=== PATIENT | male | born 1980 | race Caucasian/White ===

== ENCOUNTER → 2017-01-31 | Day surgery (SDC) | payer MEDICAID ==
[~2017-01-31] VITALS: Ht 175.3 cm; Wt 70.9 kg
[~2017-01-31] MED LIST: *morphine SULFATE 8 MG/ML PERIprocedure ONLY ONE; ACETAMINOPHEN/HYDROcodone 325 MG/5 MG TAB ONE; ACETAMINOPHEN/HYDROcodone 325 MG/5 MG TAB PO PRN; AMLO5 PO; APIX5TAB PO; ATEN-100 PO; B12-1CHW CHEW; BUPIVACAINE/EPINEPHRINE 0.5% 50 ML VIAL ONE; BUTACAP2 PO; CHLORHEXIDINE GLUCONATE 2 % 1 PACK (2 CLOTHS) TOPICAL PRN; CHOL1CAP34 PO; DO NOT ADM ANY ANTICOAGULANT DRUGS PRN; ENOX40P SQ; FERR325T PO; FLUO40CA PO; FURO1TAB60 PO; GABA600T PO; GELFOAM SIZE 100 ONE; GINK500C PO; HEPARIN SODIUM - IV 10,000 UNITS/10 ML VIAL ONE; HEPARIN SODIUM - SQ 10,000 UNITS/ML VIAL ONE; HUMALOG SQ; INSULIN HUMAN REGULAR 1,000 UNITS/10 ML VIAL SQ PRN; IRON27TA PO; LACTATED RINGER'S 1000 ML IV PRN; LISI-360 PO; LISI40TA PO; LYRI150C PO; MAGNESIUM SULFATE 1 GM/100 ML IV PRN; METOPROLOL TARTRATE 25 MG TAB PO PRN; MORPHINE SULFATE 4 MG/ML INJ IV PRN; ONDANSETRON HCL 4 MG/2 ML VIAL IV PUSH PRN; PARI1CAP PO; POTASSIUM CHLOR 20 MEQ 100 ML x 2 BAGS IV PRN; POTASSIUM CHLOR 20 MEQ/100 ML x 1 BAG IV PRN; POTASSIUM PHOSPHATE 21 MMOL/NS 250 ML IV PRN; POVIDONE IODINE 5% (ANTISEPSIS KIT) 4 APPLICATIONS EACH NARE PRN; PROPOFOL 200 MG/20 ML AMP IV ONE; PROT40TA PO; PROTAMINE SULFATE 50 MG/5 ML VIAL ONE; SERT-129 PO; SIMV20 PO; SODIUM CHLOR 0.9% 250 ML INJ 250 ML ONE; SODIUM CHLORID 0.9% 500 ML IV PRN; SODIUM CHLORIDE 0.9% FLUSH 10 ML FLUSH IV FLUSH PRN; SODIUM CHLORIDE 0.9% FLUSH 10 ML FLUSH IV FLUSH SCH; THROMBIN (TOPICAL) 5,000 UNIT VIAL ONE; TOPA50TA7 PO; TRAM50TA PO; VANCOMYCIN HCL 1000 MG VIAL ONE; VITA500C PO; [UNRECOGNIZED DRUG - CODE] PO
--- NOTE | 2017-01-31 07:51 | RADRPT ---
EXAM DATE/TIME: 01/31/2017 07:25 [facility] COMPARISON: CHEST SINGLE AP, July 21, 2013, 5:33. INDICATIONS : Pre-op fistula. Evaluate for pneumonia, pneumothorax or other communicable diseases. MEDICAL HISTORY : Hypercholesterolemia. Hypertension. Diabetic, ADHD, renal failure. SURGICAL HISTORY : Left eye surgery. ENCOUNTER: Initial ACUITY: 1 day PAIN SCORE: 0/10 LOCATION: Bilateral chest FINDINGS: A single view of the chest demonstrates the lungs to be symmetrically aerated without evidence of mas s, infiltrate or effusion. The cardiomediastinal contours are unremarkable. Osseous structures are intact. CONCLUSION: 1. No acute cardiopulmonary disease. Coy Goldsmith MD on January 31, 2017 at 7:49 Board Certified Radiologist. This report was verified electronically.
[2017-01-31 08:04] LABS: AUTOMATED NEUTROPHIL # 2.9 TH/MM3 (1.8-7.7); BASOPHIL % 0.6 % (0.0-2.0); EOSINOPHIL # 0.1 TH/MM3 (0-0.4); HEMATOCRIT 33.4 % (39.0-51.0); HEMO FLAGS DIFF FINAL; LYMPH % 40.7 % (9.0-44.0); LYMPHOCYTE # 2.4 TH/MM3 (1.0-4.8); MEAN CELL VOLUME 87.4 FL (80.0-100.0); MEAN CORPUSCULAR HEMOGLOBIN 28.2 PG (27.0-34.0); MEAN CORPUSCULAR HGB CONC 32.3 % (32.0-36.0); MONO % 7.6 % (0.0-8.0); NEUT % 49.1 % (16.0-70.0); PLATELET COUNT 188 TH/MM3 (150-450); RED BLOOD COUNT 3.82 MIL/MM3 (4.50-5.90); RED CELL DISTRIBUTION WIDTH 13.6 % (11.6-17.2); WHITE BLOOD COUNT 5.9 TH/MM3 (4.0-11.0)
[2017-01-31 08:10] VITALS: BP 163/99; PULSE 79; RESP 20; TEMP 97.6; O2SAT 100
[2017-01-31 08:42] LABS: BICARBONATE 19.6 MEQ/L (21.0-32.0); POTASSIUM 3.7 MEQ/L (3.5-5.1)
--- NOTE | 2017-01-31 10:44 | EKG ---
Date Performed: 01/31/2017 Time Performed: 07:29:14 PTAGE: 36 years EKG: Sinus rhythm NORMAL ECG PREVIOUS TRACING : 05/20/2015 11.41 The prior changes suggestive of hyperkalemia have completel y resolved in this tracing. DOCTOR: Tommie Long Interpretating Date/Time 01/31/2017 10:43:51
[2017-01-31 12:30] VITALS: BP 136/89; PULSE 78; RESP 18; TEMP 97.6; O2SAT 99
--- NOTE | 2017-01-31 15:14 | MP ---
cc: MARINO FINN DATE OF SURGERY: 01/31/2017 PREOPERATIVE DIAGNOSIS End-stage renal disease, need for hemodialysis, history of failed access. POSTOPERATIVE DIAGNOSIS End-stage renal disease, need for hemodialysis, history of failed access. PROCEDURE Right upper extremity brachiocephalic AV fistula. SURGEON Marino Finn. [employer] Toney Bach. SEDATION MAC with local, approximately 10 cc of 0.25% Marcaine with epinephrine. FLUIDS 400 cc crystalloid. ESTIMATED BLOOD LOSS Minimal. URINE OUTPUT Not calculated. COMPLICATIONS None. DISPOSITION To PACU. DETAILS OF PROCEDURE The patient's right upper extremity was prepped and draped in sterile fashion after being under MAC anesthesia and given one gram of IV vancomycin. I got access making a linear incision in the area of the snuffbox on the right wrist. With a scalpel and electrocautery I dissected down through the surrounding tissue of the radial artery. The radial artery was marbled and calcified at this level. The radial artery was isolated with two vessel loops. I then isolated the cephalic vein which was preoperatively marked. This was at the level of the wrist. I divided it distally with multiple small clips. Once I divided it I was able to instill heparinized saline and performed my arteriotomy with a [place] blade and micro Pedraza scissors. I performed an end-to-side anastomosis with 6-0 Prolene in continuous running fashion. At the end of the procedure there was a good thrill in the vessel and distally underneath the skin there was a pulsation. There was still a good signal in the palmar arch and distally in the radial artery. I did use thrombin, Gelfoam, Surgicel and Jamila to help out with hemostasis. The patient was oozing at the end of the case. Once I felt like I had good hemostasis I closed in layers with 3-0 Vicryl and 4-0 Monocryl stitch and Dermabond for the skin. DO RUCHI Duran/GERHARD /10:45 AM /3:10 PM
== END | disposition home or self-care (01) ==
LOC: HSDC 07:03
PROVIDERS: ATTEND Surgery
DX: I12.0 Hypertensive chronic kidney disease with stage 5 chronic kidney disease or end stage renal disease (principal); N18.6 End stage renal disease; E78.00 Pure hypercholesterolemia, unspecified; E11.9 Type 2 diabetes mellitus without complications; I12.9 Hypertensive chronic kidney disease with stage 1 through stage 4 chronic kidney disease, or unspecified chronic kidney disease; E10.22 Type 1 diabetes mellitus with diabetic chronic kidney disease; N18.4 Chronic kidney disease, stage 4 (severe); F32.9 Major depressive disorder, single episode, unspecified
CPT/HCPCS: 01780; 36818; 71010; 76937; 80048; 82948; 85025; 86850; 86900; 86901; 93005; J1644; J2270; J3010; J3370; J7050; J7120; J2720

== ENCOUNTER 2017-05-18 16:49 | Emergency (ER) | payer MEDICAID ==
[~2017-05-18 16:49] MED LIST changes: -*morphine SULFATE 8 MG/ML PERIprocedure ONLY ONE; -ACETAMINOPHEN/HYDROcodone 325 MG/5 MG TAB ONE; -ACETAMINOPHEN/HYDROcodone 325 MG/5 MG TAB PO PRN; -AMLO5 PO; -ATEN-100 PO; -B12-1CHW CHEW; -BUPIVACAINE/EPINEPHRINE 0.5% 50 ML VIAL ONE; -BUTACAP2 PO; -CHLORHEXIDINE GLUCONATE 2 % 1 PACK (2 CLOTHS) TOPICAL PRN; -DO NOT ADM ANY ANTICOAGULANT DRUGS PRN; -FERR325T PO; -FLUO40CA PO; -GABA600T PO; -GELFOAM SIZE 100 ONE; -GINK500C PO; -HEPARIN SODIUM - IV 10,000 UNITS/10 ML VIAL ONE; -HEPARIN SODIUM - SQ 10,000 UNITS/ML VIAL ONE; -INSULIN HUMAN REGULAR 1,000 UNITS/10 ML VIAL SQ PRN; -IRON27TA PO; -LACTATED RINGER'S 1000 ML IV PRN; -LISI-360 PO; -LISI40TA PO; -MAGNESIUM SULFATE 1 GM/100 ML IV PRN; -METOPROLOL TARTRATE 25 MG TAB PO PRN; -MORPHINE SULFATE 4 MG/ML INJ IV PRN; -ONDANSETRON HCL 4 MG/2 ML VIAL IV PUSH PRN; -POTASSIUM CHLOR 20 MEQ 100 ML x 2 BAGS IV PRN; -POTASSIUM CHLOR 20 MEQ/100 ML x 1 BAG IV PRN; -POTASSIUM PHOSPHATE 21 MMOL/NS 250 ML IV PRN; -POVIDONE IODINE 5% (ANTISEPSIS KIT) 4 APPLICATIONS EACH NARE PRN; -PROPOFOL 200 MG/20 ML AMP IV ONE; -PROT40TA PO; -PROTAMINE SULFATE 50 MG/5 ML VIAL ONE; -SIMV20 PO; -SODIUM CHLOR 0.9% 250 ML INJ 250 ML ONE; -SODIUM CHLORID 0.9% 500 ML IV PRN; -SODIUM CHLORIDE 0.9% FLUSH 10 ML FLUSH IV FLUSH PRN; -SODIUM CHLORIDE 0.9% FLUSH 10 ML FLUSH IV FLUSH SCH; -THROMBIN (TOPICAL) 5,000 UNIT VIAL ONE; -VANCOMYCIN HCL 1000 MG VIAL ONE; -VITA500C PO; -[UNRECOGNIZED DRUG - CODE] PO
[2017-05-18 16:56] VITALS: BP 129/66; PULSE 90; RESP 18; TEMP 98.2; O2SAT 100
[2017-05-18] MEDS ORDERED: SODI325T PO (17:15)
[2017-05-18] MEDS ORDERED: ASPI1CHW4 CHEW (17:15)
[2017-05-18] MEDS ORDERED: LORA1CHW2 CHEW (17:15)
[2017-05-18] MEDS ORDERED: Insulin Pump (17:15)
--- NOTE | 2017-05-18 17:56 | PD ---
HPI Chief Complaint: Skin Problem Time Seen by Provider: 17:15 Travel History International Travel<30 days: No Contact w/Intl Traveler<30days: No Traveled to known affect area: No History of Present Illness HPI 36-year-old male presents to emergency department with a 3 day history of a lesion on his upper right back. States he has had multiple abscesses before and has them drained and believes this is was going on today. He does not know why he has this lesion as he states he has good hygiene. Patient denies fever, chills, chest pain, short of breath, abdominal pain, illicit drug use. States he has chronic nausea for which he takes Zofran on a regular basis. Patient has had a history of MRSA pneumonia within the last year required admission. Patient has diabetes mellitus type 1, end-stage renal disease, and partial blindness. PFSH Past Medical History ADHD: Yes (HX OF) Arthritis: No Asthma: No Autoimmune Disease: No Blood Disorders: No Anxiety: No Depression: Yes Heart Rhythm Problems: No Cancer: No Cardiovascular Problems: No High Cholesterol: No Chemotherapy: No Chest Pain: No Congestive Heart Failure: No COPD: No Cerebrovascular Accident: No Diabetes: Yes (HAS INSULIN PUMP) Patient Takes Glucophage: No Diminished Hearing: No Endocrine: Yes Gastrointestinal Disorders: Yes (GERD, DIARRHEA) GERD: Yes Glaucoma: No Genitourinary: Yes (SLOW STREAM) Headaches: Yes Hepatitis: No Hiatal Hernia: No Hypertension: Yes Immune Disorder: No Implanted Vascular Access Dvce: No Kidney Stones: No Musculoskeletal: Yes (SCOLIOSIS, RIGHT ULNAR FX., DROP FOOT TO LEFT FOOT) Neurologic: Yes (NEUROPATHY, SEIZURES WITH LOW BLD SUGAR, NUMBNESS TO LEFT HAND ) Psychiatric: Yes (MILD DEPRESSION) Reproductive: Yes (ERECTILE DYSFUNCTION) Respiratory: No Immunizations Current: Yes Migraines: Yes Myocardial Infarction: No Radiation Therapy: No Renal Failure: Yes Seizures: No Sickle Cell Disease: No Sleep Apnea: No Thyroid Disease: No Ulcer: Yes Tetanus Vaccination: > 5 Years Influenza Vaccination: Yes PNEUMOCCOCAL Vaccine (Year): 3 Past Surgical History Abdominal Surgery: No AICD: No Appendectomy: No Arteriovenous Shunt: No Body Medical Devices: SCREWS IN RIGHT FOOT Cardiac Surgery: No Cholecystectomy: No Ear Surgery: No Endocrine Surgery: No Eye Surgery: Yes (LEFT EYE SURGERY 10/27/2010) Genitourinary Surgery: No Gynecologic Surgery: No Insulin Pump: No Joint Replacement: No Neurologic Surgery: No Oral Surgery: No Pacemaker: No Thoracic Surgery: No Other Surgery: Yes (LEFT EYE SURGERY (10/27)) Social History Alcohol Use: No Tobacco Use: No Substance Use: No ("none in a couple years") Allergies-Medications (Allergen,Severity, Reaction): Coded Allergies: amoxicillin (Unverified Allergy, Severe, Rash, 05/18/17) broccoli (Unverified Allergy, Severe, ANAPHYLAXIS, 05/18/17) mushroom (Unverified Allergy, Severe, ANAPHYLAXIS, 05/18/17) penicillin G (Unverified Allergy, Severe, Hives, 05/18/17) *MDRO Multi-Drug Resistant Organism (Unverified Adverse Reaction, Unknown , 05/18/17) MRSA 06/2014 and 11/2009. MRSA PCR Screen positive 05/21/15. Reported Meds & Prescriptions Reported Meds & Active Scripts Active Clindamycin (Clindamycin HCl) 300 Mg Cap 300 Mg PO TID 7 Days Reported [Insulin Pump] Aspirin 81 Low Dose (Aspirin) 81 Mg Chew 81 Mg CHEW DAILY Claritin (Loratadine) 5 Mg Chew 5 Mg CHEW DAILY Sodium Bicarbonate 325 Mg Tab 325 Mg PO BIDPC Sertraline (Sertraline HCl) 100 Mg Tab 100 Mg PO DAILY Lasix (Furosemide) 40 Mg Tab 40 Mg PO DAILY Eliquis (Apixaban) 5 Mg Tab 5 Mg PO BID Vitamin D3 (Cholecalciferol) 50,000 Unit Cap 50,000 Units PO Q7D Topamax (Topiramate) 50 Mg Tab 50 Mg PO BID Paricalcitol 4 Mcg Cap 4 Mcg PO HS Tramadol (Tramadol HCl) 50 Mg Tab 50 Mg PO Q6H PRN Review of Systems Except as stated in HPI: all other systems reviewed are Neg Physical Exam Narrative GENERAL: Well-developed well-nourished SKIN: Focused skin assessment warm/dry. Right upper back 3-4 cm elevated lesion with central fluctuance with puncta and surrounding erythema. Tenderness to palpation. No discharge from the lesion. No lymphangitic Spread HEAD: Atraumatic. Normocephalic. EYES: Pupils equal and round. No scleral icterus. No injection or drainage. Partially blind. CARDIOVASCULAR: Regular rate and rhythm. No murmur appreciated. RESPIRATORY: No accessory muscle use. Clear to auscultation. Breath sounds equal bilaterally. GASTROINTESTINAL: Abdomen soft, non-tender, nondistended. Hepatic and splenic margins not palpable. MUSCULOSKELETAL: No obvious deformities. No clubbing. No cyanosis. No edema. NEUROLOGICAL: Awake and alert. No obvious cranial nerve deficits. Motor grossly within normal limits. Normal speech. PSYCHIATRIC: Appropriate mood and affect; insight and judgment normal. Data Data Last Documented VS Vital Signs Date Time Temp Pulse Resp B/P (MAP) Pulse Ox O2 Delivery O2 Flow Rate FiO2 05/18/17 16:56 98.2 90 18 129/66 (87) 100 Orders Orders Wound Culture And Gram Stain (05/18/17 17:46) Clindamycin Inj (Cleocin Inj) (05/18/17 18:00) Ed Discharge Order (05/18/17 17:58) [facility] Medical Decision Making Medical Screen Exam Complete: Yes Emergency Medical Condition: Yes Differential Diagnosis Right upper back abscess versus cellulitis versus erysipelas Narrative Course 36-year-old male presents to emergency department with a 3 day history of a lesion on his upper right back. States he has had multiple abscesses before and has them drained. He does not know why he has this lesion as he states he has good hygiene. Patient denies fever, chills, chest pain, short of breath, abdominal pain, illicit drug use. States he has chronic nausea for which he takes Zofran on a regular basis. Patient has had a history of MRSA pneumonia within the last year required admission. Patient has diabetes mellitus type 1, end-stage renal disease, and partial blindness. Physical exam: Right upper back 3-4 cm elevated lesion with central fluctuation with puncta and surrounding erythema with induration. Tenderness to palpation. No discharge from the lesion. Vital signs stable Incision and drainage performed, light packing, bulky dressing Clindamycin 600 mg IM today Clindamycin for home antibiotic Advised to follow up with his primary care physician within 2 days Procedures Procedure Narrative INCISION AND DRAINAGE OF ABSCESS: The area was prepped and draped. A subcutaneous wheal of 1 % Xylocaine without epi with a total number 1.5 mL was used to anesthetize the area properly. A number 11 scalpel was used to make a 3 mm and 2 mm starrate incision across the area of the abscess. The abscess was drained, complex loculations were broken down, and irrigated with normal saline. Cultures were obtained. Quarter inch iodoform packing was placed in the wound. Sterile dressing applied. Patient advised to have packing removed in two days. Diagnosis Primary Impression: Abscess Referrals: Primary Care Physician Additional Instructions: Change dressings in about 24 hours Keep area clean and dry Take all medications as prescribed If you develop fever, chills, worsening of the pain or incision site return to the emergency department Follow-up with her primary care physician within 2 days Scripts Clindamycin (Clindamycin) 300 Mg Cap 300 MG PO TID for Infection for 7 Days, CAP 0 Refills Prov: Frank Saleem MD 05/18/17 Disposition: 01 DISCHARGE HOME Condition: Stable Hyacinth Sawant May 18, 2017 17:56
[2017-05-18] MEDS ORDERED: CLIN300C5 PO (17:57)
[2017-05-18] MEDS ORDERED: CLINDAMYCIN PHOS 600 MG/4 ML VIAL IM ONE (18:00)
--- NOTE | 2017-05-18 18:15 | PD ---
HPI . This report is in ERROR Please disregard this report and all prior copies ! This report is in ERROR Please disregard this report and all prior copies ! This report is in ERROR Please disregard this report and all prior copies ! Chief Complaint: Skin Problem Time Seen by Provider: 17:15 Travel History International Travel<30 days: No Contact w/Intl Traveler<30days: No Traveled to known affect area: No History of Present Illness HPI This report is in ERROR Please disregard this report and all prior copies ! This report is in ERROR Please disregard this report and all prior copies ! This report is in ERROR Please disregard this report and all prior copies ! PFSH Past Medical History ADHD: Yes (HX OF) Arthritis: No Asthma: No Autoimmune Disease: No Blood Disorders: No Anxiety: No Depression: Yes Heart Rhythm Problems: No Cancer: No Cardiovascular Problems: No High Cholesterol: No Chemotherapy: No Chest Pain: No Congestive Heart Failure: No COPD: No Cerebrovascular Accident: No Diabetes: Yes (HAS INSULIN PUMP) Diminished Hearing: No Endocrine: Yes Gastrointestinal Disorders: Yes (diarrhea) GERD: Yes Glaucoma: No Genitourinary: Yes (SLOW STREAM) Headaches: Yes Hepatitis: No Hiatal Hernia: No Hypertension: Yes Immune Disorder: No Implanted Vascular Access Dvce: No Kidney Stones: No Musculoskeletal: Yes (SCOLIOSIS, RIGHT ULNAR FX., DROP FOOT TO LEFT FOOT) Neurologic: Yes (NEUROPATHY, SEIZURES WITH LOW BLD SUGAR, NUMBNESS TO LEFT HAND ) Psychiatric: Yes (MILD DEPRESSION) Reproductive: Yes (ERECTILE DYSFUNCTION) Respiratory: No Immunizations Current: Yes Migraines: Yes Myocardial Infarction: No Radiation Therapy: No Renal Failure: Yes Seizures: No Sickle Cell Disease: No Sleep Apnea: No Thyroid Disease: No Ulcer: Yes PNEUMOCCOCAL Vaccine (Year): 3 Past Surgical History Abdominal Surgery: No AICD: No Appendectomy: No Arteriovenous Shunt: No Body Medical Devices: SCREWS IN RIGHT FOOT Cardiac Surgery: No Cholecystectomy: No Ear Surgery: No Endocrine Surgery: No Eye Surgery: Yes (LEFT EYE SURGERY 10/27/2010) Genitourinary Surgery: No Gynecologic Surgery: No Insulin Pump: No Joint Replacement: No Neurologic Surgery: No Oral Surgery: No Pacemaker: No Thoracic Surgery: No Other Surgery: Yes (LEFT EYE SURGERY (10/27)) Social History Alcohol Use: No Tobacco Use: No Substance Use: No Allergies-Medications (Allergen,Severity, Reaction): Coded Allergies: amoxicillin (Unverified Allergy, Severe, Rash, 05/18/17) broccoli (Unverified Allergy, Severe, ANAPHYLAXIS, 05/18/17) mushroom (Unverified Allergy, Severe, ANAPHYLAXIS, 05/18/17) penicillin G (Unverified Allergy, Severe, Hives, 05/18/17) *MDRO Multi-Drug Resistant Organism (Unverified Adverse Reaction, Unknown , 05/18/17) MRSA 06/2014 and 11/2009. MRSA PCR Screen positive 05/21/15. Reported Meds & Prescriptions Reported Meds & Active Scripts Active Clindamycin (Clindamycin HCl) 300 Mg Cap 300 Mg PO TID 7 Days Reported [Insulin Pump] Aspirin 81 Low Dose (Aspirin) 81 Mg Chew 81 Mg CHEW DAILY Claritin (Loratadine) 5 Mg Chew 5 Mg CHEW DAILY Sodium Bicarbonate 325 Mg Tab 325 Mg PO BIDPC Sertraline (Sertraline HCl) 100 Mg Tab 100 Mg PO DAILY Lasix (Furosemide) 40 Mg Tab 40 Mg PO DAILY Eliquis (Apixaban) 5 Mg Tab 5 Mg PO BID Vitamin D3 (Cholecalciferol) 50,000 Unit Cap 50,000 Units PO Q7D Topamax (Topiramate) 50 Mg Tab 50 Mg PO BID Paricalcitol 4 Mcg Cap 4 Mcg PO HS Tramadol (Tramadol HCl) 50 Mg Tab 50 Mg PO Q6H PRN Physical Exam Narrative This report is in ERROR Please disregard this report and all prior copies ! This report is in ERROR Please disregard this report and all prior copies ! This report is in ERROR Please disregard this report and all prior copies ! Data Data Last Documented VS Vital Signs Date Time Temp Pulse Resp B/P (MAP) Pulse Ox O2 Delivery O2 Flow Rate FiO2 05/18/17 16:56 98.2 90 18 129/66 (87) 100 Orders Orders Wound Culture And Gram Stain (05/18/17 17:46) Clindamycin Inj (Cleocin Inj) (05/18/17 18:00) Ed Discharge Order (05/18/17 17:58) MDM Medical Decision Making Medical Screen Exam Complete: Yes Emergency Medical Condition: Yes Differential Diagnosis This report is in ERROR Please disregard this report and all prior copies ! This report is in ERROR Please disregard this report and all prior copies ! This report is in ERROR Please disregard this report and all prior copies ! Narrative Course This report is in ERROR Please disregard this report and all prior copies ! This report is in ERROR Please disregard this report and all prior copies ! This report is in ERROR Please disregard this report and all prior copies ! Scripts Clindamycin (Clindamycin) 300 Mg Cap 300 MG PO TID for Infection for 7 Days, CAP 0 Refills Prov: Frank Saleem MD 05/18/17 Hyacinth Sawant May 18, 2017 18:15
== END 2017-05-18 18:13 | disposition home or self-care (01) ==
LOC: PHEFT 16:49
DX: L02.212 Cutaneous abscess of back [any part, except buttock and flank] (principal); B95.61 Methicillin susceptible Staphylococcus aureus infection as the cause of diseases classified elsewhere; E10.22 Type 1 diabetes mellitus with diabetic chronic kidney disease; I12.0 Hypertensive chronic kidney disease with stage 5 chronic kidney disease or end stage renal disease; N18.6 End stage renal disease; Z79.4 Long term (current) use of insulin; Z79.01 Long term (current) use of anticoagulants
CPT/HCPCS: 10061; 86403; 87070; 87186; 87205; 96372

== ENCOUNTER 2017-06-06 23:39 | Emergency (ER) | payer MEDICAID ==
[~2017-06-06] VITALS: Ht 175.3 cm; Wt 76.7 kg
[~2017-06-06 23:39] MED LIST changes: +ASPI1CHW4 CHEW; +CLIN300C5 PO; -ENOX40P SQ; -HUMALOG SQ; +Insulin Pump; +LORA1CHW2 CHEW; -LYRI150C PO; +SODI325T PO
[2017-06-06 23:47] VITALS: BP 153/82; PULSE 94; RESP 20; TEMP 98.6; O2SAT 100
[2017-06-07 01:15] VITALS: BP 153/82; PULSE 94; RESP 20; TEMP 98.6; O2SAT 100
[2017-06-07 02:00] VITALS: BP 142/80; PULSE 88; RESP 18; O2SAT 99
--- NOTE | 2017-06-07 03:39 | PD ---
HPI Chief Complaint: Oral / Dental Pain or Problem Time Seen by Provider: 01:28 Travel History International Travel<30 days: No Contact w/Intl Traveler<30days: No Traveled to known affect area: No History of Present Illness HPI Patient reports for the last few days he's had severe upper right premolar pain that shoots up into his maxillary area pain is sharp stabbing sudden onset. Patient says he was playing video games and suddenly 2 days ago it sudden lancinating pain went up his maxillary cheek area. He took nothing for the pain. Pain continues in the ER. Patient is an insulin-dependent diabetic since he was a child he has an insulin pump running. He reports being legally blind. Patient has not seen another doctor for this pain pain radiates from the upper tooth into the maxillary area PFSH Past Medical History Hx Anticoagulant Therapy: Yes ADHD: Yes (HX OF) Arthritis: No Asthma: No Autoimmune Disease: No Blood Disorders: No Anxiety: No Depression: Yes Heart Rhythm Problems: No Cancer: No Cardiovascular Problems: No High Cholesterol: No Chemotherapy: No Chest Pain: No Congestive Heart Failure: No COPD: No Cerebrovascular Accident: Yes Diabetes: Yes Patient Takes Glucophage: No Diminished Hearing: No Endocrine: Yes Gastrointestinal Disorders: Yes (GERD, DIARRHEA) GERD: Yes Glaucoma: No Genitourinary: Yes (SLOW STREAM) Headaches: Yes Hepatitis: No Hiatal Hernia: No Hypertension: Yes Immune Disorder: No Implanted Vascular Access Dvce: No Kidney Stones: No Musculoskeletal: Yes (SCOLIOSIS, RIGHT ULNAR FX., DROP FOOT TO LEFT FOOT) Neurologic: Yes (NEUROPATHY, SEIZURES WITH LOW BLD SUGAR, NUMBNESS TO LEFT HAND ) Psychiatric: Yes (MILD DEPRESSION) Reproductive: Yes (ERECTILE DYSFUNCTION) Respiratory: No Immunizations Current: Yes Migraines: Yes Myocardial Infarction: No Radiation Therapy: No Renal Failure: Yes Seizures: No Sickle Cell Disease: No Sleep Apnea: No Thyroid Disease: No Ulcer: Yes PNEUMOCCOCAL Vaccine (Year): 3 Past Surgical History Abdominal Surgery: No AICD: No Appendectomy: No Arteriovenous Shunt: No Body Medical Devices: SCREWS IN RIGHT FOOT Cardiac Surgery: No Cholecystectomy: No Ear Surgery: No Endocrine Surgery: No Eye Surgery: Yes (LEFT EYE SURGERY 10/27/2010) Genitourinary Surgery: No Gynecologic Surgery: No Insulin Pump: No Joint Replacement: No Neurologic Surgery: No Oral Surgery: No Pacemaker: No Thoracic Surgery: No Other Surgery: Yes (LEFT EYE SURGERY (10/27)) Social History Alcohol Use: No Tobacco Use: No Substance Use: No ("none in a couple years") Allergies-Medications (Allergen,Severity, Reaction): Coded Allergies: amoxicillin (Verified Allergy, Severe, Rash, 06/07/17) broccoli (Verified Allergy, Severe, ANAPHYLAXIS, 06/07/17) mushroom (Verified Allergy, Severe, ANAPHYLAXIS, 06/07/17) penicillin G (Verified Allergy, Severe, Hives, 06/07/17) *MDRO Multi-Drug Resistant Organism (Verified Adverse Reaction, Unknown, 06/07/17) MRSA 06/2014 and 11/2009. MRSA PCR Screen positive 05/21/15. Reported Meds & Prescriptions Reported Meds & Active Scripts Active Acidophilus Capsule (L. Acidophilus/Pectin, [place]) 7.5 Mg (30 Million Cell)- 100 Mg Capsule 1 Cap PO TID Tramadol (Tramadol HCl) 50 Mg Tab 50 Mg PO Q6H PRN Clindamycin (Clindamycin HCl) 300 Mg Cap 300 Mg PO TID Reported [Insulin Pump] Aspirin 81 Low Dose (Aspirin) 81 Mg Chew 81 Mg CHEW DAILY Claritin (Loratadine) 5 Mg Chew 5 Mg CHEW DAILY Sodium Bicarbonate 325 Mg Tab 325 Mg PO BIDPC Sertraline (Sertraline HCl) 100 Mg Tab 100 Mg PO DAILY Lasix (Furosemide) 40 Mg Tab 40 Mg PO DAILY Eliquis (Apixaban) 5 Mg Tab 5 Mg PO BID Vitamin D3 (Cholecalciferol) 50,000 Unit Cap 50,000 Units PO Q7D Topamax (Topiramate) 50 Mg Tab 50 Mg PO BID Paricalcitol 4 Mcg Cap 4 Mcg PO HS Tramadol (Tramadol HCl) 50 Mg Tab 50 Mg PO Q6H PRN Review of Systems Except as stated in HPI: all other systems reviewed are Neg Physical Exam Narrative GENERAL: Patient's hair is unkempt otherwise normal appearance SKIN: Warm and dry. HEAD: Atraumatic. Normocephalic. EYES: Pupils equal and round. No scleral icterus. No injection or drainage. ENT: No nasal bleeding or discharge. Mucous membranes pink and moist. Patient' s right upper premolar tooth #3 is cracked and above tooth #2 there is a little erosion at the gingival bugle line no purulence smelled or seen NECK: Trachea midline. No JVD. CARDIOVASCULAR: Regular rate and rhythm. RESPIRATORY: No accessory muscle use. Clear to auscultation. Breath sounds equal bilaterally. GASTROINTESTINAL: Abdomen soft, non-tender, nondistended. Hepatic and splenic margins not palpable. MUSCULOSKELETAL: Extremities without clubbing, cyanosis, or edema. No obvious deformities. NEUROLOGICAL: Awake and alert. No obvious cranial nerve deficits. Motor grossly within normal limits. Five out of 5 muscle strength in the arms and legs. Normal speech. PSYCHIATRIC: Appropriate mood and affect; insight and judgment normal. Data Data Last Documented VS Vital Signs Date Time Temp Pulse Resp B/P (MAP) Pulse Ox O2 Delivery O2 Flow Rate FiO2 06/07/17 03:59 92 18 137/87 (104) 98 06/07/17 02:00 Room Air 06/07/17 01:15 98.6 Orders Orders Ketorolac Inj (Toradol Inj) (06/07/17 03:45) Clindamycin (Cleocin) (06/07/17 03:45) Tramadol (Ultram) (06/07/17 03:45) Ed Discharge Order (06/07/17 03:59) MDM Medical Decision Making Medical Screen Exam Complete: Yes Emergency Medical Condition: Yes Differential Diagnosis apical abscess vs tooth decay vs facial cellulitis Narrative Course pt has Clindamycin PO and tramadol and feels much better and will d/c with dental follow up and clindamycin and tramadol and acidophilus cap to prevent c-diff Diagnosis Primary Impression: Tooth ache Scripts L. Acidophilus/Pectin, [place] (Acidophilus Capsule) 7.5 Mg (30 Million Cell)- 100 Mg Capsule 1 CAP PO TID, #30 Prov: Grupo Pagan MD 06/07/17 Tramadol (Tramadol) 50 Mg Tab 50 MG PO Q6H Y for PAIN, #10 TAB 0 Refills Prov: Grupo Pagan MD 06/07/17 Clindamycin (Clindamycin) 300 Mg Cap 300 MG PO TID for Infection, #21 CAP 0 Refills Prov: Grupo Pagan MD 06/07/17 Disposition: 01 DISCHARGE HOME Condition: Good Grupo Pagan MD Jun 07, 2017 03:39
[2017-06-07] MEDS ORDERED: traMADol HCL 50 MG TAB PO ONE (03:45)
[2017-06-07] MEDS ORDERED: CLINDAMYCIN 150 MG CAP PO ONE (03:45)
[2017-06-07] MEDS ORDERED: KETOROLAC TROMETHAMINE 60 MG/2 ML (IM) VIAL IM ONE (03:45)
[2017-06-07] MEDS ORDERED: CLIN300C5 PO (03:55)
[2017-06-07] MEDS ORDERED: L. A1CAP PO (03:58)
[2017-06-07] MEDS ORDERED: TRAM50TA PO (03:58)
[2017-06-07 03:59] VITALS: BP 137/87
== END 2017-06-07 04:08 | disposition home or self-care (01) ==
LOC: PHED 23:39
DX: K08.89 Other specified disorders of teeth and supporting structures (principal); E11.9 Type 2 diabetes mellitus without complications; Z79.4 Long term (current) use of insulin
CPT/HCPCS: 96372; 99284; J1885

== ENCOUNTER 2017-07-08 14:24 | Emergency (ER) | payer MEDICAID ==
[~2017-07-08] VITALS: Ht 175.3 cm; Wt 70.0 kg
[~2017-07-08 14:24] MED LIST changes: +L. A1CAP PO
[2017-07-08 14:38] VITALS: BP 139/55; PULSE 90; RESP 16; TEMP 98.2; O2SAT 100
[2017-07-08] MEDS ORDERED: SODIUM CHLOR 0.9% 1000 ML INJ 1,000 ML IV ONE (15:00)
[2017-07-08] MEDS ORDERED: ONDANSETRON HCL 4 MG/2 ML VIAL IV PUSH ONE (15:00)
[2017-07-08] MEDS ORDERED: SODIUM CHLORIDE 0.9% FLUSH 10 ML FLUSH IVF PRN (15:00)
[2017-07-08 15:18] LABS: AUTOMATED NEUTROPHIL # 4.2 TH/MM3 (1.8-7.7); BASOPHIL % 0.5 % (0.0-2.0); EOSINOPHIL # 0.1 TH/MM3 (0-0.4); EOSINOPHIL % 1.9 % (0.0-4.0); HEMATOCRIT 31.9 % (39.0-51.0); HEMOGLOBIN 10.2 GM/DL (13.0-17.0); LYMPH % 24.1 % (9.0-44.0); LYMPHOCYTE # 1.5 TH/MM3 (1.0-4.8); MEAN CELL VOLUME 85.9 FL (80.0-100.0); MEAN CORPUSCULAR HEMOGLOBIN 27.5 PG (27.0-34.0); MEAN PLATELET VOLUME 8.9 FL (7.0-11.0); MONO % 5.8 % (0.0-8.0); MONOCYTE # 0.4 TH/MM3 (0-0.9); NEUT % 67.7 % (16.0-70.0); PLATELET COUNT 200 TH/MM3 (150-450); RED BLOOD COUNT 3.72 MIL/MM3 (4.50-5.90); RED CELL DISTRIBUTION WIDTH 13.2 % (11.6-17.2); WHITE BLOOD COUNT 6.2 TH/MM3 (4.0-11.0)
[2017-07-08 15:20] VITALS: BP 132/95; PULSE 77; RESP 20; O2SAT 100
[2017-07-08 15:30] LABS: CHLORIDE 104 MEQ/L (98-107); SODIUM (NA) 136 MEQ/L (136-145)
[2017-07-08 15:34] LABS: ALBUMIN 3.1 GM/DL (3.4-5.0); BICARBONATE 21.8 MEQ/L (21.0-32.0); CALCIUM 8.2 MG/DL (8.5-10.1); LIPASE 241 U/L (73-393)
[2017-07-08 15:35] LABS: BLOOD UREA NITROGEN 42 MG/DL (7-18); GLUCOSE,RANDOM 341 MG/DL (74-106); MAGNESIUM 2.6 MG/DL (1.5-2.5)
[2017-07-08 15:37] LABS: ALT (GPT) 16 U/L (12-78); AST (GOT) 13 U/L (15-37); GLOMERULAR FILTRATION RATE 20 ML/MIN (>89)
[2017-07-08 15:39] LABS: TOTAL BILIRUBIN ADULT 0.3 MG/DL (0.2-1.0); TOTAL PROTEIN 6.3 GM/DL (6.4-8.2)
[2017-07-08 15:40] LABS: ALKALINE PHOSPHATASE 92 U/L (45-117)
[2017-07-08 15:43] LABS: TROPONIN I LESS THAN 0.02 NG/ML (0.02-0.05)
[2017-07-08] MEDS ORDERED: INSULIN HUMAN REGULAR 1,000 UNITS/10 ML VIAL IV PUSH ONE (15:45)
[2017-07-08 16:13] VITALS: BP 159/64; PULSE 76; RESP 20; O2SAT 100
[2017-07-08 16:13] LABS: BILIRUBIN, URINE NEG (NEG); GLUCOSE,URINE 1000 OR GREATER mg/dL (NEG); KETONE, URINE NEG (NEG); NITRITE,URINE NEG (NEG); PH, URINE 7.5 (5.0-8.5); URINE LEUKOCYTE ESTERASE NEG (NEG)
[2017-07-08 16:14] LABS: BLOOD, URINE TRACE (NEG)
[2017-07-08 16:15] LABS: URINE COLOR STRAW (YELLW/STRAW)
[2017-07-08 16:18] LABS: AMORPHOUS SEDIMENT, URINE FEW; RBC, URINE 0-3 /hpf (0-3); SQUAMOUS EPITHELIAL CELL URINE 0-5 /hpf (0-5)
--- NOTE | 2017-07-08 16:28 | RADRPT ---
EXAM DATE/TIME: 07/08/2017 15:52 [facility] COMPARISON: CHEST SINGLE AP, January 31, 2017, 7:25. INDICATIONS : Chest pain, fever, vomiting MEDICAL HISTORY : Diabetes mellitus type I. Renal failure, chronic. SURGICAL HISTORY : None. ENCOUNTER: Initial ACUITY: 1 week PAIN SCORE: 7/10 LOCATION: Bilateral chest FINDINGS: A single view of the chest demonstrates the lungs to be symmetrically aerated without evidence of mas s, infiltrate or effusion. The cardiomediastinal contours are unremarkable. Osseous structures are intact. CONCLUSION: 1. No acute cardiopulmonary disease. Coy Goldsmith MD on July 08, 2017 at 16:26 Board Certified Radiologist. This report was verified electronically.
--- NOTE | 2017-07-08 16:47 | PD ---
HPI Chief Complaint: Diabetic Time Seen by Provider: 14:47 Travel History International Travel<30 days: No Contact w/Intl Traveler<30days: No Traveled to known affect area: No History of Present Illness HPI Patient is a 37-year-old male with history of diabetes type 1 presents emergency department for evaluation of some mild abdominal cramping generalized itching and he thinks he is in DKA. He states his sugars been running higher. States his been taking his insulin as prescribed, no cough no congestion or fever no chest pain or shortness of breath. States symptoms are moderate for the past few days and gradually worsening. Context as above. PFSH Past Medical History Hx Anticoagulant Therapy: Yes ADHD: Yes (HX OF) Arthritis: No Asthma: No Autoimmune Disease: No Blood Disorders: No Anxiety: No Depression: Yes Heart Rhythm Problems: No Cancer: No Cardiovascular Problems: No High Cholesterol: No Chemotherapy: No Chest Pain: No Congestive Heart Failure: No COPD: No Cerebrovascular Accident: Yes Diabetes: Yes Patient Takes Glucophage: No Diminished Hearing: No Endocrine: Yes Gastrointestinal Disorders: Yes (GERD, DIARRHEA) GERD: Yes Glaucoma: No Genitourinary: Yes (SLOW STREAM) Headaches: Yes Hepatitis: No Hiatal Hernia: No Hypertension: Yes Immune Disorder: No Implanted Vascular Access Dvce: No Kidney Stones: No Musculoskeletal: Yes (SCOLIOSIS, RIGHT ULNAR FX., DROP FOOT TO LEFT FOOT) Neurologic: Yes (NEUROPATHY, SEIZURES WITH LOW BLD SUGAR, NUMBNESS TO LEFT HAND ) Psychiatric: Yes (MILD DEPRESSION) Reproductive: Yes (ERECTILE DYSFUNCTION) Respiratory: No Immunizations Current: Yes Migraines: Yes Myocardial Infarction: No Radiation Therapy: No Renal Failure: Yes Seizures: No Sickle Cell Disease: No Sleep Apnea: No Thyroid Disease: No Ulcer: Yes PNEUMOCCOCAL Vaccine (Year): 3 Past Surgical History Abdominal Surgery: No AICD: No Appendectomy: No Arteriovenous Shunt: No Body Medical Devices: SCREWS IN RIGHT FOOT Cardiac Surgery: No Cholecystectomy: No Ear Surgery: No Endocrine Surgery: No Eye Surgery: Yes (LEFT EYE SURGERY 10/27/2010) Genitourinary Surgery: No Gynecologic Surgery: No Insulin Pump: No Joint Replacement: No Neurologic Surgery: No Oral Surgery: No Pacemaker: No Thoracic Surgery: No Other Surgery: Yes (LEFT EYE SURGERY (10/27)) Social History Alcohol Use: No Tobacco Use: No Substance Use: No ("none in a couple years") Allergies-Medications (Allergen,Severity, Reaction): Coded Allergies: amoxicillin (Verified Allergy, Severe, Rash, 07/08/17) broccoli (Verified Allergy, Severe, ANAPHYLAXIS, 07/08/17) mushroom (Verified Allergy, Severe, ANAPHYLAXIS, 07/08/17) penicillin G (Verified Allergy, Severe, Hives, 07/08/17) *MDRO Multi-Drug Resistant Organism (Verified Adverse Reaction, Unknown, 07/08/17) MRSA 06/2014 and 11/2009. MRSA PCR Screen positive 05/21/15. Reported Meds & Prescriptions Reported Meds & Active Scripts Active Reported [Insulin Pump] Aspirin 81 Low Dose (Aspirin) 81 Mg Chew 81 Mg CHEW DAILY Claritin (Loratadine) 5 Mg Chew 5 Mg CHEW DAILY Sodium Bicarbonate 325 Mg Tab 325 Mg PO BIDPC Sertraline (Sertraline HCl) 100 Mg Tab 100 Mg PO DAILY Eliquis (Apixaban) 5 Mg Tab 5 Mg PO BID Vitamin D3 (Cholecalciferol) 50,000 Unit Cap 50,000 Units PO Q7D Topamax (Topiramate) 50 Mg Tab 50 Mg PO BID Paricalcitol 4 Mcg Cap 4 Mcg PO HS Tramadol (Tramadol HCl) 50 Mg Tab 50 Mg PO Q6H PRN Review of Systems Except as stated in HPI: all other systems reviewed are Neg Physical Exam Narrative GENERAL: Well-developed well-nourished in no obvious distress SKIN: Focused skin assessment warm/dry. Scattered papules on his bilateral shoulders consistent with bug bites. HEAD: Atraumatic. Normocephalic. EYES: Pupils equal and round. No scleral icterus. No injection or drainage. ENT: No nasal bleeding or discharge. Mucous membranes pink and moist. NECK: Trachea midline. No JVD. CARDIOVASCULAR: Regular rate and rhythm. No murmur appreciated. RESPIRATORY: No accessory muscle use. Clear to auscultation. Breath sounds equal bilaterally. GASTROINTESTINAL: Abdomen soft, non-tender, nondistended. Hepatic and splenic margins not palpable. 2+ bilaterally equal pulses in lower extremities, 3+ bounding pulse in the right upper extremity, associated with AV fistula at the right forearm, 2+ pulse in the left radius. MUSCULOSKELETAL: No obvious deformities. No clubbing. No cyanosis. No edema. NEUROLOGICAL: Awake and alert. No obvious cranial nerve deficits. Motor grossly within normal limits. Normal speech. PSYCHIATRIC: Appropriate mood and affect; insight and judgment normal. Data Data Last Documented VS Vital Signs Date Time Temp Pulse Resp B/P (MAP) Pulse Ox O2 Delivery O2 Flow Rate FiO2 07/08/17 17:33 07/08/17 16:56 90 20 99 07/08/17 14:38 98.2 Orders Orders Electrocardiogram (07/08/17 14:54) Complete Blood Count With Diff (07/08/17 14:54) Comprehensive Metabolic Panel (07/08/17 14:54) Magnesium (Mg) (07/08/17 14:54) Troponin I (07/08/17 14:54) Lipase (07/08/17 14:54) Chest, Single Ap (07/08/17 14:54) Ecg Monitoring (07/08/17 14:54) Iv Access Insert/Monitor (07/08/17 14:54) Oximetry (07/08/17 14:54) Sodium Chloride 0.9% Flush (Ns Flush) (07/08/17 15:00) Sodium Chlor 0.9% 1000 Ml Inj (Ns 1000 M (07/08/17 15:00) Resp Blood Gas Venous (07/08/17 ) Ondansetron Inj (Zofran Inj) (07/08/17 15:00) Urinalysis - C+S If Indicated (07/08/17 14:56) Blood Gas Venous (Vbg) (07/08/17 14:59) Insulin Human Regular Inj (Novolin R Inj (07/08/17 15:45) Ed Discharge Order (07/08/17 17:18) Labs Laboratory Tests Test 07/08/17 15:15 07/08/17 16:05 White Blood Count 6.2 TH/MM3 Red Blood Count 3.72 MIL/MM3 Hemoglobin 10.2 GM/DL Hematocrit 31.9 % Mean Corpuscular Volume 85.9 FL Mean Corpuscular Hemoglobin 27.5 PG Mean Corpuscular Hemoglobin Concent 32.0 % Red Cell Distribution Width 13.2 % Platelet Count 200 TH/MM3 Mean Platelet Volume 8.9 FL Neutrophils (%) (Auto) 67.7 % Lymphocytes (%) (Auto) 24.1 % Monocytes (%) (Auto) 5.8 % Eosinophils (%) (Auto) 1.9 % Basophils (%) (Auto) 0.5 % Neutrophils # (Auto) 4.2 TH/MM3 Lymphocytes # (Auto) 1.5 TH/MM3 Monocytes # (Auto) 0.4 TH/MM3 Eosinophils # (Auto) 0.1 TH/MM3 Basophils # (Auto) 0.0 TH/MM3 CBC Comment DIFF FINAL Differential Comment Blood Gas Puncture Site VEIN Blood Gas Patient Temperature 98.6 Venous Blood pH 7.47 Venous Blood Partial Pressure CO2 32 mmHg Venous Blood Partial Pressure O2 47 mmHg Venous Blood HCO3 23 mmol/L Venous Blood Oxygen Saturation 85 % Venous Blood Oxygen Content 12.8 Vol % Venous Blood Base Excess -0.7 mmol/L Oxygen Delivery Device ROOM AIR Blood Gas Liter Flow 21 L/M Blood Urea Nitrogen 42 MG/DL Creatinine 3.50 MG/DL Random Glucose 341 MG/DL Total Protein 6.3 GM/DL Albumin 3.1 GM/DL Calcium Level 8.2 MG/DL Magnesium Level 2.6 MG/DL Alkaline Phosphatase 92 U/L Aspartate Amino Transf (AST/SGOT) 13 U/L Alanine Aminotransferase (ALT/SGPT) 16 U/L Total Bilirubin 0.3 MG/DL Sodium Level 136 MEQ/L Potassium Level 4.4 MEQ/L Chloride Level 104 MEQ/L Carbon Dioxide Level 21.8 MEQ/L Anion Gap 10 MEQ/L Estimat Glomerular Filtration Rate 20 ML/MIN Troponin I LESS THAN 0.02 NG/ML Lipase 241 U/L Urine Collection Type CLEAN CATCH Urine Color STRAW Urine Turbidity CLEAR Urine pH 7.5 Urine Specific Doran 1.014 Urine Protein 100 mg/dL Urine Glucose (UA) 1000 OR GREATER mg/dL Urine Ketones NEG mg/dL Urine Occult Blood TRACE Urine Nitrite NEG Urine Bilirubin NEG Urine Leukocyte Esterase NEG Urine RBC 0-3 /hpf Urine Squamous Epithelial Cells 0-5 /hpf Urine Amorphous Sediment FEW Microscopic Urinalysis Comment CULT NOT INDICATED Urine Collection Time 1605 MDM Medical Decision Making Medical Screen Exam Complete: Yes Emergency Medical Condition: Yes Differential Diagnosis DKA, hyperglycemia, dehydration, electrolyte abnormality, acute abdomen unlikely , infection unlikely, Narrative Course patient roomed in emergency department, appears well in no obvious distress, he has hyperglycemia without evidence for DKA. Creatinine is elevated appears to be about the patient's baseline given review of his prior creatinines does not represent an acute kidney injury. 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 Is no indication further workup at this time. He appears well on revisit. Stable for discharge. Diagnosis Primary Impression: Hyperglycemia due to type 1 diabetes mellitus Additional Impression: CKD (chronic kidney disease) stage 4, GFR 15-29 ml/min Disposition: 01 DISCHARGE HOME Condition: Stable David Rodriguez MD Jul 08, 2017 16:47
[2017-07-08 16:56] VITALS: BP 119/74; PULSE 90; RESP 20; O2SAT 99
--- NOTE | 2017-07-08 21:19 | EKG ---
Date Performed: 07/08/2017 Time Performed: 15:02:23 PTAGE: 37 years EKG: Sinus rhythm NORMAL ECG PREVIOUS TRACING : 01/31/2017 07.29 No significant change from previous tracing noted. DOCTOR: Hermelindo Joseph Interpretating Date/Time 07/08/2017 21:18:37
== END 2017-07-08 17:38 | disposition home or self-care (01) ==
LOC: PHED 14:24
DX: E10.65 Type 1 diabetes mellitus with hyperglycemia (principal); I12.9 Hypertensive chronic kidney disease with stage 1 through stage 4 chronic kidney disease, or unspecified chronic kidney disease; Z79.01 Long term (current) use of anticoagulants
CPT/HCPCS: 71010; 80053; 81001; 82805; 83690; 83735; 84484; 85025; 93005; 96361; 96374; 96375; 99285; J1815; J2405; J7030

== ENCOUNTER 2017-08-13 10:18 | Observation (INO) | payer MEDICAID ==
[2017-08-13] MEDS: RESP: ALBUTEROL 2.5 MG/IPRATROPIUM 0.5 MG NEB (SCH) INH ×3 (10:55)
[2017-08-13] MEDS: methylPREDNISolone SOD SUCC 125 MG/2 ML VIAL IV PUSH (11:06)
[2017-08-13] MEDS: guaiFENesin SOLUTION 200 MG/10 ML CUP PO (11:06)
[2017-08-13 11:15] LABS: AUTOMATED NEUTROPHIL # 3.2 TH/MM3 (1.8-7.7); BASOPHIL % 0.9 % (0.0-2.0); EOSINOPHIL # 0.1 TH/MM3 (0-0.4); EOSINOPHIL % 1.5 % (0.0-4.0); HEMATOCRIT 28.2 % (39.0-51.0); HEMO FLAGS DIFF FINAL; HEMOGLOBIN 9.2 GM/DL (13.0-17.0); LYMPH % 32.6 % (9.0-44.0); LYMPHOCYTE # 1.7 TH/MM3 (1.0-4.8); MEAN CELL VOLUME 86.9 FL (80.0-100.0); MEAN CORPUSCULAR HEMOGLOBIN 28.4 PG (27.0-34.0); MEAN CORPUSCULAR HGB CONC 32.7 % (32.0-36.0); MEAN PLATELET VOLUME 9.3 FL (7.0-11.0); MONO % 3.6 % (0.0-8.0); MONOCYTE # 0.2 TH/MM3 (0-0.9); NEUT % 61.4 % (16.0-70.0); PLATELET COUNT 145 TH/MM3 (150-450); RED BLOOD COUNT 3.25 MIL/MM3 (4.50-5.90); RED CELL DISTRIBUTION WIDTH 14.1 % (11.6-17.2); WHITE BLOOD COUNT 5.2 TH/MM3 (4.0-11.0)
[2017-08-13 11:20] LABS: CHLORIDE 111 MEQ/L (98-107); POTASSIUM 4.2 MEQ/L (3.5-5.1); SODIUM (NA) 138 MEQ/L (136-145)
[2017-08-13 11:22] LABS: CALCIUM 7.6 MG/DL (8.5-10.1)
[2017-08-13 11:23] LABS: ANION GAP 10 MEQ/L (5-15); BICARBONATE 16.7 MEQ/L (21.0-32.0); BLOOD UREA NITROGEN 50 MG/DL (7-18); GLUCOSE,RANDOM 291 MG/DL (74-106)
[2017-08-13 11:26] LABS: GLOMERULAR FILTRATION RATE 12 ML/MIN (>89)
[2017-08-13] MEDS: SODIUM CHLOR 0.9% 1000 ML INJ 1,000 ML IV ×3 (11:55→22:41)
[2017-08-13] MEDS ORDERED: GLUCAGON 1 MG/ML VIAL OTHER (12:45)
[2017-08-13] MEDS ORDERED: SENNOSIDES 8.6 MG TAB PO (12:45)
[2017-08-13] MEDS ORDERED: BISACODYL 10 MG SUPP RECTAL (12:45)
[2017-08-13] MEDS ORDERED: NALOXONE HCL 0.4 MG/ML AMP IV PUSH (12:45)
[2017-08-13] MEDS ORDERED: DEXTROSE 50% IN WATER 50 ML VIAL(D50) IV PUSH (12:45)
[2017-08-13] MEDS ORDERED: SODIUM CHLORIDE 0.9% FLUSH 10 ML FLUSH IV FLUSH (12:45)
[2017-08-13] MEDS ORDERED: LACTULOSE SYRUP 20 GM/30 ML CUP PO (12:45)
[2017-08-13] MEDS ORDERED: MAGNESIUM HYDROXIDE SUSP 30 ML CUP PO (12:45)
[2017-08-13] MEDS: guaiFENesin E.R. 600 MG TAB PO ×2 (13:30→21:25)
[2017-08-13] MEDS: INSULIN ASPART SUPPLEMENTAL SCALE SQ ×2 (17:00→22:19)
[2017-08-13] MEDS: SODIUM BICARBONATE 325 MG TAB PO (18:00)
[2017-08-13] MEDS: PARICALCITOL 1 MCG CAP PO (21:24)
[2017-08-13] MEDS: TOPIRAMATE 25 MG TAB PO (21:25)
[2017-08-13] MEDS: APIXABAN 5 MG TABLET PO (21:25)
[2017-08-13] MEDS: DOCUSATE SODIUM 50 MG/SENNA 8.6 MG TAB PO (21:25)
[2017-08-13] MEDS: SODIUM CHLORIDE 0.9% FLUSH 10 ML FLUSH IV FLUSH (21:26)
[2017-08-13 23:05] LABS: BILIRUBIN, URINE NEG (NEG); BLOOD, URINE SMALL (NEG); GLUCOSE,URINE NEG (NEG); KETONE, URINE TRACE mg/dL (NEG); NITRITE,URINE POS (NEG); PH, URINE 5.5 (5.0-8.5); URINE LEUKOCYTE ESTERASE NEG (NEG)
[2017-08-13 23:26] LABS: URINE COLOR YELLOW (YELLW/STRAW)
[2017-08-13 23:26] LABS: METHOD OF COLLECTION CLEAN CATCH
[2017-08-13 23:27] LABS: MUCUS URINE FEW /lpf (OCC); SQUAMOUS EPITHELIAL CELL URINE 0-5 /hpf (0-5)
[2017-08-13 23:28] LABS: BACTERIA, URINE MANY /hpf; COMMENT (UR) CULTURE INDICATED; CULTURE IF INDICATED CULTURE INDICATED; RBC, URINE 0-3 /hpf (0-3); WHITE BLOOD CELL CLUMPS RARE
[2017-08-14 06:36] LABS: AUTOMATED NEUTROPHIL # 2.8 TH/MM3 (1.8-7.7); BASOPHIL % 0.3 % (0.0-2.0); EOSINOPHIL % 0.4 % (0.0-4.0); HEMATOCRIT 24.5 % (39.0-51.0); HEMO FLAGS DIFF FINAL; HEMOGLOBIN 8.1 GM/DL (13.0-17.0); LYMPH % 22.6 % (9.0-44.0); LYMPHOCYTE # 0.9 TH/MM3 (1.0-4.8); MEAN CELL VOLUME 89.6 FL (80.0-100.0); MEAN CORPUSCULAR HEMOGLOBIN 29.6 PG (27.0-34.0); MEAN CORPUSCULAR HGB CONC 33.1 % (32.0-36.0); MEAN PLATELET VOLUME 8.2 FL (7.0-11.0); MONO % 9.2 % (0.0-8.0); MONOCYTE # 0.4 TH/MM3 (0-0.9); NEUT % 67.5 % (16.0-70.0); PLATELET COUNT 129 TH/MM3 (150-450); RED BLOOD COUNT 2.74 MIL/MM3 (4.50-5.90); RED CELL DISTRIBUTION WIDTH 14.4 % (11.6-17.2); WHITE BLOOD COUNT 4.1 TH/MM3 (4.0-11.0)
[2017-08-14 06:40] LABS: CHLORIDE 116 MEQ/L (98-107); POTASSIUM 4.7 MEQ/L (3.5-5.1); SODIUM (NA) 142 MEQ/L (136-145)
[2017-08-14 07:14] LABS: ANION GAP 12 MEQ/L (5-15); BICARBONATE 14.2 MEQ/L (21.0-32.0); BLOOD UREA NITROGEN 45 MG/DL (7-18); CALCIUM 7.6 MG/DL (8.5-10.1); GLOMERULAR FILTRATION RATE 16 ML/MIN (>89); GLUCOSE,RANDOM 390 MG/DL (74-106)
[2017-08-14] MEDS: ACETAMINOPHEN 325 MG TAB PO (07:59)
[2017-08-14] MEDS: SERTRALINE HCL 100 MG TAB PO (07:59)
[2017-08-14] MEDS: APIXABAN 5 MG TABLET PO ×2 (08:00→20:45)
[2017-08-14] MEDS: guaiFENesin E.R. 600 MG TAB PO ×2 (08:00→20:45)
[2017-08-14] MEDS: TOPIRAMATE 25 MG TAB PO ×2 (08:00→20:45)
[2017-08-14] MEDS: SODIUM BICARBONATE 325 MG TAB PO ×2 (08:00→17:05)
[2017-08-14] MEDS: ASPIRIN 81 MG CHEW TAB CHEW (08:00)
[2017-08-14] MEDS: INSULIN ASPART SUPPLEMENTAL SCALE SQ ×4 (08:01→20:50)
[2017-08-14] MEDS: SODIUM CHLOR 0.9% 1000 ML INJ 1,000 ML IV ×3 (08:38→23:10)
[2017-08-14] MEDS: DOCUSATE SODIUM 50 MG/SENNA 8.6 MG TAB PO ×2 (09:00→20:45)
[2017-08-14] MEDS: SODIUM CHLORIDE 0.9% FLUSH 10 ML FLUSH IV FLUSH ×2 (09:00→20:46)
[2017-08-14] MEDS: traMADol HCL 50 MG TAB PO ×2 (13:07→20:44)
[2017-08-14 16:20] LABS: HEMOGLOBIN A1C 8.4 % (4.3-6.0); HEMOGLOBIN A1a 1.1 %; HEMOGLOBIN Ao 79.1 %; HEMOGLOBIN F 1.5 %; HEMOGLOBIN LA1C 3.2 %; HEMOGLOBIN P3 5.7 %
[2017-08-14] MEDS: PARICALCITOL 1 MCG CAP PO (20:46)
[2017-08-15] MEDS: INSULIN ASPART SUPPLEMENTAL SCALE SQ ×3 (08:00→17:00)
[2017-08-15] MEDS: ASPIRIN 81 MG CHEW TAB CHEW (08:07)
[2017-08-15] MEDS: guaiFENesin/CODEINE SYRUP 200 MG/20 MG/10 ML CUP PO (08:07)
[2017-08-15] MEDS: DOCUSATE SODIUM 50 MG/SENNA 8.6 MG TAB PO (08:07)
[2017-08-15] MEDS: guaiFENesin E.R. 600 MG TAB PO (08:07)
[2017-08-15] MEDS: SERTRALINE HCL 100 MG TAB PO (08:07)
[2017-08-15] MEDS: SODIUM BICARBONATE 325 MG TAB PO (08:07)
[2017-08-15] MEDS: APIXABAN 5 MG TABLET PO (08:08)
[2017-08-15] MEDS: TOPIRAMATE 25 MG TAB PO (08:08)
[2017-08-15] MEDS: SODIUM CHLORIDE 0.9% FLUSH 10 ML FLUSH IV FLUSH (08:08)
[2017-08-15] MEDS: traMADol HCL 50 MG TAB PO (08:08)
[2017-08-15] MEDS: ONDANSETRON HCL 4 MG/2 ML VIAL IVP (09:00)
[2017-08-15] MEDS ORDERED: NITROFURANTOIN MONOHYD MACROCR 100 MG CAP PO (11:00)
[2017-08-15] MEDS: CEFUROXIME AXETIL 250 MG TAB PO (11:31)
[2017-08-15 11:47] LABS: AUTOMATED NEUTROPHIL # 4.1 TH/MM3 (1.8-7.7); BASOPHIL % 0.4 % (0.0-2.0); EOSINOPHIL # 0.1 TH/MM3 (0-0.4); HEMATOCRIT 25.6 % (39.0-51.0); HEMO FLAGS DIFF FINAL; HEMOGLOBIN 8.3 GM/DL (13.0-17.0); LYMPH % 30.2 % (9.0-44.0); MEAN CELL VOLUME 89.7 FL (80.0-100.0); MEAN CORPUSCULAR HEMOGLOBIN 29.1 PG (27.0-34.0); MEAN CORPUSCULAR HGB CONC 32.4 % (32.0-36.0); MEAN PLATELET VOLUME 7.3 FL (7.0-11.0); MONO % 6.8 % (0.0-8.0); MONOCYTE # 0.4 TH/MM3 (0-0.9); NEUT % 61.6 % (16.0-70.0); PLATELET COUNT 211 TH/MM3 (150-450); RED BLOOD COUNT 2.85 MIL/MM3 (4.50-5.90); RED CELL DISTRIBUTION WIDTH 14.8 % (11.6-17.2); WHITE BLOOD COUNT 6.6 TH/MM3 (4.0-11.0)
[2017-08-15 12:02] LABS: CHLORIDE 120 MEQ/L (98-107); SODIUM (NA) 147 MEQ/L (136-145)
[2017-08-15 12:05] LABS: ANION GAP 8 MEQ/L (5-15); BICARBONATE 19.3 MEQ/L (21.0-32.0); CALCIUM 7.7 MG/DL (8.5-10.1)
[2017-08-15 12:15] LABS: BLOOD UREA NITROGEN 32 MG/DL (7-18); GLOMERULAR FILTRATION RATE 25 ML/MIN (>89); GLUCOSE,RANDOM 116 MG/DL (74-106)
[2017-08-15] MEDS: SODIUM CHLOR 0.9% 1000 ML INJ 1,000 ML IV (14:38)
== END 2017-08-15 18:38 | disposition home or self-care (01) ==
LOC: PHED 10:18 → PHEDA 12:40 → PH3B 13:27
DX: N17.9 Acute kidney failure, unspecified (principal); I12.9 Hypertensive chronic kidney disease with stage 1 through stage 4 chronic kidney disease, or unspecified chronic kidney disease; N18.3 Chronic kidney disease, stage 3 (moderate); R19.7 Diarrhea, unspecified; J40 Bronchitis, not specified as acute or chronic; N39.0 Urinary tract infection, site not specified; B96.20 Unspecified Escherichia coli [E. coli] as the cause of diseases classified elsewhere; R07.9 Chest pain, unspecified; K21.9 Gastro-esophageal reflux disease without esophagitis; E10.22 Type 1 diabetes mellitus with diabetic chronic kidney disease; E10.65 Type 1 diabetes mellitus with hyperglycemia; R56.9 Unspecified convulsions; E86.0 Dehydration; G43.909 Migraine, unspecified, not intractable, without status migrainosus; M41.9 Scoliosis, unspecified; R20.0 Anesthesia of skin; N25.81 Secondary hyperparathyroidism of renal origin; N52.9 Male erectile dysfunction, unspecified; H54.8 Legal blindness, as defined in USA; Z79.01 Long term (current) use of anticoagulants; Z79.4 Long term (current) use of insulin; Z96.41 Presence of insulin pump (external) (internal); Z86.73 Personal history of transient ischemic attack (TIA), and cerebral infarction without residual deficits; E16.2 Hypoglycemia, unspecified; E78.5 Hyperlipidemia, unspecified; Z86.718 Personal history of other venous thrombosis and embolism; M21.372 Foot drop, left foot; G62.9 Polyneuropathy, unspecified; F43.10 Post-traumatic stress disorder, unspecified; F32.9 Major depressive disorder, single episode, unspecified; F41.9 Anxiety disorder, unspecified
CPT/HCPCS: 71046; 76775; 80048; 81001; 82948; 83036; 85025; 87040; 87077; 87086; 87186; 93970; 94640; 94664; 96361; 96372; 96374; 96375; 99285-25

== ENCOUNTER 2017-10-17 13:28 | Emergency (ER) | payer MEDICAID ==
[~2017-10-17] VITALS: Ht 175.3 cm; Wt 77.5 kg
[~2017-10-17 13:28] MED LIST changes: +CEFU1TAB18 PO; -CLIN300C5 PO; -FURO1TAB60 PO; +HUMALOG SQ; -L. A1CAP PO; +guaiFENesin ER PO
[2017-10-17 13:41] VITALS: BP 135/91; PULSE 90; RESP 16; TEMP 98.3; O2SAT 100
[2017-10-17] MEDS ORDERED: SULFAMETHOXAZOLE-TRIMETHOPRIM DS 800-160 MG TAB PO ONE (14:30)
[2017-10-17] MEDS ORDERED: BACT800T5 PO (14:30)
--- NOTE | 2017-10-17 14:39 | PD ---
HPI Chief Complaint: Skin Problem Time Seen by Provider: 14:14 Travel History International Travel<30 days: No Contact w/Intl Traveler<30days: No Traveled to known affect area: No History of Present Illness HPI 37-year-old male that presents to the ED for evaluation of possible infection to his right nostril. Per patient he is not is for the past 2-3 days. Per patient he thought he thought he might just have a pimple and he apply some Bactroban with no improvement. Patient is a diabetic type I. Per patient she had advanced MRSA infection had to be in the hospital for some time after she had a stroke and other medical comorbidities. Per patient he wants to make sure that he is taking care of infection as he does not want to repeat what happened last time. She denies any fevers chills or sweats. He denies any medical issues. He states compliant with his medications and says that his sugars have been under control. No fevers chills or sweats. Only pain and swelling on to the right nostril. Multiple allergies to different medications. History of MRSA. PFSH Past Medical History Hx Anticoagulant Therapy: Yes (ELIQUIS) ADHD: Yes (HX OF) Arthritis: No Asthma: No Autoimmune Disease: No Blood Disorders: No Anxiety: No Depression: Yes Heart Rhythm Problems: No Cancer: No Cardiovascular Problems: Yes (DVT) High Cholesterol: No Chemotherapy: No Chest Pain: No Congestive Heart Failure: No COPD: No Cerebrovascular Accident: Yes (CVA) Diabetes: Yes Diminished Hearing: No Endocrine: Yes Gastrointestinal Disorders: Yes GERD: Yes Glaucoma: No Genitourinary: Yes (SLOW STREAM) Headaches: Yes Hepatitis: No Hiatal Hernia: No Hypertension: Yes Immune Disorder: No Implanted Vascular Access Dvce: No Kidney Stones: No Musculoskeletal: Yes (SCOLIOSIS, RIGHT ULNAR FX., DROP FOOT TO LEFT FOOT) Neurologic: Yes (NEUROPATHY, SEIZURES WITH LOW BLD SUGAR, NUMBNESS TO LEFT HAND ) Psychiatric: Yes (MILD DEPRESSION) Reproductive: Yes (ERECTILE DYSFUNCTION) Respiratory: No Immunizations Current: Yes Migraines: Yes Myocardial Infarction: No Radiation Therapy: No Renal Failure: Yes (STAGE 4) Seizures: No Sickle Cell Disease: No Sleep Apnea: No Thyroid Disease: No Ulcer: Yes (GASTRIC) PNEUMOCCOCAL Vaccine (Year): 3 Past Surgical History Abdominal Surgery: No AICD: No Appendectomy: No Arteriovenous Shunt: No Body Medical Devices: SCREWS IN RIGHT FOOT Cardiac Surgery: No Cholecystectomy: No Ear Surgery: No Endocrine Surgery: No Eye Surgery: Yes (LEFT EYE SURGERY 10/27/2010) Genitourinary Surgery: No Gynecologic Surgery: No Insulin Pump: No Joint Replacement: No Neurologic Surgery: No Oral Surgery: No Pacemaker: No Thoracic Surgery: No Other Surgery: Yes (FISTULA PLACEMENT RIGHT ARM) Social History Alcohol Use: Yes (RARE) Tobacco Use: No (OCCASIONALLY VAPE) Substance Use: No Allergies-Medications (Allergen,Severity, Reaction): Coded Allergies: amoxicillin (Verified Allergy, Severe, Rash, 10/17/17) broccoli (Verified Allergy, Severe, ANAPHYLAXIS, 10/17/17) mushroom (Verified Allergy, Severe, ANAPHYLAXIS, 10/17/17) penicillin G (Verified Allergy, Severe, Hives, 10/17/17) *MDRO Multi-Drug Resistant Organism (Verified Adverse Reaction, Unknown, ) MRSA 06/2014 and 11/2009. MRSA PCR Screen positive 05/21/15. Reported Meds & Prescriptions Reported Meds & Active Scripts Active Bactrim DS (Sulfamethoxazole-Trimethoprim) 800-160 Mg Tab 1 Tab PO BID 14 Days [guaiFENesin ER] 600 MG Tabcr 600 Mg PO BID 10 Days Ceftin (Cefuroxime Axetil) 250 Mg Tab 250 Mg PO Q12HR 14 Days Reported Humalog Inj (Insulin Human Lispro) 1,000 Unit/10 Ml Vial Unknown Dose SQ CONTINUOUS Max dose at bedtime:( )units; sugars< 70,(0)units; sugars 150-199,(1)unit; sugars 200-249,(3)units; sugars 250-299,(5)units; sugars 300-349,(7)units; sugars more than 349,(9)units. [Insulin Pump] Aspirin 81 Low Dose (Aspirin) 81 Mg Chew 81 Mg CHEW DAILY Claritin (Loratadine) 5 Mg Chew 5 Mg CHEW DAILY Sodium Bicarbonate 325 Mg Tab 325 Mg PO BIDPC Sertraline (Sertraline HCl) 100 Mg Tab 100 Mg PO DAILY Eliquis (Apixaban) 5 Mg Tab 5 Mg PO BID Vitamin D3 (Cholecalciferol) 50,000 Unit Cap 50,000 Units PO Q7D Topamax (Topiramate) 50 Mg Tab 50 Mg PO BID Paricalcitol 4 Mcg Cap 4 Mcg PO HS Tramadol (Tramadol HCl) 50 Mg Tab 50 Mg PO Q6H PRN Review of Systems Except as stated in HPI: all other systems reviewed are Neg Physical Exam Narrative GENERAL: SKIN: Warm and dry. HEAD: Atraumatic. Normocephalic. EYES: Pupils equal and round. No scleral icterus. No injection or drainage. ENT: No nasal bleeding or discharge. Mucous membranes pink and moist. Nostrils are patent bilaterally. Patient does have soft tissue swelling to the right neck area as well as appears to be purulence coming from the right upper nare. No obvious abscesses noted however. Soft tissue swelling appears to be mainly to the right side. NECK: Trachea midline. No JVD. CARDIOVASCULAR: Regular rate and rhythm. RESPIRATORY: No accessory muscle use. Clear to auscultation. Breath sounds equal bilaterally. GASTROINTESTINAL: Abdomen soft, non-tender, nondistended. Hepatic and splenic margins not palpable. MUSCULOSKELETAL: Extremities without clubbing, cyanosis, or edema. No obvious deformities. NEUROLOGICAL: Awake and alert. No obvious cranial nerve deficits. Motor grossly within normal limits. Five out of 5 muscle strength in the arms and legs. Normal speech. PSYCHIATRIC: Appropriate mood and affect; insight and judgment normal. Data Data Last Documented VS Vital Signs Date Time Temp Pulse Resp B/P (MAP) Pulse Ox O2 Delivery O2 Flow Rate FiO2 10/17/17 13:41 98.3 90 16 135/91 (106) 100 Orders Orders Sulfamet-Trimeth Ds 800-160 Mg (Bactrim (10/17/17 14:30) Wound Culture And Gram Stain (10/17/17 14:23) Ed Discharge Order (10/17/17 14:31) [facility] Medical Decision Making Medical Screen Exam Complete: Yes Emergency Medical Condition: Yes Medical Record Reviewed: Yes Differential Diagnosis MRSA versus staph infection versus cellulitis versus abscess Narrative Course 37-year-old male that presents to the ED for evaluation of possible infection to his right nostril. Patient was properly examined and was found to have signs and symptoms consistent with appears to be likely cellulitis. Appears to be early. She does have some purulence inside the nostril and a culture was taken of this. Possible pimple forming. From this time recommend trial Bactrim to cover for MRSA and staph. Follow-up with PCP. See ED worsening symptoms. Recheck in 48 hours improvement. Diagnosis Primary Impression: Nose cellulitis Patient Instructions: General Instructions Additional Instructions: Take medication as prescribed. Recheck in 48 hours. See ED for worsening symptoms. Follow with PCP. Med/Other Pt SpecificInfo: Prescription(s) given Scripts Sulfamethoxazole-Trimethoprim (Bactrim DS) 800-160 Mg Tab 1 TAB PO BID for Infection for 14 Days, #28 TAB 0 Refills Prov: Olu Garcia MD 10/17/17 Disposition: 01 DISCHARGE HOME Condition: Stable Logan Brown Oct 17, 2017 14:39
[2017-10-17] MEDS ORDERED: TRAM50TA PO (14:42)
== END 2017-10-17 15:15 | disposition home or self-care (01) ==
LOC: PHEFT 13:28
DX: J34.0 Abscess, furuncle and carbuncle of nose (principal); B95.61 Methicillin susceptible Staphylococcus aureus infection as the cause of diseases classified elsewhere; E10.22 Type 1 diabetes mellitus with diabetic chronic kidney disease; I12.9 Hypertensive chronic kidney disease with stage 1 through stage 4 chronic kidney disease, or unspecified chronic kidney disease; N18.4 Chronic kidney disease, stage 4 (severe); F32.9 Major depressive disorder, single episode, unspecified; Z79.4 Long term (current) use of insulin; Z86.73 Personal history of transient ischemic attack (TIA), and cerebral infarction without residual deficits; Z86.718 Personal history of other venous thrombosis and embolism; Z79.01 Long term (current) use of anticoagulants; Z79.82 Long term (current) use of aspirin; Z16.23 Resistance to quinolones and fluoroquinolones; Z16.29 Resistance to other single specified antibiotic
CPT/HCPCS: 87070; 87205; 99283

== ENCOUNTER 2017-11-01 16:09 | Emergency (ER) | payer MEDICAID ==
[~2017-11-01] VITALS: Ht 175.3 cm; Wt 71.0 kg
[~2017-11-01 16:09] MED LIST changes: +BACT800T5 PO
[2017-11-01 16:14] VITALS: BP 135/81; PULSE 99; RESP 16; TEMP 97.9; O2SAT 100
[2017-11-01] MEDS ORDERED: SODIUM CHLOR 0.9% 1000 ML INJ 1,000 ML IV SCH (16:28)
[2017-11-01] MEDS ORDERED: SODIUM CHLORIDE 0.9% FLUSH 10 ML FLUSH IV FLUSH PRN (16:30)
[2017-11-01] MEDS ORDERED: ONDANSETRON HCL 4 MG/2 ML VIAL IVP ONE (16:30)
--- NOTE | 2017-11-01 16:43 | PD ---
HPI Chief Complaint: GI Complaint Time Seen by Provider: 16:21 Travel History International Travel<30 days: No Contact w/Intl Traveler<30days: No Traveled to known affect area: No History of Present Illness HPI Patient is a 37-year-old male with history of CVA, type 1 diabetes currently with an insulin pump, stage IV chronic kidney disease, migraines, presents to the emergency room with complaints of abdominal pain with nausea and vomiting for the past 2 days. Patient reports that 2 days ago, he began to feel sick, reports that he has not been able to eat or drink anything due to his nausea and vomiting. Patient denies any sick contacts, denies any recent travels or trips. Patient denies any chest pain or shortness of breath. He denies any fever or chills. Reports that his whole abdomen feels uncomfortable - denies history of abdominal surgeries in the past. Patient also reports that he has been vomiting so much, he noticed specks of blood in his vomit today. PFSH Past Medical History Hx Anticoagulant Therapy: Yes ADHD: Yes (HX OF) Arthritis: No Asthma: No Autoimmune Disease: No Blood Disorders: No Anxiety: No Depression: Yes Heart Rhythm Problems: No Cancer: No Cardiovascular Problems: Yes (DVT) High Cholesterol: No Chemotherapy: No Chest Pain: No Congestive Heart Failure: No COPD: No Cerebrovascular Accident: Yes Diabetes: Yes Diminished Hearing: No Endocrine: Yes Gastrointestinal Disorders: Yes GERD: Yes Glaucoma: No Genitourinary: Yes (SLOW STREAM) Headaches: Yes Hepatitis: No Hiatal Hernia: No Hypertension: Yes Immune Disorder: No Implanted Vascular Access Dvce: No Kidney Stones: No Musculoskeletal: Yes (SCOLIOSIS, RIGHT ULNAR FX., DROP FOOT TO LEFT FOOT) Neurologic: Yes (NEUROPATHY, SEIZURES WITH LOW BLD SUGAR, NUMBNESS TO LEFT HAND ) Psychiatric: Yes (MILD DEPRESSION) Reproductive: Yes (ERECTILE DYSFUNCTION) Respiratory: No Immunizations Current: Yes Migraines: Yes Myocardial Infarction: No Radiation Therapy: No Renal Failure: Yes (STAGE 4) Seizures: No Sickle Cell Disease: No Sleep Apnea: No Thyroid Disease: No Ulcer: Yes (GASTRIC) PNEUMOCCOCAL Vaccine (Year): 3 Past Surgical History Abdominal Surgery: No AICD: No Appendectomy: No Arteriovenous Shunt: No Body Medical Devices: SCREWS IN RIGHT FOOT Cardiac Surgery: No Cholecystectomy: No Ear Surgery: No Endocrine Surgery: No Eye Surgery: Yes (LEFT EYE SURGERY 10/27/2010) Genitourinary Surgery: No Gynecologic Surgery: No Insulin Pump: No Joint Replacement: No Neurologic Surgery: No Oral Surgery: No Pacemaker: No Thoracic Surgery: No Other Surgery: Yes (FISTULA PLACEMENT RIGHT ARM) Social History Alcohol Use: Yes (RARE) Tobacco Use: No (OCCASIONALLY VAPE) Substance Use: Yes (MARIJUANA, LAST TIME 2 YEARS AGO) Allergies-Medications (Allergen,Severity, Reaction): Coded Allergies: amoxicillin (Verified Allergy, Severe, Rash, 11/01/17) broccoli (Verified Allergy, Severe, ANAPHYLAXIS, 11/01/17) mushroom (Verified Allergy, Severe, ANAPHYLAXIS, 11/01/17) penicillin G (Verified Allergy, Severe, Hives, 11/01/17) *MDRO Multi-Drug Resistant Organism (Verified Adverse Reaction, Unknown, ) MRSA 06/2014 and 11/2009. MRSA PCR Screen positive 05/21/15. Reported Meds & Prescriptions Reported Meds & Active Scripts Active Tramadol (Tramadol HCl) 50 Mg Tab 50 Mg PO Q6H PRN Bactrim DS (Sulfamethoxazole-Trimethoprim) 800-160 Mg Tab 1 Tab PO BID 14 Days [guaiFENesin ER] 600 MG Tabcr 600 Mg PO BID 10 Days Ceftin (Cefuroxime Axetil) 250 Mg Tab 250 Mg PO Q12HR 14 Days Reported Humalog Inj (Insulin Human Lispro) 1,000 Unit/10 Ml Vial Unknown Dose SQ CONTINUOUS Max dose at bedtime:( )units; sugars< 70,(0)units; sugars 150-199,(1)unit; sugars 200-249,(3)units; sugars 250-299,(5)units; sugars 300-349,(7)units; sugars more than 349,(9)units. [Insulin Pump] Aspirin 81 Low Dose (Aspirin) 81 Mg Chew 81 Mg CHEW DAILY Claritin (Loratadine) 5 Mg Chew 5 Mg CHEW DAILY Sodium Bicarbonate 325 Mg Tab 325 Mg PO BIDPC Sertraline (Sertraline HCl) 100 Mg Tab 100 Mg PO DAILY Eliquis (Apixaban) 5 Mg Tab 5 Mg PO BID Vitamin D3 (Cholecalciferol) 50,000 Unit Cap 50,000 Units PO Q7D Topamax (Topiramate) 50 Mg Tab 50 Mg PO BID Paricalcitol 4 Mcg Cap 4 Mcg PO HS Tramadol (Tramadol HCl) 50 Mg Tab 50 Mg PO Q6H PRN Review of Systems General / Constitutional: No: Fever Eyes: No: Visual changes HENT: No: Headaches Cardiovascular: No: Chest Pain or Discomfort Respiratory: No: Shortness of Breath Gastrointestinal: Positive: Nausea, Vomiting, Abdominal Pain, No: Diarrhea Genitourinary: No: Dysuria Musculoskeletal: No: Pain Skin: No Rash Neurologic: No: Weakness Psychiatric: No: Depression Endocrine: No: Polydipsia Hematologic/Lymphatic: No: Easy Bruising Physical Exam Narrative GENERAL: Moderate distress SKIN: Focused skin assessment warm/dry. HEAD: Atraumatic. Normocephalic. EYES: Pupils equal and round. No scleral icterus. No injection or drainage. ENT: No nasal bleeding or discharge. Mucous membranes pink and moist. NECK: Trachea midline. No JVD. CARDIOVASCULAR: Regular rate and rhythm. No murmur appreciated. RESPIRATORY: No accessory muscle use. Clear to auscultation. Breath sounds equal bilaterally. GASTROINTESTINAL: Abdomen soft, diffusely tender, nondistended. Hepatic and splenic margins not palpable. MUSCULOSKELETAL: No obvious deformities. No clubbing. No cyanosis. No edema. NEUROLOGICAL: Awake and alert. No obvious cranial nerve deficits. Motor grossly within normal limits. Normal speech. PSYCHIATRIC: Appropriate mood and affect; insight and judgment normal. Data Data Last Documented VS Vital Signs Date Time Temp Pulse Resp B/P (MAP) Pulse Ox O2 Delivery O2 Flow Rate FiO2 11/01/17 17:53 78 183/105 (131) 99 11/01/17 16:14 97.9 16 Orders Orders Bedside Glucose AKANKSHA.CSUGAR (11/01/17 16:21) Complete Blood Count With Diff (11/01/17 16:28) Comprehensive Metabolic Panel (11/01/17 16:28) Lipase (11/01/17 16:28) Prothrombin Time / Inr (Pt) (11/01/17 16:28) Act Partial Throm Time (Ptt) (11/01/17 16:28) Urinalysis - C+S If Indicated (11/01/17 16:28) Ct Abd/Pel W/O Iv Contrast (11/01/17 16:28) Iv Access Insert/Monitor (11/01/17 16:28) Ecg Monitoring (11/01/17 16:28) Oximetry (11/01/17 16:28) Ondansetron Inj (Zofran Inj) (11/01/17 16:30) Sodium Chlor 0.9% 1000 Ml Inj (Ns 1000 M (11/01/17 16:28) Sodium Chloride 0.9% Flush (Ns Flush) (11/01/17 16:30) Electrocardiogram (11/01/17 16:28) Chest, Single Ap (11/01/17 16:28) Morphine Inj (Morphine Inj) (11/01/17 18:00) Sodium Chlor 0.9% 1000 Ml Inj (Ns 1000 M (11/01/17 18:15) Dextrose 50% In Sean (Vial) Inj (D50w (Vi (11/01/17 18:45) Diet Heart Healthy (11/01/17 Dinner) Labs Laboratory Tests Test 11/01/17 16:42 11/01/17 17:58 White Blood Count 7.2 TH/MM3 Red Blood Count 4.24 MIL/MM3 Hemoglobin 12.1 GM/DL Hematocrit 36.8 % Mean Corpuscular Volume 86.7 FL Mean Corpuscular Hemoglobin 28.7 PG Mean Corpuscular Hemoglobin Concent 33.1 % Red Cell Distribution Width 13.2 % Platelet Count 265 TH/MM3 Mean Platelet Volume 8.6 FL Neutrophils (%) (Auto) 61.6 % Lymphocytes (%) (Auto) 30.3 % Monocytes (%) (Auto) 5.5 % Eosinophils (%) (Auto) 1.6 % Basophils (%) (Auto) 1.0 % Neutrophils # (Auto) 4.4 TH/MM3 Lymphocytes # (Auto) 2.2 TH/MM3 Monocytes # (Auto) 0.4 TH/MM3 Eosinophils # (Auto) 0.1 TH/MM3 Basophils # (Auto) 0.1 TH/MM3 CBC Comment AUTO DIFF Differential Comment AUTO DIFF CONFIRMED Prothrombin Time 11.0 SEC Prothromb Time International Ratio 1.1 RATIO Activated Partial Thromboplast Time 25.4 SEC Blood Urea Nitrogen 20 MG/DL Creatinine 3.90 MG/DL Random Glucose 53 MG/DL Total Protein 7.0 GM/DL Albumin 3.3 GM/DL Calcium Level 8.7 MG/DL Alkaline Phosphatase 101 U/L Aspartate Amino Transf (AST/SGOT) 25 U/L Alanine Aminotransferase (ALT/SGPT) 22 U/L Total Bilirubin 0.3 MG/DL Sodium Level 141 MEQ/L Potassium Level 3.9 MEQ/L Chloride Level 111 MEQ/L Carbon Dioxide Level 20.3 MEQ/L Anion Gap 10 MEQ/L Estimat Glomerular Filtration Rate 18 ML/MIN Lipase 108 U/L Urine Color YELLOW Urine Turbidity CLEAR Urine pH 6.0 Urine Specific Jewell GREATER/EQUAL 1.030 Urine Protein 300 OR GREATER mg/dL Urine Glucose (UA) 250 mg/dL Urine Ketones NEG mg/dL Urine Occult Blood TRACE Urine Nitrite NEG Urine Bilirubin NEG Urine Urobilinogen 0.2 MG/DL Urine Leukocyte Esterase NEG MDM Medical Decision Making Medical Screen Exam Complete: Yes Emergency Medical Condition: Yes Medical Record Reviewed: Yes Interpretation(s) EKG at 1635: NSR at 91bpm, qt/qtc: 348/397, no acute st or t wave changes Vital Signs Date Time Temp Pulse Resp B/P (MAP) Pulse Ox O2 Delivery O2 Flow Rate FiO2 11/01/17 16:14 97.9 99 16 135/81 (99) 100 Differential Diagnosis gastritis, gastroenteritis, renal failure, electrolyte abnormality, cholecystitis, appendicitis Narrative Course 37-year-old male presents to emergency room with complaints of nausea and vomiting along with abdominal pain for the past 2 days. During the course of the patients emergency department visit, the patients history, examination, and differential diagnosis were reviewed with the patient. The patient was placed on a student affairs dean with oximetry and frequent blood pressure monitoring. The patient had an IV access obtained and blood work sent for analysis. The patient was initially provided IVF, IV zofran The patients laboratory studies were reviewed and remarkable for: CBC & BMP Diagram 11/01/17 16:42 Total Protein 7.0, Albumin 3.3 L, Calcium Level 8.7, Alkaline Phosphatase 101, Aspartate Amino Transf (AST/SGOT) 25, Alanine Aminotransferase (ALT/SGPT) 22, Total Bilirubin 0.3 Radiology studies were reviewed and remarkable for: Last Impressions Chest X-Ray 11/01/171627 Signed Impressions: Service Date/Time: Wednesday, November 01, 2017 16:41 - CONCLUSION: No acute disease. David Lam MD Abdomen/Pelvis CT 11/01/171627 Signed Impressions: Service Date/Time: Wednesday, November 01, 2017 17:16 - CONCLUSION: Distended urinary bladder with diffuse wall thickening. Somewhat prominent prostate gland. Bilateral renal cysts. Mild hepatosplenomegaly. David Lam MD BUN/Cr 20/3.90 which is at baseline for patient given his CKD stage 4, patient does have a new AV fistula in place as he will start dialysis soon CT of the abdomen and pelvis showed a distended urinary bladder with diffuse wall thickening, after patient went to CT scan, he was able to urinate 300 mL's of fluid. UA is currently pending. Patient's blood sugar is 53, patient was given orange juice initially as bs as 56 - repeat was 60 and then he was given gatorade which he tolerated, repeat BS 98. Patient was able to tolerate a meal, he is feeling much better. I reviewed all labs and studies as well as incidental findings with patient, he will return to ER as needed. Diagnosis Primary Impression: Nausea & vomiting Additional Impression: Hypoglycemia Patient Instructions: General Instructions Additional Instructions: Please provide patient with a copy of their lab work and studies at discharge* * Please follow up with your primary care doctor in 2-3 days Return to the ER if symptoms worsen or progress Return to the ER as needed Please monitor your blood sugars while at home as it was found to be low today Med/Other Pt SpecificInfo: Prescription(s) given Scripts Ondansetron (Zofran) 4 Mg Tab 4 MG PO Q6HR Y for NAUSEA OR VOMITING, #20 TAB 0 Refills Prov: Suma Melgar DO 11/01/17 Disposition: 01 DISCHARGE HOME Condition: Stable Suma Melgar DO Nov 01, 2017 16:43
[2017-11-01 16:46] VITALS: O2SAT 90
[2017-11-01 17:01] LABS: AUTOMATED NEUTROPHIL # 4.4 TH/MM3 (1.8-7.7); BASOPHIL # 0.1 TH/MM3 (0-0.2); EOSINOPHIL # 0.1 TH/MM3 (0-0.4); EOSINOPHIL % 1.6 % (0.0-4.0); HEMATOCRIT 36.8 % (39.0-51.0); HEMOGLOBIN 12.1 GM/DL (13.0-17.0); LYMPH % 30.3 % (9.0-44.0); LYMPHOCYTE # 2.2 TH/MM3 (1.0-4.8); MEAN CELL VOLUME 86.7 FL (80.0-100.0); MEAN CORPUSCULAR HEMOGLOBIN 28.7 PG (27.0-34.0); MEAN CORPUSCULAR HGB CONC 33.1 % (32.0-36.0); MEAN PLATELET VOLUME 8.6 FL (7.0-11.0); MONO % 5.5 % (0.0-8.0); MONOCYTE # 0.4 TH/MM3 (0-0.9); NEUT % 61.6 % (16.0-70.0); PLATELET COUNT 265 TH/MM3 (150-450); RED BLOOD COUNT 4.24 MIL/MM3 (4.50-5.90); RED CELL DISTRIBUTION WIDTH 13.2 % (11.6-17.2); WHITE BLOOD COUNT 7.2 TH/MM3 (4.0-11.0)
--- NOTE | 2017-11-01 17:02 | RADRPT ---
EXAM DATE/TIME: 11/01/2017 16:41 [facility] COMPARISON: CHEST SINGLE AP, July 08, 2017, 15:52. INDICATIONS : Short of breath. MEDICAL HISTORY : Hypertension. Gastroesophageal reflux disease. Renal failure, stage 4. Neuropathy. MRSA. Seizures. Nu mbness in left hand. Migraine. Ulcer. SURGICAL HISTORY : Left eye surgery. Fistula placement, right arm. ENCOUNTER: Initial ACUITY: 1 day PAIN SCORE: 0/10 LOCATION: Bilateral chest FINDINGS: A single view of the chest demonstrates the lungs to be symmetrically aerated without evidence of mas s, infiltrate or effusion. The cardiomediastinal contours are unremarkable. Osseous structures are intact. CONCLUSION: No acute disease. David Lam MD on November 01, 2017 at 16:59 Board Certified Radiologist. This report was verified electronically.
[2017-11-01 17:04] LABS: CHLORIDE 111 MEQ/L (98-107); SODIUM (NA) 141 MEQ/L (136-145)
[2017-11-01 17:07] LABS: ALBUMIN 3.3 GM/DL (3.4-5.0); BICARBONATE 20.3 MEQ/L (21.0-32.0); CALCIUM 8.7 MG/DL (8.5-10.1)
[2017-11-01 17:08] LABS: BLOOD UREA NITROGEN 20 MG/DL (7-18); GLUCOSE,RANDOM 53 MG/DL (74-106)
[2017-11-01 17:10] LABS: ALT (GPT) 22 U/L (12-78); AST (GOT) 25 U/L (15-37)
[2017-11-01 17:11] LABS: GLOMERULAR FILTRATION RATE 18 ML/MIN (>89)
[2017-11-01 17:12] LABS: TOTAL BILIRUBIN ADULT 0.3 MG/DL (0.2-1.0)
[2017-11-01 17:13] LABS: ALKALINE PHOSPHATASE 101 U/L (45-117)
[2017-11-01 17:42] LABS: INTERNATIONAL NORMALIZED RATIO 1.1 RATIO
--- NOTE | 2017-11-01 17:44 | RADRPT ---
EXAM DATE/TIME: 11/01/2017 17:16 [facility] COMPARISON: US KIDNEY/RENAL/BLADDER, August 13, 2017, 14:21. US KIDNEY/RENAL/BLADDER, May 20, 2015, 14:19. INDICATIONS : Diffuse abdomen pain with nausea and vomiting for two days. ORAL CONTRAST: No oral contrast ingested. RADIATION DOSE: 4.63 CTDIvol (mGy) MEDICAL HISTORY : Renal failure, chronic. Stroke Deep venous thrombosis.diabetes SURGICAL HISTORY : None. ENCOUNTER: Initial ACUITY: 2 days PAIN SCALE: 7/10 LOCATION: Bilateral abdomen TECHNIQUE: Volumetric scanning of the abdomen and pelvis was performed. Using automated exposure control and ad justment of the mA and/or kV according to patient size, radiation dose was kept as low as reasonably achievable to obtain optimal diagnostic quality images. DICOM format image data is available electro nically for review and comparison. FINDINGS: LOWER LUNGS: The visualized lower lungs are clear. LIVER: Mild hepatomegaly is noted. Homogeneous density without lesion. There is no dilation of the biliary tree. No calcified gallstones. SPLEEN: Mild splenomegaly is noted PANCREAS: Within normal limits. KIDNEYS: Normal in size and shape. Bilateral renal cysts are noted with the largest on the right measuring 2. 6 cm and the largest on the left measuring 2 cm. There is no stone or hydronephrosis. ADRENAL GLANDS: Within normal limits. VASCULAR: There is no aortic aneurysm. BOWEL/MESENTERY: The stomach, small bowel, and colon demonstrate no acute abnormality. There is no free intraperitone al air or fluid. ABDOMINAL WALL: Within normal limits. RETROPERITONEUM: There is no lymphadenopathy. BLADDER: Urinary bladder is distended and its wall is diffusely thickened. REPRODUCTIVE: The prostate gland is somewhat prominent. INGUINAL: There is no lymphadenopathy or hernia. MUSCULOSKELETAL: Within normal limits for patient age. CONCLUSION: Distended urinary bladder with diffuse wall thickening. Somewhat prominent prostate g land. Bilateral renal cysts. Mild hepatosplenomegaly. David Lam MD on November 01, 2017 at 17:35 Board Certified Radiologist. This report was verified electronically.
[2017-11-01 17:53] VITALS: BP 183/105; PULSE 78; O2SAT 99
[2017-11-01] MEDS ORDERED: MORPHINE SULFATE 2 MG/ML SYRINGE IV PUSH ONE (18:00)
[2017-11-01] MEDS ORDERED: SODIUM CHLOR 0.9% 1000 ML INJ 1,000 ML IV ONE (18:15)
[2017-11-01 18:27] LABS: BILIRUBIN, URINE NEG (NEG); BLOOD, URINE TRACE (NEG); GLUCOSE,URINE 250 mg/dL (NEG); KETONE, URINE NEG (NEG); NITRITE,URINE NEG (NEG); URINE COLOR YELLOW (YELLW/STRAW); URINE LEUKOCYTE ESTERASE NEG (NEG)
[2017-11-01] MEDS ORDERED: DEXTROSE 50% IN WATER 50 ML VIAL(D50) IV PUSH ONE (18:45)
[2017-11-01] MEDS ORDERED: ZOFR4TAB PO (19:16)
[2017-11-01 19:18] LABS: RBC, URINE 0-3 /hpf (0-3); SQUAMOUS EPITHELIAL CELL URINE 0-5 /hpf (0-5); WBC, URINE 0-2 /hpf (0-5)
--- NOTE | 2017-11-02 20:50 | EKG ---
Date Performed: 11/01/2017 Time Performed: 16:35:06 PTAGE: 37 years EKG: Sinus rhythm Since the previous tracing, no significant change noted NORMAL ECG PREVIOUS TRACING : 07/08/2017 15.02 DOCTOR: Louis Chao Interpretating Date/Time 11/02/2017 20:48:11
== END 2017-11-01 20:15 | disposition home or self-care (01) ==
LOC: PHED 16:09
DX: R11.2 Nausea with vomiting, unspecified (principal); E10.649 Type 1 diabetes mellitus with hypoglycemia without coma; N28.1 Cyst of kidney, acquired; R16.2 Hepatomegaly with splenomegaly, not elsewhere classified; F90.9 Attention-deficit hyperactivity disorder, unspecified type; I10 Essential (primary) hypertension; K21.9 Gastro-esophageal reflux disease without esophagitis; M41.9 Scoliosis, unspecified; Z86.73 Personal history of transient ischemic attack (TIA), and cerebral infarction without residual deficits
CPT/HCPCS: 71045; 74176; 80053; 81001; 83690; 85025; 85610; 85730; 93005; 96361; 96374; 96375; 99285; J2270; J2405; J7030

== ENCOUNTER 2017-11-05 14:36 | Inpatient (IN) | payer MEDICAID ==
[~2017-11-05] VITALS: Ht 175.3 cm; Wt 70.5 kg
[2017-11-05] VITALS (15 sets, daily range): BP systolic 75–145; BP diastolic 43–64; PULSE 72–101; RESP 12–18; TEMP 98.4–99.6; O2SAT 93–100
[~2017-11-05 14:36] MED LIST changes: +ZOFR4TAB PO
[2017-11-05] MEDS ORDERED: SODIUM CHLOR 0.9% 1000 ML INJ 1,000 ML IV ONE ×6 (15:14→16:00)
[2017-11-05] MEDS ORDERED: INSULIN HUMAN REGULAR 1,000 UNITS/10 ML VIAL IV PUSH ONE ×3 (15:15→16:45)
[2017-11-05] MEDS ORDERED: SODIUM CHLORIDE 0.9% FLUSH 10 ML FLUSH IVF PRN (15:15)
--- NOTE | 2017-11-05 15:26 | PD ---
HPI Chief Complaint: Diabetic Time Seen by Provider: 15:13 Travel History International Travel<30 days: No Contact w/Intl Traveler<30days: No Traveled to known affect area: No History of Present Illness HPI This patient is brought in by paramedics. He is an insulin-dependent diabetic who is on dialysis. He did not take any insulin today. he used to have an insulin pump but it was disconnected because it was malfunctioning. He complains of nausea. He has had diarrhea today. No fever or injury. Symptoms are severe. No alleviating factors. He feels lethargic and weak. His chief complaint is generalized weakness. His sugar is read as critically high on the multineedle shirrer monitor, indicating greater than 550. PFSH Past Medical History Hx Anticoagulant Therapy: Yes ADHD: Yes (HX OF) Arthritis: No Asthma: No Autoimmune Disease: No Blood Disorders: No Anxiety: No Depression: Yes Heart Rhythm Problems: No Cancer: No Cardiovascular Problems: Yes (DVT) High Cholesterol: No Chemotherapy: No Chest Pain: No Congestive Heart Failure: No COPD: No Cerebrovascular Accident: Yes Diabetes: Yes Diminished Hearing: No Endocrine: Yes Gastrointestinal Disorders: Yes GERD: Yes Glaucoma: No Genitourinary: Yes (SLOW STREAM) Headaches: Yes Hepatitis: No Hiatal Hernia: No Hypertension: Yes Immune Disorder: No Implanted Vascular Access Dvce: No Kidney Stones: No Musculoskeletal: Yes (SCOLIOSIS, RIGHT ULNAR FX., DROP FOOT TO LEFT FOOT) Neurologic: Yes (NEUROPATHY, SEIZURES WITH LOW BLD SUGAR, NUMBNESS TO LEFT HAND ) Psychiatric: Yes (MILD DEPRESSION) Reproductive: Yes (ERECTILE DYSFUNCTION) Respiratory: No Immunizations Current: Yes Migraines: Yes Myocardial Infarction: No Radiation Therapy: No Renal Failure: Yes (STAGE 4) Seizures: No Sickle Cell Disease: No Sleep Apnea: No Thyroid Disease: No Ulcer: Yes (GASTRIC) PNEUMOCCOCAL Vaccine (Year): 3 ?: Not Past Surgical History Abdominal Surgery: No AICD: No Appendectomy: No Arteriovenous Shunt: No Body Medical Devices: SCREWS IN RIGHT FOOT Cardiac Surgery: No Cholecystectomy: No Ear Surgery: No Endocrine Surgery: No Eye Surgery: Yes (LEFT EYE SURGERY 10/27/2010) Genitourinary Surgery: No Gynecologic Surgery: No Insulin Pump: No Joint Replacement: No Neurologic Surgery: No Oral Surgery: No Pacemaker: No Thoracic Surgery: No Other Surgery: Yes (FISTULA PLACEMENT RIGHT ARM) Social History Alcohol Use: Yes (RARE) Tobacco Use: No (OCCASIONALLY VAPE) Substance Use: Yes (MARIJUANA, LAST TIME 2 YEARS AGO) Allergies-Medications (Allergen,Severity, Reaction): Coded Allergies: amoxicillin (Verified Allergy, Severe, Rash, 11/01/17) broccoli (Verified Allergy, Severe, ANAPHYLAXIS, 11/01/17) mushroom (Verified Allergy, Severe, ANAPHYLAXIS, 11/01/17) penicillin G (Verified Allergy, Severe, Hives, 11/01/17) *MDRO Multi-Drug Resistant Organism (Verified Adverse Reaction, Unknown, ) MRSA 06/2014 and 11/2009. MRSA PCR Screen positive 05/21/15. Reported Meds & Prescriptions Reported Meds & Active Scripts Active Zofran (Ondansetron HCl) 4 Mg Tab 4 Mg PO Q6HR PRN Tramadol (Tramadol HCl) 50 Mg Tab 50 Mg PO Q6H PRN Bactrim DS (Sulfamethoxazole-Trimethoprim) 800-160 Mg Tab 1 Tab PO BID 14 Days [guaiFENesin ER] 600 MG Tabcr 600 Mg PO BID 10 Days Ceftin (Cefuroxime Axetil) 250 Mg Tab 250 Mg PO Q12HR 14 Days Reported Humalog Inj (Insulin Human Lispro) 1,000 Unit/10 Ml Vial Unknown Dose SQ CONTINUOUS Max dose at bedtime:( )units; sugars< 70,(0)units; sugars 150-199,(1)unit; sugars 200-249,(3)units; sugars 250-299,(5)units; sugars 300-349,(7)units; sugars more than 349,(9)units. [Insulin Pump] Aspirin 81 Low Dose (Aspirin) 81 Mg Chew 81 Mg CHEW DAILY Claritin (Loratadine) 5 Mg Chew 5 Mg CHEW DAILY Sodium Bicarbonate 325 Mg Tab 325 Mg PO BIDPC Sertraline (Sertraline HCl) 100 Mg Tab 100 Mg PO DAILY Eliquis (Apixaban) 5 Mg Tab 5 Mg PO BID Vitamin D3 (Cholecalciferol) 50,000 Unit Cap 50,000 Units PO Q7D Topamax (Topiramate) 50 Mg Tab 50 Mg PO BID Paricalcitol 4 Mcg Cap 4 Mcg PO HS Tramadol (Tramadol HCl) 50 Mg Tab 50 Mg PO Q6H PRN Review of Systems General / Constitutional: No: Fever Eyes: No: Visual changes HENT: No: Headaches Cardiovascular: No: Chest Pain or Discomfort Respiratory: No: Shortness of Breath Gastrointestinal: Positive: Nausea, Diarrhea, No: Abdominal Pain Genitourinary: No: Dysuria Musculoskeletal: Positive: Weakness, No: Pain Skin: No Rash Neurologic: Positive: Weakness Psychiatric: No: Depression Endocrine: No: Polydipsia Hematologic/Lymphatic: No: Easy Bruising Physical Exam Narrative GENERAL: Disheveled and lethargic well-developed patient who is weak and smells of ketones. SKIN: Focused skin assessment reveals no rash and nodules. Skin is Warm and dry. HEAD: Atraumatic. Normocephalic. EYES: Pupil is clouded over on the right. No scleral icterus. No injection or drainage. ENT: No nasal bleeding or discharge. Mucous membranes pink and very dry . NECK: Trachea midline. No JVD. CARDIOVASCULAR: Regular rate and rhythm. No murmur appreciated. RESPIRATORY: No accessory muscle use. Clear to auscultation. Breath sounds equal bilaterally. GASTROINTESTINAL: Abdomen soft, non-tender, nondistended. Hepatic and splenic margins not palpable. Insulin pump is palpable MUSCULOSKELETAL: No obvious deformities. No clubbing. No cyanosis. No edema. Dialysis shunt in his right wrist NEUROLOGICAL: Awake but drowsy. No obvious cranial nerve deficits. Motor grossly within normal limits. Normal speech. PSYCHIATRIC: Appropriate mood and affect; insight and judgment poor . Data Data Last Documented VS Vital Signs Date Time Temp Pulse Resp B/P (MAP) Pulse Ox O2 Delivery O2 Flow Rate FiO2 11/05/17 16:34 72 92/54 (67) 97 11/05/17 15:57 18 11/05/17 14:57 98.4 Orders Orders Complete Blood Count With Diff (11/05/17 15:14) Comprehensive Metabolic Panel (11/05/17 15:14) Beta Hydroxybutyrate (Acetone) (11/05/17 15:14) Urinalysis - C+S If Indicated (11/05/17 15:14) Blood Gas Venous (Vbg) (11/05/17 15:14) Ecg Monitoring (11/05/17 15:14) Iv Access Insert/Monitor (11/05/17 15:14) Oximetry (11/05/17 15:14) NPO (11/05/17 15:14) Sodium Chlor 0.9% 1000 Ml Inj (Ns 1000 M (11/05/17 15:14) Sodium Chlor 0.9% 1000 Ml Inj (Ns 1000 M (11/05/17 15:44) Sodium Chloride 0.9% Flush (Ns Flush) (11/05/17 15:15) Sodium Chlor 0.9% 1000 Ml Inj (Ns 1000 M (11/05/17 15:14) Insulin Human Regular Inj (Novolin R Inj (11/05/17 15:15) C Diff Toxin Pcr (11/05/17 15:33) Sodium Chlor 0.9% 1000 Ml Inj (Ns 1000 M (11/05/17 16:00) Sodium Chlor 0.9% 1000 Ml Inj (Ns 1000 M (11/05/17 16:00) Sodium Chlor 0.9% 1000 Ml Inj (Ns 1000 M (11/05/17 16:00) Political Research Scientist / Telemetry AKANKSHA.Q8H (11/05/17 15:55) ^ Insert Iv (11/05/17 15:55) Diet Npo (11/05/17 Dinner) Basic Metabolic Panel (Bmp) (11/05/17 20:55) Basic Metabolic Panel (Bmp) (11/06/17 02:55) Basic Metabolic Panel (Bmp) (11/06/17 08:55) Basic Metabolic Panel (Bmp) (11/06/17 14:55) Magnesium (Mg) (11/05/17 20:55) Magnesium (Mg) (11/06/17 02:55) Magnesium (Mg) (11/06/17 08:55) Magnesium (Mg) (11/06/17 14:55) Phosphorus (Po4) (11/05/17 20:55) Phosphorus (Po4) (11/06/17 02:55) Phosphorus (Po4) (11/06/17 08:55) Phosphorus (Po4) (11/06/17 14:55) Beta Hydroxybutyrate (Acetone) (11/06/17 02:55) Beta Hydroxybutyrate (Acetone) (11/06/17 14:55) Chest, Single Ap (11/05/17 ) Magnesium (Mg) (11/05/17 15:15) Phosphorus (Po4) (11/05/17 15:15) Insulin Regular (Iv Infusion) (Novolin R (11/05/17 16:30) Potassium, Serum (K) (11/05/17 19:32) Calcium Gluconate Inj (Calcium Gluconate (11/05/17 16:45) Insulin Human Regular Inj (Novolin R Inj (11/05/17 16:45) Sodium Bicarbonate 8.4% Inj (Sodium Bica (11/05/17 16:45) Admit Order (Ed Use Only) (11/05/17 16:41) Political Research Scientist / Telemetry AKANKSHA.Q8H (11/05/17 16:40) ^ Insert Iv (11/05/17 16:40) ^ Teach Patient (11/05/17 16:40) Bedside Glucose AKANKSHA.Q1H (11/05/17 16:40) Sodium Chlor 0.9% 1000 Ml Inj (Ns 1000 M (11/05/17 16:40) Dext 5%-Nacl 0.9% 1000 Ml Inj (D5w-Ns 10 (11/05/17 16:40) Insulin Human Regular Inj (Novolin R Inj (11/05/17 16:45) Insulin Regular (Iv Infusion) (Novolin R (11/05/17 16:45) Potassium Chlor 40 Meq Premix (Kcl 40 Me (11/05/17 16:45) Potassium Chlor 40 Meq Premix (Kcl 40 Me (11/05/17 16:45) Potassium Chlor 20 Meq Premix (Kcl 20 Me (11/05/17 16:45) Potassium Chlor 20 Meq Premix (Kcl 20 Me (11/05/17 16:45) Potassium Chlor 20 Meq Premix (Kcl 20 Me (11/05/17 16:45) Potassium Chlor 20 Meq Premix (Kcl 20 Me (11/05/17 16:45) Potassium Chlor 20 Meq Premix (Kcl 20 Me (11/05/17 16:45) Potassium Chlor 20 Meq Premix (Kcl 20 Me (11/05/17 16:45) Sodium Phosphate Inj (Sodium Phosphate I (11/05/17 16:45) Basic Metabolic Panel (Bmp) (11/05/17 21:40) Basic Metabolic Panel (Bmp) (11/06/17 03:40) Basic Metabolic Panel (Bmp) (11/06/17 09:40) Basic Metabolic Panel (Bmp) (11/06/17 15:40) Magnesium (Mg) (11/05/17 21:40) Magnesium (Mg) (11/06/17 03:40) Magnesium (Mg) (11/06/17 09:40) Magnesium (Mg) (11/06/17 15:40) Phosphorus (Po4) (11/05/17 21:40) Phosphorus (Po4) (11/06/17 03:40) Phosphorus (Po4) (11/06/17 09:40) Phosphorus (Po4) (11/06/17 15:40) Beta Hydroxybutyrate (Acetone) (11/06/17 03:40) Beta Hydroxybutyrate (Acetone) (11/06/17 15:40) ^ Initiate Protocol (11/05/17 16:40) Instruction (11/05/17 16:40) [facility] (11/05/17 16:45) Chlorhexidine 2% Cloth (Chlorhexidine 2% (11/06/17 04:00) Chlorhexidine 2% Cloth (Chlorhexidine 2% (11/05/17 16:45) Mrsa Pcr Surveillance (11/05/17 16:40) Admit To Inpatient (11/05/17 ) Code Status (11/05/17 16:40) Vital Signs (Adult) AKANKSHA.Q1H (11/05/17 16:40) Activity Bed Rest (11/05/17 16:40) Elevate Head Of Bed (11/05/17 16:40) Sodium Chloride 0.9% Flush (Ns Flush) (11/05/17 16:45) Sodium Chloride 0.9% Flush (Ns Flush) (11/05/17 21:00) Acetaminophen (Tylenol) (11/05/17 16:45) Famotidine (Pepcid) (11/05/17 21:00) Ondansetron Inj (Zofran Inj) (11/05/17 16:45) Albuterol-Ipratropium Neb (Duoneb Neb) (11/05/17 16:45) Political Research Scientist / Telemetry AKANKSHA.Q8H (11/05/17 16:40) Heparin Inj (Heparin Inj) (11/05/17 18:00) Scd Bilateral/Knee High AKANKSHA.BID (11/05/17 16:40) Docusate Sodium-Senna (Margarita-Colace) (11/05/17 21:00) Magnesium Hydroxide Liq (Milk Of Magnesi (11/05/17 16:45) Sennosides (Senokot) (11/05/17 16:45) Bisacodyl Supp (Dulcolax Supp) (11/05/17 16:45) Lactulose Liq (Lactulose Liq) (11/05/17 16:45) Inpatient Certification (11/05/17 ) Sodium Bicarbonate 8.4% Inj (Sodium Bica (11/05/17 17:15) Labs Laboratory Tests Test 11/05/17 15:15 11/05/17 15:30 11/05/17 15:40 White Blood Count 19.2 TH/MM3 Red Blood Count 3.37 MIL/MM3 Hemoglobin 10.2 GM/DL Hematocrit 33.0 % Mean Corpuscular Volume 98.2 FL Mean Corpuscular Hemoglobin 30.3 PG Mean Corpuscular Hemoglobin Concent 30.9 % Red Cell Distribution Width 15.0 % Platelet Count 319 TH/MM3 Mean Platelet Volume 10.1 FL Neutrophils (%) (Auto) 86.4 % Lymphocytes (%) (Auto) 6.3 % Monocytes (%) (Auto) 6.9 % Eosinophils (%) (Auto) 0.3 % Basophils (%) (Auto) 0.1 % Neutrophils # (Auto) 16.6 TH/MM3 Lymphocytes # (Auto) 1.2 TH/MM3 Monocytes # (Auto) 1.3 TH/MM3 Eosinophils # (Auto) 0.1 TH/MM3 Basophils # (Auto) 0.0 TH/MM3 CBC Comment DIFF FINAL Differential Comment Blood Urea Nitrogen 57 MG/DL Creatinine 7.30 MG/DL Random Glucose 1544 MG/DL Total Protein 6.1 GM/DL Albumin 3.0 GM/DL Calcium Level 7.6 MG/DL Phosphorus Level 10.9 MG/DL Magnesium Level 2.6 MG/DL Alkaline Phosphatase 189 U/L Aspartate Amino Transf (AST/SGOT) 30 U/L Alanine Aminotransferase (ALT/SGPT) 22 U/L Total Bilirubin 0.3 MG/DL Sodium Level 117 MEQ/L Potassium Level 6.8 MEQ/L Chloride Level 82 MEQ/L Carbon Dioxide Level 4.0 MEQ/L Anion Gap 31 MEQ/L Estimat Glomerular Filtration Rate 9 ML/MIN B-Hydroxybutyrate 10.32 MMOL/L Blood Gas Puncture Site IV Blood Gas Patient Temperature 98.6 Venous Blood pH 6.82 Venous Blood Partial Pressure CO2 20 mmHg Venous Blood Partial Pressure O2 75 mmHg Venous Blood HCO3 3 mmol/L Venous Blood Oxygen Saturation 87 % Venous Blood Oxygen Content 10.8 Vol % Venous Blood Base Excess -27.8 mmol/L Oxygen Delivery Device ROOM AIR Blood Gas Inspired Oxygen 21 % MDM Medical Decision Making Medical Screen Exam Complete: Yes Emergency Medical Condition: Yes Medical Record Reviewed: Yes Differential Diagnosis DKA, hyperglycemia, noncompliance Narrative Course I have reviewed the patient's electronic medical record. He is a frequent visitor. He has been here for diabetic problems before. Patient arrives critically ill in DKA. The nurse placed 2 IVs in the left arm I placed bilateral external jugular IVs for a total of 4 IV sites I gave him 3 L normal saline IV bolus and 12 units IV regular insulin Complete lab studies sent VB shows pH of 6.82 and bicarbonate of 3 Beta hydroxybutyrate is 10.32 CBC results are noted Metabolic profile shows creatinine of 7.3 with BUN of 57 and potassium of 6.8 and bicarbonate of 4 LFTs are normal I gave him 3 more liters of normal saline bolus for a total of 6 L I gave him a total of 3 A of sodium bicarbonate For the potassium elevation I gave him 1 amp of calcium gluconate as well as additional regular insulin I discussed in detail with the wind turbine performance engineer Dr. Rolle. He does not recommend emergent dialysis. He expects the potassium to come down as the DKA is treated I placed a Felipe catheter to help monitor urine output I reviewed in detail with sap analyst Dr. english and also sap analyst Dr. Funes They are working on a bed for emergent transfer to the [facility] ICU Patient is very critical. Patient has been very labor intensive. Many rechecks were necessary. Very complex case. Blood pressure time of dictation 102 systolic with heart rate of 80 Critical Care Narrative Aggregate critical care time was 120 minutes. Time to perform other separately billable procedures was not included in the critical care time. My time did not include minutes spent treating any other patients simultaneously or on activities that did not directly contribute to the patient's treatment. The services I provided to this patient were to treat and/or prevent clinically significant deterioration that could result in: Cardiopulmonary arrest, cardiac arrhythmia, metabolic instability I provided critical care services requiring my management, as noted below: Chart data review, documentation time, medication orders and management, vital sign assessments/reviewing monitor data, ordering and reviewing lab tests, ordering and interpreting/reviewing x-rays and diagnostic studies, care of the patient and discussion of the patient with the admitting physicians. Diagnosis Primary Impression: Diabetic ketoacidosis Qualified Codes: E10.10 - Type 1 diabetes mellitus with ketoacidosis without coma Additional Impressions: Hyperkalemia Acute renal failure Qualified Codes: N17.9 - Acute kidney failure, unspecified Diarrhea in adult patient Admitting Information Admitting Physician Requests: Admit Braxton Yepez MD Nov 05, 2017 15:26
[2017-11-05 15:54] LABS: AUTOMATED NEUTROPHIL # 16.6 TH/MM3 (1.8-7.7); BASOPHIL % 0.1 % (0.0-2.0); EOSINOPHIL # 0.1 TH/MM3 (0-0.4); EOSINOPHIL % 0.3 % (0.0-4.0); HEMOGLOBIN 10.2 GM/DL (13.0-17.0); LYMPH % 6.3 % (9.0-44.0); LYMPHOCYTE # 1.2 TH/MM3 (1.0-4.8); MEAN CELL VOLUME 98.2 FL (80.0-100.0); MEAN CORPUSCULAR HEMOGLOBIN 30.3 PG (27.0-34.0); MEAN CORPUSCULAR HGB CONC 30.9 % (32.0-36.0); MEAN PLATELET VOLUME 10.1 FL (7.0-11.0); MONO % 6.9 % (0.0-8.0); MONOCYTE # 1.3 TH/MM3 (0-0.9); NEUT % 86.4 % (16.0-70.0); PLATELET COUNT 319 TH/MM3 (150-450); RED BLOOD COUNT 3.37 MIL/MM3 (4.50-5.90); WHITE BLOOD COUNT 19.2 TH/MM3 (4.0-11.0)
[2017-11-05] MEDS ORDERED: DEXT 5%-NACL 0.9% 1000 ML INJ 1,000 ML IV SCH ×2 (15:55→16:40)
[2017-11-05] MEDS ORDERED: SODIUM CHLOR 0.9% 1000 ML INJ 1,000 ML IV SCH ×2 (15:55→16:40)
[2017-11-05] MEDS ORDERED: POTASSIUM CHLOR 20 MEQ PREMIX 100 ML IV PRN ×11 (16:00→16:45)
[2017-11-05] MEDS ORDERED: POTASSIUM CHLOR 40 MEQ PREMIX 100 ML IV PRN ×4 (16:00→16:45)
[2017-11-05] MEDS ORDERED: SODIUM BICARBONATE 8.4% SOLN 50 MEQ/50 ML VIAL IV PUSH PRN ×2 (16:00)
[2017-11-05] MEDS ORDERED: INSULIN REGULAR (IV INFUSION) 100 UNITS in SODIUM CHLORIDE 0.9% INJ 99 ML IV PRN ×2 (16:00→16:45)
[2017-11-05] MEDS ORDERED: SODIUM PHOSPHATE INJ 15 MMOL in SODIUM CHLORIDE 0.9% INJ 100 ML IV PRN ×2 (16:00→16:45)
[2017-11-05 16:18] LABS: ALKALINE PHOSPHATASE 189 U/L (45-117); ALT (GPT) 22 U/L (12-78); AST (GOT) 30 U/L (15-37); BLOOD UREA NITROGEN 57 MG/DL (7-18); CALCIUM 7.6 MG/DL (8.5-10.1); GLOMERULAR FILTRATION RATE 9 ML/MIN (>89); MAGNESIUM 2.6 MG/DL (1.5-2.5); TOTAL BILIRUBIN ADULT 0.3 MG/DL (0.2-1.0); TOTAL PROTEIN 6.1 GM/DL (6.4-8.2)
[2017-11-05 16:19] LABS: CHLORIDE 82 MEQ/L (98-107)
[2017-11-05 16:21] LABS: GLUCOSE,RANDOM 1544 MG/DL (74-106); SODIUM (NA) 117 MEQ/L (136-145)
--- NOTE | 2017-11-05 16:33 | RADRPT ---
EXAM DATE/TIME: 11/05/2017 16:07 [place] COMPARISON: CHEST SINGLE AP, November 01, 2017, 16:41. INDICATIONS : Short of breath MEDICAL HISTORY : Renal failure, chronic. Stroke. Deep venous thrombosis. diabetes SURGICAL HISTORY : None. ENCOUNTER: Initial ACUITY: 1 day PAIN SCORE: Non-responsive. LOCATION: Bilateral chest FINDINGS: Lung volumes are symmetrically diminished. There may be mild developing interstitial infiltrate diffu sely. Cardiac contours are grossly stable. CONCLUSION: Decreased lung volumes and possible diffuse developing interstitial infiltrates. Jad Sanchez MD on November 05, 2017 at 16:31 Board Certified Radiologist. This report was verified electronically.
[2017-11-05 16:40] LABS: PHOSPHORUS 10.9 MG/DL (2.5-4.9)
[2017-11-05] MEDS ORDERED: MISCELLANEOUS NURSING INFORMATION XX SCH (16:45)
[2017-11-05] MEDS ORDERED: RESP: ALBUTEROL 2.5 MG/IPRATROPIUM 0.5 MG NEB (PRN) INH (16:45)
[2017-11-05] MEDS ORDERED: SODIUM BICARBONATE 8.4% SOLN 50 MEQ/50 ML VIAL SLOW IVP ONE (16:45)
[2017-11-05] MEDS ORDERED: CALCIUM GLUCONATE 10% 1 GM/10 ML VIAL SLOW IVP ONE (16:45)
[2017-11-05] MEDS ORDERED: BISACODYL 10 MG SUPP RECTAL PRN (16:45)
[2017-11-05] MEDS ORDERED: SODIUM CHLORIDE 0.9% FLUSH 10 ML FLUSH IV FLUSH PRN (16:45)
[2017-11-05] MEDS ORDERED: MAGNESIUM HYDROXIDE SUSP 30 ML CUP PO PRN (16:45)
[2017-11-05] MEDS ORDERED: LACTULOSE SYRUP 20 GM/30 ML CUP PO PRN (16:45)
[2017-11-05] MEDS ORDERED: SENNOSIDES 8.6 MG TAB PO PRN (16:45)
[2017-11-05] MEDS ORDERED: CHLORHEXIDINE GLUCONATE 2 % 1 PACK (2 CLOTHS) TOP PRN (16:45)
[2017-11-05] MEDS: INSULIN REGULAR (IV INFUSION) 100 UNITS in SODIUM CHLORIDE 0.9% INJ 99 ML IV PRN (16:52)
[2017-11-05] MEDS ORDERED: SODIUM BICARBONATE 8.4% INJ 50 MEQ/50 ML SYR IV PUSH ONE (17:15)
[2017-11-05] MEDS ORDERED: NOREPINEPHRINE-DEXTROSE DRIP 250 ML IV PRN (17:30)
[2017-11-05] MEDS ORDERED: TERBUTALINE INJ 1 MG/ML AMP SQ PRN (17:30)
--- NOTE | 2017-11-05 17:37 | HHI.HP ---
[facility] Service Critical Care Medicine Primary Care Physician Brittany Lovelace MD Admission Diagnosis DKA Diagnosis: (1) Severe sepsis Diagnosis: Principal (2) Diabetic ketoacidosis Diagnosis: Principal (3) Leukocytosis Diagnosis: Principal (4) Acute renal failure superimposed on stage 4 chronic kidney disease Diagnosis: Principal (5) Hyperkalemia Diagnosis: Principal (6) Hyponatremia Diagnosis: Principal (7) Diarrhea Diagnosis: Principal (8) Metabolic encephalopathy Diagnosis: Principal Chief Complaint: Hyperglycemia Travel History International Travel<30 Days: No Contact w/Intl Traveler <30 Da: No Traveled to Known Affected Are: No Sepsis Criteria SIRS Criteria (2 or more): Heart rate over 90, WBC > 07325, < 4000 or > 10% bands Sepsis Criteria (SIRS+source): Infect source susp/known Severe Sepsis (+one): Organ Dysfunction History of Present Illness 37 year-old male with rather complex medical history of uncontrolled diabetes, chronic renal failure stage IV, chronic metabolic acidosis, history of CVA, legal blindness, psychiatric history who presented to hospital because of hyperglycemia. The patient does have decreased level consciousness at this time and unable to obtain much information from him. Information taken from medical records. ER documentation indicates that the patient does have insulin- dependent diabetic and on dialysis. Apparently he does have an insulin pump but that is not working at this time. And he did not take his insulin today. Patient had evaluation done by [facility] in his glucose level is greater than 550 so is brought to the emergency department for evaluation. Patient does have multiple episodes of diabetic ketoacidosis dating back to 2001 for uncontrolled diabetes. On this presentation patient is severely ill and without treatment he would surely not survive. He presented with glucose level of 1544, acute renal failure with creatinine 7.3, potassium 6.8. Patient was given IV insulin , calcium gluconate, sodium bicarb in the emergency department and ER physician indicated that he contacted the on-call glass maker to discuss the case with him. Patient did present with shock with blood pressure 96/43. The patient has subsequently undergone infusion of 7 L of IV fluid with only correction of map to 67. The patient does have significant leukocytosis with history of urinary tract infections, MRSA infection, and presently has diarrheal illness. Possible underlying septic shock will need further evaluation. With the patient 's presenting symptoms and findings patient will surely not survive if not admitted to critical care. Patient will be transferred to the main ICU for critical care management, possible emergent dialysis. Review of Systems ROS Limitations: Clinical Condition, Poor Historian Past Family Social History Allergies: Coded Allergies: amoxicillin (Verified Allergy, Severe, Rash, 11/01/17) broccoli (Verified Allergy, Severe, ANAPHYLAXIS, 11/01/17) mushroom (Verified Allergy, Severe, ANAPHYLAXIS, 11/01/17) penicillin G (Verified Allergy, Severe, Hives, 11/01/17) *MDRO Multi-Drug Resistant Organism (Verified Adverse Reaction, Unknown, ) MRSA 06/2014 and 11/2009. MRSA PCR Screen positive 05/21/15. Past Medical History Diabetes, insulin-dependent Chronic kidney disease stage III Hypertension Hyperlipidemia Chronic metabolic acidosis History of DVT in left lower extremity Retinal detachments Scoliosis Erectile dysfunction Left foot drop Peripheral neuropathy History of seizures from hypoglycemia History of CVA Posttraumatic stress disorder Anxiety/depression Past Surgical History AV fistula in right upper extremity Left eye surgery Right foot surgery Reported Medications Reported Meds & Active Scripts Active Zofran (Ondansetron HCl) 4 Mg Tab 4 Mg PO Q6HR PRN Tramadol (Tramadol HCl) 50 Mg Tab 50 Mg PO Q6H PRN Bactrim DS (Sulfamethoxazole-Trimethoprim) 800-160 Mg Tab 1 Tab PO BID 14 Days [guaiFENesin ER] 600 MG Tabcr 600 Mg PO BID 10 Days Ceftin (Cefuroxime Axetil) 250 Mg Tab 250 Mg PO Q12HR 14 Days Reported Humalog Inj (Insulin Human Lispro) 1,000 Unit/10 Ml Vial Unknown Dose SQ CONTINUOUS Max dose at bedtime:( )units; sugars< 70,(0)units; sugars 150-199,(1)unit; sugars 200-249,(3)units; sugars 250-299,(5)units; sugars 300-349,(7)units; sugars more than 349,(9)units. [Insulin Pump] Aspirin 81 Low Dose (Aspirin) 81 Mg Chew 81 Mg CHEW DAILY Claritin (Loratadine) 5 Mg Chew 5 Mg CHEW DAILY Sodium Bicarbonate 325 Mg Tab 325 Mg PO BIDPC Sertraline (Sertraline HCl) 100 Mg Tab 100 Mg PO DAILY Eliquis (Apixaban) 5 Mg Tab 5 Mg PO BID Vitamin D3 (Cholecalciferol) 50,000 Unit Cap 50,000 Units PO Q7D Topamax (Topiramate) 50 Mg Tab 50 Mg PO BID Paricalcitol 4 Mcg Cap 4 Mcg PO HS Tramadol (Tramadol HCl) 50 Mg Tab 50 Mg PO Q6H PRN Family History Reviewed and unremarkable Social History Patient denies any tobacco. Resolved all occasionally. Denies any illicit drug use Physical Exam Vital Signs Vital Signs Date Time Temp Pulse Resp B/P (MAP) Pulse Ox O2 Delivery O2 Flow Rate FiO2 11/05/17 16:34 72 92/54 (67) 97 11/05/17 15:57 84 18 98/49 (65) 93 11/05/17 15:49 96 11/05/17 14:57 98.4 96 18 96/43 (60) 98 Physical Exam GENERAL: Well-developed, well-nourished, in no acute distress. Patient mumbling , difficult to obtain orientation. Patient states that he is in [place]. Unable to get much more information HEENT: Head is normocephalic without any lesions or masses noted. Facial features are symmetric. Eyes: Pupils equal round reactive to light. Extraocular muscles are intact. Conjunctivae were clear. NECK: Supple without any masses. Trachea midline no deviation. No JVD, no bruits are appreciated CARDIAC: Regular rhythm, regular rate. S1/S2 are heard. No murmurs gallops or rubs. LUNGS: Clear to auscultation bilaterally. No wheeze, rhonchi or rales. No use of accessory muscles on inspiration or expiration. ABDOMEN: Soft, nontender. Nondistended. Bowel sounds heard in all 4 quadrants. No organomegaly or masses. Negative rebound, negative guarding EXTREMITIES: No edema, pulses are equal bilaterally. No cyanosis or clubbing NEUROLOGY: Unable to obtain mood and affect Cranial nerves II through XII grossly intact. Patient moving all extremities, speech is slow and mumbled Laboratory Laboratory Tests Test 11/05/17 15:15 11/05/17 15:30 11/05/17 15:40 White Blood Count 19.2 Red Blood Count 3.37 Hemoglobin 10.2 Hematocrit 33.0 Mean Corpuscular Volume 98.2 Mean Corpuscular Hemoglobin 30.3 Mean Corpuscular Hemoglobin Concent 30.9 Red Cell Distribution Width 15.0 Platelet Count 319 Mean Platelet Volume 10.1 Neutrophils (%) (Auto) 86.4 Lymphocytes (%) (Auto) 6.3 Monocytes (%) (Auto) 6.9 Eosinophils (%) (Auto) 0.3 Basophils (%) (Auto) 0.1 Neutrophils # (Auto) 16.6 Lymphocytes # (Auto) 1.2 Monocytes # (Auto) 1.3 Eosinophils # (Auto) 0.1 Basophils # (Auto) 0.0 CBC Comment DIFF FINAL Differential Comment Blood Urea Nitrogen 57 Creatinine 7.30 Random Glucose 1544 Total Protein 6.1 Albumin 3.0 Calcium Level 7.6 Phosphorus Level 10.9 Magnesium Level 2.6 Alkaline Phosphatase 189 Aspartate Amino Transf (AST/SGOT) 30 Alanine Aminotransferase (ALT/SGPT) 22 Total Bilirubin 0.3 Sodium Level 117 Potassium Level 6.8 Chloride Level 82 Carbon Dioxide Level 4.0 Anion Gap 31 Estimat Glomerular Filtration Rate 9 B-Hydroxybutyrate 10.32 Blood Gas Puncture Site IV Blood Gas Patient Temperature 98.6 Venous Blood pH 6.82 Venous Blood Partial Pressure CO2 20 Venous Blood Partial Pressure O2 75 Venous Blood HCO3 3 Venous Blood Oxygen Saturation 87 Venous Blood Oxygen Content 10.8 Venous Blood Base Excess -27.8 Oxygen Delivery Device ROOM AIR Blood Gas Inspired Oxygen 21 Result Diagram: 11/05/17 1515 11/05/17 1515 Imaging Last Impressions Chest X-Ray 11/05/17 0000 Signed Impressions: Service Date/Time: Sunday, November 05, 2017 16:07 - CONCLUSION: Decreased lung volumes and possible diffuse developing interstitial infiltrates. Jad Sanchez MD Septic Shock Reassessment Septic shock perfusion: reassessment completed Caprini VTE Risk Assessment Caprini VTE Risk Assessment: Mod/High Risk (score >= 2) Caprini Risk Assessment Model Point Value = 1 Point Value = 2 Point Value = 3 Point Value = 5 Age 41-60 Minor surgery BMI > 25 kg/m2 Swollen legs Varicose veins or History of unexplained or recurrent spontaneous Oral contraceptives or hormone replacement Sepsis (< 1 month) Serious lung disease, including pneumonia (< 1 month) Abnormal pulmonary function Acute myocardial infarction Congestive heart failure (< 1 month) History of inflammatory bowel disease Medical patient at bed rest Age 61-74 Arthroscopic surgery Major open surgery (> 45 min) Laparoscopic surgery (> 45 min) Malignancy Confined to bed (> 72 hours) Immobilizing plaster cast Central venous access Age >= 75 History of VTE Family history of VTE Factor V Leiden Prothrombin [id number] Lupus anticoagulant Anticardiolipin antibodies Elevated serum homocysteine Heparin-induced thrombocytopenia Other congenital or acquired thrombophilia Stroke (< 1 month) Elective arthroplasty Hip, pelvis, or leg fracture Acute spinal cord injury (< 1 month) Prophylaxis Regimen Total Risk Factor Score Risk Level Prophylaxis Regimen 0-1 Low Early ambulation 2 Moderate Order ONE of the following: *Sequential Compression Device (SCD) *Heparin 5000 units SQ BID 3-4 Higher Order ONE of the following medications: *Heparin 5000 units SQ TID *Enoxaparin/Lovenox 40 mg SQ daily (WT < 150 kg, CrCl > 30 mL/min) *Enoxaparin/Lovenox 30 mg SQ daily (WT < 150 kg, CrCl > 10-29 mL/min) *Enoxaparin/Lovenox 30 mg SQ BID (WT < 150 kg, CrCl > 30 mL/min) AND/OR *Sequential Compression Device (SCD) 5 or more Highest Order ONE of the following medications: *Heparin 5000 units SQ TID (Preferred with Epidurals) *Enoxaparin/Lovenox 40 mg SQ daily (WT < 150 kg, CrCl > 30 mL/min) *Enoxaparin/Lovenox 30 mg SQ daily (WT < 150 kg, CrCl > 10-29 mL/min) *Enoxaparin/Lovenox 30 mg SQ BID (WT < 150 kg, CrCl > 30 mL/min) AND *Sequential Compression Device (SCD) Assessment and Plan Problem List: (1) Severe sepsis ICD Code: A41.9 - Sepsis, unspecified organism; R65.20 - Severe sepsis without septic shock Status: Acute (2) Diabetic ketoacidosis ICD Code: E13.10 - Other specified diabetes mellitus with ketoacidosis without coma Status: Acute (3) Acute renal failure superimposed on stage 4 chronic kidney disease ICD Code: N17.9 - Acute kidney failure, unspecified; N18.4 - Chronic kidney disease, stage 4 (severe) Status: Acute (4) Hyponatremia ICD Code: E87.1 - Hypo-osmolality and hyponatremia Status: Acute (5) Hyperkalemia Status: Acute (6) Leukocytosis ICD Code: D72.829 - Elevated white blood cell count, unspecified Status: Acute (7) Diarrhea in adult patient ICD Code: R19.7 - Diarrhea, unspecified Status: Acute (8) Metabolic encephalopathy ICD Code: G93.41 - Metabolic encephalopathy Assessment and Plan NEUROLOGY Metabolic encephalopathy Continue monitor neurological function per ICU protocol Avoid sedation PULMONOLOGY Clinically stable at this time Patient maintaining airway, no indication at this time for intubation for airway support Continue O2 sat mentation maintain O2 sat greater than 92% Duo nebs every 4 hours as needed for wheeze CARDIOLOGY Hypotension Shock Status post 7 L of IV fluid bolus Continue monitor blood pressure maintain map greater than 65 Possible need to start Levophed for blood pressure management GASTROENTEROLOGY Keep n.p.o. at this time Pepcid for GI protection RENAL Acute renal failure superimposed on chronic kidney disease stage IV Hyper kalemia, severe Hyponatremia, severe Metabolic acidosis from diabetic ketoacidosis with anion gap 31 Hypocalcemia Status post IV insulin, calcium gluconate, sodium bicarb Continue IV fluids ER physician did discuss with glass maker on-call Possible need for emergent dialysis if patient is not improved with correction of diabetic ketoacidosis INFECTIOUS DISEASE Diarrhea illness History of MRSA Leukocytosis Obtain urinalysis, blood cultures Check lactic acid level Awaiting stool studies Special C contact isolation until stool studies are finalized then will need contact isolation HEMATOLOGY History of DVT Patient is on Eliquis in the outpatient setting, will resume when patient more alert Continue monitor hemoglobin hematocrit and transfuse if hemoglobin below 7.0 ENDOCRINOLOGY Diabetic ketoacidosis Patient be admitted to ICU with IV insulin protocol Obtain hemoglobin A1c PROPHYLAXIS DVT prevention with subcutaneous heparin GI protection with Pepcid LINES Peripheral IV CODE STATUS Full code I have examined patient, evaluated laboratory and imaging data, and discussed management with Jonny Damico. I have examined patient upon arrival to [facility] [place] [place]. He is lethargic but will arouse and follow commands. He is protecting his airway. He is K[place]maul breathing with breath sounds that are equal bilaterally. His bladder is distended. The nurses at [facility] emergency department and the [facility] [place] [place] nurses in charge nurse have all been unsuccessful at placing a Felipe or coude catheter. I called Dr. Hunt emergently due to obstructive renal failure and he came and dilated urethral stricture and placed urinary catheter. Glucose corrected sodium went from 145 to 155. Potassium corrected to 4.4 which was expected as acidemia improved. Still severely volume depleted and hypotensive, on levophed but weaning. Changed to LR @ 200/hr. UOP adequate. WBC 19 and in view of hypotension, empirically covering with aztreonam (PCN allergy), Vanc x1 dose and Flagyl pending culture data. C diff has been ordered due to diarrhea present on admission. Following serial labs and addressing electrolytes as indicated. Discussed with Dr. Rolle. Critical care time 60 minutes excluding procedures Problem Qualifiers (1) Diabetic ketoacidosis: Qualified Codes: E10.10 - Type 1 diabetes mellitus with ketoacidosis without coma Braxton Damico Nov 05, 2017 17:37 Bobbi Young MD Nov 06, 2017 09:44
[2017-11-05] MEDS ORDERED: VANCOMYCIN INJ 1,400 MG in SODIUM CHLORID 0.9% 500 ML INJ 500 ML IV ONE (19:00)
[2017-11-05] MEDS: AZTREONAM INJ 500 MG in SODIUM CHLORIDE 0.9% INJ 100 ML IV SCH (20:00)
[2017-11-05 20:21] LABS: BICARBONATE 7.2 MEQ/L (21.0-32.0); CALCIUM 6.5 MG/DL (8.5-10.1); CREATININE 6.75 MG/DL (0.60-1.30); MAGNESIUM 2.1 MG/DL (1.5-2.5); PHOSPHORUS 8.3 MG/DL (2.5-4.9)
--- NOTE | 2017-11-05 20:39 | PD.CONS ---
HPI Service Nephrology Consult Requested By Reason for Consult Acute on chronic kidney disease, hyperkalemia, DKA Primary Care Physician Er Physician History of Present Illness This is a patient who is 37 years of age, presented to the [facility] with altered level of consciousness, profound hyperglycemia and DKA. He is acutely ill, and is not in a position to provide a detailed history. He was noted to have blood glucose of more than 1400, serum potassium of 6.8, serum Na of 117 ( pseudohyponatremia), and severely depressed bicarbonate. He reports that he fell sick yesterday when he developed vomiting. He appears to have stage IV CKD. Has had an AVF placed in the right arm(never used, not ready for use). He is s/p CVA, blindness in the right eye, diabetic retinopathy. He had received about 7 liters of IVF, but has been unable to empty bladder. Attempts at bladder catheterization have failed so far. I discussed this with vendor management specialist. Review of Systems Constitutional: COMPLAINS OF: Diaphoretic episodes, Fatigue Gastrointestinal: COMPLAINS OF: Abdominal pain, Nausea, Vomiting, DENIES: Black stools Past Family Social History Allergies: Coded Allergies: amoxicillin (Verified Allergy, Severe, Rash, 11/01/17) broccoli (Verified Allergy, Severe, ANAPHYLAXIS, 11/01/17) mushroom (Verified Allergy, Severe, ANAPHYLAXIS, 11/01/17) penicillin G (Verified Allergy, Severe, Hives, 11/01/17) *MDRO Multi-Drug Resistant Organism (Verified Adverse Reaction, Unknown, ) MRSA 06/2014 and 11/2009. MRSA PCR Screen positive 05/21/15. Past Medical History Diabetes, insulin-dependent Chronic kidney disease stage III to IV Hypertension Hyperlipidemia Chronic metabolic acidosis History of DVT in left lower extremity Retinal detachments Scoliosis Erectile dysfunction Left foot drop Peripheral neuropathy History of seizures from hypoglycemia History of CVA Posttraumatic stress disorder Anxiety/depression Past Surgical History Past Surgical History AV fistula in right upper extremity Left eye surgery Right foot surgery Reported Medications Zofran (Ondansetron HCl) 4 Mg Tab 4 Mg PO Q6HR PRN Tramadol (Tramadol HCl) 50 Mg Tab 50 Mg PO Q6H PRN Bactrim DS (Sulfamethoxazole-Trimethoprim) 800-160 Mg Tab 1 Tab PO BID 14 Days [guaiFENesin ER] 600 MG Tabcr 600 Mg PO BID 10 Days Ceftin (Cefuroxime Axetil) 250 Mg Tab 250 Mg PO Q12HR 14 Days Reported Humalog Inj (Insulin Human Lispro) 1,000 Unit/10 Ml Vial Unknown Dose SQ CONTINUOUS Max dose at bedtime:( )units; sugars< 70,(0)units; sugars 150-199,(1)unit; sugars 200-249,(3)units; sugars 250-299,(5)units; sugars 300-349,(7)units; sugars more than 349,(9)units. [Insulin Pump] Aspirin 81 Low Dose (Aspirin) 81 Mg Chew 81 Mg CHEW DAILY Claritin (Loratadine) 5 Mg Chew 5 Mg CHEW DAILY Sodium Bicarbonate 325 Mg Tab 325 Mg PO BIDPC Sertraline (Sertraline HCl) 100 Mg Tab 100 Mg PO DAILY Eliquis (Apixaban) 5 Mg Tab 5 Mg PO BID Vitamin D3 (Cholecalciferol) 50,000 Unit Cap 50,000 Units PO Q7D Topamax (Topiramate) 50 Mg Tab 50 Mg PO BID Paricalcitol 4 Mcg Cap 4 Mcg PO HS Tramadol (Tramadol HCl) 50 Mg Tab 50 Mg PO Q6H PRN Active Ordered Medications Current Medications Medications (Trade) Dose Ordered Sig/Josette Route Start Time Stop Time Status Last Admin (NS Flush) 2 ml UNSCH PRN IVF 11/05/17 15:15 Insulin Human Regular 100 units/ Sodium Chloride 100 ml @ 7.1 mls/hr TITRATE PRN IV 11/05/17 16:30 11/05/17 16:52 Sodium Chloride 1,000 ml @ 250 mls/hr Q4H IV 11/05/17 16:40 11/05/17 17:15 Potassium Chloride 100 ml @ 100 mls/hr Q1H PRN IV 11/05/17 16:45 Potassium Chloride 100 ml @ 50 mls/hr Q2H PRN IV 11/05/17 16:45 Potassium Chloride 100 ml @ 100 mls/hr Q1H PRN IV 11/05/17 16:45 Potassium Chloride 100 ml @ 50 mls/hr Q2H PRN IV 11/05/17 16:45 Potassium Chloride 100 ml @ 50 mls/hr Q2H PRN IV 11/05/17 16:45 Potassium Chloride 100 ml @ 50 mls/hr Q2H PRN IV 11/05/17 16:45 Potassium Chloride 100 ml @ 50 mls/hr Q2H PRN IV 11/05/17 16:45 Sodium Phosphate 15 mmol/Sodium Chloride 105 ml @ 25 mls/hr UNSCH PRN IV 11/05/17 16:45 Miscellaneous Information 1 Q361D XX 11/05/17 16:45 (Chlorhexidine 2% Cloth) 3 pack Taper DAILY@04 TOP 11/06/17 04:00 11/02/18 03:59 (Chlorhexidine 2% Cloth) 3 pack UNSCH PRN TOP 11/05/17 16:45 (NS Flush) 2 ml UNSCH PRN IV FLUSH 11/05/17 16:45 (NS Flush) 2 ml BID IV FLUSH 11/05/17 21:00 (Tylenol) 650 mg Q6H PRN PO 11/05/17 16:45 (Pepcid) 20 mg Q12HR PO 11/05/17 21:00 (Zofran Inj) 4 mg Q6H PRN IV PUSH 11/05/17 16:45 (Duoneb Neb) 1 ampule Q4HR NEB PRN INH 11/05/17 16:45 (Heparin Inj) 5,000 units Q12H SQ 11/05/17 18:00 (Margarita-Colace) 1 tab BID PO 11/05/17 21:00 (Milk Of Magnesia Liq) 30 ml Q12H PRN PO 11/05/17 16:45 (Senokot) 17.2 mg Q12H PRN PO 11/05/17 16:45 (Dulcolax Supp) 10 mg DAILY PRN RECTAL 11/05/17 16:45 (Lactulose Liq) 30 ml DAILY PRN PO 11/05/17 16:45 Norepinephrine Bitartrate 250 ml @ 18.75 mls/ hr TITRATE PRN IV 11/05/17 17:30 11/05/17 17:45 (Brethine Inj) 1 mg UNSCH PRN SQ 11/05/17 17:30 Metronidazole 100 ml @ 100 mls/hr Q8H IV 11/05/17 19:00 Aztreonam 500 mg/ Sodium Chloride 100 ml @ 200 mls/hr Q8H IV 11/05/17 20:00 Vancomycin HCl 1400 mg/Sodium Chloride 514 ml @ 250 mls/hr ONCE ONCE IV 11/05/17 19:00 11/05/17 21:03 Family History unavailable at this time. Social History No smoking tobacco Occasional ETOH Denies other illicit drugs Physical Exam Vital Signs Vital Signs Date Time Temp Pulse Resp B/P (MAP) Pulse Ox O2 Delivery O2 Flow Rate FiO2 11/05/17 19:59 95 121/50 11/05/17 19:47 99.6 95 16 104/54 (71) 100 11/05/17 19:20 11/05/17 18:49 101 18 132/59 (83) 100 Room Air 11/05/17 18:10 145/61 (89) 11/05/17 18:10 96 145/61 11/05/17 18:00 120/64 (82) 11/05/17 17:45 84 77/50 11/05/17 17:36 87 18 77/50 (59) 97 11/05/17 17:16 86 75/50 (58) 97 11/05/17 17:11 87 102/58 (73) 98 11/05/17 16:34 72 92/54 (67) 97 11/05/17 15:57 84 18 98/49 (65) 93 11/05/17 15:49 96 11/05/17 14:57 98.4 96 18 96/43 (60) 98 Physical Exam GENERAL: confused, delirious, somewhat agitated SKIN: Warm and dry. HEAD: Normocephalic. EYES: No scleral icterus. No injection or drainage. NECK: Supple, trachea midline. No JVD or lymphadenopathy. CARDIOVASCULAR:Tachycardic. RESPIRATORY: Breath sounds equal bilaterally. No accessory muscle use. GASTROINTESTINAL: Abdomen soft, distended urinary bladder is palpable. MUSCULOSKELETAL: No cyanosis, or edema. Laboratory Laboratory Tests Test 11/05/17 15:15 11/05/17 15:30 11/05/17 15:40 11/05/17 19:35 White Blood Count 19.2 Red Blood Count 3.37 Hemoglobin 10.2 Hematocrit 33.0 Mean Corpuscular Volume 98.2 Mean Corpuscular Hemoglobin 30.3 Mean Corpuscular Hemoglobin Concent 30.9 Red Cell Distribution Width 15.0 Platelet Count 319 Mean Platelet Volume 10.1 Neutrophils (%) (Auto) 86.4 Lymphocytes (%) (Auto) 6.3 Monocytes (%) (Auto) 6.9 Eosinophils (%) (Auto) 0.3 Basophils (%) (Auto) 0.1 Neutrophils # (Auto) 16.6 Lymphocytes # (Auto) 1.2 Monocytes # (Auto) 1.3 Eosinophils # (Auto) 0.1 Basophils # (Auto) 0.0 CBC Comment DIFF FINAL Differential Comment Blood Urea Nitrogen 57 Creatinine 7.30 Random Glucose 1544 Total Protein 6.1 Albumin 3.0 Calcium Level 7.6 Phosphorus Level 10.9 Magnesium Level 2.6 Alkaline Phosphatase 189 Aspartate Amino Transf (AST/SGOT) 30 Alanine Aminotransferase (ALT/SGPT) 22 Total Bilirubin 0.3 Sodium Level 117 Potassium Level 6.8 Chloride Level 82 Carbon Dioxide Level 4.0 Anion Gap 31 Estimat Glomerular Filtration Rate 9 B-Hydroxybutyrate 10.32 Blood Gas Puncture Site IV Blood Gas Patient Temperature 98.6 Venous Blood pH 6.82 Venous Blood Partial Pressure CO2 20 Venous Blood Partial Pressure O2 75 Venous Blood HCO3 3 Venous Blood Oxygen Saturation 87 Venous Blood Oxygen Content 10.8 Venous Blood Base Excess -27.8 Oxygen Delivery Device ROOM AIR Blood Gas Inspired Oxygen 21 Result Diagram: 11/05/17 1515 11/05/17 1515 Assessment and Plan Problem List: (1) Acute renal failure superimposed on stage 4 chronic kidney disease ICD Codes: N17.9 - Acute kidney failure, unspecified; N18.4 - Chronic kidney disease, stage 4 (severe) Status: Acute Plan: There are several issues here: Obviously he is in DKA and resulting intravascular volume depletion could contribute to azotemia. In addition, he appears to be septic, in septic shock, which could cause ATN. In addition, he may have developed (and ongoing as Felipe could not be placed) urinary retention. Finally he appears to have been taking Bactrim which can cause hyperkalemia due to Trimethoprim inhibiting tubular secretion. Plan Continue insulin drip, treat DKA. Fluid resuscitation Antibiotics. It is imperative that his bladder is decompressed: if bladder catheterization is not possible, he may need urology evaluation: discussed with the vendor management specialist. It remains to be seen how much improvement in renal function we will witness. His creatinine was about 2.9 in July of this year. If renal function does not improve significantly, he will need dialysis. Underlying CKD is likely due to diabetic nephropathy, although curiously UA in July revealed no proteinuria(proteinuria was present in previous urine analyses). (2) Hyperkalemia Status: Acute Plan: due to reduced renal excretion, acidosis, and perhaps Bactrim. Continue to treat DKA, place bladder catheter. Suspend offending agents. Dialysis if no improvement. Repeat labs, monitor. (3) Severe sepsis ICD Codes: A41.9 - Sepsis, unspecified organism; R65.20 - Severe sepsis without septic shock Status: Acute Plan: He has received broad spectrum antibiotics. Apparently has tendency for recurrent UTI. (4) Metabolic encephalopathy ICD Codes: G93.41 - Metabolic encephalopathy Plan: patient with LARS, DKA Supportive care. Manage underlying conditions. Monitor. (5) Diabetic ketoacidosis ICD Codes: E13.10 - Other specified diabetes mellitus with ketoacidosis without coma Status: Acute Plan: Insulin drip, follow protocol. Assessment and Plan Prognosis is very much guarded. He is at risk for multiple complications, morbidity and mortality. Thanks for the consult. Problem Qualifiers (1) Diabetic ketoacidosis: Qualified Codes: E10.10 - Type 1 diabetes mellitus with ketoacidosis without coma Olman Rolle MD Nov 05, 2017 20:39
--- NOTE | 2017-11-05 20:58 | PD.CONS ---
HPI Service Urology Consult Requested By Reason for Consult Difficult kapoor, urinary retention Primary Care Physician Er Physician Diagnosis: (1) Severe sepsis ICD Code: A41.9 - Sepsis, unspecified organism; R65.20 - Severe sepsis without septic shock (2) Diabetic ketoacidosis ICD Code: E13.10 - Other specified diabetes mellitus with ketoacidosis without coma (3) Leukocytosis ICD Code: D72.829 - Elevated white blood cell count, unspecified (4) Acute renal failure superimposed on stage 4 chronic kidney disease ICD Code: N17.9 - Acute kidney failure, unspecified; N18.4 - Chronic kidney disease, stage 4 (severe) (5) Hyperkalemia (6) Hyponatremia ICD Code: E87.1 - Hypo-osmolality and hyponatremia (7) Diarrhea (8) Metabolic encephalopathy ICD Code: G93.41 - Metabolic encephalopathy History of Present Illness 37yo male admitted due to diabetic ketoacidosis with history of CKD IV, CVA, blindness now with urinary retention and difficult kapoor placement. Patient has progressively decreased level of consciousness and found to have glucose above 500s and recheck upon arrival was higher still. Creatinine 7.3 and K of 6.8. Patient appeared to be in shock and was admitted to the ICU. Multiple attempts by the nursing staff for kapoor catheter placement was unsuccessful. No known urological history. Patient is not awake and alert for further information. All history obtained from chart and staff. Review of Systems ROS Limitations: Clinical Condition Constitutional: COMPLAINS OF: Chills Eyes: COMPLAINS OF: Vision loss Ears, nose, mouth, throat: DENIES: Hearing loss Respiratory: DENIES: Cough Cardiovascular: DENIES: Chest pain Gastrointestinal: COMPLAINS OF: Abdominal pain Genitourinary: DENIES: Hematuria, Dysuria Musculoskeletal: COMPLAINS OF: Back pain Neurologic: DENIES: Headache Psychiatric: COMPLAINS OF: Confusion, Agitation Except as stated in HPI: all other systems reviewed are Neg Past Family Social History Past Medical History Diabetes, insulin-dependent Chronic kidney disease stage III Hypertension Hyperlipidemia Chronic metabolic acidosis History of DVT in left lower extremity Retinal detachments Scoliosis Erectile dysfunction Left foot drop Peripheral neuropathy History of seizures from hypoglycemia History of CVA Posttraumatic stress disorder Anxiety/depression Past Surgical History AV fistula in right upper extremity Left eye surgery Right foot surgery Reported Medications Reported Meds & Active Scripts Active Zofran (Ondansetron HCl) 4 Mg Tab 4 Mg PO Q6HR PRN Tramadol (Tramadol HCl) 50 Mg Tab 50 Mg PO Q6H PRN Bactrim DS (Sulfamethoxazole-Trimethoprim) 800-160 Mg Tab 1 Tab PO BID 14 Days [guaiFENesin ER] 600 MG Tabcr 600 Mg PO BID 10 Days Ceftin (Cefuroxime Axetil) 250 Mg Tab 250 Mg PO Q12HR 14 Days Reported Humalog Inj (Insulin Human Lispro) 1,000 Unit/10 Ml Vial Unknown Dose SQ CONTINUOUS Max dose at bedtime:( )units; sugars< 70,(0)units; sugars 150-199,(1)unit; sugars 200-249,(3)units; sugars 250-299,(5)units; sugars 300-349,(7)units; sugars more than 349,(9)units. [Insulin Pump] Aspirin 81 Low Dose (Aspirin) 81 Mg Chew 81 Mg CHEW DAILY Claritin (Loratadine) 5 Mg Chew 5 Mg CHEW DAILY Sodium Bicarbonate 325 Mg Tab 325 Mg PO BIDPC Sertraline (Sertraline HCl) 100 Mg Tab 100 Mg PO DAILY Eliquis (Apixaban) 5 Mg Tab 5 Mg PO BID Vitamin D3 (Cholecalciferol) 50,000 Unit Cap 50,000 Units PO Q7D Topamax (Topiramate) 50 Mg Tab 50 Mg PO BID Paricalcitol 4 Mcg Cap 4 Mcg PO HS Tramadol (Tramadol HCl) 50 Mg Tab 50 Mg PO Q6H PRN Current Medications Medications (Trade) Dose Ordered Sig/Josette Route Start Time Stop Time Status Last Admin (NS Flush) 2 ml UNSCH PRN IVF 11/05/17 15:15 Insulin Human Regular 100 units/ Sodium Chloride 100 ml @ 7.1 mls/hr TITRATE PRN IV 11/05/17 16:30 11/05/17 16:52 Sodium Chloride 1,000 ml @ 250 mls/hr Q4H IV 11/05/17 16:40 11/05/17 17:15 Potassium Chloride 100 ml @ 100 mls/hr Q1H PRN IV 11/05/17 16:45 Potassium Chloride 100 ml @ 50 mls/hr Q2H PRN IV 11/05/17 16:45 Potassium Chloride 100 ml @ 100 mls/hr Q1H PRN IV 11/05/17 16:45 Potassium Chloride 100 ml @ 50 mls/hr Q2H PRN IV 11/05/17 16:45 Potassium Chloride 100 ml @ 50 mls/hr Q2H PRN IV 11/05/17 16:45 Potassium Chloride 100 ml @ 50 mls/hr Q2H PRN IV 11/05/17 16:45 Potassium Chloride 100 ml @ 50 mls/hr Q2H PRN IV 11/05/17 16:45 Sodium Phosphate 15 mmol/Sodium Chloride 105 ml @ 25 mls/hr UNSCH PRN IV 11/05/17 16:45 Miscellaneous Information 1 Q361D XX 11/05/17 16:45 (Chlorhexidine 2% Cloth) 3 pack Taper DAILY@04 TOP 11/06/17 04:00 11/02/18 03:59 (Chlorhexidine 2% Cloth) 3 pack UNSCH PRN TOP 11/05/17 16:45 (NS Flush) 2 ml UNSCH PRN IV FLUSH 11/05/17 16:45 (NS Flush) 2 ml BID IV FLUSH 11/05/17 21:00 (Tylenol) 650 mg Q6H PRN PO 11/05/17 16:45 (Pepcid) 20 mg Q12HR PO 11/05/17 21:00 (Zofran Inj) 4 mg Q6H PRN IV PUSH 11/05/17 16:45 (Duoneb Neb) 1 ampule Q4HR NEB PRN INH 11/05/17 16:45 (Heparin Inj) 5,000 units Q12H SQ 11/05/17 18:00 (Margarita-Colace) 1 tab BID PO 11/05/17 21:00 (Milk Of Magnesia Liq) 30 ml Q12H PRN PO 11/05/17 16:45 (Senokot) 17.2 mg Q12H PRN PO 11/05/17 16:45 (Dulcolax Supp) 10 mg DAILY PRN RECTAL 11/05/17 16:45 (Lactulose Liq) 30 ml DAILY PRN PO 11/05/17 16:45 Norepinephrine Bitartrate 250 ml @ 18.75 mls/ hr TITRATE PRN IV 11/05/17 17:30 11/05/17 17:45 (Brethine Inj) 1 mg UNSCH PRN SQ 11/05/17 17:30 Metronidazole 100 ml @ 100 mls/hr Q8H IV 11/05/17 19:00 Aztreonam 500 mg/ Sodium Chloride 100 ml @ 200 mls/hr Q8H IV 11/05/17 20:00 Vancomycin HCl 1400 mg/Sodium Chloride 514 ml @ 250 mls/hr ONCE ONCE IV 11/05/17 19:00 11/05/17 21:03 Allergies: Coded Allergies: amoxicillin (Verified Allergy, Severe, Rash, 11/01/17) broccoli (Verified Allergy, Severe, ANAPHYLAXIS, 11/01/17) mushroom (Verified Allergy, Severe, ANAPHYLAXIS, 11/01/17) penicillin G (Verified Allergy, Severe, Hives, 11/01/17) *MDRO Multi-Drug Resistant Organism (Verified Adverse Reaction, Unknown, ) MRSA 06/2014 and 11/2009. MRSA PCR Screen positive 05/21/15. Active Ordered Medications Current Medications Medications (Trade) Dose Ordered Sig/Josette Route Start Time Stop Time Status Last Admin (NS Flush) 2 ml UNSCH PRN IVF 11/05/17 15:15 Insulin Human Regular 100 units/ Sodium Chloride 100 ml @ 7.1 mls/hr TITRATE PRN IV 11/05/17 16:30 11/05/17 16:52 Sodium Chloride 1,000 ml @ 250 mls/hr Q4H IV 11/05/17 16:40 11/05/17 17:15 Potassium Chloride 100 ml @ 100 mls/hr Q1H PRN IV 11/05/17 16:45 Potassium Chloride 100 ml @ 50 mls/hr Q2H PRN IV 11/05/17 16:45 Potassium Chloride 100 ml @ 100 mls/hr Q1H PRN IV 11/05/17 16:45 Potassium Chloride 100 ml @ 50 mls/hr Q2H PRN IV 11/05/17 16:45 Potassium Chloride 100 ml @ 50 mls/hr Q2H PRN IV 11/05/17 16:45 Potassium Chloride 100 ml @ 50 mls/hr Q2H PRN IV 11/05/17 16:45 Potassium Chloride 100 ml @ 50 mls/hr Q2H PRN IV 11/05/17 16:45 Sodium Phosphate 15 mmol/Sodium Chloride 105 ml @ 25 mls/hr UNSCH PRN IV 11/05/17 16:45 Miscellaneous Information 1 Q361D XX 11/05/17 16:45 (Chlorhexidine 2% Cloth) 3 pack Taper DAILY@04 TOP 11/06/17 04:00 11/02/18 03:59 (Chlorhexidine 2% Cloth) 3 pack UNSCH PRN TOP 11/05/17 16:45 (NS Flush) 2 ml UNSCH PRN IV FLUSH 11/05/17 16:45 (NS Flush) 2 ml BID IV FLUSH 11/05/17 21:00 (Tylenol) 650 mg Q6H PRN PO 11/05/17 16:45 (Pepcid) 20 mg Q12HR PO 11/05/17 21:00 (Zofran Inj) 4 mg Q6H PRN IV PUSH 11/05/17 16:45 (Duoneb Neb) 1 ampule Q4HR NEB PRN INH 11/05/17 16:45 (Heparin Inj) 5,000 units Q12H SQ 11/05/17 18:00 (Margarita-Colace) 1 tab BID PO 11/05/17 21:00 (Milk Of Magnesia Liq) 30 ml Q12H PRN PO 11/05/17 16:45 (Senokot) 17.2 mg Q12H PRN PO 11/05/17 16:45 (Dulcolax Supp) 10 mg DAILY PRN RECTAL 11/05/17 16:45 (Lactulose Liq) 30 ml DAILY PRN PO 11/05/17 16:45 Norepinephrine Bitartrate 250 ml @ 18.75 mls/ hr TITRATE PRN IV 11/05/17 17:30 11/05/17 17:45 (Brethine Inj) 1 mg UNSCH PRN SQ 11/05/17 17:30 Metronidazole 100 ml @ 100 mls/hr Q8H IV 11/05/17 19:00 Aztreonam 500 mg/ Sodium Chloride 100 ml @ 200 mls/hr Q8H IV 11/05/17 20:00 Vancomycin HCl 1400 mg/Sodium Chloride 514 ml @ 250 mls/hr ONCE ONCE IV 11/05/17 19:00 11/05/17 21:03 Family History Family history reviewed and noncontributory to present illness Social History No history of tobacco or illicit drug use Physical Exam Vital Signs Date Time Temp Pulse Resp B/P (MAP) Pulse Ox O2 Delivery O2 Flow Rate FiO2 11/05/17 19:59 95 121/50 11/05/17 19:47 99.6 95 16 104/54 (71) 100 11/05/17 19:20 11/05/17 18:49 101 18 132/59 (83) 100 Room Air 11/05/17 18:10 145/61 (89) 11/05/17 18:10 96 145/61 11/05/17 18:00 120/64 (82) 11/05/17 17:45 84 77/50 11/05/17 17:36 87 18 77/50 (59) 97 11/05/17 17:16 86 75/50 (58) 97 11/05/17 17:11 87 102/58 (73) 98 11/05/17 16:34 72 92/54 (67) 97 11/05/17 15:57 84 18 98/49 (65) 93 11/05/17 15:49 96 11/05/17 14:57 98.4 96 18 96/43 (60) 98 Physical Exam GENERAL: This is a well-nourished, well-developed patient SKIN: No rashes, ecchymoses or lesions. Cool and dry. HEAD: Atraumatic. Normocephalic. ENT: Nose without bleeding, purulent drainage. Airway patent. NECK: Trachea midline. No JVD or lymphadenopathy CARDIOVASCULAR: Tachycardic RESPIRATORY: nonlabored GASTROINTESTINAL: Abdomen soft, non-tender, nondistended. GENITOURINARY: Circumcised phallus, condom cath in place, no urine output MUSCULOSKELETAL: Extremities without clubbing, cyanosis, or edema. NEUROLOGICAL: awake however not appropriate responses Lab results reviewed: Yes Laboratory Tests Test 11/05/17 15:15 11/05/17 15:30 11/05/17 15:40 11/05/17 19:35 White Blood Count 19.2 Red Blood Count 3.37 Hemoglobin 10.2 Hematocrit 33.0 Mean Corpuscular Volume 98.2 Mean Corpuscular Hemoglobin 30.3 Mean Corpuscular Hemoglobin Concent 30.9 Red Cell Distribution Width 15.0 Platelet Count 319 Mean Platelet Volume 10.1 Neutrophils (%) (Auto) 86.4 Lymphocytes (%) (Auto) 6.3 Monocytes (%) (Auto) 6.9 Eosinophils (%) (Auto) 0.3 Basophils (%) (Auto) 0.1 Neutrophils # (Auto) 16.6 Lymphocytes # (Auto) 1.2 Monocytes # (Auto) 1.3 Eosinophils # (Auto) 0.1 Basophils # (Auto) 0.0 CBC Comment DIFF FINAL Differential Comment Blood Urea Nitrogen 57 52 Creatinine 7.30 6.75 Random Glucose 1544 Total Protein 6.1 Albumin 3.0 Calcium Level 7.6 6.5 Phosphorus Level 10.9 8.3 Magnesium Level 2.6 2.1 Alkaline Phosphatase 189 Aspartate Amino Transf (AST/SGOT) 30 Alanine Aminotransferase (ALT/SGPT) 22 Total Bilirubin 0.3 Sodium Level 117 132 Potassium Level 6.8 4.4 Chloride Level 82 101 Carbon Dioxide Level 4.0 7.2 Anion Gap 31 24 Estimat Glomerular Filtration Rate 9 9 B-Hydroxybutyrate 10.32 Blood Gas Puncture Site IV Blood Gas Patient Temperature 98.6 Venous Blood pH 6.82 Venous Blood Partial Pressure CO2 20 Venous Blood Partial Pressure O2 75 Venous Blood HCO3 3 Venous Blood Oxygen Saturation 87 Venous Blood Oxygen Content 10.8 Venous Blood Base Excess -27.8 Oxygen Delivery Device ROOM AIR Blood Gas Inspired Oxygen 21 Test 11/05/17 20:12 Date/Time Source Procedure Growth Status 11/05/17 20:12 Blood Peripheral Aerobic Blood Culture Pending Received 11/05/17 20:12 Blood Peripheral Anaerobic Blood Culture Pending Received Result Diagram: 11/05/17 1515 11/05/17 1935 Personally reviewed images: Yes Imaging Last Impressions Chest X-Ray 11/05/17 0000 Signed Impressions: Service Date/Time: Sunday, November 05, 2017 16:07 - CONCLUSION: Decreased lung volumes and possible diffuse developing interstitial infiltrates. Jad Sanchez MD Assessment and Plan Problem List: (1) Urinary retention ICD Code: R33.9 - Retention of urine, unspecified (2) LARS (acute kidney injury) ICD Code: N17.9 - Acute kidney failure, unspecified Status: Acute (3) Hyperglycemia due to type 1 diabetes mellitus ICD Code: E10.65 - Type 1 diabetes mellitus with hyperglycemia Status: Acute (4) CKD (chronic kidney disease) stage 4, GFR 15-29 ml/min ICD Code: N18.4 - Chronic kidney disease, stage 4 (severe) Status: Acute (5) Acute renal failure superimposed on stage 3 chronic kidney disease ICD Code: N17.9 - Acute kidney failure, unspecified; N18.3 - Chronic kidney disease, stage 3 (moderate) (6) Severe sepsis ICD Code: A41.9 - Sepsis, unspecified organism; R65.20 - Severe sepsis without septic shock Status: Acute (7) Hyperkalemia Status: Acute (8) Diabetic ketoacidosis ICD Code: E13.10 - Other specified diabetes mellitus with ketoacidosis without coma Status: Acute Assessment and Plan -Stenosis 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 If unable to void, may replace catheter as the stenosis has been dilated successfully -Patient may follwo-up with Urology after hospitalization. Please call with questions Problem Qualifiers (1) Diabetic ketoacidosis: Qualified Codes: E10.10 - Type 1 diabetes mellitus with ketoacidosis without coma Kevin Hunt MD Nov 05, 2017 20:58
[2017-11-05] MEDS: SODIUM CHLORIDE 0.9% FLUSH 10 ML FLUSH IV FLUSH SCH (21:00)
[2017-11-05] MEDS ORDERED: FAMOTIDINE 20 MG/2 ML VIAL IV PUSH SCH (21:00)
[2017-11-05] MEDS: FAMOTIDINE 20 MG TAB PO SCH (21:00)
[2017-11-05] MEDS: DOCUSATE SODIUM 50 MG/SENNA 8.6 MG TAB PO SCH (21:00)
[2017-11-05 21:13] LABS: CALCIUM-PROTEIN CORRECTED 7.5 MG/DL (8.5-10.1)
[2017-11-05] MEDS: LACTATED RINGER'S 1000 ML INJ 1,000 ML IV SCH (21:30)
[2017-11-05] MEDS: POTASSIUM CHLOR 20 MEQ PREMIX 100 ML IV PRN (21:51)
[2017-11-06] VITALS (15 sets, daily range): BP systolic 105–163; BP diastolic 56–78; PULSE 91–109; RESP 14–33; TEMP 98–99.6; O2SAT 98–100
[2017-11-06] MEDS: POTASSIUM CHLOR 20 MEQ PREMIX 100 ML IV PRN ×3 (00:02→12:11)
[2017-11-06] MEDS: LACTATED RINGER'S 1000 ML INJ 1,000 ML IV SCH ×3 (02:30→22:49)
[2017-11-06] MEDS: metroNIDAZOLE 500 MG INJ 100 ML IV SCH ×3 (03:16→18:26)
[2017-11-06 03:46] LABS: BICARBONATE 13.1 MEQ/L (21.0-32.0); CALCIUM 6.5 MG/DL (8.5-10.1); CREATININE 7.16 MG/DL (0.60-1.30); MAGNESIUM 1.9 MG/DL (1.5-2.5); PHOSPHORUS 4.6 MG/DL (2.5-4.9)
[2017-11-06 03:58] LABS: TOTAL PROTEIN 5.3 GM/DL (6.4-8.2)
[2017-11-06 04:00] LABS: CALCIUM-PROTEIN CORRECTED 7.4 MG/DL (8.5-10.1)
[2017-11-06] MEDS: AZTREONAM INJ 500 MG in SODIUM CHLORIDE 0.9% INJ 100 ML IV SCH ×3 (04:00→21:21)
[2017-11-06] MEDS: CHLORHEXIDINE GLUCONATE 2 % 1 PACK (2 CLOTHS) TOP SCH (04:00)
[2017-11-06] MEDS: HEPARIN SODIUM - SQ 10,000 UNITS/ML VIAL SQ SCH ×2 (04:43→17:37)
[2017-11-06] MEDS: INSULIN REGULAR (IV INFUSION) 100 UNITS in SODIUM CHLORIDE 0.9% INJ 99 ML IV PRN (05:52)
[2017-11-06] MEDS ORDERED: CALCIUM GLUCONATE INJ 2 GM in SODIUM CHLORIDE 0.9% INJ 100 ML IV ONE (06:00)
[2017-11-06] MEDS ORDERED: ALPRAZolam 0.5 MG TAB PO ONE (07:15)
--- NOTE | 2017-11-06 09:10 | HHI.NPPN ---
Subjective Interval History patient was seen and examined. Urology had to place urethral catheter after dilatation of urethral stricture. He has had about 1000 ml of urine so far. Creatinine has not improved. Hyperkalemia has resolved. Patient is shaking, thinks that his renal function is worse because he "did not take meds for several days". On RL at 200 ml/hour. On insulin drip. Objective Data Data 11/06/17 11/07/17 19:00 07:00 Intake Total 100 ml Balance 100 ml Intake IV Total 100 ml Vital Signs Date Time Temp Pulse Resp B/P (MAP) Pulse Ox O2 Delivery O2 Flow Rate FiO2 11/06/17 06:00 96 11/06/17 04:00 99 11/06/17 03:00 99.2 109 33 163/78 (106) 98 11/06/17 02:00 96 11/06/17 00:00 96 11/05/17 23:00 99.1 97 12 124/59 (80) 99 11/05/17 22:00 92 11/05/17 20:15 100 Nasal Cannula 4.00 11/05/17 20:00 95 11/05/17 19:59 95 121/50 11/05/17 19:47 99.6 95 16 104/54 (71) 100 11/05/17 19:20 11/05/17 18:49 101 18 132/59 (83) 100 Room Air 11/05/17 18:10 145/61 (89) 11/05/17 18:10 96 145/61 11/05/17 18:00 120/64 (82) 11/05/17 17:45 84 77/50 11/05/17 17:36 87 18 77/50 (59) 97 11/05/17 17:16 86 75/50 (58) 97 11/05/17 17:11 87 102/58 (73) 98 11/05/17 16:34 72 92/54 (67) 97 11/05/17 15:57 84 18 98/49 (65) 93 11/05/17 15:49 96 11/05/17 14:57 98.4 96 18 96/43 (60) 98 -: 11/05/17 1515 11/06/17 0550 Microbiology 11/05/17 Aerobic Blood Culture, Received Pending 11/05/17 Anaerobic Blood Culture, Received Pending 11/05/17 Aerobic Blood Culture, Received Pending 11/05/17 Anaerobic Blood Culture, Received Pending Physical Exam General Appearance: Well Developed, No Acute Distress Pulmonary Resp Exam: Clear Bilaterally Cardiology CV Exam: Regular, Normal Sinus Rhythm Gastrointestinal/Abdomen GI Exam: Soft, Non-Tender, Bowel Sounds Present Musculoskeletal MS Exam: Joints Intact Extremeties Extremities Exam: Trace Edema Neurologic Neuro Exam: Moving All Extremities Assessment/Plan Problem List: (1) Acute renal failure superimposed on stage 4 chronic kidney disease ICD Codes: N17.9 - Acute kidney failure, unspecified; N18.4 - Chronic kidney disease, stage 4 (severe) Status: Acute Plan: He was in DKA with resulting intravascular volume depletion. In addition, he appears to be septic, in septic shock, which could cause ATN. Had developed urinary retention for which he had catheter placed by Urology. Finally he appears to have been taking Bactrim which can cause hyperkalemia due to Trimethoprim inhibiting tubular secretion. Continue insulin drip, treat DKA. Reduce IVF. Antibiotics. It remains to be seen how much improvement in renal function we will witness. His creatinine was about 2.9 in July of this year. If renal function does not improve significantly in the next 24 hours, he will need dialysis. Discussed with Dr. Angela. Underlying CKD is likely due to diabetic nephropathy, although curiously UA in July revealed no proteinuria(proteinuria was present in previous urine analyses). (2) Hyperkalemia Status: Acute Plan: due to reduced renal excretion, acidosis, and perhaps Bactrim. Continue to treat DKA, place bladder catheter. Suspend offending agents. Improved. (3) Severe sepsis ICD Codes: A41.9 - Sepsis, unspecified organism; R65.20 - Severe sepsis without septic shock Status: Acute Plan: He has received broad spectrum antibiotics. Apparently has tendency for recurrent UTI. (4) Metabolic encephalopathy ICD Codes: G93.41 - Metabolic encephalopathy Plan: patient with LARS, DKA Supportive care. Manage underlying conditions. Monitor. (5) Diabetic ketoacidosis ICD Codes: E13.10 - Other specified diabetes mellitus with ketoacidosis without coma Status: Acute Plan: Insulin drip, follow protocol. Plan Prognosis is guarded. Problem Qualifiers (1) Diabetic ketoacidosis: Qualified Codes: E10.10 - Type 1 diabetes mellitus with ketoacidosis without coma Olman Rolle MD Nov 06, 2017 09:10
[2017-11-06] MEDS: SERTRALINE HCL 100 MG TAB PO SCH (09:50)
[2017-11-06] MEDS: TOPIRAMATE 25 MG TAB PO SCH ×2 (09:50→21:22)
[2017-11-06] MEDS: SODIUM CHLORIDE 0.9% FLUSH 10 ML FLUSH IV FLUSH SCH ×2 (09:50→21:21)
[2017-11-06] MEDS: FAMOTIDINE 20 MG TAB PO SCH (09:50)
[2017-11-06] MEDS: DOCUSATE SODIUM 50 MG/SENNA 8.6 MG TAB PO SCH ×2 (09:50→21:00)
--- NOTE | 2017-11-06 10:37 | EKG ---
Date Performed: 11/05/2017 Time Performed: 16:29:19 PTAGE: 37 years EKG: Sinus rhythm MODERATE ST DEPRESSION ABNORMAL ECG Since the PREVIOUS TRACING , no significant change noted PREVIOUS TRACIN11/01/2017 16.35 DOCTOR: David Villavicencio Interpretating Date/Time 11/06/2017 10:33:59
[2017-11-06 11:08] LABS: BICARBONATE 17.1 MEQ/L (21.0-32.0); CALCIUM 7.3 MG/DL (8.5-10.1); CREATININE 7.15 MG/DL (0.60-1.30); MAGNESIUM 1.9 MG/DL (1.5-2.5); PHOSPHORUS 3.8 MG/DL (2.5-4.9)
[2017-11-06 11:19] LABS: CALCIUM-PROTEIN CORRECTED 8.7 MG/DL (8.5-10.1); TOTAL PROTEIN 4.7 GM/DL (6.4-8.2)
[2017-11-06] MEDS ORDERED: DC Insulin drip 2 hrs post basal insulin dose ONE (13:30)
[2017-11-06] MEDS ORDERED: DC previous DKA orders (HMC 1917) ONE (13:30)
[2017-11-06] MEDS ORDERED: GLUCAGON 1 MG/ML VIAL OTHER PRN (13:30)
[2017-11-06 14:15] LABS: AUTOMATED NEUTROPHIL # 10.4 TH/MM3 (1.8-7.7); BASOPHIL % 0.2 % (0.0-2.0); EOSINOPHIL % 0.3 % (0.0-4.0); HEMATOCRIT 24.5 % (39.0-51.0); HEMOGLOBIN 8.4 GM/DL (13.0-17.0); LYMPH % 11.4 % (9.0-44.0); LYMPHOCYTE # 1.5 TH/MM3 (1.0-4.8); MEAN CELL VOLUME 85.6 FL (80.0-100.0); MEAN CORPUSCULAR HEMOGLOBIN 29.5 PG (27.0-34.0); MEAN CORPUSCULAR HGB CONC 34.4 % (32.0-36.0); MEAN PLATELET VOLUME 8.5 FL (7.0-11.0); MONO % 8.5 % (0.0-8.0); MONOCYTE # 1.1 TH/MM3 (0-0.9); NEUT % 79.6 % (16.0-70.0); PLATELET COUNT 193 TH/MM3 (150-450); RED BLOOD COUNT 2.86 MIL/MM3 (4.50-5.90); WHITE BLOOD COUNT 13.1 TH/MM3 (4.0-11.0)
[2017-11-06 14:35] LABS: BICARBONATE 17.4 MEQ/L (21.0-32.0); CALCIUM 7.3 MG/DL (8.5-10.1); MAGNESIUM 1.8 MG/DL (1.5-2.5)
[2017-11-06 14:41] LABS: CREATININE 6.93 MG/DL (0.60-1.30); PHOSPHORUS 3.9 MG/DL (2.5-4.9)
[2017-11-06 14:57] LABS: CALCIUM-PROTEIN CORRECTED 8.7 MG/DL (8.5-10.1); TOTAL PROTEIN 4.7 GM/DL (6.4-8.2)
[2017-11-06] MEDS: INSULIN DETEMIR 100 UNITS/ML VIAL SQ SCH (16:27)
--- NOTE | 2017-11-06 17:39 | HHI.CCPN ---
Subjective Remarks/Hospital Course 37 year-old male with rather complex medical history of uncontrolled diabetes, chronic renal failure stage IV, chronic metabolic acidosis, history of CVA, legal blindness, psychiatric history who presented to hospital because of hyperglycemia. The patient does have decreased level consciousness at this time and unable to obtain much information from him. Information taken from medical records. ER documentation indicates that the patient does have insulin- dependent diabetic and on dialysis. Apparently he does have an insulin pump but that is not working at this time. And he did not take his insulin today. Patient had evaluation done by [facility] in his glucose level is greater than 550 so is brought to the emergency department for evaluation. Patient does have multiple episodes of diabetic ketoacidosis dating back to 2001 for uncontrolled diabetes. On this presentation patient is severely ill and without treatment he would surely not survive. He presented with glucose level of 1544, acute renal failure with creatinine 7.3, potassium 6.8. Patient was given IV insulin , calcium gluconate, sodium bicarb in the emergency department and ER physician indicated that he contacted the on-call land degradation analyst to discuss the case with him. Patient did present with shock with blood pressure 96/43. The patient has subsequently undergone infusion of 7 L of IV fluid with only correction of map to 67. The patient does have significant leukocytosis with history of urinary tract infections, MRSA infection, and presently has diarrheal illness. Possible underlying septic shock will need further evaluation. With the patient 's presenting symptoms and findings patient will surely not survive if not admitted to critical care. Patient will be transferred to the main ICU for critical care management, possible emergent dialysis. Subjective: 11/06: Afebrile . Anion gap closed. The patient transitioned to SQ Levemir insulin twice daily. Patient tolerating diet. Patient's anticonvulsant Topamax and antianxiety Zoloft medications reinitiated. Patient alert responsive, mild tremors noted. Patient states this is his baseline. Creatinine significantly elevated discussed with Dr. Collins possibility of initiation of dialysis in a.m.. Objective Vital Signs Date Time Temp Pulse Resp B/P (MAP) Pulse Ox O2 Delivery O2 Flow Rate FiO2 11/06/17 16:00 95 11/06/17 12:00 98.0 14 116/63 (80) 100 11/05/17 20:15 Nasal Cannula 4.00 Intake and Output 11/06/17 11/06/1718 08:00 16:00 00:00 Intake Total 1500 ml Output Total 1175 ml Balance 325 ml Result Diagram: 11/06/17 1345 11/06/17 1349 Imaging Last Impressions Chest X-Ray 11/05/17 0000 Signed Impressions: Service Date/Time: Sunday, November 05, 2017 16:07 - CONCLUSION: Decreased lung volumes and possible diffuse developing interstitial infiltrates. Jad Sanchez MD Objective Remarks GENERAL: Well-developed, well-nourished, in no acute distress. Patient mumbling , difficult to obtain orientation. Patient states that he is in [place]. Unable to get much more information HEENT: Head is normocephalic without any lesions or masses noted. Facial features are symmetric. Eyes: Pupils equal round reactive to light. Extraocular muscles are intact. Conjunctivae were clear. NECK: Supple without any masses. Trachea midline no deviation. No JVD, no bruits are appreciated CARDIAC: Regular rhythm, regular rate. S1/S2 are heard. No murmurs gallops or rubs. LUNGS: Clear to auscultation bilaterally. No wheeze, rhonchi or rales. No use of accessory muscles on inspiration or expiration. ABDOMEN: Soft, nontender. Nondistended. Bowel sounds heard in all 4 quadrants. No organomegaly or masses. Negative rebound, negative guarding EXTREMITIES: No edema, pulses are equal bilaterally. No cyanosis or clubbing NEUROLOGY: Unable to obtain mood and affect Cranial nerves II through XII grossly intact. Patient moving all extremities, speech is slow and mumbled Urinary Catheter: Yes Felipe insert reason: Measure Accurate Output Date of Insertion: Nov 05, 2017 A/P Problem List: (1) Severe sepsis ICD Code: A41.9 - Sepsis, unspecified organism; R65.20 - Severe sepsis without septic shock Status: Acute (2) Diabetic ketoacidosis ICD Code: E13.10 - Other specified diabetes mellitus with ketoacidosis without coma Status: Acute (3) Acute renal failure superimposed on stage 4 chronic kidney disease ICD Code: N17.9 - Acute kidney failure, unspecified; N18.4 - Chronic kidney disease, stage 4 (severe) Status: Acute (4) Hyponatremia ICD Code: E87.1 - Hypo-osmolality and hyponatremia Status: Acute (5) Hyperkalemia Status: Acute (6) Leukocytosis ICD Code: D72.829 - Elevated white blood cell count, unspecified Status: Acute (7) Diarrhea in adult patient ICD Code: R19.7 - Diarrhea, unspecified Status: Acute (8) Metabolic encephalopathy ICD Code: G93.41 - Metabolic encephalopathy Assessment and Plan NEUROLOGY Metabolic encephalopathy Continue monitor neurological function per ICU protocol Avoid sedation PULMONOLOGY Clinically stable at this time Patient maintaining airway, no indication at this time for intubation for airway support Continue O2 sat mentation maintain O2 sat greater than 92% Duo nebs every 4 hours as needed for wheeze CARDIOLOGY Hypotension Shock 11/05 Status post 7 L of IV fluid bolus in ED Continue monitor blood pressure maintain MAP greater than 65 GASTROENTEROLOGY Resume regular diet Pepcid for GI protection RENAL Acute renal failure superimposed on chronic kidney disease stage IV Hyper kalemia, severe-resolved Hyponatremia, severe-result Metabolic acidosis from diabetic ketoacidosis with anion gap 31-resolved Hypocalcemia Electrolyte derangement 11/05 Status post IV insulin, calcium gluconate, sodium bicarb Continue IV fluids Nephrology following Possible need for emergent dialysis if patient is not improved with correction of diabetic ketoacidosis Follow-up BMP Urology following -maintain Felipe catheter secondary to urethral stricture INFECTIOUS DISEASE Diarrhea illness History of MRSA Leukocytosis Obtain urinalysis, blood cultures- NGTD Continue to trend lactic acid level Awaiting stool studies Special C contact isolation until stool studies are finalized then will need contact isolation HEMATOLOGY History of DVT Patient is on Eliquis in the outpatient setting, will resume when patient more alert Continue monitor hemoglobin hematocrit and transfuse if hemoglobin below 7.0 ENDOCRINOLOGY Diabetic ketoacidosis Patient be admitted to ICU with IV insulin protocol F/U hemoglobin A1c PROPHYLAXIS DVT prevention with subcutaneous heparin GI protection with Pepcid LINES Peripheral IV CODE STATUS Full code Discussed with Dr. Rolle., Patient will possibly need hemodialysis we will repeat labs in a.m. Level 2 follow-up. Plan transfer to [facility]ist in a.m. Physician Rissa Angela Problem Qualifiers (1) Diabetic ketoacidosis: Qualified Codes: E10.10 - Type 1 diabetes mellitus with ketoacidosis without coma Rissa Angela MD Nov 06, 2017 17:39
[2017-11-06] MEDS: INSULIN ASPART SUPPLEMENTAL SCALE SQ SCH ×2 (17:41→21:00)
[2017-11-07] VITALS (19 sets, daily range): BP systolic 143–165; BP diastolic 67–89; PULSE 84–110; RESP 16–23; TEMP 98.6–99.4; O2SAT 92–97
[2017-11-07 01:02] LABS: BICARBONATE 17.2 MEQ/L (21.0-32.0); CALCIUM 7.3 MG/DL (8.5-10.1); CREATININE 6.79 MG/DL (0.60-1.30); MAGNESIUM 1.8 MG/DL (1.5-2.5); PHOSPHORUS 3.7 MG/DL (2.5-4.9)
[2017-11-07 01:18] LABS: CALCIUM-PROTEIN CORRECTED 8.8 MG/DL (8.5-10.1); TOTAL PROTEIN 4.4 GM/DL (6.4-8.2)
[2017-11-07] MEDS: metroNIDAZOLE 500 MG INJ 100 ML IV SCH ×3 (03:06→16:30)
[2017-11-07] MEDS: CHLORHEXIDINE GLUCONATE 2 % 1 PACK (2 CLOTHS) TOP SCH (03:40)
[2017-11-07] MEDS: AZTREONAM INJ 500 MG in SODIUM CHLORIDE 0.9% INJ 100 ML IV SCH ×3 (04:22→21:21)
[2017-11-07 04:48] LABS: AUTOMATED NEUTROPHIL # 6.1 TH/MM3 (1.8-7.7); BASOPHIL % 0.4 % (0.0-2.0); EOSINOPHIL % 0.5 % (0.0-4.0); HEMOGLOBIN 8.2 GM/DL (13.0-17.0); LYMPH % 12.4 % (9.0-44.0); MEAN CELL VOLUME 87.7 FL (80.0-100.0); MEAN CORPUSCULAR HGB CONC 34.2 % (32.0-36.0); MONOCYTE # 0.5 TH/MM3 (0-0.9); NEUT % 79.7 % (16.0-70.0); PLATELET COUNT 172 TH/MM3 (150-450); RED BLOOD COUNT 2.74 MIL/MM3 (4.50-5.90); RED CELL DISTRIBUTION WIDTH 13.8 % (11.6-17.2); WHITE BLOOD COUNT 7.7 TH/MM3 (4.0-11.0)
[2017-11-07 05:11] LABS: BICARBONATE 14.2 MEQ/L (21.0-32.0); CALCIUM 7.4 MG/DL (8.5-10.1); CREATININE 6.82 MG/DL (0.60-1.30)
[2017-11-07 05:27] LABS: CALCIUM-PROTEIN CORRECTED 8.8 MG/DL (8.5-10.1); TOTAL PROTEIN 4.7 GM/DL (6.4-8.2)
[2017-11-07] MEDS: HEPARIN SODIUM - SQ 10,000 UNITS/ML VIAL SQ SCH ×2 (05:47→16:11)
[2017-11-07] MEDS: INSULIN ASPART SUPPLEMENTAL SCALE SQ SCH ×4 (08:00→21:00)
[2017-11-07] MEDS: ONDANSETRON HCL 4 MG/2 ML VIAL IV PUSH PRN (08:34)
[2017-11-07] MEDS: FAMOTIDINE 20 MG TAB PO SCH ×2 (08:34→21:23)
[2017-11-07] MEDS: ACETAMINOPHEN 325 MG TAB PO PRN ×2 (08:34→23:03)
[2017-11-07] MEDS: SERTRALINE HCL 100 MG TAB PO SCH (08:34)
[2017-11-07] MEDS: INSULIN DETEMIR 100 UNITS/ML VIAL SQ SCH (08:34)
[2017-11-07] MEDS: TOPIRAMATE 25 MG TAB PO SCH ×2 (08:34→21:23)
[2017-11-07] MEDS: SODIUM CHLORIDE 0.9% FLUSH 10 ML FLUSH IV FLUSH SCH ×2 (08:35→21:23)
[2017-11-07] MEDS: DOCUSATE SODIUM 50 MG/SENNA 8.6 MG TAB PO SCH ×2 (08:35→21:00)
[2017-11-07] MEDS ORDERED: INSULIN DETEMIR 100 UNITS/ML VIAL SQ SCH ×2 (08:45→21:00)
--- NOTE | 2017-11-07 09:49 | HHI.PR ---
Subjective Remarks Follow-up encephalopathy and diabetes mellitus. Patient is lethargic easily arousable. He is oriented to person and place. Patient does not know his basal insulin dose. Discussed with nursing Objective Vitals Vital Signs Date Time Temp Pulse Resp B/P (MAP) Pulse Ox O2 Delivery O2 Flow Rate FiO2 11/07/17 08:00 98.9 97 20 151/76 (101) 95 11/07/17 06:00 95 11/07/17 04:00 99 11/07/17 03:00 98.6 98 19 151/77 (101) 95 11/07/17 02:00 98 11/07/17 00:00 99 11/06/17 23:00 98.7 97 19 123/68 (86) 11/06/17 22:00 100 11/06/17 20:00 97 11/06/17 19:00 99.6 97 15 105/59 (74) 100 11/06/17 18:00 100 11/06/17 16:00 98.4 95 14 105/56 (72) 100 11/06/17 16:00 95 11/06/17 14:00 97 11/06/17 12:00 91 11/06/17 12:00 98.0 91 14 116/63 (80) 100 11/06/17 10:00 97 I/O 11/06/17 11/06/17 11/06/17 11/07/17 11/07/17 11/07/17 07:00 15:00 23:00 07:00 15:00 23:00 Intake Total 1400 ml 300 ml 1550 ml 200 ml Output Total 1175 ml 1400 ml 1750 ml Balance 225 ml 300 ml 150 ml -1550 ml Intake Oral 250 ml IV Total 1400 ml 300 ml 1300 ml 200 ml Output Urine Total 1175 ml 1400 ml 1750 ml Stool Total 0 ml # Bowel Movements 0 2 Result Diagram: 11/07/17 0337 11/07/17 0337 Imaging Last Impressions Chest X-Ray 11/05/17 0000 Signed Impressions: Service Date/Time: Sunday, November 05, 2017 16:07 - CONCLUSION: Decreased lung volumes and possible diffuse developing interstitial infiltrates. Jad Sanchez MD Objective Remarks GENERAL: Well-developed, well-nourished, in no acute distress. Patient mumbling , difficult to obtain orientation. Patient states that he is in [place]. Unable to get much more information HEENT: Head is normocephalic without any lesions or masses noted. Facial features are symmetric. Eyes: Pupils equal round reactive to light. Extraocular muscles are intact. Conjunctivae were clear. NECK: Supple without any masses. Trachea midline no deviation. No JVD, no bruits are appreciated CARDIAC: Regular rhythm, regular rate. S1/S2 are heard. No murmurs gallops or rubs. LUNGS: Clear to auscultation bilaterally. No wheeze, rhonchi or rales. No use of accessory muscles on inspiration or expiration. ABDOMEN: Soft, nontender. Nondistended. Bowel sounds heard in all 4 quadrants. No organomegaly or masses. Negative rebound, negative guarding EXTREMITIES: No edema, pulses are equal bilaterally. No cyanosis or clubbing NEUROLOGY: Cranial nerves II through XII grossly intact. Patient moving all extremities with generalized weakness, speech is slow and mumbled Procedures Urethral dilatation by Date of Insertion: Nov 05, 2017 A/P Problem List: (1) Severe sepsis ICD Code: A41.9 - Sepsis, unspecified organism; R65.20 - Severe sepsis without septic shock Status: Acute (2) Diabetic ketoacidosis ICD Code: E13.10 - Other specified diabetes mellitus with ketoacidosis without coma Status: Acute (3) Leukocytosis ICD Code: D72.829 - Elevated white blood cell count, unspecified Status: Acute (4) Acute renal failure superimposed on stage 4 chronic kidney disease ICD Code: N17.9 - Acute kidney failure, unspecified; N18.4 - Chronic kidney disease, stage 4 (severe) Status: Acute (5) Hyperkalemia Status: Acute (6) Hyponatremia ICD Code: E87.1 - Hypo-osmolality and hyponatremia Status: Acute (7) Diarrhea Status: Chronic (8) Metabolic encephalopathy ICD Code: G93.41 - Metabolic encephalopathy Assessment and Plan NEUROLOGY Metabolic encephalopathy Continue monitor neurological function per ICU protocol Avoid sedation PULMONOLOGY Clinically stable at this time Patient maintaining airway, no indication at this time for intubation for airway support Continue O2 sat mentation maintain O2 sat greater than 92% Duo nebs every 4 hours as needed for wheeze CARDIOLOGY Hypotension Shock 4/15 Status post 7 L of IV fluid bolus in ED Continue monitor blood pressure maintain MAP greater than 65 GASTROENTEROLOGY Resume regular diet Pepcid for GI protection RENAL Acute renal failure superimposed on chronic kidney disease stage IV Hyper kalemia, severe-resolved Hyponatremia, severe-result Metabolic acidosis from diabetic ketoacidosis with anion gap 31-resolved Hypocalcemia Electrolyte derangement 11/05 Status post IV insulin, calcium gluconate, sodium bicarb Continue IV fluids Nephrology following Possible need for emergent dialysis if patient is not improved Follow-up BMP Restart bicarb Urology following -maintain Felipe catheter secondary to urethral stricture INFECTIOUS DISEASE Diarrhea illness negative for C. difficile History of MRSA Leukocytosis Severe sepsis hx UTI Obtain urinalysis, blood cultures- NGTD. Ct Aztreonam and Flagyl. Unfortunately pt on abx already UA not done yet Continue to trend lactic acid level Start Lactinex HEMATOLOGY History of DVT Patient confirms he is not on Eliquis in the outpatient setting Continue monitor hemoglobin hematocrit and transfuse if hemoglobin below 7.0 ENDOCRINOLOGY Diabetic ketoacidosis AG WNL. Ct SSC switch to hi dose and increase Levemir to 5 am and 12 HS. Consult Endo pt on insulin pump F/U hemoglobin A1c PROPHYLAXIS DVT prevention with subcutaneous heparin GI protection with Pepcid LINES Peripheral IV CODE STATUS Full code Discharge Planning Keep in ICU Problem Qualifiers (1) Diabetic ketoacidosis: Qualified Codes: E10.10 - Type 1 diabetes mellitus with ketoacidosis without coma Kvng Larose MD Nov 07, 2017 09:49
[2017-11-07] MEDS ORDERED: SODIUM BICARBONATE 325 MG TAB PO SCH (10:30)
[2017-11-07] MEDS ORDERED: CHOLECALCIFEROL (VIT D3) 5000 UNIT CAP PO SCH (11:00)
[2017-11-07] MEDS ORDERED: SODIUM CHLOR 0.9% 1000 ML INJ 1,000 ML IV PRN (12:17)
[2017-11-07] MEDS ORDERED: SODIUM CHLOR 0.9% 1000 ML INJ 1,000 ML OTHER PRN ×2 (12:17)
--- NOTE | 2017-11-07 12:17 | HHI.NPPN ---
Subjective Renal Failure: Chronic, Acute, Stage IV Interval History He is awake, answers questions. Potassium is normal. DKA has resolved. Renal function however has not improved. He made 3L of urine. (Katelyn Holbrook) Objective Data Data Vital Signs Date Time Temp Pulse Resp B/P (MAP) Pulse Ox O2 Delivery O2 Flow Rate FiO2 11/07/17 10:00 93 11/07/17 08:00 98.9 97 20 151/76 (101) 95 11/07/17 08:00 97 11/07/17 06:00 95 11/07/17 04:00 99 11/07/17 03:00 98.6 98 19 151/77 (101) 95 11/07/17 02:00 98 11/07/17 00:00 99 11/06/17 23:00 98.7 97 19 123/68 (86) 11/06/17 22:00 100 11/06/17 20:00 97 11/06/17 19:00 99.6 97 15 105/59 (74) 100 11/06/17 18:00 100 11/06/17 16:00 98.4 95 14 105/56 (72) 100 11/06/17 16:00 95 11/06/17 14:00 97 (aKtelyn Holbrook) -: 11/07/17 0337 11/07/17 0337 Imaging Last 72 hours Impressions Chest X-Ray 11/05/17 0000 Signed Impressions: Service Date/Time: Sunday, November 05, 2017 16:07 - CONCLUSION: Decreased lung volumes and possible diffuse developing interstitial infiltrates. Jad Sanchez MD Tubes & Lines: Kapoor (Katelyn Holbrook) Physical Exam General Appearance: Well Developed, No Acute Distress, Comfortable (Katelyn Holbrook) Pulmonary Resp Exam: Clear Bilaterally (Katelyn Holbrook) Cardiology CV Exam: Regular, Normal Sinus Rhythm (Katelyn Holbrook) Gastrointestinal/Abdomen GI Exam: Soft, Non-Tender, Bowel Sounds Present (Katelyn Holbrook) Musculoskeletal MS Exam: Joints Intact, Normal Tone (Katelyn Holbrook) Integumentary Skin Exam: Warm, Dry, Intact (Katelyn Holbrook) Extremeties Extremities Exam: No Edema, Pedal Pulses Palpable (Katelyn Holbrook) Neurologic Neuro Exam: Alert, Awake, Oriented, Speech Clear, Moving All Extremities (Katelyn Holbrook) Assessment/Plan Discussed Condition With: Patient Assessment Summary: LARS/Acute Renal Failure, Hypertension, Diabetes Mellitus, CKD Stage IV Electrolyte Assessment: Metabolic Acidosis Problem List: (1) Acute renal failure superimposed on stage 4 chronic kidney disease ICD Codes: N17.9 - Acute kidney failure, unspecified; N18.4 - Chronic kidney disease, stage 4 (severe) Status: Acute Plan: He has underlying CKD 4. His sample paster is in [place], has not seen in months. Most likely has diabetic nephropathy. S/p kapoor placement by urology. Has ureteral stricture. Currently non oliguric. LARS multifactorial. DKA corrected, renal function has not improved. Needs to begin dialysis. His AVF is not patent. Made NPO, will get Permcath placed. HD today and tomorrow Repeat labs. Stop oral bicarbonate. Stop LR. Off IVF It remains to be seen how much improvement in renal function we will witness. His creatinine was about 2.9 in July of this year. (2) Severe sepsis ICD Codes: A41.9 - Sepsis, unspecified organism; R65.20 - Severe sepsis without septic shock Status: Acute Plan: On Aztreonam and flagyl. cultures in progress. Apparently has tendency for recurrent UTI. (3) Hyperkalemia Status: Acute Plan: Improved. Initially due to reduced GFR and resulting metabolic acidosis, and perhaps Bactrim. Monitor for recurrence (4) Metabolic encephalopathy ICD Codes: G93.41 - Metabolic encephalopathy Plan: patient with LARS, DKA Supportive care. Manage underlying conditions. Monitor. (5) Diabetic ketoacidosis ICD Codes: E13.10 - Other specified diabetes mellitus with ketoacidosis without coma Status: Acute Plan: Improved Monitor glucose on long acting insulin Plan Prognosis is guarded. (Katelyn Holbrook) Plan patient was seen and examined. Dialysis to be initiated. Likely needs retirement dialysis. (Olman Rolle MD) Problem Qualifiers (1) Diabetic ketoacidosis: Qualified Codes: E10.10 - Type 1 diabetes mellitus with ketoacidosis without coma Katelyn Holbrook Nov 07, 2017 12:17 Olman Rolle MD Nov 08, 2017 09:11
[2017-11-07] MEDS ORDERED: NITROGLYCERIN 0.4 MG SL 25 TABS/BTL SL PRN (12:30)
[2017-11-07] MEDS ORDERED: ALBUMIN 25% INJ 100 ML IV PRN (12:30)
[2017-11-07] MEDS ORDERED: MANNITOL 12.5 GM/50 ML VIAL IV PRN (12:30)
[2017-11-07] MEDS ORDERED: SODIUM CHLORIDE 0.9% FLUSH 10 ML FLUSH IV FLUSH PRN (12:30)
[2017-11-07] MEDS ORDERED: ONDANSETRON HCL 4 MG/2 ML VIAL IV PUSH PRN (12:30)
[2017-11-07] MEDS ORDERED: ACETAMINOPHEN 325 MG TAB PO PRN (12:30)
[2017-11-07] MEDS ORDERED: GELATIN 12 MM/7 MM FOAM TOP PRN (12:30)
[2017-11-07] MEDS ORDERED: HEPARIN SODIUM - IV 10,000 UNITS/10 ML VIAL IV FLUSH PRN (12:30)
[2017-11-07] MEDS: LACTOBACILLUS ACIDOPHILUS TAB PO SCH ×2 (12:43→16:29)
[2017-11-07] MEDS ORDERED: VANCOMYCIN INJ 1,000 MG in SODIUM CHLOR 0.9% 250 ML INJ 250 ML IV SCH (13:15)
[2017-11-07] MEDS ORDERED: SODIUM CHLOR 0.9% 250 ML INJ 250 ML ONE (14:41)
[2017-11-07] MEDS ORDERED: VANCOMYCIN HCL 1000 MG VIAL ONE (14:41)
[2017-11-07] MEDS ORDERED: LIDOCAINE 1%/EPINEPHrine 1:100,000 SOLN 30 ML VIAL ONE (14:51)
[2017-11-07] MEDS ORDERED: MIDAZOLAM HCL 2 MG/2 ML VIAL ONE (15:02)
--- NOTE | 2017-11-07 15:38 | PD.RAD ---
Post Procedure Progress Note Pre Procedure Diagnosis: (1) CKD (chronic kidney disease) stage 4, GFR 15-29 ml/min Post Procedure Diagnosis: (1) CKD (chronic kidney disease) stage 4, GFR 15-29 ml/min Procedure Date: Nov 07, 2017 Supervising Radiologist: Coy Goldsmith Proceduralist/Assist: Isaac Comer, RT(R), Barbara Angeles RT(R)(CV) Anesthesia: Conscious Sedation Plan of Activity Patient to Unit: ROPU Patient Condition: Good See PACS Report for procedural detail/treatment Coy Goldsmith MD Nov 07, 2017 15:38
[2017-11-07] MEDS ORDERED: HEPARIN SODIUM - IV 2,000 UNITS/2 ML VIAL IV FLUSH PRN (15:45)
[2017-11-07] MEDS: HEPARIN SODIUM - IV 10,000 UNITS/10 ML VIAL PRN (16:23)
[2017-11-07] MEDS: GENTAMICIN SULFATE 20 MG/2 ML VIAL OTHER PRN (16:23)
--- NOTE | 2017-11-07 18:02 | RADRPT ---
EXAM DATE/TIME: 11/07/2017 17:08 [facility] COMPARISON: US KIDNEY/RENAL/BLADDER, August 13, 2017, 14:21. INDICATIONS : Increased BUN/creatinine MEDICAL HISTORY : Gastroesophageal reflux disease. Deep venous thrombosis. Seizures. CVA. Migraine. Ulcer. Renal fail ure, stage 4. MRSA, 2017. SURGICAL HISTORY : Left eye surgery.Orthopedic surgery, right foot and heel. AVF, right arm. ENCOUNTER: Subsequent ACUITY: > 1 year PAIN SCORE: 1/10 LOCATION: Bilateral flank MEASUREMENTS: RIGHT KIDNEY: 11.2 x 5.5 x 5.2 cm LEFT KIDNEY: 11.5 x 5.7 x 6.0 cm FINDINGS: Kidneys are echogenic. Small cysts are seen bilaterally including one in the right lower pole measuri ng 17 x 15 x 14 mm. 2 within the left mid kidney measuring 10 x 10 x 9 mm and 16 x 18 x 17 mm. Urinar y bladder decompressed by Felipe catheter. CONCLUSION: 1. Echogenic kidneys consistent with medical renal disease. 2. Bilateral benign renal cysts. Fabricio Isaac MD on November 07, 2017 at 17:59 Board Certified Radiologist. This report was verified electronically.
--- NOTE | 2017-11-07 18:43 | PD.CONS ---
History of Present Illness Service Endocrinology Consult Requested By Dr Hurd Reason for Consult DKA, uncontrolled Type 1 diabetes on insulin pump Primary Care Physician Non-Staff Diagnoses: History of Present Illness This is a 37 years old man with a very longstanding history of type 1 diabetes complicated by Diabetic retinopathy, legal blindness, PNP, stage IV CKD who was admitted with severe hyperglycemia with blood sugars in the 1500 range and severe acidosis C/W DKA. He was also found to have acute on chronic renal failure and had to be dilated by Urology for a urethra stricture with impeded catheterization. His laboratory abnormalities on admission consisted of severe acidosis, psuedo hyponatremia, hyperkalemia and hyperglycemia as stated above. Otherwise he is currently volume repleted. He has been managed with a [employer] Insulin pump for the last 2 years. He reports that his last HBA1c as an outpatient was about 7.2%. Otherwise he reports not having episodes of hypoglycemia nor frequent DKA's in the past. His diabetes is complicated as stated above. Currently he is able to give some history although some questions have to be repeated several times band he seems to be having difficulty recalling some information. He reprots changing his insulin sites once a week and to use his phone's Acusphere glass to dose his insulin . Review of his insulin pump reveals a basal rate setup of 12AM: 0.700 u/hr, 6AM: 1.85 u/hr, 11 AM: 0.825 u/hr and bolus wizard settings of insulin to carb ratio of 1:12, insulin sensitivity factor of 1: 50, target of 120 - 120 mg/dl and active insulin time of 4 hours. Review of Systems ROS Limitations: Clinical Condition Eyes: COMPLAINS OF: Vision loss ( patient is legally blind) Past Family Social History Allergies: Coded Allergies: amoxicillin (Verified Allergy, Severe, Rash, 11/01/17) broccoli (Verified Allergy, Severe, ANAPHYLAXIS, 11/01/17) mushroom (Verified Allergy, Severe, ANAPHYLAXIS, 11/01/17) penicillin G (Verified Allergy, Severe, Hives, 11/01/17) *MDRO Multi-Drug Resistant Organism (Verified Adverse Reaction, Unknown, ) MRSA 06/2014 and 11/2009. MRSA PCR Screen positive 05/21/15. Past Medical History renal stones, type 1 diabetes complicated by PNP, CKD stage IV, acute on chronic renal failure, diabetic retinopathy resulting in legal blindness, urethra stricture on admission with urinary retention. Past Surgical History patient cannot remember what type of surgery he had. Reported Medications see chart Active Ordered Medications see chart Family History sister with renal stones Social History Raymundo is on disability, lives with other roommates, is single, unemployed and otherwise denies smoking, drinking or the use of illicit drugs. Physical Exam Vital Signs Vital Signs Date Time Temp Pulse Resp B/P (MAP) Pulse Ox O2 Delivery O2 Flow Rate FiO2 11/07/17 17:23 91 21 143/78 (99) 95 11/07/17 16:23 84 16 165/88 (113) 96 11/07/17 16:00 98.9 97 18 151/76 (101) 93 11/07/17 16:00 97 11/07/17 15:53 97 16 155/67 (96) 92 11/07/17 15:38 110 22 155/73 (100) 92 11/07/17 14:00 87 11/07/17 13:00 99.4 90 22 159/70 (99) 96 11/07/17 12:00 92 11/07/17 10:00 93 11/07/17 08:00 98.9 97 20 151/76 (101) 95 11/07/17 08:00 97 11/07/17 06:00 95 11/07/17 04:00 99 11/07/17 03:00 98.6 98 19 151/77 (101) 95 11/07/17 02:00 98 11/07/17 00:00 99 11/06/17 23:00 98.7 97 19 123/68 (86) 11/06/17 22:00 100 11/06/17 20:00 97 11/06/17 19:00 99.6 97 15 105/59 (74) 100 11/06/17 18:00 100 Physical Exam GENERAL: This is a well-nourished, well-developed patient, complaining of feeling cold and having some abdominal pain while being evaluated by ultrasound at the bedside. SKIN: No rashes, ecchymoses or lesions. Cool and dry. HEAD: Atraumatic. Normocephalic. No temporal or scalp tenderness. EYES: Patient is legally blind. EOM seem to be intact. No injection or drainage. ENT: Nose without bleeding, purulent drainage. Airway patent. NECK: Trachea midline. No JVD or lymphadenopathy. Supple, nontender neck. . CARDIOVASCULAR: Regular rate and rhythm without murmurs, gallops, or rubs. RESPIRATORY: Clear to auscultation anterior chest. Patient is currently undergoing hemodialysis which makes his assessment a little bit difficult. Breath sounds equal bilaterally. No wheezes, rales, or rhonchi. GASTROINTESTINAL: Abdomen soft, tender while undergoing ultrasound evaluation but nondistended. No guarding. MUSCULOSKELETAL: Extremities without clubbing, cyanosis, or edema. decreased hair growth on both lower extremities. Patient has IV lines locations as per chart. . NEUROLOGICAL: Awake and alert. Cranial nerves II through XII intact. Able to move his extremities. Currently undergoing hemodialysis hence rest of neurologic examination aborted. Normal speech. Laboratory Laboratory Tests Test 11/07/17 00:03 11/07/17 03:37 11/07/17 10:03 11/07/17 13:28 Blood Urea Nitrogen 50 50 Creatinine 6.79 6.82 Random Glucose 195 312 Total Protein 4.4 4.7 Calcium Level 7.3 7.4 Phosphorus Level 3.7 Magnesium Level 1.8 Sodium Level 144 143 Potassium Level 4.0 4.0 Chloride Level 116 115 Carbon Dioxide Level 17.2 14.2 Anion Gap 11 14 Estimat Glomerular Filtration Rate 9 9 Protein Corrected Calcium 8.8 8.8 Total Creatine Kinase 316 Creatine Kinase MB 9.6 Creatine Kinase MB % 3.0 White Blood Count 7.7 Red Blood Count 2.74 Hemoglobin 8.2 Hematocrit 24.0 Mean Corpuscular Volume 87.7 Mean Corpuscular Hemoglobin 30.0 Mean Corpuscular Hemoglobin Concent 34.2 Red Cell Distribution Width 13.8 Platelet Count 172 Mean Platelet Volume 9.0 Neutrophils (%) (Auto) 79.7 Lymphocytes (%) (Auto) 12.4 Monocytes (%) (Auto) 7.0 Eosinophils (%) (Auto) 0.5 Basophils (%) (Auto) 0.4 Neutrophils # (Auto) 6.1 Lymphocytes # (Auto) 1.0 Monocytes # (Auto) 0.5 Eosinophils # (Auto) 0.0 Basophils # (Auto) 0.0 CBC Comment DIFF FINAL Differential Comment Ammonia 21 Hepatitis A IgM Antibody NONREACTIVE Hepatitis B Surface Antigen NONREACTIVE Hepatitis B Core IgM Antibody NONREACTIVE Hepatitis C IgG Antibody NONREACTIVE Date/Time Source Procedure Growth Status 4/15/18 20:12 Blood Peripheral Aerobic Blood Culture - Preliminary NO GROWTH IN 2 DAYS Resulted 11/05/17 20:12 Blood Peripheral Anaerobic Blood Culture - Preliminary NO GROWTH IN 2 DAYS Resulted Result Diagram: 11/07/1733611/07/17336 Assessment and Plan Problem List: (1) Hyperglycemia due to type 1 diabetes mellitus ICD Codes: E10.65 - Type 1 diabetes mellitus with hyperglycemia Status: Acute (2) Diabetic ketoacidosis ICD Codes: E13.10 - Other specified diabetes mellitus with ketoacidosis without coma Status: Acute (3) Diabetes mellitus type 1 Status: Chronic (4) CKD (chronic kidney disease) stage 4, GFR 15-29 ml/min ICD Codes: N18.4 - Chronic kidney disease, stage 4 (severe) Status: Acute (5) Metabolic encephalopathy ICD Codes: G93.41 - Metabolic encephalopathy (6) Hyponatremia ICD Codes: E87.1 - Hypo-osmolality and hyponatremia Status: Acute (7) Diabetic neuropathy Status: Chronic (8) Diabetic retinopathy Status: Chronic (9) Acute renal failure superimposed on stage 4 chronic kidney disease ICD Codes: N17.9 - Acute kidney failure, unspecified; N18.4 - Chronic kidney disease, stage 4 (severe) Status: Acute (10) Hyperkalemia Status: Acute Assessment and Plan Type 1 diabetes on insulin pump uncontrolled status post DKA Recommend 14 units at bedtime and 14 units in the morning. Hold insulin pump since patient does not have supplies and does not have anyone to bring them to him Advised patient on the need to change his sites every 3rd day rather than once a week Removed insulin pump site at the bedside. Discussed PO intake with the patient. At this point since he feels he is not that hungry we have agreed he will be getting 45 grams of carbs at each meal till he was to feel like eating more Will add 4 units of Novolog before each meal three times a day in addition to a low dose sliding scale. Will follow. Managment discussed with RN. Orders written. Thank you for allowing me to participate in the medical management of this patient. Problem Qualifiers (1) Diabetic ketoacidosis: Qualified Codes: E10.10 - Type 1 diabetes mellitus with ketoacidosis without coma Doug Sow MD Nov 07, 2017 18:43
[2017-11-07] MEDS ORDERED: INSULIN DETEMIR 100 UNITS/ML VIAL SQ ONE ×2 (19:00→20:00)
[2017-11-07] MEDS: PARICALCITOL 1 MCG CAP PO SCH (21:23)
[2017-11-08] VITALS (13 sets, daily range): BP systolic 119–182; BP diastolic 70–103; PULSE 67–91; RESP 13–17; TEMP 98.3–99.2; O2SAT 96–99
[2017-11-08] MEDS: cloNIDine HCL 0.1 MG TAB PO PRN ×4 (00:19→22:21)
[2017-11-08] MEDS: traMADol HCL 50 MG TAB PO PRN ×4 (02:06→22:21)
[2017-11-08] MEDS: metroNIDAZOLE 500 MG INJ 100 ML IV SCH ×3 (02:21→17:31)
[2017-11-08] MEDS ORDERED: hydrALAZINE HCL 20 MG/ML VIAL IV PUSH ONE (03:15)
[2017-11-08] MEDS: AZTREONAM INJ 500 MG in SODIUM CHLORIDE 0.9% INJ 100 ML IV SCH ×3 (04:39→22:28)
[2017-11-08] MEDS: CHLORHEXIDINE GLUCONATE 2 % 1 PACK (2 CLOTHS) TOP SCH (04:39)
[2017-11-08] MEDS: HEPARIN SODIUM - SQ 10,000 UNITS/ML VIAL SQ SCH ×2 (06:00→17:31)
[2017-11-08] MEDS ORDERED: INSULIN DETEMIR 100 UNITS/ML VIAL SQ SCH ×4 (08:00→21:00)
[2017-11-08] MEDS: INSULIN ASPART 1,000 UNITS/10 ML VIAL SQ SCH ×2 (08:00→12:00)
[2017-11-08] MEDS: INSULIN ASPART SUPPLEMENTAL SCALE SQ SCH ×4 (08:00→20:21)
[2017-11-08] MEDS: ASPIRIN 81 MG CHEW TAB CHEW SCH (08:11)
[2017-11-08] MEDS: TOPIRAMATE 25 MG TAB PO SCH ×2 (08:11→22:20)
[2017-11-08] MEDS: FAMOTIDINE 20 MG TAB PO SCH ×2 (08:11→22:20)
[2017-11-08] MEDS: SERTRALINE HCL 100 MG TAB PO SCH (08:11)
[2017-11-08] MEDS: LACTOBACILLUS ACIDOPHILUS TAB PO SCH ×3 (08:11→17:31)
[2017-11-08] MEDS: ONDANSETRON HCL 4 MG/2 ML VIAL IV PUSH PRN (08:12)
[2017-11-08] MEDS: SODIUM CHLORIDE 0.9% FLUSH 10 ML FLUSH IV FLUSH SCH ×2 (08:12→22:29)
[2017-11-08] MEDS: DOCUSATE SODIUM 50 MG/SENNA 8.6 MG TAB PO SCH ×2 (08:13→19:22)
[2017-11-08] MEDS: HEPARIN SODIUM - IV 10,000 UNITS/10 ML VIAL PRN (08:37)
[2017-11-08] MEDS: GENTAMICIN SULFATE 20 MG/2 ML VIAL OTHER PRN (08:37)
[2017-11-08 08:53] LABS: BICARBONATE 19.5 MEQ/L (21.0-32.0); CALCIUM 7.6 MG/DL (8.5-10.1); CREATININE 4.43 MG/DL (0.60-1.30); MAGNESIUM 1.6 MG/DL (1.5-2.5)
--- NOTE | 2017-11-08 09:42 | RADRPT ---
EXAM DATE/TIME: 11/07/2017 14:27 [facility] COMPARISON: No previous studies available for comparison. INDICATIONS : Patient presents with chronic kidney disease in need of dialysis catheter placement. MEDICAL HISTORY : Diabetes, insulin-dependent Chronic kidney disease stage III Hypertension Hyperlipidemia Chronic metabolic acidosis History of DVT in left lower extremity Retinal detachments Scoliosis Erectile dysfunction Left foot drop Peripheral neuropathy History of seizures from hypoglycemia History of CVA Posttraumatic stress disorder Anxiety/depression SURGICAL HISTORY : AV fistula in right upper extremity Left eye surgery Right foot surgery ENCOUNTER: Initial ACUITY: 2 days PAIN SCORE: 7/10 LOCATION: Abdomen FLUORO TIME: 0.35 minutes IMAGE SERIES: 0 SEDATION TIME: 30 minutes ACCESS: Right internal jugular vein SEDATION: 1.) 2 mg midazolam (Versed) IV 2.) 100 mcg fentanyl (Sublimaze) IV Prophylactic antibiotics were administered with appropriate pre-procedure timing. Vancomycin within 2 hours of procedure, Ancef (or alternative) within 1 hour of procedure. DEVICE: 1. 15 Thai dual lumen 19 cm Prescott II Plus catheter PROCEDURE : 1. Ultrasound-guided venipuncture. 2. PermaCath placement. 3. Conscious sedation with continuous EKG and oximetry monitoring. The risks, benefits and alternatives to the procedure were explained and verbal and written consent w as obtained. The site was prepped in sterile fashion. Full sterile technique was used, including ca p, mask, sterile gloves and gown and a large sterile sheet. Hand hygiene and 2% chlorhexidine and/or betadine/alcohol prep was utilized per protocol for cutaneous antisepsis. Sterile gel and sterile p robe cover were utilized for ultrasound guidance. The skin and subcutaneous tissues were infiltrated with local anesthetic solution. With ultrasound and fluoroscopic guidance a dermatotomy was created over the prescribed vein. A micr opuncture set was used to access the targeted vein and serial dilatation was performed to accept the prescribed length catheter. A subcutaneous tunnel was created in a retrograde fashion the catheter w as pulled through the tunnel. The catheter was flushed and assembled and locked with heparin. The c atheter was sutured in place. Conscious sedation was performed with the prescribed dosages and duration as above in the presence of an independent trained radiology nurse to assist in the monitoring of the patient. EKG and oximetry remained stable throughout the procedure. The patient tolerated the procedure well and there were n o complications. The patient was sent to post anesthesia recovery in stable condition. CONCLUSION: Uncomplicated PermaCath placement as above. Coy Bozorgmanesh, MD on November 08, 2017 at 9:40 Board Certified Radiologist. This report was verified electronically.
--- NOTE | 2017-11-08 11:23 | HHI.NPPN ---
Subjective Renal Failure: Chronic, Acute, Stage IV Interval History PC placed on right. HD first treatment yesterday, 1L UF. He is making excellent urine. Seen during dialysis today. (Katelyn Holbrook) Review of Systems General Constitutional: Fatigue (Katelyn Holbrook) Objective Data Data 11/08/17 11/09/17 19:00 07:00 Output Total 500 ml Balance -500 ml Hemodialysis 500 ml Vital Signs Date Time Temp Pulse Resp B/P (MAP) Pulse Ox O2 Delivery O2 Flow Rate FiO2 11/08/17 06:00 69 11/08/17 04:00 72 11/08/17 04:00 98.8 72 15 173/84 (113) 99 11/08/17 03:06 15 11/08/17 02:00 72 11/08/17 00:03 17 11/08/17 00:00 74 11/08/17 00:00 98.9 74 17 182/96 (124) 99 11/07/17 22:00 87 11/07/17 20:00 99.0 91 17 165/82 (109) 94 11/07/17 20:00 91 11/07/17 18:00 88 11/07/17 17:53 94 23 156/89 (111) 97 11/07/17 17:23 91 21 143/78 (99) 95 11/07/17 16:23 84 16 165/88 (113) 96 11/07/17 16:00 98.9 97 18 151/76 (101) 93 11/07/17 16:00 97 11/07/17 15:53 97 16 155/67 (96) 92 11/07/17 15:38 110 22 155/73 (100) 92 11/07/17 14:00 87 11/07/17 13:00 99.4 90 22 159/70 (99) 96 11/07/17 12:00 92 (Katelyn Holbrook) -: 11/07/17 0337 11/08/17 0640 Imaging Last 72 hours Impressions Renal Ultrasound 11/07/17 0000 Signed Impressions: Service Date/Time: Tuesday, November 07, 2017 17:08 - CONCLUSION: 1. Echogenic kidneys consistent with medical renal disease. 2. Bilateral benign renal cysts. Fabricio Isaac MD Catheter Placement X-Ray 11/07/17 0000 Signed Impressions: Service Date/Time: Tuesday, November 07, 2017 14:27 - CONCLUSION: Uncomplicated PermaCath placement as above. Coy Goldsmith MD Tubes & Lines: Perma-Cath, Kapoor (Robert Holbrookon B. HATCHERY LABORER) Physical Exam General Appearance: Well Developed, No Acute Distress, Comfortable (Sheron,Katelyn B. HATCHERY LABORER) Pulmonary Resp Exam: Clear Bilaterally (Sheron,Katelyn B. HATCHERY LABORER) Cardiology CV Exam: Regular, Normal Sinus Rhythm (Sheron,Katelyn B. HATCHERY LABORER) Gastrointestinal/Abdomen GI Exam: Soft, Non-Tender, Bowel Sounds Present (Sheron,Katelyn B. HATCHERY LABORER) Musculoskeletal MS Exam: Joints Intact, Normal Tone (Sheron,Katelyn B. HATCHERY LABORER) Integumentary Skin Exam: Warm, Dry, Intact (Sheron,Katelyn B. HATCHERY LABORER) Extremeties Extremities Exam: No Edema, Pedal Pulses Palpable (Sheron,Katelyn B. HATCHERY LABORER) Neurologic Neuro Exam: Alert, Awake, Oriented, Speech Clear, Moving All Extremities (Sheron,Katelyn B. HATCHERY LABORER) Assessment/Plan Discussed Condition With: Patient Assessment Summary: LARS/Acute Renal Failure, Hypertension, Diabetes Mellitus, CKD Stage IV Electrolyte Assessment: Metabolic Acidosis Problem List: (1) Acute renal failure superimposed on stage 4 chronic kidney disease ICD Codes: N17.9 - Acute kidney failure, unspecified; N18.4 - Chronic kidney disease, stage 4 (severe) Status: Acute Plan: He has underlying CKD 4. 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 Most likely has diabetic nephropathy. S/p kapoor placement by urology. Has ureteral stricture. Currently non oliguric. LARS multifactorial. Due to sepsis, DKA, urinary obstruction. HD initialed 11/07. Seen during dialysis today on a 3K, 300 BFR, goal 1L Repeat labs daily. HD MWF as needed. We will attempt to use AVF Monday. 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 D /W patient. Off IVF Avoid nephrotoxins. (2) Severe sepsis ICD Codes: A41.9 - Sepsis, unspecified organism; R65.20 - Severe sepsis without septic shock Status: Acute Plan: On Aztreonam and flagyl. cultures in progress. Apparently has tendency for recurrent UTI. (3) Hyperkalemia Status: Acute Plan: Improved. Initially due to reduced GFR and resulting metabolic acidosis, and perhaps Bactrim. Monitor for recurrence (4) Metabolic encephalopathy ICD Codes: G93.41 - Metabolic encephalopathy Plan: Improving. supportive care. Manage underlying conditions. Monitor. (5) Diabetic ketoacidosis ICD Codes: E13.10 - Other specified diabetes mellitus with ketoacidosis without coma Status: Resolved Plan: Seen by endocrinology Insulin pump off Multimodal insulin (Katelyn Holbrook) Problem List: (1) Acute renal failure superimposed on stage 4 chronic kidney disease ICD Codes: N17.9 - Acute kidney failure, unspecified; N18.4 - Chronic kidney disease, stage 4 (severe) Status: Acute Plan: He has underlying CKD 4. 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 Most likely has diabetic nephropathy. S/p kapoor placement by urology. Has ureteral stricture. Currently non oliguric. LARS multifactorial. Due to sepsis, DKA, urinary obstruction. HD initialed 11/07. Seen during dialysis today on a 3K, 300 BFR, goal 1L Repeat labs daily. HD MWF as needed. We will attempt to use AVF Monday. IT is unclear if he will need [facility]iary HD. D /W patient. Off IVF Avoid nephrotoxins. (2) Severe sepsis ICD Codes: A41.9 - Sepsis, unspecified organism; R65.20 - Severe sepsis without septic shock Status: Acute Plan: On Aztreonam and flagyl. cultures in progress. Apparently has tendency for recurrent UTI. (3) Hyperkalemia Status: Acute Plan: Improved. Initially due to reduced GFR and resulting metabolic acidosis, and perhaps Bactrim. Monitor for recurrence (4) Metabolic encephalopathy ICD Codes: G93.41 - Metabolic encephalopathy Plan: Improving. supportive care. Manage underlying conditions. Monitor. (5) Diabetic ketoacidosis ICD Codes: E13.10 - Other specified diabetes mellitus with ketoacidosis without coma Status: Resolved Plan: Seen by endocrinology Insulin pump off Multimodal insulin Plan patient was seen and examined. Seen during dialysis. Severe anemia is noted. Obtain iron studies, consider Epogen. Will attempt cannulation of AVF on Monday. (Olman Rolle MD) Problem Qualifiers (1) Diabetic ketoacidosis: Qualified Codes: E10.10 - Type 1 diabetes mellitus with ketoacidosis without coma Katelyn HolbrookP Nov 08, 2017 11:23 Olman Rolle MD Nov 08, 2017 21:22
[2017-11-08 13:52] LABS: BILIRUBIN, URINE NEG (NEG); BLOOD, URINE SMALL (NEG); GLUCOSE,URINE 1000 mg/dL (NEG); KETONE, URINE 40 mg/dL (NEG); MUCUS URINE FEW /lpf (OCC); NITRITE,URINE NEG (NEG); URINE COLOR LIGHT-YELLOW (YELLW/STRAW); URINE LEUKOCYTE ESTERASE NEG (NEG)
--- NOTE | 2017-11-08 14:38 | HHI.PR ---
Subjective Remarks Patient is doing better. White count has come brandy. He is currently sitting by his bed. Did eat today. Per his report had about 60 grams of carbohydrates. Blood sugars are better. Insulin orders have been clarified last night. Objective Vital Signs Date Time Temp Pulse Resp B/P (MAP) Pulse Ox O2 Delivery O2 Flow Rate FiO2 11/08/17 14:00 73 133/76 (95) 99 11/08/17 14:00 73 11/08/17 12:00 98.3 69 16 150/103 (119) 97 11/08/17 12:00 69 11/08/17 10:00 77 16 119/70 (86) 97 11/08/17 10:00 77 11/08/17 09:00 67 16 166/93 (117) 97 11/08/17 08:00 73 11/08/17 08:00 99.2 73 15 176/90 (118) 96 11/08/17 06:00 69 11/08/17 04:00 72 11/08/17 04:00 98.8 72 15 173/84 (113) 99 11/08/17 03:06 15 11/08/17 02:00 72 11/08/17 00:03 17 11/08/17 00:00 74 11/08/17 00:00 98.9 74 17 182/96 (124) 99 11/07/17 22:00 87 11/07/17 20:00 99.0 91 17 165/82 (109) 94 11/07/17 20:00 91 11/07/17 18:00 88 11/07/17 17:53 94 23 156/89 (111) 97 11/07/17 17:23 91 21 143/78 (99) 95 11/07/17 16:23 84 16 165/88 (113) 96 11/07/17 16:00 98.9 97 18 151/76 (101) 93 11/07/17 16:00 97 11/07/17 15:53 97 16 155/67 (96) 92 11/07/17 15:38 110 22 155/73 (100) 92 I/O 11/07/1718 11/07/17 11/08/17 11/08/17 11/08/17 07:00 15:00 23:00 07:00 15:00 23:00 Intake Total 200 ml 100 ml 780 ml 440 ml Output Total 1750 ml 1600 ml 2700 ml 3550 ml 500 ml Balance -1550 ml -1500 ml -1920 ml -3110 ml -500 ml Intake Oral 480 ml 240 ml IV Total 200 ml 100 ml 300 ml 200 ml Output Urine Total 1750 ml 1600 ml 1700 ml 3550 ml Hemodialysis 1000 ml 500 ml # Bowel Movements 2 1 1 Result Diagram: 11/07/17 0337 11/08/17 0640 Other Results Blood sugars reviewed Assessment and Plan Problem List: (1) Hyperglycemia due to type 1 diabetes mellitus ICD Codes: E10.65 - Type 1 diabetes mellitus with hyperglycemia Status: Acute (2) Diabetic ketoacidosis ICD Codes: E13.10 - Other specified diabetes mellitus with ketoacidosis without coma Status: Resolved (3) Diabetes mellitus type 1 Status: Chronic (4) CKD (chronic kidney disease) stage 4, GFR 15-29 ml/min ICD Codes: N18.4 - Chronic kidney disease, stage 4 (severe) Status: Acute (5) Metabolic encephalopathy ICD Codes: G93.41 - Metabolic encephalopathy (6) Hyponatremia ICD Codes: E87.1 - Hypo-osmolality and hyponatremia Status: Acute (7) Diabetic neuropathy Status: Chronic (8) Diabetic retinopathy Status: Chronic (9) Acute renal failure superimposed on stage 4 chronic kidney disease ICD Codes: N17.9 - Acute kidney failure, unspecified; N18.4 - Chronic kidney disease, stage 4 (severe) Status: Acute (10) Hyperkalemia Status: Acute Assessment and Plan Type 1 diabetes on insulin pump uncontrolled status post DKA Recommend 16 units at bedtime and 16 units in the morning. Increase aspart insulin to 6 units AC plus correction scale Keep on 60 grams of carbs at meal times and use non carb snacks in between his meals Management discussed with RN. Patient agrees to eat the 60 grams of carbs at his meals. Advised on the need to do this to avoid hypoglycemia. Orders written. Thank you for allowing me to participate in the medical management of this patient. Will follow with you. Problem Qualifiers (1) Diabetic ketoacidosis: Qualified Codes: E10.10 - Type 1 diabetes mellitus with ketoacidosis without coma Doug Sow MD Nov 08, 2017 14:38
--- NOTE | 2017-11-08 18:46 | HHI.PR ---
Subjective Remarks Blood sugars are improved. Endocrinology is adjusting baseline treatments. No new complaints from the patient. Objective Vital Signs Date Time Temp Pulse Resp B/P (MAP) Pulse Ox O2 Delivery O2 Flow Rate FiO2 11/08/17 18:00 91 11/08/17 16:00 68 11/08/17 16:00 98.6 68 13 161/87 (111) 98 11/08/17 14:00 73 133/76 (95) 99 11/08/17 14:00 73 11/08/17 12:00 98.3 69 16 150/103 (119) 97 11/08/17 12:00 69 11/08/17 10:00 77 16 119/70 (86) 97 11/08/17 10:00 77 11/08/17 09:00 67 16 166/93 (117) 97 11/08/17 08:00 73 11/08/17 08:00 99.2 73 15 176/90 (118) 96 11/08/17 06:00 69 11/08/17 04:00 72 11/08/17 04:00 98.8 72 15 173/84 (113) 99 11/08/17 03:06 15 11/08/17 02:00 72 11/08/17 00:03 17 11/08/17 00:00 74 11/08/17 00:00 98.9 74 17 182/96 (124) 99 11/07/17 22:00 87 11/07/17 20:00 99.0 91 17 165/82 (109) 94 11/07/17 20:00 91 I/O 11/07/17 11/07/17 11/07/17 11/08/17 11/08/17 11/08/17 06:59 14:59 22:59 06:59 14:59 22:59 Intake Total 200 ml 100 ml 780 ml 440 ml 100 ml 1060 ml Output Total 1750 ml 1600 ml 2700 ml 3550 ml 500 ml 1800 ml Balance -1550 ml -1500 ml -1920 ml -3110 ml -400 ml -740 ml Intake Oral 480 ml 240 ml 960 ml IV Total 200 ml 100 ml 300 ml 200 ml 100 ml 100 ml Output Urine Total 1750 ml 1600 ml 1700 ml 3550 ml 1800 ml Hemodialysis 1000 ml 500 ml # Bowel Movements 2 1 1 1 Result Diagram: 11/07/17 0337 11/08/17 0640 Objective Remarks GENERAL: NAD, A&Ox3 HEAD: Normocephalic. NECK: Supple, trachea midline. No lymphadenopathy. EYES: No scleral icterus. No injection or drainage. CARDIOVASCULAR: Regular rate and rhythm without murmurs, gallops, or rubs. RESPIRATORY: Breath sounds equal bilaterally. No accessory muscle use. GASTROINTESTINAL: Abdomen soft, non-tender, nondistended. MUSCULOSKELETAL: No cyanosis, or edema. SKIN: Warm and dry. NEURO: No focal neurological deficitis. Global weakness. A/P Problem List: (1) Diabetic ketoacidosis ICD Code: E13.10 - Other specified diabetes mellitus with ketoacidosis without coma Status: Resolved Assessment and Plan 37-year-old male admitted secondary to DKA with urinary tract infection and metabolic encephalopathy. DKA Result Follow blood sugars Insulin sliding scale Diabetic diet Long-acting insulin suggested by endocrinology Endocrinology following Blood sugars are improving through time Metabolic encephalopathy Improving Monitor for further improvement Hypotension Shock Resolved Acute renal failure chronic kidney disease stage IV Metabolic acidosis Hypocalcemia Electrolyte derangement Continue to monitor renal function Continue IV hydration Dialysis may be needed now or in the near future Diarrhea illness negative for C. difficile History of MRSA Leukocytosis Severe sepsis hx UTI Continue aztreonam Continue Flagyl Continue Lactinex History of DVT DVT prophylaxis Subcutaneous heparin Discharge Planning Stable for transfer out of ICU Problem Qualifiers (1) Diabetic ketoacidosis: Qualified Codes: E10.10 - Type 1 diabetes mellitus with ketoacidosis without coma Dom Watkins MD Nov 08, 2017 18:46
[2017-11-08] MEDS ORDERED: INSULIN DETEMIR 100 UNITS/ML VIAL SQ ONE (21:45)
[2017-11-08] MEDS: PARICALCITOL 1 MCG CAP PO SCH (22:21)
[2017-11-09] VITALS (20 sets, daily range): BP systolic 129–182; BP diastolic 82–106; PULSE 63–80; RESP 8–24; TEMP 98.1–98.4; O2SAT 93–100
[2017-11-09] MEDS: CHLORHEXIDINE GLUCONATE 2 % 1 PACK (2 CLOTHS) TOP SCH (03:20)
[2017-11-09] MEDS: metroNIDAZOLE 500 MG INJ 100 ML IV SCH ×3 (03:34→17:53)
[2017-11-09] MEDS: AZTREONAM INJ 500 MG in SODIUM CHLORIDE 0.9% INJ 100 ML IV SCH ×3 (03:34→20:40)
[2017-11-09] MEDS: DEXTROSE 50% IN WATER 50 ML VIAL(D50) IV PUSH PRN ×3 (03:44→15:01)
[2017-11-09] MEDS: traMADol HCL 50 MG TAB PO PRN ×3 (05:17→20:41)
[2017-11-09] MEDS: HEPARIN SODIUM - SQ 10,000 UNITS/ML VIAL SQ SCH ×2 (05:18→17:53)
[2017-11-09 06:50] LABS: BASOPHIL % 0.6 % (0.0-2.0); EOSINOPHIL # 0.2 TH/MM3 (0-0.4); EOSINOPHIL % 2.7 % (0.0-4.0); HEMATOCRIT 24.6 % (39.0-51.0); HEMOGLOBIN 8.4 GM/DL (13.0-17.0); LYMPH % 20.4 % (9.0-44.0); LYMPHOCYTE # 1.2 TH/MM3 (1.0-4.8); MEAN CELL VOLUME 86.5 FL (80.0-100.0); MEAN CORPUSCULAR HEMOGLOBIN 29.6 PG (27.0-34.0); MEAN CORPUSCULAR HGB CONC 34.2 % (32.0-36.0); MEAN PLATELET VOLUME 8.3 FL (7.0-11.0); MONO % 6.2 % (0.0-8.0); MONOCYTE # 0.4 TH/MM3 (0-0.9); NEUT % 70.1 % (16.0-70.0); PLATELET COUNT 145 TH/MM3 (150-450); RED BLOOD COUNT 2.84 MIL/MM3 (4.50-5.90); RED CELL DISTRIBUTION WIDTH 13.4 % (11.6-17.2); WHITE BLOOD COUNT 5.7 TH/MM3 (4.0-11.0)
[2017-11-09 07:24] LABS: ALBUMIN 1.9 GM/DL (3.4-5.0); ALKALINE PHOSPHATASE 75 U/L (45-117); BICARBONATE 26.9 MEQ/L (21.0-32.0); BLOOD UREA NITROGEN 20 MG/DL (7-18); CALCIUM 6.7 MG/DL (8.5-10.1); CHLORIDE 109 MEQ/L (98-107); CREATININE 2.83 MG/DL (0.60-1.30); GLOMERULAR FILTRATION RATE 26 ML/MIN (>89); GLUCOSE,RANDOM 125 MG/DL (74-106); MAGNESIUM 1.4 MG/DL (1.5-2.5); SODIUM (NA) 146 MEQ/L (136-145); TOTAL BILIRUBIN ADULT 0.2 MG/DL (0.2-1.0); TOTAL PROTEIN 4.6 GM/DL (6.4-8.2)
[2017-11-09 07:59] LABS: ALT (GPT) LESS THAN 21 U/L (12-78); AST (GOT) 15 U/L (15-37)
[2017-11-09] MEDS ORDERED: INSULIN DETEMIR 100 UNITS/ML VIAL SQ SCH ×3 (08:00→21:00)
[2017-11-09] MEDS ORDERED: INSULIN ASPART 1,000 UNITS/10 ML VIAL SQ SCH ×2 (08:00)
[2017-11-09] MEDS: TOPIRAMATE 25 MG TAB PO SCH ×2 (08:07→20:40)
[2017-11-09] MEDS: LACTOBACILLUS ACIDOPHILUS TAB PO SCH ×3 (08:07→17:52)
[2017-11-09] MEDS: SERTRALINE HCL 100 MG TAB PO SCH (08:07)
[2017-11-09] MEDS: DOCUSATE SODIUM 50 MG/SENNA 8.6 MG TAB PO SCH ×2 (08:07→19:15)
[2017-11-09] MEDS: FAMOTIDINE 20 MG TAB PO SCH ×2 (08:08→20:40)
[2017-11-09] MEDS: SODIUM CHLORIDE 0.9% FLUSH 10 ML FLUSH IV FLUSH SCH ×2 (08:08→20:42)
[2017-11-09] MEDS: ASPIRIN 81 MG CHEW TAB CHEW SCH (08:08)
[2017-11-09] MEDS ORDERED: MAGNESIUM OXIDE 400 MG TAB PO ONE (08:15)
[2017-11-09] MEDS ORDERED: POTASSIUM CHLORIDE 20 MEQ CONTROLLED RELEASE TAB PO ONE (08:15)
--- NOTE | 2017-11-09 08:15 | HHI.NPPN ---
Subjective Renal Failure: Chronic, Acute, Stage IV Interval History patient has excellent urine output. Needs potassium replaced. Review of Systems General Constitutional: Fatigue Objective Data Data Vital Signs Date Time Temp Pulse Resp B/P (MAP) Pulse Ox O2 Delivery O2 Flow Rate FiO2 11/09/17 06:00 64 11/09/17 04:00 65 11/09/17 04:00 98.1 65 24 159/89 (112) 100 11/09/17 02:00 66 11/09/17 00:00 68 11/09/17 00:00 98.3 68 13 164/92 (116) 95 11/08/17 22:00 69 11/08/17 20:00 71 11/08/17 20:00 98.5 71 14 161/94 (116) 97 11/08/17 18:00 91 11/08/17 16:00 68 11/08/17 16:00 98.6 68 13 161/87 (111) 98 11/08/17 14:00 73 133/76 (95) 99 11/08/17 14:00 73 11/08/17 12:00 98.3 69 16 150/103 (119) 97 11/08/17 12:00 69 11/08/17 10:00 77 16 119/70 (86) 97 11/08/17 10:00 77 11/08/17 09:00 67 16 166/93 (117) 97 -: 11/09/17 0442 11/09/17 0442 Tubes & Lines: Perma-Cath, Kapoor Physical Exam General Appearance: Well Developed, No Acute Distress, Comfortable Pulmonary Resp Exam: Clear Bilaterally Cardiology CV Exam: Regular, Normal Sinus Rhythm Gastrointestinal/Abdomen GI Exam: Soft, Non-Tender, Bowel Sounds Present Musculoskeletal MS Exam: Joints Intact, Normal Tone Integumentary Skin Exam: Warm, Dry, Intact Extremeties Extremities Exam: No Edema, Pedal Pulses Palpable Neurologic Neuro Exam: Alert, Awake, Oriented, Speech Clear, Moving All Extremities Assessment/Plan Discussed Condition With: Patient Assessment Summary: LARS/Acute Renal Failure, Hypertension, Diabetes Mellitus, CKD Stage IV Electrolyte Assessment: Metabolic Acidosis Problem List: (1) Acute renal failure superimposed on stage 4 chronic kidney disease ICD Codes: N17.9 - Acute kidney failure, unspecified; N18.4 - Chronic kidney disease, stage 4 (severe) Status: Acute Plan: He has underlying CKD 4. 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 Most likely has diabetic nephropathy. S/p kapoor placement by urology. Has ureteral stricture. Currently non oliguric. LARS multifactorial. Due to sepsis, DKA, urinary obstruction. HD initialed 11/07. Repeat labs daily. Dialysis only if needed tomorrow. Monitor urine output. Replace potassium. (2) Severe sepsis ICD Codes: A41.9 - Sepsis, unspecified organism; R65.20 - Severe sepsis without septic shock Status: Acute Plan: On Aztreonam and flagyl. cultures in progress. Apparently has tendency for recurrent UTI. (3) Hyperkalemia Status: Acute Plan: Improved. Initially due to reduced GFR and resulting metabolic acidosis, and perhaps Bactrim. Monitor for recurrence (4) Metabolic encephalopathy ICD Codes: G93.41 - Metabolic encephalopathy Plan: Improving. supportive care. Manage underlying conditions. Monitor. (5) Diabetic ketoacidosis ICD Codes: E13.10 - Other specified diabetes mellitus with ketoacidosis without coma Status: Resolved Plan: Seen by endocrinology Insulin pump off Multimodal insulin Problem Qualifiers (1) Diabetic ketoacidosis: Qualified Codes: E10.10 - Type 1 diabetes mellitus with ketoacidosis without coma Olman Rolle MD Nov 09, 2017 08:15
[2017-11-09] MEDS ORDERED: INSULIN DETEMIR 100 UNITS/ML VIAL SQ ONE (09:30)
[2017-11-09] MEDS: cloNIDine HCL 0.1 MG TAB PO PRN ×2 (10:38→20:40)
--- NOTE | 2017-11-09 10:45 | HHI.PR ---
Subjective Remarks Hypoglycemia last night and overnight. Patient reports he did not eat well at lunch but he did have dinner. No other complaints today. Objective Vital Signs Date Time Temp Pulse Resp B/P (MAP) Pulse Ox O2 Delivery O2 Flow Rate FiO2 11/09/17 06:00 64 11/09/17 04:00 65 11/09/17 04:00 98.1 65 24 159/89 (112) 100 11/09/17 02:00 66 11/09/17 00:00 68 11/09/17 00:00 98.3 68 13 164/92 (116) 95 11/08/17 22:00 69 11/08/17 20:00 71 11/08/17 20:00 98.5 71 14 161/94 (116) 97 11/08/17 18:00 91 11/08/17 16:00 68 11/08/17 16:00 98.6 68 13 161/87 (111) 98 11/08/17 14:00 73 133/76 (95) 99 11/08/17 14:00 73 11/08/17 12:00 98.3 69 16 150/103 (119) 97 11/08/17 12:00 69 I/O 11/08/17 11/08/17 11/08/17 11/09/17 11/09/17 11/09/17 07:00 15:00 23:00 07:00 15:00 23:00 Intake Total 440 ml 100 ml 1060 ml 540 ml Output Total 3550 ml 500 ml 1800 ml 2850 ml Balance -3110 ml -400 ml -740 ml -2310 ml Intake Oral 240 ml 960 ml 240 ml IV Total 200 ml 100 ml 100 ml 300 ml Output Urine Total 3550 ml 1800 ml 2850 ml Hemodialysis 500 ml # Bowel Movements 1 1 Result Diagram: 11/09/17 0442 11/09/17 0442 Objective Remarks GENERAL: NAD, A&Ox3 HEAD: Normocephalic. NECK: Supple, trachea midline. No lymphadenopathy. EYES: No scleral icterus. No injection or drainage. CARDIOVASCULAR: Regular rate and rhythm without murmurs, gallops, or rubs. RESPIRATORY: Breath sounds equal bilaterally. No accessory muscle use. GASTROINTESTINAL: Abdomen soft, non-tender, nondistended. MUSCULOSKELETAL: No cyanosis, or edema. SKIN: Warm and dry. NEURO: No focal neurological deficitis. Global weakness. A/P Problem List: (1) Diabetic ketoacidosis ICD Code: E13.10 - Other specified diabetes mellitus with ketoacidosis without coma Status: Resolved Assessment and Plan 37-year-old male admitted secondary to DKA with urinary tract infection and metabolic encephalopathy. Hypoglycemia overnight. Levemir was decreased to 10 units every 12 hours. Scheduled mealtime dosing and high sliding scale are converted to just medium sliding scale for now. Continue to monitor blood sugars. DKA Resolved Follow blood sugars Insulin sliding scale Diabetic diet Long-acting insulin suggested by endocrinology Endocrinology following Blood sugars are improving through time Metabolic encephalopathy Improving Monitor for further improvement Hypotension Shock Resolved Acute renal failure chronic kidney disease stage IV Metabolic acidosis Hypocalcemia Electrolyte derangement Continue to monitor renal function Continue IV hydration Dialysis may be needed now or in the near future Diarrhea illness negative for C. difficile History of MRSA Leukocytosis Severe sepsis hx UTI Continue aztreonam Continue Flagyl Continue Lactinex History of DVT DVT prophylaxis Subcutaneous heparin Discharge Planning Stable for transfer out of ICU Problem Qualifiers (1) Diabetic ketoacidosis: Qualified Codes: E10.10 - Type 1 diabetes mellitus with ketoacidosis without coma Dom Watkins MD Nov 09, 2017 10:45
[2017-11-09] MEDS: INSULIN ASPART SUPPLEMENTAL SCALE SQ SCH ×3 (11:28→20:41)
[2017-11-09] MEDS ORDERED: EPOETIN ALFA 20,000 UNITS/ML VIAL SQ ONE (14:00)
[2017-11-09] MEDS: ONDANSETRON HCL 4 MG/2 ML VIAL IV PUSH PRN ×2 (15:03→22:50)
[2017-11-09 17:39] LABS: HEMOGLOBIN A1C 7.9 % (4.3-6.0)
--- NOTE | 2017-11-09 19:28 | HHI.PR ---
Subjective Remarks The patient has been getting hypoglycemic events. Levemir was decreased last night to 12 units in spite of which he was found to have a low blood sugar in the middle of the night with ornly moderate response to D50. I had decreased his Novolog pre-meal insulin to just 4 units back drown from 6 units last night. During the day the patient has not been eating but at the most 50 % of his food and has been drinking only diet shayy kaz. Otherwise on talking to him he reports mainly neuroglycopenic symptoms when he was to get hypoglycemic predominated by Numbness in his hands and on detailed question it seems he is still having some back ground adrenergic symptoms suggestive of multiple previous hypoglycemic events in the past with a low hypoglycemia threshold. Otherwise his Levemir was decreased more to 10 units BID today. Objective Vital Signs Date Time Temp Pulse Resp B/P (MAP) Pulse Ox O2 Delivery O2 Flow Rate FiO2 11/09/17 18:00 77 11/09/17 16:00 76 9 129/82 (98) 95 11/09/17 14:00 80 11/09/17 12:00 70 11/09/17 12:00 70 8 142/89 (106) 97 11/09/17 11:00 72 9 147/93 (111) 98 11/09/17 10:38 72 10 152/92 (112) 98 11/09/17 10:00 70 12 181/106 (131) 99 11/09/17 09:04 71 14 175/95 (121) 98 11/09/17 09:00 74 11 178/103 (128) 98 11/09/17 08:07 64 10 177/98 (124) 96 11/09/17 08:01 63 9 182/91 (121) 94 11/09/17 08:00 63 10 93 11/09/17 08:00 68 11/09/17 06:00 64 11/09/17 04:00 65 11/09/17 04:00 98.1 65 24 159/89 (112) 100 11/09/17 02:00 66 11/09/17 00:00 68 11/09/17 00:00 98.3 68 13 164/92 (116) 95 11/08/17 22:00 69 11/08/17 20:00 71 11/08/17 20:00 98.5 71 14 161/94 (116) 97 I/O 11/08/17 11/08/17 11/08/17 11/09/17 11/09/17 11/09/17 07:00 15:00 23:00 07:00 15:00 23:00 Intake Total 440 ml 100 ml 1060 ml 540 ml 820 ml Output Total 3550 ml 500 ml 1800 ml 2850 ml 1800 ml Balance -3110 ml -400 ml -740 ml -2310 ml -980 ml Intake Oral 240 ml 960 ml 240 ml 620 ml IV Total 200 ml 100 ml 100 ml 300 ml 200 ml Output Urine Total 3550 ml 1800 ml 2850 ml 1800 ml Hemodialysis 500 ml # Bowel Movements 1 1 Result Diagram: 11/09/17 0442 11/09/17 1319 Other Results Bedside capillary blood glucose levels reviewed. Assessment and Plan Problem List: (1) Hyperglycemia due to type 1 diabetes mellitus ICD Codes: E10.65 - Type 1 diabetes mellitus with hyperglycemia Status: Acute (2) Diabetic ketoacidosis ICD Codes: E13.10 - Other specified diabetes mellitus with ketoacidosis without coma Status: Resolved (3) Diabetes mellitus type 1 Status: Chronic (4) CKD (chronic kidney disease) stage 4, GFR 15-29 ml/min ICD Codes: N18.4 - Chronic kidney disease, stage 4 (severe) Status: Acute (5) Metabolic encephalopathy ICD Codes: G93.41 - Metabolic encephalopathy (6) Hyponatremia ICD Codes: E87.1 - Hypo-osmolality and hyponatremia Status: Acute (7) Diabetic neuropathy Status: Chronic (8) Diabetic retinopathy Status: Chronic (9) Acute renal failure superimposed on stage 4 chronic kidney disease ICD Codes: N17.9 - Acute kidney failure, unspecified; N18.4 - Chronic kidney disease, stage 4 (severe) Status: Acute (10) Hyperkalemia Status: Acute Assessment and Plan Type 1 diabetes status post DKA Hypoglycemia Decreased oral intake The patient is currently only eating half his food at best. Will hold his pre- meal insulin for now and continue with his correction dose. Will also take the liberty to decrease his Levemir further to 10 units QAM and target a blood glucose in the mid 150's for now. In his case secondary causes of hypoglycemia such as adrenal insufficiency is less likely suspect mainly a matter of increased insulin half life due to decreased renal clearance as well as normal pharmacokinetics related to acute illness. Treatment discussed with RN. Advised the patient on the need to do this to avoid hypoglycemia. Contact phone left in case RN need to contact me tonight. Orders written. Thank you for allowing me to participate in the medical management of this patient. Will follow with you. Problem Qualifiers (1) Diabetic ketoacidosis: Qualified Codes: E10.10 - Type 1 diabetes mellitus with ketoacidosis without coma Doug Sow MD Nov 09, 2017 19:28
[2017-11-09] MEDS: PARICALCITOL 1 MCG CAP PO SCH (20:40)
[2017-11-09] MEDS ORDERED: POTASSIUM CHLORIDE 10 MEQ CONTROLLED RELEASE TAB PO ONE (22:45)
[2017-11-09] MEDS: ACETAMINOPHEN 325 MG TAB PO PRN (22:51)
[2017-11-10] VITALS: BP 166/95; PULSE 68; RESP 15; TEMP 98.3; O2SAT 98
[2017-11-10] MEDS: CHLORHEXIDINE GLUCONATE 2 % 1 PACK (2 CLOTHS) TOP SCH (01:27)
[2017-11-10] MEDS: metroNIDAZOLE 500 MG INJ 100 ML IV SCH ×3 (03:31→17:43)
[2017-11-10] MEDS: AZTREONAM INJ 500 MG in SODIUM CHLORIDE 0.9% INJ 100 ML IV SCH ×3 (03:31→21:23)
[2017-11-10] MEDS: cloNIDine HCL 0.1 MG TAB PO PRN (03:40)
[2017-11-10] MEDS: traMADol HCL 50 MG TAB PO PRN ×3 (03:41→21:24)
[2017-11-10 04:00] VITALS: BP 168/93; PULSE 85; RESP 15; TEMP 97.8; O2SAT 98
[2017-11-10 04:37] LABS: AUTOMATED NEUTROPHIL # 2.8 TH/MM3 (1.8-7.7); BASOPHIL % 0.6 % (0.0-2.0); EOSINOPHIL # 0.1 TH/MM3 (0-0.4); EOSINOPHIL % 3.2 % (0.0-4.0); HEMATOCRIT 30.1 % (39.0-51.0); HEMOGLOBIN 10.1 GM/DL (13.0-17.0); LYMPH % 22.3 % (9.0-44.0); LYMPHOCYTE # 0.9 TH/MM3 (1.0-4.8); MEAN CORPUSCULAR HEMOGLOBIN 29.1 PG (27.0-34.0); MEAN CORPUSCULAR HGB CONC 33.5 % (32.0-36.0); MEAN PLATELET VOLUME 8.3 FL (7.0-11.0); MONO % 7.4 % (0.0-8.0); MONOCYTE # 0.3 TH/MM3 (0-0.9); NEUT % 66.5 % (16.0-70.0); PLATELET COUNT 131 TH/MM3 (150-450); RED BLOOD COUNT 3.46 MIL/MM3 (4.50-5.90); RED CELL DISTRIBUTION WIDTH 13.5 % (11.6-17.2); WHITE BLOOD COUNT 4.2 TH/MM3 (4.0-11.0)
[2017-11-10 04:59] LABS: % SATURATION IRON PROFILE 27.2 % (20-50); ALKALINE PHOSPHATASE 85 U/L (45-117); ALT (GPT) 16 U/L (12-78); AST (GOT) 17 U/L (15-37); BICARBONATE 26.6 MEQ/L (21.0-32.0); BLOOD UREA NITROGEN 25 MG/DL (7-18); CALCIUM 7.6 MG/DL (8.5-10.1); CHLORIDE 109 MEQ/L (98-107); GLOMERULAR FILTRATION RATE 21 ML/MIN (>89); GLUCOSE,RANDOM 204 MG/DL (74-106); IRON (FE) 48 MCG/DL (65-175); MAGNESIUM 1.5 MG/DL (1.5-2.5); PHOSPHORUS 2.3 MG/DL (2.5-4.9); SODIUM (NA) 143 MEQ/L (136-145); TOTAL BILIRUBIN ADULT 0.3 MG/DL (0.2-1.0); TOTAL IRON BINDING CAPACITY 176 MCG/DL (250-450); TOTAL PROTEIN 5.1 GM/DL (6.4-8.2)
[2017-11-10] MEDS: HEPARIN SODIUM - SQ 10,000 UNITS/ML VIAL SQ SCH ×2 (05:40→17:43)
[2017-11-10] MEDS: ONDANSETRON HCL 4 MG/2 ML VIAL IV PUSH PRN (05:40)
[2017-11-10] MEDS ORDERED: POTASSIUM CHLORIDE 10 MEQ CONTROLLED RELEASE TAB PO ONE (07:45)
[2017-11-10 08:00] VITALS: BP 164/93; PULSE 77; RESP 18; TEMP 98.2; O2SAT 97
[2017-11-10] MEDS: SERTRALINE HCL 100 MG TAB PO SCH (08:50)
[2017-11-10] MEDS: LACTOBACILLUS ACIDOPHILUS TAB PO SCH ×3 (08:50→17:42)
[2017-11-10] MEDS: DOCUSATE SODIUM 50 MG/SENNA 8.6 MG TAB PO SCH ×2 (08:51→21:23)
[2017-11-10] MEDS: FAMOTIDINE 20 MG TAB PO SCH ×2 (08:51→21:23)
[2017-11-10] MEDS: INSULIN DETEMIR 100 UNITS/ML VIAL SQ SCH ×4 (08:51→21:00)
[2017-11-10] MEDS: ASPIRIN 81 MG CHEW TAB CHEW SCH (08:51)
[2017-11-10] MEDS: POTASSIUM CHLORIDE 20 MEQ CONTROLLED RELEASE TAB PO SCH ×2 (08:51→21:25)
[2017-11-10] MEDS: INSULIN ASPART SUPPLEMENTAL SCALE SQ SCH ×4 (08:52→20:41)
[2017-11-10] MEDS: SODIUM CHLORIDE 0.9% FLUSH 10 ML FLUSH IV FLUSH PRN ×2 (08:52→21:24)
[2017-11-10] MEDS: SODIUM CHLORIDE 0.9% FLUSH 10 ML FLUSH IV FLUSH SCH ×2 (08:53→21:25)
[2017-11-10] MEDS: TOPIRAMATE 25 MG TAB PO SCH ×2 (08:53→21:24)
[2017-11-10 12:00] VITALS: BP 145/86; PULSE 77; RESP 18; TEMP 98.5; O2SAT 96
[2017-11-10] MEDS: MAGNESIUM OXIDE 400 MG TAB PO SCH (12:19)
[2017-11-10] MEDS: FERROUS SULFATE 325 MG (65 MG ELEMENTAL IRON) TAB PO SCH (12:47)
[2017-11-10] MEDS ORDERED: INSULIN HUMAN NPH 1,000 UNITS/10 ML VIAL SQ ONE (13:00)
--- NOTE | 2017-11-10 13:02 | HHI.PR ---
Subjective Remarks No recurrence of hypoglycemia. Blood sugars are trending upward and have crossed into the 300s, suggesting inadequate amounts of insulin at this time. This was anticipated based on the degree of insulin cut when the patient was hypoglycemic. Graduated increases are initiated. Hypokalemia remains in repletion in process. Objective Vital Signs Date Time Temp Pulse Resp B/P (MAP) Pulse Ox O2 Delivery O2 Flow Rate FiO2 11/10/17 12:00 98.5 77 18 145/86 (105) 96 11/10/17 08:00 98.2 77 18 164/93 (116) 97 11/10/17 04:00 97.8 85 15 168/93 (118) 98 11/10/17 00:00 98.3 68 15 166/95 (118) 98 11/09/17 21:53 98.4 70 15 168/98 (121) 99 11/09/17 20:26 96 11/09/17 20:25 96 11/09/17 20:00 71 11/09/17 20:00 98.4 71 13 156/89 (111) 98 11/09/17 18:00 77 11/09/17 16:00 76 9 129/82 (98) 95 11/09/17 14:00 80 I/O 11/09/17 11/09/17 11/09/17 11/10/17 11/10/17 11/10/17 07:00 15:00 23:00 07:00 15:00 23:00 Intake Total 540 ml 1260 ml 560 ml Output Total 2850 ml 2300 ml Balance -2310 ml -1040 ml 560 ml Intake Oral 240 ml 860 ml 360 ml IV Total 300 ml 400 ml 200 ml Output Urine Total 2850 ml 2300 ml # Bowel Movements 1 Result Diagram: 11/10/17 0403 11/10/17 0403 Objective Remarks GENERAL: NAD, A&Ox3 HEAD: Normocephalic. NECK: Supple, trachea midline. No lymphadenopathy. EYES: No scleral icterus. No injection or drainage. CARDIOVASCULAR: Regular rate and rhythm without murmurs, gallops, or rubs. RESPIRATORY: Breath sounds equal bilaterally. No accessory muscle use. GASTROINTESTINAL: Abdomen soft, non-tender, nondistended. MUSCULOSKELETAL: No cyanosis, or edema. SKIN: Warm and dry. NEURO: No focal neurological deficitis. Global weakness. A/P Problem List: (1) Diabetic ketoacidosis ICD Code: E13.10 - Other specified diabetes mellitus with ketoacidosis without coma Status: Resolved Assessment and Plan 37-year-old male admitted secondary to DKA with urinary tract infection and metabolic encephalopathy. Continue to replete potassium levels. Prandial insulin added back at 3 units. Every 24 hours dosing of Levemir increased to 15 units for tomorrow morning. A one-time dose of NPH is provided for 6 units to cover his insulin deficit this evening. Continue low-dose sliding scale. DKA Resolved Follow blood sugars Insulin sliding scale Diabetic diet Long-acting insulin suggested by endocrinology Endocrinology following Blood sugars are improving through time Metabolic encephalopathy Improving Monitor for further improvement Hypotension Shock Resolved Acute renal failure chronic kidney disease stage IV Metabolic acidosis Hypocalcemia Electrolyte derangement Continue to monitor renal function Continue IV hydration Dialysis may be needed now or in the near future Diarrhea illness negative for C. difficile History of MRSA Leukocytosis Severe sepsis hx UTI Continue aztreonam Continue Flagyl Continue Lactinex History of DVT DVT prophylaxis Subcutaneous heparin Discharge Planning Stable for transfer out of ICU Problem Qualifiers (1) Diabetic ketoacidosis: Qualified Codes: E10.10 - Type 1 diabetes mellitus with ketoacidosis without coma Dom Watkins MD Nov 10, 2017 13:02
--- NOTE | 2017-11-10 13:53 | HHI.NPPN ---
Subjective Renal Failure: Chronic, Acute, Stage IV Review of Systems General Constitutional: Fatigue Objective Data Data Vital Signs Date Time Temp Pulse Resp B/P (MAP) Pulse Ox O2 Delivery O2 Flow Rate FiO2 11/10/17 12:00 98.5 77 18 145/86 (105) 96 11/10/17 08:00 98.2 77 18 164/93 (116) 97 11/10/17 04:00 97.8 85 15 168/93 (118) 98 11/10/17 00:00 98.3 68 15 166/95 (118) 98 11/09/17 21:53 98.4 70 15 168/98 (121) 99 11/09/17 20:26 96 11/09/17 20:25 96 11/09/17 20:00 71 11/09/17 20:00 98.4 71 13 156/89 (111) 98 11/09/17 18:00 77 11/09/17 16:00 76 9 129/82 (98) 95 11/09/17 14:00 80 -: 11/10/17 0403 11/10/17 0403 Tubes & Lines: Perma-Cath, Kapoor Physical Exam General Appearance: Well Developed, No Acute Distress, Comfortable Pulmonary Resp Exam: Clear Bilaterally Cardiology CV Exam: Regular, Normal Sinus Rhythm Gastrointestinal/Abdomen GI Exam: Soft, Non-Tender, Bowel Sounds Present Musculoskeletal MS Exam: Joints Intact, Normal Tone Integumentary Skin Exam: Warm, Dry, Intact Extremeties Extremities Exam: No Edema, Pedal Pulses Palpable Neurologic Neuro Exam: Alert, Awake, Oriented, Speech Clear, Moving All Extremities Assessment/Plan Discussed Condition With: Patient Assessment Summary: LARS/Acute Renal Failure, Hypertension, Diabetes Mellitus, CKD Stage IV Electrolyte Assessment: Metabolic Acidosis Problem List: (1) Acute renal failure superimposed on stage 4 chronic kidney disease ICD Codes: N17.9 - Acute kidney failure, unspecified; N18.4 - Chronic kidney disease, stage 4 (severe) Status: Acute Plan: He has underlying CKD 4. 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 Most likely has diabetic nephropathy. S/p kapoor placement by urology. Has ureteral stricture. Currently non oliguric. LARS multifactorial. Due to sepsis, DKA, urinary obstruction. HD initialed 11/07. Repeat labs daily. Dialysis only if needed tomorrow. Monitor urine output. Replace potassium. (2) Severe sepsis ICD Codes: A41.9 - Sepsis, unspecified organism; R65.20 - Severe sepsis without septic shock Status: Acute Plan: On Aztreonam and flagyl. cultures in progress. Apparently has tendency for recurrent UTI. (3) Hyperkalemia Status: Acute Plan: Improved. Initially due to reduced GFR and resulting metabolic acidosis, and perhaps Bactrim. Monitor for recurrence (4) Metabolic encephalopathy ICD Codes: G93.41 - Metabolic encephalopathy Plan: Improving. supportive care. Manage underlying conditions. Monitor. (5) Diabetic ketoacidosis ICD Codes: E13.10 - Other specified diabetes mellitus with ketoacidosis without coma Status: Resolved Plan: Seen by endocrinology Insulin pump off Multimodal insulin Plan patient was seen and examined. Excellent urine output. Potassium replaced. Amlodipine added. Holding dialysis today. Repeat labs tomorrow. If he needs dialysis tomorrow, use one needle in AVF. Problem Qualifiers (1) Diabetic ketoacidosis: Qualified Codes: E10.10 - Type 1 diabetes mellitus with ketoacidosis without coma Olman Rolle MD Nov 10, 2017 13:53
--- NOTE | 2017-11-10 14:05 | HHI.PR ---
Subjective Remarks No more hypoglycemic events. He has had blood glucose levels which have varied up to 300's but has been in the 100 - 200's range most of the time. He has been transferred now to [facility]. Currently by bedside. Feeling better. Has been eating better. On questioning feels better and planning to eat all his food. Currently not known if he will have to continue wtih HD per his report. Otherwise his HBa1c is back and is 7.9 %. Per his previous reports he used to be in the low 7 percentile as an outpatient. Otherwise afebrile with blood pressures that are in [facility] 140 - 150 range systolically. Per patient he has been urinating more. No specific new complaint today. Levemir insulin was decreased yesterday to 8 units per day. Was increased to 15 units this morning. Currently taking 3 units AC of NovoLog. Objective Vital Signs Date Time Temp Pulse Resp B/P (MAP) Pulse Ox O2 Delivery O2 Flow Rate FiO2 11/10/17 12:00 98.5 77 18 145/86 (105) 96 11/10/17 08:00 98.2 77 18 164/93 (116) 97 11/10/17 04:00 97.8 85 15 168/93 (118) 98 11/10/17 00:00 98.3 68 15 166/95 (118) 98 11/09/17 21:53 98.4 70 15 168/98 (121) 99 11/09/17 20:26 96 11/09/17 20:25 96 11/09/17 20:00 71 11/09/17 20:00 98.4 71 13 156/89 (111) 98 11/09/17 18:00 77 11/09/17 16:00 76 9 129/82 (98) 95 11/09/17 14:00 80 I/O 11/09/17 11/09/17 11/09/17 11/10/17 11/10/17 11/10/17 07:00 15:00 23:00 07:00 15:00 23:00 Intake Total 540 ml 1260 ml 560 ml Output Total 2850 ml 2300 ml Balance -2310 ml -1040 ml 560 ml Intake Oral 240 ml 860 ml 360 ml IV Total 300 ml 400 ml 200 ml Output Urine Total 2850 ml 2300 ml # Bowel Movements 1 Result Diagram: 11/10/1740211/10/17402 Other Results bedside capillary blood glucose levels reviewed. Objective Remarks Patient is sitting at bedside eating his food. No distress noted. Able to talk and communicate well. Medications and IVs Active Medications Amlodipine Besylate (Norvasc) 5 mg DAILY PO; Start 11/11/17 at 09:00 Epoetin Pipo (Epogen Inj) 20,000 units ONCE@1400 ONCE SQ Last administered on at 13:42; Admin Dose 20,000 UNITS; Start 11/09/17 at 14:00; Stop 11/09/17 at 14:01; Status DC Ferrous Sulfate (Ferrous Sulfate) 325 mg DAILY PO Last administered on at 12:47; Admin Dose 325 MG; Start 11/10/17 at 12:30 Insulin Aspart (NovoLOG INJ) 3 units TIDAC SQ; Start 11/10/17 at 17:00 Insulin Detemir (Levemir Inj) 15 units DAILY SQ; Start 11/11/17 at 09:00 Assessment and Plan Problem List: (1) Hyperglycemia due to type 1 diabetes mellitus ICD Codes: E10.65 - Type 1 diabetes mellitus with hyperglycemia Status: Acute (2) Diabetic ketoacidosis ICD Codes: E13.10 - Other specified diabetes mellitus with ketoacidosis without coma Status: Resolved (3) Diabetes mellitus type 1 Status: Chronic (4) CKD (chronic kidney disease) stage 4, GFR 15-29 ml/min ICD Codes: N18.4 - Chronic kidney disease, stage 4 (severe) Status: Acute (5) Metabolic encephalopathy ICD Codes: G93.41 - Metabolic encephalopathy (6) Hyponatremia ICD Codes: E87.1 - Hypo-osmolality and hyponatremia Status: Acute (7) Diabetic neuropathy Status: Chronic (8) Diabetic retinopathy Status: Chronic (9) Acute renal failure superimposed on stage 4 chronic kidney disease ICD Codes: N17.9 - Acute kidney failure, unspecified; N18.4 - Chronic kidney disease, stage 4 (severe) Status: Acute (10) Hyperkalemia Status: Acute Assessment and Plan Type 1 diabetes status post DKA Hypoglycemia Decreased oral intake The patient is currently eating more. Agree with increase in Basal insulin. Would recommend to split the dose to give more maneuverability in case of change in his clinical status. Recommend to split dose to 8 Units BID and to adjust as needed tomorrow AM. Also recommend to increase his dose of NovoLog to 4 units AC and agree with keeping his sliding scale as is. have taken the liberty to write the orders. Thank you for allowing me to participate in the medical management of this patient. Will follow with you. Problem Qualifiers (1) Diabetic ketoacidosis: Qualified Codes: E10.10 - Type 1 diabetes mellitus with ketoacidosis without coma Doug Sow MD Nov 10, 2017 14:05
[2017-11-10 17:00] VITALS: BP 116/70; PULSE 81; RESP 16; TEMP 98.4; O2SAT 96
[2017-11-10] MEDS: INSULIN ASPART 1,000 UNITS/10 ML VIAL SQ SCH (17:00)
[2017-11-10] MEDS ORDERED: INSULIN ASPART 1,000 UNITS/10 ML VIAL SQ SCH (17:00)
[2017-11-10] MEDS ORDERED: PROCHLORPERAZINE INJ 10 MG/2 ML VIAL IV PUSH ONE (19:30)
[2017-11-10 20:04] VITALS: BP 147/87; PULSE 78; RESP 16; TEMP 98.8; O2SAT 97
[2017-11-10] MEDS: PARICALCITOL 1 MCG CAP PO SCH (21:23)
[2017-11-10] MEDS: diphenhydrAMINE HCL 25 MG CAP PO PRN (21:23)
[2017-11-11 00:04] VITALS: BP 176/99; PULSE 70; RESP 20; TEMP 97.6; O2SAT 97
[2017-11-11] MEDS: CHLORHEXIDINE GLUCONATE 2 % 1 PACK (2 CLOTHS) TOP SCH (00:35)
[2017-11-11] MEDS: traMADol HCL 50 MG TAB PO PRN ×3 (01:15→22:19)
[2017-11-11] MEDS: cloNIDine HCL 0.1 MG TAB PO PRN (01:15)
[2017-11-11] MEDS: ONDANSETRON HCL 4 MG/2 ML VIAL IV PUSH PRN (01:16)
[2017-11-11] MEDS: AZTREONAM INJ 500 MG in SODIUM CHLORIDE 0.9% INJ 100 ML IV SCH ×3 (03:22→22:10)
[2017-11-11] MEDS: metroNIDAZOLE 500 MG INJ 100 ML IV SCH ×3 (03:22→11:54)
[2017-11-11 04:04] VITALS: BP 176/92; PULSE 71; RESP 16; TEMP 98; O2SAT 98
[2017-11-11] MEDS: HEPARIN SODIUM - SQ 10,000 UNITS/ML VIAL SQ SCH ×2 (05:45→18:58)
[2017-11-11] MEDS: INSULIN ASPART SUPPLEMENTAL SCALE SQ SCH ×4 (08:00→21:00)
[2017-11-11 08:12] LABS: BASOPHIL % 0.7 % (0.0-2.0); EOSINOPHIL # 0.2 TH/MM3 (0-0.4); EOSINOPHIL % 2.9 % (0.0-4.0); HEMOGLOBIN 9.9 GM/DL (13.0-17.0); LYMPH % 31.5 % (9.0-44.0); LYMPHOCYTE # 1.6 TH/MM3 (1.0-4.8); MEAN CELL VOLUME 87.7 FL (80.0-100.0); MEAN CORPUSCULAR HGB CONC 33.1 % (32.0-36.0); MEAN PLATELET VOLUME 8.3 FL (7.0-11.0); MONO % 7.9 % (0.0-8.0); MONOCYTE # 0.4 TH/MM3 (0-0.9); PLATELET COUNT 164 TH/MM3 (150-450); RED BLOOD COUNT 3.42 MIL/MM3 (4.50-5.90); RED CELL DISTRIBUTION WIDTH 13.2 % (11.6-17.2); WHITE BLOOD COUNT 5.2 TH/MM3 (4.0-11.0)
[2017-11-11 08:14] LABS: ALT (GPT) 16 U/L (12-78); AST (GOT) 17 U/L (15-37); BICARBONATE 25.7 MEQ/L (21.0-32.0); BLOOD UREA NITROGEN 30 MG/DL (7-18); CALCIUM 7.9 MG/DL (8.5-10.1); CHLORIDE 111 MEQ/L (98-107); CREATININE 3.56 MG/DL (0.60-1.30); GLOMERULAR FILTRATION RATE 20 ML/MIN (>89); GLUCOSE,RANDOM 119 MG/DL (74-106); SODIUM (NA) 145 MEQ/L (136-145)
[2017-11-11 08:16] LABS: ALKALINE PHOSPHATASE 85 U/L (45-117); TOTAL BILIRUBIN ADULT 0.2 MG/DL (0.2-1.0); TOTAL PROTEIN 4.9 GM/DL (6.4-8.2)
[2017-11-11 08:30] VITALS: BP 165/93; RESP 20; TEMP 97.4; O2SAT 98
[2017-11-11] MEDS ORDERED: INSULIN DETEMIR 100 UNITS/ML VIAL SQ SCH (09:00)
[2017-11-11] MEDS: FAMOTIDINE 20 MG TAB PO SCH ×2 (09:00→22:11)
[2017-11-11] MEDS: INSULIN ASPART 1,000 UNITS/10 ML VIAL SQ SCH ×3 (11:41→17:00)
[2017-11-11] MEDS: INSULIN DETEMIR 100 UNITS/ML VIAL SQ SCH ×2 (11:42→22:11)
[2017-11-11] MEDS: DOCUSATE SODIUM 50 MG/SENNA 8.6 MG TAB PO SCH ×2 (11:44→22:11)
[2017-11-11] MEDS: TOPIRAMATE 25 MG TAB PO SCH ×2 (11:44→22:11)
[2017-11-11] MEDS: ASPIRIN 81 MG CHEW TAB CHEW SCH (11:44)
[2017-11-11] MEDS: LACTOBACILLUS ACIDOPHILUS TAB PO SCH ×3 (11:44→18:58)
[2017-11-11] MEDS: SERTRALINE HCL 100 MG TAB PO SCH (11:45)
[2017-11-11] MEDS: POTASSIUM CHLORIDE 20 MEQ CONTROLLED RELEASE TAB PO SCH (11:45)
[2017-11-11] MEDS: FERROUS SULFATE 325 MG (65 MG ELEMENTAL IRON) TAB PO SCH (11:46)
[2017-11-11] MEDS: MAGNESIUM OXIDE 400 MG TAB PO SCH (11:52)
[2017-11-11] MEDS: SODIUM CHLORIDE 0.9% FLUSH 10 ML FLUSH IV FLUSH SCH ×2 (11:57→22:24)
[2017-11-11 12:37] VITALS: BP 190/104; PULSE 69; RESP 20; TEMP 98.6; O2SAT 98
--- NOTE | 2017-11-11 13:06 | HHI.NPPN ---
Subjective Renal Failure: Chronic, Acute, Stage IV History of Present Illness This is a patient who is 37 years of age, presented to the [place] ER with altered level of consciousness, profound hyperglycemia and DKA. He is acutely ill, and is not in a position to provide a detailed history. He was noted to have blood glucose of more than 1400, serum potassium of 6.8, serum Na of 117 ( pseudohyponatremia), and severely depressed bicarbonate. He reports that he fell sick yesterday when he developed vomiting. He appears to have stage IV CKD. Has had an AVF placed in the right arm(never used, not ready for use). He is s/p CVA, blindness in the right eye, diabetic retinopathy. He had received about 7 liters of IVF, but has been unable to empty bladder. Attempts at bladder catheterization have failed so far. Additional Remarks Denies any SOB. Reports nausea but no different than normal. (Jazlyn De Anda) Review of Systems General Constitutional: Fatigue (Jazlyn De Anda) Gastrointestinal Gastrointestinal: Abdominal Pain GI Remarks nausea (Jazlyn De Anda) Objective Data Data 11/11/17 11/12/17 19:00 07:00 Intake Total 240 ml Output Total 800 ml Balance -560 ml Intake Oral 240 ml Output Urine Total 800 ml Vital Signs Date Time Temp Pulse Resp B/P (MAP) Pulse Ox O2 Delivery O2 Flow Rate FiO2 11/11/17 12:37 98.6 69 20 190/104 (132) 98 11/11/17 08:30 97.4 20 165/93 (117) 98 11/11/17 04:04 98.0 71 16 176/92 (120) 98 11/11/17 00:04 97.6 70 20 176/99 (124) 97 11/10/17 20:04 98.8 78 16 147/87 (107) 97 11/10/17 18:44 18 11/10/17 17:00 98.4 81 16 116/70 (85) 96 (Jazlyn De Anda) -: 11/11/17 0720 11/11/17 0720 Imaging Last Impressions Renal Ultrasound 11/07/17 0000 Signed Impressions: Service Date/Time: Tuesday, November 07, 2017 17:08 - CONCLUSION: 1. Echogenic kidneys consistent with medical renal disease. 2. Bilateral benign renal cysts. Fabricio Isaac MD Catheter Placement X-Ray 11/07/17 0000 Signed Impressions: Service Date/Time: Tuesday, November 07, 2017 14:27 - CONCLUSION: Uncomplicated PermaCath placement as above. Coy Goldsmith MD Chest X-Ray 11/05/17 0000 Signed Impressions: Service Date/Time: Sunday, November 05, 2017 16:07 - CONCLUSION: Decreased lung volumes and possible diffuse developing interstitial infiltrates. Jad Sanchez MD Tubes & Lines: Perma-Cath, Kapoor (GellermannJazlyn M. MARKETING COMMUNICATIONS SPECIALIST) Physical Exam General Appearance: Well Developed, No Acute Distress, Comfortable (Gellermann,Jazlyn M. MARKETING COMMUNICATIONS SPECIALIST) Pulmonary Resp Exam: Clear Bilaterally (Gellermann,Jazlyn M. MARKETING COMMUNICATIONS SPECIALIST) Cardiology CV Exam: Regular, Normal Sinus Rhythm (GellermannJazlyn M. MARKETING COMMUNICATIONS SPECIALIST) Gastrointestinal/Abdomen GI Exam: Soft, Non-Tender, Bowel Sounds Present (GellermannJazlyn M. MARKETING COMMUNICATIONS SPECIALIST) Musculoskeletal MS Exam: Normal Tone (GellermannJazlyn M. MARKETING COMMUNICATIONS SPECIALIST) Integumentary Skin Exam: Warm, Dry, Intact (Gellermann,Jazlyn M. MARKETING COMMUNICATIONS SPECIALIST) Extremeties Extremities Exam: No Edema (Gellermann,Jazlyn M. MARKETING COMMUNICATIONS SPECIALIST) Neurologic Neuro Exam: Alert, Awake, Oriented, Speech Clear (Gellermann,Jazlyn M. MARKETING COMMUNICATIONS SPECIALIST) Psychiatric Psych Exam: Appropriate Responses (GellermannJazlyn M. MARKETING COMMUNICATIONS SPECIALIST) Assessment/Plan Discussed Condition With: Patient Assessment Summary: LARS/Acute Renal Failure, Hypertension, Diabetes Mellitus, CKD Stage IV Electrolyte Assessment: Metabolic Acidosis Problem List: (1) Acute renal failure superimposed on stage 4 chronic kidney disease ICD Codes: N17.9 - Acute kidney failure, unspecified; N18.4 - Chronic kidney disease, stage 4 (severe) Status: Acute Plan: He has underlying CKD 4. 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 Most likely has diabetic nephropathy. S/p kapoor placement by urology. Has ureteral stricture. Currently non oliguric. LARS multifactorial. Due to sepsis, DKA, urinary obstruction. HD initialed 11/07 Plan Repeat labs daily. Dialysis only if needed Monitor urine output and renal panel HD on hold patient continues to have good urinary output creatinine at 3.56 and potassium 3.6 (2) Severe sepsis ICD Codes: A41.9 - Sepsis, unspecified organism; R65.20 - Severe sepsis without septic shock Status: Acute Plan: On Aztreonam and flagyl. cultures in progress. Apparently has tendency for recurrent UTI. (3) Hyperkalemia Status: Acute Plan: Improved. Initially due to reduced GFR and resulting metabolic acidosis, and perhaps Bactrim. Monitor for recurrence (4) Metabolic encephalopathy ICD Codes: G93.41 - Metabolic encephalopathy Plan: Improving. supportive care. Manage underlying conditions. Monitor. (5) Diabetic ketoacidosis ICD Codes: E13.10 - Other specified diabetes mellitus with ketoacidosis without coma Status: Resolved Plan: Seen by endocrinology Insulin pump off Multimodal insulin (Jazlyn De Anda) Problem List: (1) Acute renal failure superimposed on stage 4 chronic kidney disease ICD Codes: N17.9 - Acute kidney failure, unspecified; N18.4 - Chronic kidney disease, stage 4 (severe) Status: Acute Plan: He has underlying CKD 4. 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 Most likely has diabetic nephropathy. S/p kapoor placement by urology. Has ureteral stricture. Currently non oliguric. LARS multifactorial. Due to sepsis, DKA, urinary obstruction. HD initialed 11/07 Plan Repeat labs daily. Dialysis only if needed Monitor urine output and renal panel HD on hold patient continues to have good urinary output creatinine at 3.56 and potassium 3.6 Patient seen and examined, agree with above. HD on hold, no urgent need for dialysis. Watch for renal recovery. (2) Severe sepsis ICD Codes: A41.9 - Sepsis, unspecified organism; R65.20 - Severe sepsis without septic shock Status: Acute Plan: On Aztreonam and flagyl. cultures in progress. Apparently has tendency for recurrent UTI. (3) Hyperkalemia Status: Acute Plan: Improved. Initially due to reduced GFR and resulting metabolic acidosis, and perhaps Bactrim. Monitor for recurrence (4) Metabolic encephalopathy ICD Codes: G93.41 - Metabolic encephalopathy Plan: Improving. supportive care. Manage underlying conditions. Monitor. (5) Diabetic ketoacidosis ICD Codes: E13.10 - Other specified diabetes mellitus with ketoacidosis without coma Status: Resolved Plan: Seen by endocrinology Insulin pump off Multimodal insulin (Jackie Gifford MD) Problem Qualifiers (1) Diabetic ketoacidosis: Qualified Codes: E10.10 - Type 1 diabetes mellitus with ketoacidosis without coma Jazlyn De Anda Nov 11, 2017 13:06 Jackie Gifford MD Nov 12, 2017 14:34
--- NOTE | 2017-11-11 14:23 | HHI.PR ---
Subjective Remarks More stable blood sugars. No new complaints from patient. Renal function has improved, more monitoring needed prior to nephrology clearance. Objective Vital Signs Date Time Temp Pulse Resp B/P (MAP) Pulse Ox O2 Delivery O2 Flow Rate FiO2 11/11/17 12:37 98.6 69 20 190/104 (132) 98 11/11/17 08:30 97.4 20 165/93 (117) 98 11/11/17 04:04 98.0 71 16 176/92 (120) 98 11/11/17 00:04 97.6 70 20 176/99 (124) 97 11/10/17 20:04 98.8 78 16 147/87 (107) 97 11/10/17 18:44 18 11/10/17 17:00 98.4 81 16 116/70 (85) 96 I/O 11/10/17 11/10/17 11/10/17 11/11/17 11/11/17 11/11/17 07:00 15:00 23:00 07:00 15:00 23:00 Intake Total 560 ml 1241 ml 200 ml 240 ml Output Total 250 ml 950 ml 800 ml Balance 560 ml 991 ml -750 ml -560 ml Intake Oral 360 ml 1041 ml 240 ml IV Total 200 ml 200 ml 200 ml Output Urine Total 250 ml 950 ml 800 ml # Voids 1 # Bowel Movements 1 1 Result Diagram: 11/11/1771911/11/17719 Objective Remarks GENERAL: NAD, A&Ox3 HEAD: Normocephalic. NECK: Supple, trachea midline. No lymphadenopathy. EYES: No scleral icterus. No injection or drainage. CARDIOVASCULAR: Regular rate and rhythm without murmurs, gallops, or rubs. RESPIRATORY: Breath sounds equal bilaterally. No accessory muscle use. GASTROINTESTINAL: Abdomen soft, non-tender, nondistended. MUSCULOSKELETAL: No cyanosis, or edema. SKIN: Warm and dry. NEURO: No focal neurological deficitis. Global weakness. A/P Problem List: (1) Diabetic ketoacidosis ICD Code: E13.10 - Other specified diabetes mellitus with ketoacidosis without coma Status: Resolved Assessment and Plan 37-year-old male admitted secondary to DKA with urinary tract infection and metabolic encephalopathy. Continue to monitor renal function. Labs are reviewed. Renal function shows improved stability compared to when he was in acute renal failure. Labs ordered for further monitoring of renal function. Blood sugars have improved control today. DKA Resolved Follow blood sugars Insulin sliding scale Diabetic diet Long-acting insulin suggested by endocrinology Endocrinology following Blood sugars are improving through time Metabolic encephalopathy Improving Monitor for further improvement Hypotension Shock Resolved Acute renal failure chronic kidney disease stage IV Metabolic acidosis Hypocalcemia Electrolyte derangement Continue to monitor renal function Continue IV hydration 2 Dialysis sessions provided Now showing signs of improved stability Monitor further Diarrhea illness negative for C. difficile History of MRSA Leukocytosis Severe sepsis hx UTI Continue aztreonam Continue Flagyl Continue Lactinex History of DVT DVT prophylaxis Subcutaneous heparin Discharge Planning Demonstrated renal stability needed prior to discharge consideration Problem Qualifiers (1) Diabetic ketoacidosis: Qualified Codes: E10.10 - Type 1 diabetes mellitus with ketoacidosis without coma Dom Watkins MD Nov 11, 2017 14:23
[2017-11-11 17:48] VITALS: BP 160/97; PULSE 78; RESP 20; TEMP 98.1; O2SAT 98
[2017-11-11 20:00] VITALS: BP 180/79; PULSE 67; RESP 17; TEMP 97.8; O2SAT 99
[2017-11-11] MEDS: PARICALCITOL 1 MCG CAP PO SCH (22:23)
[2017-11-12] VITALS: BP 120/80; PULSE 81; RESP 20; TEMP 96.7; O2SAT 99
[2017-11-12 04:00] VITALS: BP 141/87; PULSE 76; RESP 20; TEMP 97; O2SAT 98
[2017-11-12] MEDS: CHLORHEXIDINE GLUCONATE 2 % 1 PACK (2 CLOTHS) TOP SCH (04:00)
[2017-11-12] MEDS: AZTREONAM INJ 500 MG in SODIUM CHLORIDE 0.9% INJ 100 ML IV SCH ×3 (04:07→21:37)
[2017-11-12] MEDS: metroNIDAZOLE 500 MG INJ 100 ML IV SCH ×3 (04:07→18:01)
[2017-11-12] MEDS: traMADol HCL 50 MG TAB PO PRN ×3 (04:14→14:45)
[2017-11-12] MEDS: HEPARIN SODIUM - SQ 10,000 UNITS/ML VIAL SQ SCH ×2 (04:15→18:01)
[2017-11-12 06:15] LABS: AUTOMATED NEUTROPHIL # 5.1 TH/MM3 (1.8-7.7); BASOPHIL % 0.5 % (0.0-2.0); EOSINOPHIL # 0.1 TH/MM3 (0-0.4); EOSINOPHIL % 1.7 % (0.0-4.0); HEMATOCRIT 31.1 % (39.0-51.0); HEMOGLOBIN 10.4 GM/DL (13.0-17.0); LYMPH % 23.6 % (9.0-44.0); LYMPHOCYTE # 1.8 TH/MM3 (1.0-4.8); MEAN CELL VOLUME 87.3 FL (80.0-100.0); MEAN CORPUSCULAR HEMOGLOBIN 29.2 PG (27.0-34.0); MEAN CORPUSCULAR HGB CONC 33.4 % (32.0-36.0); MEAN PLATELET VOLUME 8.2 FL (7.0-11.0); MONO % 7.3 % (0.0-8.0); MONOCYTE # 0.6 TH/MM3 (0-0.9); NEUT % 66.9 % (16.0-70.0); PLATELET COUNT 192 TH/MM3 (150-450); RED BLOOD COUNT 3.57 MIL/MM3 (4.50-5.90); RED CELL DISTRIBUTION WIDTH 13.4 % (11.6-17.2); WHITE BLOOD COUNT 7.6 TH/MM3 (4.0-11.0)
[2017-11-12 06:56] LABS: ALBUMIN 2.1 GM/DL (3.4-5.0); ALKALINE PHOSPHATASE 90 U/L (45-117); ALT (GPT) 30 U/L (12-78); AST (GOT) 41 U/L (15-37); BICARBONATE 25.5 MEQ/L (21.0-32.0); BLOOD UREA NITROGEN 29 MG/DL (7-18); CALCIUM 8.3 MG/DL (8.5-10.1); CHLORIDE 109 MEQ/L (98-107); CREATININE 3.31 MG/DL (0.60-1.30); GLOMERULAR FILTRATION RATE 21 ML/MIN (>89); GLUCOSE,RANDOM 76 MG/DL (74-106); SODIUM (NA) 143 MEQ/L (136-145); TOTAL BILIRUBIN ADULT 0.2 MG/DL (0.2-1.0); TOTAL PROTEIN 5.3 GM/DL (6.4-8.2)
[2017-11-12 08:00] VITALS: BP 154/92; PULSE 71; RESP 15; TEMP 98.3; O2SAT 98
[2017-11-12] MEDS: INSULIN ASPART 1,000 UNITS/10 ML VIAL SQ SCH ×3 (08:00→17:38)
[2017-11-12] MEDS: INSULIN ASPART SUPPLEMENTAL SCALE SQ SCH ×4 (08:00→21:47)
[2017-11-12] MEDS: INSULIN DETEMIR 100 UNITS/ML VIAL SQ SCH ×2 (09:00→21:41)
[2017-11-12] MEDS: SERTRALINE HCL 100 MG TAB PO SCH (09:53)
[2017-11-12] MEDS: FAMOTIDINE 20 MG TAB PO SCH ×2 (09:53→21:38)
[2017-11-12] MEDS: FERROUS SULFATE 325 MG (65 MG ELEMENTAL IRON) TAB PO SCH (09:54)
[2017-11-12] MEDS: ASPIRIN 81 MG CHEW TAB CHEW SCH (09:54)
[2017-11-12] MEDS: LACTOBACILLUS ACIDOPHILUS TAB PO SCH ×3 (09:54→17:39)
[2017-11-12] MEDS: TOPIRAMATE 25 MG TAB PO SCH ×2 (09:54→21:39)
[2017-11-12] MEDS: SODIUM CHLORIDE 0.9% FLUSH 10 ML FLUSH IV FLUSH SCH ×2 (09:54→21:38)
[2017-11-12] MEDS: DOCUSATE SODIUM 50 MG/SENNA 8.6 MG TAB PO SCH ×2 (09:55→21:00)
[2017-11-12 12:00] VITALS: BP 169/99; PULSE 75; RESP 16; TEMP 98.2; O2SAT 98
--- NOTE | 2017-11-12 14:47 | HHI.PR ---
Subjective Remarks Hypoglycemic early this morning. Patient reports that he did not eat dinner due to nausea, he cannot recall receiving any insulin when he skipped his meal. Renal function continues to improve. Objective Vital Signs Date Time Temp Pulse Resp B/P (MAP) Pulse Ox O2 Delivery O2 Flow Rate FiO2 11/12/17 12:00 98.2 75 16 169/99 (122) 98 11/12/17 08:00 98.3 71 15 154/92 (112) 98 11/12/17 04:00 97.0 76 20 141/87 (105) 98 11/12/17 00:00 96.7 81 20 120/80 (93) 99 11/11/17 20:00 97.8 67 17 180/79 (112) 99 11/11/17 17:48 98.1 78 20 160/97 (118) 98 I/O 11/11/17 11/11/17 11/11/17 11/12/17 11/12/17 11/12/17 07:00 15:00 23:00 07:00 15:00 23:00 Intake Total 200 ml 240 ml 480 ml 540 ml Output Total 950 ml 800 ml 1800 ml Balance -750 ml -560 ml -1320 ml 540 ml Intake Oral 240 ml 480 ml 540 ml IV Total 200 ml Output Urine Total 950 ml 800 ml 1800 ml # Voids 2 # Bowel Movements 1 Result Diagram: 11/12/1744711/12/17447 Objective Remarks GENERAL: NAD, A&Ox3 HEAD: Normocephalic. NECK: Supple, trachea midline. No lymphadenopathy. EYES: No scleral icterus. No injection or drainage. CARDIOVASCULAR: Regular rate and rhythm without murmurs, gallops, or rubs. RESPIRATORY: Breath sounds equal bilaterally. No accessory muscle use. GASTROINTESTINAL: Abdomen soft, non-tender, nondistended. MUSCULOSKELETAL: No cyanosis, or edema. SKIN: Warm and dry. NEURO: No focal neurological deficitis. Global weakness. A/P Problem List: (1) Diabetic ketoacidosis ICD Code: E13.10 - Other specified diabetes mellitus with ketoacidosis without coma Status: Resolved Assessment and Plan 37-year-old male admitted secondary to DKA with urinary tract infection and metabolic encephalopathy. Renal function improving. Continue to monitor renal function. Labs are reviewed. DKA Resolved Follow blood sugars Insulin sliding scale Diabetic diet Endocrinology following Metabolic encephalopathy Improving Monitor for further improvement Hypotension Shock Resolved Acute renal failure chronic kidney disease stage IV Metabolic acidosis Hypocalcemia Electrolyte derangement Continue to monitor renal function Continue IV hydration 2 Dialysis sessions provided Now showing signs of improved stability Monitor further Diarrhea illness negative for C. difficile History of MRSA Leukocytosis Severe sepsis hx UTI Continue aztreonam Continue Flagyl Continue Lactinex History of DVT DVT prophylaxis Subcutaneous heparin Discharge Planning Demonstrated renal stability needed prior to discharge consideration Problem Qualifiers (1) Diabetic ketoacidosis: Qualified Codes: E10.10 - Type 1 diabetes mellitus with ketoacidosis without coma Dom Watkins MD Nov 12, 2017 14:47
[2017-11-12 16:00] VITALS: BP 139/81; PULSE 82; RESP 18; TEMP 98.3; O2SAT 98
[2017-11-12] MEDS: ACETAMINOPHEN/HYDROcodone 325 MG/10 MG TAB PO PRN ×2 (16:55→21:54)
[2017-11-12 20:00] VITALS: BP 105/57; PULSE 82; RESP 20; TEMP 98.6; O2SAT 96
[2017-11-12] MEDS: PARICALCITOL 1 MCG CAP PO SCH (21:39)
[2017-11-12] MEDS: diphenhydrAMINE HCL 25 MG CAP PO PRN (21:54)
[2017-11-13] VITALS: BP 138/86; PULSE 76; RESP 12; TEMP 98.4; O2SAT 98
[2017-11-13] MEDS: CHLORHEXIDINE GLUCONATE 2 % 1 PACK (2 CLOTHS) TOP SCH (03:57)
[2017-11-13 04:00] VITALS: BP 121/75; PULSE 82; RESP 12; TEMP 98.7; O2SAT 97
[2017-11-13] MEDS: metroNIDAZOLE 500 MG INJ 100 ML IV SCH ×2 (04:06→10:21)
[2017-11-13] MEDS: ACETAMINOPHEN/HYDROcodone 325 MG/10 MG TAB PO PRN ×3 (04:06→22:13)
[2017-11-13 04:55] LABS: AUTOMATED NEUTROPHIL # 3.4 TH/MM3 (1.8-7.7); BASOPHIL % 0.4 % (0.0-2.0); EOSINOPHIL # 0.1 TH/MM3 (0-0.4); EOSINOPHIL % 2.1 % (0.0-4.0); HEMATOCRIT 30.8 % (39.0-51.0); HEMOGLOBIN 10.3 GM/DL (13.0-17.0); LYMPH % 38.9 % (9.0-44.0); LYMPHOCYTE # 2.6 TH/MM3 (1.0-4.8); MEAN CELL VOLUME 87.6 FL (80.0-100.0); MEAN CORPUSCULAR HEMOGLOBIN 29.2 PG (27.0-34.0); MEAN CORPUSCULAR HGB CONC 33.3 % (32.0-36.0); MEAN PLATELET VOLUME 7.8 FL (7.0-11.0); MONO % 7.1 % (0.0-8.0); MONOCYTE # 0.5 TH/MM3 (0-0.9); NEUT % 51.5 % (16.0-70.0); PLATELET COUNT 222 TH/MM3 (150-450); RED BLOOD COUNT 3.52 MIL/MM3 (4.50-5.90); RED CELL DISTRIBUTION WIDTH 13.3 % (11.6-17.2); WHITE BLOOD COUNT 6.6 TH/MM3 (4.0-11.0)
[2017-11-13 05:19] LABS: ALBUMIN 2.1 GM/DL (3.4-5.0); CALCIUM 8.5 MG/DL (8.5-10.1); CREATININE 3.34 MG/DL (0.60-1.30); PHOSPHORUS 2.9 MG/DL (2.5-4.9)
[2017-11-13] MEDS: AZTREONAM INJ 500 MG in SODIUM CHLORIDE 0.9% INJ 100 ML IV SCH ×2 (05:21→13:17)
[2017-11-13] MEDS: HEPARIN SODIUM - SQ 10,000 UNITS/ML VIAL SQ SCH ×2 (06:36→16:55)
[2017-11-13 08:00] VITALS: BP 134/85; PULSE 75; RESP 16; TEMP 98.2; O2SAT 97
[2017-11-13] MEDS: INSULIN ASPART 1,000 UNITS/10 ML VIAL SQ SCH ×3 (08:00→16:55)
[2017-11-13] MEDS: INSULIN ASPART SUPPLEMENTAL SCALE SQ SCH ×4 (08:00→22:11)
[2017-11-13] MEDS: TOPIRAMATE 25 MG TAB PO SCH ×2 (08:29→22:11)
[2017-11-13] MEDS: ASPIRIN 81 MG CHEW TAB CHEW SCH (08:29)
[2017-11-13] MEDS: FAMOTIDINE 20 MG TAB PO SCH ×2 (08:29→22:13)
[2017-11-13] MEDS: LACTOBACILLUS ACIDOPHILUS TAB PO SCH ×3 (08:29→16:54)
[2017-11-13] MEDS: FERROUS SULFATE 325 MG (65 MG ELEMENTAL IRON) TAB PO SCH (08:29)
[2017-11-13] MEDS: SERTRALINE HCL 100 MG TAB PO SCH (08:29)
[2017-11-13] MEDS: SODIUM CHLORIDE 0.9% FLUSH 10 ML FLUSH IV FLUSH SCH ×2 (08:30→21:00)
[2017-11-13] MEDS: DOCUSATE SODIUM 50 MG/SENNA 8.6 MG TAB PO SCH ×2 (08:30→21:00)
[2017-11-13] MEDS: INSULIN DETEMIR 100 UNITS/ML VIAL SQ SCH (08:31)
--- NOTE | 2017-11-13 11:32 | HHI.NPPN ---
Subjective Renal Failure: Chronic, Acute, Stage IV Interval History Renal function is stable. Excellent urine output. He did not require dialysis over the weekend. (Katelyn Holbrook) Review of Systems General Constitutional: Fatigue (Katelyn Holbrook) Gastrointestinal Gastrointestinal: Abdominal Pain GI Remarks nausea (Katelyn Holbrook) Objective Data Data Vital Signs Date Time Temp Pulse Resp B/P (MAP) Pulse Ox O2 Delivery O2 Flow Rate FiO2 11/13/17 08:00 98.2 75 16 134/85 (101) 97 11/13/17 04:00 98.7 82 12 121/75 (90) 97 11/13/17 00:00 98.4 76 12 138/86 (103) 98 11/12/17 20:00 98.6 82 20 105/57 (73) 96 11/12/17 16:00 98.3 82 18 139/81 (100) 98 11/12/17 12:00 98.2 75 16 169/99 (122) 98 (Katelyn Holbrook) -: 11/13/17 0413 11/13/17 0413 Tubes & Lines: Perma-Cath, Kapoor (Katelyn Holbrook) Physical Exam General Appearance: Well Developed, No Acute Distress, Comfortable (Katelyn Holbrook) Pulmonary Resp Exam: Clear Bilaterally, Breath Sounds Equal (Katelyn Holbrook) Cardiology CV Exam: Regular, Normal Sinus Rhythm (Katelyn Holbrook) Gastrointestinal/Abdomen GI Exam: Soft, Non-Tender, Bowel Sounds Present (Katelyn Holbrook) Musculoskeletal MS Exam: Joints Intact, Normal Tone (Katelyn Holbrook) Integumentary Skin Exam: Warm, Dry, Intact (Katelyn Holbrook) Extremeties Extremities Exam: No Edema (Katelyn Holbrook) Neurologic Neuro Exam: Alert, Awake, Oriented, Speech Clear (Katelyn Holbrook) Psychiatric Psych Exam: Appropriate Responses (Katelyn Holbrook) Assessment/Plan Discussed Condition With: Patient Assessment Summary: LARS/Acute Renal Failure, Hypertension, Diabetes Mellitus, CKD Stage IV Electrolyte Assessment: Metabolic Acidosis Problem List: (1) Acute renal failure superimposed on stage 4 chronic kidney disease ICD Codes: N17.9 - Acute kidney failure, unspecified; N18.4 - Chronic kidney disease, stage 4 (severe) Status: Acute Plan: He has underlying CKD 4. 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 Most likely has diabetic nephropathy. S/p kapoor placement by urology. Has ureteral stricture. Currently non oliguric. Kapoor can be removed at discharge per urology LARS multifactorial. Due to sepsis, DKA, urinary obstruction. HD on 11/07 and 11/08 His renal function improved, is stable Remove PermCath today, has AVF that appears ready for use if needed After discharge he will follow with his hardening machine operator within the next month. ' Medications reviewed (2) Severe sepsis ICD Codes: A41.9 - Sepsis, unspecified organism; R65.20 - Severe sepsis without septic shock Status: Acute Plan: On Aztreonam and flagyl. cultures negative (3) Metabolic encephalopathy ICD Codes: G93.41 - Metabolic encephalopathy Plan: Improving. supportive care. Manage underlying conditions. Monitor. (4) Diabetic ketoacidosis ICD Codes: E13.10 - Other specified diabetes mellitus with ketoacidosis without coma Status: Resolved Plan: Seen by endocrinology Insulin pump off Multimodal insulin Has been having hypoglycemic episodes (5) Hyperkalemia Status: Acute Plan: Corrected Initially due to reduced GFR and resulting metabolic acidosis, and perhaps Bactrim. Monitor for recurrence Plan We do not anticipate the patient requiring further dialysis treatments. Stable for discharge pending approval by all consultants. (Katelyn Holbrook) Plan patient was seen and examined. No need for dialysis. PermCath removal, can be discharged. (Olman Rolle MD) Problem Qualifiers (1) Diabetic ketoacidosis: Qualified Codes: E10.10 - Type 1 diabetes mellitus with ketoacidosis without coma Katelyn Holbrook Nov 13, 2017 11:32 Olman Rolle MD Nov 14, 2017 10:13
[2017-11-13] MEDS ORDERED: LIDOCAINE 1%/EPINEPHrine 1:100,000 SOLN 30 ML VIAL ONE (12:00)
--- NOTE | 2017-11-13 12:18 | PD.RAD ---
Post Procedure Progress Note Pre Procedure Diagnosis: (1) Acute renal failure Post Procedure Diagnosis: (1) LARS (acute kidney injury) Procedure Date: Nov 13, 2017 Supervising Radiologist: Luis Beyer Proceduralist/Assist: Isaac Comer RT(R), Wong Ariza RT(R) Anesthesia: Local Plan of Activity Patient to Unit: Nursing Unit Patient Condition: Good See PACS Report for procedural detail/treatment Central Venous Access Device Procedure 1 Right Internal Jugular Hemodialysis Catheter Tunneled Removal dual lumen Uzbek: 16 Luis Beyer MD Nov 13, 2017 12:18
[2017-11-13 12:40] VITALS: BP 106/54; PULSE 92; RESP 16; TEMP 98; O2SAT 97
--- NOTE | 2017-11-13 13:58 | HHI.PR ---
Subjective Remarks Follow-up sepsis/DKA November 13, 2017-patient seen and examined, denies any chest pain, shortness of breath or dizziness. Treated for asymptomatic Hypoglycemia today as BG 54 this AM. Plan for permacath removal today Objective Vitals Vital Signs Date Time Temp Pulse Resp B/P (MAP) Pulse Ox O2 Delivery O2 Flow Rate FiO2 11/13/17 12:40 98.0 92 16 106/54 (71) 97 11/13/17 08:00 98.2 75 16 134/85 (101) 97 11/13/17 04:00 98.7 82 12 121/75 (90) 97 11/13/17 00:00 98.4 76 12 138/86 (103) 98 11/12/17 20:00 98.6 82 20 105/57 (73) 96 11/12/17 16:00 98.3 82 18 139/81 (100) 98 I/O 11/12/17 11/12/17 11/12/17 11/13/17 11/13/17 11/13/17 07:00 15:00 23:00 07:00 15:00 23:00 Intake Total 540 ml 480 ml 400 ml Output Total 1000 ml 600 ml Balance 540 ml -520 ml -200 ml Intake Oral 540 ml 480 ml 400 ml Output Urine Total 1000 ml 600 ml # Voids 2 1 1 # Bowel Movements 1 1 Result Diagram: 11/13/17 0413 11/13/17 0413 Imaging Last Impressions Renal Ultrasound 11/07/17 0000 Signed Impressions: Service Date/Time: Tuesday, November 07, 2017 17:08 - CONCLUSION: 1. Echogenic kidneys consistent with medical renal disease. 2. Bilateral benign renal cysts. Fabricio Isaac MD Catheter Placement X-Ray 11/07/17 0000 Signed Impressions: Service Date/Time: Tuesday, November 07, 2017 14:27 - CONCLUSION: Uncomplicated PermaCath placement as above. Coy Goldsmith MD Chest X-Ray 11/05/17 0000 Signed Impressions: Service Date/Time: Sunday, November 05, 2017 16:07 - CONCLUSION: Decreased lung volumes and possible diffuse developing interstitial infiltrates. Jad Sanchez MD Objective Remarks GENERAL: NAD SKIN: Warm and dry. HEAD: Normocephalic. EYES: No scleral icterus. No injection or drainage. NECK: Supple, trachea midline. No JVD or lymphadenopathy. CARDIOVASCULAR: Regular rate and rhythm without murmurs, gallops, or rubs. RESPIRATORY: Breath sounds equal bilaterally. No accessory muscle use. GASTROINTESTINAL: Abdomen soft, non-tender, nondistended. MUSCULOSKELETAL: No cyanosis, or edema. BACK: Nontender without obvious deformity. No CVA tenderness. Procedures Urethral dilatation by Date of Insertion: Nov 05, 2017 A/P Problem List: (1) Severe sepsis ICD Code: A41.9 - Sepsis, unspecified organism; R65.20 - Severe sepsis without septic shock Status: Acute (2) Diabetic ketoacidosis ICD Code: E13.10 - Other specified diabetes mellitus with ketoacidosis without coma Status: Resolved (3) Leukocytosis ICD Code: D72.829 - Elevated white blood cell count, unspecified Status: Acute (4) Acute renal failure superimposed on stage 4 chronic kidney disease ICD Code: N17.9 - Acute kidney failure, unspecified; N18.4 - Chronic kidney disease, stage 4 (severe) Status: Acute (5) Hyperkalemia Status: Acute (6) Hyponatremia ICD Code: E87.1 - Hypo-osmolality and hyponatremia Status: Acute (7) Diarrhea Status: Chronic (8) Metabolic encephalopathy ICD Code: G93.41 - Metabolic encephalopathy Assessment and Plan 37-year-old man with DKA Resolved Follow blood sugars Insulin sliding scale Endocrinology following Levemir 8units Q12hrs and Novolog 4units TID Insulin pump currently off Metabolic encephalopathy Improved Monitor for further improvement Hypotension Shock Resolved Acute renal failure chronic kidney disease stage IV Metabolic acidosis Hypocalcemia Electrolyte derangement Continue to monitor renal function Continue IV hydration 2 Dialysis sessions provided Plan for removal of permacath today October 13, 2017 Diarrhea illness negative for C. difficile History of MRSA Leukocytosis Severe sepsis hx UTI Blood cultures are negative to therefore we will discontinue all antibiotics including aztreonam and Flagyl History of DVT DVT prophylaxis Subcutaneous heparin Problem Qualifiers (1) Diabetic ketoacidosis: Qualified Codes: E10.10 - Type 1 diabetes mellitus with ketoacidosis without coma Fabricio Del Castillo MD Nov 13, 2017 13:58
--- NOTE | 2017-11-13 14:23 | RADRPT ---
EXAM DATE/TIME: 11/13/2017 00:00 [facility] COMPARISON: No previous studies available for comparison. INDICATIONS : Patient presents with end stage renal disease history in need of dialysis catheter removal that is n o longer needed. MEDICAL HISTORY : Diabetes, insulin-dependent Chronic kidney disease stage III Hypertension Hyperlipidemia Chronic metabolic acidosis History of DVT in left lower extremity Retinal detachments Scoliosis Erectile dysfunction Left foot drop Peripheral neuropathy History of seizures from hypoglycemia History of CVA Posttraumatic stress disorder Anxiety/depression SURGICAL HISTORY : AV fistula in right upper extremity Left eye surgery Right foot surgery ENCOUNTER: Subsequent ACUITY: 1 week PAIN SCORE: 0/10 LOCATION: N/A IMAGE SERIES: 0 PROCEDURE : 1. PermaCath removal. The risks, benefits and alternatives to the procedure were explained and verbal and written consent w as obtained. The site was prepped in sterile fashion. Full sterile technique was used, including ca p, mask, sterile gloves and gown and a large sterile sheet. Hand hygiene and 2% chlorhexidine and/or betadine/alcohol prep was utilized per protocol for cutaneous antisepsis. The skin and subcutaneous tissues were infiltrated with local anesthetic solution. The tract was anesthetized with 1% Lidocaine using. The Permcath was dissected from the subcutaneous tissues and easily removed in one piece. Manual pressure was applied to the venotomy site until hem ostasis was obtained. Sterile dressing was applied. The patient tolerated the procedure well and there were no complications. CONCLUSION: Uncomplicated Permcath removal. Luis Beyer MD on November 13, 2017 at 14:20 Board Certified Radiologist. This report was verified electronically.
[2017-11-13 16:00] VITALS: BP 124/75; PULSE 86; RESP 16; TEMP 98.7; O2SAT 96
--- NOTE | 2017-11-13 19:33 | HHI.PR ---
Subjective Remarks The patient did have a mild asymptomatic hypoglycemic event over the weekend. He is doing better. His central line was removed today. he has been nauseous today after the catheter was removed and has not been eating. also does not like the food. His tray is currently still by his bedside with what seems to be most of his food in it. Otherwise he is having good urine output and seems to have a more stable renal values per nephrology note. Otherwise other than nausea patient does not report any other symptoms of importance on questioning. Objective Vital Signs Date Time Temp Pulse Resp B/P (MAP) Pulse Ox O2 Delivery O2 Flow Rate FiO2 11/13/17 16:00 98.7 86 16 124/75 (91) 96 11/13/17 15:02 20 11/13/17 12:40 98.0 92 16 106/54 (71) 97 11/13/17 08:00 98.2 75 16 134/85 (101) 97 11/13/17 04:00 98.7 82 12 121/75 (90) 97 11/13/17 00:00 98.4 76 12 138/86 (103) 98 11/12/17 20:00 98.6 82 20 105/57 (73) 96 I/O 11/12/17 11/12/17 11/12/17 11/13/17 11/13/17 11/13/17 07:00 15:00 23:00 07:00 15:00 23:00 Intake Total 540 ml 480 ml 400 ml 360 ml Output Total 1000 ml 600 ml 750 ml Balance 540 ml -520 ml -200 ml -390 ml Intake Oral 540 ml 480 ml 400 ml 360 ml Output Urine Total 1000 ml 600 ml 750 ml # Voids 2 1 1 # Bowel Movements 1 1 Result Diagram: 11/13/17 0413 11/13/17 0413 Objective Remarks Patient is laying in bed. No acute distress. Able to talk and communicate normally. Assessment and Plan Problem List: (1) Hyperglycemia due to type 1 diabetes mellitus ICD Codes: E10.65 - Type 1 diabetes mellitus with hyperglycemia Status: Acute (2) Diabetic ketoacidosis ICD Codes: E13.10 - Other specified diabetes mellitus with ketoacidosis without coma Status: Resolved (3) Diabetes mellitus type 1 Status: Chronic (4) CKD (chronic kidney disease) stage 4, GFR 15-29 ml/min ICD Codes: N18.4 - Chronic kidney disease, stage 4 (severe) Status: Acute (5) Metabolic encephalopathy ICD Codes: G93.41 - Metabolic encephalopathy (6) Hyponatremia ICD Codes: E87.1 - Hypo-osmolality and hyponatremia Status: Acute (7) Diabetic neuropathy Status: Chronic (8) Diabetic retinopathy Status: Chronic (9) Acute renal failure superimposed on stage 4 chronic kidney disease ICD Codes: N17.9 - Acute kidney failure, unspecified; N18.4 - Chronic kidney disease, stage 4 (severe) Status: Acute (10) Hyperkalemia Status: Acute Assessment and Plan Type 1 diabetes status post DKA Hypoglycemia Decreased oral intake Nausea At this point will not change his pre-meal insulin regimen. Main issue is his very unpredictable intake. Recommend to back on his insulin pump once he is discharged. Currently has nobody to bring the pump supplies to the hospital for him. Also not eating his food which has resulted in hypoglycemic events earlier this hospitalization. Suspect his insulin requirements will increase as his renal function has recovered. Will increase his morning Levemir dose to 10 units and keep his bedtime dose the same at 8 units for now. I have taken the liberty to write the orders. Thank you for allowing me to participate in the medical management of this patient. Will follow with you. Problem Qualifiers (1) Diabetic ketoacidosis: Qualified Codes: E10.10 - Type 1 diabetes mellitus with ketoacidosis without coma Doug Sow MD Nov 13, 2017 19:33
[2017-11-13 20:00] VITALS: BP 139/77; PULSE 85; RESP 16; TEMP 98.7; O2SAT 97
[2017-11-13] MEDS ORDERED: INSULIN DETEMIR 100 UNITS/ML VIAL SQ SCH (21:00)
[2017-11-13] MEDS: PARICALCITOL 1 MCG CAP PO SCH (22:12)
[2017-11-14] VITALS: BP 131/81; PULSE 90; RESP 18; TEMP 98.6; O2SAT 97
[2017-11-14 04:00] VITALS: BP 164/91; PULSE 84; RESP 14; TEMP 98.2; O2SAT 98
[2017-11-14] MEDS: CHLORHEXIDINE GLUCONATE 2 % 1 PACK (2 CLOTHS) TOP SCH (04:00)
[2017-11-14] MEDS: HEPARIN SODIUM - SQ 10,000 UNITS/ML VIAL SQ SCH (06:09)
[2017-11-14 07:07] LABS: BICARBONATE 18.2 MEQ/L (21.0-32.0); CALCIUM 7.8 MG/DL (8.5-10.1); CREATININE 3.26 MG/DL (0.60-1.30); PHOSPHORUS 3.1 MG/DL (2.5-4.9)
[2017-11-14 08:00] VITALS: BP 140/82; PULSE 77; RESP 16; TEMP 98.7; O2SAT 97
[2017-11-14] MEDS: INSULIN ASPART SUPPLEMENTAL SCALE SQ SCH ×2 (08:00→12:53)
[2017-11-14] MEDS: INSULIN ASPART 1,000 UNITS/10 ML VIAL SQ SCH ×2 (08:00→12:52)
[2017-11-14] MEDS: INSULIN DETEMIR 100 UNITS/ML VIAL SQ SCH ×2 (08:00→09:31)
[2017-11-14] MEDS ORDERED: ERGOCALCIFEROL (VIT D2) 50,000 UNIT CAP PO SCH (09:00)
[2017-11-14] MEDS: ASPIRIN 81 MG CHEW TAB CHEW SCH (09:30)
[2017-11-14] MEDS: SERTRALINE HCL 100 MG TAB PO SCH (09:30)
[2017-11-14] MEDS: DOCUSATE SODIUM 50 MG/SENNA 8.6 MG TAB PO SCH (09:30)
[2017-11-14] MEDS: FAMOTIDINE 20 MG TAB PO SCH (09:30)
[2017-11-14] MEDS: LACTOBACILLUS ACIDOPHILUS TAB PO SCH (09:30)
[2017-11-14] MEDS: FERROUS SULFATE 325 MG (65 MG ELEMENTAL IRON) TAB PO SCH (10:03)
[2017-11-14] MEDS: TOPIRAMATE 25 MG TAB PO SCH (10:03)
[2017-11-14] MEDS: ACETAMINOPHEN/HYDROcodone 325 MG/5 MG TAB PO PRN ×2 (10:12→13:46)
--- NOTE | 2017-11-14 11:09 | HHI.NPPN ---
Subjective Renal Failure: Chronic, Acute, Stage IV Interval History Permcath was removed. Having episodes of hypoglycemia. (Katelyn Holbrook) Review of Systems General Constitutional: Fatigue (Katelyn Holbrook) Gastrointestinal Gastrointestinal: Abdominal Pain GI Remarks nausea (Katelyn Holbrook) Objective Data Data Vital Signs Date Time Temp Pulse Resp B/P (MAP) Pulse Ox O2 Delivery O2 Flow Rate FiO2 11/14/17 08:00 98.7 77 16 140/82 (101) 97 11/14/17 04:00 98.2 84 14 164/91 (115) 98 11/14/17 00:00 98.6 90 18 131/81 (98) 97 11/13/17 23:13 18 11/13/17 20:00 98.7 85 16 139/77 (97) 97 11/13/17 16:00 98.7 86 16 124/75 (91) 96 11/13/17 12:40 98.0 92 16 106/54 (71) 97 (Katelyn Holbrook) -: 11/13/17 0413 11/14/17 0542 Imaging Last 72 hours Impressions Central Venous Line 11/13/17 0000 Signed Impressions: Service Date/Time: Monday, November 13, 2017 00:00 - CONCLUSION: Uncomplicated Permcath removal. Luis Beyer MD Tubes & Lines: Perma-Cath, Kapoor (Katelyn Holbrook) Physical Exam General Appearance: Well Developed, No Acute Distress, Comfortable (Katelyn Holbrook) Pulmonary Resp Exam: Clear Bilaterally, Breath Sounds Equal (Katelyn Holbrook) Cardiology CV Exam: Regular, Normal Sinus Rhythm (Katelyn Holbrook) Gastrointestinal/Abdomen GI Exam: Soft, Non-Tender, Bowel Sounds Present (Katelyn Holbrook) Musculoskeletal MS Exam: Joints Intact, Normal Tone (Katelyn Holbrook) Integumentary Skin Exam: Warm, Dry, Intact (Katelyn Holbrook) Extremeties Extremities Exam: No Edema (Katelyn Holbrook) Neurologic Neuro Exam: Alert, Awake, Oriented, Speech Clear (Katelyn Holbrook) Psychiatric Psych Exam: Appropriate Responses (Kateyln Holbrook) Assessment/Plan Discussed Condition With: Patient Assessment Summary: LARS/Acute Renal Failure, Hypertension, Diabetes Mellitus, CKD Stage IV Electrolyte Assessment: Metabolic Acidosis Problem List: (1) Acute renal failure superimposed on stage 4 chronic kidney disease ICD Codes: N17.9 - Acute kidney failure, unspecified; N18.4 - Chronic kidney disease, stage 4 (severe) Status: Acute Plan: He has underlying CKD 4. His finishing supervisor plastic sheets is in [place], has not seen him in months. Most likely has diabetic nephropathy. S/p kapoor placement by urology. Has ureteral stricture. Currently non oliguric. Kapoor can be removed at discharge per urology He required 2 HD treatments. Renal function has improved and remained stable Permcath removed 11/13, AVF appears ready for use if needed Cleared for discharge from renal perspective After discharge he will follow with his finishing supervisor plastic sheets within the next month. ' (2) Severe sepsis ICD Codes: A41.9 - Sepsis, unspecified organism; R65.20 - Severe sepsis without septic shock Status: Resolved Plan: On Aztreonam and flagyl. cultures negative (3) Metabolic encephalopathy ICD Codes: G93.41 - Metabolic encephalopathy Status: Resolved Plan: Improving. supportive care. Manage underlying conditions. Monitor. (4) Diabetic ketoacidosis ICD Codes: E13.10 - Other specified diabetes mellitus with ketoacidosis without coma Status: Resolved Plan: Seen by endocrinology Multimodal insulin Has been having hypoglycemic episodes, advised to eat regularly Has insulin pump. Consider discharging with new orders to program in pump. (5) Hyperkalemia ICD Codes: E87.5 - Hyperkalemia Status: Resolved Plan: Corrected Initially due to reduced GFR and resulting metabolic acidosis, and perhaps Bactrim. Monitor for recurrence (Katelyn Holbrook) Plan patient was seen and examined. Agree with above assessment and plan. Consider BESSIE inhibitor or ARB if renal function is stable, can be done in the outpatient setting. He is cleared for discharge from renal standpoint. (Olman Rolle MD) Problem Qualifiers (1) Acute renal failure superimposed on stage 4 chronic kidney disease: Qualified Codes: N17.9 - Acute kidney failure, unspecified; N18.4 - Chronic kidney disease, stage 4 (severe) (2) Diabetic ketoacidosis: Qualified Codes: E10.10 - Type 1 diabetes mellitus with ketoacidosis without coma Katelyn Holbrook Nov 14, 2017 11:09 Olman Rolle MD Nov 14, 2017 14:48
--- NOTE | 2017-11-14 11:36 | HHI.PR ---
Subjective Remarks Follow-up sepsis/DKA November 13, 2017-patient seen and examined, denies any chest pain, shortness of breath or dizziness. Treated for asymptomatic Hypoglycemia today as BG 54 this AM. Plan for permacath removal today November 14, 2017-patient seen and examined, denies any nausea or vomiting with p.o. intake. Stable and stated he is ready for discharge.. Patient stated he has all the supplied that he needs for his diabetes treatment at home Objective Vitals Vital Signs Date Time Temp Pulse Resp B/P (MAP) Pulse Ox O2 Delivery O2 Flow Rate FiO2 11/14/17 08:00 98.7 77 16 140/82 (101) 97 11/14/17 04:00 98.2 84 14 164/91 (115) 98 11/14/17 00:00 98.6 90 18 131/81 (98) 97 11/13/17 23:13 18 11/13/17 20:00 98.7 85 16 139/77 (97) 97 11/13/17 16:00 98.7 86 16 124/75 (91) 96 11/13/17 12:40 98.0 92 16 106/54 (71) 97 I/O 11/13/17 11/13/17 11/13/17 11/14/17 11/14/17 11/14/17 07:00 15:00 23:00 07:00 15:00 23:00 Intake Total 400 ml 360 ml Output Total 600 ml 750 ml 950 ml Balance -200 ml -390 ml -950 ml Intake Oral 400 ml 360 ml Output Urine Total 600 ml 750 ml 950 ml # Voids 1 Result Diagram: 11/13/17 0413 11/14/17 0542 Imaging Last Impressions Central Venous Line 11/13/17 0000 Signed Impressions: Service Date/Time: Monday, November 13, 2017 00:00 - CONCLUSION: Uncomplicated Permcath removal. Luis Beyer MD Renal Ultrasound 11/07/17 0000 Signed Impressions: Service Date/Time: Tuesday, November 07, 2017 17:08 - CONCLUSION: 1. Echogenic kidneys consistent with medical renal disease. 2. Bilateral benign renal cysts. Fabricio Isaac MD Catheter Placement X-Ray 11/07/17 0000 Signed Impressions: Service Date/Time: Tuesday, November 07, 2017 14:27 - CONCLUSION: Uncomplicated PermaCath placement as above. Coy Goldsmith MD Chest X-Ray 11/05/17 0000 Signed Impressions: Service Date/Time: Sunday, November 05, 2017 16:07 - CONCLUSION: Decreased lung volumes and possible diffuse developing interstitial infiltrates. Jad Sanchez MD Objective Remarks GENERAL: NAD SKIN: Warm and dry. HEAD: Normocephalic. EYES: No scleral icterus. No injection or drainage. NECK: Supple, trachea midline. No JVD or lymphadenopathy. CARDIOVASCULAR: Regular rate and rhythm without murmurs, gallops, or rubs. RESPIRATORY: Breath sounds equal bilaterally. No accessory muscle use. GASTROINTESTINAL: Abdomen soft, non-tender, nondistended. MUSCULOSKELETAL: No cyanosis, or edema. BACK: Nontender without obvious deformity. No CVA tenderness. Procedures Urethral dilatation by Date of Insertion: Nov 05, 2017 A/P Problem List: (1) Severe sepsis ICD Code: A41.9 - Sepsis, unspecified organism; R65.20 - Severe sepsis without septic shock Status: Resolved (2) Diabetic ketoacidosis ICD Code: E13.10 - Other specified diabetes mellitus with ketoacidosis without coma Status: Resolved (3) Leukocytosis ICD Code: D72.829 - Elevated white blood cell count, unspecified Status: Acute (4) Acute renal failure superimposed on stage 4 chronic kidney disease ICD Code: N17.9 - Acute kidney failure, unspecified; N18.4 - Chronic kidney disease, stage 4 (severe) Status: Acute (5) Hyperkalemia Status: Resolved (6) Hyponatremia ICD Code: E87.1 - Hypo-osmolality and hyponatremia Status: Resolved (7) Diarrhea Status: Chronic (8) Metabolic encephalopathy ICD Code: G93.41 - Metabolic encephalopathy Status: Resolved Assessment and Plan 37-year-old man with DKA Resolved Follow blood sugars Insulin sliding scale Endocrinology following Levemir 8units Q12hrs and Novolog 4units TID Insulin pump currently off, however patient will resume it when discharged home Metabolic encephalopathy Improved Monitor for further improvement Hypotension Shock Resolved Acute renal failure chronic kidney disease stage IV Metabolic acidosis Hypocalcemia Electrolyte derangement Continue to monitor renal function d/c IV hydration 2 Dialysis sessions provided s/p removal of permacath October 13, 2017 Diarrhea illness negative for C. difficile History of MRSA Leukocytosis Severe sepsis hx UTI Blood cultures are negative , s/p aztreonam and Flagyl History of DVT DVT prophylaxis Subcutaneous heparin Problem Qualifiers (1) Diabetic ketoacidosis: Qualified Codes: E10.10 - Type 1 diabetes mellitus with ketoacidosis without coma Fabricio Del Castillo MD Nov 14, 2017 11:36
[2017-11-14] MEDS ORDERED: AMLO10 PO (11:39)
--- NOTE | 2017-11-14 11:45 | HHI.DS ---
Discharge Summary Admission Date Nov 05, 2017 at 16:42 Discharge Date: Nov 14, 2017 Admitting Diagnosis DKA (1) Severe sepsis ICD Code: A41.9 - Sepsis, unspecified organism; R65.20 - Severe sepsis without septic shock Diagnosis: Principal Status: Resolved (2) Diabetic ketoacidosis ICD Code: E13.10 - Other specified diabetes mellitus with ketoacidosis without coma Diagnosis: Principal Status: Resolved (3) Leukocytosis ICD Code: D72.829 - Elevated white blood cell count, unspecified Diagnosis: Principal Status: Acute (4) Acute renal failure superimposed on stage 4 chronic kidney disease ICD Code: N17.9 - Acute kidney failure, unspecified; N18.4 - Chronic kidney disease, stage 4 (severe) Diagnosis: Principal Status: Acute (5) Hyperkalemia Diagnosis: Principal Status: Resolved (6) Hyponatremia ICD Code: E87.1 - Hypo-osmolality and hyponatremia Diagnosis: Principal Status: Resolved (7) Diarrhea Diagnosis: Principal Status: Chronic (8) Metabolic encephalopathy ICD Code: G93.41 - Metabolic encephalopathy Diagnosis: Principal Status: Resolved Procedures Urethral dilatation by Brief History - From Admission 37 year-old male with rather complex medical history of uncontrolled diabetes, chronic renal failure stage IV, chronic metabolic acidosis, history of CVA, legal blindness, psychiatric history who presented to hospital because of hyperglycemia. The patient does have decreased level consciousness at this time and unable to obtain much information from him. Information taken from medical records. ER documentation indicates that the patient does have insulin- dependent diabetic and on dialysis. Apparently he does have an insulin pump but that is not working at this time. And he did not take his insulin today. Patient had evaluation done by [facility] in his glucose level is greater than 550 so is brought to the emergency department for evaluation. Patient does have multiple episodes of diabetic ketoacidosis dating back to 2001 for uncontrolled diabetes. On this presentation patient is severely ill and without treatment he would surely not survive. He presented with glucose level of 1544, acute renal failure with creatinine 7.3, potassium 6.8. Patient was given IV insulin , calcium gluconate, sodium bicarb in the emergency department and ER physician indicated that he contacted the on-call x ray service engineer to discuss the case with him. Patient did present with shock with blood pressure 96/43. The patient has subsequently undergone infusion of 7 L of IV fluid with only correction of map to 67. The patient does have significant leukocytosis with history of urinary tract infections, MRSA infection, and presently has diarrheal illness. Possible underlying septic shock will need further evaluation. With the patient 's presenting symptoms and findings patient will surely not survive if not admitted to critical care. Patient will be transferred to the main ICU for critical care management, possible emergent dialysis. CBC/BMP: 11/13/17 0413 11/14/17 0542 Significant Findings Laboratory Tests Test 11/12/17 04:48 11/13/17 04:13 11/14/17 05:42 Red Blood Count 3.57 MIL/MM3 (4.50-5.90) 3.52 MIL/MM3 (4.50-5.90) Hemoglobin 10.4 GM/DL (13.0-17.0) 10.3 GM/DL (13.0-17.0) Hematocrit 31.1 % (39.0-51.0) 30.8 % (39.0-51.0) Blood Urea Nitrogen 29 MG/DL (7-18) 31 MG/DL (7-18) 31 MG/DL (7-18) Creatinine 3.31 MG/DL (0.60-1.30) 3.34 MG/DL (0.60-1.30) 3.26 MG/DL (0.60-1.30) Total Protein 5.3 GM/DL (6.4-8.2) Albumin 2.1 GM/DL (3.4-5.0) 2.1 GM/DL (3.4-5.0) 2.0 GM/DL (3.4-5.0) Calcium Level 8.3 MG/DL (8.5-10.1) 7.8 MG/DL (8.5-10.1) Aspartate Amino Transf (AST/SGOT) 41 U/L (15-37) Potassium Level 3.4 MEQ/L (3.5-5.1) Chloride Level 109 MEQ/L (98-107) 112 MEQ/L (98-107) 115 MEQ/L (98-107) Estimat Glomerular Filtration Rate 21 ML/MIN (>89) 21 ML/MIN (>89) 22 ML/MIN (>89) Random Glucose 116 MG/DL (74-106) 130 MG/DL (74-106) Carbon Dioxide Level 18.2 MEQ/L (21.0-32.0) Imaging Last Impressions Central Venous Line 11/13/17 0000 Signed Impressions: Service Date/Time: Monday, November 13, 2017 00:00 - CONCLUSION: Uncomplicated Permcath removal. Luis Beyer MD Renal Ultrasound 11/07/17 0000 Signed Impressions: Service Date/Time: Tuesday, November 07, 2017 17:08 - CONCLUSION: 1. Echogenic kidneys consistent with medical renal disease. 2. Bilateral benign renal cysts. Fabricio Isaac MD Catheter Placement X-Ray 11/07/17 0000 Signed Impressions: Service Date/Time: Tuesday, November 07, 2017 14:27 - CONCLUSION: Uncomplicated PermaCath placement as above. Coy Goldsmith MD Chest X-Ray 11/05/17 0000 Signed Impressions: Service Date/Time: Sunday, November 05, 2017 16:07 - CONCLUSION: Decreased lung volumes and possible diffuse developing interstitial infiltrates. Jad Sanchez MD PE at Discharge GENERAL: NAD SKIN: Warm and dry. HEAD: Normocephalic. EYES: No scleral icterus. No injection or drainage. NECK: Supple, trachea midline. No JVD or lymphadenopathy. CARDIOVASCULAR: Regular rate and rhythm without murmurs, gallops, or rubs. RESPIRATORY: Breath sounds equal bilaterally. No accessory muscle use. GASTROINTESTINAL: Abdomen soft, non-tender, nondistended. MUSCULOSKELETAL: No cyanosis, or edema. BACK: Nontender without obvious deformity. No CVA tenderness. 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 difficile-resolved prior to discharge History of MRSA Leukocytosis Severe sepsis hx UTI Blood cultures are negative , Initially on aztreonam and Flagyl which were discontinued History of DVT DVT prophylaxis Subcutaneous heparin Pt Condition on Discharge: Good Discharge Disposition: Discharge Home Discharge Instructions DIET: Follow Instructions for: Diabetic Diet Activities you can perform: Regular-No Restrictions Follow up Referrals: Endocrinology Nephrology PCP Follow-up - 1 Week New Medications: Amlodipine (Norvasc) 10 Mg Tab 5 MG PO DAILY for Blood Pressure Management, #30 TAB Continued Medications: Aspirin (Aspirin 81 Low Dose) 81 Mg Chew 81 MG CHEW DAILY, #30 TAB Cholecalciferol (Vitamin D3) 50,000 Unit Cap 15293 UNITS PO Q7D for Nutritional Supplement, #1 BOTTLE 0 Refills Insulin Lispro (Human) Inj (Humalog Inj) 1,000 Unit/10 Ml Vial Unknown Dose SQ CONTINUOUS for Blood Sugar Management, #1 VIAL 0 Refills Max dose at bedtime:( )units; sugars< 70,(0)units; sugars 150-199,(1)unit; sugars 200-249,(3)units; sugars 250-299,(5)units; sugars 300-349,(7)units; sugars more than 349,(9)units. Loratadine (Claritin) 5 Mg Chew 5 MG CHEW DAILY for Allergy Management, TAB 0 Refills Ondansetron (Zofran) 4 Mg Tab 4 MG PO Q6HR PRN for NAUSEA OR VOMITING, #20 TAB 0 Refills Paricalcitol (Paricalcitol) 4 Mcg Cap 4 MCG PO HS for Secondary hyperparathyroidism, #30 CAP 0 Refills Sertraline (Sertraline) 100 Mg Tab 100 MG PO DAILY, #30 TAB 0 Refills Sodium Bicarbonate (Sodium Bicarbonate) 325 Mg Tab 325 MG PO BIDPC, #60 TAB 0 Refills Topiramate (Topamax) 50 Mg Tab 50 MG PO BID for Control Seizures, #60 TAB 0 Refills [Insulin Pump] () Discontinued Medications: Cefuroxime (Ceftin) 250 Mg Tab 250 MG PO Q12HR for UTI for 14 Days, #24 TAB Tramadol (Tramadol) 50 Mg Tab 50 MG PO Q6H PRN for PAIN, TAB 0 Refills Tramadol (Tramadol) 50 Mg Tab 50 MG PO Q6H PRN for PAIN, #10 TAB 0 Refills Fabricio Del Castillo MD Nov 14, 2017 11:45
[2017-11-14 12:00] VITALS: BP 158/93; PULSE 78; RESP 18; TEMP 98.3; O2SAT 96
[2017-11-14 16:00] VITALS: BP 115/81; PULSE 85; RESP 18; TEMP 98.3; O2SAT 99
== END 2017-11-14 17:51 | disposition home or self-care (01) | DRG 871 ==
LOC: PHED 14:36 → PHEDA 16:42 → HIME 19:10 → N03B 11-09 21:44
PROVIDERS: ADMIT Hospitalist; ATTEND Hospitalist
PROC: 5A1D70Z Performance of Urinary Filtration, Intermittent, Less than 6 Hours Per Day (ICD-10-PCS; principal; 2017-11-07)
PROC: 0JH63XZ Insertion of Tunneled Vascular Access Device into Chest Subcutaneous Tissue and Fascia, Percutaneous Approach (ICD-10-PCS; 2017-11-07)
PROC: 05HM33Z Insertion of Infusion Device into Right Internal Jugular Vein, Percutaneous Approach (ICD-10-PCS; 2017-11-07)
PROC: B513ZZA Fluoroscopy of Right Jugular Veins, Guidance (ICD-10-PCS; 2017-11-07)
PROC: B543ZZA Ultrasonography of Right Jugular Veins, Guidance (ICD-10-PCS; 2017-11-07)
DX: A41.9 Sepsis, unspecified organism (principal); G93.41 Metabolic encephalopathy; E10.10 Type 1 diabetes mellitus with ketoacidosis without coma; N17.9 Acute kidney failure, unspecified; N18.4 Chronic kidney disease, stage 4 (severe); E87.1 Hypo-osmolality and hyponatremia; E87.5 Hyperkalemia; R65.20 Severe sepsis without septic shock; F41.9 Anxiety disorder, unspecified; F32.9 Major depressive disorder, single episode, unspecified; F43.10 Post-traumatic stress disorder, unspecified; I12.9 Hypertensive chronic kidney disease with stage 1 through stage 4 chronic kidney disease, or unspecified chronic kidney disease; R33.9 Retention of urine, unspecified; N52.9 Male erectile dysfunction, unspecified; E83.51 Hypocalcemia; Z79.2 Long term (current) use of antibiotics; Z79.4 Long term (current) use of insulin; Z79.82 Long term (current) use of aspirin; Z86.718 Personal history of other venous thrombosis and embolism; Z79.899 Other long term (current) drug therapy; Z86.73 Personal history of transient ischemic attack (TIA), and cerebral infarction without residual deficits; Z88.1 Allergy status to other antibiotic agents; Z88.0 Allergy status to penicillin; Z88.8 Allergy status to other drugs, medicaments and biological substances; Z91.018 Allergy to other foods
CPT/HCPCS: 36558; 36589; 71045; 76775; 76937; 77001; 80048; 80053; 80069; 80074; 81001; 82010; 82043; 82140; 82306; 82550; 82552; 82728; 82805; 82947; 82948; 83036; 83540; 83550; 83605; 83735; 84100; 84132; 84155; 85025; 87040; 87493; 87641; 90935; 93005; 96361; 96374; 99152; 99153; 99292; C1750; J0360; J0610; J0780; J1580; J1644; J1815; J1817; J2250; J2405; J3010; J3370; J3480; J7030; J7050; J7120; Q4081

== ENCOUNTER 2017-11-27 12:45 | Emergency (ER) | payer MEDICAID | END 2017-11-27 16:06 | disposition home or self-care (01) | LOC: PHED 12:45 | DX: S93.402A Sprain of unspecified ligament of left ankle, initial encounter (principal); X58.XXXA Exposure to other specified factors, initial encounter; G62.9 Polyneuropathy, unspecified; F32.9 Major depressive disorder, single episode, unspecified; I12.9 Hypertensive chronic kidney disease with stage 1 through stage 4 chronic kidney disease, or unspecified chronic kidney disease; E11.22 Type 2 diabetes mellitus with diabetic chronic kidney disease; N18.4 Chronic kidney disease, stage 4 (severe); Z86.718 Personal history of other venous thrombosis and embolism; Z72.0 Tobacco use | CPT/HCPCS: 73610; 73630; 93971; 99284 ==

== ENCOUNTER 2017-12-01 12:46 | Inpatient (IN) | payer MEDICAID ==
[~2017-12-01] VITALS: Ht 172.7 cm; Wt 76.0 kg
[2017-12-01] VITALS (7 sets, daily range): BP systolic 96–124; BP diastolic 52–85; PULSE 80–98; RESP 16–19; TEMP 97.7–98.4; O2SAT 97–100
[~2017-12-01 12:46] MED LIST changes: +ALPR.5 PO; -BACT800T5 PO; -CEFU1TAB18 PO; +LORA-650 PO; -LORA1CHW2 CHEW; -guaiFENesin ER PO
--- NOTE | 2017-12-01 15:44 | PD ---
HPI Chief Complaint: Wound/Suture/Staple Re-Check Time Seen by Provider: 15:26 Travel History International Travel<30 days: No Contact w/Intl Traveler<30days: No Traveled to known affect area: No History of Present Illness HPI This is a 37-year-old male who presents for evaluation of left foot pain. He has a history of diabetes, DVT on Eliquis. He was admitted for DKA in mid October. He reports that since then he has had increase swelling in his left foot. He was seen on November 27 at [facility]. He had x-ray of the left foot, ankle as well as an ultrasound of the left leg at that time. He was felt to have an ankle sprain and he was discharged home. He was seen today by his compliance professional, Dr. Langley, and Cathie, who felt that he had an infection and recommended return to the ER for further evaluation and antibiotic treatment. He reports history of peripheral neuropathy in the lower extremities, he has an ulcer in the posterior aspect of left foot which he does not recall when it started secondary to the neuropathy. He denies any fevers, chills. No other complaints. PFSH Past Medical History Hx Anticoagulant Therapy: Yes (Eliquis for blood clot in left leg ) ADHD: Yes (HX OF) Arthritis: No Asthma: No Autoimmune Disease: No Blood Disorders: No Anxiety: No Depression: Yes Heart Rhythm Problems: No Cancer: No Cardiovascular Problems: Yes (DVT) High Cholesterol: No Chemotherapy: No Chest Pain: No Congestive Heart Failure: No COPD: No Cerebrovascular Accident: Yes Diabetes: Yes Patient Takes Glucophage: No Diminished Hearing: No Deep Vein Thrombosis: Yes (left leg) Endocrine: Yes Gastrointestinal Disorders: Yes GERD: Yes Glaucoma: No Genitourinary: Yes (SLOW STREAM) Headaches: Yes Hepatitis: No Hiatal Hernia: No Hypertension: Yes Immune Disorder: No Implanted Vascular Access Dvce: No Kidney Stones: No Musculoskeletal: Yes (SCOLIOSIS, RIGHT ULNAR FX., DROP FOOT TO LEFT FOOT) Neurologic: Yes (NEUROPATHY, SEIZURES WITH LOW BLD SUGAR, NUMBNESS TO LEFT HAND ) Psychiatric: Yes (MILD DEPRESSION) Reproductive: Yes (ERECTILE DYSFUNCTION) Respiratory: No Immunizations Current: Yes Migraines: Yes Myocardial Infarction: No Radiation Therapy: No Renal Failure: Yes (STAGE 4) Seizures: No Sickle Cell Disease: No Sleep Apnea: No Thyroid Disease: No Ulcer: Yes (GASTRIC) Influenza Vaccination: No PNEUMOCCOCAL Vaccine (Year): 3 ?: Not Past Surgical History Abdominal Surgery: No AICD: No Appendectomy: No Arteriovenous Shunt: No Body Medical Devices: SCREWS IN RIGHT FOOT Cardiac Surgery: No Cholecystectomy: No Ear Surgery: No Endocrine Surgery: No Eye Surgery: Yes (LEFT EYE SURGERY 10/27/2010) Genitourinary Surgery: No Gynecologic Surgery: No Insulin Pump: No Joint Replacement: No Neurologic Surgery: No Oral Surgery: No Pacemaker: No Thoracic Surgery: No Other Surgery: Yes (FISTULA PLACEMENT RIGHT ARM) Social History Alcohol Use: No Tobacco Use: No (OCCASIONALLY VAPE) Substance Use: Yes (MARIJUANA, LAST TIME 4 YEARS AGO) Allergies-Medications (Allergen,Severity, Reaction): Coded Allergies: amoxicillin (Verified Allergy, Severe, Rash, 12/01/17) broccoli (Verified Allergy, Severe, ANAPHYLAXIS, 12/01/17) mushroom (Verified Allergy, Severe, ANAPHYLAXIS, 12/01/17) penicillin G (Verified Allergy, Severe, Hives, 12/01/17) *MDRO Multi-Drug Resistant Organism (Verified Adverse Reaction, Unknown, ) MRSA 06/2014 and 11/2009. MRSA PCR Screen positive 05/21/15. Reported Meds & Prescriptions Reported Meds & Active Scripts Active Zofran (Ondansetron HCl) 4 Mg Tab 4 Mg PO Q6HR PRN Reported Xanax (Alprazolam) 0.5 Mg Tab 0.5 Mg PO Q6H PRN Tramadol (Tramadol HCl) 50 Mg Tab 50 Mg PO Q6H PRN Eliquis (Apixaban) 5 Mg Tab 5 Mg PO BID Allergy Relief (Loratadine) 10 Mg Tab 10 Mg PO DAILY Topamax (Topiramate) 50 Mg Tab 150 Mg PO BID Humalog Inj (Insulin Human Lispro) 1,000 Unit/10 Ml Vial Unknown Dose SQ CONTINUOUS Max dose at bedtime:( )units; sugars< 70,(0)units; sugars 150-199,(1)unit; sugars 200-249,(3)units; sugars 250-299,(5)units; sugars 300-349,(7)units; sugars more than 349,(9)units. [Insulin Pump] Aspirin 81 Low Dose (Aspirin) 81 Mg Chew 81 Mg CHEW DAILY Sodium Bicarbonate 325 Mg Tab 325 Mg PO BIDPC Sertraline (Sertraline HCl) 100 Mg Tab 100 Mg PO DAILY Vitamin D3 (Cholecalciferol) 50,000 Unit Cap 50,000 Units PO Q7D Paricalcitol 4 Mcg Cap 4 Mcg PO HS Review of Systems Except as stated in HPI: all other systems reviewed are Neg Physical Exam Narrative GENERAL: Well-developed well-nourished male in no acute distress SKIN: Warm and dry. Left foot is erythematous, particularly in the posterior aspect. There is a large ulceration on the posterior left heel with some black sure formation. No foul smell or purulent drainage. HEAD: Atraumatic. Normocephalic. EYES: Pupils equal and round. No scleral icterus. No injection or drainage. ENT: No nasal bleeding or discharge. Mucous membranes pink and moist. NECK: Trachea midline. No JVD. CARDIOVASCULAR: Regular rate and rhythm. No murmur appreciated. RESPIRATORY: No accessory muscle use. Clear to auscultation. Breath sounds equal bilaterally. GASTROINTESTINAL: Abdomen soft, non-tender, nondistended. Hepatic and splenic margins not palpable. MUSCULOSKELETAL: Skin as noted above. Tenderness to palpation left foot. Pulses are intact. NEUROLOGICAL: Awake and alert. No obvious cranial nerve deficits. Motor grossly within normal limits. Normal speech. Data Data Last Documented VS Vital Signs Date Time Temp Pulse Resp B/P (MAP) Pulse Ox O2 Delivery O2 Flow Rate FiO2 12/01/17 15:54 100 Room Air 12/01/17 15:54 12/01/17 15:21 98 18 12/01/17 13:06 98.4 Orders Orders Sepsis Workup Initiated (12/01/17 ) Complete Blood Count With Diff (12/01/17 15:37) Comprehensive Metabolic Panel (12/01/17 15:37) Prothrombin Time / Inr (Pt) (12/01/17 15:37) Act Partial Throm Time (Ptt) (12/01/17 15:37) Lactic Acid Sepsis Protocol (12/01/17 15:37) Blood Culture (12/01/17 15:37) Blood Glucose (12/01/17 15:37) Ecg Monitoring (12/01/17 15:37) Iv Access Insert/Monitor (12/01/17 15:37) Oximetry (12/01/17 15:37) Oxygen Administration (12/01/17 15:37) Westergren Sedimentation Rate (12/01/17 15:37) C-Reactive Protein (Crp) (12/01/17 15:37) Sodium Chlor 0.9% 1000 Ml Inj (Ns 1000 M (12/01/17 15:37) Sodium Chloride 0.9% Flush (Ns Flush) (12/01/17 17:00) Electrocardiogram (12/01/17 16:53) Potassium Chloride (Kcl) (12/01/17 17:00) Potassium Chlor 10 Meq Premix (Kcl 10 Me (12/01/17 17:00) Vancomycin Inj (Vancomycin Inj) (12/01/17 17:30) Levofloxacin 500 Mg Premix Inj (Levaquin (12/01/17 17:30) Admit Order (Ed Use Only) (12/01/17 18:19) Labs Laboratory Tests Test 12/01/17 16:00 White Blood Count 9.2 TH/MM3 Red Blood Count 3.40 MIL/MM3 Hemoglobin 9.7 GM/DL Hematocrit 29.3 % Mean Corpuscular Volume 86.0 FL Mean Corpuscular Hemoglobin 28.5 PG Mean Corpuscular Hemoglobin Concent 33.2 % Red Cell Distribution Width 14.4 % Platelet Count 425 TH/MM3 Mean Platelet Volume 7.6 FL Neutrophils (%) (Auto) 58.9 % Lymphocytes (%) (Auto) 31.7 % Monocytes (%) (Auto) 6.6 % Eosinophils (%) (Auto) 2.2 % Basophils (%) (Auto) 0.6 % Neutrophils # (Auto) 5.4 TH/MM3 Lymphocytes # (Auto) 2.9 TH/MM3 Monocytes # (Auto) 0.6 TH/MM3 Eosinophils # (Auto) 0.2 TH/MM3 Basophils # (Auto) 0.1 TH/MM3 CBC Comment DIFF FINAL Differential Comment Prothrombin Time 11.4 SEC Prothromb Time International Ratio 1.1 RATIO Activated Partial Thromboplast Time 31.0 SEC Blood Urea Nitrogen 26 MG/DL Creatinine 4.09 MG/DL Random Glucose 200 MG/DL Total Protein 6.2 GM/DL Albumin 2.1 GM/DL Calcium Level 8.1 MG/DL Alkaline Phosphatase 110 U/L Aspartate Amino Transf (AST/SGOT) 14 U/L Alanine Aminotransferase (ALT/SGPT) 14 U/L Total Bilirubin 0.1 MG/DL Sodium Level 136 MEQ/L Potassium Level 2.8 MEQ/L Chloride Level 104 MEQ/L Carbon Dioxide Level 22.7 MEQ/L Anion Gap 9 MEQ/L Estimat Glomerular Filtration Rate 17 ML/MIN Lactic Acid Level 0.7 mmol/L C-Reactive Protein 1.90 MG/DL [facility] Medical Decision Making Medical Screen Exam Complete: Yes Emergency Medical Condition: Yes Medical Record Reviewed: Yes Differential Diagnosis Diabetic foot ulcer, pressure ulcer, cellulitis, osteomyelitis Narrative Course Lab work, blood cultures have been ordered. IV fluids initiated. CBC reveals hemoglobin 9.7, potassium is 2.8, IV and oral potassium ordered. GFR 17 which is consistent with his baseline chronic kidney disease. Glucose is 200. CRP is 1.9. At this point in time the plan is to admit him for further treatment of cellulitis, left diabetic foot ulcer, hypokalemia. The patient will be given on initial loading dose of 1 g vancomycin, 500 mg of Levaquin, should be renally dosed during hospital stay. Diagnosis Primary Impression: Cellulitis of left foot Additional Impressions: Diabetic foot ulcer Hypokalemia Admitting Information Admitting Physician Requests: it Huber Marte December 01, 2017 15:44
[2017-12-01] MEDS: SODIUM CHLOR 0.9% 1000 ML INJ 1,000 ML IV SCH ×2 (16:21→18:06)
[2017-12-01 16:27] LABS: AUTOMATED NEUTROPHIL # 5.4 TH/MM3 (1.8-7.7); BASOPHIL # 0.1 TH/MM3 (0-0.2); BASOPHIL % 0.6 % (0.0-2.0); EOSINOPHIL # 0.2 TH/MM3 (0-0.4); EOSINOPHIL % 2.2 % (0.0-4.0); HEMATOCRIT 29.3 % (39.0-51.0); HEMOGLOBIN 9.7 GM/DL (13.0-17.0); LYMPH % 31.7 % (9.0-44.0); LYMPHOCYTE # 2.9 TH/MM3 (1.0-4.8); MEAN CORPUSCULAR HEMOGLOBIN 28.5 PG (27.0-34.0); MEAN CORPUSCULAR HGB CONC 33.2 % (32.0-36.0); MEAN PLATELET VOLUME 7.6 FL (7.0-11.0); MONO % 6.6 % (0.0-8.0); MONOCYTE # 0.6 TH/MM3 (0-0.9); NEUT % 58.9 % (16.0-70.0); PLATELET COUNT 425 TH/MM3 (150-450); RED CELL DISTRIBUTION WIDTH 14.4 % (11.6-17.2); WHITE BLOOD COUNT 9.2 TH/MM3 (4.0-11.0)
[2017-12-01 16:36] LABS: INTERNATIONAL NORMALIZED RATIO 1.1 RATIO; PROTHROMBIN TIME - PATIENT 11.4 SEC (9.8-11.6)
[2017-12-01 16:47] LABS: ALBUMIN 2.1 GM/DL (3.4-5.0); BLOOD UREA NITROGEN 26 MG/DL (7-18); CALCIUM 8.1 MG/DL (8.5-10.1); CREATININE 4.09 MG/DL (0.60-1.30); GLOMERULAR FILTRATION RATE 17 ML/MIN (>89); GLUCOSE,RANDOM 200 MG/DL (74-106)
[2017-12-01 16:48] LABS: ALKALINE PHOSPHATASE 110 U/L (45-117); AST (GOT) 14 U/L (15-37); BICARBONATE 22.7 MEQ/L (21.0-32.0); CHLORIDE 104 MEQ/L (98-107); SODIUM (NA) 136 MEQ/L (136-145); TOTAL PROTEIN 6.2 GM/DL (6.4-8.2)
[2017-12-01 16:49] LABS: ALT (GPT) 14 U/L (12-78); TOTAL BILIRUBIN ADULT 0.1 MG/DL (0.2-1.0)
[2017-12-01] MEDS ORDERED: SODIUM CHLORIDE 0.9% FLUSH 10 ML FLUSH IV FLUSH PRN ×2 (17:00→18:30)
[2017-12-01] MEDS ORDERED: POTASSIUM CHLOR 10 MEQ PREMIX 100 ML IV ONE (17:00)
[2017-12-01] MEDS ORDERED: POTASSIUM CHLORIDE 20 MEQ CONTROLLED RELEASE TAB PO ONE (17:00)
[2017-12-01] MEDS ORDERED: LEVOFLOXACIN 500 MG PREMIX INJ 100 ML IV ONE (17:30)
[2017-12-01] MEDS ORDERED: VANCOMYCIN INJ 1,000 MG in SODIUM CHLOR 0.9% 250 ML INJ 250 ML IV ONE (17:30)
[2017-12-01] MEDS ORDERED: LACTULOSE SYRUP 20 GM/30 ML CUP PO PRN (18:30)
[2017-12-01] MEDS ORDERED: MAGNESIUM HYDROXIDE SUSP 30 ML CUP PO PRN (18:30)
[2017-12-01] MEDS ORDERED: ACETAMINOPHEN 325 MG TAB PO PRN (18:30)
[2017-12-01] MEDS ORDERED: NALOXONE HCL 0.4 MG/ML AMP IV PUSH PRN (18:30)
[2017-12-01] MEDS ORDERED: DEXTROSE 50% IN WATER 50 ML VIAL(D50) IV PUSH PRN (18:30)
[2017-12-01] MEDS ORDERED: ENOXAPARIN SODIUM 30 MG/0.3 ML SYRINGE SQ SCH (18:30)
[2017-12-01] MEDS ORDERED: VANCOMYCIN INJ 1,000 MG in SODIUM CHLOR 0.9% 250 ML INJ 250 ML IV SCH (18:30)
[2017-12-01] MEDS ORDERED: GLUCAGON 1 MG/ML VIAL OTHER PRN (18:30)
[2017-12-01] MEDS ORDERED: SENNOSIDES 8.6 MG TAB PO PRN (18:30)
[2017-12-01] MEDS ORDERED: LEVOFLOXACIN 500 MG PREMIX INJ 100 ML IV SCH (18:30)
[2017-12-01] MEDS ORDERED: ONDANSETRON HCL 4 MG/2 ML VIAL IVP PRN (18:30)
[2017-12-01] MEDS ORDERED: BISACODYL 10 MG SUPP RECTAL PRN (18:30)
[2017-12-01] MEDS ORDERED: ALPRAZolam 0.5 MG TAB PO PRN (18:30)
--- NOTE | 2017-12-01 19:18 | HHI.HP ---
HPI Service [facility] Primary Care Physician Brittany Lovelace MD Admission Diagnosis Cellulitis, diabetic foot ulcer, hypokalemia Diagnoses: (1) CKD (chronic kidney disease) stage 4, GFR 15-29 ml/min Diagnosis: Principal (2) H/O deep venous thrombosis Diagnosis: Principal (3) Cellulitis of left foot Diagnosis: Principal (4) Hypokalemia Diagnosis: Principal (5) DM (diabetes mellitus) Diagnosis: Principal Travel History International Travel<30 Days: No Contact w/Intl Traveler <30 Da: No Traveled to Known Affected Are: No History of Present Illness This is a 37-year-old male with a PMH of HTN, DM, h/o DVT on Eliquis, CKD Stage IV and Left Foot Ulcer who was referred to the ER by his Senior Mechanical Designer for evaluation of left foot infection. Seen in the ER on 11/27/2017 for similar complaints, X-ray of foot and ankle with no evidence of fracture, LE Doppler negative for DVT, symptoms thought to be due secondary to ankle sprain and was ultimately discharged from the ER. States symptoms have been ongoing for the last 2 weeks. Denies fever or chills. Was seen today by Senior Mechanical Designer referred to the ER for likely foot infection. On arrival, BP 111/64, HR 98, O2 sat 98% on RA, Afebrile. WBC 9.2. K+ 2.8. Creatinine 4.09, previously 3.26 on 11/14/2017. Lactic acid normal. S/p Blood Cultures, Vanc/Levaquin in ER. Review of Systems Except as stated in HPI: all other systems reviewed are Neg ROS: 14 point review of systems otherwise negative. Past Family Social History Past Medical History PMH: HTN, DM, h/o DVT on Eliquis, CKD Stage IV and Left Foot Ulcer Past Surgical History PAST SURGICAL HISTORY: Right Foot Surgery, Left Eye Surgery, RUE AV Fistula Allergies: Coded Allergies: amoxicillin (Verified Allergy, Severe, Rash, 12/01/17) broccoli (Verified Allergy, Severe, ANAPHYLAXIS, 12/01/17) mushroom (Verified Allergy, Severe, ANAPHYLAXIS, 12/01/17) penicillin G (Verified Allergy, Severe, Hives, 12/01/17) *MDRO Multi-Drug Resistant Organism (Verified Adverse Reaction, Unknown, ) MRSA 06/2014 and 11/2009. MRSA PCR Screen positive 05/21/15. Family History PAST FAMILY HISTORY: Reviewed. No h/o DM or CAD Social History PAST SOCIAL HISTORY: Negative for alcohol. Occasional vapor. History of Marijuana. Physical Exam Vital Signs Vital Signs Date Time Temp Pulse Resp B/P (MAP) Pulse Ox O2 Delivery O2 Flow Rate FiO2 12/01/17 19:01 86 18 124/85 (98) 99 Room Air 12/01/17 18:35 100 21 12/01/17 18:32 80 18 99 Room Air 12/01/17 15:54 100 Room Air 12/01/17 15:54 100 Room Air 12/01/17 15:21 98 18 112/64 (80) 98 Room Air 12/01/17 13:06 98.4 98 19 96/52 (67) 99 Physical Exam PE: GENERAL: Young male in no acute distress. Has tshirt over his face. HEENT: PERRLA, EOMI. No scleral icterus or conjunctival pallor. No lid lag or facial droop. CARDIOVASCULAR: Regular rate and rhythm. No obvious murmurs to auscultation. No chest tenderness to palpation. RESPIRATORY: No obvious rhonchi or wheezing. Clear to auscultation. Breath sounds equal bilaterally. GASTROINTESTINAL: Abdomen soft, non-tender, nondistended. BS normal. MUSCULOSKELETAL: Extremities without clubbing, cyanosis, or edema. No obvious deformities. Left foot w/ erythema/edema +heel ulceration, no drainage noted. NEUROLOGICAL: Awake, alert and oriented x4. No focal neurologic deficits. Moving both upper and lower extremities spontaneously. Laboratory Laboratory Tests Test 12/01/17 16:00 White Blood Count 9.2 Red Blood Count 3.40 Hemoglobin 9.7 Hematocrit 29.3 Mean Corpuscular Volume 86.0 Mean Corpuscular Hemoglobin 28.5 Mean Corpuscular Hemoglobin Concent 33.2 Red Cell Distribution Width 14.4 Platelet Count 425 Mean Platelet Volume 7.6 Neutrophils (%) (Auto) 58.9 Lymphocytes (%) (Auto) 31.7 Monocytes (%) (Auto) 6.6 Eosinophils (%) (Auto) 2.2 Basophils (%) (Auto) 0.6 Neutrophils # (Auto) 5.4 Lymphocytes # (Auto) 2.9 Monocytes # (Auto) 0.6 Eosinophils # (Auto) 0.2 Basophils # (Auto) 0.1 CBC Comment DIFF FINAL Differential Comment Erythrocyte Sedimentation Rate GREATER THAN 140 Prothrombin Time 11.4 Prothromb Time International Ratio 1.1 Activated Partial Thromboplast Time 31.0 Blood Urea Nitrogen 26 Creatinine 4.09 Random Glucose 200 Total Protein 6.2 Albumin 2.1 Calcium Level 8.1 Alkaline Phosphatase 110 Aspartate Amino Transf (AST/SGOT) 14 Alanine Aminotransferase (ALT/SGPT) 14 Total Bilirubin 0.1 Sodium Level 136 Potassium Level 2.8 Chloride Level 104 Carbon Dioxide Level 22.7 Anion Gap 9 Estimat Glomerular Filtration Rate 17 Lactic Acid Level 0.7 C-Reactive Protein 1.90 Date/Time Source Procedure Growth Status 12/01/17 16:05 Blood Peripheral Aerobic Blood Culture Pending Received 12/01/17 16:05 Blood Peripheral Anaerobic Blood Culture Pending Received Result Diagram: 12/01/17 1600 12/01/17 1600 Caprini VTE Risk Assessment Caprini VTE Risk Assessment: Mod/High Risk (score >= 2) Caprini Risk Assessment Model Point Value = 1 Point Value = 2 Point Value = 3 Point Value = 5 Age 41-60 Minor surgery BMI > 25 kg/m2 Swollen legs Varicose veins or History of unexplained or recurrent spontaneous Oral contraceptives or hormone replacement Sepsis (< 1 month) Serious lung disease, including pneumonia (< 1 month) Abnormal pulmonary function Acute myocardial infarction Congestive heart failure (< 1 month) History of inflammatory bowel disease Medical patient at bed rest Age 61-74 Arthroscopic surgery Major open surgery (> 45 min) Laparoscopic surgery (> 45 min) Malignancy Confined to bed (> 72 hours) Immobilizing plaster cast Central venous access Age >= 75 History of VTE Family history of VTE Factor V Leiden Prothrombin [id number] Lupus anticoagulant Anticardiolipin antibodies Elevated serum homocysteine Heparin-induced thrombocytopenia Other congenital or acquired thrombophilia Stroke (< 1 month) Elective arthroplasty Hip, pelvis, or leg fracture Acute spinal cord injury (< 1 month) Prophylaxis Regimen Total Risk Factor Score Risk Level Prophylaxis Regimen 0-1 Low Early ambulation 2 Moderate Order ONE of the following: *Sequential Compression Device (SCD) *Heparin 5000 units SQ BID 3-4 Higher Order ONE of the following medications: *Heparin 5000 units SQ TID *Enoxaparin/Lovenox 40 mg SQ daily (WT < 150 kg, CrCl > 30 mL/min) *Enoxaparin/Lovenox 30 mg SQ daily (WT < 150 kg, CrCl > 10-29 mL/min) *Enoxaparin/Lovenox 30 mg SQ BID (WT < 150 kg, CrCl > 30 mL/min) AND/OR *Sequential Compression Device (SCD) 5 or more Highest Order ONE of the following medications: *Heparin 5000 units SQ TID (Preferred with Epidurals) *Enoxaparin/Lovenox 40 mg SQ daily (WT < 150 kg, CrCl > 30 mL/min) *Enoxaparin/Lovenox 30 mg SQ daily (WT < 150 kg, CrCl > 10-29 mL/min) *Enoxaparin/Lovenox 30 mg SQ BID (WT < 150 kg, CrCl > 30 mL/min) AND *Sequential Compression Device (SCD) Assessment and Plan Problem List: (1) Cellulitis of left foot ICD Code: L03.116 - Cellulitis of left lower limb; L97.509 - Non-pressure chronic ulcer of other part of unspecified foot with unspecified severity Status: Acute (2) Hypokalemia ICD Code: E87.6 - Hypokalemia; L97.509 - Non-pressure chronic ulcer of other part of unspecified foot with unspecified severity Status: Acute (3) CKD (chronic kidney disease) stage 4, GFR 15-29 ml/min ICD Code: N18.4 - Chronic kidney disease, stage 4 (severe) Status: Acute (4) H/O deep venous thrombosis ICD Code: Z86.718 - Personal history of other venous thrombosis and embolism (5) DM (diabetes mellitus) ICD Code: E11.9 - Type 2 diabetes mellitus without complications Assessment and Plan A/P: 1. Left Foot Cellulitis: w/ left foot ulcer, ongoing for approx 2wks, X-ray 11/27/17 w/ soft tissue swelling, no fracture, images reviewed by me. S/p Blood Cultures, Vanc/Levaquin in ER. Follow up cultures, continue IV Abx. Consults already placed for ID and Podiatry for further evaluation/intervention. 2. H/o DVT: On Eliquis, LE Doppler 5/7/18 w/ no evidence of DVT. Continue w/ Eliquis. 3. Hypokalemia: K+ 2.8, s/p replacement in ER, will recheck and replace as needed. 4. CKD: Stage IV, RUE AV Fistula, pending HD. Creatinine at baseline. Will monitor I/O, repeat labs in am. 5. DM: Sliding scale w/ Accu-Cheks 6. DVT Prophylaxis: On Eliquis 7. Social work for d/c planning as needed. 8. Case discussed w/ day physician at sign out, labs/records/imaging reviewed by me. Physician Certification 2 Midnight Certification Type: Admission for Inpatient Services Order for Inpatient Services The services are ordered in accordance with Medicare regulations or non- Medicare payer requirements, as applicable. In the case of services not specified as inpatient-only, they are appropriately provided as inpatient services in accordance with the 2-midnight benchmark. Estimated LOS (days): 2 days is the estimated time the patient will need to remain in the hospital, assuming treatment plan goals are met and no additional complications. Post-Hospital Plan: Not yet determined Cayla Guerrero MD December 01, 2017 19:18
[2017-12-01] MEDS ORDERED: ONDANSETRON ODT 4 MG TAB PO PRN (20:00)
[2017-12-01] MEDS: traMADol HCL 50 MG TAB PO PRN (20:03)
--- NOTE | 2017-12-01 20:23 | RADRPT ---
EXAM DATE/TIME: 12/01/2017 19:24 [facility] COMPARISON: US KIDNEY/RENAL/BLADDER, November 07, 2017, 17:08. INDICATIONS : Elevated labs. MEDICAL HISTORY : Congestive heart failure. Myocardial infarction. Hypercholesterolemia. HTN. Renal failure. Kidney can cer. SURGICAL HISTORY : Cholecystectomy. section. CABG. Partial nephrectomy. ENCOUNTER: Subsequent ACUITY: 1 month PAIN SCORE: 0/10 LOCATION: Bilateral flank MEASUREMENTS: RIGHT KIDNEY: 11.1 x 6.0 x 6.6 cm LEFT KIDNEY: 11.5 x 4.6 x 6.2 cm FINDINGS: RIGHT KIDNEY: The kidney is diffusely echogenic. No hydronephrosis. 2 cm simple cyst seen involving the lower pole. LEFT KIDNEY: The kidney is diffusely echogenic. No hydronephrosis. 7 mm echogenic focus involving a lower pole beatris yx consistent with a nonobstructing stone. Scattered small cortical renal cyst. The largest measures 2.2 cm within the midpole. BLADDER: Within normal limits given the degree of distension. CONCLUSION: 1. Echogenic kidneys consistent with underlying medical renal disease. No obstruction. 2. Bilateral small renal cysts. 3. Tiny nonobstructing left renal stone. Jacob Funes Jr., MD on December 01, 2017 at 20:19 Board Certified Radiologist. This report was verified electronically.
[2017-12-01] MEDS ORDERED: Vancomycin Consult Pharmacy 1 EA OTHER SCH (20:30)
[2017-12-01] MEDS: INSULIN ASPART SUPPLEMENTAL SCALE SQ SCH (21:00)
[2017-12-01] MEDS ORDERED: VANCOMYCIN 500 MG/NS 100 ML IV ONE ×2 (21:00)
[2017-12-01] MEDS: DOCUSATE SODIUM 50 MG/SENNA 8.6 MG TAB PO SCH (23:44)
[2017-12-01] MEDS: SODIUM CHLORIDE 0.9% FLUSH 10 ML FLUSH IV FLUSH SCH (23:44)
[2017-12-01] MEDS: APIXABAN 5 MG TABLET PO SCH (23:44)
[2017-12-01] MEDS: TOPIRAMATE 25 MG TAB PO SCH (23:45)
[2017-12-01] MEDS: PARICALCITOL 1 MCG CAP PO SCH (23:46)
[2017-12-02] VITALS: BP 115/69; PULSE 89; RESP 16; TEMP 98.8; O2SAT 98
[2017-12-02 03:30] VITALS: BP 112/62; PULSE 80; RESP 16; TEMP 97.6; O2SAT 99
[2017-12-02] MEDS: traMADol HCL 50 MG TAB PO PRN (06:46)
[2017-12-02 07:34] LABS: AUTOMATED NEUTROPHIL # 4.1 TH/MM3 (1.8-7.7); BASOPHIL # 0.1 TH/MM3 (0-0.2); BASOPHIL % 0.9 % (0.0-2.0); EOSINOPHIL # 0.2 TH/MM3 (0-0.4); EOSINOPHIL % 2.4 % (0.0-4.0); LYMPH % 29.5 % (9.0-44.0); LYMPHOCYTE # 2.1 TH/MM3 (1.0-4.8); MEAN CELL VOLUME 86.5 FL (80.0-100.0); MEAN CORPUSCULAR HGB CONC 33.5 % (32.0-36.0); MEAN PLATELET VOLUME 7.4 FL (7.0-11.0); MONO % 8.7 % (0.0-8.0); MONOCYTE # 0.6 TH/MM3 (0-0.9); NEUT % 58.5 % (16.0-70.0); PLATELET COUNT 361 TH/MM3 (150-450); RED BLOOD COUNT 3.46 MIL/MM3 (4.50-5.90); RED CELL DISTRIBUTION WIDTH 14.8 % (11.6-17.2)
[2017-12-02 07:58] LABS: ALBUMIN 1.8 GM/DL (3.4-5.0); AST (GOT) 12 U/L (15-37); BICARBONATE 19.2 MEQ/L (21.0-32.0); BLOOD UREA NITROGEN 23 MG/DL (7-18); CALCIUM 7.8 MG/DL (8.5-10.1); CHLORIDE 116 MEQ/L (98-107); CREATININE 4.04 MG/DL (0.60-1.30); GLOMERULAR FILTRATION RATE 17 ML/MIN (>89); GLUCOSE,RANDOM 79 MG/DL (74-106); MAGNESIUM 1.9 MG/DL (1.5-2.5); SODIUM (NA) 145 MEQ/L (136-145)
[2017-12-02 08:00] LABS: ALKALINE PHOSPHATASE 100 U/L (45-117); ALT (GPT) 12 U/L (12-78); PHOSPHORUS 3.9 MG/DL (2.5-4.9); RANDOM VANCOMYCIN 23.2 COMMENT; TOTAL BILIRUBIN ADULT 0.1 MG/DL (0.2-1.0); TOTAL PROTEIN 5.7 GM/DL (6.4-8.2)
[2017-12-02] MEDS: INSULIN ASPART SUPPLEMENTAL SCALE SQ SCH ×4 (08:03→21:00)
[2017-12-02] MEDS: APIXABAN 5 MG TABLET PO SCH ×2 (08:10→20:52)
[2017-12-02] MEDS: SERTRALINE HCL 100 MG TAB PO SCH (08:10)
[2017-12-02] MEDS: DOCUSATE SODIUM 50 MG/SENNA 8.6 MG TAB PO SCH ×2 (08:11→20:53)
[2017-12-02] MEDS: LORATADINE 10 MG TAB PO SCH (08:11)
[2017-12-02] MEDS: SODIUM BICARBONATE 325 MG TAB PO SCH ×2 (08:11→17:46)
[2017-12-02] MEDS: TOPIRAMATE 25 MG TAB PO SCH ×2 (08:11→20:52)
[2017-12-02] MEDS: ASPIRIN 81 MG CHEW TAB CHEW SCH (08:11)
[2017-12-02] MEDS: SODIUM CHLORIDE 0.9% FLUSH 10 ML FLUSH IV FLUSH SCH ×2 (08:12→20:53)
--- NOTE | 2017-12-02 09:05 | HHI.PR ---
Subjective Remarks Follow-up diabetic foot infection. Requesting stronger pain medicine currently on tramadol. Counseled regarding narcotic states he was able to tolerate Lortab previously Objective Vitals Vital Signs Date Time Temp Pulse Resp B/P (MAP) Pulse Ox O2 Delivery O2 Flow Rate FiO2 12/02/17 03:30 97.6 80 16 112/62 (79) 99 12/02/17 00:00 98.8 89 16 115/69 (84) 98 12/01/17 22:00 97.7 93 16 110/64 (79) 97 12/01/17 20:04 12/01/17 19:01 86 18 124/85 (98) 99 Room Air 12/01/17 18:35 100 21 12/01/17 18:32 80 18 99 Room Air 12/01/17 15:54 100 Room Air 12/01/17 15:54 100 Room Air 12/01/17 15:21 98 18 112/64 (80) 98 Room Air 12/01/17 13:06 98.4 98 19 96/52 (67) 99 I/O 12/01/17 12/01/17 12/01/17 12/02/17 12/02/17 12/02/17 07:00 15:00 23:00 07:00 15:00 23:00 Intake Total 1800 ml 500 ml Output Total 0 ml 2000 ml Balance 1800 ml -1500 ml Intake Oral 600 ml 500 ml IV Total 1200 ml Output Urine Total 0 ml 2000 ml # Bowel Movements 0 0 Result Diagram: 12/02/17 0631 12/02/17 0631 Imaging Last Impressions Renal Ultrasound 12/01/17 0000 Signed Impressions: Service Date/Time: Friday, December 01, 2017 19:24 - CONCLUSION: 1. Echogenic kidneys consistent with underlying medical renal disease. No obstruction. 2. Bilateral small renal cysts. 3. Tiny nonobstructing left renal stone. Jacob Funes Jr., MD Objective Remarks GENERAL: Young male in no acute distress. HEENT: PERRLA, EOMI. No scleral icterus or conjunctival pallor. No lid lag or facial droop. CARDIOVASCULAR: Regular rate and rhythm. No obvious murmurs to auscultation. No chest tenderness to palpation. RESPIRATORY: No obvious rhonchi or wheezing. Clear to auscultation. Breath sounds equal bilaterally. GASTROINTESTINAL: Abdomen soft, non-tender, nondistended. BS normal. MUSCULOSKELETAL: Extremities without clubbing, cyanosis, or edema. No obvious deformities. Left foot w/ erythema/edema +heel ulceration (eschar), no drainage noted. NEUROLOGICAL: Awake, alert and oriented x4. No focal neurologic deficits. Moving both upper and lower extremities spontaneously. Procedures none A/P Problem List: (1) Cellulitis of left foot ICD Code: L03.116 - Cellulitis of left lower limb; L97.509 - Non-pressure chronic ulcer of other part of unspecified foot with unspecified severity Status: Acute (2) Hypokalemia ICD Code: E87.6 - Hypokalemia; L97.509 - Non-pressure chronic ulcer of other part of unspecified foot with unspecified severity Status: Acute (3) CKD (chronic kidney disease) stage 4, GFR 15-29 ml/min ICD Code: N18.4 - Chronic kidney disease, stage 4 (severe) Status: Acute (4) H/O deep venous thrombosis ICD Code: Z86.718 - Personal history of other venous thrombosis and embolism (5) DM (diabetes mellitus) ICD Code: E11.9 - Type 2 diabetes mellitus without complications Assessment and Plan This is a 37-year-old male with a PMH of HTN, DM, h/o DVT on Eliquis, CKD Stage IV and Left Foot Ulcer who was referred to the ER by his Canoe Inspector Final for evaluation of left foot infection. Seen in the ER on 11/27/2017 for similar complaints, X-ray of foot and ankle with no evidence of fracture, LE Doppler negative for DVT, symptoms thought to be due secondary to ankle sprain and was ultimately discharged from the ER. States symptoms have been ongoing for the last 2 weeks. Denies fever or chills. Was seen again by Canoe Inspector Final referred to the ER for likely foot infection. On arrival, BP 111/64, HR 98, O2 sat 98% on RA, Afebrile. WBC 9.2. K+ 2.8. Creatinine 4.09, previously 3.26 on 11/14/2017. Lactic acid normal. S/p Blood Cultures, Vanc/Levaquin in ER. 1. Left Foot Cellulitis: w/ left foot ulcer, ongoing for approx 2wks, X-ray 11/27/17 w/ soft tissue swelling, no fracture, images reviewed by me. S/p Blood Cultures, Vanc/Levaquin in ER. Follow up cultures, continue IV Abx. Consults already placed for ID and Podiatry for further evaluation/intervention. MRI pending 3 2. H/o DVT: On Eliquis, LE Doppler 11/27/17 w/ no evidence of DVT. Continue w/ Eliquis dw pt to clarify with PCP dc date. States he developed DVT once only ab 3out a year ago when he was comatose from CVA. 3. Hypokalemia: K+ 2.8, s/p replacement in ER, will recheck and replace as needed. 4. CKD: Stage IV, RUE AV Fistula, pending HD. Creatinine at baseline. Will monitor I/O, repeat labs in am. 5. DM: Sliding scale w/ Accu-Cheks 6. DVT Prophylaxis: On Eliquis Discharge Planning Dc when cleared by consultants Kvng Larose MD December 02, 2017 09:05
--- NOTE | 2017-12-02 10:49 | PD.CONS ---
[facility] Service Nephrology Consult Requested By Dr. Otto Reason for Consult Acute kidney injury Primary Care Physician Brittany Lovelace MD History of Present Illness Patient is a 37-year-old male with a past medical history of hypertension, diabetes, h/o DVT on Eliquis, chronic kidney disease Stage IV with AVF in right arm. , blindness in right eye, diabetic retinopathy, and Left Foot Ulcer. Was referred to the ER by his [employer] for evaluation of left foot wound and infection. Nephrology was consulted for acute kidney injury with a creatinine of 4.04 today, potassium 3.5, and CO2 at 19.2. On admission creatinine was 3.4 which I suspect is his baseline. Patient has had recent admission in September for DKA and had dialysis X 2. He also has a AVF in right arm with good thrill and bruit. AVF has never been used and according to patient not ready for use. His underlying chronic kidney disease is likely due to diabetic nephropathy. He is followed by Demolition [employer] Dr. Garsia in [place] and was last seen in July. (Jazlyn De Anda) Review of Systems Constitutional: COMPLAINS OF: Fatigue Respiratory: DENIES: Cough, Sputum production, Shortness of breath Cardiovascular: COMPLAINS OF: Lower Extremity Edema Gastrointestinal: DENIES: Abdominal pain, Diarrhea, Nausea, Vomiting Genitourinary: DENIES: Urgency, Hematuria, Dysuria (Jazlyn De Anda) Past Family Social History Allergies: Coded Allergies: amoxicillin (Verified Allergy, Severe, Rash, 12/01/17) broccoli (Verified Allergy, Severe, ANAPHYLAXIS, 12/01/17) mushroom (Verified Allergy, Severe, ANAPHYLAXIS, 12/01/17) penicillin G (Verified Allergy, Severe, Hives, 12/01/17) *MDRO Multi-Drug Resistant Organism (Verified Adverse Reaction, Unknown, ) MRSA 06/2014 and 11/2009. MRSA PCR Screen positive 05/21/15. Past Medical History Diabetes, insulin-dependent Chronic kidney disease stage III to IV Hypertension Hyperlipidemia Chronic metabolic acidosis History of DVT in left lower extremity Retinal detachments Scoliosis Erectile dysfunction Left foot drop Peripheral neuropathy History of seizures from hypoglycemia History of CVA Posttraumatic stress disorder Anxiety/depression Past Surgical History AV fistula in right upper extremity Left eye surgery Right foot surgery Active Ordered Medications Current Medications Medications (Trade) Dose Ordered Sig/Josette Route Start Time Stop Time Status Last Admin (Xanax) 0.5 mg Q6H PRN PO 12/01/17 18:30 12/01/17 23:45 (Eliquis) 5 mg BID PO 12/01/17 21:00 12/02/17 08:10 (Aspirin Chew) 81 mg DAILY CHEW 12/02/17 09:00 12/02/17 08:11 (Claritin) 10 mg DAILY PO 12/02/17 09:00 12/02/17 08:11 (Zoloft) 100 mg DAILY PO 12/02/17 09:00 12/02/17 08:10 (Sodium Bicarbonate) 325 mg BIDPC PO 12/02/17 09:00 12/02/17 08:11 (Topamax) 150 mg BID PO 12/01/17 21:00 12/02/17 08:11 (Ultram) 50 mg Q6H PRN PO 12/01/17 18:30 12/02/17 06:46 (Vitamin D3) 50,000 units Q7D PO 12/08/17 09:00 (Zofran Odt) 4 mg Q6H PRN PO 12/01/17 20:00 (Zemplar) 4 mcg HS PO 12/01/17 21:00 12/01/17 23:46 (NS Flush) 2 ml UNSCH PRN IV FLUSH 12/01/17 18:30 12/01/17 23:44 (NS Flush) 2 ml BID IV FLUSH 12/01/17 21:00 12/02/17 08:12 (Tylenol) 650 mg Q4H PRN PO 12/01/17 18:30 (Narcan Inj) 0.4 mg UNSCH PRN IV PUSH 12/01/17 18:30 (Margarita-Colace) 1 tab BID PO 12/01/17 21:00 12/01/17 23:44 (Senokot) 17.2 mg Q12H PRN PO 12/01/17 18:30 (Dulcolax Supp) 10 mg DAILY PRN RECTAL 12/01/17 18:30 (Lactulose Liq) 30 ml DAILY PRN PO 12/01/17 18:30 (D50w (Vial) Inj) 50 ml UNSCH PRN IV PUSH 12/01/17 18:30 (Glucagon Inj) 1 mg UNSCH PRN OTHER 12/01/17 18:30 (NovoLOG SUPPLEMENTAL SCALE) 1 ACHS SLIDING SCALE SQ 12/01/17 21:00 Pharmacy Profile Note ml @ 0 mls/hr UNSCH OTHER 12/01/17 20:30 Levofloxacin/ Dextrose 50 ml @ 50 mls/hr Q24H IV 12/02/17 18:00 Social History Occasional vapor Occasional ETOH Denies other illicit drugs (Jazlyn De Anda) Physical Exam Vital Signs Vital Signs Date Time Temp Pulse Resp B/P (MAP) Pulse Ox O2 Delivery O2 Flow Rate FiO2 12/02/17 03:30 97.6 80 16 112/62 (79) 99 12/02/17 00:00 98.8 89 16 115/69 (84) 98 12/01/17 22:00 97.7 93 16 110/64 (79) 97 12/01/17 20:04 12/01/17 19:01 86 18 124/85 (98) 99 Room Air 12/01/17 18:35 100 21 12/01/17 18:32 80 18 99 Room Air 12/01/17 15:54 100 Room Air 12/01/17 15:54 100 Room Air 12/01/17 15:21 98 18 112/64 (80) 98 Room Air 12/01/17 13:06 98.4 98 19 96/52 (67) 99 Physical Exam GENERAL: Alert and oriented SKIN: Warm and dry. Wound on left heel. AVF in right arm HEAD: Normocephalic. EYES: No scleral icterus. No injection or drainage. NECK: Supple, trachea midline. No JVD or lymphadenopathy. CARDIOVASCULAR: Regular rate and rhythm without murmurs, gallops, or rubs. RESPIRATORY: Breath sounds equal bilaterally. No accessory muscle use. GASTROINTESTINAL: Abdomen soft, non-tender, nondistended. MUSCULOSKELETAL: No cyanosis. Edema left lower extremity BACK: Nontender without obvious deformity. No CVA tenderness. Laboratory Laboratory Tests Test 12/01/17 16:00 12/02/17 06:31 White Blood Count 9.2 7.0 Red Blood Count 3.40 3.46 Hemoglobin 9.7 10.0 Hematocrit 29.3 30.0 Mean Corpuscular Volume 86.0 86.5 Mean Corpuscular Hemoglobin 28.5 29.0 Mean Corpuscular Hemoglobin Concent 33.2 33.5 Red Cell Distribution Width 14.4 14.8 Platelet Count 425 361 Mean Platelet Volume 7.6 7.4 Neutrophils (%) (Auto) 58.9 58.5 Lymphocytes (%) (Auto) 31.7 29.5 Monocytes (%) (Auto) 6.6 8.7 Eosinophils (%) (Auto) 2.2 2.4 Basophils (%) (Auto) 0.6 0.9 Neutrophils # (Auto) 5.4 4.1 Lymphocytes # (Auto) 2.9 2.1 Monocytes # (Auto) 0.6 0.6 Eosinophils # (Auto) 0.2 0.2 Basophils # (Auto) 0.1 0.1 CBC Comment DIFF FINAL DIFF FINAL Differential Comment Erythrocyte Sedimentation Rate GREATER THAN 140 Prothrombin Time 11.4 Prothromb Time International Ratio 1.1 Activated Partial Thromboplast Time 31.0 Blood Urea Nitrogen 26 23 Creatinine 4.09 4.04 Random Glucose 200 79 Total Protein 6.2 5.7 Albumin 2.1 1.8 Calcium Level 8.1 7.8 Alkaline Phosphatase 110 100 Aspartate Amino Transf (AST/SGOT) 14 12 Alanine Aminotransferase (ALT/SGPT) 14 12 Total Bilirubin 0.1 0.1 Sodium Level 136 145 Potassium Level 2.8 3.5 Chloride Level 104 116 Carbon Dioxide Level 22.7 19.2 Anion Gap 9 10 Estimat Glomerular Filtration Rate 17 17 Lactic Acid Level 0.7 C-Reactive Protein 1.90 Phosphorus Level 3.9 Magnesium Level 1.9 Random Vancomycin Level 23.2 Date/Time Source Procedure Growth Status 12/01/17 16:05 Blood Peripheral Aerobic Blood Culture Pending Received 12/01/17 16:05 Blood Peripheral Anaerobic Blood Culture Pending Received (Jazlyn De Anda) Result Diagram: 12/02/17 0631 12/02/17 0631 Imaging Last Impressions Renal Ultrasound 12/01/17 0000 Signed Impressions: Service Date/Time: Friday, December 01, 2017 19:24 - CONCLUSION: 1. Echogenic kidneys consistent with underlying medical renal disease. No obstruction. 2. Bilateral small renal cysts. 3. Tiny nonobstructing left renal stone. Jacob Funes Jr., MD (Jazlyn De Anda) Assessment and Plan Problem List: (1) CKD (chronic kidney disease) stage 4, GFR 15-29 ml/min ICD Codes: N18.4 - Chronic kidney disease, stage 4 (severe) Status: Acute Plan: Acute kidney injury with a creatinine of 4.04 , potassium 3.5, and CO2 at 19.2 on day of consult. LARS possible ATN from infection. His underlying chronic kidney disease is likely due to diabetic nephropathy. He is followed by [facility] Dr. Garsia in [place] and was last seen in July. On admission creatinine was 3.4 which I suspect is his baseline. Patient has had recent admission in September for DKA and had dialysis X 2. He also has a AVF in right arm with good thrill and bruit. AVF has never been used and according to patient not ready for use. Renal US with echogenic kidneys consistent with underlying medical renal disease. No obstruction, bilateral small renal cysts, and tiny nonobstructing left renal stone. Plan Will monitor renal panel and urinary output UA C+S Renal diet Fluids encouraged Continue sodium bicarbonate No urgent need for dialysis at this point will monitor (2) Diabetic foot ulcer ICD Codes: E11.621 - Type 2 diabetes mellitus with foot ulcer; L97.509 - Non- pressure chronic ulcer of other part of unspecified foot with unspecified severity Status: Acute Plan: Podiatry consulted (3) DM (diabetes mellitus) ICD Codes: E11.9 - Type 2 diabetes mellitus without complications Plan: Maintain blood sugars at 140 mg/dl to 180mg/dl (Jazlyn De Anda) Problem List: (1) CKD (chronic kidney disease) stage 4, GFR 15-29 ml/min ICD Codes: N18.4 - Chronic kidney disease, stage 4 (severe) Status: Acute Plan: Acute kidney injury with a creatinine of 4.04 , potassium 3.5, and CO2 at 19.2 on day of consult. LARS possible ATN from infection. His underlying chronic kidney disease is likely due to diabetic nephropathy. He is followed by Dem[facility] [employer] Dr. Garsia in [place] and was last seen in July. On admission creatinine was 3.4 which I suspect is his baseline. Patient has had recent admission in September for DKA and had dialysis X 2. He also has a AVF in right arm with good thrill and bruit. AVF has never been used and according to patient not ready for use. Renal US with echogenic kidneys consistent with underlying medical renal disease. No obstruction, bilateral small renal cysts, and tiny nonobstructing left renal stone. Plan Will monitor renal panel and urinary output UA C+S Renal diet Fluids encouraged Continue sodium bicarbonate No urgent need for dialysis at this point will monitor. Patient seen and examined, agree with above, Patient has stage 4 chronic kidney disease. Has been following with [place] [facility]. Has some LARS, continue IVF. (2) Diabetic foot ulcer ICD Codes: E11.621 - Type 2 diabetes mellitus with foot ulcer; L97.509 - Non- pressure chronic ulcer of other part of unspecified foot with unspecified severity Status: Acute Plan: Podiatry consulted (3) DM (diabetes mellitus) ICD Codes: E11.9 - Type 2 diabetes mellitus without complications Plan: Maintain blood sugars at 140 mg/dl to 180mg/dl (Jackie Gifford MD) Jazlyn De Anda December 02, 2017 10:49 Jackie Gifford MD December 02, 2017 18:41
--- NOTE | 2017-12-02 10:51 | RADRPT ---
EXAM DATE/TIME: 12/02/2017 10:08 [facility] COMPARISON: FOOT LEFT COMPLETE ([id number]), November 27, 2017, 13:36. INDICATIONS : Cellulitis. Infection to left foot. MEDICAL HISTORY : Diabetes mellitus type II. SURGICAL HISTORY : None. ENCOUNTER: Subsequent ACUITY: 4 - 6 days PAIN SCORE: 6/10 LOCATION: Left lateral FINDINGS: Three view examination of the left foot demonstrates no soft tissue swelling, dislocation, or fractur e. The tarsal bones appear intact. The interphalangeal and metatarsophalangeal joints are intact. The calcaneus is intact. Bony mineralization is normal. There is focal soft tissue edema identified along the plantar aspect of the calcaneus. CONCLUSION: Focal soft tissue edema overlying the plantar aspect of the calcaneus which appears progressive from prior exam. No evidence of osteomyelitis or retained foreign body. Casi Enriquez MD on December 02, 2017 at 10:47 Board Certified Radiologist. This report was verified electronically.
--- NOTE | 2017-12-02 10:57 | MB ---
cc: Minerva Truong DPM DATE: 12/02/2017 CHIEF COMPLAINT: Left foot ulceration. HISTORY OF PRESENT ILLNESS: Mr. Watkins is a 37-year-old male patient with a history of diabetes and neuropathy. He was referred to the ER by his parts analyst due to a left foot infection. He states that he just noticed these symptoms about a week ago and is unsure exactly how it started, but states that he does spend a lot of time in bed watching TV. It sounds like it was a very significant portion of his day plus sleeping in that same bed may have led to a pressure wound. The patient states that it is spin tank tender to touch and swollen, but less than it was on admission. PAST MEDICAL HISTORY: Includes hypertension, diabetes mellitus, history of DVT on Eliquis, chronic kidney disease, left foot ulcer and neuropathy, history of MRSA. PAST SURGICAL HISTORY: Includes right foot surgery, left eye surgery and right upper extremity AV fistula. MEDICATIONS: Please see list. ALLERGIES: AMOXICILLIN, BROCCOLI, MUSHROOMS, PENICILLIN. FAMILY HISTORY: Noncontributory. SOCIAL HISTORY: The patient denies any alcohol or illicit drug abuse, but does have a history of marijuana. PHYSICAL EXAMINATION: VITAL SIGNS: Temperature is 97.6, pulse is 80, respiratory rate 16, blood pressure 112/62, pulse oximetry 99% O2 on room air. EXTREMITIES: The patient has palpable DP and PT pulses. Capillary refill time less than 3 seconds. Gross sensation is severely diminished. On the posterolateral aspect of the heel, there is a full thickness sizable eschar, approximately 3 x 3 cm. No drainage, no erythema, no fluctuance. There is edema to the rearfoot and ankle. There is tenderness with palpation. LABORATORY DATA: White count 7.0, hemoglobin 10.0, hematocrit 30.0, and platelets 361. INR 1.1. Sodium 145, chloride 116, carbon dioxide 19.2, BUN 23. C-reactive protein 1.9. IMAGING STUDIES: Foot x-rays are pending. ASSESSMENT: Left foot, stable shower with resolving infection. PLAN: 1. Continue antibiotics as per medical team. 2. Dressing changes ordered. 3. Educated the patient on reducing pressure of the foot using floating heel techniques and varying his activity pattern. 4. Wound appears stable at this time. If the x-rays are negative for any gas or osteomyelitis, no further intervention is needed. It will take time for this eschar to resolve, but it should resolve naturally so long as the infection is cleared and the pressure is reduced. The patient was educated on this as well. Thank you for this consultation and allowing us to be involved in this patient's care. Due to the patient's insurance, I do advise a followup at the [facility] at time of discharge. ENEIDA Fleming/REBECA , 10:33 AM , 10:57 AM
[2017-12-02 12:30] VITALS: BP 113/75; PULSE 96; RESP 18; TEMP 98; O2SAT 98
[2017-12-02] MEDS: ACETAMINOPHEN/HYDROcodone 325 MG/5 MG TAB PO PRN ×2 (14:43→22:12)
--- NOTE | 2017-12-02 15:57 | MB ---
cc: Nader Gama MD DATE: 12/02/2017 REQUESTING PHYSICIAN: Dr. Irizarry. REASON FOR CONSULTATION: Right foot ulcer. Possible osteomyelitis. HISTORY OF PRESENT ILLNESS: This is a 37-year-old white male who has end-stage renal disease. The patient was sent to the Emergency Department by his payroll examiner in [place] because he has an ulcerative wound on his left heel. This is at the plantar aspect. The patient has diabetes mellitus. The reason he was sent to the Emergency Department was for antibiotic treatment. He has no fever or chills and his white blood cell count is normal. He has elevated sedimentation rate and elevated C-reactive protein. A plain x-ray of the left foot was performed and it shows soft tissue edema overlying the plantar aspect of the calcaneus, which appears progressive from prior exam. No evidence of osteomyelitis or retained foreign body was noted. Sedimentation rate is greater than 140. Blood cultures taken on 12/01/2017 have no growth. The patient states that he feels fine. He has chronic kidney disease and he had a fistula placed in the upper extremity for dialysis, but he is felt not to be in need of dialysis yet. His creatinine is 4.04 and estimated GFR is 17. He tells me that he makes a good amount of urine. There has been no drainage or oozing from the skin where the ulcer is located. It is dry and necrotic, measuring approximately the size of a dollar coin. The patient notes that there were some red streaks going up his lateral calf on the left side. PAST MEDICAL AND SURGICAL HISTORY: Diabetes mellitus, diabetic neuropathy, diabetic retinopathy, hypertension, chronic kidney disease stage IV, history of DVT, history of right foot calcaneus fracture repair with screws, left eye surgery, right upper extremity AV fistula, complete blindness in the right eye and partial blindness in the left, history of MRSA neck wound in 2013. ALLERGIES: PENICILLIN, AMOXICILLIN, MUSHROOM AND BROCCOLI. MEDICATIONS: 1. Levaquin IC. 2. Vitamin D3. 3. Aspirin. 4. Claritin. 5. Zoloft. 6. Sodium bicarbonate. 7. Eliquis. 8. Topamax. 9. Paricalcitol. 10. Margarita-Colace. 11. Ultram. 12. Xanax. 13. Vancomycin IV dose was given on 12/01/2017. SOCIAL HISTORY: No tobacco use. The patient occasionally uses vape. No alcohol. No illicit drugs. FAMILY HISTORY: Noncontributory. REVIEW OF SYSTEMS: Negative on 10-point review. PHYSICAL EXAMINATION: GENERAL: This is a well-developed male in no acute distress. VITAL SIGNS: Temperature 97.6, BP 112/62, respirations 16, heart rate 80. HEENT: Extraocular movements are grossly intact. Pupils reactive to light. No icterus. Oropharynx: Moist mucosa without lesions. NECK: Supple without adenopathy. LUNGS: Clear to auscultation. CARDIOVASCULAR: Regular S1 and S2, without murmurs, rubs or gallops. ABDOMEN: Bowel sounds present. Soft, nontender. RECTAL: Not performed. EXTREMITIES: The left leg has 2+ edema at the foot, ankle and tibia. There is an ulceration with necrotic scab overlying the ulcerated area which is dry. No erythema is visible at the site. SKIN: No rash. NEUROLOGIC: No gross focal finding. PSYCHIATRIC: The patient is calm and cooperative. LABORATORY DATA: WBC 7.0, platelets 361, 58% neutrophils, 29% lymphocytes. Creatinine 4.04, BUN 23, sodium 145. LFTs normal. IMPRESSION: Ulceration of the left foot. Patient with history of diabetes mellitus. Plain films of the foot did not show evidence of osteomyelitis, but soft tissue edema. RECOMMENDATIONS: Obtain MRI of the foot to make sure he does not have osteomyelitis. The ulceration appears to be dry and really does not look infected, but the patient mentioned that he did have red streaks going up his leg and he may have developed cellulitis. I see no erythema currently. He has been given vancomycin and is currently on Levaquin. I would await results of the MRI to see if there is osteomyelitis. If there is no osteomyelitis present, then we can convert the patient to oral antibiotic. If there are signs of osteomyelitis, we may need to get a biopsy to determine appropriate antibiotic treatment since he will require a prolonged course of antibiotics. Thank you for this consultation. I will follow the progress. I have ordered an MRI. MD HILARY Rojas/REBECA , 12:27 PM , 03:56 PM
--- NOTE | 2017-12-02 16:31 | RADRPT ---
EXAM DATE/TIME: 12/02/2017 15:46 [facility] COMPARISON: No previous studies available for comparison. INDICATIONS : Osteomyelitis. MEDICAL HISTORY : Diabetes mellitus type 1. SURGICAL HISTORY : Right foot, left eye. ENCOUNTER: Initial ACUITY: 1 day PAIN SCORE: 0/10 LOCATION: Left foot TECHNIQUE: Multiplanar, multisequence MRI examination was performed without contrast. FINDINGS: Large wound is seen lateral aspect of the calcaneus with extensive subcutaneous edema that extends to the cortical surface of the calcaneus and does touch the plantar insertion of the plantar apparatuse s. No definite abscess is evident. The forefoot is unremarkable. The tibial plafond and talus appear normal. CONCLUSION: Cellulitis with soft tissue inflammatory changes large wound lateral aspect of the calcaneus and does extend to the calcaneus without evidence for osteomyelitis. Again this does touch the cortical surf feliciano of the calcaneus as well as the insertion of the plantar aponeurosis. Ulysses Peralta MD FACR on December 02, 2017 at 16:26 Board Certified Radiologist. This report was verified electronically.
[2017-12-02] MEDS: LEVOFLOXACIN/DEXTROSE 250 MG/50 ML IV SCH (17:47)
--- NOTE | 2017-12-02 18:30 | EKG ---
Date Performed: 12/01/2017 Time Performed: 17:27:40 PTAGE: 37 years EKG: Sinus rhythm NONSPECIFIC T-WAVE ABNORMALITY BORDERLINE ECG Since the PREVIOUS TRACING , no significant change noted DOCTOR: Eunice Castrejon Interpretating Date/Time 12/02/2017 18:29:12
[2017-12-02 20:00] VITALS: BP 144/87; PULSE 87; RESP 18; TEMP 97.5; O2SAT 96
[2017-12-02 20:02] VITALS: O2SAT 97
[2017-12-02] MEDS: PARICALCITOL 1 MCG CAP PO SCH (20:53)
[2017-12-03] VITALS (7 sets, daily range): BP systolic 126–175; BP diastolic 61–96; PULSE 78–94; RESP 18; TEMP 97.3–97.9; O2SAT 97–99
[2017-12-03] MEDS: ACETAMINOPHEN/HYDROcodone 325 MG/5 MG TAB PO PRN ×2 (04:44→09:02)
[2017-12-03 07:37] LABS: ALBUMIN 1.7 GM/DL (3.4-5.0); BICARBONATE 20.6 MEQ/L (21.0-32.0); CALCIUM 8.1 MG/DL (8.5-10.1); CREATININE 4.01 MG/DL (0.60-1.30)
[2017-12-03 07:40] LABS: PHOSPHORUS 4.2 MG/DL (2.5-4.9); RANDOM VANCOMYCIN 16.8 COMMENT
[2017-12-03] MEDS: LORATADINE 10 MG TAB PO SCH (08:58)
[2017-12-03] MEDS: SERTRALINE HCL 100 MG TAB PO SCH (08:58)
[2017-12-03] MEDS: APIXABAN 5 MG TABLET PO SCH ×2 (08:58→21:10)
[2017-12-03] MEDS: SODIUM BICARBONATE 325 MG TAB PO SCH ×2 (08:58→18:44)
[2017-12-03] MEDS: TOPIRAMATE 25 MG TAB PO SCH ×2 (09:02→21:10)
[2017-12-03] MEDS: ASPIRIN 81 MG CHEW TAB CHEW SCH (09:02)
[2017-12-03] MEDS: DOCUSATE SODIUM 50 MG/SENNA 8.6 MG TAB PO SCH ×2 (09:05→21:00)
[2017-12-03] MEDS: SODIUM CHLORIDE 0.9% FLUSH 10 ML FLUSH IV FLUSH SCH ×2 (09:05→21:11)
[2017-12-03] MEDS: INSULIN ASPART SUPPLEMENTAL SCALE SQ SCH ×4 (09:08→21:00)
--- NOTE | 2017-12-03 10:22 | HHI.PR ---
Subjective Remarks Follow-up for left foot ulceration and worsening CKD stage IV. Patient is currently doing well. No fever or chills. Objective Vitals Vital Signs Date Time Temp Pulse Resp B/P (MAP) Pulse Ox O2 Delivery O2 Flow Rate FiO2 12/03/17 08:00 97.8 83 18 140/82 (101) 97 12/03/17 04:00 97.9 81 18 175/96 (122) 98 12/03/17 00:00 97.3 94 18 126/61 (82) 99 12/02/17 20:02 97 21 12/02/17 20:00 97.5 87 18 144/87 (106) 96 12/02/17 12:30 98.0 96 18 113/75 (88) 98 12/02/17 12:09 21 I/O 12/02/17 12/02/17 12/02/17 12/03/17 12/03/17 12/03/17 07:00 15:00 23:00 07:00 15:00 23:00 Intake Total 500 ml Output Total 2000 ml Balance -1500 ml Intake Oral 500 ml Output Urine Total 2000 ml # Voids 6 # Bowel Movements 0 Result Diagram: 12/02/17 0631 12/03/17 0625 Imaging Last Impressions Foot X-Ray 12/02/17 0000 Signed Impressions: Service Date/Time: Saturday, December 02, 2017 10:08 - CONCLUSION: Focal soft tissue edema overlying the plantar aspect of the calcaneus which appears progressive from prior exam. No evidence of osteomyelitis or retained foreign body. Casi Enriquez MD Foot MRI 12/02/17 0000 Signed Impressions: Service Date/Time: Saturday, December 02, 2017 15:46 - CONCLUSION: Cellulitis with soft tissue inflammatory changes large wound lateral aspect of the calcaneus and does extend to the calcaneus without evidence for osteomyelitis. Again this does touch the cortical surface of the calcaneus as well as the insertion of the plantar aponeurosis. Ulysses Peralta MD FACR Renal Ultrasound 12/01/17 0000 Signed Impressions: Service Date/Time: Friday, December 01, 2017 19:24 - CONCLUSION: 1. Echogenic kidneys consistent with underlying medical renal disease. No obstruction. 2. Bilateral small renal cysts. 3. Tiny nonobstructing left renal stone. Jacob Funes Jr., MD Objective Remarks GENERAL: Alert, oriented 3, NAD. SKIN: Warm and dry. HEAD: Normocephalic. EYES: No scleral icterus. No injection or drainage. NECK: Supple, trachea midline. No JVD or lymphadenopathy. CARDIOVASCULAR: Regular rate and rhythm without murmurs, gallops, or rubs. RESPIRATORY: Breath sounds equal bilaterally. No accessory muscle use. GASTROINTESTINAL: Abdomen soft, non-tender, nondistended. MUSCULOSKELETAL: No cyanosis, or edema. There is a full-thickness eschar on the left heel. BACK: Nontender without obvious deformity. No CVA tenderness. Procedures none A/P Problem List: (1) Cellulitis of left foot ICD Code: L03.116 - Cellulitis of left lower limb; L97.509 - Non-pressure chronic ulcer of other part of unspecified foot with unspecified severity Status: Acute (2) Hypokalemia ICD Code: E87.6 - Hypokalemia; L97.509 - Non-pressure chronic ulcer of other part of unspecified foot with unspecified severity Status: Acute (3) CKD (chronic kidney disease) stage 4, GFR 15-29 ml/min ICD Code: N18.4 - Chronic kidney disease, stage 4 (severe) Status: Acute (4) H/O deep venous thrombosis ICD Code: Z86.718 - Personal history of other venous thrombosis and embolism (5) DM (diabetes mellitus) ICD Code: E11.9 - Type 2 diabetes mellitus without complications Assessment and Plan This is a 37-year-old male with a PMH of HTN, DM, h/o DVT on Eliquis, CKD Stage IV and Left Foot Ulcer who was referred to the ER by his [employer] for evaluation of left foot infection. On arrival, BP 111/64, HR 98, O2 sat 98% on RA, Afebrile. WBC 9.2. K+ 2.8. Creatinine 4.09, previously 3.26 on 2017. Lactic acid normal. S/p Blood Cultures, Vanc/Levaquin in ER. Left heel ulcerative wound - Appreciate ID and Podiatry. Currently patient is on Levaquin and Vancomycin. - With no leukocytosis, fever. No evidence of osteomyelitis. - Since creatinine is trending up, perhaps discontinuation of abx would be reasonable. - Will contact podiatry regarding obtaining biopsy per ID request. Acute on CKD - Creatinine continues to be high. Will discuss with ID to see if Vanc can be discontinued. - Nephrology is following. Diabetes mellitus - continue Sliding scale insulin. Will start low dose Levemir at night. Hx of DVT - currently on Apixaban 5mg BID. Full code. Apixaban. Nanda Hernandez DO December 03, 2017 10:22 am
--- NOTE | 2017-12-03 11:05 | HHI.NPPN ---
Subjective General Problems: Anemia, Diabetes Renal Failure: Chronic, Stage IV History of Present Illness Patient is a 37-year-old male with a past medical history of hypertension, diabetes, h/o DVT on Eliquis, chronic kidney disease Stage IV with AVF in right arm. , blindness in right eye, diabetic retinopathy, and Left Foot Ulcer. Was referred to the ER by his Palliative Care Coordinator for evaluation of left foot wound and infection. Nephrology was consulted for acute kidney injury with a creatinine of 4.04 today, potassium 3.5, and CO2 at 19.2. On admission creatinine was 3.4 which I suspect is his baseline. Patient has had recent admission in September for DKA and had dialysis X 2. He also has a AVF in right arm with good thrill and bruit. AVF has never been used and according to patient not ready for use. His underlying chronic kidney disease is likely due to diabetic nephropathy. He is followed by [employer] Developer Dr. Garsia in [place] and was last seen in July. Additional Remarks Patient is resting comfortably today with no complaints. (Jazlyn De Anda) Objective Data Data Vital Signs Date Time Temp Pulse Resp B/P (MAP) Pulse Ox O2 Delivery O2 Flow Rate FiO2 12/03/17 08:00 97.8 83 18 140/82 (101) 97 12/03/17 04:00 97.9 81 18 175/96 (122) 98 12/03/17 00:00 97.3 94 18 126/61 (82) 99 12/02/17 20:02 97 21 12/02/17 20:00 97.5 87 18 144/87 (106) 96 12/02/17 12:30 98.0 96 18 113/75 (88) 98 12/02/17 12:09 21 (Jazlyn De Anda) -: 12/02/17 0631 12/03/17 0625 Imaging Last Impressions Foot X-Ray 12/02/17 0000 Signed Impressions: Service Date/Time: Saturday, December 02, 2017 10:08 - CONCLUSION: Focal soft tissue edema overlying the plantar aspect of the calcaneus which appears progressive from prior exam. No evidence of osteomyelitis or retained foreign body. Casi Enriquez MD Foot MRI 12/02/17 0000 Signed Impressions: Service Date/Time: Saturday, December 02, 2017 15:46 - CONCLUSION: Cellulitis with soft tissue inflammatory changes large wound lateral aspect of the calcaneus and does extend to the calcaneus without evidence for osteomyelitis. Again this does touch the cortical surface of the calcaneus as well as the insertion of the plantar aponeurosis. Ulysses Peralta MD FACR Renal Ultrasound 12/01/17 0000 Signed Impressions: Service Date/Time: Friday, December 01, 2017 19:24 - CONCLUSION: 1. Echogenic kidneys consistent with underlying medical renal disease. No obstruction. 2. Bilateral small renal cysts. 3. Tiny nonobstructing left renal stone. Jacob Funes Jr., MD (Jazlyn De Anda) Physical Exam General Appearance: No Acute Distress, Comfortable (Jazlyn De AndaP) Throat Throat Exam: Oral Mucosa [place] & Moist (Jazlyn De Anda DATABASE MANAGER) Pulmonary Resp Exam: Breath Sounds Equal, No Distress, Decreased Bases (Jazlyn De AndaP) Cardiology CV Exam: Regular, Normal Sinus Rhythm (Jazlyn De Anda DATABASE MANAGER) Gastrointestinal/Abdomen GI Exam: Soft, Non-Tender, Bowel Sounds Present, Positive Bowel Movement (Jazlyn De AndaP) Genitourinary Exam: Flank Non-Tender (Jazlyn De AndaP) Integumentary Skin Exam: Clear, Warm Skin Remarks left heel ulcer (Jazlyn De AndaP) Extremeties Extremeties Remarks edema in left leg (Jazlyn De AndaP) Neurologic Neuro Exam: Alert, Awake (Jazlyn De AndaP) Psychiatric Psych Exam: Appropriate Responses (Jazlyn De Anda) Assessment/Plan Problem List: (1) CKD (chronic kidney disease) stage 4, GFR 15-29 ml/min ICD Codes: N18.4 - Chronic kidney disease, stage 4 (severe) Status: Acute Plan: Acute kidney injury with a creatinine of 4.04 , potassium 3.5, and CO2 at 19.2 on day of consult. LARS possible ATN from infection. His underlying chronic kidney disease stage 4 is likely due to diabetic nephropathy. He is followed by [employer] Dr. Garsia in [place] and was last seen in July. On admission creatinine was 3.4 which I suspect is his baseline. Patient has had recent admission in September for DKA and had dialysis X 2. He also has a AVF in right arm with good thrill and bruit. AVF has never been used and according to patient not ready for use. Renal US with echogenic kidneys consistent with underlying medical renal disease. No obstruction, bilateral small renal cysts, and tiny nonobstructing left renal stone. Plan Will monitor renal panel and urinary output UA C+S pending Renal diet Fluids encouraged Continue sodium bicarbonate No urgent need for dialysis at this point will monitor. Creatinine essentially unchanged at 4.01 with UOP 2L/24 hours MRI results noted Will be followed by Dr. Rolle in AM (2) Diabetic foot ulcer ICD Codes: E11.621 - Type 2 diabetes mellitus with foot ulcer; L97.509 - Non- pressure chronic ulcer of other part of unspecified foot with unspecified severity Status: Acute Plan: Podiatry consulted (3) DM (diabetes mellitus) ICD Codes: E11.9 - Type 2 diabetes mellitus without complications Plan: Maintain blood sugars at 140 mg/dl to 180mg/dl (4) Cellulitis of left foot ICD Codes: L03.116 - Cellulitis of left lower limb; L97.509 - Non-pressure chronic ulcer of other part of unspecified foot with unspecified severity Status: Acute Plan: continue antibiotics per ID MRI results noted Possible in need of biopsy (Jazlyn De Anda) Problem List: (1) CKD (chronic kidney disease) stage 4, GFR 15-29 ml/min ICD Codes: N18.4 - Chronic kidney disease, stage 4 (severe) Status: Acute Plan: Acute kidney injury with a creatinine of 4.04 , potassium 3.5, and CO2 at 19.2 on day of consult. LARS possible ATN from infection. His underlying chronic kidney disease stage 4 is likely due to diabetic nephropathy. He is followed by [employer] Dr. Garsia in [place] and was last seen in July. On admission creatinine was 3.4 which I suspect is his baseline. Patient has had recent admission in September for DKA and had dialysis X 2. He also has a AVF in right arm with good thrill and bruit. AVF has never been used and according to patient not ready for use. Renal US with echogenic kidneys consistent with underlying medical renal disease. No obstruction, bilateral small renal cysts, and tiny nonobstructing left renal stone. Plan Will monitor renal panel and urinary output UA C+S pending Renal diet Fluids encouraged Continue sodium bicarbonate No urgent need for dialysis at this point will monitor. Creatinine essentially unchanged at 4.01 with UOP 2L/24 hours MRI results noted Patient seen and examined, agree with above. He is followed by [employer] Dr. Garsia in [place] Creatinine is stable. (2) Diabetic foot ulcer ICD Codes: E11.621 - Type 2 diabetes mellitus with foot ulcer; L97.509 - Non- pressure chronic ulcer of other part of unspecified foot with unspecified severity Status: Acute Plan: Podiatry consulted (3) DM (diabetes mellitus) ICD Codes: E11.9 - Type 2 diabetes mellitus without complications Plan: Maintain blood sugars at 140 mg/dl to 180mg/dl (4) Cellulitis of left foot ICD Codes: L03.116 - Cellulitis of left lower limb; L97.509 - Non-pressure chronic ulcer of other part of unspecified foot with unspecified severity Status: Acute Plan: continue antibiotics per ID MRI results noted Possible in need of biopsy (Jackie Gifford MD) Jazlyn De Anda December 03, 2017 11:05 Jackie Gifford MD December 03, 2017 13:14
[2017-12-03] MEDS ORDERED: VANCOMYCIN 1,500 MG/NS 500 ML IV ONE ×2 (16:00)
[2017-12-03] MEDS: LEVOFLOXACIN/DEXTROSE 250 MG/50 ML IV SCH (18:44)
[2017-12-03] MEDS: INSULIN DETEMIR 100 UNITS/ML VIAL SQ SCH (21:09)
[2017-12-03] MEDS: PARICALCITOL 1 MCG CAP PO SCH (21:10)
[2017-12-04] VITALS (7 sets, daily range): BP systolic 131–146; BP diastolic 73–85; PULSE 79–88; RESP 18–19; TEMP 97.8–98.3; O2SAT 96–98
[2017-12-04] MEDS: INSULIN ASPART SUPPLEMENTAL SCALE SQ SCH ×6 (08:00→21:00)
[2017-12-04] MEDS: SERTRALINE HCL 100 MG TAB PO SCH (08:09)
[2017-12-04] MEDS: ACETAMINOPHEN/HYDROcodone 325 MG/5 MG TAB PO PRN ×4 (08:09→21:57)
[2017-12-04] MEDS: SODIUM BICARBONATE 325 MG TAB PO SCH (08:09)
[2017-12-04] MEDS: ASPIRIN 81 MG CHEW TAB CHEW SCH (08:09)
[2017-12-04] MEDS: SODIUM CHLORIDE 0.9% FLUSH 10 ML FLUSH IV FLUSH SCH ×2 (08:10→21:00)
[2017-12-04] MEDS: DOCUSATE SODIUM 50 MG/SENNA 8.6 MG TAB PO SCH ×2 (08:10→21:00)
[2017-12-04] MEDS: LORATADINE 10 MG TAB PO SCH (08:10)
[2017-12-04] MEDS: APIXABAN 5 MG TABLET PO SCH ×2 (08:10→21:56)
[2017-12-04] MEDS: TOPIRAMATE 25 MG TAB PO SCH ×2 (08:15→21:55)
[2017-12-04 08:22] LABS: BICARBONATE 21.3 MEQ/L (21.0-32.0); CALCIUM 8.2 MG/DL (8.5-10.1); CREATININE 3.84 MG/DL (0.60-1.30)
[2017-12-04 08:24] LABS: RANDOM VANCOMYCIN 29.6 COMMENT
--- NOTE | 2017-12-04 11:27 | HHI.PR ---
Subjective Remarks Follow-up for left foot ulceration and worsening CKD stage IV. Patient is doing well. No fever, chills. Objective Vitals Vital Signs Date Time Temp Pulse Resp B/P (MAP) Pulse Ox O2 Delivery O2 Flow Rate FiO2 12/04/17 10:13 98 12/04/17 09:50 18 12/04/17 08:00 98.2 82 18 138/83 (101) 98 12/04/17 04:54 97.9 88 18 131/80 (97) 96 12/04/17 00:00 98.3 81 18 146/85 (105) 98 12/03/17 21:23 98 12/03/17 20:00 97.6 78 18 140/82 (101) 99 12/03/17 16:14 97.9 87 18 135/78 (97) 98 12/03/17 12:00 97.9 83 18 129/75 (93) 99 I/O 12/03/17 12/03/17 12/03/17 12/04/17 12/04/17 12/04/17 07:00 15:00 23:00 07:00 15:00 23:00 Output Total 1200 ml 300 ml Balance -1200 ml -300 ml Output Urine Total 1200 ml 300 ml # Voids 6 Result Diagram: 12/02/17 0631 12/04/17 0723 Imaging Last Impressions Foot X-Ray 12/02/17 0000 Signed Impressions: Service Date/Time: Saturday, December 02, 2017 10:08 - CONCLUSION: Focal soft tissue edema overlying the plantar aspect of the calcaneus which appears progressive from prior exam. No evidence of osteomyelitis or retained foreign body. Casi Enriquez MD Foot MRI 12/02/17 0000 Signed Impressions: Service Date/Time: Saturday, December 02, 2017 15:46 - CONCLUSION: Cellulitis with soft tissue inflammatory changes large wound lateral aspect of the calcaneus and does extend to the calcaneus without evidence for osteomyelitis. Again this does touch the cortical surface of the calcaneus as well as the insertion of the plantar aponeurosis. Ulysses Peralta MD FACR Renal Ultrasound 12/01/17 0000 Signed Impressions: Service Date/Time: Friday, December 01, 2017 19:24 - CONCLUSION: 1. Echogenic kidneys consistent with underlying medical renal disease. No obstruction. 2. Bilateral small renal cysts. 3. Tiny nonobstructing left renal stone. Jacob Funes Jr., MD Objective Remarks GENERAL: Alert, oriented 3, NAD. SKIN: Warm and dry. HEAD: Normocephalic. EYES: No scleral icterus. No injection or drainage. NECK: Supple, trachea midline. No JVD or lymphadenopathy. CARDIOVASCULAR: Regular rate and rhythm without murmurs, gallops, or rubs. RESPIRATORY: Breath sounds equal bilaterally. No accessory muscle use. GASTROINTESTINAL: Abdomen soft, non-tender, nondistended. MUSCULOSKELETAL: No cyanosis, or edema. There is a full-thickness eschar on the left heel. BACK: Nontender without obvious deformity. No CVA tenderness. Procedures none A/P Problem List: (1) Cellulitis of left foot ICD Code: L03.116 - Cellulitis of left lower limb; L97.509 - Non-pressure chronic ulcer of other part of unspecified foot with unspecified severity Status: Acute (2) Hypokalemia ICD Code: E87.6 - Hypokalemia; L97.509 - Non-pressure chronic ulcer of other part of unspecified foot with unspecified severity Status: Acute (3) CKD (chronic kidney disease) stage 4, GFR 15-29 ml/min ICD Code: N18.4 - Chronic kidney disease, stage 4 (severe) Status: Acute (4) H/O deep venous thrombosis ICD Code: Z86.718 - Personal history of other venous thrombosis and embolism (5) DM (diabetes mellitus) ICD Code: E11.9 - Type 2 diabetes mellitus without complications Assessment and Plan This is a 37-year-old male with a PMH of HTN, DM, h/o DVT on Eliquis, CKD Stage IV and Left Foot Ulcer who was referred to the ER by his [employer] Supervisor for evaluation of left foot infection. On arrival, BP 111/64, HR 98, O2 sat 98% on RA, Afebrile. WBC 9.2. K+ 2.8. Creatinine 4.09, previously 3.26 on 2017. Lactic acid normal. S/p Blood Cultures, Vanc/Levaquin in ER. Left heel ulcerative wound - Appreciate ID and Podiatry. Pt was on Levaquin and Vancomycin. - With no leukocytosis, fever. No evidence of osteomyelitis. - Discussed with ID, we discontinued Vancomycin on 12/03/2017. Acute on CKD Mild hypernatremia - Creatinine 4.01 --> 3.84. - Will give one day of D5W to correct hypernatremia. - Nephrology is following. Diabetes mellitus - continue Sliding scale insulin. continue Levemir 5 units QHS. BG 113 today. Hx of DVT - currently on Apixaban 5mg BID. Full code. Apixaban. Nanda Hernandez DO December 04, 2017 11:27 am
[2017-12-04] MEDS: DEXTROSE 5% IN WATE 1000ML INJ 1,000 ML IV SCH (12:40)
--- NOTE | 2017-12-04 15:49 | HHI.NPPN ---
Subjective General Problems: Anemia, Diabetes Renal Failure: Chronic, Stage IV History of Present Illness Patient is a 37-year-old male with a past medical history of hypertension, diabetes, h/o DVT on Eliquis, chronic kidney disease Stage IV with AVF in right arm. , blindness in right eye, diabetic retinopathy, and Left Foot Ulcer. Was referred to the ER by his Microstrategy Developer for evaluation of left foot wound and infection. Nephrology was consulted for acute kidney injury with a creatinine of 4.04 today, potassium 3.5, and CO2 at 19.2. On admission creatinine was 3.4 which I suspect is his baseline. Patient has had recent admission in September for DKA and had dialysis X 2. He also has a AVF in right arm with good thrill and bruit. AVF has never been used and according to patient not ready for use. His underlying chronic kidney disease is likely due to diabetic nephropathy. He is followed by [employer] Dr. Garsia in [place] and was last seen in July. Additional Remarks Patient is resting comfortably just received pain medication (Jazlyn De Anda) Review of Systems General Constitutional: Fatigue (Jazlyn De Anda) Objective Data Data Vital Signs Date Time Temp Pulse Resp B/P (MAP) Pulse Ox O2 Delivery O2 Flow Rate FiO2 12/04/17 13:34 16 12/04/17 12:00 98.2 83 18 134/77 (96) 97 12/04/17 10:13 98 12/04/17 08:00 98.2 82 18 138/83 (101) 98 12/04/17 04:54 97.9 88 18 131/80 (97) 96 12/04/17 00:00 98.3 81 18 146/85 (105) 98 12/03/17 21:23 98 12/03/17 20:00 97.6 78 18 140/82 (101) 99 12/03/17 16:14 97.9 87 18 135/78 (97) 98 (Jazlyn De Anda) -: 12/02/17 0631 12/04/17 0723 Imaging Last Impressions Foot X-Ray 12/02/17 0000 Signed Impressions: Service Date/Time: Saturday, December 02, 2017 10:08 - CONCLUSION: Focal soft tissue edema overlying the plantar aspect of the calcaneus which appears progressive from prior exam. No evidence of osteomyelitis or retained foreign body. Casi Enriquez MD Foot MRI 12/02/17 0000 Signed Impressions: Service Date/Time: Saturday, December 02, 2017 15:46 - CONCLUSION: Cellulitis with soft tissue inflammatory changes large wound lateral aspect of the calcaneus and does extend to the calcaneus without evidence for osteomyelitis. Again this does touch the cortical surface of the calcaneus as well as the insertion of the plantar aponeurosis. Ulysses Peralta MD FACR Renal Ultrasound 12/01/17 0000 Signed Impressions: Service Date/Time: Friday, December 01, 2017 19:24 - CONCLUSION: 1. Echogenic kidneys consistent with underlying medical renal disease. No obstruction. 2. Bilateral small renal cysts. 3. Tiny nonobstructing left renal stone. Jacob Funes Jr., MD (Jazlyn De Anda) Physical Exam General Appearance: No Acute Distress, Comfortable (Jazlyn De Anda) Throat Throat Exam: Oral Mucosa [place] & Moist (Jazlyn De Anda) Pulmonary Resp Exam: Breath Sounds Equal, No Distress, Decreased Bases (Jazlyn De Anda) Cardiology CV Exam: Regular, Normal Sinus Rhythm (Jazlyn De Anda) Gastrointestinal/Abdomen GI Exam: Soft, Non-Tender, Bowel Sounds Present, Positive Bowel Movement (Jazlyn De Anda) Genitourinary Exam: Flank Non-Tender (Jazlyn De Anda) Integumentary Skin Exam: Clear, Warm Skin Remarks left heel ulcer (Jazlyn De Anda) Extremeties Extremeties Remarks edema in left leg (Jazlyn De Anda) Neurologic Neuro Exam: Alert, Awake (Jazlyn De Anda) Psychiatric Psych Exam: Appropriate Responses (Jazlyn De Anda) Assessment/Plan Problem List: (1) CKD (chronic kidney disease) stage 4, GFR 15-29 ml/min ICD Codes: N18.4 - Chronic kidney disease, stage 4 (severe) Status: Acute Plan: Acute kidney injury with a creatinine of 4.04 , potassium 3.5, and CO2 at 19.2 on day of consult. LARS possible ATN from infection. His underlying chronic kidney disease stage 4 is likely due to diabetic nephropathy. He is followed by [employer] Work[employer] Dr. Garsia in [place] and was last seen in July. On admission creatinine was 3.4 which I suspect is his baseline. Patient has had recent admission in September for DKA and had dialysis X 2. He also has a AVF in right arm with good thrill and bruit. AVF has never been used and according to patient not ready for use. Renal US with echogenic kidneys consistent with underlying medical renal disease. No obstruction, bilateral small renal cysts, and tiny nonobstructing left renal stone. Plan Will monitor renal panel and urinary output UA C+S pending will reorder Renal diet Fluids encouraged Sodium bicarbonate put on hold with hypernatremia and CO2 level normal No urgent need for dialysis at this point will monitor. Creatinine at 3.84 from 4.01 with good urinary output (2) Diabetic foot ulcer ICD Codes: E11.621 - Type 2 diabetes mellitus with foot ulcer; L97.509 - Non- pressure chronic ulcer of other part of unspecified foot with unspecified severity Status: Acute Plan: Podiatry consulted (3) DM (diabetes mellitus) ICD Codes: E11.9 - Type 2 diabetes mellitus without complications Plan: Maintain blood sugars at 140 mg/dl to 180mg/dl (4) Cellulitis of left foot ICD Codes: L03.116 - Cellulitis of left lower limb; L97.509 - Non-pressure chronic ulcer of other part of unspecified foot with unspecified severity Status: Acute Plan: continue antibiotics per ID MRI results noted Possible in need of biopsy (Jazlyn De Anda) Problem List: (1) CKD (chronic kidney disease) stage 4, GFR 15-29 ml/min ICD Codes: N18.4 - Chronic kidney disease, stage 4 (severe) Status: Acute Plan: Acute kidney injury with a creatinine of 4.04 , potassium 3.5, and CO2 at 19.2 on day of consult. LARS possible ATN from infection. His underlying chronic kidney disease stage 4 is likely due to diabetic nephropathy. He is followed by [facility] Work[employer] Dr. Garsia in [place] and was last seen in July. On admission creatinine was 3.4 which I suspect is his baseline. Patient has had recent admission in September for DKA and had dialysis X 2. He also has a AVF in right arm with good thrill and bruit. AVF has never been used and according to patient not ready for use. Renal US with echogenic kidneys consistent with underlying medical renal disease. No obstruction, bilateral small renal cysts, and tiny nonobstructing left renal stone. Plan Will monitor renal panel and urinary output UA C+S pending will reorder Renal diet Fluids encouraged Sodium bicarbonate put on hold with hypernatremia and CO2 level normal No urgent need for dialysis at this point will monitor. Creatinine at 3.84 from 4.01 with good urinary output. Patient seen and examined, agree with above. Creatinine is slightly better. (2) Diabetic foot ulcer ICD Codes: E11.621 - Type 2 diabetes mellitus with foot ulcer; L97.509 - Non- pressure chronic ulcer of other part of unspecified foot with unspecified severity Status: Acute Plan: Podiatry consulted (3) DM (diabetes mellitus) ICD Codes: E11.9 - Type 2 diabetes mellitus without complications Plan: Maintain blood sugars at 140 mg/dl to 180mg/dl (4) Cellulitis of left foot ICD Codes: L03.116 - Cellulitis of left lower limb; L97.509 - Non-pressure chronic ulcer of other part of unspecified foot with unspecified severity Status: Acute Plan: continue antibiotics per ID MRI results noted Possible in need of biopsy (Jackie Gifford MD) Jazlyn De Anda December 04, 2017 15:49 Jackie Gifford MD December 04, 2017 22:23
--- NOTE | 2017-12-04 16:33 | HHI.IDPN ---
Note Infectious Disease Note Patient is laying in bed and is in no acute distress. Denies chills. MRI of the left foot noted. Clear to me whether or not this could potentially be osteomyelitis. The sedimentation rate is greater than 140. The ulcerative wound at the left heel plantar aspect has no drainage. There is a black eschar. PAST MEDICAL AND SURGICAL HISTORY: Diabetes mellitus, diabetic neuropathy, diabetic retinopathy, hypertension, chronic kidney disease stage IV, history of DVT, history of right foot calcaneus fracture repair with screws, left eye surgery, right upper extremity AV fistula, complete blindness in the right eye and partial blindness in the left, history of MRSA neck wound in 2013. ALLERGIES: PENICILLIN, AMOXICILLIN, MUSHROOM AND BROCCOLI. MEDICATIONS: Current Medications Medications (Trade) Dose Ordered Sig/Josette Route PRN Reason Start Time Stop Time Status Last Admin Dose Admin Alprazolam (Xanax) 0.5 mg Q6H PRN PO ANXIETY 12/01/17 18:30 12/01/17 23:45 Apixaban (Eliquis) 5 mg BID PO 12/01/17 21:00 12/04/17 08:10 Aspirin (Aspirin Chew) 81 mg DAILY CHEW 12/02/17 09:00 12/04/17 08:09 Loratadine (Claritin) 10 mg DAILY PO 12/02/17 09:00 12/04/17 08:10 Sertraline HCl (Zoloft) 100 mg DAILY PO 12/02/17 09:00 12/04/17 08:09 Sodium Bicarbonate (Sodium Bicarbonate) 325 mg BIDPC PO 12/02/17 09:00 Future Hold 12/04/17 08:09 Topiramate (Topamax) 150 mg BID PO 12/01/17 21:00 12/04/17 08:15 Tramadol HCl (Ultram) 50 mg Q6H PRN PO PAIN SCALE 1 TO 10 12/01/17 18:30 12/02/17 06:46 Cholecalciferol (Vitamin D3) 50,000 units Q7D PO 12/08/17 09:00 Ondansetron HCl (Zofran Odt) 4 mg Q6H PRN PO NAUSEA OR VOMITING 12/01/17 20:00 Paricalcitol (Zemplar) 4 mcg HS PO 12/01/17 21:00 12/03/17 21:10 Sodium Chloride (NS Flush) 2 ml UNSCH PRN IV FLUSH FLUSH AFTER USING IV ACCESS 12/01/17 18:30 12/01/17 23:44 Sodium Chloride (NS Flush) 2 ml BID IV FLUSH 12/01/17 21:00 12/04/17 08:10 Acetaminophen (Tylenol) 650 mg Q4H PRN PO TEMP > 100.4 12/01/17 18:30 Naloxone HCl (Narcan Inj) 0.4 mg UNSCH PRN IV PUSH SEE LABEL COMMENTS 12/01/17 18:30 Senna/Docusate Sodium (Margarita-Colace) 1 tab BID PO 12/01/17 21:00 12/01/17 23:44 Sennosides (Senokot) 17.2 mg Q12H PRN PO Moderate constipation 12/01/17 18:30 Bisacodyl (Dulcolax Supp) 10 mg DAILY PRN RECTAL SEVERE CONSITIPATION 12/01/17 18:30 Lactulose (Lactulose Liq) 30 ml DAILY PRN PO SEVERE CONSITIPATION 12/01/17 18:30 Dextrose (D50w (Vial) Inj) 50 ml UNSCH PRN IV PUSH HYPOGLYCEMIA-SEE COMMENTS 12/01/17 18:30 Glucagon (Glucagon Inj) 1 mg UNSCH PRN OTHER HYPOGLYCEMIA-SEE COMMENTS 12/01/17 18:30 Insulin Aspart (NovoLOG SUPPLEMENTAL SCALE) 1 ACHS SLIDING SCALE SQ 12/01/17 21:00 Levofloxacin/ Dextrose 50 ml @ 50 mls/hr Q24H IV 12/02/17 18:00 12/03/17 18:44 Acetaminophen/ Hydrocodone Bitart ([place] 5-325 Mg) 1 tab Q4H PRN PO Breakthrough pain 12/02/17 12:45 12/04/17 12:34 Insulin Detemir (Levemir Inj) 5 units HS SQ 12/03/17 21:00 12/03/17 21:09 Dextrose 1,000 ml @ 84 mls/hr [id number] IV 12/04/17 11:30 12/05/17 11:29 12/04/17 12:40 Objective: Vital Signs Date Time Temp Pulse Resp B/P (MAP) Pulse Ox O2 Delivery O2 Flow Rate FiO2 12/04/17 13:34 16 12/04/17 12:00 98.2 83 18 134/77 (96) 97 12/04/17 10:13 98 12/04/17 08:00 98.2 82 18 138/83 (101) 98 12/04/17 04:54 97.9 88 18 131/80 (97) 96 12/04/17 00:00 98.3 81 18 146/85 (105) 98 12/03/17 21:23 98 12/03/17 20:00 97.6 78 18 140/82 (101) 99 Laboratory Tests Test 12/03/17 06:25 12/04/17 07:23 Blood Urea Nitrogen 26 MG/DL 26 MG/DL Creatinine 4.01 MG/DL 3.84 MG/DL Random Glucose 78 MG/DL 109 MG/DL Albumin 1.7 GM/DL Calcium Level 8.1 MG/DL 8.2 MG/DL Phosphorus Level 4.2 MG/DL Sodium Level 146 MEQ/L 147 MEQ/L Potassium Level 3.5 MEQ/L 3.9 MEQ/L Chloride Level 116 MEQ/L 117 MEQ/L Carbon Dioxide Level 20.6 MEQ/L 21.3 MEQ/L Anion Gap 9 MEQ/L 9 MEQ/L Estimat Glomerular Filtration Rate 17 ML/MIN 18 ML/MIN PHYSICAL EXAMINATION: GENERAL: Patient is awake and alert. No acute distress. HEENT: Extraocular movements are grossly intact. Pupils reactive to light. No icterus. Oropharynx: Moist mucosa without lesions. NECK: Supple without adenopathy. LUNGS: Clear to auscultation. CARDIOVASCULAR: Regular S1 and S2, without murmurs, rubs or gallops. ABDOMEN: Bowel sounds present. Soft, nontender. EXTREMITIES: The left leg has 1+ edema at the foot, ankle and tibia. There is an ulceration with necrotic eschar overlying the ulcerated area At the plantar aspect of the left heel which is dry. There is some dried blood on his sock. No erythema. SKIN: No rash. NEUROLOGIC: No gross focal finding. PSYCHIATRIC: Calm and cooperative. IMPRESSION: Ulceration of the left foot. Patient with history of diabetes mellitus. Plain films of the foot did not show evidence of osteomyelitis, but soft tissue edema. MRI does not show any definitive evidence of osteomyelitis. There is absolutely no erythema surrounding the left heel eschar. Since the patient does appear to have evidence of osteomyelitis I would not give him prolonged antibiotics for this also. I would prefer to have culture data in order to treat this patient Without the bone being involved I think he should be treated with wound care if there is drainage send a culture of the drainage to guide antibiotics. He already has stage IV kidney disease and it would not be worth the risk of treating empirically without evidence of infection in the deeper tissues. There is no clear evidence of cellulitis at the left heel. I will attempt to contact the radiologist to review the MRI RECOMMENDATIONS: Await review of the MRI and if osteomyelitis is not to be present I recommend the patient followed by wound care team without antibiotics. If there is drainage in the future, the wound culture should be taken to guide antibiotic choice. Since he has no drainage currently the only way of getting such culture would be to do a tissue biopsy. However if there is no infection would risk him developing infection if there is an open wound. Nader Gama MD December 04, 2017 16:33
[2017-12-04] MEDS: LEVOFLOXACIN/DEXTROSE 250 MG/50 ML IV SCH (16:54)
[2017-12-04] MEDS: INSULIN DETEMIR 100 UNITS/ML VIAL SQ SCH (21:00)
[2017-12-04] MEDS: PARICALCITOL 1 MCG CAP PO SCH (21:53)
[2017-12-05] VITALS: BP 148/90; PULSE 81; RESP 19; TEMP 98.4; O2SAT 98
[2017-12-05] MEDS: DEXTROSE 5% IN WATE 1000ML INJ 1,000 ML IV SCH ×2 (00:02→12:08)
[2017-12-05 06:34] VITALS: BP 160/94; PULSE 77; RESP 18; TEMP 98.4; O2SAT 98
[2017-12-05 08:00] VITALS: BP 137/91; PULSE 78; RESP 18; TEMP 98; O2SAT 98
[2017-12-05] MEDS: DOCUSATE SODIUM 50 MG/SENNA 8.6 MG TAB PO SCH ×2 (08:00→21:00)
[2017-12-05] MEDS: APIXABAN 5 MG TABLET PO SCH ×2 (08:00→21:23)
[2017-12-05] MEDS: SERTRALINE HCL 100 MG TAB PO SCH (08:00)
[2017-12-05] MEDS: INSULIN ASPART SUPPLEMENTAL SCALE SQ SCH ×4 (08:00→21:00)
[2017-12-05] MEDS: LORATADINE 10 MG TAB PO SCH (08:00)
[2017-12-05] MEDS: TOPIRAMATE 25 MG TAB PO SCH ×2 (08:34→21:22)
[2017-12-05] MEDS: ACETAMINOPHEN/HYDROcodone 325 MG/5 MG TAB PO PRN ×2 (08:35→09:42)
[2017-12-05] MEDS: ASPIRIN 81 MG CHEW TAB CHEW SCH (08:36)
[2017-12-05] MEDS: SODIUM CHLORIDE 0.9% FLUSH 10 ML FLUSH IV FLUSH SCH ×2 (09:00→21:24)
--- NOTE | 2017-12-05 09:51 | HHI.NPPN ---
Subjective General Problems: Anemia, Diabetes Renal Failure: Chronic, Stage IV History of Present Illness Patient is a 37-year-old male with a past medical history of hypertension, diabetes, h/o DVT on Eliquis, chronic kidney disease Stage IV with AVF in right arm. , blindness in right eye, diabetic retinopathy, and Left Foot Ulcer. Was referred to the ER by his Warehouse Person for evaluation of left foot wound and infection. Nephrology was consulted for acute kidney injury with a creatinine of 4.04 today, potassium 3.5, and CO2 at 19.2. On admission creatinine was 3.4 which I suspect is his baseline. Patient has had recent admission in September for DKA and had dialysis X 2. He also has a AVF in right arm with good thrill and bruit. AVF has never been used and according to patient not ready for use. His underlying chronic kidney disease is likely due to diabetic nephropathy. He is followed by [employer] Dr. Garsia in [place] and was last seen in July. Additional Remarks Patient sitting up on side of bed. Continues to complain of increased pain in left foot. (Jazlyn De Anda) Review of Systems General Constitutional: Fatigue (Jazlyn De Anda) Musculoskeletal MS: Pain/Stiffness MS Remarks left foot (Jazlyn De Anda) Objective Data Data Vital Signs Date Time Temp Pulse Resp B/P (MAP) Pulse Ox O2 Delivery O2 Flow Rate FiO2 12/05/17 08:00 98.0 78 18 137/91 (106) 98 12/05/17 06:34 98.4 77 18 160/94 (116) 98 12/05/17 00:00 98.4 81 19 148/90 (109) 98 12/04/17 20:00 97.8 80 19 136/80 (98) 98 12/04/17 17:59 18 12/04/17 16:00 98.2 79 18 131/73 (92) 97 12/04/17 12:00 98.2 83 18 134/77 (96) 97 12/04/17 10:13 98 (Jazlyn De Anda) -: 12/02/17 0631 12/04/17 0723 Imaging Last Impressions Foot X-Ray 12/02/17 0000 Signed Impressions: Service Date/Time: Saturday, December 02, 2017 10:08 - CONCLUSION: Focal soft tissue edema overlying the plantar aspect of the calcaneus which appears progressive from prior exam. No evidence of osteomyelitis or retained foreign body. Casi Enriquez MD Foot MRI 12/02/17 0000 Signed Impressions: Service Date/Time: Saturday, December 02, 2017 15:46 - CONCLUSION: Cellulitis with soft tissue inflammatory changes large wound lateral aspect of the calcaneus and does extend to the calcaneus without evidence for osteomyelitis. Again this does touch the cortical surface of the calcaneus as well as the insertion of the plantar aponeurosis. Ulysses Peralta MD FACR Renal Ultrasound 12/01/17 0000 Signed Impressions: Service Date/Time: Friday, December 01, 2017 19:24 - CONCLUSION: 1. Echogenic kidneys consistent with underlying medical renal disease. No obstruction. 2. Bilateral small renal cysts. 3. Tiny nonobstructing left renal stone. Jacob Funes Jr., MD (Jazlyn De Anda) Physical Exam General Appearance: No Acute Distress, Comfortable (Jazlyn De Anda) Throat Throat Exam: Oral Mucosa [place] & Moist (Jazlyn De Anda) Pulmonary Resp Exam: Breath Sounds Equal, No Distress, Decreased Bases (Jazlyn De Anda) Cardiology CV Exam: Regular, Normal Sinus Rhythm (Jazlyn De Anda) Gastrointestinal/Abdomen GI Exam: Soft, Non-Tender, Bowel Sounds Present, Positive Bowel Movement (Jazlyn De Anda) Genitourinary Exam: Flank Non-Tender (Jazlyn De Anda) Integumentary Skin Exam: Clear, Warm Skin Remarks left heel ulcer (Jazlyn De Anda) Extremeties Extremeties Remarks edema in left leg (Jazlyn De Anda) Neurologic Neuro Exam: Alert, Awake (Jazlyn De Anda) Psychiatric Psych Exam: Appropriate Responses (Jazlyn De Anda) Assessment/Plan Problem List: (1) CKD (chronic kidney disease) stage 4, GFR 15-29 ml/min ICD Codes: N18.4 - Chronic kidney disease, stage 4 (severe) Status: Acute Plan: Acute kidney injury with a creatinine of 4.04 , potassium 3.5, and CO2 at 19.2 on day of consult. LARS possible ATN from infection. His underlying chronic kidney disease stage 4 is likely due to diabetic nephropathy. He is followed by [employer] Dr. Garsia in [place] and was last seen in July. On admission creatinine was 3.4 which I suspect is his baseline. Patient has had recent admission in September for DKA and had dialysis X 2. He also has a AVF in right arm with good thrill and bruit. AVF has never been used and according to patient not ready for use. Renal US with echogenic kidneys consistent with underlying medical renal disease. No obstruction, bilateral small renal cysts, and tiny nonobstructing left renal stone. Plan Will monitor renal panel and urinary output UA C+S pending Renal diet Fluids encouraged Sodium bicarbonate put on hold with hypernatremia and CO2 level normal No urgent need for dialysis at this point will monitor. Creatinine at 3.84 from 4.01 with good urinary output. Per nephrology standpoint if creatinine continues to improve he can be discharged home. He has a follow up appt this month with Dr. Garsia. Sign of uremia reviewed with patient and instructed to go to ER if symptoms present. (2) Diabetic foot ulcer ICD Codes: E11.621 - Type 2 diabetes mellitus with foot ulcer; L97.509 - Non- pressure chronic ulcer of other part of unspecified foot with unspecified severity Status: Acute Plan: Podiatry consulted (3) DM (diabetes mellitus) ICD Codes: E11.9 - Type 2 diabetes mellitus without complications Plan: Maintain blood sugars at 140 mg/dl to 180mg/dl (4) Cellulitis of left foot ICD Codes: L03.116 - Cellulitis of left lower limb; L97.509 - Non-pressure chronic ulcer of other part of unspecified foot with unspecified severity Status: Acute Plan: continue antibiotics per ID MRI results noted Possible in need of biopsy (Jazlyn De Anda) Problem List: (1) CKD (chronic kidney disease) stage 4, GFR 15-29 ml/min ICD Codes: N18.4 - Chronic kidney disease, stage 4 (severe) Status: Acute Plan: Acute kidney injury with a creatinine of 4.04 , potassium 3.5, and CO2 at 19.2 on day of consult. LARS possible ATN from infection. His underlying chronic kidney disease stage 4 is likely due to diabetic nephropathy. He is followed by [employer] Dr. Garsia in [place] and was last seen in July. On admission creatinine was 3.4 which I suspect is his baseline. Patient has had recent admission in September for DKA and had dialysis X 2. He also has a AVF in right arm with good thrill and bruit. AVF has never been used and according to patient not ready for use. Renal US with echogenic kidneys consistent with underlying medical renal disease. No obstruction, bilateral small renal cysts, and tiny nonobstructing left renal stone. Plan Will monitor renal panel and urinary output UA C+S pending Renal diet Fluids encouraged Sodium bicarbonate put on hold with hypernatremia and CO2 level normal No urgent need for dialysis at this point will monitor. Creatinine at 3.84 from 4.01 with good urinary output. Per nephrology standpoint if creatinine continues to improve he can be discharged home. He has a follow up appt this month with Dr. Garsia. Sign of uremia reviewed with patient and instructed to go to ER if symptoms present. Patient seen and examined, agree with above. Creatinine is better, avoid Nephrotoxins, and follow the BMP. (2) Diabetic foot ulcer ICD Codes: E11.621 - Type 2 diabetes mellitus with foot ulcer; L97.509 - Non- pressure chronic ulcer of other part of unspecified foot with unspecified severity Status: Acute Plan: Podiatry consulted (3) DM (diabetes mellitus) ICD Codes: E11.9 - Type 2 diabetes mellitus without complications Plan: Maintain blood sugars at 140 mg/dl to 180mg/dl (4) Cellulitis of left foot ICD Codes: L03.116 - Cellulitis of left lower limb; L97.509 - Non-pressure chronic ulcer of other part of unspecified foot with unspecified severity Status: Acute Plan: continue antibiotics per ID MRI results noted Possible in need of biopsy (Jackie Gifford MD) Jazlyn De Anda December 05, 2017 09:51 Jackie Gifford MD December 05, 2017 21:14
[2017-12-05 11:41] LABS: BICARBONATE 19.1 MEQ/L (21.0-32.0); CALCIUM 8.1 MG/DL (8.5-10.1); CREATININE 3.69 MG/DL (0.60-1.30)
[2017-12-05 12:00] VITALS: BP 105/66; PULSE 85; RESP 18; TEMP 97.8; O2SAT 97
--- NOTE | 2017-12-05 14:39 | HHI.IDPN ---
Note Infectious Disease Note Patient is in no acute distress. He notes pain in the left heel. Denies chills. No fever. The ulcerative wound at the left heel plantar aspect has no drainage. There is a necrotic eschar. PAST MEDICAL AND SURGICAL HISTORY: Diabetes mellitus, diabetic neuropathy, diabetic retinopathy, hypertension, chronic kidney disease stage IV, history of DVT, history of right foot calcaneus fracture repair with screws, left eye surgery, right upper extremity AV fistula, complete blindness in the right eye and partial blindness in the left, history of MRSA neck wound in 2013. ALLERGIES: PENICILLIN, AMOXICILLIN, MUSHROOM AND BROCCOLI. MEDICATIONS: Current Medications Medications (Trade) Dose Ordered Sig/Josette Route PRN Reason Start Time Stop Time Status Last Admin Dose Admin Alprazolam (Xanax) 0.5 mg Q6H PRN PO ANXIETY 12/01/17 18:30 12/01/17 23:45 Apixaban (Eliquis) 5 mg BID PO 12/01/17 21:00 12/05/17 08:00 Aspirin (Aspirin Chew) 81 mg DAILY CHEW 12/02/17 09:00 12/05/17 08:36 Loratadine (Claritin) 10 mg DAILY PO 12/02/17 09:00 12/05/17 08:00 Sertraline HCl (Zoloft) 100 mg DAILY PO 12/02/17 09:00 12/05/17 08:00 Sodium Bicarbonate (Sodium Bicarbonate) 325 mg BIDPC PO 12/02/17 09:00 Future Hold 12/04/17 08:09 Topiramate (Topamax) 150 mg BID PO 12/01/17 21:00 12/05/17 08:34 Tramadol HCl (Ultram) 50 mg Q6H PRN PO PAIN SCALE 1 TO 10 12/01/17 18:30 12/02/17 06:46 Cholecalciferol (Vitamin D3) 50,000 units Q7D PO 12/08/17 09:00 Ondansetron HCl (Zofran Odt) 4 mg Q6H PRN PO NAUSEA OR VOMITING 12/01/17 20:00 Paricalcitol (Zemplar) 4 mcg HS PO 12/01/17 21:00 12/04/17 21:53 Sodium Chloride (NS Flush) 2 ml UNSCH PRN IV FLUSH FLUSH AFTER USING IV ACCESS 12/01/17 18:30 12/01/17 23:44 Sodium Chloride (NS Flush) 2 ml BID IV FLUSH 12/01/17 21:00 12/04/17 08:10 Acetaminophen (Tylenol) 650 mg Q4H PRN PO TEMP > 100.4 12/01/17 18:30 Naloxone HCl (Narcan Inj) 0.4 mg UNSCH PRN IV PUSH SEE LABEL COMMENTS 12/01/17 18:30 Senna/Docusate Sodium (Margarita-Colace) 1 tab BID PO 12/01/17 21:00 12/05/17 08:00 Sennosides (Senokot) 17.2 mg Q12H PRN PO Moderate constipation 12/01/17 18:30 Bisacodyl (Dulcolax Supp) 10 mg DAILY PRN RECTAL SEVERE CONSITIPATION 12/01/17 18:30 Lactulose (Lactulose Liq) 30 ml DAILY PRN PO SEVERE CONSITIPATION 12/01/17 18:30 Dextrose (D50w (Vial) Inj) 50 ml UNSCH PRN IV PUSH HYPOGLYCEMIA-SEE COMMENTS 12/01/17 18:30 Glucagon (Glucagon Inj) 1 mg UNSCH PRN OTHER HYPOGLYCEMIA-SEE COMMENTS 12/01/17 18:30 Insulin Aspart (NovoLOG SUPPLEMENTAL SCALE) 1 ACHS SLIDING SCALE SQ 12/01/17 21:00 Levofloxacin/ Dextrose 50 ml @ 50 mls/hr Q24H IV 12/02/17 18:00 12/04/17 16:54 Acetaminophen/ Hydrocodone Bitart ([place] 5-325 Mg) 1 tab Q4H PRN PO Breakthrough pain 12/02/17 12:45 12/05/17 08:35 Insulin Detemir (Levemir Inj) 5 units HS SQ 12/03/17 21:00 12/03/17 21:09 Objective: Vital Signs Date Time Temp Pulse Resp B/P (MAP) Pulse Ox O2 Delivery O2 Flow Rate FiO2 12/05/17 12:00 97.8 85 18 105/66 (79) 97 12/05/17 08:00 98.0 78 18 137/91 (106) 98 12/05/17 06:34 98.4 77 18 160/94 (116) 98 12/05/17 00:00 98.4 81 19 148/90 (109) 98 12/04/17 20:00 97.8 80 19 136/80 (98) 98 12/04/17 17:59 18 12/04/17 16:00 98.2 79 18 131/73 (92) 97 Laboratory Tests Test 12/04/17 07:23 12/05/17 10:55 Blood Urea Nitrogen 26 MG/DL 32 MG/DL Creatinine 3.84 MG/DL 3.69 MG/DL Random Glucose 109 MG/DL 320 MG/DL Calcium Level 8.2 MG/DL 8.1 MG/DL Sodium Level 147 MEQ/L 139 MEQ/L Potassium Level 3.9 MEQ/L 4.1 MEQ/L Chloride Level 117 MEQ/L 109 MEQ/L Carbon Dioxide Level 21.3 MEQ/L 19.1 MEQ/L Anion Gap 9 MEQ/L 11 MEQ/L Estimat Glomerular Filtration Rate 18 ML/MIN 19 ML/MIN Imaging: Foot X-Ray 12/02/17 0000 Signed Impressions: Service Date/Time: Saturday, December 02, 2017 10:08 - CONCLUSION: Focal soft tissue edema overlying the plantar aspect of the calcaneus which appears progressive from prior exam. No evidence of osteomyelitis or retained foreign body. Casi Enriquez MD Foot MRI 12/02/17 0000 Signed Impressions: Service Date/Time: Saturday, December 02, 2017 15:46 - CONCLUSION: Cellulitis with soft tissue inflammatory changes large wound lateral aspect of the calcaneus and does extend to the calcaneus without evidence for osteomyelitis. Again this does touch the cortical surface of the calcaneus as well as the insertion of the plantar aponeurosis. Ulysses Peralta MD FACR Renal Ultrasound 12/01/17 0000 Signed Impressions: Service Date/Time: Friday, December 01, 2017 19:24 - CONCLUSION: 1. Echogenic kidneys consistent with underlying medical renal disease. No obstruction. 2. Bilateral small renal cysts. 3. Tiny nonobstructing left renal stone. Jacob Funes Jr., MD PHYSICAL EXAMINATION: GENERAL: Patient is awake and alert. No acute distress. HEENT: Extraocular movements are grossly intact. Pupils reactive to light. No icterus. Oropharynx: Moist mucosa without lesions. NECK: Supple without adenopathy. LUNGS: Clear to auscultation. CARDIOVASCULAR: Regular S1 and S2, without murmurs, rubs or gallops. ABDOMEN: Bowel sounds present. Soft, nontender. EXTREMITIES: The left leg has 1+ edema at the foot, ankle and distal tibia. Necrotic dry ulceration at the left heel is the same. No drainage. No erythema. SKIN: No rash. NEUROLOGIC: No gross focal finding. PSYCHIATRIC: Calm and cooperative. IMPRESSION: 1. Ulceration of the left foot. Patient with history of diabetes mellitus. Plain films of the foot did not show evidence of osteomyelitis, but soft tissue edema. MRI does not show any definitive evidence of osteomyelitis. There is absolutely no erythema surrounding the left heel eschar. 2. Chronic kidney disease stage IV. The ulcer is probably ischemic in nature. I would prefer to have culture data in order to treat this patient There is no drainage to culture. Because he likely does not have infection. I had the radiologist review the MRI study again today. He does not have evidence of osteomyelitis on the MRI. RECOMMENDATIONS: Consult vascular surgery to see if he has any vascular disease that need Intervention. Stop the antibiotic since there is no evidence of infection. Have the patient offload pressure on the on the heel. Nader Gama MD December 05, 2017 14:39
[2017-12-05 16:00] VITALS: BP 158/88; PULSE 81; RESP 18; TEMP 97.5; O2SAT 97
[2017-12-05] MEDS ORDERED: INSULIN ASPART 1,000 UNITS/10 ML VIAL SQ ONE (17:30)
[2017-12-05 18:43] LABS: BILIRUBIN, URINE NEG (NEG); BLOOD, URINE NEG (NEG); GLUCOSE,URINE 1000 mg/dL (NEG); KETONE, URINE NEG (NEG); NITRITE,URINE NEG (NEG); SQUAMOUS EPITHELIAL CELL URINE <1 /hpf (0-5); URINE COLOR COLORLESS (YELLW/STRAW); URINE LEUKOCYTE ESTERASE NEG (NEG)
[2017-12-05 20:00] VITALS: BP 108/64; PULSE 79; RESP 18; TEMP 97.4; O2SAT 98
[2017-12-05] MEDS: INSULIN DETEMIR 100 UNITS/ML VIAL SQ SCH (21:00)
[2017-12-05] MEDS: PARICALCITOL 1 MCG CAP PO SCH (21:22)
[2017-12-05] MEDS: traMADol HCL 50 MG TAB PO PRN (21:23)
[2017-12-06] VITALS: BP 168/88; PULSE 78; RESP 18; TEMP 97.5; O2SAT 92
[2017-12-06 04:00] VITALS: BP 123/73; PULSE 79; RESP 18; TEMP 98.4; O2SAT 98
[2017-12-06] MEDS: ACETAMINOPHEN/HYDROcodone 325 MG/5 MG TAB PO PRN (06:11)
[2017-12-06 07:43] VITALS: BP 133/82; PULSE 81; RESP 19; TEMP 98.3; O2SAT 97
--- NOTE | 2017-12-06 07:50 | PD.VS.CON ---
History of Present Illness Chief Complaint: left foot ulcer, DM Consult Requested by: medical service History of Present Illness 37 yo male with DM and CRI not on HD who presents with L foot ulcer. Been to ED several times and diagnosed with sprain but then developed ulcer according to him. Past/Family/Social History Past Medical History DM HTN DVT CRI Past Surgical History foot surgery AVF Social History NC Family History NC Home Medications Active Scripts Ondansetron (Zofran) 4 Mg Tab, 4 MG PO Q6HR Y for NAUSEA OR VOMITING, #20 TAB 0 Refills Prov:Suma Melgar DO 11/01/17 Reported Medications Alprazolam (Xanax) 0.5 Mg Tab, 0.5 MG PO Q6H Y for ANXIETY, TAB 0 Refills 11/27/17 Tramadol (Tramadol) 50 Mg Tab, 50 MG PO Q6H Y for PAIN, TAB 0 Refills 11/27/17 Apixaban (Eliquis) 5 Mg Tab, 5 MG PO BID for Blood Clot Prevention, #60 TAB 0 Refills 11/27/17 Loratadine (Allergy Relief) 10 Mg Tab, 10 MG PO DAILY, TAB 11/27/17 Topiramate (Topamax) 50 Mg Tab, 150 MG PO BID for Control Seizures, #60 TAB 0 Refills 11/27/17 Insulin Lispro (Human) Inj (Humalog Inj) 1,000 Unit/10 Ml Vial, SQ CONTINUOUS for Blood Sugar Management, #1 VIAL 0 Refills Max dose at bedtime:( )units; sugars< 70,(0)units; sugars 150-199,(1)unit; sugars 200-249,(3)units; sugars 250-299,(5)units; sugars 300-349,(7)units; sugars more than 349,(9)units. 08/13/17 [Insulin Pump] No Conflict Check 05/18/17 Aspirin (Aspirin 81 Low Dose) 81 Mg Chew, 81 MG CHEW DAILY, #30 TAB 05/18/17 Sodium Bicarbonate (Sodium Bicarbonate) 325 Mg Tab, 325 MG PO BIDPC, #60 TAB 0 Refills 05/18/17 Sertraline (Sertraline) 100 Mg Tab, 100 MG PO DAILY, #30 TAB 0 Refills 01/31/17 Cholecalciferol (Vitamin D3) 50,000 Unit Cap, 89097 UNITS PO Q7D for Nutritional Supplement, #1 BOTTLE 0 Refills 01/31/17 Paricalcitol (Paricalcitol) 4 Mcg Cap, 4 MCG PO HS for Secondary hyperparathyroidism, #30 CAP 0 Refills 01/31/17 Coded Allergies: amoxicillin (Verified Allergy, Severe, Rash, 12/01/17) broccoli (Verified Allergy, Severe, ANAPHYLAXIS, 12/01/17) mushroom (Verified Allergy, Severe, ANAPHYLAXIS, 12/01/17) penicillin G (Verified Allergy, Severe, Hives, 12/01/17) *MDRO Multi-Drug Resistant Organism (Verified Adverse Reaction, Unknown, ) MRSA 06/2014 and 11/2009. MRSA PCR Screen positive 05/21/15. Review of Systems Constitutional: DENIES: Fever, Chills, Night Sweats Physical Exam Vitals/I&O Date Time Temp Pulse Resp B/P (MAP) Pulse Ox O2 Delivery O2 Flow Rate FiO2 12/06/17 07:43 98.3 81 19 133/82 (99) 97 12/06/17 04:00 98.4 79 18 123/73 (90) 98 12/06/17 00:00 97.5 78 18 168/88 (114) 92 12/05/17 20:00 97.4 79 18 108/64 (79) 98 12/05/17 16:00 97.5 81 18 158/88 (111) 97 12/05/17 12:00 97.8 85 18 105/66 (79) 97 12/05/17 08:00 98.0 78 18 137/91 (106) 98 Neuro: alert, oriented HEENT: NC/AT Neck: no JVD Heart: reg rate Lungs: unlabored Vascular: palpable PT and DP Extremities: foot edematous but no erythema superficial appearing skin erosion on heel Laboratory Tests Test 12/05/17 10:55 12/05/17 17:50 12/05/17 18:36 Blood Urea Nitrogen 32 Creatinine 3.69 Random Glucose 320 512 Calcium Level 8.1 Sodium Level 139 Potassium Level 4.1 Chloride Level 109 Carbon Dioxide Level 19.1 Anion Gap 11 Estimat Glomerular Filtration Rate 19 Urine Color COLORLESS Urine Turbidity CLEAR Urine pH 7.0 Urine Specific [place] 1.008 Urine Protein 100 Urine Glucose (UA) 1000 Urine Ketones NEG Urine Occult Blood NEG Urine Nitrite NEG Urine Bilirubin NEG Urine Urobilinogen LESS THAN 2.0 Urine Leukocyte Esterase NEG Urine Squamous Epithelial Cells <1 Microscopic Urinalysis Comment CULT NOT INDICATED Date/Time Source Procedure Growth Status 12/01/17 16:05 Blood Peripheral Aerobic Blood Culture - Preliminary NO GROWTH IN 4 DAYS Resulted 12/01/17 16:05 Blood Peripheral Anaerobic Blood Culture - Preliminary NO GROWTH IN 4 DAYS Resulted Assessment and Plan Plan L heel ulcer, not related to PAD as he has palpable pulses agree with podiatry recs can f/u prn David Cuba MD FACS RPV[employer] ebd teacher [facility] V[facility] [phone] David Cuba MD December 06, 2017 07:50
[2017-12-06] MEDS: INSULIN ASPART SUPPLEMENTAL SCALE SQ SCH ×2 (08:00→12:00)
[2017-12-06] MEDS: DOCUSATE SODIUM 50 MG/SENNA 8.6 MG TAB PO SCH (08:12)
[2017-12-06] MEDS: TOPIRAMATE 25 MG TAB PO SCH (08:12)
[2017-12-06] MEDS: LORATADINE 10 MG TAB PO SCH (08:12)
[2017-12-06] MEDS: SERTRALINE HCL 100 MG TAB PO SCH (08:13)
[2017-12-06] MEDS: APIXABAN 5 MG TABLET PO SCH (08:13)
[2017-12-06] MEDS: ASPIRIN 81 MG CHEW TAB CHEW SCH (08:13)
[2017-12-06] MEDS: SODIUM CHLORIDE 0.9% FLUSH 10 ML FLUSH IV FLUSH SCH (09:20)
--- NOTE | 2017-12-06 10:24 | HHI.NPPN ---
Subjective General Problems: Anemia, Diabetes Renal Failure: Chronic, Stage IV History of Present Illness Patient is a 37-year-old male with a past medical history of hypertension, diabetes, h/o DVT on Eliquis, chronic kidney disease Stage IV with AVF in right arm. , blindness in right eye, diabetic retinopathy, and Left Foot Ulcer. Was referred to the ER by his [employer] for evaluation of left foot wound and infection. Nephrology was consulted for acute kidney injury with a creatinine of 4.04 today, potassium 3.5, and CO2 at 19.2. On admission creatinine was 3.4 which I suspect is his baseline. Patient has had recent admission in September for DKA and had dialysis X 2. He also has a AVF in right arm with good thrill and bruit. AVF has never been used and according to patient not ready for use. His underlying chronic kidney disease is likely due to diabetic nephropathy. He is followed by [employer] Out Wait[employer] Dr. Garsia in [place] and was last seen in July. Additional Remarks Resting comfortable. Seen by vascular surgery today. No intervention recommended. (Jazlyn De Anda) Review of Systems General Constitutional: Fatigue (Jazlyn De Anda) Musculoskeletal MS: Pain/Stiffness MS Remarks left foot (Jazlyn De Anda) Objective Data Data Vital Signs Date Time Temp Pulse Resp B/P (MAP) Pulse Ox O2 Delivery O2 Flow Rate FiO2 12/06/17 07:43 98.3 81 19 133/82 (99) 97 12/06/17 04:00 98.4 79 18 123/73 (90) 98 12/06/17 00:00 97.5 78 18 168/88 (114) 92 12/05/17 20:00 97.4 79 18 108/64 (79) 98 12/05/17 16:00 97.5 81 18 158/88 (111) 97 12/05/17 12:00 97.8 85 18 105/66 (79) 97 (Jazlyn De Anda) -: 12/02/17 0631 12/05/17 1836 Physical Exam General Appearance: No Acute Distress, Comfortable (Jazlyn De Anda) Throat Throat Exam: Oral Mucosa [place] & Moist (Jazlyn De Anda) Pulmonary Resp Exam: Breath Sounds Equal, No Distress, Decreased Bases (Jazlyn De Anda) Cardiology CV Exam: Regular, Normal Sinus Rhythm (Jazlyn De Anda) Gastrointestinal/Abdomen GI Exam: Soft, Non-Tender, Bowel Sounds Present, Positive Bowel Movement (Jazlyn De Anda) Genitourinary Exam: Flank Non-Tender (Jazlyn De Anda) Integumentary Skin Exam: Clear, Warm Skin Remarks left heel ulcer (Jazlyn De Anda) Extremeties Extremeties Remarks edema in left leg (Jazlyn De Anda) Neurologic Neuro Exam: Alert, Awake (Jazlyn De Anda) Psychiatric Psych Exam: Appropriate Responses (Jazlyn De Anda) Assessment/Plan Problem List: (1) CKD (chronic kidney disease) stage 4, GFR 15-29 ml/min ICD Codes: N18.4 - Chronic kidney disease, stage 4 (severe) Status: Acute Plan: Acute kidney injury with a creatinine of 4.04 , potassium 3.5, and CO2 at 19.2 on day of consult. LARS possible ATN from infection. His underlying chronic kidney disease stage 4 is likely due to diabetic nephropathy. He is followed by [employer] Dr. Garsia in [place] and was last seen in July. On admission creatinine was 3.4 which I suspect is his baseline. Patient has had recent admission in September for DKA and had dialysis X 2. He also has a AVF in right arm with good thrill and bruit. AVF has never been used and according to patient not ready for use. Renal US with echogenic kidneys consistent with underlying medical renal disease. No obstruction, bilateral small renal cysts, and tiny nonobstructing left renal stone. Plan Will monitor renal panel and urinary output UA C+S pending Renal diet Fluids encouraged Sodium bicarbonate put on hold with hypernatremia and CO2 level normal No urgent need for dialysis at this point will monitor. Per nephrology standpoint if creatinine continues to improve he can be discharged home. He has a follow up appt this month with Dr. Garsia. Signs of uremia reviewed with patient and instructed to go to ER if symptoms present. Seen by vascular no intervention recommended. If not discharged labs in AM (2) Diabetic foot ulcer ICD Codes: E11.621 - Type 2 diabetes mellitus with foot ulcer; L97.509 - Non- pressure chronic ulcer of other part of unspecified foot with unspecified severity Status: Acute Plan: Podiatry consulted (3) DM (diabetes mellitus) ICD Codes: E11.9 - Type 2 diabetes mellitus without complications Plan: Maintain blood sugars at 140 mg/dl to 180mg/dl (4) Cellulitis of left foot ICD Codes: L03.116 - Cellulitis of left lower limb; L97.509 - Non-pressure chronic ulcer of other part of unspecified foot with unspecified severity Status: Acute Plan: continue antibiotics per ID MRI results noted (Jazlyn De Anda) Problem List: (1) CKD (chronic kidney disease) stage 4, GFR 15-29 ml/min ICD Codes: N18.4 - Chronic kidney disease, stage 4 (severe) Status: Acute Plan: Acute kidney injury with a creatinine of 4.04 , potassium 3.5, and CO2 at 19.2 on day of consult. LARS possible ATN from infection. His underlying chronic kidney disease stage 4 is likely due to diabetic nephropathy. He is followed by [employer] Dr. Garsia in [place] and was last seen in July. On admission creatinine was 3.4 which I suspect is his baseline. Patient has had recent admission in September for DKA and had dialysis X 2. He also has a AVF in right arm with good thrill and bruit. AVF has never been used and according to patient not ready for use. Renal US with echogenic kidneys consistent with underlying medical renal disease. No obstruction, bilateral small renal cysts, and tiny nonobstructing left renal stone. Plan Will monitor renal panel and urinary output UA C+S pending Renal diet Fluids encouraged Sodium bicarbonate put on hold with hypernatremia and CO2 level normal No urgent need for dialysis at this point will monitor. Per nephrology standpoint if creatinine continues to improve he can be discharged home. He has a follow up appt this month with Dr. Garsia. Signs of uremia reviewed with patient and instructed to go to ER if symptoms present. Seen by vascular no intervention recommended. If not discharged labs in AM. Patient seen and examined, agree with above. If discharge, to follow with his Take Out Waitress. (2) Diabetic foot ulcer ICD Codes: E11.621 - Type 2 diabetes mellitus with foot ulcer; L97.509 - Non- pressure chronic ulcer of other part of unspecified foot with unspecified severity Status: Acute Plan: Podiatry consulted (3) DM (diabetes mellitus) ICD Codes: E11.9 - Type 2 diabetes mellitus without complications Plan: Maintain blood sugars at 140 mg/dl to 180mg/dl (4) Cellulitis of left foot ICD Codes: L03.116 - Cellulitis of left lower limb; L97.509 - Non-pressure chronic ulcer of other part of unspecified foot with unspecified severity Status: Acute Plan: continue antibiotics per ID MRI results noted (Jackie Gifford MD) Jazlyn De Anda December 06, 2017 10:23 Jackie Gifford MD December 06, 2017 20:24
[2017-12-06 11:12] VITALS: O2SAT 97
[2017-12-06] MEDS ORDERED: HYDR-3516 PO (11:54)
[2017-12-06] MEDS ORDERED: LEVA250T14 PO (11:54)
--- NOTE | 2017-12-06 11:56 | HHI.DS ---
Discharge Summary Admission Date December 01, 2017 at 6:21 pm Discharge Date: December 06, 2017 Admitting Diagnosis Cellulitis, diabetic foot ulcer, hypokalemia (1) Cellulitis of left foot ICD Code: L03.116 - Cellulitis of left lower limb; L97.509 - Non-pressure chronic ulcer of other part of unspecified foot with unspecified severity Status: Acute (2) Hypokalemia ICD Code: E87.6 - Hypokalemia; L97.509 - Non-pressure chronic ulcer of other part of unspecified foot with unspecified severity Status: Acute (3) CKD (chronic kidney disease) stage 4, GFR 15-29 ml/min ICD Code: N18.4 - Chronic kidney disease, stage 4 (severe) Status: Acute (4) H/O deep venous thrombosis ICD Code: Z86.718 - Personal history of other venous thrombosis and embolism (5) DM (diabetes mellitus) ICD Code: E11.9 - Type 2 diabetes mellitus without complications Procedures none Brief History - From Admission This is a 37-year-old male with a PMH of HTN, DM, h/o DVT on Eliquis, CKD Stage IV and Left Foot Ulcer who was referred to the ER by his Supervisor [employer] for evaluation of left foot infection. Seen in the ER on 11/27/2017 for similar complaints, X-ray of foot and ankle with no evidence of fracture, LE Doppler negative for DVT, symptoms thought to be due secondary to ankle sprain and was ultimately discharged from the ER. States symptoms have been ongoing for the last 2 weeks. Denies fever or chills. Was seen today by Supervisor [employer] referred to the ER for likely foot infection. On arrival, BP 111/64, HR 98, O2 sat 98% on RA, Afebrile. WBC 9.2. K+ 2.8. Creatinine 4.09, previously 3.26 on 11/14/2017. Lactic acid normal. S/p Blood Cultures, Vanc/Levaquin in ER. CBC/BMP: 12/02/17 0631 12/05/17 1836 Significant Findings Laboratory Tests Test 12/04/17 07:23 12/05/17 10:55 12/05/17 17:50 12/05/17 18:36 Blood Urea Nitrogen 26 MG/DL (7-18) 32 MG/DL (7-18) Creatinine 3.84 MG/DL (0.60-1.30) 3.69 MG/DL (0.60-1.30) Random Glucose 109 MG/DL (74-106) 320 MG/DL (74-106) 512 MG/DL (74-106) Calcium Level 8.2 MG/DL (8.5-10.1) 8.1 MG/DL (8.5-10.1) Sodium Level 147 MEQ/L (136-145) Chloride Level 117 MEQ/L (98-107) 109 MEQ/L (98-107) Estimat Glomerular Filtration Rate 18 ML/MIN (>89) 19 ML/MIN (>89) Carbon Dioxide Level 19.1 MEQ/L (21.0-32.0) Urine Protein 100 mg/dL (NEG-TRACE) Urine Glucose (UA) 1000 mg/dL (NEG) Imaging Last Impressions Foot X-Ray 12/02/17 0000 Signed Impressions: Service Date/Time: Saturday, December 02, 2017 10:08 - CONCLUSION: Focal soft tissue edema overlying the plantar aspect of the calcaneus which appears progressive from prior exam. No evidence of osteomyelitis or retained foreign body. Casi Enriquez MD Foot MRI 12/02/17 0000 Signed Impressions: Service Date/Time: Saturday, December 02, 2017 15:46 - CONCLUSION: Cellulitis with soft tissue inflammatory changes large wound lateral aspect of the calcaneus and does extend to the calcaneus without evidence for osteomyelitis. Again this does touch the cortical surface of the calcaneus as well as the insertion of the plantar aponeurosis. Ulysses Peralta MD FACR Renal Ultrasound 12/01/17 0000 Signed Impressions: Service Date/Time: Friday, December 01, 2017 19:24 - CONCLUSION: 1. Echogenic kidneys consistent with underlying medical renal disease. No obstruction. 2. Bilateral small renal cysts. 3. Tiny nonobstructing left renal stone. Jacob Funes Jr., MD PE at Discharge GENERAL: Alert, oriented 3, NAD. SKIN: Warm and dry. HEAD: Normocephalic. EYES: No scleral icterus. No injection or drainage. NECK: Supple, trachea midline. No JVD or lymphadenopathy. CARDIOVASCULAR: Regular rate and rhythm without murmurs, gallops, or rubs. RESPIRATORY: Breath sounds equal bilaterally. No accessory muscle use. GASTROINTESTINAL: Abdomen soft, non-tender, nondistended. MUSCULOSKELETAL: No cyanosis, or edema. There is a full-thickness eschar on the left heel. BACK: Nontender without obvious deformity. No CVA tenderness. Pt update on day of discharge Patient is currently doing well. Ambulating well. No fever, chills. ID recommended Levaquin 250mg PO Q48hrs for 7 doses. Hospital Course This is a 37-year-old male with a PMH of HTN, DM, h/o DVT on Eliquis, CKD Stage IV and Left Foot Ulcer who was referred to the ER by his Super[employer] for evaluation of left foot infection. On arrival, BP 111/64, HR 98, O2 sat 98% on RA, Afebrile. WBC 9.2. K+ 2.8. Creatinine 4.09, previously 3.26 on 2017. Lactic acid normal. S/p Blood Cultures, Vanc/Levaquin in ER. Left heel ulcerative wound - Appreciate ID and Podiatry. Pt was on Levaquin and Vancomycin. - With no leukocytosis, fever. No evidence of osteomyelitis. - Discussed with ID, we discontinued Vancomycin on 12/03/2017. - Vascular surgery evaluated - no vascular surgery interventions recommended. - ID recommended Levaquin 250mg Q48hrs for 7 doses upon discharge. Acute on CKD Mild hypernatremia - Creatinine 4.01 --> 3.84. - D5W to correct hypernatremia. Discontinued D5W. - Nephrology is following. Diabetes mellitus - continue Sliding scale insulin. continue Levemir 5 units QHS. Hx of DVT - currently on Apixaban 5mg BID. Full code. Apixaban. Pt Condition on Discharge: Good Discharge Disposition: Discharge Home Discharge Time: <= 30 minutes Discharge Instructions DIET: Follow Instructions for: Heart Healthy Diet, Renal Failure Diet Activities you can perform: Regular-No Restrictions Follow up Referrals: PCP Follow-up - 1 Week Wound Care Clinic - 1 Week New Medications: Levofloxacin (Levaquin) 250 Mg Tablet 250 MG PO EVERY OTHER DAY for Infection, #7 TAB 0 Refills Hydrocodone/Acetaminophen (Hydrocodone-Acetamin 5-325 mg) 5 Mg-325 Mg Tablet 1 TAB PO Q6HR PRN for PAIN SCALE 5 TO 10, #12 TAB Continued Medications: Alprazolam (Xanax) 0.5 Mg Tab 0.5 MG PO Q6H PRN for ANXIETY, TAB 0 Refills Apixaban (Eliquis) 5 Mg Tab 5 MG PO BID for Blood Clot Prevention, #60 TAB 0 Refills Cholecalciferol (Vitamin D3) 50,000 Unit Cap 74843 UNITS PO Q7D for Nutritional Supplement, #1 BOTTLE 0 Refills Insulin Lispro (Human) Inj (Humalog Inj) 1,000 Unit/10 Ml Vial Unknown Dose SQ CONTINUOUS for Blood Sugar Management, #1 VIAL 0 Refills Max dose at bedtime:( )units; sugars< 70,(0)units; sugars 150-199,(1)unit; sugars 200-249,(3)units; sugars 250-299,(5)units; sugars 300-349,(7)units; sugars more than 349,(9)units. Loratadine (Allergy Relief) 10 Mg Tab 10 MG PO DAILY, TAB Ondansetron (Zofran) 4 Mg Tab 4 MG PO Q6HR PRN for NAUSEA OR VOMITING, #20 TAB 0 Refills Paricalcitol (Paricalcitol) 4 Mcg Cap 4 MCG PO HS for Secondary hyperparathyroidism, #30 CAP 0 Refills Sertraline (Sertraline) 100 Mg Tab 100 MG PO DAILY, #30 TAB 0 Refills Topiramate (Topamax) 50 Mg Tab 150 MG PO BID for Control Seizures, #60 TAB 0 Refills [Insulin Pump] () Discontinued Medications: Aspirin (Aspirin 81 Low Dose) 81 Mg Chew 81 MG CHEW DAILY, #30 TAB Sodium Bicarbonate (Sodium Bicarbonate) 325 Mg Tab 325 MG PO BIDPC, #60 TAB 0 Refills Tramadol (Tramadol) 50 Mg Tab 50 MG PO Q6H PRN for PAIN, TAB 0 Refills Nanda Hernandez DO December 06, 2017 11:56
[2017-12-06 12:10] VITALS: BP 130/81; PULSE 80; RESP 19; TEMP 98; O2SAT 98
--- NOTE | 2017-12-06 19:26 | HHI.PR ---
Subjective Remarks Late entry for 12/05/2017 Follow-up for left foot ulceration and worsening CKD stage IV. Doing well. No fever, chills. ID consulted Vascular surgery for an evaluation. Objective Vitals Vital Signs Date Time Temp Pulse Resp B/P (MAP) Pulse Ox O2 Delivery O2 Flow Rate FiO2 12/06/17 12:10 98.0 80 19 130/81 (97) 98 12/06/17 11:12 97 12/06/17 07:43 98.3 81 19 133/82 (99) 97 12/06/17 04:00 98.4 79 18 123/73 (90) 98 12/06/17 00:00 97.5 78 18 168/88 (114) 92 12/05/17 20:00 97.4 79 18 108/64 (79) 98 I/O 12/05/17 12/05/17 12/05/17 12/06/17 12/06/17 12/06/17 07:00 15:00 23:00 07:00 15:00 23:00 Intake Total 1000 ml Balance 1000 ml IV Total 1000 ml # Voids 2 2 # Bowel Movements 1 Result Diagram: 12/02/17 0631 12/05/17 1836 Objective Remarks GENERAL: Alert, oriented 3, NAD. SKIN: Warm and dry. HEAD: Normocephalic. EYES: No scleral icterus. No injection or drainage. NECK: Supple, trachea midline. No JVD or lymphadenopathy. CARDIOVASCULAR: Regular rate and rhythm without murmurs, gallops, or rubs. RESPIRATORY: Breath sounds equal bilaterally. No accessory muscle use. GASTROINTESTINAL: Abdomen soft, non-tender, nondistended. MUSCULOSKELETAL: No cyanosis, or edema. There is a full-thickness eschar on the left heel. BACK: Nontender without obvious deformity. No CVA tenderness. Procedures none A/P Problem List: (1) Cellulitis of left foot ICD Code: L03.116 - Cellulitis of left lower limb; L97.509 - Non-pressure chronic ulcer of other part of unspecified foot with unspecified severity Status: Acute (2) Hypokalemia ICD Code: E87.6 - Hypokalemia; L97.509 - Non-pressure chronic ulcer of other part of unspecified foot with unspecified severity Status: Acute (3) CKD (chronic kidney disease) stage 4, GFR 15-29 ml/min ICD Code: N18.4 - Chronic kidney disease, stage 4 (severe) Status: Acute (4) H/O deep venous thrombosis ICD Code: Z86.718 - Personal history of other venous thrombosis and embolism (5) DM (diabetes mellitus) ICD Code: E11.9 - Type 2 diabetes mellitus without complications Assessment and Plan This is a 37-year-old male with a PMH of HTN, DM, h/o DVT on Eliquis, CKD Stage IV and Left Foot Ulcer who was referred to the ER by his Sr. Payroll Processor for evaluation of left foot infection. On arrival, BP 111/64, HR 98, O2 sat 98% on RA, Afebrile. WBC 9.2. K+ 2.8. Creatinine 4.09, previously 3.26 on 2017. Lactic acid normal. S/p Blood Cultures, Vanc/Levaquin in ER. Left heel ulcerative wound - Appreciate ID and Podiatry. Pt was on Levaquin and Vancomycin. - With no leukocytosis, fever. No evidence of osteomyelitis. - Discussed with ID, we discontinued Vancomycin on 12/03/2017. - Vascular surgery evaluated - no vascular surgery interventions recommended. Acute on CKD Mild hypernatremia - Creatinine 4.01 --> 3.84. - D5W to correct hypernatremia. - Nephrology is following. Diabetes mellitus - continue Sliding scale insulin. continue Levemir 5 units QHS. Hx of DVT - currently on Apixaban 5mg BID. Full code. Apixaban. Nanda Hernandez DO December 06, 2017 19:26
[2017-12-08] MEDS ORDERED: CHOLECALCIFEROL (VIT D3) 5000 UNIT CAP PO SCH (09:00)
== END 2017-12-06 16:17 | disposition home or self-care (01) | DRG 603 ==
LOC: NEPE 12:46 → NEDA 18:21 → N05A 20:08
PROVIDERS: ADMIT Hospitalist; ATTEND Hospitalist
DX: L03.116 Cellulitis of left lower limb (principal); E11.22 Type 2 diabetes mellitus with diabetic chronic kidney disease; N17.9 Acute kidney failure, unspecified; G62.9 Polyneuropathy, unspecified; N18.4 Chronic kidney disease, stage 4 (severe); E11.621 Type 2 diabetes mellitus with foot ulcer; E11.40 Type 2 diabetes mellitus with diabetic neuropathy, unspecified; M41.9 Scoliosis, unspecified; L97.509 Non-pressure chronic ulcer of other part of unspecified foot with unspecified severity; E11.319 Type 2 diabetes mellitus with unspecified diabetic retinopathy without macular edema; H54.61 Unqualified visual loss, right eye, normal vision left eye; Z79.4 Long term (current) use of insulin; I10 Essential (primary) hypertension; E87.6 Hypokalemia; E78.5 Hyperlipidemia, unspecified; F43.10 Post-traumatic stress disorder, unspecified; N52.9 Male erectile dysfunction, unspecified; M21.372 Foot drop, left foot; F32.9 Major depressive disorder, single episode, unspecified; F41.9 Anxiety disorder, unspecified; Z86.718 Personal history of other venous thrombosis and embolism; Z79.02 Long term (current) use of antithrombotics/antiplatelets; Z86.73 Personal history of transient ischemic attack (TIA), and cerebral infarction without residual deficits; Z86.14 Personal history of Methicillin resistant Staphylococcus aureus infection
CPT/HCPCS: 73630; 73718; 76775; 80048; 80053; 80069; 80202; 81001; 82947; 82948; 83605; 83735; 84100; 85025; 85610; 85652; 85730; 86140; 87040; 93005; 96361; 96365; 96375; J1815; J1956; J3370; J3480; J7030; J7040; J7050; J7070

== ENCOUNTER 2018-01-26 04:14 | Inpatient (IN) ==
[2018-01-26] MEDS ORDERED: Sod Chloride 0.9% Inj 1,000 ML IV.SIG ONE ×2 (04:38→04:42)
[2018-01-26] MEDS ORDERED: Pantoprazole Inj 40 MG Vial IV.PUSH ONE (04:38)
--- NOTE | 2018-01-26 05:19 | ED ---
HPI General Chief Complaint: Nausea/Vomiting/Diarrhea Stated Complaint: diabetic symptoms evac Time Seen by Provider: 01/26/18 04:37 History of Present Illness HPI narrative: 37-year-old male presents to the emergency department by EMS transport from home for evaluation of nausea vomiting abdominal pain and mild diarrhea since 8 PM. Patient is a type I diabetic who was feeling well all day yesterday eating well taking his insulin as prescribed with sliding scale and scheduled insulin and then at 8 PM started feeling poorly and has had multiple episodes of vomiting subsequently. Patient is not aware of any hematemesis coffee-ground emesis bilious emesis and or melena or hematochezia. Patient does have visual impairment secondary to diabetic retinopathy with loss of vision in the right eye and 30% vision in the left eye. Patient states she is concerned that he may have recurrent DKA because he does have infected left heel diabetic ulcer that has been under the care of wound management but was just prescribed an antibiotic today and is only able to get the prescription sent to the pharmacist today so has not yet started an antibiotic. Patient's had no fever chills. Patient has had heel pain. Patient is not aware of any drainage. Patient states however stress like infection is a typical precipitant for an episode of DKA for him. Patient rates his heel pain as mild to moderate. Patient was unable to tolerate vomiting or control vomiting at home so presents now for evaluation for MD complaint: abdominal pain Onset (ago): hour(s) Pain Consistency: intermittent Location: diffuse Severity: moderate Quality: cramping and aching Radiation: none Migration to: no migration Relieving factors: nothing Exacerbating factors: nothing Associated symptoms: nausea, vomiting and diarrhea Related Data Allergies Allergy/AdvReac Type Severity Reaction Status Date / Time amoxicillin Allergy Severe Rash Verified 12/01/17 13:10 broccoli Allergy Severe ANAPHYLAXIS Verified 12/01/17 13:10 mushroom Allergy Severe ANAPHYLAXIS Verified 12/01/17 13:10 penicillin G Allergy Severe Hives Verified 12/01/17 13:10 *MDRO Multi-Drug Resistant AdvReac Unknown Uncoded 12/01/17 13:10 Organism Review of Systems Except as stated in HPI: all other systems reviewed are negative PMFSH History History Provided By: Patient Medical History Medical History Anxiety (Acute) Depression (Acute) Diabetes (Acute) Diabetic retinopathy (Acute) Diabetic ulcer of heel (Acute) Neuropathy (Acute) Social History Social History Recent Travel in [facility] within the Last 8 Weeks: No Recent Out of Country Travel within the Last 8 Weeks: No Exam Narrative Exam Narrative: GENERAL: Well-nourished, well-developed patient. SKIN: Focused skin assessment warm/dry. HEAD: Normocephalic. EYES: No scleral icterus. No injection or drainage. NECK: Supple, trachea midline. No JVD or lymphadenopathy. CARDIOVASCULAR: Regular rate and rhythm without murmurs, gallops, or rubs. RESPIRATORY: Breath sounds equal bilaterally. No accessory muscle use. GASTROINTESTINAL: Abdomen soft, non-tender, nondistended. MUSCULOSKELETAL: No cyanosis, or edema. Left heel ulcer 2.5 cm x 2 cm with debris -hair; dorsalis pedis pulse 2+ BACK: Nontender without obvious deformity. No CVA tenderness. Course Initial Documented Vital Signs Temperature 98.3 F 01/26/18 05:00 Pulse Rate 108 H 01/26/18 05:00 Respiratory Rate 20 01/26/18 05:00 Blood Pressure 114/51 L 01/26/18 05:00 Pulse Oximetry 98 01/26/18 05:00 Last Documented Vital Signs Temperature 98.3 F 01/26/18 05:00 Pulse Rate 110 H 01/26/18 05:20 Respiratory Rate 20 01/26/18 05:00 Blood Pressure 114/51 L 01/26/18 05:00 Pulse Oximetry 98 01/26/18 05:00 Critical Care Time Critical Care Time: Yes Total Critical Care Time: 40 Attestation: Aggregate critical care time was 40 minutes. Time to perform other separately billable procedures was not included in the critical care time. My time did not include minutes spent treating any other patients simultaneously or on activities that did not directly contribute to the patient's treatment. The services I provided to this patient were to treat and/or prevent clinically significant deterioration that could result in: Arrhythmia, septic shock, I provided critical care services requiring my management, as noted below: Chart data review, documentation time, medication orders and management, vital sign assessments/reviewing monitor data, ordering and reviewing lab tests, ordering and interpreting/reviewing x-rays and diagnostic studies, care of the patient and discussion of the patient with the admitting physicians. Medical Decision Making MDM Narrative Medical decision making narrative: patient with type I DM presents with n/v/d and abdominal pain as well as noted left heel ulcer. Placed on monitor with continuous pulse oximetry IV access and administered 2 L NS boluses with insulin 6 U IV for initial dka management. labs resulting bicarb 8 ag 33 glu 1109 and potassium 3.7--DKA protocol ordered; hematology nurse educator notified and aware patient has end stage renal disease requiring HD in september during dka admission @ 0600 discussed with hematology nurse educator Dr Funes --will admit to his service [place] [facility] [place] and ck on HD availability Patient venous pH: 7.16 bed changed to [facility] as not able to provide HD at [facility] Patient notified of admission and plan to transfer to [facility] Differential Diagnosis Differential Diagnosis: dka, sepsis, electrolyte disorder, lactic acidosis, heel wound infection, dehydration, colitis, gastroenteritis Medical Records Medical records reviewed: Yes I reviewed the patient's medical records. Lab Data Lab results reviewed: Yes I reviewed the patient's lab results. Result diagrams: 01/26/18 05:00 01/26/18 05:00 Lab Results 01/26/18 01/26/18 01/26/18 Range/Units 04:50 05:00 05:00 CBC w Diff Auto diff final WBC 15.1 H (4.0-11.0) th/mm3 RBC 3.59 L (4.50-5.90) mil/mm3 Hgb 10.6 L (13.0-17.0) gm/dL Hct 32.0 L (39.0-51.0) % MCV 89.0 (80.0-100.0) fL MCH 29.6 (27.0-34.0) pg MCHC 33.3 (32.0-36.0) % RDW 15.1 (11.6-17.2) % Plt Count 283 (150-450) th/mm3 MPV 10.7 (7.0-11.0) fL Neut % (Auto) 92.9 H (16.0-70.0) % Lymph % (Auto) 3.9 L (9.0-44.0) % Bath % (Auto) 2.4 (0.0-8.0) % Eos % (Auto) 0.2 (0.0-4.0) % Baso % (Auto) 0.6 (0.0-2.0) % Neut # (Auto) 14.0 H (1.8-7.7) th/mm3 Lymph # (Auto) 0.6 L (1.0-4.8) th/mm3 Bath # (Auto) 0.4 (0.0-0.9) th/mm3 Eos # (Auto) 0.0 (0.0-0.4) th/mm3 Baso # (Auto) 0.1 (0.0-0.2) th/mm3 WBC Differential . Puncture Site Patient Temperature VBG pH (7.360-7.400) VBG pCO2 (44-48) mmHG VBG pO2 (35-40) mmHG VBG HCO3 (22-26) mmol/L VBG O2 Saturation (70-76) % VBG O2 Content (9.0-17.0) Vol % VBG Base Excess (-2-2) mmol/L VBG Carboxyhemoglobin (0-4) % VBG Methemoglobin (0-2) % Hemoglobin (12.0-16.0) G/DL O2 Delivery Device Inspired O2 % Critical Value Sodium 126 L (136-145) meq/L Potassium 3.7 (3.5-5.1) meq/L Chloride 85 L (98-107) meq/L Carbon Dioxide 8.0 L (21.0-32.0) meq/L Anion Gap 33 H (5-15) meq/L BUN 52 H (7-18) mg/dL Creatinine 4.70 H (0.60-1.30) mg/dL Estimated GFR 14 L (>89) mL/min Random Glucose 1109 H* (74-106) mg/dL Lactic Acid 2.3 H (0.4-2.0) mmol/L Calcium 7.7 L (8.5-10.1) mg/dL Total Bilirubin 0.5 (0.2-1.0) mg/dL AST 24 (15-37) U/L ALT 30 (12-78) U/L Alkaline Phosphatase 133 H (45-117) U/L Troponin I Less than 0.02 L (0.02-0.05) ng/mL Total Protein 6.5 (6.4-8.2) g/dL Albumin 2.8 L (3.4-5.0) g/dL Lipase 545 H (73-393) U/L Beta-Hydroxybutyric Acd (0.00-0.39) mmol/L Blood Type Confirm 01/26/18 01/26/18 01/26/18 Range/Units 05:00 05:21 06:03 CBC w Diff WBC (4.0-11.0) th/mm3 RBC (4.50-5.90) mil/mm3 Hgb (13.0-17.0) gm/dL Hct (39.0-51.0) % MCV (80.0-100.0) fL MCH (27.0-34.0) pg MCHC (32.0-36.0) % RDW (11.6-17.2) % Plt Count (150-450) th/mm3 MPV (7.0-11.0) fL Neut % (Auto) (16.0-70.0) % Lymph % (Auto) (9.0-44.0) % Bath % (Auto) (0.0-8.0) % Eos % (Auto) (0.0-4.0) % Baso % (Auto) (0.0-2.0) % Neut # (Auto) (1.8-7.7) th/mm3 Lymph # (Auto) (1.0-4.8) th/mm3 Bath # (Auto) (0.0-0.9) th/mm3 Eos # (Auto) (0.0-0.4) th/mm3 Baso # (Auto) (0.0-0.2) th/mm3 WBC Differential Puncture Site Iv Patient Temperature 98.6 VBG pH 7.16 L* (7.360-7.400) VBG pCO2 18 L* (44-48) mmHG VBG pO2 58 H (35-40) mmHG VBG HCO3 6 L* (22-26) mmol/L VBG O2 Saturation 83 H (70-76) % VBG O2 Content 10.6 (9.0-17.0) Vol % VBG Base Excess -21.0 L (-2-2) mmol/L VBG Carboxyhemoglobin 1.8 (0-4) % VBG Methemoglobin 1.4 (0-2) % Hemoglobin 9.0 L (12.0-16.0) G/DL O2 Delivery Device Room air Inspired O2 21 % Critical Value Yes Sodium (136-145) meq/L Potassium (3.5-5.1) meq/L Chloride (98-107) meq/L Carbon Dioxide (21.0-32.0) meq/L Anion Gap (5-15) meq/L BUN (7-18) mg/dL Creatinine (0.60-1.30) mg/dL Estimated GFR (>89) mL/min Random Glucose (74-106) mg/dL Lactic Acid (0.4-2.0) mmol/L Calcium (8.5-10.1) mg/dL Total Bilirubin (0.2-1.0) mg/dL AST (15-37) U/L ALT (12-78) U/L Alkaline Phosphatase (45-117) U/L Troponin I (0.02-0.05) ng/mL Total Protein (6.4-8.2) g/dL Albumin (3.4-5.0) g/dL Lipase (73-393) U/L Beta-Hydroxybutyric Acd 10.13 H (0.00-0.39) mmol/L Blood Type Confirm B Positive Imaging Data Radiologist's impression: ITS Impressions Chest X-Ray 01/26/18 04:38 CONCLUSION: No evidence of acute cardiopulmonary disease. ECG Data EKG Prior to Arrival: No Interpretation: EKG: sinus tachycardia 106 normal axis no acute ST elevation nonspecific ST depression Discharge Plan Discharge Disposition Patient Disposition: 30 Still Patient Discharge Details Discharge Problem: DKA, type 1, End stage renal disease on dialysis due to type 1 diabetes mellitus, Colitis Physicians Team ED Provider: Clare Strong Primary Care Provider: Brittany Lovelace Attending Provider: Jose Christiansen Status ED Status: Admitted Patient
[2018-01-26 05:26] LABS: Chloride 85 meq/L (98-107); Potassium 3.7 meq/L (3.5-5.1); Sodium 126 meq/L (136-145)
[2018-01-26 05:30] LABS: Albumin 2.8 g/dL (3.4-5.0); Anion Gap 33 meq/L (5-15); Blood Urea Nitrogen 52 mg/dL (7-18); Calcium 7.7 mg/dL (8.5-10.1); Lipase 545 U/L (73-393)
[2018-01-26 05:33] LABS: Alanine Aminotransferase 30 U/L (12-78); Aspartate Aminotransferase 24 U/L (15-37); Glomerular Filtration Rate 14 mL/min (>89)
[2018-01-26 05:35] LABS: Total Protein 6.5 g/dL (6.4-8.2)
--- NOTE | 2018-01-26 05:42 | XR ---
EXAM DATE: 01/26/2018 5:34 AM EDT AGE/SEX: 37 years / Male INDICATIONS: Weakness, nausea, vomiting CLINICAL DATA: This is the patient's initial encounter. Patient reports that signs and symptoms have been present for 1 day and indicates a pain score of 10/10. MEDICAL/SURGICAL HISTORY: . Hypercholesterolemia. Hypertension. Diabetic, ADHD, renal failure None. COMPARISON: PO, CHEST SINGLE AP, 11/05/2017. . FINDINGS: A single AP view of the chest demonstrates the lungs to be symmetrically aerated without evidence of mass, infiltrate or effusion. The cardiomediastinal contours are unremarkable. Osseous structures a re intact. CONCLUSION: No evidence of acute cardiopulmonary disease. Electronically signed by: Jad Adams MD 01/26/2018 5:41 AM EDT
[2018-01-26 05:48] LABS: Alkaline Phosphatase 133 U/L (45-117)
[2018-01-26] MEDS ORDERED: Potassium Chlor 20 mEq Premix 20 MEQ/100 ML PIGGYBACK IV.SIG PRN ×4 (05:49)
[2018-01-26] MEDS ORDERED: Sodium Phosphate Inj 15 MMOL in Sodium Chlor 0.9% Inj 100 ML IV.SIG PRN (05:49)
[2018-01-26] MEDS ORDERED: Potassium Chlor 40 mEq Premix 40 MEQ/100 ML PIGGYBACK IV.SIG PRN ×2 (05:49)
[2018-01-26 05:50] LABS: Glucose,Random 1109 mg/dL (74-106)
[2018-01-26] MEDS ORDERED: Vancomycin Inj 1 GM/200 ML PIGGYBACK IV.SIG ONE (06:06)
[2018-01-26] MEDS ORDERED: Acetaminophen 325 MG Tablet PO PRN (06:13)
[2018-01-26 06:15] LABS: VBG Blood Gas Oxygen Content 10.6 Vol % (9.0-17.0); VBG PCO2 18 mmHG (44-48); VBG PH 7.16 (7.360-7.400); VBG PO2 58 mmHG (35-40)
--- NOTE | 2018-01-26 06:22 | P.HPCC ---
History of Present Illness Service: Critical Care Medicine Primary Care Physician: Brittany Lovelace Chief Complaint: nausea/vomiting History of Present Illness: 37yM with history of type I diabetes and ESRD with permanent fistula presents for worsening nausea/vomiting. of note, he has a wound on his foot that has been seen by wound clinic and was prescribed an antibiotic but has not filled the prescription or taken the medication yet. in the ER, he is found to be in DKA with an elevated glucose to 1100, venous pH 7.1, bicarb 8, k 3.7, Cr >4. endoreses n/v/abdominal pain, denies chest pain, sob. denies fever, chills. visibly in distress on exam. remainder of ROS negative.. of note, patient has an insulin pump which is functioning properly and is currently running. Inpatient Certification: I certify that the inpatient services were ordered in accordance with Medicare regulations governing the order. This includes certification that hospital inpatient services are reasonable and necessary and in the case of services not specified as inpatient-only under 42 CFR 419.22(n), that they are appropriately provided as inpatient services in accordance to with the 2-midnight benchmark under 43 CFR 412.3(e) Estimated Total Length of Stay (Days): 5 Plans for Post Hospital Care: Not yet determined Review of Systems All other systems reviewed negative except as stated [facility] - History History Provided By: Patient, Medical Record - Medical History Medical History: Medical History (Last Updated 01/26/18 @ 07:26 by Jose Christiansen MD) AVF (arteriovenous fistula) Anxiety CKD (chronic kidney disease) stage 5, GFR less than 15 ml/min DVT (deep venous thrombosis) Depression Diabetes Diabetic retinopathy Diabetic ulcer of heel Hypertension Neuropathy - Surgical History Surgical History: Surgical History (Last Updated 01/26/18 @ 07:25 by Jose Christiansen MD) Status post right foot surgery - Tobacco History Second Hand Smoke Exposure: Yes Tobacco Use In Past 30 Days: No Smoking Status: Former smoker Tobacco Type: E-Cigarettes - Alcohol History How Often Do You Have a Drink Containing Alcohol: Never - Substance Use Type Marijuana Status: Active - Travel History History of Recent Travel: No Recent Travel in the [place] Within the Last 8 Weeks: No Recent Travel Out of the Country Within the Last 8 Weeks: No Medications and Allergies Active Medications: Active Medications Acetaminophen (Tylenol) 650 mg PO Q6H PRN PRN Reason: PAIN 1-10 AND/OR FEVER >101F Albuterol (Duoneb Neb (Prn)) 1 ampul NEB Q2HR NEB PRN PRN Reason: WHEEZING Chlorhexidine Gluconate (Chlorhexidine 2% Cloth) 3 pack TOPICAL DAILY@0400 JORDAN Stop: 02/01/18 03:59 Chlorhexidine Gluconate (Chlorhexidine 2% Cloth) 3 pack TOPICAL DAILY@0400 PRN PRN Reason: Extra cloth needed Stop: 02/01/18 03:59 Chlorhexidine Gluconate (Chlorhexidine 2% Cloth) 3 pack TOPICAL DAILY@0400 JORDAN Stop: 02/01/18 03:59 Chlorhexidine Gluconate (Chlorhexidine 2% Cloth) 3 pack TOPICAL DAILY@0400 PRN PRN Reason: Extra cloth needed Stop: 02/01/18 03:59 Heparin Sodium (Porcine) (Heparin Inj) 5,000 units SQ Q12H [facility] Dextrose/Sodium Chloride (D5w/Normal Saline Inj) 1,000 mls @ 200 mls/hr IV.CONT .Q5H [facility] Insulin Human Regular 100 unit (/ Sodium Chloride) 100 mls @ 6 mls/hr IV.CONT TITRATE PRN; Protocol PRN Reason: See protocol Potassium Chloride (Kcl 20 Meq Premix Inj) 20 meq in 100 mls @ 50 mls/hr IV.SIG Q2H PRN PRN Reason: for K+ 4.5 to 5 Potassium Chloride (Kcl 20 Meq Premix Inj) 20 meq in 100 mls @ 100 mls/hr IV.SIG Q1H PRN PRN Reason: for K+ 3.5 to 4.4 Potassium Chloride (Kcl 20 Meq Premix Inj) 20 meq in 100 mls @ 50 mls/hr IV.SIG Q2H PRN PRN Reason: for K+ 3.5 to 4.4 Potassium Chloride (Kcl 20 Meq Premix Inj) 20 meq in 100 mls @ 50 mls/hr IV.SIG Q2H PRN PRN Reason: for Initial K+ ONLY < 3.5 Potassium Chloride (Kcl 40 Meq Premix Inj) 40 meq in 100 mls @ 100 mls/hr IV.SIG Q1H PRN PRN Reason: for Initial K+ ONLY < 3.5 Potassium Chloride (Kcl 20 Meq Premix Inj) 20 meq in 100 mls @ 50 mls/hr IV.SIG Q2H PRN PRN Reason: for Subsequent K+ < 3.5 Potassium Chloride (Kcl 40 Meq Premix Inj) 40 meq in 100 mls @ 50 mls/hr IV.SIG Q2H PRN PRN Reason: for Subsequent K+ < 3.5 Sodium Chloride (Ns Inj) 1,000 mls @ 250 mls/hr IV.CONT .Q4H JORDAN Sodium Phosphate 15 mmol/ (Sodium Chloride) 105 mls @ 25 mls/hr IV.SIG UNSCH PRN PRN Reason: for Phosphate Level < 1.0 Potassium Chloride (Kcl 20 Meq Premix Inj) 20 meq in 100 mls @ 100 mls/hr IV.SIG Q1H PRN PRN Reason: for K+ 4.5 to 5 Vancomycin/Sodium Chloride (Vancomycin Inj) 1 gm in 200 mls @ 200 mls/hr IV.SIG ONCE ONE Stop: 01/26/18 07:05 Aztreonam 2 gm/ Sodium (Chloride) 100 mls @ 200 mls/hr IV.SIG ONCE ONE Stop: 01/26/18 06:40 Aztreonam 500 mg/ Sodium (Chloride) 100 mls @ 200 mls/hr IV.SIG Q12H JORDAN Sodium Bicarbonate (Sodium Bicarbonate 8.4% Inj) 100 meq IV.PUSH UNSCH PRN PRN Reason: for pH less than 6.9 Sodium Bicarbonate (Sodium Bicarbonate 8.4% Inj) 50 meq IV.PUSH UNSCH PRN PRN Reason: for pH 6.9 to 7.0 Sodium Chloride (Ns Flush) 2 ml IV.FLUSH PRN PRN PRN Reason: FLUSH AFTER USING IV ACCESS Sodium Chloride (Ns Flush) 2 ml IV.FLUSH BID JORDAN Sodium Chloride (Ns Flush) 2 ml IV.FLUSH PRN PRN PRN Reason: FLUSH AFTER USING IV ACCESS Allergies Allergy/AdvReac Type Severity Reaction Status Date / Time amoxicillin Allergy Severe Rash Verified 01/26/18 07:11 broccoli Allergy Severe ANAPHYLAXIS Verified 01/26/18 07:11 mushroom Allergy Severe ANAPHYLAXIS Verified 01/26/18 07:11 penicillin G Allergy Severe Hives Verified 01/26/18 07:11 *MDRO Multi-Drug Resistant AdvReac Unknown Arrhythmias Uncoded 01/26/18 07:11 Organism Home Medications Medication Instructions Recorded Confirmed Type Multi Vitamin 01/26/18 History Vitamin D3 01/26/18 History apixaban [Eliquis] 5 mg PO BID 01/26/18 01/26/18 History aspirin 81 mg PO DAILY 01/26/18 01/26/18 History loratadine 10 mg PO DAILY 01/26/18 01/26/18 History paricalcitol 1 mcg PO DAILY 01/26/18 01/26/18 History sertraline 100 mg PO DAILY 01/26/18 01/26/18 History sodium bicarbonate 325 mg PO TID 01/26/18 01/26/18 History topiramate 50 mg PO DAILY 01/26/18 01/26/18 History tramadol 50 mg PO Q6H 01/26/18 01/26/18 History Results - Labs CBC & Chem 7: 01/26/18 05:00 01/26/18 05:00 Labs: Short CBC 01/26/18 Range/Units 05:00 WBC 15.1 H (4.0-11.0) th/mm3 Hgb 10.6 L (13.0-17.0) gm/dL Hct 32.0 L (39.0-51.0) % Plt Count 283 (150-450) th/mm3 BMP 01/26/18 05:00 Sodium 126 L Potassium 3.7 Chloride 85 L Carbon Dioxide 8.0 L BUN 52 H Creatinine 4.70 H Calcium 7.7 L Cardiac Enzymes 01/26/18 Range/Units 05:00 Troponin I Less than 0.02 L (0.02-0.05) ng/mL Liver Function 01/26/18 Range/Units 05:00 Total Bilirubin 0.5 (0.2-1.0) mg/dL AST 24 (15-37) U/L ALT 30 (12-78) U/L Alkaline Phosphatase 133 H (45-117) U/L Albumin 2.8 L (3.4-5.0) g/dL - Imaging Impressions Chest X-Ray 01/26/18 04:38 CONCLUSION: No evidence of acute cardiopulmonary disease. - ABG ABG results: 01/26/18 06:03 VBG pH 7.16 L* VBG pCO2 18 L* VBG pO2 58 H VBG HCO3 6 L* VBG O2 Saturation 83 H VBG Base Excess -21.0 L Interpretation: severe metabolic acidosis. venous gas- unable to interpret respiratory compensation. Exam Vital signs: Vital Signs 01/26/18 05:00 Temperature 36.8 C Pulse Rate 108 H Respiratory Rate 20 Blood Pressure 114/51 L Pulse Oximetry 98 Intake & Output 01/25/18 01/25/18 01/26/18 06:59 18:59 06:59 Weight 63.5 kg Narrative: gen: young male who appears older than stated age, lying in bed in distress, kussmaul breathing heent: nc. at. perrl. mucous membranes dry. neck: trachea midline. no jvd. chest: Kussmaul respirations. tachypneic. room air. cv: tachycardic rate, regular rhythm. sinus. abd: soft, diffusely tender to palpation generally, no guarding or rebound. nondistended. extr: distal pulses 2+. no edema. left lower extremity wrapped in kerlix dressing. neuro: RASS 0. in distress. Septic Shock Reassessment Septic shock perfusion: reassessment completed Caprini VTE Risk Assessment Caprini VTE Risk Assessment: Moderate/High Risk (score >= 2) Caprini Risk Assessment Model: Point Value = 1 Point Value = 2 Point Value = 3 Point Value = 5 Age 41-60 Minor surgery BMI > 25 kg/m2 Swollen legs Varicose veins or History of unexplained or recurrent spontaneous Oral contraceptives or hormone replacement Sepsis (< 1 month) Serious lung disease, including pneumonia (< 1 month) Abnormal pulmonary function Acute myocardial infarction Congestive heart failure (< 1 month) History of inflammatory bowel disease Medical patient at bed rest Age 61-74 Arthroscopic surgery Major open surgery (> 45 min) Laparoscopic surgery (> 45 min) Malignancy Confined to bed (> 72 hours) Immobilizing plaster cast Central venous access Age >= 75 History of VTE Family history of VTE Factor V Leiden Prothrombin [id number] Lupus anticoagulant Anticardiolipin antibodies Elevated serum homocysteine Heparin-induced thrombocytopenia Other congenital or acquired thrombophilia Stroke (< 1 month) Elective arthroplasty Hip, pelvis, or leg fracture Acute spinal cord injury (< 1 month) Prophylaxis Regimen: Total Risk Factor Score Risk Level Prophylaxis Regimen 0-1 Low Early ambulation 2 Moderate Order ONE of the following: *Sequential Compression Device (SCD) *Heparin 5000 units SQ BID 3-4 Higher Order ONE of the following medications: *Heparin 5000 units SQ TID *Enoxaparin/Lovenox 40 mg SQ daily (WT < 150 kg, CrCl > 30 mL/min) *Enoxaparin/Lovenox 30 mg SQ daily (WT < 150 kg, CrCl > 10-29 mL/min) *Enoxaparin/Lovenox 30 mg SQ BID (WT < 150 kg, CrCl > 30 mL/min) AND/OR *Sequential Compression Device (SCD) 5 or more Highest Order ONE of the following medications: *Heparin 5000 units SQ TID (Preferred with Epidurals) *Enoxaparin/Lovenox 40 mg SQ daily (WT < 150 kg, CrCl > 30 mL/min) *Enoxaparin/Lovenox 30 mg SQ daily (WT < 150 kg, CrCl > 10-29 mL/min) *Enoxaparin/Lovenox 30 mg SQ BID (WT < 150 kg, CrCl > 30 mL/min) AND *Sequential Compression Device (SCD) Assessment and Plan - Assessment and Plan Plan: Assessment: 37yM with ESRD and DKA, likely secondary to foot cellulitis. critically ill with severe metabolic acidosis- will likely need urgent hemodialysis to assist in clearing his acid load. Active problems: Severe anion-gap metabolic acidosis Severe Diabetic Ketoacidosis Severe hyperglycemia Foot cellulitis Acute kidney injury superimposed on stage V CKD Hypokalemia Pseudohyponatremia Lactic acidosis history of prior DVT Plan: admit to ICU DKA protocol including ivf, iv insulin infusion, frequent glucose checks, serial BMPs Nephrology consult: will likely need HD to assist in removal of acid aggressive K replacement Vancomycin with pharmacy dosing aztreonam 2gm load, 500mg iv q12h (renally dosed) strict i/o's NPO for now: will advance diet after hyperglycemia results add dextrose to ivf once serum glucose falls below 200. restart home eliquis for h/o DVT protonix SCDs patient will continue his home insulin pump infusion concomitantly. as his anion gap closes, this will provide necessary long-acting insulin. Critical care time: 63 minutes, exclusive of separately billable procedures.
[2018-01-26] MEDS: Insulin Regular (For Infusion) 100 UNIT in Sodium Chlor 0.9% Inj 99 ML IV.CONT PRN ×2 (06:38→17:22)
--- NOTE | 2018-01-26 06:49 | ECG ---
Date Performed: 01/26/2018 Time Performed: 05:08:32 PTAGE: 37 years EKG: SINUS TACHYCARDIA MODERATE ST DEPRESSION ABNORMAL ECG Compared to prior electrocardiogram, Rate has increased and ST depressions are present. PREVIOUS TRACING : 12/01/2017 17.27 DOCTOR: Jeremy Walls Interpretating Date/Time 01/26/2018 06:48:38
[2018-01-26] MEDS: Sod Chloride 0.9% Inj 1,000 ML IV.CONT SCH ×5 (06:50→22:30)
[2018-01-26] MEDS ORDERED: Aztreonam Inj 2 GM in Sodium Chloride 0.9% Inj 100 ML IV.SIG ONE (07:00)
[2018-01-26 09:05] LABS: Bilirubin,Urine Negative (Negative); Clarity,Urine Clear (Clear); Color,Urine Yellow (Yellw/Straw); Leukocyte Esterase,Urine Negative (Negative); Nitrite,Urine Negative (Negative); PH,Urine 5.5 (5.0-8.5); Urobilinogen,Urine 0.2 mg/dL (Less than 2)
[2018-01-26 09:10] LABS: RBC,Urine 0-3 /hpf (0-3); Squamous Epithelial Cell,Urine 0-5 /hpf (0-5); WBC,Urine 0-5 /hpf (0-5)
[2018-01-26] MEDS: Heparin - SQ 10,000 UNITS/ML Vial SQ SCH ×2 (09:29→21:08)
[2018-01-26] MEDS: Potassium Chlor 20 mEq Premix 20 MEQ/100 ML PIGGYBACK IV.SIG PRN ×3 (11:11→21:54)
[2018-01-26 12:43] LABS: Calcium 6.6 mg/dL (8.5-10.1); Carbon Dioxide 10.7 meq/L (21.0-32.0)
[2018-01-26] MEDS ORDERED: Potassium Chloride 25 MEQ Effervescent Tablet PO ONE (15:15)
--- NOTE | 2018-01-26 17:15 | P.CONNP ---
<Jazlyn De Anda - Last Filed: 01/26/18 17:16> History of Present Illness Service: Nephrology Consult date: 01/26/18 Requesting Physician: Jose Christiansen Reason for Consult: Acute kidney injury on chronic kidney disease stage 5 Primary Care Provider: Brittany Lovelace Family Provider: Brittany Lovelace Chief Complaint: nausea/vomiting History of Present Illness: Patient is a 37-year-old male with a past medical history of hypertension, diabetes, h/o DVT on Eliquis, chronic kidney disease Stage IV with AVF in right lower arm. , blindness in right eye, diabetic retinopathy, and Left Foot Ulcer. Presented to emergency room with nausea and vomiting. Found to be in DKA with blood sugar 1109 Nephrology was consulted for acute kidney injury with a creatinine of 4.5 today, potassium 3.0. Suspect is his baseline 3.4-3.7. Patient has had recent admission in September for DKA and had dialysis X 2. He has a AVF in right lower arm with good thrill and bruit. AVF has never been used and according to patient not ready for use. His underlying chronic kidney disease is likely due to diabetic nephropathy. He is followed by Quality Engineer Dr. Garsia in [place]. Review of Systems Constitutional: Reports body ache(s), Reports fatigue, Reports malaise, Reports weakness Cardiovascular: Denies chest pain Respiratory: Reports shortness of breath Gastrointestinal: Reports nausea, Reports vomiting, Denies abdominal pain Musculoskeletal: Reports muscle weakness PMFSH - History History Provided By: Patient, Medical Record - Medical History Medical History: Medical History (Last Updated 01/26/18 @ 07:26 by Jose Christiansen MD) AVF (arteriovenous fistula) Anxiety CKD (chronic kidney disease) stage 5, GFR less than 15 ml/min DVT (deep venous thrombosis) Depression Diabetes Diabetic retinopathy Diabetic ulcer of heel Hypertension Neuropathy - Surgical History Surgical History: Surgical History (Last Updated 01/26/18 @ 07:25 by Jose Christiansen MD) Status post right foot surgery - Tobacco History Second Hand Smoke Exposure: Yes Tobacco Use In Past 30 Days: No Smoking Status: Former smoker Tobacco Type: E-Cigarettes - Alcohol History How Often Do You Have a Drink Containing Alcohol: Monthly or less - Substance Use History Substance History: No History of Abuse - Substance Use Type Marijuana Status: Active - Travel History History of Recent Travel: No Recent Travel in the [place] Within the Last 8 Weeks: No Recent Travel Out of the Country Within the Last 8 Weeks: No - Immunization History Tetanus Immunization: <5 Years Hx Influenza Vaccine This Season: No Medications and Allergies Allergies Allergy/AdvReac Type Severity Reaction Status Date / Time amoxicillin Allergy Severe Rash Verified 01/26/18 07:11 broccoli Allergy Severe ANAPHYLAXIS Verified 01/26/18 07:11 mushroom Allergy Severe ANAPHYLAXIS Verified 01/26/18 07:11 penicillin G Allergy Severe Hives Verified 01/26/18 07:11 *MDRO Multi-Drug Resistant AdvReac Unknown Arrhythmias Uncoded 01/26/18 07:11 Organism Home Medications Medication Instructions Recorded Confirmed Type Multi Vitamin 01/26/18 History Vitamin D3 1,000 units 01/26/18 History apixaban [Eliquis] 5 mg PO BID 01/26/18 01/26/18 History aspirin 81 mg PO DAILY 01/26/18 01/26/18 History insulin pump-infus. set-meter 01/26/18 01/26/18 History loratadine 10 mg PO DAILY 01/26/18 01/26/18 History paricalcitol 1 mcg PO DAILY 01/26/18 01/26/18 History sertraline 100 mg PO DAILY 01/26/18 01/26/18 History sodium bicarbonate 325 mg PO TID 01/26/18 01/26/18 History topiramate 50 mg PO DAILY 01/26/18 01/26/18 History tramadol 50 mg PO Q6H 01/26/18 01/26/18 History Active Medications: Active Medications Acetaminophen (Tylenol) 650 mg PO Q6H PRN PRN Reason: PAIN 1-10 AND/OR FEVER >101F Albuterol (Duoneb Neb (Prn)) 1 ampul NEB Q2HR NEB PRN PRN Reason: WHEEZING Chlorhexidine Gluconate (Chlorhexidine 2% Cloth) 3 pack TOPICAL DAILY@0400 [facility]AN Stop: 02/01/18 03:59 Chlorhexidine Gluconate (Chlorhexidine 2% Cloth) 3 pack TOPICAL DAILY@0400 PRN PRN Reason: Extra cloth needed Stop: 02/01/18 03:59 Chlorhexidine Gluconate (Chlorhexidine 2% Cloth) 3 pack TOPICAL DAILY@0400 JORDAN Stop: 02/01/18 03:59 Chlorhexidine Gluconate (Chlorhexidine 2% Cloth) 3 pack TOPICAL DAILY@0400 PRN PRN Reason: Extra cloth needed Stop: 02/01/18 03:59 Heparin Sodium (Porcine) (Heparin Inj) 5,000 units SQ Q12H [facility] Last Admin: 01/26/18 09:29 Dose: 5,000 units Dextrose/Sodium Chloride (D5w/Normal Saline Inj) 1,000 mls @ 200 mls/hr IV.CONT .Q5H [facility] Insulin Human Regular 100 unit (/ Sodium Chloride) 100 mls @ 6 mls/hr IV.CONT TITRATE PRN; Protocol PRN Reason: See protocol Last Titration: 01/26/18 10:07 Dose: 6 units/hr, 6 mls/hr Potassium Chloride (Kcl 20 Meq Premix Inj) 20 meq in 100 mls @ 50 mls/hr IV.SIG Q2H PRN PRN Reason: for K+ 4.5 to 5 Potassium Chloride (Kcl 20 Meq Premix Inj) 20 meq in 100 mls @ 100 mls/hr IV.SIG Q1H PRN PRN Reason: for K+ 3.5 to 4.4 Last Admin: 01/26/18 14:32 Dose: 100 mls/hr Potassium Chloride (Kcl 20 Meq Premix Inj) 20 meq in 100 mls @ 50 mls/hr IV.SIG Q2H PRN PRN Reason: for K+ 3.5 to 4.4 Potassium Chloride (Kcl 20 Meq Premix Inj) 20 meq in 100 mls @ 50 mls/hr IV.SIG Q2H PRN PRN Reason: for Initial K+ ONLY < 3.5 Potassium Chloride (Kcl 40 Meq Premix Inj) 40 meq in 100 mls @ 100 mls/hr IV.SIG Q1H PRN PRN Reason: for Initial K+ ONLY < 3.5 Potassium Chloride (Kcl 20 Meq Premix Inj) 20 meq in 100 mls @ 50 mls/hr IV.SIG Q2H PRN PRN Reason: for Subsequent K+ < 3.5 Potassium Chloride (Kcl 40 Meq Premix Inj) 40 meq in 100 mls @ 50 mls/hr IV.SIG Q2H PRN PRN Reason: for Subsequent K+ < 3.5 Sodium Chloride (Ns Inj) 1,000 mls @ 250 mls/hr IV.CONT .Q4H [facility] Last Admin: 01/26/18 14:31 Dose: 250 mls/hr Sodium Phosphate 15 mmol/ (Sodium Chloride) 105 mls @ 25 mls/hr IV.SIG UNSCH PRN PRN Reason: for Phosphate Level < 1.0 Potassium Chloride (Kcl 20 Meq Premix Inj) 20 meq in 100 mls @ 100 mls/hr IV.SIG Q1H PRN PRN Reason: for K+ 4.5 to 5 Aztreonam 500 mg/ Sodium (Chloride) 100 mls @ 200 mls/hr IV.SIG Q12H [facility] Ondansetron HCl (Zofran Inj) 4 mg IV.PUSH Q6H PRN PRN Reason: NAUSEA Last Admin: 01/26/18 14:32 Dose: 4 mg Sodium Bicarbonate (Sodium Bicarbonate 8.4% Inj) 100 meq IV.PUSH UNSCH PRN PRN Reason: for pH less than 6.9 Sodium Bicarbonate (Sodium Bicarbonate 8.4% Inj) 50 meq IV.PUSH UNSCH PRN PRN Reason: for pH 6.9 to 7.0 Sodium Chloride (Ns Flush) 2 ml IV.FLUSH PRN PRN PRN Reason: FLUSH AFTER USING IV ACCESS Sodium Chloride (Ns Flush) 2 ml IV.FLUSH BID [facility] Last Admin: 01/26/18 08:16 Dose: 2 ml Sodium Chloride (Ns Flush) 2 ml IV.FLUSH PRN PRN PRN Reason: FLUSH AFTER USING IV ACCESS Exam Vital signs: Vital Signs 01/26/18 05:00 01/26/18 05:20 01/26/18 06:35 Temperature 98.3 F 99.3 F Pulse Rate 108 H 110 H 102 H Respiratory Rate 20 16 Blood Pressure 114/51 L 114/51 L 152/75 H Pulse Oximetry 98 01/26/18 06:55 01/26/18 07:28 01/26/18 08:30 Temperature 98.6 F Pulse Rate 96 H 96 H 94 H Respiratory Rate 16 18 18 Blood Pressure 149/79 H 141/75 H 142/72 H Pulse Oximetry 97 98 96 01/26/18 09:18 01/26/18 09:19 01/26/18 11:00 Temperature 98.9 F Pulse Rate 89 89 Respiratory Rate 18 Blood Pressure 148/75 H Pulse Oximetry 98 Intake & Output 01/25/18 01/26/18 01/26/18 18:59 06:59 18:59 Intake Total 3421 / 3421 Output Total 250 / 250 Balance 3171 / 3171 Weight 63.5 kg Intake: IV 3421 / 3421 NovoLIN R (IV Infusion) 100 21 / 21 UNIT In NS Inj 99 ML @ 6 UNITS/ HR 6 mls/hr IV.CONT TITRATE PRN Rx#:[id number] NS Inj 1,000 ML @ 250 mls/hr IV 1999 .CONT .Q4H [facility] Rx#:[id number] Azactam Inj 2 GM In NS Inj 100 100 / 100 ML @ 200 mls/hr IV.SIG ONCE ONE Rx#:[id number] KCl 20 mEq Premix Inj 20 meq In 100 / 100 100 ml @ 100 mls/hr IV.SIG Q1H PRN Rx#:[id number] Vancomycin Inj 1 gm In 200 ml @ 200 / 200 200 mls/hr IV.SIG ONCE ONE Rx# :[id number] Output: Urine 250 / 250 - Constitutional mild distress - Routine HEENT Exam Head: Present: normocephalic ENT: Present: mucous membranes moist - Routine Neck Exam Present: supple. Absent: JVD - Routine Respiratory Exam Present: decreased breath sounds. Absent: rhonchi - Routine Cardiovascular Exam Present: RRR - Routine Abdominal Exam Present: soft, normoactive bowel sounds - Routine Extremities Exam Absent: edema - Routine Skin Exam Present: dry, warm, wounds Comments: left heel - Routine Neurological Exam Present: alert, oriented X3 Results - Lab Results 01/26/18 05:00 01/26/18 12:00 Most recent lab results Calcium 6.6 mg/dL (8.5-10.1) L* D 01/26/18 12:00 Assessment and Plan - Assessment (1) Chronic kidney disease, stage 4, severely decreased GFR Code(s): N18.4 - Chronic kidney disease, stage 4 (severe) Status: Acute (2) DKA, type 1 Code(s): E10.10 - Type 1 diabetes mellitus with ketoacidosis without coma Status: Acute - Plan Acute kidney injury Acute kidney injury with a creatinine of 4.5 today, potassium 3.0 most likely from DKA and wound infection Has underlying chronic kidney disease is likely due to diabetic nephropathy. He is followed by Quality Engineer Dr. Garsia in [place]. Suspect is his baseline 3.4-3.7. He has a AVF in right lower arm with good thrill and bruit. Per patient not ready for use Creatinine at 4.50 down from 4.70 HCO3 at 10.7, sodium bicarbonate given Urinary output at 250 Continue IVF and DKA protocol Hypokalemia continue replacement Will monitor urinary output and BMP Maintain strict I+O and avoid nephrotoxic agents. May need hemodialysis but not urgent need for hemodialysis now. DKA continue DKA protocol <Stephanie Gifford Q - Last Filed: 01/26/18 22:17> History of Present Illness Primary Care Provider: Brittany Lovelace Family Provider: Brittany Lovelace [facility] - Medical History Medical History: Medical History (Last Updated 01/26/18 @ 07:26 by Jose Christiansen MD) AVF (arteriovenous fistula) Anxiety CKD (chronic kidney disease) stage 5, GFR less than 15 ml/min DVT (deep venous thrombosis) Depression Diabetes Diabetic retinopathy Diabetic ulcer of heel Hypertension Neuropathy - Surgical History Surgical History: Surgical History (Last Updated 01/26/18 @ 07:25 by Jose Christiansen MD) Status post right foot surgery Medications and Allergies Active Medications: Active Medications Acetaminophen (Tylenol) 650 mg PO Q6H PRN PRN Reason: PAIN 1-10 AND/OR FEVER >101F Albuterol (Duoneb Neb (Prn)) 1 ampul NEB Q2HR NEB PRN PRN Reason: WHEEZING Chlorhexidine Gluconate (Chlorhexidine 2% Cloth) 3 pack TOPICAL DAILY@0400 JORDAN Stop: 02/01/18 03:59 Chlorhexidine Gluconate (Chlorhexidine 2% Cloth) 3 pack TOPICAL DAILY@0400 PRN PRN Reason: Extra cloth needed Stop: 02/01/18 03:59 Chlorhexidine Gluconate (Chlorhexidine 2% Cloth) 3 pack TOPICAL DAILY@0400 JORDAN Stop: 02/01/18 03:59 Chlorhexidine Gluconate (Chlorhexidine 2% Cloth) 3 pack TOPICAL DAILY@0400 PRN PRN Reason: Extra cloth needed Stop: 02/01/18 03:59 Dextrose (D50w Vial) 50 ml IV.PUSH UNSCH PRN PRN Reason: PER HYPOGLYCEMIA PROTOCOL Glucagon (Glucagon Inj) 1 mg OTHER PRN PRN PRN Reason: for Hypoglycemia Protocol Heparin Sodium (Porcine) (Heparin Inj) 5,000 units SQ Q12H [facility] Last Admin: 01/26/18 21:08 Dose: 5,000 units Insulin Human Regular 100 unit (/ Sodium Chloride) 100 mls @ 6 mls/hr IV.CONT TITRATE PRN; Protocol PRN Reason: See protocol Stop: 01/26/18 23:59 Last Admin: 01/26/18 17:22 Dose: 7.5 units/hr, 7.5 mls/hr Potassium Chloride (Kcl 20 Meq Premix Inj) 20 meq in 100 mls @ 50 mls/hr IV.SIG Q2H PRN PRN Reason: for K+ 4.5 to 5 Potassium Chloride (Kcl 20 Meq Premix Inj) 20 meq in 100 mls @ 100 mls/hr IV.SIG Q1H PRN PRN Reason: for K+ 3.5 to 4.4 Last Admin: 01/26/18 14:32 Dose: 100 mls/hr Potassium Chloride (Kcl 20 Meq Premix Inj) 20 meq in 100 mls @ 50 mls/hr IV.SIG Q2H PRN PRN Reason: for K+ 3.5 to 4.4 Potassium Chloride (Kcl 20 Meq Premix Inj) 20 meq in 100 mls @ 50 mls/hr IV.SIG Q2H PRN PRN Reason: for Initial K+ ONLY < 3.5 Potassium Chloride (Kcl 40 Meq Premix Inj) 40 meq in 100 mls @ 100 mls/hr IV.SIG Q1H PRN PRN Reason: for Initial K+ ONLY < 3.5 Potassium Chloride (Kcl 20 Meq Premix Inj) 20 meq in 100 mls @ 50 mls/hr IV.SIG Q2H PRN PRN Reason: for Subsequent K+ < 3.5 Last Admin: 01/26/18 21:54 Dose: 50 mls/hr Potassium Chloride (Kcl 40 Meq Premix Inj) 40 meq in 100 mls @ 50 mls/hr IV.SIG Q2H PRN PRN Reason: for Subsequent K+ < 3.5 Sodium Chloride (Ns Inj) 1,000 mls @ 250 mls/hr IV.CONT .Q4H [facility] Last Admin: 01/26/18 20:47 Dose: Not Given Sodium Phosphate 15 mmol/ (Sodium Chloride) 105 mls @ 25 mls/hr IV.SIG UNSCH PRN PRN Reason: for Phosphate Level < 1.0 Potassium Chloride (Kcl 20 Meq Premix Inj) 20 meq in 100 mls @ 100 mls/hr IV.SIG Q1H PRN PRN Reason: for K+ 4.5 to 5 Aztreonam 500 mg/ Sodium (Chloride) 100 mls @ 200 mls/hr IV.SIG Q12H [facility] Last Admin: 01/26/18 21:08 Dose: 200 mls/hr Insulin Aspart (Novolog Insulin Suppl Scale Inj) 0 unit SQ ACHS [facility]; Protocol Insulin Detemir (Levemir Inj) 15 unit SQ HS [facility] Ondansetron HCl (Zofran Inj) 4 mg IV.PUSH Q6H PRN PRN Reason: NAUSEA Last Admin: 01/26/18 14:32 Dose: 4 mg Sodium Bicarbonate (Sodium Bicarbonate 8.4% Inj) 100 meq IV.PUSH UNSCH PRN PRN Reason: for pH less than 6.9 Sodium Bicarbonate (Sodium Bicarbonate 8.4% Inj) 50 meq IV.PUSH UNSCH PRN PRN Reason: for pH 6.9 to 7.0 Sodium Chloride (Ns Flush) 2 ml IV.FLUSH PRN PRN PRN Reason: FLUSH AFTER USING IV ACCESS Sodium Chloride (Ns Flush) 2 ml IV.FLUSH BID [facility] Last Admin: 01/26/18 21:08 Dose: 2 ml Sodium Chloride (Ns Flush) 2 ml IV.FLUSH PRN PRN PRN Reason: FLUSH AFTER USING IV ACCESS Exam Vital signs: Vital Signs 01/26/18 05:00 01/26/18 05:20 01/26/18 06:35 Temperature 98.3 F 99.3 F Pulse Rate 108 H 110 H 102 H Respiratory Rate 20 16 Blood Pressure 114/51 L 114/51 L 152/75 H Pulse Oximetry 98 01/26/18 06:55 01/26/18 07:28 01/26/18 08:30 Temperature 98.6 F Pulse Rate 96 H 96 H 94 H Respiratory Rate 16 18 18 Blood Pressure 149/79 H 141/75 H 142/72 H Pulse Oximetry 97 98 96 01/26/18 09:18 01/26/18 09:19 01/26/18 11:00 Temperature 98.9 F Pulse Rate 89 89 88 Respiratory Rate 18 20 Blood Pressure 148/75 H 133/65 Pulse Oximetry 98 97 01/26/18 12:00 01/26/18 13:00 01/26/18 14:00 Temperature 98.6 F Pulse Rate 90 96 H 93 H Respiratory Rate 19 20 16 Blood Pressure 137/70 129/64 130/65 Pulse Oximetry 98 96 95 01/26/18 15:00 01/26/18 16:00 01/26/18 17:00 Temperature Pulse Rate 91 H 91 H 81 Respiratory Rate 15 18 13 Blood Pressure 120/60 153/81 H 127/73 Pulse Oximetry 97 100 97 01/26/18 18:00 01/26/18 19:00 01/26/18 19:47 Temperature Pulse Rate 87 85 92 H Respiratory Rate 19 17 22 Blood Pressure 126/66 130/73 Pulse Oximetry 96 98 97 01/26/18 20:00 Temperature 98.3 F Pulse Rate 83 Respiratory Rate 16 Blood Pressure 120/72 Pulse Oximetry 96 Intake & Output 01/26/18 01/26/18 01/27/18 06:59 18:59 06:59 Intake Total 1000 / 1000 4499 / 4499 Output Total 600 / 600 250 / 250 Balance 400 / 400 4249 / 4249 Weight 63.5 kg Intake: IV 1000 / 1000 4499 / 4499 NovoLIN R (IV Infusion) 100 99 / 99 UNIT In NS Inj 99 ML @ 6 UNITS/ HR 6 mls/hr IV.CONT TITRATE PRN Rx#:[id number] NS Inj 1,000 ML @ 250 mls/hr IV 3000 / 3000 .CONT .Q4H [facility] Rx#:[id number] Azactam Inj 2 GM In NS Inj 100 100 / 100 ML @ 200 mls/hr IV.SIG ONCE ONE Rx#:[id number] KCl 20 mEq Premix Inj 20 meq In 100 / 100 100 ml @ 100 mls/hr IV.SIG Q1H PRN Rx#:[id number] Vancomycin Inj 1 gm In 200 ml @ 200 / 200 200 mls/hr IV.SIG ONCE ONE Rx# :[id number] Output: Urine 200 / 200 250 / 250 Stool 100 / 100 Emesis 300 / 300 Other: Date of Last Bowel Movement 01/26/18 01/26/18 01/26/18 # Emeses 2 Results - Lab Results 01/26/18 05:00 01/26/18 17:22 Most recent lab results Calcium 7.0 mg/dL (8.5-10.1) L* 01/26/18 17:22 Assessment and Plan - Assessment (1) Chronic kidney disease, stage 4, severely decreased GFR Code(s): N18.4 - Chronic kidney disease, stage 4 (severe) Status: Acute (2) DKA, type 1 Code(s): E10.10 - Type 1 diabetes mellitus with ketoacidosis without coma Status: Acute - Attending Attestation Patient seen and examined, agree with above. Patient has advance renal disease and approaching end stage. If no improvement, possibly will need HD. <Jazlyn De Anda - Last Filed: 01/26/18 17:16> (2) DKA, type 1 Qualifiers: Diabetes mellitus complication detail: without coma Qualified Code(s): E10.10 - Type 1 diabetes mellitus with ketoacidosis without coma <Bay Gifford - Last Filed: 01/26/18 22:17> (2) DKA, type 1 Qualifiers: Diabetes mellitus complication detail: without coma Qualified Code(s): E10.10 - Type 1 diabetes mellitus with ketoacidosis without coma
[2018-01-26] MEDS: Dextrose 5%/NaCl 0.9% Inj 1,000 ML IV.CONT SCH (17:23)
[2018-01-26 19:09] LABS: Carbon Dioxide 17.1 meq/L (21.0-32.0)
[2018-01-26 19:43] LABS: Total Protein 4.8 g/dL (6.4-8.2)
[2018-01-26 19:53] LABS: Potassium 2.8 meq/L (3.5-5.1)
--- NOTE | 2018-01-26 20:41 | P.CONPOD ---
History of Present Illness Service: Foot and ankle surgery/podiatry Consult date: 01/26/18 Reason for Consult: Left heel ulceration Primary Care Provider: Brittany Lovelace Family Provider: Brittany Lovelace Chief Complaint: nausea/vomiting History of Present Illness: Podiatry consulted for this 37-year-old male with history of type 1 diabetes and end-stage renal disease with a permanent fistula presents for worsening nausea and vomiting. He has a left heel wound which is being treated by wound care clinic. He states he was prescribed antibiotic but he did not feel that or take the medication yet. Patient was found to be in DKA with an elevated glucose to 1100, venous pH 7.1 bicarbonate, K3.7, creatinine greater than 4. Patient is lethargic on exam. Reports nausea and vomiting today denies any fevers or chills. 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 Reports severe neuropathy. PMF - History History Provided By: Patient, Medical Record - Medical History Medical History: Medical History (Last Reviewed 01/26/18 @ 20:37 by Cherie Dennis DPM) AVF (arteriovenous fistula) Anxiety CKD (chronic kidney disease) stage 5, GFR less than 15 ml/min DVT (deep venous thrombosis) Depression Diabetes Diabetic retinopathy Diabetic ulcer of heel Hypertension Neuropathy - Surgical History Surgical History: Surgical History (Last Reviewed 01/26/18 @ 20:37 by Cherie Dennis DPM) Status post right foot surgery - Tobacco History Second Hand Smoke Exposure: Yes Tobacco Use In Past 30 Days: No Smoking Status: Former smoker Tobacco Type: E-Cigarettes - Alcohol History How Often Do You Have a Drink Containing Alcohol: Monthly or less - Substance Use History Substance History: No History of Abuse - Substance Use Type Marijuana Status: Active - Travel History History of Recent Travel: No Recent Travel in the [place] Within the Last 8 Weeks: No Recent Travel Out of the Country Within the Last 8 Weeks: No - Immunization History Tetanus Immunization: <5 Years Hx Influenza Vaccine This Season: No Medications and Allergies Active Medications: Active Medications Acetaminophen (Tylenol) 650 mg PO Q6H PRN PRN Reason: PAIN 1-10 AND/OR FEVER >101F Albuterol (Duoneb Neb (Prn)) 1 ampul NEB Q2HR NEB PRN PRN Reason: WHEEZING Chlorhexidine Gluconate (Chlorhexidine 2% Cloth) 3 pack TOPICAL DAILY@0400 [facility] Stop: 02/01/18 03:59 Chlorhexidine Gluconate (Chlorhexidine 2% Cloth) 3 pack TOPICAL DAILY@0400 PRN PRN Reason: Extra cloth needed Stop: 02/01/18 03:59 Chlorhexidine Gluconate (Chlorhexidine 2% Cloth) 3 pack TOPICAL DAILY@0400 [facility] Stop: 02/01/18 03:59 Chlorhexidine Gluconate (Chlorhexidine 2% Cloth) 3 pack TOPICAL DAILY@0400 PRN PRN Reason: Extra cloth needed Stop: 02/01/18 03:59 Heparin Sodium (Porcine) (Heparin Inj) 5,000 units SQ Q12H [facility] Last Admin: 01/26/18 09:29 Dose: 5,000 units Dextrose/Sodium Chloride (D5w/Normal Saline Inj) 1,000 mls @ 200 mls/hr IV.CONT .Q5H [facility] Last Admin: 01/26/18 17:23 Dose: 200 mls/hr Insulin Human Regular 100 unit (/ Sodium Chloride) 100 mls @ 6 mls/hr IV.CONT TITRATE PRN; Protocol PRN Reason: See protocol Last Admin: 01/26/18 17:22 Dose: 7.5 units/hr, 7.5 mls/hr Potassium Chloride (Kcl 20 Meq Premix Inj) 20 meq in 100 mls @ 50 mls/hr IV.SIG Q2H PRN PRN Reason: for K+ 4.5 to 5 Potassium Chloride (Kcl 20 Meq Premix Inj) 20 meq in 100 mls @ 100 mls/hr IV.SIG Q1H PRN PRN Reason: for K+ 3.5 to 4.4 Last Admin: 01/26/18 14:32 Dose: 100 mls/hr Potassium Chloride (Kcl 20 Meq Premix Inj) 20 meq in 100 mls @ 50 mls/hr IV.SIG Q2H PRN PRN Reason: for K+ 3.5 to 4.4 Potassium Chloride (Kcl 20 Meq Premix Inj) 20 meq in 100 mls @ 50 mls/hr IV.SIG Q2H PRN PRN Reason: for Initial K+ ONLY < 3.5 Potassium Chloride (Kcl 40 Meq Premix Inj) 40 meq in 100 mls @ 100 mls/hr IV.SIG Q1H PRN PRN Reason: for Initial K+ ONLY < 3.5 Potassium Chloride (Kcl 20 Meq Premix Inj) 20 meq in 100 mls @ 50 mls/hr IV.SIG Q2H PRN PRN Reason: for Subsequent K+ < 3.5 Potassium Chloride (Kcl 40 Meq Premix Inj) 40 meq in 100 mls @ 50 mls/hr IV.SIG Q2H PRN PRN Reason: for Subsequent K+ < 3.5 Sodium Chloride (Ns Inj) 1,000 mls @ 250 mls/hr IV.CONT .Q4H [facility] Last Infusion: 01/26/18 17:23 Dose: Infused Sodium Phosphate 15 mmol/ (Sodium Chloride) 105 mls @ 25 mls/hr IV.SIG UNSCH PRN PRN Reason: for Phosphate Level < 1.0 Potassium Chloride (Kcl 20 Meq Premix Inj) 20 meq in 100 mls @ 100 mls/hr IV.SIG Q1H PRN PRN Reason: for K+ 4.5 to 5 Aztreonam 500 mg/ Sodium (Chloride) 100 mls @ 200 mls/hr IV.SIG Q12H [facility] Ondansetron HCl (Zofran Inj) 4 mg IV.PUSH Q6H PRN PRN Reason: NAUSEA Last Admin: 01/26/18 14:32 Dose: 4 mg Sodium Bicarbonate (Sodium Bicarbonate 8.4% Inj) 100 meq IV.PUSH UNSCH PRN PRN Reason: for pH less than 6.9 Sodium Bicarbonate (Sodium Bicarbonate 8.4% Inj) 50 meq IV.PUSH UNSCH PRN PRN Reason: for pH 6.9 to 7.0 Sodium Chloride (Ns Flush) 2 ml IV.FLUSH PRN PRN PRN Reason: FLUSH AFTER USING IV ACCESS Sodium Chloride (Ns Flush) 2 ml IV.FLUSH BID [facility] Last Admin: 01/26/18 08:16 Dose: 2 ml Sodium Chloride (Ns Flush) 2 ml IV.FLUSH PRN PRN PRN Reason: FLUSH AFTER USING IV ACCESS Allergies Allergy/AdvReac Type Severity Reaction Status Date / Time amoxicillin Allergy Severe Rash Verified 01/26/18 07:11 broccoli Allergy Severe ANAPHYLAXIS Verified 01/26/18 07:11 mushroom Allergy Severe ANAPHYLAXIS Verified 01/26/18 07:11 penicillin G Allergy Severe Hives Verified 01/26/18 07:11 *MDRO Multi-Drug Resistant AdvReac Unknown Arrhythmias Uncoded 07/06/18 07:11 Organism Home Medications Medication Instructions Recorded Confirmed Type Multi Vitamin 01/26/18 History Vitamin D3 1,000 units 01/26/18 History apixaban [Eliquis] 5 mg PO BID 01/26/18 01/26/18 History aspirin 81 mg PO DAILY 01/26/18 01/26/18 History insulin pump-infus. set-meter 01/26/18 01/26/18 History loratadine 10 mg PO DAILY 01/26/18 01/26/18 History paricalcitol 1 mcg PO DAILY 01/26/18 01/26/18 History sertraline 100 mg PO DAILY 01/26/18 01/26/18 History sodium bicarbonate 325 mg PO TID 01/26/18 01/26/18 History topiramate 50 mg PO DAILY 01/26/18 01/26/18 History tramadol 50 mg PO Q6H 01/26/18 01/26/18 History Physical Exam Vital signs: Vital Signs 01/26/18 05:00 01/26/18 05:20 01/26/18 06:35 Temperature 98.3 F 99.3 F Pulse Rate 108 H 110 H 102 H Respiratory Rate 20 16 Blood Pressure 114/51 L 114/51 L 152/75 H Pulse Oximetry 98 01/26/18 06:55 01/26/18 07:28 01/26/18 08:30 Temperature 98.6 F Pulse Rate 96 H 96 H 94 H Respiratory Rate 16 18 18 Blood Pressure 149/79 H 141/75 H 142/72 H Pulse Oximetry 97 98 96 01/26/18 09:18 01/26/18 09:19 01/26/18 11:00 Temperature 98.9 F Pulse Rate 89 89 88 Respiratory Rate 18 20 Blood Pressure 148/75 H 133/65 Pulse Oximetry 98 97 01/26/18 12:00 01/26/18 13:00 01/26/18 14:00 Temperature 98.6 F Pulse Rate 90 96 H 93 H Respiratory Rate 19 20 16 Blood Pressure 137/70 129/64 130/65 Pulse Oximetry 98 96 95 01/26/18 15:00 01/26/18 16:00 01/26/18 17:00 Temperature Pulse Rate 91 H 91 H 81 Respiratory Rate 15 18 13 Blood Pressure 120/60 153/81 H 127/73 Pulse Oximetry 97 100 97 01/26/18 18:00 01/26/18 19:00 01/26/18 19:47 Temperature Pulse Rate 87 85 92 H Respiratory Rate 19 17 22 Blood Pressure 126/66 130/73 Pulse Oximetry 96 98 97 Intake & Output 01/26/18 01/26/18 01/27/18 06:59 18:59 06:59 Intake Total 1000 / 1000 4499 / 4499 Output Total 600 / 600 250 / 250 Balance 400 / 400 4249 / 4249 Weight 63.5 kg Intake: IV 1000 / 1000 4499 / 4499 NovoLIN R (IV Infusion) 100 99 / 99 UNIT In NS Inj 99 ML @ 6 UNITS/ HR 6 mls/hr IV.CONT TITRATE PRN Rx#:[id number] NS Inj 1,000 ML @ 250 mls/hr IV 3000 / 3000 .CONT .Q4H [facility] Rx#:[id number] Azactam Inj 2 GM In NS Inj 100 100 / 100 ML @ 200 mls/hr IV.SIG ONCE ONE Rx#:[id number] KCl 20 mEq Premix Inj 20 meq In 100 / 100 100 ml @ 100 mls/hr IV.SIG Q1H PRN Rx#:[id number] Vancomycin Inj 1 gm In 200 ml @ 200 / 200 200 mls/hr IV.SIG ONCE ONE Rx# :[id number] Output: Urine 200 / 200 250 / 250 Stool 100 / 100 Emesis 300 / 300 Other: Date of Last Bowel Movement 01/26/18 01/26/18 # Emeses 2 Narrative: Lower extremity physical exam: Vascular: Dorsalis pedis 2/4, posterior tibial 2/4. Capillary refill time within normal limits to digits X5 bilateral foot. No edema present bilateral lower extremity Neuro: Gross sensation intact to bilateral lower extremity. Pinpoint sensation decreased bilateral lower extremity. No hyperalgesia noted to bilateral lower extremity Dermatology: Normal temperature and turgor to bilateral lower extremity. Left plantar heel ulceration noted with granular base and mildly macerated borders. No surrounding erythema or edema noted. Wound is superficial in nature and measuring approximately 2 x 2.5 cm with approximately 0.1 depth. Musculoskeletal: No tenderness to palpation. Active passive dorsiflexion of digits present bilateral foot. Results - Labs CBC & Chem 7: 01/26/18 05:00 01/26/18 17:22 Laboratory Results - last 24 hr 01/26/18 01/26/18 01/26/18 04:50 05:00 05:00 CBC w Diff Auto diff final WBC 15.1 H RBC 3.59 L Hgb 10.6 L Hct 32.0 L MCV 89.0 MCH 29.6 MCHC 33.3 RDW 15.1 Plt Count 283 MPV 10.7 Neut % (Auto) 92.9 H Lymph % (Auto) 3.9 L [place] % (Auto) 2.4 Eos % (Auto) 0.2 Baso % (Auto) 0.6 Neut # (Auto) 14.0 H Lymph # (Auto) 0.6 L [place] # (Auto) 0.4 Eos # (Auto) 0.0 Baso # (Auto) 0.1 WBC Differential . Puncture Site Patient Temperature VBG pH VBG pCO2 VBG pO2 VBG HCO3 VBG O2 Saturation VBG O2 Content VBG Base Excess VBG Carboxyhemoglobin VBG Methemoglobin Hemoglobin O2 Delivery Device Inspired O2 Critical Value Sodium 126 L Potassium 3.7 Chloride 85 L Carbon Dioxide 8.0 L Anion Gap 33 H BUN 52 H Creatinine 4.70 H Estimated GFR 14 L POC Glucose Random Glucose 1109 H* Lactic Acid 2.3 H Calcium 7.7 L Prot Corrected Calcium Total Bilirubin 0.5 AST 24 ALT 30 Alkaline Phosphatase 133 H Troponin I Less than 0.02 L Total Protein 6.5 Albumin 2.8 L Lipase 545 H Beta-Hydroxybutyric Acd Ur Collection Type Urine Color Urine Clarity Urine pH Ur Specific [place] Urine Protein Urine Glucose (UA) Urine Ketones Urine Occult Blood Urine Nitrate Urine Bilirubin Urine Urobilinogen Ur Leukocyte Esterase Urine RBC Urine WBC Ur Squamous Epith Cells Ur Transition Epith Cell Coarse Granular Casts Micro UA Comment Urine Culture Comments Nasal Screen MRSA (PCR) Blood Type Blood Type Confirm Antibody Screen 01/26/18 01/26/18 01/26/18 05:00 05:00 05:21 CBC w Diff WBC RBC Hgb Hct MCV MCH MCHC RDW Plt Count MPV Neut % (Auto) Lymph % (Auto) [place] % (Auto) Eos % (Auto) Baso % (Auto) Neut # (Auto) Lymph # (Auto) [place] # (Auto) Eos # (Auto) Baso # (Auto) WBC Differential Puncture Site Patient Temperature VBG pH VBG pCO2 VBG pO2 VBG HCO3 VBG O2 Saturation VBG O2 Content VBG Base Excess VBG Carboxyhemoglobin VBG Methemoglobin Hemoglobin O2 Delivery Device Inspired O2 Critical Value Sodium Potassium Chloride Carbon Dioxide Anion Gap BUN Creatinine Estimated GFR POC Glucose Random Glucose Lactic Acid Calcium Prot Corrected Calcium Total Bilirubin AST ALT Alkaline Phosphatase Troponin I Total Protein Albumin Lipase Beta-Hydroxybutyric Acd 10.13 H Ur Collection Type Urine Color Urine Clarity Urine pH Ur Specific [place] Urine Protein Urine Glucose (UA) Urine Ketones Urine Occult Blood Urine Nitrate Urine Bilirubin Urine Urobilinogen Ur Leukocyte Esterase Urine RBC Urine WBC Ur Squamous Epith Cells Ur Transition Epith Cell Coarse Granular Casts Micro UA Comment Urine Culture Comments Nasal Screen MRSA (PCR) Blood Type B Positive Blood Type Confirm B Positive Antibody Screen Negative 01/26/18 01/26/18 01/26/18 06:03 07:30 07:31 CBC w Diff WBC RBC Hgb Hct MCV MCH MCHC RDW Plt Count MPV Neut % (Auto) Lymph % (Auto) [place] % (Auto) Eos % (Auto) Baso % (Auto) Neut # (Auto) Lymph # (Auto) [place] # (Auto) Eos # (Auto) Baso # (Auto) WBC Differential Puncture Site Iv Patient Temperature 98.6 VBG pH 7.16 L* VBG pCO2 18 L* VBG pO2 58 H VBG HCO3 6 L* VBG O2 Saturation 83 H VBG O2 Content 10.6 VBG Base Excess -21.0 L VBG Carboxyhemoglobin 1.8 VBG Methemoglobin 1.4 Hemoglobin 9.0 L O2 Delivery Device Room air Inspired O2 21 Critical Value Yes Sodium Potassium Chloride Carbon Dioxide Anion Gap BUN Creatinine Estimated GFR POC Glucose Greater than 600 H* Random Glucose 862 H* D Lactic Acid Calcium Prot Corrected Calcium Total Bilirubin AST ALT Alkaline Phosphatase Troponin I Total Protein Albumin Lipase Beta-Hydroxybutyric Acd Ur Collection Type Urine Color Urine Clarity Urine pH Ur Specific [place] Urine Protein Urine Glucose (UA) Urine Ketones Urine Occult Blood Urine Nitrate Urine Bilirubin Urine Urobilinogen Ur Leukocyte Esterase Urine RBC Urine WBC Ur Squamous Epith Cells Ur Transition Epith Cell Coarse Granular Casts Micro UA Comment Urine Culture Comments Nasal Screen MRSA (PCR) Blood Type Blood Type Confirm Antibody Screen 01/26/18 01/26/18 01/26/18 08:50 09:00 09:05 CBC w Diff WBC RBC Hgb Hct MCV MCH MCHC RDW Plt Count MPV Neut % (Auto) Lymph % (Auto) [place] % (Auto) Eos % (Auto) Baso % (Auto) Neut # (Auto) Lymph # (Auto) [place] # (Auto) Eos # (Auto) Baso # (Auto) WBC Differential Puncture Site Patient Temperature VBG pH VBG pCO2 VBG pO2 VBG HCO3 VBG O2 Saturation VBG O2 Content VBG Base Excess VBG Carboxyhemoglobin VBG Methemoglobin Hemoglobin O2 Delivery Device Inspired O2 Critical Value Sodium Potassium Chloride Carbon Dioxide Anion Gap BUN Creatinine Estimated GFR POC Glucose Greater than 600 H* Random Glucose 704 H* D Lactic Acid Calcium Prot Corrected Calcium Total Bilirubin AST ALT Alkaline Phosphatase Troponin I Total Protein Albumin Lipase Beta-Hydroxybutyric Acd Ur Collection Type Clean catch Urine Color Yellow Urine Clarity Clear Urine pH 5.5 Ur Specific [place] 1.020 Urine Protein 100 H Urine Glucose (UA) 1000 or greater H Urine Ketones 40 H Urine Occult Blood Moderate H Urine Nitrate Negative Urine Bilirubin Negative Urine Urobilinogen 0.2 Ur Leukocyte Esterase Negative Urine RBC 0-3 Urine WBC 0-5 Ur Squamous Epith Cells 0-5 Ur Transition Epith Cell 1-5 H Coarse Granular Casts 4-10 H Micro UA Comment Culture not ind Urine Culture Comments Culture not ind Nasal Screen MRSA (PCR) Blood Type Blood Type Confirm Antibody Screen 01/26/18 01/26/18 01/26/18 10:46 11:56 12:00 CBC w Diff WBC RBC Hgb Hct MCV MCH MCHC RDW Plt Count MPV Neut % (Auto) Lymph % (Auto) [place] % (Auto) Eos % (Auto) Baso % (Auto) Neut # (Auto) Lymph # (Auto) [place] # (Auto) Eos # (Auto) Baso # (Auto) WBC Differential Puncture Site Patient Temperature VBG pH VBG pCO2 VBG pO2 VBG HCO3 VBG O2 Saturation VBG O2 Content VBG Base Excess VBG Carboxyhemoglobin VBG Methemoglobin Hemoglobin O2 Delivery Device Inspired O2 Critical Value Sodium 136 D Potassium 3.0 L Chloride 103 D Carbon Dioxide 10.7 L Anion Gap 22 H BUN 52 H Creatinine 4.50 H Estimated GFR 15 L POC Glucose 590 H* Random Glucose 543 H* D Lactic Acid Calcium 6.6 L* D Prot Corrected Calcium 7.7 L Total Bilirubin AST ALT Alkaline Phosphatase Troponin I Total Protein 5.0 L D Albumin Lipase Beta-Hydroxybutyric Acd Ur Collection Type Urine Color Urine Clarity Urine pH Ur Specific [place] Urine Protein Urine Glucose (UA) Urine Ketones Urine Occult Blood Urine Nitrate Urine Bilirubin Urine Urobilinogen Ur Leukocyte Esterase Urine RBC Urine WBC Ur Squamous Epith Cells Ur Transition Epith Cell Coarse Granular Casts Micro UA Comment Urine Culture Comments Nasal Screen MRSA (PCR) Mrsa not detected Blood Type Blood Type Confirm Antibody Screen 01/26/18 01/26/18 01/26/18 12:23 13:15 14:19 CBC w Diff WBC RBC Hgb Hct MCV MCH MCHC RDW Plt Count MPV Neut % (Auto) Lymph % (Auto) [place] % (Auto) Eos % (Auto) Baso % (Auto) Neut # (Auto) Lymph # (Auto) [place] # (Auto) Eos # (Auto) Baso # (Auto) WBC Differential Puncture Site Patient Temperature VBG pH VBG pCO2 VBG pO2 VBG HCO3 VBG O2 Saturation VBG O2 Content VBG Base Excess VBG Carboxyhemoglobin VBG Methemoglobin Hemoglobin O2 Delivery Device Inspired O2 Critical Value Sodium Potassium Chloride Carbon Dioxide Anion Gap BUN Creatinine Estimated GFR POC Glucose 530 H* 495 H* 402 H Random Glucose Lactic Acid Calcium Prot Corrected Calcium Total Bilirubin AST ALT Alkaline Phosphatase Troponin I Total Protein Albumin Lipase Beta-Hydroxybutyric Acd Ur Collection Type Urine Color Urine Clarity Urine pH Ur Specific [place] Urine Protein Urine Glucose (UA) Urine Ketones Urine Occult Blood Urine Nitrate Urine Bilirubin Urine Urobilinogen Ur Leukocyte Esterase Urine RBC Urine WBC Ur Squamous Epith Cells Ur Transition Epith Cell Coarse Granular Casts Micro UA Comment Urine Culture Comments Nasal Screen MRSA (PCR) Blood Type Blood Type Confirm Antibody Screen 01/26/18 01/26/18 01/26/18 15:26 16:24 17:13 CBC w Diff WBC RBC Hgb Hct MCV MCH MCHC RDW Plt Count MPV Neut % (Auto) Lymph % (Auto) [place] % (Auto) Eos % (Auto) Baso % (Auto) Neut # (Auto) Lymph # (Auto) [place] # (Auto) Eos # (Auto) Baso # (Auto) WBC Differential Puncture Site Patient Temperature VBG pH VBG pCO2 VBG pO2 VBG HCO3 VBG O2 Saturation VBG O2 Content VBG Base Excess VBG Carboxyhemoglobin VBG Methemoglobin Hemoglobin O2 Delivery Device Inspired O2 Critical Value Sodium Potassium Chloride Carbon Dioxide Anion Gap BUN Creatinine Estimated GFR POC Glucose 348 H 254 H 216 H Random Glucose Lactic Acid Calcium Prot Corrected Calcium Total Bilirubin AST ALT Alkaline Phosphatase Troponin I Total Protein Albumin Lipase Beta-Hydroxybutyric Acd Ur Collection Type Urine Color Urine Clarity Urine pH Ur Specific [place] Urine Protein Urine Glucose (UA) Urine Ketones Urine Occult Blood Urine Nitrate Urine Bilirubin Urine Urobilinogen Ur Leukocyte Esterase Urine RBC Urine WBC Ur Squamous Epith Cells Ur Transition Epith Cell Coarse Granular Casts Micro UA Comment Urine Culture Comments Nasal Screen MRSA (PCR) Blood Type Blood Type Confirm Antibody Screen 01/26/18 01/26/18 01/26/18 17:22 18:02 19:26 CBC w Diff WBC RBC Hgb Hct MCV MCH MCHC RDW Plt Count MPV Neut % (Auto) Lymph % (Auto) [place] % (Auto) Eos % (Auto) Baso % (Auto) Neut # (Auto) Lymph # (Auto) [place] # (Auto) Eos # (Auto) Baso # (Auto) WBC Differential Puncture Site Patient Temperature VBG pH VBG pCO2 VBG pO2 VBG HCO3 VBG O2 Saturation VBG O2 Content VBG Base Excess VBG Carboxyhemoglobin VBG Methemoglobin Hemoglobin O2 Delivery Device Inspired O2 Critical Value Sodium 143 Potassium 2.8 L* Chloride 112 H D Carbon Dioxide 17.1 L Anion Gap 14 BUN 51 H Creatinine 4.58 H Estimated GFR 15 L POC Glucose 171 H 123 H Random Glucose 193 H D Lactic Acid Calcium 7.0 L* Prot Corrected Calcium 8.2 L Total Bilirubin AST ALT Alkaline Phosphatase Troponin I Total Protein 4.8 L Albumin Lipase Beta-Hydroxybutyric Acd Ur Collection Type Urine Color Urine Clarity Urine pH Ur Specific [place] Urine Protein Urine Glucose (UA) Urine Ketones Urine Occult Blood Urine Nitrate Urine Bilirubin Urine Urobilinogen Ur Leukocyte Esterase Urine RBC Urine WBC Ur Squamous Epith Cells Ur Transition Epith Cell Coarse Granular Casts Micro UA Comment Urine Culture Comments Nasal Screen MRSA (PCR) Blood Type Blood Type Confirm Antibody Screen 01/26/18 20:04 CBC w Diff WBC RBC Hgb Hct MCV MCH MCHC RDW Plt Count MPV Neut % (Auto) Lymph % (Auto) [place] % (Auto) Eos % (Auto) Baso % (Auto) Neut # (Auto) Lymph # (Auto) [place] # (Auto) Eos # (Auto) Baso # (Auto) WBC Differential Puncture Site Patient Temperature VBG pH VBG pCO2 VBG pO2 VBG HCO3 VBG O2 Saturation VBG O2 Content VBG Base Excess VBG Carboxyhemoglobin VBG Methemoglobin Hemoglobin O2 Delivery Device Inspired O2 Critical Value Sodium Potassium Chloride Carbon Dioxide Anion Gap BUN Creatinine Estimated GFR POC Glucose 117 H Random Glucose Lactic Acid Calcium Prot Corrected Calcium Total Bilirubin AST ALT Alkaline Phosphatase Troponin I Total Protein Albumin Lipase Beta-Hydroxybutyric Acd Ur Collection Type Urine Color Urine Clarity Urine pH Ur Specific [place] Urine Protein Urine Glucose (UA) Urine Ketones Urine Occult Blood Urine Nitrate Urine Bilirubin Urine Urobilinogen Ur Leukocyte Esterase Urine RBC Urine WBC Ur Squamous Epith Cells Ur Transition Epith Cell Coarse Granular Casts Micro UA Comment Urine Culture Comments Nasal Screen MRSA (PCR) Blood Type Blood Type Confirm Antibody Screen Microbiology 01/26/18 05:30 Wound - Heel Gram Stain - Final - Imaging Impressions Chest X-Ray 01/26/18 04:38 CONCLUSION: No evidence of acute cardiopulmonary disease. Assessment and Plan - Plan 37-year-old male with left plantar heel ulcer Patient examined evaluated with all questions answered X-ray left foot rule out any bone involvement with ulceration Multi-Podus offloading heel boots ordered for left lower extremity Wound care nurse consulted for collagen application to left plantar wound No acute infection noted no need for surgical debridement No planned surgical intervention Patient to continue to follow-up with wound care care clinic upon discharge
[2018-01-26] MEDS: Aztreonam Inj 500 MG in Sodium Chlor 0.9% Inj 100 ML IV.SIG SCH (21:08)
[2018-01-26] MEDS ORDERED: Insulin Detemir Inj 1,000 UNIT/10 ML Vial SQ SCH (22:00)
--- NOTE | 2018-01-26 22:17 | XR ---
EXAM DATE: 01/26/2018 10:06 PM EDT AGE/SEX: 37 years / Male INDICATIONS: Left heel infection. Pain. CLINICAL DATA: This is the patient's subsequent encounter. Patient reports that signs and symptoms h ave been present for 3 days and indicates a pain score of 8/10. MEDICAL/SURGICAL HISTORY: Renal failure, acute. None. COMPARISON: [facility], FOOT LEFT COMPLETE ([id number]), 12/02/2017. . FINDINGS: Bony structures are intact and in normal alignment. There is chronic deformity involving the posterio r aspect of the calcaneus which is unchanged. Osseous density is normal. Soft tissues are unremarkab le. No radiopaque foreign bodies seen. CONCLUSION: 1. No acute fracture or dislocation. 2. No radiopaque foreign body or significant soft tissue swelling. Electronically signed by: David Lam MD 01/26/2018 10:16 PM EDT
[2018-01-27] MEDS: Potassium Chlor 20 mEq Premix 20 MEQ/100 ML PIGGYBACK IV.SIG PRN ×2 (01:35→04:10)
[2018-01-27] MEDS: Sod Chloride 0.9% Inj 1,000 ML IV.CONT SCH ×3 (02:06→10:59)
[2018-01-27] MEDS: Chlorhexidine Gluconate 2% 1 Pack (2 Cloths) TOPICAL SCH (03:03)
[2018-01-27] MEDS ORDERED: Chlorhexidine Gluconate 2% 1 Pack (2 Cloths) TOPICAL PRN ×2 (04:00)
[2018-01-27] MEDS ORDERED: Chlorhexidine Gluconate 2% 1 Pack (2 Cloths) TOPICAL SCH (04:00)
[2018-01-27] MEDS ORDERED: Insulin Regular (For Infusion) 100 UNIT in Sodium Chlor 0.9% Inj 99 ML IV.CONT PRN (04:50)
[2018-01-27 06:29] LABS: Beta Hydroxybutyric Acid 3.94 mmol/L (0.00-0.39); Calcium 7.5 mg/dL (8.5-10.1); Carbon Dioxide 10.8 meq/L (21.0-32.0); Magnesium 1.9 mg/dL (1.5-2.5); Phosphorus 4.9 mg/dL (2.5-4.9); Potassium 3.5 meq/L (3.5-5.1)
[2018-01-27] MEDS: Heparin - SQ 10,000 UNITS/ML Vial SQ SCH ×2 (08:05→21:55)
[2018-01-27] MEDS: Aztreonam Inj 500 MG in Sodium Chlor 0.9% Inj 100 ML IV.SIG SCH ×2 (08:06→18:38)
[2018-01-27] MEDS: Dextrose 5%/NaCl 0.9% Inj 1,000 ML IV.CONT SCH (08:08)
[2018-01-27] MEDS ORDERED: Morphine Inj 4 MG/ML Vial IV.PUSH ONE (09:45)
[2018-01-27] MEDS: Insulin NovoLOG Aspart Correctional Sugar Inj SQ SCH ×3 (10:53→22:30)
--- NOTE | 2018-01-27 12:19 | P.PNNP ---
Subjective Interval history: no acute complaints Physical Exam Vital signs: Vital Signs 01/26/18 13:00 01/26/18 14:00 01/26/18 15:00 Temperature Pulse Rate 96 H 93 H 91 H Respiratory Rate 20 16 15 Blood Pressure 129/64 130/65 120/60 Pulse Oximetry 96 95 97 01/26/18 16:00 01/26/18 17:00 01/26/18 18:00 Temperature Pulse Rate 91 H 81 87 Respiratory Rate 18 13 19 Blood Pressure 153/81 H 127/73 126/66 Pulse Oximetry 100 97 96 01/26/18 19:00 01/26/18 19:47 01/26/18 20:00 Temperature 98.3 F Pulse Rate 85 92 H 83 Respiratory Rate 17 22 16 Blood Pressure 130/73 120/72 Pulse Oximetry 98 97 96 01/27/18 00:00 01/27/18 02:00 01/27/18 04:00 Temperature 98.6 F 99.0 F Pulse Rate 83 85 87 Respiratory Rate 16 16 Blood Pressure 114/64 148/77 H Pulse Oximetry 96 96 01/27/18 06:00 01/27/18 08:00 01/27/18 09:00 Temperature Pulse Rate 91 H 74 83 Respiratory Rate Blood Pressure Pulse Oximetry 01/27/18 09:37 01/27/18 10:00 01/27/18 10:54 Temperature 98.6 F Pulse Rate 97 H 83 Respiratory Rate 18 18 Blood Pressure 125/71 Pulse Oximetry 97 Intake & Output 01/26/18 01/27/18 01/27/18 18:59 06:59 18:59 Intake Total 4499 / 4499 1300 / 1300 1400 / 1400 Output Total 250 / 250 800 / 800 Balance 4249 / 4249 500 / 500 1400 / 1400 Intake: IV 4499 / 4499 1300 / 1300 1400 / 1400 D5W/Normal Saline Inj 1,000 ML 1000 / 1000 @ 200 mls/hr IV.CONT .Q5H JORDAN Rx#:[id number] NovoLIN R (IV Infusion) 100 99 / 99 UNIT In NS Inj 99 ML @ 6 UNITS/ HR 6 mls/hr IV.CONT TITRATE PRN Rx#:[id number] NS Inj 1,000 ML @ 250 mls/hr IV 3000 / 3000 1000 / 1000 .CONT .Q4H JORDAN Rx#:[id number] Azactam Inj 500 MG In NS Inj 100 / 100 100 / 100 100 ML @ 200 mls/hr IV.SIG Q12H JORDAN Rx#:[id number] Azactam Inj 2 GM In NS Inj 100 100 / 100 ML @ 200 mls/hr IV.SIG ONCE ONE Rx#:[id number] KCl 20 mEq Premix Inj 20 meq In 100 / 100 200 / 200 300 / 300 100 ml @ 50 mls/hr IV.SIG Q2H PRN Rx#:[id number] Vancomycin Inj 1 gm In 200 ml @ 200 / 200 200 mls/hr IV.SIG ONCE ONE Rx# :[id number] Output: Urine 250 / 250 800 / 800 Other: Date of Last Bowel Movement 01/26/18 01/27/18 01/27/18 # Bowel Movements 3 - Constitutional no acute distress - Routine HEENT Exam Head: Present: normocephalic Eye: Present: EOMI ENT: Present: mucous membranes moist - Routine Neck Exam Present: supple - Routine Respiratory Exam Present: CTA bilaterally - Routine Cardiovascular Exam Present: RRR - Routine Abdominal Exam Present: soft - Routine Extremities Exam Present: AV fistula - Routine Skin Exam Present: intact - Routine Neurological Exam Present: alert, oriented X3 - Detailed Neurological Exam: Coma Scale Eye Opening: Spontaneous Assessment and Plan - Assessment (1) Chronic kidney disease, stage 4, severely decreased GFR Code(s): N18.4 - Chronic kidney disease, stage 4 (severe) Status: Acute (2) DKA, type 1 Code(s): E10.10 - Type 1 diabetes mellitus with ketoacidosis without coma Status: Acute Qualifiers: Diabetes mellitus complication detail: without coma Qualified Code(s): E10.10 - Type 1 diabetes mellitus with ketoacidosis without coma - Plan Acute kidney injury Acute kidney injury on CKD Creatinine stable at 4.5 Has underlying chronic kidney disease is likely due to diabetic nephropathy. He is followed by [facility] [employer] [facility] Dr. Garsia in [place]. Suspect is his baseline 3.4-3.7. He has a AVF in right lower arm with good thrill and bruit. Per patient not ready for use, however not followed for maturation. (may evaluate for maturity as an outpatient - excellent thrill, AVF made in [address] Finn. May consider cannulation attempt this admission if necessary.) Creatinine at 4.50 down from 4.70 HCO3 at 10.8 from 17 yesterday K+ 3.5 Urinary output improved to 1L/24 hours Continue IVFs and DKA protocol Will add HCO3 to fluids for acidosis. Hypokalemia: continue replacement Will monitor urinary output and BMP Maintain strict I+O and avoid nephrotoxic agents. May need hemodialysis, but no urgent need for hemodialysis now. DKA continue DKA protocol
[2018-01-27] MEDS ORDERED: Sodium Bicarbonate 8.4% Inj 150 MEQ in Dextrose 5%/NaCl 0.9% Inj 850 ML IV.SIG SCH (13:00)
--- NOTE | 2018-01-27 13:17 | P.PNCC ---
Subjective Subjective Remarks/Hospital Course: 01/26: 37yM with history of type I diabetes and ESRD with permanent fistula presents for worsening nausea/vomiting. of note, he has a wound on his foot that has been seen by wound clinic and was prescribed an antibiotic but has not filled the prescription or taken the medication yet. in the ER, he is found to be in DKA with an elevated glucose to 1100, venous pH 7.1, bicarb 8, k 3.7, Cr > 4. endoreses n/v/abdominal pain, denies chest pain, sob. denies fever, chills. visibly in distress on exam. remainder of ROS negative.. of note, patient has an insulin pump which is functioning properly and is currently running. 01/27: Resting comfortably in bed. Remains on insulin drip due to persistent increased anion gap and positive ketones. Objective Vital Signs / I&O: Vital Signs 01/26/18 14:00 01/26/18 15:00 01/26/18 16:00 Temperature Pulse Rate 93 H 91 H 91 H Respiratory Rate 16 15 18 Blood Pressure 130/65 120/60 153/81 H Pulse Oximetry 95 97 100 01/26/18 17:00 01/26/18 18:00 01/26/18 19:00 Temperature Pulse Rate 81 87 85 Respiratory Rate 13 19 17 Blood Pressure 127/73 126/66 130/73 Pulse Oximetry 97 96 98 01/26/18 19:47 01/26/18 20:00 01/26/18 21:00 Temperature 98.3 F Pulse Rate 92 H 93 H 83 Respiratory Rate 22 27 H 15 Blood Pressure 120/72 109/62 Pulse Oximetry 97 98 96 01/26/18 22:00 01/26/18 23:00 01/27/18 00:00 Temperature 98.6 F Pulse Rate 85 91 H 89 Respiratory Rate 16 16 17 Blood Pressure 117/70 117/64 114/64 Pulse Oximetry 97 97 97 01/27/18 01:00 01/27/18 02:00 01/27/18 03:00 Temperature Pulse Rate 90 92 H 89 Respiratory Rate 15 21 15 Blood Pressure 108/57 L 106/57 L 120/66 Pulse Oximetry 97 97 97 01/27/18 04:00 01/27/18 05:00 01/27/18 06:00 Temperature 99.0 F Pulse Rate 90 92 H 87 Respiratory Rate 17 19 13 Blood Pressure 148/77 H 126/70 Pulse Oximetry 98 97 98 01/27/18 07:00 01/27/18 08:00 01/27/18 09:00 Temperature Pulse Rate 86 82 83 Respiratory Rate 14 13 11 L Blood Pressure 132/74 130/72 125/71 Pulse Oximetry 97 97 97 01/27/18 09:37 01/27/18 10:00 01/27/18 10:54 Temperature 98.6 F Pulse Rate 97 H 81 Respiratory Rate 18 16 18 Blood Pressure 125/71 134/76 Pulse Oximetry 97 99 01/27/18 11:00 01/27/18 12:00 01/27/18 13:00 Temperature 98.1 F 98.1 F Pulse Rate 76 80 77 Respiratory Rate 14 15 14 Blood Pressure 136/81 125/70 134/74 Pulse Oximetry 100 98 98 Intake & Output 01/26/18 01/27/18 01/27/18 18:59 06:59 18:59 Intake Total 4499 / 4499 1300 / 1300 1400 / 1400 Output Total 250 / 250 800 / 800 Balance 4249 / 4249 500 / 500 1400 / 1400 Intake: IV 4499 / 4499 1300 / 1300 1400 / 1400 D5W/Normal Saline Inj 1,000 ML 1000 / 1000 @ 200 mls/hr IV.CONT .Q5H JORDAN Rx#:[id number] NovoLIN R (IV Infusion) 100 99 / 99 UNIT In NS Inj 99 ML @ 6 UNITS/ HR 6 mls/hr IV.CONT TITRATE PRN Rx#:[id number] NS Inj 1,000 ML @ 250 mls/hr IV 3000 / 3000 1000 / 1000 .CONT .Q4H JORDAN Rx#:[id number] Azactam Inj 500 MG In NS Inj 100 / 100 100 / 100 100 ML @ 200 mls/hr IV.SIG Q12H J[facility] Rx#:[id number] Azactam Inj 2 GM In NS Inj 100 100 / 100 ML @ 200 mls/hr IV.SIG ONCE ONE Rx#:[id number] KCl 20 mEq Premix Inj 20 meq In 100 / 100 200 / 200 300 / 300 100 ml @ 50 mls/hr IV.SIG Q2H PRN Rx#:[id number] Vancomycin Inj 1 gm In 200 ml @ 200 / 200 200 mls/hr IV.SIG ONCE ONE Rx# :[id number] Output: Urine 250 / 250 800 / 800 Other: Date of Last Bowel Movement 01/26/18 01/27/18 01/27/18 # Bowel Movements 3 Result Diagrams: 01/26/18 05:00 01/27/18 05:02 Objective Remarks: gen: young male who appears older than stated age, lying in bed, not in any acute distress heent: nc. at. perrl. mucous membranes moist. neck: trachea midline. no jvd. chest: Good air entry bilaterally, no wheezing or crackles. cv: S1-S2 regular. abd: soft, diffusely tender to palpation generally, no guarding or rebound. nondistended. extr: distal pulses 2+. no edema. left lower extremity wrapped in kerlix dressing. neuro: RASS 0. Grossly nonfocal Assessment and Plan - Assessment and Plan Plan: Assessment: 37yM with ESRD and DKA, likely secondary to foot cellulitis. critically ill with severe metabolic acidosis- will likely need urgent hemodialysis to assist in clearing his acid load. Active problems: Severe anion-gap metabolic acidosis Severe Diabetic Ketoacidosis Severe hyperglycemia Foot cellulitis Acute kidney injury superimposed on stage V CKD Hypokalemia Pseudohyponatremia Lactic acidosis history of prior DVT Plan: admit to ICU DKA protocol including ivf, iv insulin infusion, frequent glucose checks, serial BMPs Nephrology consult: Strict intake output, monitor and replete electrolytes, follow BUN/creatinine. May need hemodialysis in the near future. aggressive K replacement Vancomycin with pharmacy dosing aztreonam 2gm load, 500mg iv q12h (renally dosed) strict i/o's Advance diet add dextrose to ivf once serum glucose falls below 200. restart home eliquis for h/o DVT protonix SCDs Consult and transfer to hospitalist service for further medical management.
[2018-01-27 14:49] LABS: Baso # (Auto) 0.1 th/mm3 (0.0-0.2); Baso % (Auto) 0.6 % (0.0-2.0); Eos # (Auto) 0.1 th/mm3 (0.0-0.4); Eos % (Auto) 0.7 % (0.0-4.0); Hemoglobin 9.5 gm/dL (13.0-17.0); Lymph # (Auto) 1.4 th/mm3 (1.0-4.8); Lymph % (Auto) 11.5 % (9.0-44.0); Mean Corpuscular HGB Conc 32.9 % (32.0-36.0); Mean Corpuscular Hemoglobin 28.3 pg (27.0-34.0); Mean Corpuscular Volume 86.2 fL (80.0-100.0); Mean Platelet Volume 8.6 fL (7.0-11.0); Mono # (Auto) 0.5 th/mm3 (0.0-0.9); Neut # (Auto) 9.8 th/mm3 (1.8-7.7); Neut % (Auto) 83.2 % (16.0-70.0); Platelet Count 253 th/mm3 (150-450); Red Blood Count 3.36 mil/mm3 (4.50-5.90); Red Cell Distribution Width 15.7 % (11.6-17.2); White Blood Count 11.8 th/mm3 (4.0-11.0)
[2018-01-27 15:25] LABS: Calcium 7.3 mg/dL (8.5-10.1); Carbon Dioxide 14.7 meq/L (21.0-32.0); Magnesium 1.8 mg/dL (1.5-2.5); Potassium 3.5 meq/L (3.5-5.1)
[2018-01-27] MEDS ORDERED: Insulin Detemir Inj 1,000 UNIT/10 ML Vial SQ ONE (16:45)
[2018-01-27] MEDS: Sodium Bicarbonate 8.4% Inj 150 MEQ in Water for Inj, Sterile 850 ML IV.SIG SCH ×2 (18:39→23:37)
[2018-01-27 19:35] LABS: Beta Hydroxybutyric Acid 0.18 mmol/L (0.00-0.39); Calcium 7.3 mg/dL (8.5-10.1); Carbon Dioxide 17.7 meq/L (21.0-32.0); Magnesium 1.9 mg/dL (1.5-2.5); Phosphorus 3.5 mg/dL (2.5-4.9); Potassium 3.3 meq/L (3.5-5.1)
[2018-01-27 19:57] LABS: Total Protein 4.8 g/dL (6.4-8.2)
[2018-01-28] MEDS: Aztreonam Inj 500 MG in Sodium Chlor 0.9% Inj 100 ML IV.SIG SCH ×2 (06:44→18:31)
[2018-01-28] MEDS: Insulin NovoLOG Aspart Correctional Sugar Inj SQ SCH ×3 (07:29→16:19)
[2018-01-28] MEDS: Heparin - SQ 10,000 UNITS/ML Vial SQ SCH (08:18)
[2018-01-28] MEDS ORDERED: Insulin Detemir Inj 1,000 UNIT/10 ML Vial SQ SCH (09:00)
--- NOTE | 2018-01-28 09:12 | P.PNNP ---
Subjective Interval history: hypoglycemia overnight, no acute complaints. Physical Exam Vital signs: Vital Signs 01/27/18 09:37 01/27/18 10:00 01/27/18 10:54 Temperature 98.6 F Pulse Rate 97 H 81 Respiratory Rate 18 16 18 Blood Pressure 125/71 134/76 Pulse Oximetry 97 99 01/27/18 11:00 01/27/18 12:00 01/27/18 13:00 Temperature 98.1 F 98.1 F Pulse Rate 76 80 77 Respiratory Rate 14 15 14 Blood Pressure 136/81 125/70 134/74 Pulse Oximetry 100 98 98 01/27/18 14:00 01/27/18 15:00 01/27/18 16:00 Temperature 98.1 F Pulse Rate 81 84 80 Respiratory Rate 14 15 24 Blood Pressure 149/90 H 145/84 H 148/106 H Pulse Oximetry 100 100 99 01/27/18 17:00 01/27/18 18:00 01/27/18 19:00 Temperature Pulse Rate 73 60 75 Respiratory Rate 16 16 15 Blood Pressure 180/97 H 162/98 H 156/88 H Pulse Oximetry 100 97 100 01/27/18 20:00 01/27/18 21:00 01/27/18 22:00 Temperature 97.8 F 98.4 F 98.4 F Pulse Rate 88 74 78 Respiratory Rate 20 19 15 Blood Pressure 151/94 H 178/94 H 173/102 H Pulse Oximetry 100 99 100 01/27/18 22:02 01/27/18 23:00 01/27/18 23:24 Temperature 98.4 F Pulse Rate 77 88 60 Respiratory Rate 19 22 20 Blood Pressure 169/99 H 161/104 H 100/58 L Pulse Oximetry 100 98 96 01/28/18 00:00 01/28/18 01:00 01/28/18 02:00 Temperature 97.4 F L Pulse Rate 74 75 80 Respiratory Rate 17 20 21 Blood Pressure 167/97 H 164/92 H 194/110 H Pulse Oximetry 99 98 100 01/28/18 03:00 01/28/18 04:00 01/28/18 05:00 Temperature Pulse Rate 72 73 68 Respiratory Rate 18 19 14 Blood Pressure 170/99 H 166/102 H Pulse Oximetry 98 95 98 01/28/18 05:05 01/28/18 06:00 01/28/18 07:00 Temperature Pulse Rate 74 80 72 Respiratory Rate 20 20 13 Blood Pressure 176/96 H 196/94 H 171/100 H Pulse Oximetry 98 97 95 01/28/18 08:00 Temperature Pulse Rate 77 Respiratory Rate 16 Blood Pressure 200/97 H Pulse Oximetry 100 Intake & Output 01/27/18 01/28/18 01/28/18 18:59 06:59 18:59 Intake Total 5189 / 5189 6446 / 6446 100 / 100 Output Total 1999 / 1999 Balance 5189 / 5189 4446 / 4446 100 / 100 Intake: IV 3439 / 3439 1100 / 1100 100 / 100 D5W/Normal Saline Inj 1,000 ML 1000 / 1000 @ 200 mls/hr IV.CONT .Q5H [facility] Rx#:[id number] NovoLIN R (IV Infusion) 100 39 / 39 UNIT In NS Inj 99 ML @ 1 UNITS/ HR 1 mls/hr IV.CONT TITRATE PRN Rx#:[id number] NS Inj 1,000 ML @ 250 mls/hr IV 1000 / 1000 .CONT .Q4H JORDAN Rx#:[id number] Azactam Inj 500 MG In NS Inj 100 / 100 100 / 100 100 / 100 100 ML @ 200 mls/hr IV.SIG Q12H JORDAN Rx#:[id number] KCl 20 mEq Premix Inj 20 meq In 300 / 300 100 ml @ 50 mls/hr IV.SIG Q2H PRN Rx#:[id number] Sodium Bicarbonate 8.4% Inj 150 1000 / 1000 MEQ In D5W/Normal Saline Inj 850 ML @ 200 mls/hr IV.SIG .Q5H JORDAN Rx#:[id number] Sodium Bicarbonate 8.4% Inj 150 1000 / 1000 MEQ In Sterile Water for Inj 850 ML @ 200 mls/hr IV.SIG .Q5H JORDAN Rx#:[id number] Oral 1750 / 1750 700 / 700 Other 4646 / 4646 Output: Urine 1600 / 1600 Stool 100 / 100 Emesis 300 / 300 Other: Other Intake Source Saline Solution # Voids 8 4 Date of Last Bowel Movement 01/27/18 01/27/18 01/27/18 # Bowel Movements 8 8 # Emeses 2 - Constitutional no acute distress - Routine HEENT Exam Head: Present: normocephalic Eye: Present: EOMI ENT: Present: mucous membranes moist - Routine Neck Exam Present: supple - Routine Respiratory Exam Present: CTA bilaterally - Routine Cardiovascular Exam Present: RRR - Routine Abdominal Exam Present: soft - Routine Extremities Exam Present: AV fistula - Routine Skin Exam Present: intact - Routine Neurological Exam Present: alert, oriented X3 - Detailed Neurological Exam: Coma Scale Eye Opening: Spontaneous - Routine Psychiatric Exam Present: normal affect Assessment and Plan - Assessment (1) Chronic kidney disease, stage 4, severely decreased GFR Code(s): N18.4 - Chronic kidney disease, stage 4 (severe) Status: Acute (2) DKA, type 1 Code(s): E10.10 - Type 1 diabetes mellitus with ketoacidosis without coma Status: Acute Qualifiers: Diabetes mellitus complication detail: without coma Qualified Code(s): E10.10 - Type 1 diabetes mellitus with ketoacidosis without coma - Plan Acute kidney injury Acute kidney injury on CKD Creatinine stable at 4.5 -> 4.0 last night Has underlying chronic kidney disease is likely due to diabetic nephropathy. He is followed by [facility] Garsia in [place]. Suspect is his baseline 3.4-3.7. He has a AVF in right lower arm with good thrill and bruit. Per patient not ready for use, however not followed for maturation. (may evaluate for maturity as an outpatient - excellent thrill, AVF made in [address] Finn. May consider cannulation attempt this admission if necessary.) Creatinine continues to improve HCO3 added to IVFs: HC03 10.8 -> 14 --> 17 K+ 3.3: Will replace. Urinary output improved to 1.6 L/24 hours Continue IVFs and DKA protocol Hypokalemia: continue replacement Will monitor urinary output and BMP Maintain strict I+O and avoid nephrotoxic agents. No need for dialysis at this time DKA continue DKA protocol. Hypoglycemia overnight
[2018-01-28] MEDS: Potassium Chlor 20 mEq Premix 20 MEQ/100 ML PIGGYBACK IV.SIG SCH ×2 (09:45→11:46)
[2018-01-28] MEDS: Sodium Bicarbonate 8.4% Inj 150 MEQ in Water for Inj, Sterile 850 ML IV.SIG SCH ×3 (10:17→22:55)
[2018-01-28 10:51] LABS: Calcium 7.5 mg/dL (8.5-10.1); Carbon Dioxide 22.1 meq/L (21.0-32.0); Magnesium 1.7 mg/dL (1.5-2.5); Phosphorus 3.3 mg/dL (2.5-4.9)
[2018-01-28 11:05] LABS: Potassium 2.6 meq/L (3.5-5.1)
[2018-01-28 12:32] LABS: Hematocrit 26.9 % (39.0-51.0); Hemoglobin 9.1 gm/dL (13.0-17.0); Mean Corpuscular Hemoglobin 28.7 pg (27.0-34.0); Mean Corpuscular Volume 84.5 fL (80.0-100.0); Mean Platelet Volume 8.4 fL (7.0-11.0); Platelet Count 203 th/mm3 (150-450); Red Blood Count 3.18 mil/mm3 (4.50-5.90); Red Cell Distribution Width 15.1 % (11.6-17.2); White Blood Count 5.6 th/mm3 (4.0-11.0)
[2018-01-28 13:16] LABS: Albumin 1.9 g/dL (3.4-5.0); Calcium 6.8 mg/dL (8.5-10.1); Carbon Dioxide 28.4 meq/L (21.0-32.0); Potassium 3.1 meq/L (3.5-5.1); Total Protein 4.6 g/dL (6.4-8.2)
--- NOTE | 2018-01-28 14:06 | P.DIET ---
Nutritional Evaluation Type of nutrition evaluation: initial Nutrition screening: Weight Loss > 10 lbs Subjective Subjective Comments: Pt reports an unintentional 20 lb wt loss, reports a good appetite, some difficulty with swallowing. Objective - Diagnosis Nausea/Vomiting - Objective % IBW: 88 Body Weight Used for Calculations: Actual Energy Needs - Lower Range (kCal/kg): 28 Energy Needs - Upper Range (kCal/kg): 33 Lower Limit kCal/kg (kCals): 1,778 Upper Limit kCal/kg (kCals): 2,096 Lower Limit Protein Factor (Grams per Kg): 1.1 Upper Limit Protein Factor (Grams per Kg): 1.5 Lower Protein Needs (Protein): 70 Upper Protein Needs (Protein): 95 Fluid Factor (ml/kg): 33 Estimated Fluid Needs (ml): 2,096 Dietitian Reviewed in Medical Record: Current diet, Curent medications, Intake & Output, Labs, Medical history, Wound/DTI Diet Order: 1800 ADA 2gmNA Wound Care Note: WOC consult pending Objective Comments: Nutritional needs based on 63.5kg PMH: AVF, CKD Stage IV, Depression, T1DM, Retinopathy, Neuropathy, Diabetic Ulcer of the heel, DVT, HTN Labs include: K+ 3.1, Cr 3.40, est GFR 21, Glu 294 UOP: 1600mls, 01/27 8 BM's, 2 Emeses Assessment Assessment: Pt at nutritional risk r/t dx. Admitted in DKA. Reports recent wt loss, appetite good. Pt with AV Fistula in prep for HD. Per nephrology note, Cr trending down to pt's baseline, no need for HD at this time. Per neurology physician consult: pt with L plantar heel ulcer, no bone involvement, no infection, no surgical intervention necessary. Pt's nutritional needs as assessed above. Adequate po intake has not yet been established. Will provide Glucerna tid, each bottle provides 220 kcals and 10 gms protein. Will monitor clinical course. Recommendations: 1800 ADA, 2gmNa diet Will provide Glucerna tid Dietitian following Dietitian to Monitor: Lab values, Glucose level, Supplement acceptance, Diet tolerance, PO Intake, Wound/skin status, Medical course
[2018-01-28] MEDS ORDERED: Loratadine 10 MG Tablet PO ONE (16:15)
--- NOTE | 2018-01-28 17:57 | P.PN ---
Subjective Interval history: complains of pain left foot baseline state ambulates with a cane- history offoot drop left no fever or chills elevated BP readings per patient at one point was on BESSIE inhibitr but mainly given for renal protection from DM Physical Exam Vital signs: Vital Signs 01/27/18 18:00 01/27/18 19:00 01/27/18 20:00 Temperature 97.8 F Pulse Rate 60 75 88 Respiratory Rate 16 15 20 Blood Pressure 162/98 H 156/88 H 151/94 H Pulse Oximetry 97 100 100 01/27/18 21:00 01/27/18 22:00 01/27/18 22:02 Temperature 98.4 F 98.4 F Pulse Rate 74 78 77 Respiratory Rate 19 15 19 Blood Pressure 178/94 H 173/102 H 169/99 H Pulse Oximetry 99 100 100 01/27/18 23:00 01/27/18 23:24 01/28/18 00:00 Temperature 98.4 F 97.4 F L Pulse Rate 88 60 74 Respiratory Rate 22 20 17 Blood Pressure 161/104 H 100/58 L 167/97 H Pulse Oximetry 98 96 99 01/28/18 01:00 01/28/18 02:00 01/28/18 03:00 Temperature Pulse Rate 75 80 72 Respiratory Rate 20 21 18 Blood Pressure 164/92 H 194/110 H 170/99 H Pulse Oximetry 98 100 98 01/28/18 04:00 01/28/18 05:00 01/28/18 05:05 Temperature Pulse Rate 73 68 74 Respiratory Rate 19 14 20 Blood Pressure 166/102 H 176/96 H Pulse Oximetry 95 98 98 01/28/18 06:00 01/28/18 07:00 01/28/18 08:00 Temperature Pulse Rate 80 72 77 Respiratory Rate 20 13 16 Blood Pressure 196/94 H 171/100 H 200/97 H Pulse Oximetry 97 95 100 01/28/18 09:00 01/28/18 09:19 01/28/18 10:00 Temperature Pulse Rate 73 79 71 Respiratory Rate 14 14 13 Blood Pressure 185/100 H 182/98 H 169/92 H Pulse Oximetry 97 96 95 01/28/18 11:00 01/28/18 12:00 01/28/18 13:00 Temperature 98.2 F Pulse Rate 74 74 81 Respiratory Rate 14 14 14 Blood Pressure 199/97 H 195/102 H 150/95 H Pulse Oximetry 96 95 98 01/28/18 14:00 01/28/18 15:00 01/28/18 16:00 Temperature 98.7 F Pulse Rate 73 71 67 Respiratory Rate 19 13 12 Blood Pressure 193/97 H 191/104 H 179/103 H Pulse Oximetry 98 98 97 01/28/18 17:00 01/28/18 17:01 Temperature Pulse Rate 69 68 Respiratory Rate 13 13 Blood Pressure 203/102 H Pulse Oximetry 98 98 Intake & Output 01/27/18 01/28/18 01/28/18 18:59 06:59 18:59 Intake Total 5189 / 5189 7446 / 7446 200 / 200 Output Total 1999 / 1999 Balance 5189 / 5189 5446 / 5446 200 / 200 Intake: IV 3439 / 3439 2100 / 2100 200 / 200 D5W/Normal Saline Inj 1,000 ML 1000 / 1000 @ 200 mls/hr IV.CONT .Q5H JORDAN Rx#:[id number] NovoLIN R (IV Infusion) 100 39 / 39 0 / 0 UNIT In NS Inj 99 ML @ 1 UNITS/ HR 1 mls/hr IV.CONT TITRATE PRN Rx#:[id number] NS Inj 1,000 ML @ 250 mls/hr IV 1000 / 1000 .CONT .Q4H JORDAN Rx#:[id number] Azactam Inj 500 MG In NS Inj 100 / 100 100 / 100 100 / 100 100 ML @ 200 mls/hr IV.SIG Q12H JORDAN Rx#:[id number] KCl 20 mEq Premix Inj 20 meq In 300 / 300 100 / 100 100 ml @ 50 mls/hr IV.SIG Q2H JORDAN Rx#:[id number] Sodium Bicarbonate 8.4% Inj 150 1000 / 1000 MEQ In D5W/Normal Saline Inj 850 ML @ 200 mls/hr IV.SIG .Q5H JORDAN Rx#:[id number] Sodium Bicarbonate 8.4% Inj 150 2000 / 2000 MEQ In Sterile Water for Inj 850 ML @ 200 mls/hr IV.SIG .Q5H JORDAN Rx#:[id number] Oral 1750 / 1750 700 / 700 Other 4646 / 4646 Output: Urine 1600 / 1600 Stool 100 / 100 Emesis 300 / 300 Other: Other Intake Source Saline Solution # Voids 8 4 Date of Last Bowel Movement 0701/27/18 01/27/18 # Bowel Movements 8 8 # Emeses 2 Narrative: awake and alert, oriented x 3 anciteric lungs- no rales regular rhythm abdomen soft, nontender left heel with very superficial wound, dry , mild surrounding erythema, ++ DP + foot drop, + left malleolar swelling- per patient both chronic Results - Labs CBC & Chem 7: 01/28/18 11:30 01/28/18 11:30 Laboratory Results - last 24 hr 01/27/18 01/27/18 01/27/18 18:04 18:12 21:37 WBC RBC Hgb Hct MCV MCH MCHC RDW Plt Count MPV Sodium 145 Potassium 3.3 L Chloride 117 H Carbon Dioxide 17.7 L Anion Gap 10 BUN 35 H Creatinine 4.02 H Estimated GFR 17 L POC Glucose 124 H 159 H Random Glucose 145 H Calcium 7.3 L* Prot Corrected Calcium 8.6 Phosphorus 3.5 Magnesium 1.9 Total Bilirubin AST ALT Alkaline Phosphatase Total Protein 4.8 L Albumin Beta-Hydroxybutyric Acd 0.18 D 01/28/18 01/28/18 01/28/18 01:24 04:51 04:51 WBC RBC Hgb Hct MCV MCH MCHC RDW Plt Count MPV Sodium 144 Potassium 2.6 L* Chloride 109 H D Carbon Dioxide 22.1 Anion Gap 13 BUN 32 H Creatinine 3.69 H Estimated GFR 19 L POC Glucose 45 L* Random Glucose 44 L* D Calcium 7.5 L Prot Corrected Calcium Phosphorus 3.3 Magnesium 1.7 Total Bilirubin AST ALT Alkaline Phosphatase Total Protein Albumin Beta-Hydroxybutyric Acd 0.07 01/28/18 01/28/18 01/28/18 06:26 07:07 11:18 WBC RBC Hgb Hct MCV MCH MCHC RDW Plt Count MPV Sodium Potassium Chloride Carbon Dioxide Anion Gap BUN Creatinine Estimated GFR POC Glucose 39 L* 100 262 H Random Glucose Calcium Prot Corrected Calcium Phosphorus Magnesium Total Bilirubin AST ALT Alkaline Phosphatase Total Protein Albumin Beta-Hydroxybutyric Acd 01/28/18 01/28/18 11:30 11:30 WBC 5.6 D RBC 3.18 L Hgb 9.1 L Hct 26.9 L MCV 84.5 MCH 28.7 MCHC 34.0 RDW 15.1 Plt Count 203 MPV 8.4 Sodium 144 Potassium 3.1 L Chloride 106 Carbon Dioxide 28.4 Anion Gap 10 BUN 30 H Creatinine 3.40 H Estimated GFR 21 L POC Glucose Random Glucose 294 H D Calcium 6.8 L* Prot Corrected Calcium 8.1 L Phosphorus Magnesium Total Bilirubin 0.2 AST 15 ALT 17 Alkaline Phosphatase 83 Total Protein 4.6 L Albumin 1.9 L Beta-Hydroxybutyric Acd Microbiology 01/26/18 04:50 Blood - Peripheral Aerobic Blood Culture - Preliminary Staphylococcus coag negative 01/26/18 04:50 Blood - Peripheral Anaerobic Blood Culture - Preliminary No growth in 2 days 01/26/18 05:00 Blood - Peripheral Aerobic Blood Culture - Preliminary No growth in 2 days 01/26/18 05:00 Blood - Peripheral Anaerobic Blood Culture - Preliminary No growth in 2 days 01/26/18 05:30 Wound - Heel Gram Stain - Final 01/26/18 05:30 Wound - Heel Wound Culture - Final Staphylococcus aureus Assessment and Plan - Plan 37yM with ESRD and DKA, likely secondary to foot cellulitis. critically ill with severe metabolic acidosis- will likely need urgent hemodialysis to assist in clearing his acid load. S/P DKA - continue sliding scale- earlier this am- 40s - on Levemer 15 units bid- held - continue to monitor and restart Levemer in am - we may get by with just once a day Levemer - d/w patient- he is on Insulin drip Acute on CKD V likely from diabetic nephropathy - at one point was on HD - Right UE AVF in place- good thrill - renal ff- no need for HD at this time, non oliguric Hypertension uncontrolled - denies any history but when reviewed with him was taking Furosemide per patient 40 mg daily - per patient for leg swelling - at one point was on BESSIE but mainly for renal protection- was DC as OP with worsening renal funciton - get ECho - start clonidine prn - consider starting scheduled meds - in am - IVF rate was decreased tp 100 cc/hr by Nephrology Left Foot cellulitis with superficial left heel ulcer Vancomycin with pharmacy dosing aztreonam 2gm load, 500mg iv q12h (renally dosed) strict i/o's wound care team ff and Podiatry as well Hypokalemia- - replaced - on HC03 drip per nephrology - recheck in am History of DVT on home eliquis for h/o DVT + Nausea - Zofran prn, PPI protonix SCDs
[2018-01-29 07:34] LABS: Calcium 6.9 mg/dL (8.5-10.1); Carbon Dioxide 30.9 meq/L (21.0-32.0)
[2018-01-29 07:42] LABS: Potassium 2.8 meq/L (3.5-5.1)
--- NOTE | 2018-01-29 08:02 | P.PN ---
Subjective Interval history: afebrile no complains tolerating po well Physical Exam Vital signs: Vital Signs 01/28/18 08:00 01/28/18 09:00 01/28/18 09:19 Temperature Pulse Rate 77 73 79 Respiratory Rate 16 14 14 Blood Pressure 200/97 H 185/100 H 182/98 H Pulse Oximetry 100 97 96 01/28/18 10:00 01/28/18 11:00 01/28/18 12:00 Temperature 98.2 F Pulse Rate 71 74 74 Respiratory Rate 13 14 14 Blood Pressure 169/92 H 199/97 H 195/102 H Pulse Oximetry 95 96 95 01/28/18 13:00 01/28/18 14:00 01/28/18 15:00 Temperature Pulse Rate 81 73 71 Respiratory Rate 14 19 13 Blood Pressure 150/95 H 193/97 H 191/104 H Pulse Oximetry 98 98 98 01/28/18 16:00 01/28/18 17:00 01/28/18 17:01 Temperature 98.7 F Pulse Rate 67 69 68 Respiratory Rate 12 13 13 Blood Pressure 179/103 H 203/102 H Pulse Oximetry 97 98 98 01/28/18 17:11 01/28/18 18:00 01/28/18 20:00 Temperature 98.4 F Pulse Rate 68 77 74 Respiratory Rate 13 25 H 14 Blood Pressure 195/109 H 193/106 H 206/108 H Pulse Oximetry 98 97 95 01/28/18 21:00 01/28/18 22:00 01/28/18 23:00 Temperature Pulse Rate 75 74 74 Respiratory Rate 14 14 Blood Pressure 206/108 H 157/90 H Pulse Oximetry 95 96 01/29/18 00:00 01/29/18 01:00 01/29/18 02:00 Temperature 97.4 F L Pulse Rate 70 71 70 Respiratory Rate 14 13 12 Blood Pressure 162/98 H 180/94 H 168/100 H Pulse Oximetry 94 L 96 94 L 01/29/18 03:00 01/29/18 04:00 01/29/18 05:00 Temperature 98 F 96.8 F L Pulse Rate 74 70 70 Respiratory Rate 13 10 L 12 Blood Pressure 169/87 H 169/87 H 192/105 H Pulse Oximetry 94 L 96 96 01/29/18 06:00 Temperature Pulse Rate 70 Respiratory Rate Blood Pressure Pulse Oximetry Intake & Output 01/28/18 01/29/18 01/29/18 18:59 06:59 18:59 Intake Total 920 / 920 4043 / 4043 Output Total 800 / 800 1200 / 1200 Balance 120 / 120 2843 / 2843 Intake: IV 200 / 200 1000 / 1000 NovoLIN R (IV Infusion) 100 0 / 0 UNIT In NS Inj 99 ML @ 1 UNITS/ HR 1 mls/hr IV.CONT TITRATE PRN Rx#:[id number] Azactam Inj 500 MG In NS Inj 100 / 100 100 ML @ 200 mls/hr IV.SIG Q12H J[facility] Rx#:[id number] KCl 20 mEq Premix Inj 20 meq In 100 / 100 100 ml @ 50 mls/hr IV.SIG Q2H J[facility] Rx#:[id number] Sodium Bicarbonate 8.4% Inj 150 1000 / 1000 MEQ In Sterile Water for Inj 850 ML @ 200 mls/hr IV.SIG .Q5H [facility] Rx#:[id number] Oral 720 / 720 720 / 720 Other 2323 / 2323 Output: Urine 800 / 800 800 / 800 Stool 100 / 100 Emesis 300 / 300 Other: Other Intake Source Saline Solution # Voids 4 Date of Last Bowel Movement 01/27/18 01/27/18 # Bowel Movements 0 0 # Emeses 2 Narrative: awake and alert, oriented x 3 anicteric moist oral mucosa neck supple lungs- no rales regular rhythm abdomen soft, nontender no calf swelling or tenderness left heel- superficial ulcer, edges clean, decrease surrounding erythema, minimal drainage on gauze good peripheral pulses Results - Labs CBC & Chem 7: 01/28/18 11:30 01/29/18 04:47 Laboratory Results - last 24 hr 01/28/18 01/28/18 01/28/18 04:51 11:18 11:30 WBC 5.6 D RBC 3.18 L Hgb 9.1 L Hct 26.9 L MCV 84.5 MCH 28.7 MCHC 34.0 RDW 15.1 Plt Count 203 MPV 8.4 Sodium 144 Potassium 2.6 L* Chloride 109 H D Carbon Dioxide 22.1 Anion Gap 13 BUN 32 H Creatinine 3.69 H Estimated GFR 19 L POC Glucose 262 H Random Glucose 44 L* D Calcium 7.5 L Prot Corrected Calcium Phosphorus 3.3 Magnesium 1.7 Total Bilirubin AST ALT Alkaline Phosphatase Total Protein Albumin 01/28/18 01/28/18 01/29/18 11:30 22:35 04:47 WBC RBC Hgb Hct MCV MCH MCHC RDW Plt Count MPV Sodium 144 144 Potassium 3.1 L 2.8 L* Chloride 106 103 Carbon Dioxide 28.4 30.9 Anion Gap 10 10 BUN 30 H 28 H Creatinine 3.40 H 3.18 H Estimated GFR 21 L 22 L POC Glucose 367 H Random Glucose 294 H D 282 H Calcium 6.8 L* 6.9 L* Prot Corrected Calcium 8.1 L Phosphorus Magnesium Total Bilirubin 0.2 AST 15 ALT 17 Alkaline Phosphatase 83 Total Protein 4.6 L Albumin 1.9 L 01/29/18 06:17 WBC RBC Hgb Hct MCV MCH MCHC RDW Plt Count MPV Sodium Potassium Chloride Carbon Dioxide Anion Gap BUN Creatinine Estimated GFR POC Glucose 325 H Random Glucose Calcium Prot Corrected Calcium Phosphorus Magnesium Total Bilirubin AST ALT Alkaline Phosphatase Total Protein Albumin Microbiology 01/26/18 04:50 Blood - Peripheral Aerobic Blood Culture - Preliminary Staphylococcus coag negative 01/26/18 04:50 Blood - Peripheral Anaerobic Blood Culture - Preliminary No growth in 2 days 01/26/18 05:00 Blood - Peripheral Aerobic Blood Culture - Preliminary No growth in 2 days 01/26/18 05:00 Blood - Peripheral Anaerobic Blood Culture - Preliminary No growth in 2 days 01/26/18 05:30 Wound - Heel Gram Stain - Final 01/26/18 05:30 Wound - Heel Wound Culture - Final Staphylococcus aureus Assessment and Plan - Plan 37yM with ESRD and DKA, likely secondary to foot cellulitis. S/P DKA- anion gap down - BS 200-300s - start Levemer at 10 units SQ q am (was on 15 units Bid and had hypoglycemic readings) - d/w patient- he got an insulin pump - ff with an watch crystal cutter in 0- he does not know his basal rate does not have supplies here " he takes care of everything" - consult our watch crystal cutter for recommendation Acute on CKD V likely from diabetic nephropathy - at one point was on HD - Right AVF in place- good thrill - renal ff- no need for HD at this time, non oliguric, creatinine stabilizing- likely baseline - DC HC03 drip - contributing to hypokalemia - change to NS- lower rate, taking po better Hypokalemia - will DC HC03 drip - give IV KCL bolus + po - ff BMP - check Mg Hypertension- uncontrolled - denies any history - at one point was on BESSIE but mainly for renal protection- was DC as OP with worsening renal funciton - requested ECho - started on clonidine prn yesterday - Start Procardia 30 mg XL daily today and adjust - reduce IVF Left Foot cellulitis with plantar ulcer - growing S aureus Bacteremia- 07/27 + possibly contaminant Vancomycin with pharmacy dosing DC Azactam Seen by Podiatry - wound care ordered Consult Infectious disease for recommendation Patient + allergy to PCN- per patient hives History of DVT restart his Eliquis 5 mg po bid - home dose DC SQ heparin + Nausea- improved - Zofran prn - PPI SCDs Transfer to medical floor Increase activity
[2018-01-29 08:10] LABS: Total Protein 4.5 g/dL (6.4-8.2)
[2018-01-29] MEDS ORDERED: Vancomycin Consult Pharmacy 1 EACH OTHER SCH (08:13)
[2018-01-29] MEDS ORDERED: Vancomycin Inj 1,000 MG in Sodium Chlor 0.9% Inj 250 ML IV.SIG ONE (08:17)
[2018-01-29] MEDS ORDERED: Potassium Chlor 20 mEq Premix 20 MEQ/100 ML PIGGYBACK IV.SIG ONE (08:31)
[2018-01-29] MEDS: Insulin Detemir Inj 1,000 UNIT/10 ML Vial SQ SCH (08:35)
[2018-01-29] MEDS: Insulin NovoLOG Aspart Correctional Sugar Inj SQ SCH ×3 (08:36→21:09)
[2018-01-29] MEDS ORDERED: Vancomycin Inj 1,500 MG in Sodium Chlor 0.9% Inj 500 ML IV.SIG ONE (09:00)
[2018-01-29] MEDS: Sod Chloride 0.9% Inj 1,000 ML IV.CONT SCH (12:24)
[2018-01-29] MEDS: Loratadine 10 MG Tablet PO SCH (12:24)
--- NOTE | 2018-01-29 15:54 | ECHRPT ---
Indication: hypertensive heart disease CONCLUSIONS The left ventricular systolic function is normal with an estimated ejection fraction in the range of 60-65%. There is trace tricuspid valve regurgitation. Normal estimated pulmonary pressures. There is trace pericardial effusion present. No hemodynamically significant echocardiographic features were observed (no pre-tamponade physiology). BP: / HR: Rhythm: Sinus Technical Quality:Excellent FINDINGS LEFT VENTRICLE Normal left ventricular size. Wall thickness is normal. The left ventricular systolic function is normal with an estimated ejection fraction in the range of 60-65%. No regional wall motion abnormalities are present. RIGHT VENTRICLE Normal right ventricular size and systolic function. LEFT ATRIUM The left atrial size is upper limits of normal. RIGHT ATRIUM The right atrial size is normal. ATRIAL SEPTUM Normal atrial septal thickness AORTA The aortic root and proximal ascending aorta are normal in size on limited imaging. MITRAL VALVE Structurally normal mitral valve. No mitral valve stenosis or regurgitation. AORTIC VALVE Trileaflet aortic valve. No aortic valve stenosis or regurgitation. TRICUSPID VALVE Structurally normal tricuspid valve. There is trace tricuspid valve regurgitation. Normal estimated pulmonary pressures. PULMONARY VALVE The pulmonary valve is not well visualized. VESSELS The inferior vena cava is normal in size. PERICARDIUM There is trace pericardial effusion present. No hemodynamically significant echocardiographic features were observed (no pre-tamponade physiology). Antonio Pablo DO (Electronically Signed) Final Date:29 January 2018 15:53
--- NOTE | 2018-01-29 16:34 | P.PNNP ---
Subjective Interval history: Patient is alert, now feeling better, no SOB, no abd. pain. Physical Exam Vital signs: Vital Signs 01/28/18 17:00 01/28/18 17:01 01/28/18 17:11 Temperature Pulse Rate 69 68 68 Respiratory Rate 13 13 13 Blood Pressure 203/102 H 195/109 H Pulse Oximetry 98 98 98 01/28/18 18:00 01/28/18 19:00 01/28/18 19:13 Temperature Pulse Rate 77 74 75 Respiratory Rate 25 H 16 13 Blood Pressure 193/106 H 204/103 H 179/102 H Pulse Oximetry 97 94 L 97 01/28/18 20:00 01/28/18 21:00 01/28/18 22:00 Temperature 98.4 F Pulse Rate 75 75 77 Respiratory Rate 12 14 15 Blood Pressure 209/104 H 206/108 H 162/98 H Pulse Oximetry 95 95 95 01/28/18 23:00 01/28/18 23:20 01/29/18 00:00 Temperature 97.4 F L Pulse Rate 74 79 72 Respiratory Rate 7 L 18 13 Blood Pressure 157/90 H 157/90 H 162/98 H Pulse Oximetry 96 98 96 01/29/18 01:00 01/29/18 01:07 01/29/18 02:00 Temperature Pulse Rate 71 71 70 Respiratory Rate 13 13 12 Blood Pressure 180/94 H 180/94 H 168/100 H Pulse Oximetry 96 96 94 L 01/29/18 02:02 01/29/18 03:00 01/29/18 04:00 Temperature 98 F Pulse Rate 70 74 71 Respiratory Rate 8 L 13 9 L Blood Pressure 168/100 H 165/89 H 169/87 H Pulse Oximetry 92 L 92 L 94 L 01/29/18 05:00 01/29/18 06:00 01/29/18 07:00 Temperature 96.8 F L Pulse Rate 70 72 71 Respiratory Rate 12 8 L 11 L Blood Pressure 192/103 H 193/105 H 198/101 H Pulse Oximetry 96 91 L 95 01/29/18 07:32 01/29/18 08:00 01/29/18 08:01 Temperature 98.6 F Pulse Rate 77 72 71 Respiratory Rate 14 10 L 10 L Blood Pressure 154/80 H 181/95 H 181/95 H Pulse Oximetry 98 95 95 01/29/18 08:40 01/29/18 09:00 01/29/18 09:30 Temperature Pulse Rate 84 95 H 99 H Respiratory Rate 14 15 13 Blood Pressure 122/81 121/76 110/67 Pulse Oximetry 95 99 96 01/29/18 10:00 01/29/18 10:30 01/29/18 11:00 Temperature Pulse Rate 87 85 69 Respiratory Rate 11 L 14 14 Blood Pressure 109/63 109/70 Pulse Oximetry 97 95 99 01/29/18 11:01 01/29/18 11:07 01/29/18 12:00 Temperature 98.7 F Pulse Rate 69 72 Respiratory Rate 12 20 13 Blood Pressure 162/94 H 140/86 Pulse Oximetry 99 99 Intake & Output 01/28/18 01/29/18 01/29/18 18:59 06:59 18:59 Intake Total 920 / 920 4043 / 4043 Output Total 800 / 800 1200 / 1200 Balance 120 / 120 2843 / 2843 Intake: IV 200 / 200 1000 / 1000 NovoLIN R (IV Infusion) 100 0 / 0 UNIT In NS Inj 99 ML @ 1 UNITS/ HR 1 mls/hr IV.CONT TITRATE PRN Rx#:[id number] Azactam Inj 500 MG In NS Inj 100 / 100 100 ML @ 200 mls/hr IV.SIG Q12H [facility] Rx#:[id number] KCl 20 mEq Premix Inj 20 meq In 100 / 100 100 ml @ 50 mls/hr IV.SIG Q2H [facility] Rx#:[id number] Sodium Bicarbonate 8.4% Inj 150 1000 / 1000 MEQ In Sterile Water for Inj 850 ML @ 200 mls/hr IV.SIG .Q5H [facility] Rx#:[id number] Oral 720 / 720 720 / 720 Other 2323 / 2323 Output: Urine 800 / 800 800 / 800 Stool 100 / 100 Emesis 300 / 300 Other: Other Intake Source Saline Solution # Voids 4 Date of Last Bowel Movement 01/27/18 01/27/18 01/29/18 # Bowel Movements 0 0 # Emeses 2 - Constitutional mild distress - Routine HEENT Exam Head: Present: normocephalic - Routine Neck Exam Present: supple - Routine Respiratory Exam Present: decreased breath sounds, rhonchi, diminished air movement - Routine Cardiovascular Exam Present: S1, S2, tachycardia - Routine Abdominal Exam Present: soft, normoactive bowel sounds, distended - Routine Extremities Exam Present: edema - Routine Neurological Exam Present: alert, oriented X3 - Detailed Neurological Exam: Coma Scale Verbal Response: Oriented Assessment and Plan - Assessment (1) Chronic kidney disease, stage 4, severely decreased GFR Code(s): N18.4 - Chronic kidney disease, stage 4 (severe) Status: Acute (2) DKA, type 1 Code(s): E10.10 - Type 1 diabetes mellitus with ketoacidosis without coma Status: Acute Qualifiers: Diabetes mellitus complication detail: without coma Qualified Code(s): E10.10 - Type 1 diabetes mellitus with ketoacidosis without coma - Plan Acute kidney injury with Stage 4 Chronic kidney disease: Acute kidney injury on CKD Creatinine continue to improve. He has AVF done and has stage 4 chronic kidney disease. Has underlying chronic kidney disease is likely due to diabetic nephropathy. He is followed by [facility] Dr. Garsia in [place]. Suspect is his baseline 3.4-3.7. He has a AVF in right lower arm with good thrill and bruit. Per patient not ready for use, however not followed for maturation. (may evaluate for maturity as an outpatient - excellent thrill, AVF made in [address] Finn. Creatinine continues to improve HCO3 added to IVFs: HC03 10.8 -> 14 --> 17 Potassium is low, replaced. Urinary output improved. No need for HD, GFR is better. Continue IVFs and DKA protocol Hypokalemia: continue replacement Will monitor urinary output and BMP Maintain strict I+O and avoid nephrotoxic agents. No need for dialysis at this time DKA continue DKA protocol. Hypoglycemia overnight
[2018-01-29] MEDS ORDERED: Potassium Chloride 10 MEQ ER Capsule PO ONE (17:48)
[2018-01-29] MEDS ORDERED: Mag Sulf 1 gm/100 ml Premix 100 ML IV.SIG ONE (17:50)
--- NOTE | 2018-01-29 18:33 | MB ---
cc: Nader Gama MD DATE: 01/29/2018 REQUESTING PHYSICIAN: Dr. Irizarry REASON: Plantar ulcer. Growing heavy Staph aureus. Positive blood culture in 1 of 4 bottles. HISTORY OF PRESENT ILLNESS: This is a 37-year-old white male who has diabetes mellitus. The patient was admitted to the hospital with diabetic ketoacidosis. He has history of chronic kidney disease, but has not required but has not been felt to require chronic hemodialysis. He is producing urine. The patient has had a chronic wound on his left heel and he has [facility] [place], [place]. He was previously admitted to this hospital in November 2017 and MRI of the left foot did not show any signs of osteomyelitis. There was no evidence of drainage from the heel where he had the chronic ulcer and a culture was not obtained. The patient was discharged without antibiotics. This consultation is now requested because a culture was taken from the left heel and it came back showing Staph aureus. The left heel appears dry and has no drainage currently. The patient was also seen by Podiatry who felt that there was no infection of the left heel and they recommended off-loading for that heel. On admission, the white count was 15.1 on 01/26/2018 and currently the white count is down to 5.6. The patient also had blood cultures taken on admission and 1 of 4 bottles has Staph epidermidis. Currently, he tells me that he has no significant symptom complaints except for feeling cold. An x-ray of the foot from 01/26/2018 shows no acute fracture or dislocation and no radiopaque foreign body or significant soft tissue swelling noted at the left heel. PAST MEDICAL HISTORY: Chronic kidney disease, diabetes mellitus, diabetic retinopathy. The patient reports blindness in the right eye and decreasing in vision in the left eye, diabetic ulcer of the heel, DVT, hypertension, neuropathy, depression. ALLERGIES: AMOXICILLIN, PENICILLIN, MUSHROOM, BROCCOLI. MEDICATIONS: 1. Protonix. 2. Procardia-XL. 3. Claritin. 4. Levemir. 5. Insulin. 6. Eliquis. 7. DuoNeb. SOCIAL HISTORY: No tobacco. Occasional alcohol use. No illicit drugs. FAMILY HISTORY: Noncontributory. REVIEW OF SYSTEMS: All systems reviewed and negative except for that mentioned in the History Of Present Illness. PHYSICAL EXAMINATION: GENERAL: Well-developed male who is in no acute distress. He is alert and oriented. VITAL SIGNS: Temperature 98.7, blood pressure 140/86, heart rate 104, respirations 16. HEENT: Head is atraumatic. Extraocular movements grossly intact. Pupils reactive to light. No conjunctival erythema. Oropharynx: Moist mucosa, without lesions. NECK: Supple, no adenopathy. LUNGS: Clear breath sounds bilaterally with decreased breath sounds. HEART: Regular S1 and S2, without murmurs, rubs or gallops. ABDOMEN: Bowel sounds present. Soft, no tenderness appreciated. RECTAL: Not performed. EXTREMITIES: The left heel has a dried ulceration with no visible erythema. 1+ edema at the left ankle. Other extremities have no clubbing, cyanosis or edema. SKIN: No diffuse rash. NEUROLOGIC: No gross focal findings. PSYCHIATRIC: The patient is calm and cooperative. LABORATORY DATA: WBC 5.6, hemoglobin 9.1, platelets 203. Creatinine 3.18, estimated GFR 22, sodium 144, potassium earlier today was 3.2. Blood culture in 1 of 4 bottles has Staph epidermidis. Culture of plantar wound has Staphylococcus aureus, but the Gram's stain showed rare gram-positive cocci. IMPRESSION: 1. No evidence of osteomyelitis in this patient with chronic left heel ulceration. 2. Diabetic ulceration. 3. Positive blood culture in one of four bottles which very likely is contamination in patient without symptoms suggesting sepsis. 4. Chronic kidney disease. RECOMMENDATIONS: Would not treat with antibiotics since I think the Staph is the wound culture is likely contamination. The Staph epidermidis in the blood is very likely contamination as well with no evidence of infection. Thank you for this consultation. I have nothing new to add on this patient. Please reconsult if additional input from Infectious Disease is needed. I recommend discontinuing vancomycin and proceeding with offloading the heel and having the patient follow up with the wound care, which he was doing previously. Thank you for this consultation. MD HILARY Rojas/MIKE , 05:40 PM , 06:32 PM HARDIK
--- NOTE | 2018-01-29 18:56 | P.PNWCN ---
Wound Care Nurse Consult Description: Received consult for L plantar heel ulceration from Doctor Dennis to apply brijesh/Puracol to wound every 72 hours. Communicated with: CHELI WILHELM call placed to Doctor Dennis Recommendation: Please cleanse wound to L plantar heel with normal saline or wound cleanser and pat dry. Apply Puracol to wound bed and secure with Optifoam basic, rolled gauze and tape. Change dressing every 72 hours as ordered by Doctor eDnnis. Additional information: Patient not seen spoke with CHELI WILHELM and gave supplies for dressing change. RN on floor to apply routine dressing changes as ordered by Doctor Dennis.
[2018-01-30] MEDS: Sod Chloride 0.9% Inj 1,000 ML IV.CONT SCH (02:58)
[2018-01-30] MEDS: Chlorhexidine Gluconate 2% 1 Pack (2 Cloths) TOPICAL SCH (03:42)
[2018-01-30] MEDS: Insulin NovoLOG Aspart Correctional Sugar Inj SQ SCH ×6 (07:17→21:14)
--- NOTE | 2018-01-30 07:48 | P.PN ---
Subjective Interval history: awake and alert, voiding well - good urine output blood sugar readings po 100%, no nausea or vomiting no diarrhea - states Glucerna makes him have loose stools Physical Exam Vital signs: Vital Signs 01/29/18 08:00 01/29/18 08:01 01/29/18 08:40 Temperature 98.6 F Pulse Rate 72 71 84 Respiratory Rate 10 L 10 L 14 Blood Pressure 181/95 H 181/95 H 122/81 Pulse Oximetry 95 95 95 01/29/18 09:00 01/29/18 09:30 01/29/18 10:00 Temperature Pulse Rate 95 H 99 H 87 Respiratory Rate 15 13 11 L Blood Pressure 121/76 110/67 109/63 Pulse Oximetry 99 96 97 01/29/18 10:30 01/29/18 11:00 01/29/18 11:01 Temperature Pulse Rate 85 69 69 Respiratory Rate 14 14 12 Blood Pressure 109/70 162/94 H Pulse Oximetry 95 99 99 01/29/18 11:07 01/29/18 12:00 01/29/18 14:00 Temperature 98.7 F Pulse Rate 72 80 Respiratory Rate 20 13 Blood Pressure 140/86 Pulse Oximetry 99 01/29/18 16:00 01/29/18 18:00 01/29/18 19:00 Temperature 98.9 F Pulse Rate 75 80 79 Respiratory Rate 13 25 H Blood Pressure 148/90 H 145/93 H Pulse Oximetry 97 98 01/29/18 20:00 01/29/18 21:00 01/29/18 22:00 Temperature 98.6 F Pulse Rate 94 H 75 81 Respiratory Rate 25 H 12 15 Blood Pressure 145/93 H 132/76 140/80 Pulse Oximetry 98 01/29/18 23:00 01/30/18 00:00 01/30/18 01:00 Temperature 98.4 F Pulse Rate 74 78 78 Respiratory Rate 11 L 13 12 Blood Pressure 140/80 167/88 H 167/88 H Pulse Oximetry 97 01/30/18 02:00 01/30/18 03:00 01/30/18 04:00 Temperature 98.8 F Pulse Rate 86 75 83 Respiratory Rate 20 11 L 10 L Blood Pressure 167/88 H 167/88 H 181/102 H Pulse Oximetry 98 99 01/30/18 05:00 01/30/18 06:00 Temperature Pulse Rate 83 88 Respiratory Rate 10 L 14 Blood Pressure 164/98 H Pulse Oximetry 98 Intake & Output 01/29/18 01/30/18 01/30/18 18:59 06:59 18:59 Intake Total 1000 / 1000 1580 / 1580 Output Total 1200 / 1200 1500 / 1500 Balance -200 / -200 80 / 80 Intake: IV 1100 / 1100 NS Inj 1,000 ML @ 42 mls/hr IV. 1000 / 1000 CONT .[id number] [facility] Rx#:[id number] Magnesium Sulfate 1 gm/D5W 100 100 / 100 ml Premix 100 ML @ 100 mls/hr IV.SIG ONCE ONE Rx#:[id number] Oral 1000 / 1000 480 / 480 Output: Urine 1200 / 1200 1500 / 1500 Other: Date of Last Bowel Movement 01/29/18 01/29/18 # Bowel Movements 2 0 Narrative: awake and alert, oriented x 3 anicteric moist oral mucosa neck supple lungs- no rales regular rhythm abdomen soft, nontender no calf swelling or tenderness left heel- superficial ulcer, edges clean, decrease surrounding erythema, minimal drainage on gauze good peripheral pulses Results - Labs CBC & Chem 7: 01/28/18 11:30 01/29/18 16:12 Laboratory Results - last 24 hr 01/29/18 01/29/18 01/29/18 04:47 04:47 08:05 Potassium POC Glucose 209 H Prot Corrected Calcium 8.3 L Magnesium 1.7 Total Protein 4.5 L 01/29/18 01/29/18 01/29/18 12:02 16:12 16:12 Potassium 3.2 L POC Glucose 118 H Prot Corrected Calcium Magnesium 1.7 Total Protein 01/29/18 01/29/18 18:23 21:08 Potassium POC Glucose 93 122 H Prot Corrected Calcium Magnesium Total Protein Microbiology 01/26/18 04:50 Blood - Peripheral Aerobic Blood Culture - Final Staphylococcus epidermidis 01/26/18 04:50 Blood - Peripheral Anaerobic Blood Culture - Preliminary No growth in 3 days 01/26/18 05:00 Blood - Peripheral Aerobic Blood Culture - Preliminary No growth in 3 days 01/26/18 05:00 Blood - Peripheral Anaerobic Blood Culture - Preliminary No growth in 3 days Assessment and Plan - Plan 37yM with ESRD and DKA, likely secondary to foot cellulitis. S/P DKA- anion gap down - BS - good readings - off drip since yesterday - started on Levemer at 10 units SQ q am - monitor qd with worsening renal functions (was on 15 units Bid and had hypoglycemic readings)- - d/w patient- he got an insulin pump - ff with an paper production engineer in - he does not know his basal rate does not have supplies here " he- MD takes care of everything" - contiueto monitor and adjust - consulted our paper production engineer for recommendation Acute on CKD V likely from diabetic nephropathy- non oliguric - at one point was on HD - Right AVF in place- good thrill - renal ff- no need for HD at this time, non oliguric, creatinine stabilizing- likely baseline - off HCO3 drip - BMP pending Hypokalemia - off HC03 drip- DC yesterday - given IV KCL bolus + po - ff BMP- pending this am Hypertension- still some elevated readings - denies any history - at one point was on BESSIE but mainly for renal protection- was DC as OP with worsening renal funciton - requested ECho - clonidine prn - - Increase Procardia to 60 mg XL daily today - DC IVF - taking po well Left plantar ulcer - growing S aureus Blood culture - 07/27 + - lilly contaminant Seen by Podiatry - local wound care ordered seen by Dr. Gama - Vancomycin DC History of DVT Eliquis 5 mg po bid - home dose DC SQ heparin + Nausea- resolved - Zofran prn - PPI SCDs Transfer to medical floor Increase activity- out of bed to chair for all meals patient states ambulatory with a cane. He states he got a walker at home but does not use it- "no space to move around with it"
[2018-01-30] MEDS: Loratadine 10 MG Tablet PO SCH (08:19)
[2018-01-30] MEDS: Insulin Detemir Inj 1,000 UNIT/10 ML Vial SQ SCH (08:33)
[2018-01-30 09:30] LABS: Calcium 7.2 mg/dL (8.5-10.1); Carbon Dioxide 25.2 meq/L (21.0-32.0); Magnesium 2.1 mg/dL (1.5-2.5); Potassium 3.6 meq/L (3.5-5.1); Vancomycin,Random 20.2 Comment
[2018-01-30 09:52] LABS: Total Protein 4.9 g/dL (6.4-8.2)
--- NOTE | 2018-01-30 15:42 | P.PNNP ---
Subjective Interval history: Patient resting comfortably only complaint is fatigue. Creatinine is stable at 3.26 with good urinary output. <Jazlyn De Anda - Last Filed: 01/30/18 15:35> Physical Exam Vital signs: Vital Signs 01/29/18 16:00 01/29/18 18:00 01/29/18 19:00 Temperature 98.9 F Pulse Rate 75 80 79 Respiratory Rate 13 25 H Blood Pressure 148/90 H 145/93 H Pulse Oximetry 97 98 01/29/18 20:00 01/29/18 21:00 01/29/18 22:00 Temperature 98.6 F Pulse Rate 94 H 75 81 Respiratory Rate 25 H 12 15 Blood Pressure 145/93 H 132/76 140/80 Pulse Oximetry 98 01/29/18 23:00 01/30/18 00:00 01/30/18 01:00 Temperature 98.4 F Pulse Rate 74 78 78 Respiratory Rate 11 L 13 12 Blood Pressure 140/80 167/88 H 167/88 H Pulse Oximetry 97 01/30/18 02:00 01/30/18 03:00 01/30/18 04:00 Temperature 98.8 F Pulse Rate 86 75 83 Respiratory Rate 20 11 L 10 L Blood Pressure 167/88 H 167/88 H 181/102 H Pulse Oximetry 98 99 01/30/18 05:00 01/30/18 06:00 01/30/18 08:00 Temperature 98.2 F Pulse Rate 83 88 80 Respiratory Rate 10 L 14 12 Blood Pressure 164/98 H 180/107 H Pulse Oximetry 98 01/30/18 12:00 Temperature 98.7 F Pulse Rate 78 Respiratory Rate 14 Blood Pressure 175/101 H Pulse Oximetry Intake & Output 01/29/18 01/30/18 01/30/18 18:59 06:59 18:59 Intake Total 1000 / 1000 1580 / 1580 Output Total 1200 / 1200 1500 / 1500 Balance -200 / -200 80 / 80 Intake: IV 1100 / 1100 NS Inj 1,000 ML @ 42 mls/hr IV. 1000 / 1000 CONT .[id number] [facility] Rx#:[id number] Magnesium Sulfate 1 gm/D5W 100 100 / 100 ml Premix 100 ML @ 100 mls/hr IV.SIG ONCE ONE Rx#:[id number] Oral 1000 / 1000 480 / 480 Output: Urine 1200 / 1200 1500 / 1500 Other: Date of Last Bowel Movement 01/29/18 01/29/18 01/29/18 # Bowel Movements 2 0 - Constitutional no acute distress - Routine HEENT Exam Head: Present: normocephalic ENT: Present: mucous membranes moist - Routine Neck Exam Present: supple. Absent: JVD - Routine Respiratory Exam Present: CTA bilaterally. Absent: rales, rhonchi, wheezes - Routine Cardiovascular Exam Present: RRR - Routine Abdominal Exam Present: soft, normoactive bowel sounds - Routine Extremities Exam Present: AV fistula. Absent: edema - Routine Skin Exam Present: dry, warm, wounds - Routine Neurological Exam Present: alert, oriented X3 - Routine Psychiatric Exam Present: cooperative <Jazlyn De Anda - Last Filed: 01/30/18 15:35> Vital signs: Vital Signs 01/29/18 20:00 01/29/18 21:00 01/29/18 22:00 Temperature 98.6 F Pulse Rate 94 H 75 81 Respiratory Rate 25 H 12 15 Blood Pressure 145/93 H 132/76 140/80 Pulse Oximetry 98 01/29/18 23:00 01/30/18 00:00 01/30/18 01:00 Temperature 98.4 F Pulse Rate 74 78 78 Respiratory Rate 11 L 13 12 Blood Pressure 140/80 167/88 H 167/88 H Pulse Oximetry 97 01/30/18 02:00 01/30/18 03:00 01/30/18 04:00 Temperature 98.8 F Pulse Rate 86 75 83 Respiratory Rate 20 11 L 10 L Blood Pressure 167/88 H 167/88 H 181/102 H Pulse Oximetry 98 99 01/30/18 05:00 01/30/18 06:00 01/30/18 08:00 Temperature 98.2 F Pulse Rate 83 88 80 Respiratory Rate 10 L 14 12 Blood Pressure 164/98 H 180/107 H Pulse Oximetry 98 01/30/18 12:00 Temperature 98.7 F Pulse Rate 78 Respiratory Rate 14 Blood Pressure 175/101 H Pulse Oximetry Intake & Output 01/30/18 01/30/18 01/31/18 06:59 18:59 06:59 Intake Total 1580 / 1580 950 / 950 Output Total 1500 / 1500 1300 / 1300 Balance 80 / 80 -350 / -350 Intake: IV 1100 / 1100 NS Inj 1,000 ML @ 42 mls/hr IV. 1000 / 1000 CONT .[id number] [facility] Rx#:[id number] Magnesium Sulfate 1 gm/D5W 100 100 / 100 ml Premix 100 ML @ 100 mls/hr IV.SIG ONCE ONE Rx#:[id number] Oral 480 / 480 950 / 950 Output: Urine 1500 / 1500 1300 / 1300 Other: Date of Last Bowel Movement 01/29/18 01/29/18 # Bowel Movements 0 <Bay Gifford - Last Filed: 01/30/18 19:11> Assessment and Plan - Assessment (1) Chronic kidney disease, stage 4, severely decreased GFR Code(s): N18.4 - Chronic kidney disease, stage 4 (severe) Status: Acute (2) DKA, type 1 Code(s): E10.10 - Type 1 diabetes mellitus with ketoacidosis without coma Status: Acute Qualifiers: Diabetes mellitus complication detail: without coma Qualified Code(s): E10.10 - Type 1 diabetes mellitus with ketoacidosis without coma - Plan Acute kidney injury with Stage 4 Chronic kidney disease: Acute kidney injury on CKD Creatinine continue to improve. He has AVF done and has stage 4 chronic kidney disease. Has underlying chronic kidney disease is likely due to diabetic nephropathy. He is followed by Entry Level Account Manager Dr. Garsia in [place]. Suspect is his baseline 3.4-3.7. He has a AVF in right lower arm with good thrill and bruit. Per patient not ready for use, however not followed for maturation. (may evaluate for maturity as an outpatient - excellent thrill, AVF [place] [address] Finn. Creatinine is stable at 3.26 today HC03 10.8 -> 14 --> 17-> 25.2 IVF have been discontinued. Hypokalemia resolved Urinary output excellent Will monitor urinary output and BMP Maintain strict I+O and avoid nephrotoxic agents. No need for dialysis at this time DKA Blood sugars have improved. Off insulin gtt Hypertensive Blood pressure labile and high at times. Procardia increased today. <Jazlyn De Anda - Last Filed: 01/30/18 15:35> - Assessment (1) Chronic kidney disease, stage 4, severely decreased GFR Code(s): N18.4 - Chronic kidney disease, stage 4 (severe) Status: Acute (2) DKA, type 1 Code(s): E10.10 - Type 1 diabetes mellitus with ketoacidosis without coma Status: Acute Qualifiers: Diabetes mellitus complication detail: without coma Qualified Code(s): E10.10 - Type 1 diabetes mellitus with ketoacidosis without coma - Attending Attestation Patient seen and examined, agree with above. Creatinine stable, BS is labile, follow urine out put and BMP. <Bay Gifford - Last Filed: 01/30/18 19:11>
[2018-01-30] MEDS: Dextrose 50% in Water 50 ML Vial IV.PUSH PRN ×2 (16:40→16:44)
[2018-01-30] MEDS ORDERED: Insulin Detemir Inj 1,000 UNIT/10 ML Vial SQ SCH (17:00)
--- NOTE | 2018-01-30 20:41 | P.CONEN ---
History of Present Illness Consult date: 01/30/18 Consult reason: Diabetes or abnormal blood glucose management Requesting physician: Darian Phan History of Present Illness: This is a 37 years old gentleman with a longstanding history of type 1 diabetes complicated by proliferative retinopathy, Nephropathy, CKD stage 4, Peripheral neuropathy currently dealing with a left calcaneous pressure ulcer who was recently admitted with DKA presumably precipitated by his wound infection. Currently the DKA is resolved he has been on the insulin drip. He does have his insulin pump with him in the room but he does not have his supplies. He is versed in carb counting per his report but does not know the insulin pump settings or his ratios. Otherwise note from Diettitian was reviewed and appreciated. He is currently on a 1800 SARAH ADA low sodium diet. He was also ordered Glucerna supplements which he is not able to tolerate due to his lactose intolerance. Currently he has been ordering his food for the last 2 days from the cafeteria. He does have a good appetite. At home he tends to eat about 60 - 70 grams of carbohydrates per meal. Otherwise he has an allergy to Broccoli and Mushrooms both of which he reports leads to anaphylactic shock. The patient also has a history of GERD but to his knowledge no history of Gastroparesis. His blood sugars have been widely fluctuating. Other pertinent history in his case includes: Review of Systems Constitutional: Reports weight loss Comments: He has had some unintentional weight loss (please see nutrition note for more information) Eyes: Reports loss of vision Comments: He has a history of proliferative diabetic retinopathy and is blind in his right eye and has had laser treatments in his left eye as well Comments: He has a history of GERD and has been dealing with stomach upset due to his lactose intolerance. Comments: He has a history of CKD stage 4 which is being followed by nephrology. Currently on conservative medical treatment although he already has a shunt in his right forearm. Skin/Breast: Reports skin ulcer Comments: Basically a pressure wound on his left heel Comments: He does have a history of depression Allergic/Immunologic: Reports GI upset with certain foods (lactose intolerant), Reports other (anaphylaxis with Broccoli and with Mushrooms) PMFSH - History History Provided By: Patient, Medical Record - Medical History Medical History: Medical History (Last Reviewed 01/26/18 @ 20:37 by Cherie Dennis DPM) AVF (arteriovenous fistula) Anxiety CKD (chronic kidney disease) stage 5, GFR less than 15 ml/min DVT (deep venous thrombosis) Depression Diabetes Diabetic retinopathy Diabetic ulcer of heel Hypertension Neuropathy - Surgical History Surgical History: Surgical History (Last Reviewed 01/26/18 @ 20:37 by Cherie Dennis DPM) Status post right foot surgery - Tobacco History Second Hand Smoke Exposure: Yes Tobacco Use In Past 30 Days: No Smoking Status: Former smoker Tobacco Type: E-Cigarettes - Alcohol History How Often Do You Have a Drink Containing Alcohol: Monthly or less - Substance Use History Substance History: No History of Abuse - Substance Use Type Marijuana Status: Active - Travel History History of Recent Travel: No Recent Travel in the [place] Within the Last 8 Weeks: No Recent Travel Out of the Country Within the Last 8 Weeks: No - Immunization History Tetanus Immunization: <5 Years Hx Influenza Vaccine This Season: No Medications and Allergies Active Medications: Active Medications Acetaminophen (Tylenol) 650 mg PO Q6H PRN PRN Reason: PAIN 1-10 AND/OR FEVER >101F Last Admin: 01/27/18 08:05 Dose: 650 mg Albuterol (Duoneb Neb (Prn)) 1 ampul NEB Q2HR NEB PRN PRN Reason: WHEEZING Apixaban (Eliquis) 5 mg PO BID [facility] Last Admin: 01/30/18 08:19 Dose: 5 mg Chlorhexidine Gluconate (Chlorhexidine 2% Cloth) 3 pack TOPICAL DAILY@0400 JORDAN Stop: 02/01/18 03:59 Last Admin: 01/30/18 03:42 Dose: 3 pack Chlorhexidine Gluconate (Chlorhexidine 2% Cloth) 3 pack TOPICAL DAILY@0400 PRN PRN Reason: Extra cloth needed Stop: 02/01/18 03:59 Clonidine HCl (Catapres) 0.1 mg PO Q6H PRN PRN Reason: SBP>160, DBP>90 Last Admin: 01/30/18 05:07 Dose: 0.1 mg Dextrose (D50w Vial) 50 ml IV.PUSH UNSCH PRN PRN Reason: PER HYPOGLYCEMIA PROTOCOL Last Admin: 01/30/18 16:44 Dose: 50 ml Glucagon (Glucagon Inj) 1 mg OTHER PRN PRN PRN Reason: for Hypoglycemia Protocol Insulin Aspart (Novolog Insulin Suppl Scale Inj) 0 unit SQ ACHS [facility]; Protocol Last Admin: 01/30/18 14:12 Dose: 7 unit Insulin Detemir (Levemir Inj) 15 unit SQ DAILY [facility] Insulin Detemir (Levemir Inj) 5 unit SQ HS@1700 [facility] Loratadine (Claritin) 10 mg PO DAILY [facility] Last Admin: 01/30/18 08:19 Dose: 10 mg Nifedipine (Procardia Xl) 60 mg PO DAILY [facility] Last Admin: 01/30/18 08:28 Dose: 60 mg Ondansetron HCl (Zofran Inj) 4 mg IV.PUSH Q6H PRN PRN Reason: NAUSEA Last Admin: 01/28/18 16:18 Dose: 4 mg Oxycodone/Acetaminophen (Percocet 5/325 Mg) 1 tab PO Q6H PRN PRN Reason: PAIN SCALE 6 TO 10 Last Admin: 01/30/18 14:09 Dose: 1 tab Pantoprazole Sodium (Protonix) 40 mg PO DAILY [facility] Last Admin: 01/30/18 08:19 Dose: 40 mg Sodium Chloride (Ns Flush) 2 ml IV.FLUSH BID [facility] Last Admin: 01/30/18 08:20 Dose: 2 ml Sodium Chloride (Ns Flush) 2 ml IV.FLUSH PRN PRN PRN Reason: FLUSH AFTER USING IV ACCESS Allergies Allergy/AdvReac Type Severity Reaction Status Date / Time amoxicillin Allergy Severe Rash Verified 01/26/18 07:11 broccoli Allergy Severe ANAPHYLAXIS Verified 01/26/18 07:11 mushroom Allergy Severe ANAPHYLAXIS Verified 01/26/18 07:11 penicillin G Allergy Severe Hives Verified 01/26/18 07:11 *MDRO Multi-Drug Resistant AdvReac Unknown Arrhythmias Uncoded 01/26/18 07:11 Organism Home Medications Medication Instructions Recorded Confirmed Type Multi Vitamin 01/26/18 History Vitamin D3 1,000 units 01/26/18 History apixaban [Eliquis] 5 mg PO BID 01/26/18 01/26/18 History aspirin 81 mg PO DAILY 01/26/18 01/26/18 History insulin pump-infus. set-meter 01/26/18 01/26/18 History loratadine 10 mg PO DAILY 01/26/18 01/26/18 History paricalcitol 1 mcg PO DAILY 01/26/18 01/26/18 History sertraline 100 mg PO DAILY 01/26/18 01/26/18 History sodium bicarbonate 325 mg PO TID 01/26/18 01/26/18 History topiramate 50 mg PO DAILY 01/26/18 01/26/18 History tramadol 50 mg PO Q6H 01/26/18 01/26/18 History Exam Vital signs: Vital Signs 01/29/18 21:00 01/29/18 21:21 01/29/18 22:00 Temperature Pulse Rate 75 82 81 Respiratory Rate 12 21 15 Blood Pressure 132/76 132/76 140/80 Pulse Oximetry 01/29/18 23:00 01/30/18 00:00 01/30/18 00:59 Temperature 98.4 F Pulse Rate 74 78 81 Respiratory Rate 16 13 11 L Blood Pressure 140/80 167/88 H 167/88 H Pulse Oximetry 97 01/30/18 01:00 01/30/18 02:00 01/30/18 03:00 Temperature Pulse Rate 78 86 75 Respiratory Rate 8 L 20 7 L Blood Pressure 167/88 H 167/88 H 167/88 H Pulse Oximetry 98 01/30/18 04:00 01/30/18 05:00 01/30/18 05:01 Temperature 98.8 F Pulse Rate 77 83 86 Respiratory Rate 10 L 10 L 12 Blood Pressure 181/102 H 181/102 H Pulse Oximetry 99 98 01/30/18 06:00 01/30/18 06:33 01/30/18 07:00 Temperature Pulse Rate 88 82 93 H Respiratory Rate 14 9 L 17 Blood Pressure 164/98 H 164/98 H Pulse Oximetry 01/30/18 08:00 01/30/18 08:03 01/30/18 09:00 Temperature 98.2 F Pulse Rate 80 79 95 H Respiratory Rate 11 L 11 L 14 Blood Pressure 180/107 H 188/107 H 161/98 H Pulse Oximetry 01/30/18 10:00 01/30/18 11:00 01/30/18 12:00 Temperature 98.7 F Pulse Rate 80 81 78 Respiratory Rate 15 15 14 Blood Pressure 164/98 H 167/97 H 175/101 H Pulse Oximetry 01/30/18 12:21 01/30/18 13:00 01/30/18 14:00 Temperature Pulse Rate 82 98 H 80 Respiratory Rate 19 20 21 Blood Pressure 145/91 H 124/73 139/82 Pulse Oximetry 98 98 01/30/18 15:00 01/30/18 16:00 01/30/18 17:00 Temperature Pulse Rate 75 84 81 Respiratory Rate 15 12 17 Blood Pressure 153/88 H 119/71 130/78 Pulse Oximetry 97 95 97 01/30/18 18:00 01/30/18 19:00 Temperature Pulse Rate 96 H 87 Respiratory Rate 1 L 9 L Blood Pressure 131/81 111/67 Pulse Oximetry Intake & Output 01/30/18 01/30/18 01/31/18 06:59 18:59 06:59 Intake Total 1580 / 1580 950 / 950 Output Total 1500 / 1500 1300 / 1300 Balance 80 / 80 -350 / -350 Intake: IV 1100 / 1100 NS Inj 1,000 ML @ 42 mls/hr IV. 1000 / 1000 CONT .[id number] [facility] Rx#:[id number] Magnesium Sulfate 1 gm/D5W 100 100 / 100 ml Premix 100 ML @ 100 mls/hr IV.SIG ONCE ONE Rx#:[id number] Oral 480 / 480 950 / 950 Output: Urine 1500 / 1500 1300 / 1300 Other: Date of Last Bowel Movement 01/29/18 01/29/18 # Bowel Movements 0 - Constitutional no acute distress, average body habitus, chronically ill appearing, cooperative - Routine HEENT Exam Head: Present: normocephalic, atraumatic Eye: Present: EOMI - Routine Neck Exam Present: supple - Routine Respiratory Exam Present: CTA bilaterally - Routine Cardiovascular Exam Present: RRR, S1, S2 - Routine Abdominal Exam Present: soft, normoactive bowel sounds - Routine Extremities Exam Present: vascular access Comments: right forearm - Routine Skin Exam Present: intact - Routine Neurological Exam Present: alert, oriented X3 (Patient with boot on the left foot. ) Results - Labs Result Diagrams: 01/28/18 11:30 01/30/18 07:08 Abnormal lab results 01/28/18 01/29/18 01/30/18 Range/Units 16:12 21:08 07:08 BUN 31 H (7-18) mg/dL Creatinine 3.26 H (0.60-1.30) mg/dL Estimated GFR 22 L (>89) mL/min POC Glucose 130 H 122 H (68-110) mg/dl Random Glucose 428 H D (74-106) mg/dL Calcium 7.2 L* (8.5-10.1) mg/dL Prot Corrected Calcium 8.4 L (8.5-10.1) mg/dL Total Protein 4.9 L (6.4-8.2) g/dL 01/30/18 01/30/18 01/30/18 Range/Units 08:17 11:10 16:31 BUN (7-18) mg/dL Creatinine (0.60-1.30) mg/dL Estimated GFR (>89) mL/min POC Glucose 407 H 285 H 48 L* (68-110) mg/dl Random Glucose (74-106) mg/dL Calcium (8.5-10.1) mg/dL Prot Corrected Calcium (8.5-10.1) mg/dL Total Protein (6.4-8.2) g/dL 01/30/18 Range/Units 18:40 BUN (7-18) mg/dL Creatinine (0.60-1.30) mg/dL Estimated GFR (>89) mL/min POC Glucose 137 H (68-110) mg/dl Random Glucose (74-106) mg/dL Calcium (8.5-10.1) mg/dL Prot Corrected Calcium (8.5-10.1) mg/dL Total Protein (6.4-8.2) g/dL Diabetes panel 01/30/18 Range/Units 07:08 Sodium 139 (136-145) meq/L Potassium 3.6 (3.5-5.1) meq/L Chloride 101 (98-107) meq/L Carbon Dioxide 25.2 (21.0-32.0) meq/L BUN 31 H (7-18) mg/dL Creatinine 3.26 H (0.60-1.30) mg/dL Calcium 7.2 L* (8.5-10.1) mg/dL Total Protein 4.9 L (6.4-8.2) g/dL Calcium panel 01/30/18 Range/Units 07:08 Calcium 7.2 L* (8.5-10.1) mg/dL Pituitary panel 01/30/18 Range/Units 07:08 Sodium 139 (136-145) meq/L Potassium 3.6 (3.5-5.1) meq/L Chloride 101 (98-107) meq/L Carbon Dioxide 25.2 (21.0-32.0) meq/L BUN 31 H (7-18) mg/dL Creatinine 3.26 H (0.60-1.30) mg/dL Calcium 7.2 L* (8.5-10.1) mg/dL Adrenal panel 01/30/18 Range/Units 07:08 Sodium 139 (136-145) meq/L Potassium 3.6 (3.5-5.1) meq/L Chloride 101 (98-107) meq/L Carbon Dioxide 25.2 (21.0-32.0) meq/L BUN 31 H (7-18) mg/dL Creatinine 3.26 H (0.60-1.30) mg/dL Calcium 7.2 L* (8.5-10.1) mg/dL Total Protein 4.9 L (6.4-8.2) g/dL Assessment and Plan - Assessment (1) Chronic kidney disease, stage 4, severely decreased GFR Code(s): N18.4 - Chronic kidney disease, stage 4 (severe) Status: Acute (2) Lactose intolerance in adult Code(s): E73.9 - Lactose intolerance, unspecified Status: Acute (3) Diabetes type 1, uncontrolled Code(s): E10.65 - Type 1 diabetes mellitus with hyperglycemia Status: Acute Qualifiers: Diabetes mellitus complication detail: without coma (4) Diabetic peripheral neuropathy Code(s): E11.42 - Type 2 diabetes mellitus with diabetic polyneuropathy Status : Acute (5) Presence of insulin pump Code(s): Z96.41 - Presence of insulin pump (external) (internal) Status: Acute (6) DKA, type 1 Code(s): E10.10 - Type 1 diabetes mellitus with ketoacidosis without coma Status: Acute Qualifiers: Diabetes mellitus complication detail: without coma Qualified Code(s): E10.10 - Type 1 diabetes mellitus with ketoacidosis without coma - Plan Insulin pump setting reviewed. At this point recommend to adjust insulin as floolowss Levemir insulin 12 units BID with Novolog insulin 5 units AC TID with low dose insulin sliding scale. Also recommend to stop Glucerna. If needed patient is used to use boost at home which he is able to tolerate better. I have discussed the need for a consistent carb diet with the patient while he is in the hospital with no access to his pump supplies. We have agreed he is going to be ordering 4 carb servings per meal. Recommend to only use non-carbohydrate snacks in between his meals. Once he goes home he will be able to go back on his pump. For now will recommend the same pump settings. He is being followed by his government program manager near [place]. I have taken the liberty to enter the orders. Thank you for allowing me to participate in the medical management of this interesting patient.
[2018-01-31] MEDS: Chlorhexidine Gluconate 2% 1 Pack (2 Cloths) TOPICAL SCH (03:49)
[2018-01-31] MEDS: Insulin Detemir Inj 1,000 UNIT/10 ML Vial SQ SCH ×3 (06:37→21:19)
[2018-01-31] MEDS: Insulin NovoLOG Aspart Correctional Sugar Inj SQ SCH ×5 (08:00→21:19)
[2018-01-31] MEDS: Loratadine 10 MG Tablet PO SCH (08:16)
[2018-01-31] MEDS ORDERED: Insulin Detemir Inj 1,000 UNIT/10 ML Vial SQ SCH (09:00)
[2018-01-31] MEDS: hydrALAZINE 50 MG Tablet PO SCH ×3 (10:32→17:07)
[2018-01-31 10:36] LABS: Calcium 7.7 mg/dL (8.5-10.1); Carbon Dioxide 25.3 meq/L (21.0-32.0); Potassium 3.1 meq/L (3.5-5.1)
--- NOTE | 2018-01-31 16:58 | P.PN ---
Subjective Interval history: patient awake and alert feels well no complains up and ambulating around his room Physical Exam Vital signs: Vital Signs 01/30/18 17:00 01/30/18 18:00 01/30/18 19:00 Temperature Pulse Rate 81 96 H 87 Respiratory Rate 17 1 L 9 L Blood Pressure 130/78 131/81 111/67 Pulse Oximetry 97 01/30/18 20:00 01/30/18 21:00 01/30/18 22:00 Temperature 98.3 F Pulse Rate 82 78 84 Respiratory Rate 16 14 12 Blood Pressure 122/75 130/79 135/82 Pulse Oximetry 95 01/30/18 23:00 01/31/18 00:00 01/31/18 01:00 Temperature Pulse Rate 85 78 84 Respiratory Rate 10 L 14 29 H Blood Pressure 123/78 Pulse Oximetry 97 98 97 01/31/18 02:00 01/31/18 03:00 01/31/18 03:44 Temperature Pulse Rate 80 75 79 Respiratory Rate 10 L 12 12 Blood Pressure 178/102 H Pulse Oximetry 93 L 95 98 01/31/18 03:45 01/31/18 04:00 01/31/18 05:00 Temperature 97.6 F Pulse Rate 80 95 H 76 Respiratory Rate 14 29 H 15 Blood Pressure 185/109 H 150/86 H 193/110 H Pulse Oximetry 99 98 98 01/31/18 05:01 01/31/18 05:04 01/31/18 05:30 Temperature Pulse Rate 79 78 75 Respiratory Rate 20 8 L 14 Blood Pressure 190/108 H 229/115 H 238/116 H Pulse Oximetry 100 100 100 01/31/18 05:32 01/31/18 06:00 01/31/18 06:13 Temperature Pulse Rate 78 75 74 Respiratory Rate 12 12 11 L Blood Pressure 184/106 H 193/111 H 185/112 H Pulse Oximetry 100 100 98 01/31/18 06:30 01/31/18 07:00 01/31/18 07:24 Temperature Pulse Rate 80 74 74 Respiratory Rate 14 9 L 6 L Blood Pressure 204/111 H 202/109 H 200/109 H Pulse Oximetry 99 100 100 01/31/18 07:30 01/31/18 08:00 01/31/18 09:00 Temperature 98.6 F Pulse Rate 74 79 106 H Respiratory Rate 10 L Blood Pressure 200/112 H 202/112 H Pulse Oximetry 100 100 01/31/18 10:00 01/31/18 12:00 01/31/18 14:00 Temperature 98.5 F Pulse Rate 106 H 70 85 Respiratory Rate 12 Blood Pressure 151/97 H Pulse Oximetry 100 Intake & Output 01/30/18 01/31/18 01/31/18 18:59 06:59 18:59 Intake Total 950 / 950 960 / 960 Output Total 1300 / 1300 2800 / 2800 Balance -350 / -350 -1840 / -1840 Weight 80.8 kg Intake: Oral 950 / 950 960 / 960 Output: Urine 1300 / 1300 2800 / 2800 Other: Date of Last Bowel Movement 01/29/18 01/29/18 01/29/18 Narrative: awake and alert, oriented x 3 anicteric moist oral mucosa neck supple lungs- no rales regular rhythm abdomen soft, nontender no calf swelling or tenderness left heel- superficial ulcer, edges clean, minimal drainage on gauze good peripheral pulses Results - Labs CBC & Chem 7: 01/28/18 11:30 01/31/18 08:52 Laboratory Results - last 24 hr 01/30/18 01/30/18 01/31/18 18:40 21:05 06:35 Sodium Potassium Chloride Carbon Dioxide Anion Gap BUN Creatinine Estimated GFR POC Glucose 137 H 234 H 361 H Random Glucose Calcium 01/31/18 01/31/18 01/31/18 08:03 08:52 12:10 Sodium 142 Potassium 3.1 L Chloride 104 Carbon Dioxide 25.3 Anion Gap 13 BUN 37 H Creatinine 3.55 H Estimated GFR 20 L POC Glucose 350 H 54 L Random Glucose 284 H D Calcium 7.7 L 01/31/18 01/31/18 12:39 16:26 Sodium Potassium Chloride Carbon Dioxide Anion Gap BUN Creatinine Estimated GFR POC Glucose 97 51 L Random Glucose Calcium Microbiology 01/26/18 04:50 Blood - Peripheral Aerobic Blood Culture - Final Staphylococcus epidermidis 01/26/18 04:50 Blood - Peripheral Anaerobic Blood Culture - Final No growth in 5 days 01/26/18 05:00 Blood - Peripheral Aerobic Blood Culture - Final No growth in 5 days 01/26/18 05:00 Blood - Peripheral Anaerobic Blood Culture - Final No growth in 5 days Assessment and Plan - Plan 37yM with ESRD and DKA, likely secondary to foot cellulitis. S/P DKA- anion gap down - BS - good readings - off drip since yesterday - started on Levemer at 10 units SQ q am - monitor qd with worsening renal functions (was on 15 units Bid and had hypoglycemic readings)- - d/w patient- he got an insulin pump - ff with an [employer] soa developer in [place]- he does not know his basal rate does not have supplies here " he- MD takes care of everything" - contiueto monitor and adjust - consulted our oracle soa developer for recommendation Acute on CKD V likely from diabetic nephropathy- non oliguric - at one point was on HD - Right AVF in place- good thrill - renal ff- no need for HD at this time, non oliguric, creatinine stabilizing- likely baseline - off HCO3 drip Hypokalemia - off HC03 drip - replaced this am, give another dose tonite 20 meq po -recheck in am Hypertension- still some elevated readings - denies any history - at one point was on BESSIE but mainly for renal protection- was DC as OP with worsening renal funciton - requested ECho-pending - clonidine prn - - Increase Procardia to 90 mg XL daily - increase Hydralazine to 50 mg tid - DC IVF - taking po well Left plantar ulcer - growing S aureus Blood culture - 07/27 + - lilly contaminant Seen by Podiatry - local wound care ordered seen by Dr. Gama - Vancomycin DC History of DVT Eliquis 5 mg po bid - home dose + Nausea- resolved - Zofran prn - PPI SCDs Transfer to medical floor Increase activity- out of bed to chair for all meals- states he has been getting around his room patient states ambulatory with a cane. He states he got a walker at home but does not use it- "no space to move around with it"
--- NOTE | 2018-01-31 18:42 | P.PNNP ---
Subjective Interval history: Patient seen in AM, alert, no SOB, mild nausea, not in distress. Physical Exam Vital signs: Vital Signs 01/30/18 19:00 01/30/18 20:00 01/30/18 21:00 Temperature 98.3 F Pulse Rate 87 82 78 Respiratory Rate 9 L 16 14 Blood Pressure 111/67 122/75 130/79 Pulse Oximetry 95 01/30/18 22:00 01/30/18 23:00 01/31/18 00:00 Temperature Pulse Rate 84 85 78 Respiratory Rate 12 10 L 14 Blood Pressure 135/82 123/78 Pulse Oximetry 97 98 01/31/18 01:00 01/31/18 02:00 01/31/18 03:00 Temperature Pulse Rate 84 80 75 Respiratory Rate 29 H 10 L 12 Blood Pressure Pulse Oximetry 97 93 L 95 01/31/18 03:44 01/31/18 03:45 01/31/18 04:00 Temperature 97.6 F Pulse Rate 79 80 95 H Respiratory Rate 12 14 29 H Blood Pressure 178/102 H 185/109 H 150/86 H Pulse Oximetry 98 99 98 01/31/18 05:00 01/31/18 05:01 01/31/18 05:04 Temperature Pulse Rate 76 79 78 Respiratory Rate 15 20 8 L Blood Pressure 193/110 H 190/108 H 229/115 H Pulse Oximetry 98 100 100 01/31/18 05:30 01/31/18 05:32 01/31/18 06:00 Temperature Pulse Rate 75 78 75 Respiratory Rate 14 12 12 Blood Pressure 238/116 H 184/106 H 193/111 H Pulse Oximetry 100 100 100 01/31/18 06:13 01/31/18 06:30 01/31/18 07:00 Temperature Pulse Rate 74 80 74 Respiratory Rate 11 L 14 9 L Blood Pressure 185/112 H 204/111 H 202/109 H Pulse Oximetry 98 99 100 01/31/18 07:24 01/31/18 07:30 01/31/18 08:00 Temperature 98.6 F Pulse Rate 74 74 79 Respiratory Rate 6 L 10 L Blood Pressure 200/109 H 200/112 H 202/112 H Pulse Oximetry 100 100 100 01/31/18 09:00 01/31/18 10:00 01/31/18 12:00 Temperature 98.5 F Pulse Rate 106 H 106 H 70 Respiratory Rate 12 Blood Pressure 151/97 H Pulse Oximetry 100 01/31/18 14:00 01/31/18 16:00 01/31/18 18:00 Temperature 98.0 F Pulse Rate 85 80 78 Respiratory Rate 16 Blood Pressure 104/62 Pulse Oximetry 97 Intake & Output 01/30/18 01/31/18 01/31/18 18:59 06:59 18:59 Intake Total 950 / 950 960 / 960 1680 / 1680 Output Total 1300 / 1300 2800 / 2800 2250 / 2250 Balance -350 / -350 -1840 / -1840 -570 / -570 Weight 80.8 kg Intake: Oral 950 / 950 960 / 960 1680 / 1680 Output: Urine 1300 / 1300 2800 / 2800 2250 / 2250 Other: Date of Last Bowel Movement 01/29/18 01/29/18 01/29/18 - Constitutional no acute distress - Routine HEENT Exam Head: Present: normocephalic ENT: Present: mucous membranes moist - Routine Neck Exam Present: supple - Routine Cardiovascular Exam Present: RRR, S1, S2 - Routine Abdominal Exam Present: soft, normoactive bowel sounds, distended - Routine Extremities Exam Present: edema - Routine Neurological Exam Present: alert, oriented X3 Assessment and Plan - Assessment (1) Chronic kidney disease, stage 4, severely decreased GFR Code(s): N18.4 - Chronic kidney disease, stage 4 (severe) Status: Acute (2) DKA, type 1 Code(s): E10.10 - Type 1 diabetes mellitus with ketoacidosis without coma Status: Acute Qualifiers: Diabetes mellitus complication detail: without coma Qualified Code(s): E10.10 - Type 1 diabetes mellitus with ketoacidosis without coma - Plan Acute kidney injury with Stage 4 Chronic kidney disease: Acute kidney injury on CKD Creatinine continue to improve. He has AVF done and has stage 4 chronic kidney disease. Has underlying chronic kidney disease is likely due to diabetic nephropathy. He is followed by [employer] Rep[employer] Technician Dr. Garsia in [place]. Suspect is his baseline 3.4-3.7. He has a AVF in right lower arm with good thrill and bruit. Per patient not ready for use, however not followed for maturation. (may evaluate for maturity as an outpatient - excellent thrill, AVF [place] [address] Finn. Creatinine increased slightly to 3.5, K is low and replaced. HC03 is normalized. Hypokalemia resolved Urinary output excellent Will monitor urinary output and BMP Maintain strict I+O and avoid nephrotoxic agents. No need for dialysis at this time DKA Blood sugars have improved. Off insulin gtt Hypertensive Blood pressure labile and high at times. Procardia increased today.
[2018-02-01 07:06] LABS: Calcium 7.5 mg/dL (8.5-10.1); Carbon Dioxide 26.5 meq/L (21.0-32.0); Potassium 3.1 meq/L (3.5-5.1)
[2018-02-01] MEDS: Dextrose 50% in Water 50 ML Vial IV.PUSH PRN (07:15)
[2018-02-01] MEDS: Loratadine 10 MG Tablet PO SCH (08:50)
[2018-02-01] MEDS: hydrALAZINE 50 MG Tablet PO SCH ×3 (08:50→17:31)
[2018-02-01] MEDS: Insulin Detemir Inj 1,000 UNIT/10 ML Vial SQ SCH (08:51)
[2018-02-01] MEDS ORDERED: Potassium Chloride 25 MEQ Effervescent Tablet PO ONE (10:34)
--- NOTE | 2018-02-01 12:29 | P.PN ---
Subjective Interval history: no complains - good po intake over 100% no nausea or vomiting voiding no apin complaints rviewed BS readings low sugar readings kasandra a40- symptomatic Physical Exam Vital signs: Vital Signs 01/31/18 12:30 01/31/18 13:00 01/31/18 13:30 Temperature Pulse Rate 83 99 H 91 H Respiratory Rate 17 20 17 Blood Pressure 126/71 120/81 122/81 Pulse Oximetry 99 99 100 01/31/18 14:00 01/31/18 14:30 01/31/18 15:00 Temperature Pulse Rate 85 91 H 79 Respiratory Rate 21 18 16 Blood Pressure 119/73 130/87 109/66 Pulse Oximetry 92 L 92 L 98 01/31/18 15:30 01/31/18 16:00 01/31/18 16:30 Temperature 98.0 F Pulse Rate 78 80 90 Respiratory Rate 21 16 19 Blood Pressure 113/75 104/62 112/71 Pulse Oximetry 95 97 96 01/31/18 17:00 01/31/18 17:30 01/31/18 18:00 Temperature Pulse Rate 81 78 78 Respiratory Rate 0 L 14 15 Blood Pressure 117/73 118/74 115/72 Pulse Oximetry 97 97 98 01/31/18 18:30 01/31/18 19:00 01/31/18 19:30 Temperature Pulse Rate 97 H 84 82 Respiratory Rate 21 16 4 L Blood Pressure 119/76 121/79 118/70 Pulse Oximetry 97 100 99 01/31/18 20:00 01/31/18 20:30 01/31/18 21:00 Temperature 98.2 F Pulse Rate 77 74 75 Respiratory Rate 17 16 11 L Blood Pressure 141/86 H 152/94 H 144/93 H Pulse Oximetry 100 100 99 01/31/18 21:30 01/31/18 22:00 01/31/18 22:30 Temperature Pulse Rate 80 80 80 Respiratory Rate 20 15 16 Blood Pressure 142/93 H 147/92 H 139/86 Pulse Oximetry 98 100 98 01/31/18 23:00 02/01/18 00:00 02/01/18 01:00 Temperature 98.1 F Pulse Rate 77 76 73 Respiratory Rate 18 18 12 Blood Pressure 137/92 H 141/86 H 132/85 Pulse Oximetry 99 95 100 02/01/18 02:00 02/01/18 03:00 02/01/18 04:00 Temperature 98.4 F Pulse Rate 79 74 95 H Respiratory Rate 9 L 12 14 Blood Pressure 141/87 H 130/81 141/71 H Pulse Oximetry 98 99 99 02/01/18 05:00 02/01/18 06:00 02/01/18 08:00 Temperature 97.7 F Pulse Rate 94 H 79 90 Respiratory Rate 17 11 L 21 Blood Pressure 133/71 135/80 136/80 Pulse Oximetry 95 95 02/01/18 09:00 Temperature Pulse Rate 86 Respiratory Rate Blood Pressure Pulse Oximetry Intake & Output 01/31/18 02/01/18 02/01/18 18:59 06:59 18:59 Intake Total 1680 / 1680 480 / 480 Output Total 2250 / 2250 960 / 960 Balance -570 / -570 -480 / -480 Weight 82.7 kg Intake: Oral 1680 / 1680 480 / 480 Output: Urine 2250 / 2250 960 / 960 Other: Date of Last Bowel Movement 01/29/18 01/29/18 01/29/18 Narrative: awake and alert, oriented x 3 anicteric moist oral mucosa neck supple lungs- no rales regular rhythm abdomen soft, nontender no calf swelling or tenderness left heel- superficial ulcer, edges clean, minimal drainage on gauze good peripheral pulses Results - Labs CBC & Chem 7: 01/28/18 11:30 02/01/18 06:05 Laboratory Results - last 24 hr 01/31/18 01/31/18 01/31/18 12:39 16:26 16:55 Sodium Potassium Chloride Carbon Dioxide Anion Gap BUN Creatinine Estimated GFR POC Glucose 97 51 L 77 Random Glucose Calcium 01/31/18 02/01/18 02/01/18 21:01 06:05 07:46 Sodium 145 Potassium 3.1 L Chloride 108 H Carbon Dioxide 26.5 Anion Gap 11 BUN 39 H Creatinine 3.42 H Estimated GFR 21 L POC Glucose 138 H 162 H Random Glucose 40 L* D Calcium 7.5 L 02/01/18 02/01/18 02/01/18 10:31 11:28 12:17 Sodium Potassium Chloride Carbon Dioxide Anion Gap BUN Creatinine Estimated GFR POC Glucose 223 H 136 H 113 H Random Glucose Calcium Microbiology 01/26/18 04:50 Blood - Peripheral Aerobic Blood Culture - Final Staphylococcus epidermidis 01/26/18 04:50 Blood - Peripheral Anaerobic Blood Culture - Final No growth in 5 days 01/26/18 05:00 Blood - Peripheral Aerobic Blood Culture - Final No growth in 5 days 01/26/18 05:00 Blood - Peripheral Anaerobic Blood Culture - Final No growth in 5 days Assessment and Plan - Plan 37yM with ESRD and DKA, likely secondary to foot cellulitis. S/P DKA- anion gap down - BS - good readings - off drip - BS 113- low 200, this am 40 - symptomatic- diaphoretic- got D50 - change Levemer to once daily q am- 8units SQ - monitor qd with worsening renal functions (was on 15 units Bid and had hypoglycemic readings)- - d/w patient- he got an insulin pump - ff with an broomcorn press feeder in [place]- he does not know his basal rate does not have supplies here " he- MD takes care of everything" - contiue to monitor and adjust - endocrinology ff Acute on CKD V likely from diabetic nephropathy- non oliguric - at one point was on HD - Right AVF in place- good thrill - renal ff- no need for HD at this time, non oliguric, creatinine stabilizing- likely baseline - off HCO3 drip Persistent Hypokalemia - off HC03 drip - givwe 50 meq potassium now - start 10 meq KCL bid - check in am Hypertension- still some elevated readings - denies any history - at one point was on BESSIE but mainly for renal protection- was DC as OP with worsening renal funciton - requested ECho-pending - clonidine prn - - Increase Procardia to 90 mg XL daily - increase Hydralazine to 50 mg tid - DC IVF - taking po well Left plantar ulcer - growing S aureus Blood culture - 07/27 + - lilly contaminant Seen by Podiatry - local wound care ordered seen by Dr. Gama - Vancomycin DC History of DVT Eliquis 5 mg po bid - home dose + Nausea- resolved secondary to DKA -now with good po intake - PPI Transfer to medical floor Increase activity- out of bed to chair for all meals- states he has been getting around his room patient states ambulatory with a cane. He states he got a walker at home but does not use it- "no space to move around with it"
[2018-02-01] MEDS: Insulin NovoLOG Aspart Correctional Sugar Inj SQ SCH ×4 (12:37→20:29)
--- NOTE | 2018-02-01 17:27 | P.PNNP ---
Subjective Interval history: Creatinine is stable at 3.42 today with good urinary output. No shortness of breath or edema. <Jazlyn De Anda - Last Filed: 02/01/18 17:24> Physical Exam Vital signs: Vital Signs 01/31/18 17:30 01/31/18 18:00 01/31/18 18:30 Temperature Pulse Rate 78 78 97 H Respiratory Rate 14 15 21 Blood Pressure 118/74 115/72 119/76 Pulse Oximetry 97 98 97 01/31/18 19:00 01/31/18 19:30 01/31/18 20:00 Temperature 98.2 F Pulse Rate 84 82 77 Respiratory Rate 16 4 L 17 Blood Pressure 121/79 118/70 141/86 H Pulse Oximetry 100 99 100 01/31/18 20:30 01/31/18 21:00 01/31/18 21:30 Temperature Pulse Rate 74 75 80 Respiratory Rate 16 11 L 20 Blood Pressure 152/94 H 144/93 H 142/93 H Pulse Oximetry 100 99 98 01/31/18 22:00 01/31/18 22:30 01/31/18 23:00 Temperature Pulse Rate 80 80 77 Respiratory Rate 15 16 18 Blood Pressure 147/92 H 139/86 137/92 H Pulse Oximetry 100 98 99 02/01/18 00:00 02/01/18 01:00 02/01/18 02:00 Temperature 98.1 F Pulse Rate 76 73 79 Respiratory Rate 18 12 9 L Blood Pressure 141/86 H 132/85 141/87 H Pulse Oximetry 95 100 98 02/01/18 03:00 02/01/18 04:00 02/01/18 05:00 Temperature 98.4 F Pulse Rate 74 95 H 94 H Respiratory Rate 12 14 17 Blood Pressure 130/81 141/71 H 133/71 Pulse Oximetry 99 99 95 02/01/18 06:00 02/01/18 08:00 02/01/18 09:00 Temperature 97.7 F Pulse Rate 79 90 86 Respiratory Rate 11 L 21 Blood Pressure 135/80 136/80 Pulse Oximetry 95 02/01/18 12:00 02/01/18 16:00 Temperature 97.9 F 98.7 F Pulse Rate 82 95 H Respiratory Rate 16 23 Blood Pressure 142/90 H 134/76 Pulse Oximetry 99 99 Intake & Output 01/31/18 02/01/18 02/01/18 18:59 06:59 18:59 Intake Total 1680 / 1680 480 / 480 Output Total 2250 / 2250 960 / 960 Balance -570 / -570 -480 / -480 Weight 82.7 kg Intake: Oral 1680 / 1680 480 / 480 Output: Urine 2250 / 2250 960 / 960 Other: Date of Last Bowel Movement 01/29/18 01/29/18 01/29/18 - Constitutional no acute distress - Routine HEENT Exam Head: Present: normocephalic - Routine Neck Exam Present: supple. Absent: JVD - Routine Respiratory Exam Present: decreased breath sounds. Absent: rales, rhonchi, crackles - Routine Cardiovascular Exam Present: RRR - Routine Abdominal Exam Present: soft, normoactive bowel sounds Comments: flat - Routine Extremities Exam Present: AV fistula - Routine Skin Exam Present: dry, warm - Routine Neurological Exam Present: alert, oriented X3 <Saurabhlermann,Jazlyn - Last Filed: 02/01/18 17:24> Vital signs: Vital Signs 01/31/18 18:00 01/31/18 18:30 01/31/18 19:00 Temperature Pulse Rate 78 97 H 84 Respiratory Rate 15 21 16 Blood Pressure 115/72 119/76 121/79 Pulse Oximetry 98 97 100 01/31/18 19:30 01/31/18 20:00 01/31/18 20:30 Temperature 98.2 F Pulse Rate 82 77 74 Respiratory Rate 4 L 17 16 Blood Pressure 118/70 141/86 H 152/94 H Pulse Oximetry 99 100 100 01/31/18 21:00 01/31/18 21:30 01/31/18 22:00 Temperature Pulse Rate 75 80 80 Respiratory Rate 11 L 20 15 Blood Pressure 144/93 H 142/93 H 147/92 H Pulse Oximetry 99 98 100 01/31/18 22:30 01/31/18 23:00 02/01/18 00:00 Temperature 98.1 F Pulse Rate 80 77 76 Respiratory Rate 16 18 18 Blood Pressure 139/86 137/92 H 141/86 H Pulse Oximetry 98 99 95 02/01/18 01:00 02/01/18 02:00 02/01/18 03:00 Temperature Pulse Rate 73 79 74 Respiratory Rate 12 9 L 12 Blood Pressure 132/85 141/87 H 130/81 Pulse Oximetry 100 98 99 02/01/18 04:00 02/01/18 05:00 02/01/18 06:00 Temperature 98.4 F Pulse Rate 95 H 94 H 79 Respiratory Rate 14 17 11 L Blood Pressure 141/71 H 133/71 135/80 Pulse Oximetry 99 95 02/01/18 08:00 02/01/18 09:00 02/01/18 12:00 Temperature 97.7 F 97.9 F Pulse Rate 90 86 82 Respiratory Rate 21 16 Blood Pressure 136/80 142/90 H Pulse Oximetry 95 99 02/01/18 16:00 Temperature 98.7 F Pulse Rate 95 H Respiratory Rate 23 Blood Pressure 134/76 Pulse Oximetry 99 Intake & Output 01/31/18 02/01/18 02/01/18 18:59 06:59 18:59 Intake Total 1680 / 1680 480 / 480 Output Total 2250 / 2250 960 / 960 Balance -570 / -570 -480 / -480 Weight 82.7 kg Intake: Oral 1680 / 1680 480 / 480 Output: Urine 2250 / 2250 960 / 960 Other: Date of Last Bowel Movement 01/29/18 01/29/18 01/29/18 <Bay Gifford - Last Filed: 02/01/18 17:59> Assessment and Plan - Assessment (1) Chronic kidney disease, stage 4, severely decreased GFR Code(s): N18.4 - Chronic kidney disease, stage 4 (severe) Status: Acute (2) DKA, type 1 Code(s): E10.10 - Type 1 diabetes mellitus with ketoacidosis without coma Status: Acute Qualifiers: Diabetes mellitus complication detail: without coma Qualified Code(s): E10.10 - Type 1 diabetes mellitus with ketoacidosis without coma - Plan Acute kidney injury with Stage 4 Chronic kidney disease: Acute kidney injury on CKD Creatinine continue to improve. He has AVF done and has stage 4 chronic kidney disease. Has underlying chronic kidney disease is likely due to diabetic nephropathy. He is followed by Technology Project Manager Dr. Garsia in [place]. Suspect is his baseline 3.4-3.7. He has a AVF in right lower arm with good thrill and bruit. Per patient not ready for use, however not followed for maturation. (may evaluate for maturity as an outpatient - excellent thrill, AVF [place] [address] Finn. Creatinine at baseline at 3.42 HC03 is normalized. Hypokalemia with replacement given Urinary output excellent Will monitor urinary output and BMP Maintain strict I+O and avoid nephrotoxic agents. No need for dialysis at this time DKA Blood sugars have improved. Off insulin gtt Hypertensive Blood pressure has improved. Will monitor <Jazlyn De Anda - Last Filed: 02/01/18 17:24> - Assessment (1) Chronic kidney disease, stage 4, severely decreased GFR Code(s): N18.4 - Chronic kidney disease, stage 4 (severe) Status: Acute (2) DKA, type 1 Code(s): E10.10 - Type 1 diabetes mellitus with ketoacidosis without coma Status: Acute Qualifiers: Diabetes mellitus complication detail: without coma Qualified Code(s): E10.10 - Type 1 diabetes mellitus with ketoacidosis without coma - Attending Attestation Patient seen and examined, agree with above. Creatinine is stable, at his baseline. BS is labile, to follow. <Bay Gifford - Last Filed: 02/01/18 17:59>
[2018-02-02] MEDS: Insulin Detemir Inj 1,000 UNIT/10 ML Vial SQ SCH ×2 (07:54→12:55)
[2018-02-02] MEDS: Insulin NovoLOG Aspart Correctional Sugar Inj SQ SCH ×3 (07:55→18:39)
[2018-02-02] MEDS: Loratadine 10 MG Tablet PO SCH (08:01)
[2018-02-02] MEDS: hydrALAZINE 50 MG Tablet PO SCH ×3 (08:01→18:38)
[2018-02-02 12:14] LABS: Calcium 7.5 mg/dL (8.5-10.1); Carbon Dioxide 21.8 meq/L (21.0-32.0); Potassium 4.4 meq/L (3.5-5.1)
--- NOTE | 2018-02-02 13:17 | P.DIET ---
Nutritional Evaluation Type of nutrition evaluation: follow-up Nutrition screening: Weight Loss > 10 lbs Subjective Subjective Comments: Pt states he would like more food, says he is eating 100% of his meals. Objective - Diagnosis Nausea/Vomiting - Objective % IBW: 88 Body Weight Used for Calculations: Actual Energy Needs - Lower Range (kCal/kg): 28 Energy Needs - Upper Range (kCal/kg): 33 Lower Limit kCal/kg (kCals): 1,778 Upper Limit kCal/kg (kCals): 2,096 Lower Limit Protein Factor (Grams per Kg): 1.1 Upper Limit Protein Factor (Grams per Kg): 1.5 Lower Protein Needs (Protein): 70 Upper Protein Needs (Protein): 95 Fluid Factor (ml/kg): 33 Estimated Fluid Needs (ml): 2,096 Dietitian Reviewed in Medical Record: Current diet, Curent medications, Intake & Output, Labs, Wound/DTI Diet Order: 1800 ADA 2gmNA Oral Diet Intake Amount: Excellent 90%+ Objective Comments: Nutritional needs based on 63.5kg PMH: AVF, CKD Stage IV, Depression, T1DM, Retinopathy, Neuropathy, Diabetic Ulcer of the heel, DVT, HTN Assessment Assessment: Pt at nutritional risk r/t dx. Admitted in DKA. Reports recent wt loss, appetite good. Pt is currently eating 100% of his meals and requests more food. Will provide double portions of protein. Pt's nutritional needs as assessed above. Request increasing calorie level to 2000 ADA to better meet pt's needs. Pt with L plantar heel ulcer, no bone involvement, no infection, no surgical intervention necessary per help desk consultant. Will monitor clinical course. Recommendations: Request increasing calories to 2000 ADA to better meet pt's nutritional needs. Pt refuses Glucerna shakes Will provide double portions protein Dietitian following Dietitian to Monitor: Lab values, Glucose level, Diet tolerance, PO Intake, Wound/skin status, Medical course
--- NOTE | 2018-02-02 17:53 | P.PN ---
Subjective Interval history: doing great- po great states he manages- own Insulin pump- set up to ff up with his charger tester inDr. [place] Physical Exam Vital signs: Vital Signs 02/01/18 20:00 02/02/18 00:00 02/02/18 04:00 Temperature 98.4 F 98.5 F 98.4 F Pulse Rate 92 H 98 H 94 H Respiratory Rate 18 24 24 Blood Pressure 114/67 122/67 151/86 H Pulse Oximetry 97 99 02/02/18 08:00 02/02/18 09:00 02/02/18 12:00 Temperature 98.5 F 98.5 F Pulse Rate 93 H 93 H 89 Respiratory Rate 21 15 Blood Pressure 171/71 H 134/68 Pulse Oximetry 100 100 02/02/18 16:00 02/02/18 17:49 Temperature 98.3 F Pulse Rate 101 H Respiratory Rate 18 Blood Pressure 136/72 Pulse Oximetry 100 96 Intake & Output 02/01/18 02/02/18 02/02/18 18:59 06:59 18:59 Intake Total 3823 / 3823 200 / 200 Output Total 1800 / 1800 1350 / 1350 Balance 2022 / 2022 -1150 / -1150 Weight 83.4 kg Intake: Oral 1500 / 1500 Other 2323 / 2323 200 / 200 Output: Urine 1800 / 1800 1350 / 1350 Stool 0 / 0 0 / 0 Other: Other Intake Source Saline Solution # Voids 4 3 Date of Last Bowel Movement 01/31/18 01/31/18 01/31/18 # Bowel Movements 0 0 Narrative: awake and alert, oriented x 3 anicteric moist oral mucosa neck supple lungs- no rales regular rhythm abdomen soft, nontender no calf swelling or tenderness left heel- superficial ulcer, edges clean, minimal drainage on gauze good peripheral pulses Results - Labs CBC & Chem 7: 01/28/18 11:30 02/02/18 10:45 Laboratory Results - last 24 hr 02/01/18 02/02/18 02/02/18 20:17 07:47 07:49 Sodium Potassium Chloride Carbon Dioxide Anion Gap BUN Creatinine Estimated GFR POC Glucose 341 H 519 H* 449 H Random Glucose Calcium 02/02/18 02/02/18 02/02/18 10:45 11:53 15:38 Sodium 138 Potassium 4.4 D Chloride 106 Carbon Dioxide 21.8 Anion Gap 10 BUN 50 H Creatinine 3.78 H Estimated GFR 18 L POC Glucose 159 H 73 Random Glucose 204 H D Calcium 7.5 L Assessment and Plan - Plan 37yM with ESRD and DKA, likely secondary to foot cellulitis. S/P DKA- anion gap down - BS - good readings - off drip - gap down 10 - BS 113- low 200, this am 40 - symptomatic- diaphoretic- got D50 - change Levemer to once daily q am- 8units SQ - monitor qd with worsening renal functions (was on 15 units Bid and had hypoglycemic readings)- - d/w patient- he got an insulin pump - ff with an charger tester in - he does not know his basal rate does not have supplies here " he- MD takes care of everything" - contiue to monitor and adjust - endocrinology ff- as OP- in [place] Acute on CKD V likely from diabetic nephropathy- non oliguric - at one point was on HD - Right AVF in place- good thrill - renal ff- no need for HD at this time, non oliguric, creatinine stabilizing- likely baseline - off HCO3 drip Hypokalemia- resolved - off HC03 drip - givwe 50 meq potassium now - 10 meq po bid Hypertension- improved - denies any history - at one point was on BESSIE but mainly for renal protection- was DC as OP with worsening renal funciton - requested ECho EF 60-65 % minimal pericardial effusion, mild TR, - clonidine prn - - Increase Procardia to 90 mg XL daily - increase Hydralazine to 50 mg tid - DC IVF - taking po well Left plantar ulcer - growing S aureus Blood culture - 07/27 + - lilly contaminant Seen by Podiatry - local wound care ordered seen by Dr. Gama - Vancomycin DC History of DVT Eliquis 5 mg po bid - home dose + Nausea- resolved secondary to DKA -now with good po intake - PPI home today
--- NOTE | 2018-02-02 17:54 | P.DS ---
Date of admission: 01/26/18 06:01 Primary care physician: Brittany Lovelace Anticipated date of discharge: 02/02/18 Brief History from admission: 37yM with history of type I diabetes and ESRD with permanent fistula presents for worsening nausea/vomiting. of note, he has a wound on his foot that has been seen by wound clinic and was prescribed an antibiotic but has not filled the prescription or taken the medication yet. in the ER, he is found to be in DKA with an elevated glucose to 1100, venous pH 7.1, bicarb 8, k 3.7, Cr >4. endoreses n/v/abdominal pain, denies chest pain, sob. denies fever, chills. visibly in distress on exam. remainder of ROS negative.. of note, patient has an insulin pump which is functioning properly and is currently running. DS: Medications - Discharge Medications Prescriptions: sodium bicarbonate 325 mg PO TID 30 Days #90 tab DS: Summary Hospital Course: 37yM with ESRD and DKA, likely secondary to foot cellulitis. 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 - he does not know his basal rate does not have supplies here " he- MD takes care of everything" - contiue to monitor and adjust - endocrinology ff- as OP- in [facility] Acute on CKD V likely from diabetic nephropathy- non oliguric - at one point was on HD - Right AVF in place- good thrill - renal ff- no need for HD at this time, non oliguric, creatinine stabilizing- likely baseline - off HCO3 drip Hypokalemia- resolved - off HC03 drip - givwe 50 meq potassium now - 10 meq po bid Hypertension- improved - denies any history - at one point was on BESSIE but mainly for renal protection- was DC as OP with worsening renal funciton - requested ECho EF 60-65 % minimal pericardial effusion, mild TR, - clonidine prn - - on Procardia to 90 mg XL daily - on Hydralazine to 50 mg tid taking po well Left plantar ulcer - growing S aureus Blood culture - 07/27 + - likley contaminant Seen by Podiatry - local wound care ordered seen by Dr. Gama - Vancomycin DC History of DVT Eliquis 5 mg po bid - home dose + Nausea- resolved secondary to DKA -now with good po intake - PPI home today - Time Spent with Patient Total time spent providing and/or coordinating discharge services: Exam Vital signs: Vital Signs 02/01/18 20:00 02/02/18 00:00 02/02/18 04:00 Temperature 98.4 F 98.5 F 98.4 F Pulse Rate 92 H 98 H 94 H Respiratory Rate 18 24 24 Blood Pressure 114/67 122/67 151/86 H Pulse Oximetry 97 99 02/02/18 08:00 02/02/18 09:00 02/02/18 12:00 Temperature 98.5 F 98.5 F Pulse Rate 93 H 93 H 89 Respiratory Rate 21 15 Blood Pressure 171/71 H 134/68 Pulse Oximetry 100 100 02/02/18 16:00 02/02/18 17:49 Temperature 98.3 F Pulse Rate 101 H Respiratory Rate 18 Blood Pressure 136/72 Pulse Oximetry 100 96 Intake & Output 02/01/18 02/02/18 02/02/18 18:59 06:59 18:59 Intake Total 3823 / 3823 200 / 200 Output Total 1800 / 1800 1350 / 1350 Balance 2022 / 2022 -1150 / -1150 Weight 83.4 kg Intake: Oral 1500 / 1500 Other 2323 / 2323 200 / 200 Output: Urine 1800 / 1800 1350 / 1350 Stool 0 / 0 0 / 0 Other: Other Intake Source Saline Solution # Voids 4 3 Date of Last Bowel Movement 01/31/18 01/31/18 01/31/18 # Bowel Movements 0 0 Results Procedures completed during hospitalization: none Labs on day of discharge: Labs from last 24 hours 02/02/18 02/02/18 02/02/18 15:38 11:53 10:45 Sodium 138 Potassium 4.4 D Chloride 106 Carbon Dioxide 21.8 Anion Gap 10 BUN 50 H Creatinine 3.78 H Estimated GFR 18 L POC Glucose 73 159 H Random Glucose 204 H D Calcium 7.5 L 02/02/18 02/02/18 02/01/18 07:49 07:47 20:17 Sodium Potassium Chloride Carbon Dioxide Anion Gap BUN Creatinine Estimated GFR POC Glucose 449 H 519 H* 341 H Random Glucose Calcium - Impressions ITS Impressions Chest X-Ray 01/26/18 04:38 CONCLUSION: No evidence of acute cardiopulmonary disease. Foot X-Ray 01/26/18 20:34 CONCLUSION: 1. No acute fracture or dislocation. 2. No radiopaque foreign body or significant soft tissue swelling. Discharge Plan - Discharge Disposition Patient Disposition: Discharge Home - Discharge Condition Condition: Stable - Discharge Order Discharge Orders: Discharge Order (Routine); Ordered 02/02/18 Ordered By: Darian Phan - Discharge Details Anticipated Discharge Date: 02/02/18 Discharge Comment: today - Physicians Team Primary Care Provider: Brittany Lovelace Attending Provider: Darian Phan Other Providers: Bay Gifford MD ; Cherie Dennis DPM ; Nader Gama MD ; [email or web address] ; Doug Sow MD
--- NOTE | 2018-02-02 18:57 | P.PNNP ---
Subjective Interval history: Patient is alert, eating well, not in distress. Physical Exam Vital signs: Vital Signs 02/01/18 20:00 02/02/18 00:00 02/02/18 04:00 Temperature 98.4 F 98.5 F 98.4 F Pulse Rate 92 H 98 H 94 H Respiratory Rate 18 24 24 Blood Pressure 114/67 122/67 151/86 H Pulse Oximetry 97 99 02/02/18 08:00 02/02/18 09:00 02/02/18 12:00 Temperature 98.5 F 98.5 F Pulse Rate 93 H 93 H 89 Respiratory Rate 21 15 Blood Pressure 171/71 H 134/68 Pulse Oximetry 100 100 02/02/18 16:00 02/02/18 17:49 Temperature 98.3 F Pulse Rate 101 H Respiratory Rate 18 Blood Pressure 136/72 Pulse Oximetry 100 96 Intake & Output 02/01/18 02/02/18 02/02/18 18:59 06:59 18:59 Intake Total 3823 / 3823 200 / 200 Output Total 1800 / 1800 1350 / 1350 Balance 2022 / 2022 -1150 / -1150 Weight 83.4 kg Intake: Oral 1500 / 1500 Other 2323 / 2323 200 / 200 Output: Urine 1800 / 1800 1350 / 1350 Stool 0 / 0 0 / 0 Other: Other Intake Source Saline Solution # Voids 4 3 Date of Last Bowel Movement 01/31/18 01/31/18 01/31/18 # Bowel Movements 0 0 Narrative: awake and alert, oriented x 3 anicteric moist oral mucosa neck supple lungs- no rales regular rhythm abdomen soft, nontender no calf swelling or tenderness left heel- superficial ulcer, edges clean, minimal drainage on gauze good peripheral pulses Assessment and Plan - Assessment (1) Chronic kidney disease, stage 4, severely decreased GFR Code(s): N18.4 - Chronic kidney disease, stage 4 (severe) Status: Acute (2) DKA, type 1 Code(s): E10.10 - Type 1 diabetes mellitus with ketoacidosis without coma Status: Acute Qualifiers: Diabetes mellitus complication detail: without coma Qualified Code(s): E10.10 - Type 1 diabetes mellitus with ketoacidosis without coma - Plan Acute kidney injury with Stage 4 Chronic kidney disease: Acute kidney injury on CKD Creatinine continue to improve. He has AVF done and has stage 4 chronic kidney disease. Has underlying chronic kidney disease is likely due to diabetic nephropathy. He is followed by Post Acute Care Nurse Practitioner Dr. Garsia in [place]. Suspect is his baseline 3.4-3.7. He has a AVF in right lower arm with good thrill and bruit. Per patient not ready for use, however not followed for maturation. (may evaluate for maturity as an outpatient - excellent thrill, AVF [place] [address] Finn. Creatinine increase slightly to 3.7, could be from labile BS. HC03 is normalized. Hypokalemia with replacement given Urinary output excellent Will monitor urinary output and BMP Maintain strict I+O and avoid nephrotoxic agents. No need for dialysis at this time. DKA Blood sugars have improved. Off insulin gtt Hypertensive Blood pressure has improved. Will monitor
== END 2018-02-02 19:38 | disposition home or self-care (01) ==
LOC: PHED 04:14 → PHEDA 06:01 → HIMC 10:32
PROVIDERS: ADMIT Internal Medicine; ATTEND Internal Medicine

== ENCOUNTER 2018-02-05 08:39 | Inpatient (IN) ==
[2018-02-05] MEDS ORDERED: Sod Chloride 0.9% Inj 1,000 ML IV.SIG ONE ×2 (08:56)
--- NOTE | 2018-02-05 09:00 | ED ---
HPI General Chief complaint: Recheck/Abnormal Lab/Rx Stated complaint: Medical/Evac Time Seen by Provider: 02/05/18 08:49 History of Present Illness HPI narrative: Patient presents to the emergency department by [facility] secondary to elevated blood sugar. States her blood sugars have been greater than 604 more than 24 hours. He reports compliance with his insulin. Of note patient was recently discharged for DKA secondary to left infected heel. Unable to get complete history and physical from patient secondary to AMS. He denies f/c, abd pain,but reports dyspnea and chest pain. Also advised that he was given 4mg zofran by EMS prior to arrival. Related Data Home Medications Medication Instructions Recorded Confirmed Multi Vitamin 01/26/18 Vitamin D3 1,000 units 01/26/18 apixaban [Eliquis] 5 mg PO BID 01/26/18 01/26/18 aspirin 81 mg PO DAILY 01/26/18 01/26/18 insulin pump-infus. set-meter 01/26/18 01/26/18 loratadine 10 mg PO DAILY 01/26/18 01/26/18 paricalcitol 1 mcg PO DAILY 01/26/18 01/26/18 sertraline 100 mg PO DAILY 01/26/18 01/26/18 topiramate 50 mg PO DAILY 01/26/18 01/26/18 tramadol 50 mg PO Q6H 01/26/18 01/26/18 Previous Rx's Medication Instructions Recorded sodium bicarbonate 325 mg PO TID 30 Days #90 tab 02/02/18 Allergies Allergy/AdvReac Type Severity Reaction Status Date / Time amoxicillin Allergy Severe Rash Verified 02/05/18 08:56 broccoli Allergy Severe ANAPHYLAXIS Verified 02/05/18 08:56 mushroom Allergy Severe ANAPHYLAXIS Verified 02/05/18 08:56 penicillin G Allergy Severe Hives Verified 02/05/18 08:56 *MDRO Multi-Drug Resistant AdvReac Unknown Arrhythmias Uncoded 02/05/18 08:56 Organism Review of Systems ROS Unobtainable All other systems reviewed negative except as stated in HPI PMFSH Social History Social History Substance History: No History of Abuse Second Hand Smoke Exposure: Yes Smoking Status: Never smoker Tobacco Type: E-Cigarettes How Often Do You Have a Drink Containing Alcohol: Never Hx Recent Travel: No Recent Travel in [facility] within the Last 8 Weeks: No Recent Out of Country Travel within the Last 8 Weeks: No Immunization History Tetanus Immunization: Unsure Hx Influenza Vaccine This Season: Unable to Assess Exam Narrative Exam Narrative: GENERAL: + tachypnea SKIN: Focused skin assessment warm/dry. HEAD: Atraumatic. Normocephalic. EYES: Pupils equal and round. No scleral icterus. No injection or drainage. ENT: No nasal bleeding or discharge. Mucous membranes dry. NECK: Trachea midline. No JVD. CARDIOVASCULAR: Regular rate and rhythm. No murmur appreciated. RESPIRATORY: No accessory muscle use. Clear to auscultation. Breath sounds equal bilaterally. GASTROINTESTINAL: Abdomen soft, diffusely tender, nondistended. Hepatic and splenic margins not palpable. MUSCULOSKELETAL: No obvious deformities. No clubbing. No cyanosis. No edema. Healing L heel ulcer. NEUROLOGICAL: Awake and alert. No obvious cranial nerve deficits. Motor grossly within normal limits. Normal speech. PSYCHIATRIC: Appropriate mood and affect; insight and judgment normal. Course Initial Documented Vital Signs Temperature 97.7 F 02/05/18 08:42 Pulse Rate 111 H 02/05/18 08:42 Respiratory Rate 26 H 02/05/18 08:42 Blood Pressure 123/59 L 02/05/18 08:42 Pulse Oximetry 100 02/05/18 08:42 Last Documented Vital Signs Temperature 97.7 F 02/05/18 08:52 Pulse Rate 96 H 02/05/18 11:00 Respiratory Rate 26 H 02/05/18 11:00 Blood Pressure 92/52 L 02/05/18 11:00 Pulse Oximetry 100 02/05/18 11:00 Critical Care Time Total Critical Care Time: 35 Attestation: Aggregate critical care time was 35 minutes. Time to perform other separately billable procedures was not included in the critical care time. My time did not include minutes spent treating any other patients simultaneously or on activities that did not directly contribute to the patient's treatment. The services I provided to this patient were to treat and/or prevent clinically significant deterioration that could result in: , disability, increase morbidity I provided critical care services requiring my management, as noted below: Chart data review, documentation time, medication orders and management, vital sign assessments/reviewing monitor data, ordering and reviewing lab tests, ordering and interpreting/reviewing x-rays and diagnostic studies, care of the patient and discussion of the patient with the admitting physicians. Medical Decision Making MDM Narrative Medical decision making narrative: Patient has leukocytosis,Patient presents to the emergency department with elevated blood sugar. Patient placed on ekg monitor tech, continuous pulse ox, and IV access obtained. 2 L IV normal saline ordered an EKG, chest x-ray, labs ordered. She likely an ICU admission for DKA. Patient given 2 L of IV normal saline upon arrival in the ER. Patient has leukocytosis, decrease hgb and HCT, elevated BUN/creatinine/glucose/ troponin/potassium/phosphorous/CKMB/beta hydroxybutyrate/anion gap/alkphos. When chemistry resulted, patient given 8 units regular insulin IV. ICU admission called. DKA protocol started. 1105: ICU, DR. Lyles at bedside. Patient given another 10 units regular insulin IV and bicarb. Renal, Dr. Gifford consulted and at bedside at 1135. Patient refuses catheter. CXR: FINDINGS: There is slight focal infiltrate right upper lobe not present previously. Heart and mediastinum are unremarkable for technique. CONCLUSION: Slight right upper lobe infiltrate not present previously. Patient given 750mg IV levaquin for PNA (PCN allergy). Differential Diagnosis Differential Diagnosis: Hyperglycemia, DKA, pancreatitis, ACS, pneumonia, Lab Data Result diagrams: 02/05/18 09:00 02/05/18 09:00 Lab Results 02/05/18 02/05/18 02/05/18 Range/Units 09:00 09:00 09:00 WBC 14.5 H (4.0-11.0) th/mm3 RBC 2.95 L (4.50-5.90) mil/mm3 Hgb 8.6 L (13.0-17.0) gm/dL Hct 30.6 L (39.0-51.0) % MCV 103.8 H (80.0-100.0) fL MCH 29.1 (27.0-34.0) pg MCHC 28.1 L (32.0-36.0) % RDW 17.2 (11.6-17.2) % Plt Count 426 D (150-450) th/mm3 MPV 8.4 (7.0-11.0) fL Neut % (Auto) 87.1 H (16.0-70.0) % Lymph % (Auto) 5.9 L (9.0-44.0) % [place] % (Auto) 6.4 (0.0-8.0) % Eos % (Auto) 0.2 (0.0-4.0) % Baso % (Auto) 0.4 (0.0-2.0) % Neut # (Auto) 12.6 H (1.8-7.7) th/mm3 Lymph # (Auto) 0.9 L (1.0-4.8) th/mm3 [place] # (Auto) 0.9 (0.0-0.9) th/mm3 Eos # (Auto) 0.0 (0.0-0.4) th/mm3 Baso # (Auto) 0.1 (0.0-0.2) th/mm3 WBC Differential . Differential Comment Auto diff final Puncture Site Patient Temperature O2 Saturation (90-100) % ABG pH (7.380-7.420) ABG pCO2 (38-42) mmHg ABG pO2 (61-120) mmHg ABG HCO3 (22-26) mmol/L ABG O2 Content (12.0-20.0) Vol % ABG Base Excess (-2-2) mmol/L ABG Methemoglobin (0-2) % Zain Test Hemoglobin (12.0-16.0) G/DL Carboxyhemoglobin (0-4) % O2 Delivery Device Liter Flow L/M Inspired O2 % Critical Value Sodium 129 L (136-145) meq/L Potassium 6.4 H (3.5-5.1) meq/L Chloride 91 L (98-107) meq/L Carbon Dioxide Less than 5.0 L (21.0-32.0) meq/L Anion Gap 33 H (5-15) meq/L BUN 67 H (7-18) mg/dL Creatinine 4.92 H (0.60-1.30) mg/dL Estimated GFR 14 L (>89) mL/min POC Glucose (68-110) mg/dl Random Glucose 831 H* (74-106) mg/dL Lactic Acid (0.4-2.0) mmol/L Calcium 7.8 L (8.5-10.1) mg/dL Phosphorus 9.3 H (2.5-4.9) mg/dL Magnesium 2.5 (1.5-2.5) mg/dL Total Bilirubin 0.5 (0.2-1.0) mg/dL AST 30 (15-37) U/L ALT 27 (12-78) U/L Alkaline Phosphatase 124 H (45-117) U/L Total Creatine Kinase 275 (39-308) U/L CK-MB (CK-2) 8.9 H (0.5-3.6) ng/mL Troponin I 0.09 H (0.02-0.05) ng/mL Total Protein 5.8 L D (6.4-8.2) g/dL Albumin 2.3 L (3.4-5.0) g/dL Lipase 81 (73-393) U/L Beta-Hydroxybutyric Acd 14.14 H (0.00-0.39) mmol/L 02/05/18 02/05/18 02/05/18 Range/Units 09:08 10:17 11:13 WBC (4.0-11.0) th/mm3 RBC (4.50-5.90) mil/mm3 Hgb (13.0-17.0) gm/dL Hct (39.0-51.0) % MCV (80.0-100.0) fL MCH (27.0-34.0) pg MCHC (32.0-36.0) % RDW (11.6-17.2) % Plt Count (150-450) th/mm3 MPV (7.0-11.0) fL Neut % (Auto) (16.0-70.0) % Lymph % (Auto) (9.0-44.0) % [place] % (Auto) (0.0-8.0) % Eos % (Auto) (0.0-4.0) % Baso % (Auto) (0.0-2.0) % Neut # (Auto) (1.8-7.7) th/mm3 Lymph # (Auto) (1.0-4.8) th/mm3 [place] # (Auto) (0.0-0.9) th/mm3 Eos # (Auto) (0.0-0.4) th/mm3 Baso # (Auto) (0.0-0.2) th/mm3 WBC Differential Differential Comment Puncture Site Left radial Patient Temperature 98.6 O2 Saturation 95 (90-100) % ABG pH 6.95 L* (7.380-7.420) ABG pCO2 10 L* (38-42) mmHg ABG pO2 153 H (61-120) mmHg ABG HCO3 2 L* (22-26) mmol/L ABG O2 Content 10.8 L (12.0-20.0) Vol % ABG Base Excess -28.0 L (-2-2) mmol/L ABG Methemoglobin 1.3 (0-2) % Zain Test Present Hemoglobin 7.9 L (12.0-16.0) G/DL Carboxyhemoglobin 1.6 (0-4) % O2 Delivery Device Nasal cannula Liter Flow 2.00 L/M Inspired O2 21 % Critical Value Yes Sodium (136-145) meq/L Potassium (3.5-5.1) meq/L Chloride (98-107) meq/L Carbon Dioxide (21.0-32.0) meq/L Anion Gap (5-15) meq/L BUN (7-18) mg/dL Creatinine (0.60-1.30) mg/dL Estimated GFR (>89) mL/min POC Glucose Greater than 600 H* (68-110) mg/dl Random Glucose (74-106) mg/dL Lactic Acid 2.0 (0.4-2.0) mmol/L Calcium (8.5-10.1) mg/dL Phosphorus (2.5-4.9) mg/dL Magnesium (1.5-2.5) mg/dL Total Bilirubin (0.2-1.0) mg/dL AST (15-37) U/L ALT (12-78) U/L Alkaline Phosphatase (45-117) U/L Total Creatine Kinase (39-308) U/L CK-MB (CK-2) (0.5-3.6) ng/mL Troponin I (0.02-0.05) ng/mL Total Protein (6.4-8.2) g/dL Albumin (3.4-5.0) g/dL Lipase (73-393) U/L Beta-Hydroxybutyric Acd (0.00-0.39) mmol/L Imaging Data Radiologist's impression: Chest X-Ray 02/05/18 09:00 CONCLUSION: Slight right upper lobe infiltrate not present previously. ECG Data EKG Prior to Arrival: No Attestation: I personally reviewed and interpreted this ECG as follows: (Sinus tachycardia at 107, normal axis, ST depression in V4 through V6, T-wave inversion in V1 and V2) Discharge Plan Discharge Disposition Patient Disposition: 30 Still Patient Discharge Condition Condition: Critical Discharge Details Diagnosis: DKA, type 1, Pneumonia Physicians Team ED Provider: Nikki Jolley Primary Care Provider: Brittany Lovelace Attending Provider: Mike Lyles ED Status: Admitted Patient
[2018-02-05 09:16] LABS: Baso # (Auto) 0.1 th/mm3 (0.0-0.2); Baso % (Auto) 0.4 % (0.0-2.0); Eos % (Auto) 0.2 % (0.0-4.0); Hematocrit 30.6 % (39.0-51.0); Hemoglobin 8.6 gm/dL (13.0-17.0); Lymph # (Auto) 0.9 th/mm3 (1.0-4.8); Lymph % (Auto) 5.9 % (9.0-44.0); Mean Corpuscular Hemoglobin 29.1 pg (27.0-34.0); Mean Corpuscular Volume 103.8 fL (80.0-100.0); Mean Platelet Volume 8.4 fL (7.0-11.0); Mono # (Auto) 0.9 th/mm3 (0.0-0.9); Mono % (Auto) 6.4 % (0.0-8.0); Neut # (Auto) 12.6 th/mm3 (1.8-7.7); Neut % (Auto) 87.1 % (16.0-70.0); Platelet Count 426 th/mm3 (150-450); Red Blood Count 2.95 mil/mm3 (4.50-5.90); Red Cell Distribution Width 17.2 % (11.6-17.2); White Blood Count 14.5 th/mm3 (4.0-11.0)
[2018-02-05 09:24] LABS: ABG PCO2 10 mmHg (38-42); ABG PO2 153 mmHg (61-120)
[2018-02-05 09:31] LABS: Mean Corpuscular HGB Conc 28.1 % (32.0-36.0)
--- NOTE | 2018-02-05 09:32 | XR ---
EXAM DATE: 02/05/2018 9:25 AM EDT AGE/SEX: 37 years / Male INDICATIONS: . Shortness of breath, with weakness. CLINICAL DATA: This is the patient's initial encounter. Patient reports that signs and symptoms have been present for 1 day and indicates a pain score of Nonresponsive. MEDICAL/SURGICAL HISTORY: Diabetes mellitus type II. None. COMPARISON: [facility], CHEST 1V SINGLE AP, 01/26/2018. . FINDINGS: There is slight focal infiltrate right upper lobe not present previously. Heart and mediastinum are u nremarkable for technique. CONCLUSION: Slight right upper lobe infiltrate not present previously. Electronically signed by: Page Grayson MD 02/05/2018 9:30 AM EDT
[2018-02-05 10:02] LABS: Alanine Aminotransferase 27 U/L (12-78); Albumin 2.3 g/dL (3.4-5.0); Alkaline Phosphatase 124 U/L (45-117); Anion Gap 33 meq/L (5-15); Aspartate Aminotransferase 30 U/L (15-37); Beta Hydroxybutyric Acid 14.14 mmol/L (0.00-0.39); Blood Urea Nitrogen 67 mg/dL (7-18); Calcium 7.8 mg/dL (8.5-10.1); Chloride 91 meq/L (98-107); Glomerular Filtration Rate 14 mL/min (>89); Lipase 81 U/L (73-393); Magnesium 2.5 mg/dL (1.5-2.5); Phosphorus 9.3 mg/dL (2.5-4.9); Potassium 6.4 meq/L (3.5-5.1); Sodium 129 meq/L (136-145); Total Protein 5.8 g/dL (6.4-8.2)
[2018-02-05 10:08] LABS: Creatine Kinase 275 U/L (39-308); Troponin I 0.09 ng/mL (0.02-0.05)
[2018-02-05 10:17] LABS: Glucose,Random 831 mg/dL (74-106)
[2018-02-05 10:21] LABS: Creatine Kinase MB 8.9 ng/mL (0.5-3.6)
[2018-02-05] MEDS ORDERED: Pantoprazole Inj 40 MG Vial IV.PUSH ONE (10:31)
[2018-02-05] MEDS ORDERED: Potassium Chlor 20 mEq Premix 20 MEQ/100 ML PIGGYBACK IV.SIG PRN ×3 (10:42)
[2018-02-05] MEDS ORDERED: Sodium Phosphate Inj 15 MMOL in Sodium Chlor 0.9% Inj 100 ML IV.SIG PRN (10:42)
[2018-02-05] MEDS ORDERED: Insulin Regular (For Infusion) 100 UNIT in Sodium Chlor 0.9% Inj 99 ML IV.CONT PRN (10:42)
[2018-02-05] MEDS ORDERED: Sod Chloride 0.9% Inj 1,000 ML IV.CONT SCH (10:45)
[2018-02-05] MEDS ORDERED: Bisacodyl 10 MG Supp RECTAL PRN (11:47)
[2018-02-05] MEDS ORDERED: Acetaminophen 325 MG Tablet PO PRN ×2 (11:47→12:00)
[2018-02-05] MEDS ORDERED: Sod Chloride 0.9% Inj 2,000 ML IV.SIG ONE (11:47)
[2018-02-05] MEDS ORDERED: Sod Chloride 0.9% Inj 1,000 ML OTHER PRN (12:00)
[2018-02-05] MEDS ORDERED: Albumin Human 25% Inj 100 ML IV.SIG PRN (12:00)
[2018-02-05] MEDS ORDERED: Sod Chloride 0.9% Inj 1,000 ML IV.CONT PRN (12:00)
[2018-02-05] MEDS ORDERED: Gelatin 12 MM/7 MM Topical Foam TOPICAL PRN (12:00)
--- NOTE | 2018-02-05 12:22 | MB ---
cc: Bay Gifford MD DATE: 02/05/2018 REASON FOR CONSULTATION: Chronic kidney disease with advanced renal failure, came with hyperkalemia and severe metabolic acidosis. HISTORY OF PRESENT ILLNESS: I was called to see the patient because of advanced renal disease. The patient was seen by me when he was admitted last time; this was 2-3 weeks ago and then he was discharged just last week. The patient has history of hypertension, diabetes mellitus, history of DVT, blindness in the right eye with diabetic retinopathy, left foot ulcer, recent diabetic ketoacidosis, chronic kidney disease, advanced stage IV renal failure. He came to the hospital with complaint of diarrhea, nausea, vomiting, and feeling weak. I was called to see the patient because of very high BUN and creatinine. The patient has a history of advanced stage IV renal disease. He has a fistula in the right arm, but has never been started on dialysis. He was discharged recently with a creatinine of 3.7. Now, he came with a creatinine of 4.9 and a very high potassium of 6.4 and bicarbonate less than 5 with a pH of 6.95. The patient was found to be severely acidotic with an anion gap of 33. He is started on diabetic ketoacidosis protocol and was given the bicarbonate and insulin. The patient also has nausea and, according to him, he has been taking his medications. The patient lives with a roommate who called EMS. The patient has mild shortness of breath. PAST MEDICAL HISTORY: Hypertension, diabetes mellitus, chronic anemia, peripheral vascular disease, diabetic retinopathy, chronic kidney disease. PAST SURGICAL HISTORY: History of right A-V fistula surgery. SOCIAL HISTORY: The patient is single. He lives with a roommate. There is no history of smoking or alcoholism. FAMILY HISTORY: Noncontributory. ALLERGIES: ALLERGIC TO MULTIPLE MEDICATIONS INCLUDING AMOXICILLIN AND PENICILLIN G. MEDICATIONS: Currently, he is on following medications: Dextrose with normal saline, insulin infusion with diabetic ketoacidosis protocol. PHYSICAL EXAMINATION: GENERAL: The patient is quite lethargic, but arousable, in mild respiratory distress. VITAL SIGNS: His last blood pressure was 92/52. The patient was given IV fluid boluses. Temperature is 97.7, oxygen saturation on 2 liters nasal cannula 100 percent. HEENT: Pupils are mid-constricted. Nonicteric sclerae. Conjunctivae pale. NECK: Supple. JVD is not elevated. LUNGS: Bilateral good air entry with occasional wheezing. HEART: S1, S2. Regular rate and rhythm. ABDOMEN: Soft, lax. There is no tenderness. Bowel sounds positive. EXTREMITIES: He has mild edema. The right arm has a AV fistula with a good bruit. INVESTIGATIONS: WBC count is 14.5, hemoglobin 8.6, platelet count of 426, neutrophils 87 percent. Blood gas showing pH of 6.95, pCO2 of 10, bicarbonate of 2, pO2 of 153, base excess -28. Blood sugar was 831, sodium 129, potassium 6.4, chloride 91, bicarbonate less than 5. BUN 67, creatinine 4.9. Total protein is 5.8, albumin of 2.3. Beta hydroxybutyrate is 14.1. Blood cultures pending. IMAGING STUDIES: The patient had a chest x-ray done, which shows right upper lobe infiltration which was not present previously. He has an echocardiogram done during last admission and shows ejection fraction of 60-65%, normal left ventricular size, trace pericardial effusion. ASSESSMENT AND PLAN: 1. Hyperkalemia and severe metabolic acidosis. 2. Diabetic ketoacidosis. 3. Chronic kidney disease with some acute worsening and advanced renal failure. 4. Anemia. 5. Hypertension. 6. Diabetes mellitus. The patient has advanced renal disease. He has very low protein and he is approaching end-stage and may need to start on dialysis. The blood pressure is on the lower side, most likely because of the diabetic ketoacidosis and some dehydration. His A-V fistula seems like it is still not ready for use, but I will have the dialysis nurse check it to see if it can be used. In the meantime, he is going to get the Vas-Cath and he will be started on dialysis, so we will not remove too much fluid. Thank you for this consultation. I will follow the patient while he is in the hospital. MD KATIA Arreola/MIKE , 11:58 AM , 12:21 PM HARDIK
[2018-02-05] MEDS: Pantoprazole Inj 40 MG Vial IV.PUSH SCH (12:27)
[2018-02-05] MEDS ORDERED: *Heparin 10,000 UNITS/10 ML Vial Periprocedural ONLY ONE (13:20)
--- NOTE | 2018-02-05 15:23 | P.HPCC ---
History of Present Illness Primary Care Physician: Brittany Lovelace Chief Complaint: Shortness of breath History of Present Illness: 37-year-old male with a medical history significant for insulin-dependent diabetes mellitus, hypertension, DVT on Eliquis last dose taken on 02/03, 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 He is nonoliguric and makes adequate urine. On discharge his BUN was 50 creatinine 3.7. Patient tells me that he developed diarrhea a day after discharge with dehydration secondary to nausea vomiting and inability to keep anything down. He got more short of breath and was brought to the ER today where he was noted to be in severe metabolic acidosis with a pH of 6.95 and anion gap of 33 and extremely high glucose. He also was noted to have worsening renal function based on his BUN/creatinine. He was diagnosed to be in DKA as well as worsening renal failure. He was given 2 L normal saline bolus and started on DKA protocol. I was contacted by ER physician and accepted patient for admission to the ICU. I advised immediate nephrology consult and evaluated patient in ER. Patient did receive 8 units of regular insulin IV. I ordered additional 10 units regular insulin IV and a second amp of bicarb IV push. Patient was initiated on DKA protocol with insulin drip and IV fluids. I ordered additional 2 L normal saline bolus Dr. Gifford evaluated patient and recommended initiating urgent dialysis after Vas-Cath placement. Patient was extremely tachypneic second to Kussmaul respirations due to metabolic acidosis. IR placed vascath and patient was admitted to [facility] [place]. Inpatient Certification: I certify that the inpatient services were ordered in accordance with Medicare regulations governing the order. This includes certification that hospital inpatient services are reasonable and necessary and in the case of services not specified as inpatient-only under 42 CFR 419.22(n), that they are appropriately provided as inpatient services in accordance to with the 2-midnight benchmark under 43 CFR 412.3(e) Estimated Total Length of Stay (Days): 5 Plans for Post Hospital Care: Not yet determined PMFSH - History History Provided By: Overlay Operator / EMT - Medical History Medical History: Medical History (Last Reviewed 02/05/18 @ 08:49 by Crissy Fitch RN) AVF (arteriovenous fistula) Anxiety CKD (chronic kidney disease) stage 5, GFR less than 15 ml/min DVT (deep venous thrombosis) Depression Diabetes Diabetic retinopathy Diabetic ulcer of heel Hypertension Neuropathy - Surgical History Surgical History: Surgical History (Last Reviewed 02/05/18 @ 08:49 by Crissy Fitch RN) Status post right foot surgery - Tobacco History Second Hand Smoke Exposure: Yes Smoking Status: Never smoker Tobacco Type: E-Cigarettes - Alcohol History How Often Do You Have a Drink Containing Alcohol: Never - Substance Use History Substance History: No History of Abuse - Travel History History of Recent Travel: No Recent Travel in the [place] Within the Last 8 Weeks: No Recent Travel Out of the Country Within the Last 8 Weeks: No - Immunization History Tetanus Immunization: Unable to Assess Hx Influenza Vaccine This Season: Unable to Assess Medications and Allergies Active Medications: Active Medications Acetaminophen (Tylenol) 650 mg PO Q6H PRN PRN Reason: PAIN 1-10 AND/OR FEVER >101F Acetaminophen (Tylenol) 650 mg PO UNSCH PRN PRN Reason: SEE LABEL COMMENTS Albuterol (Duoneb Neb (Prn)) 1 ampul NEB Q2HR NEB PRN PRN Reason: WHEEZING Bisacodyl (Dulcolax Supp) 10 mg RECTAL DAILY PRN PRN Reason: SEVERE CONSITIPATION Chlorhexidine Gluconate (Chlorhexidine 2% Cloth) 3 pack TOPICAL DAILY@0400 JORDAN Stop: 02/11/18 03:59 Chlorhexidine Gluconate (Chlorhexidine 2% Cloth) 3 pack TOPICAL DAILY@0400 PRN PRN Reason: Extra cloth needed Stop: 02/11/18 03:59 Clonidine HCl (Catapres) 0.1 mg PO UNSCH PRN PRN Reason: SEE LABEL COMMENTS Diphenhydramine HCl (Benadryl) 25 mg PO UNSCH PRN PRN Reason: SEE LABEL COMMENTS Epoetin Pipo (Epogen Inj) 10,000 unit IV.PUSH MOWEFR PRN PRN Reason: SEE LABEL COMMENTS Gelatin (Gelfoam 12 Mm/7 Mm Topical) 1 foam TOPICAL PRN PRN PRN Reason: help stop bleeding from site Gentamicin Sulfate (Gentamicin Inj) 20 mg OTHER WITH DIALYSIS PRN PRN Reason: Dwell Gentamycin Lock Heparin Sodium (Porcine) (Heparin Inj) 8,000 units IV.FLUSH WITH DIALYSIS PRN PRN Reason: for machine prime Heparin Sodium (Porcine) (Heparin Inj) 1,000 units OTHER WITH DIALYSIS PRN PRN Reason: Dwell Heparin to Fill Catheter Dextrose/Sodium Chloride (D5w/Normal Saline Inj) 1,000 mls @ 200 mls/hr IV.CONT .Q5H JORDAN Insulin Human Regular 100 unit (/ Sodium Chloride) 100 mls @ 8 mls/hr IV.CONT TITRATE PRN; Protocol PRN Reason: See protocol Last Admin: 02/05/18 11:17 Dose: 8 units/hr, 8 mls/hr Potassium Chloride (Kcl 20 Meq Premix Inj) 20 meq in 100 mls @ 50 mls/hr IV.SIG Q2H PRN PRN Reason: for K+ 4.5 to 5 Potassium Chloride (Kcl 20 Meq Premix Inj) 20 meq in 100 mls @ 50 mls/hr IV.SIG Q2H PRN PRN Reason: for K+ 3.5 to 4.4 Potassium Chloride (Kcl 20 Meq Premix Inj) 20 meq in 100 mls @ 50 mls/hr IV.SIG Q2H PRN PRN Reason: for Subsequent K+ < 3.5 Sodium Chloride (Ns Inj) 1,000 mls @ 250 mls/hr IV.CONT .Q4H JORDAN Sodium Phosphate 15 mmol/ (Sodium Chloride) 105 mls @ 25 mls/hr IV.SIG UNSCH PRN PRN Reason: for Phosphate Level < 1.0 Potassium Chloride (Kcl 20 Meq Premix Inj) 20 meq in 100 mls @ 50 mls/hr IV.SIG Q2H PRN PRN Reason: for Initial K+ ONLY < 3.5 Albumin Human (Flexbumin 25% Inj) 100 mls @ 60 mls/hr IV.SIG WITH DIALYSIS PRN PRN Reason: hypotension / volume replace Sodium Chloride (Ns Inj) 1,000 mls @ 0 mls/hr OTHER .Q0M PRN PRN Reason: for prime and rinse back Sodium Chloride (Ns Inj) 1,000 mls @ 200 mls/hr OTHER .Q5H PRN PRN Reason: for dialyzer flush PRN Sodium Chloride (Ns Inj) 1,000 mls @ 0 mls/hr IV.CONT .Q0M PRN PRN Reason: hypotension / volume replace Mannitol (Mannitol Inj) 12.5 gm IV.PUSH PRN PRN PRN Reason: hypotension / volume replace Nitroglycerin (Nitrostat Sl) 0.4 mg SL Q5M PRN PRN Reason: CHEST PAIN Ondansetron HCl (Zofran Odt) 4 mg SL Q6H PRN PRN Reason: NAUSEA OR VOMITING Ondansetron HCl (Zofran Odt) 4 mg SL DAILY PRN PRN Reason: NAUSEA OR VOMITING Pantoprazole Sodium (Protonix Inj) 40 mg IV.PUSH DAILY JORDAN Last Admin: 02/05/18 12:27 Dose: Not Given Senna/Docusate Sodium (Margarita-Colace) 1 tab PO BID REPLACED BY [facility] Sennosides (Senokot) 17.2 mg PO Q12H PRN PRN Reason: Moderate Constipation Sodium Bicarbonate (Sodium Bicarbonate 8.4% Inj) 100 meq IV.PUSH UNSCH PRN PRN Reason: for pH less than 6.9 Sodium Bicarbonate (Sodium Bicarbonate 8.4% Inj) 50 meq IV.PUSH UNSCH PRN PRN Reason: for pH 6.9 to 7.0 Last Admin: 02/05/18 11:13 Dose: 50 meq Sodium Chloride (Ns Flush) 2 ml IV.FLUSH BID REPLACED BY [facility] Sodium Chloride (Ns Flush) 2 ml IV.FLUSH PRN PRN PRN Reason: FLUSH AFTER USING IV ACCESS Sodium Chloride (Ns Flush) 5 ml IV.FLUSH PRN PRN PRN Reason: flush each lumen during HD Allergies Allergy/AdvReac Type Severity Reaction Status Date / Time amoxicillin Allergy Severe Rash Verified 02/05/18 08:56 broccoli Allergy Severe ANAPHYLAXIS Verified 02/05/18 08:56 mushroom Allergy Severe ANAPHYLAXIS Verified 02/05/18 08:56 penicillin G Allergy Severe Hives Verified 02/05/18 08:56 *MDRO Multi-Drug Resistant AdvReac Unknown Arrhythmias Uncoded 02/05/18 08:56 Organism Home Medications Medication Instructions Recorded Confirmed Type Multi Vitamin 01/26/18 History Vitamin D3 1,000 units 01/26/18 History apixaban [Eliquis] 5 mg PO BID 01/26/18 01/26/18 History aspirin 81 mg PO DAILY 01/26/18 01/26/18 History insulin pump-infus. set-meter 01/26/18 01/26/18 History loratadine 10 mg PO DAILY 01/26/18 01/26/18 History paricalcitol 1 mcg PO DAILY 01/26/18 01/26/18 History sertraline 100 mg PO DAILY 01/26/18 01/26/18 History topiramate 50 mg PO DAILY 01/26/18 01/26/18 History tramadol 50 mg PO Q6H 01/26/18 01/26/18 History Results - Labs CBC & Chem 7: 02/05/18 09:00 02/05/18 12:30 Labs: Short CBC 02/05/18 Range/Units 09:00 WBC 14.5 H (4.0-11.0) th/mm3 Hgb 8.6 L (13.0-17.0) gm/dL Hct 30.6 L (39.0-51.0) % Plt Count 426 D (150-450) th/mm3 BMP 02/05/18 09:00 Sodium 129 L Potassium 6.4 H Chloride 91 L Carbon Dioxide Less than 5.0 L BUN 67 H Creatinine 4.92 H Calcium 7.8 L Cardiac Enzymes 02/05/18 Range/Units 09:00 Total Creatine Kinase 275 (39-308) U/L CK-MB (CK-2) 8.9 H (0.5-3.6) ng/mL Troponin I 0.09 H (0.02-0.05) ng/mL Liver Function 02/05/18 Range/Units 09:00 Total Bilirubin 0.5 (0.2-1.0) mg/dL AST 30 (15-37) U/L ALT 27 (12-78) U/L Alkaline Phosphatase 124 H (45-117) U/L Albumin 2.3 L (3.4-5.0) g/dL - Imaging Impressions Chest X-Ray 02/05/18 09:00 CONCLUSION: Slight right upper lobe infiltrate not present previously. Exam Vital signs: Vital Signs 02/05/18 08:42 02/05/18 08:52 02/05/18 09:52 Temperature 97.7 F 97.7 F Pulse Rate 111 H 111 H 102 H Respiratory Rate 26 H 26 H 26 H Blood Pressure 123/59 L 123/59 L 120/58 L Pulse Oximetry 100 100 100 02/05/18 11:00 02/05/18 12:00 Temperature Pulse Rate 96 H 88 Respiratory Rate 26 H 26 H Blood Pressure 92/52 L 100/52 L Pulse Oximetry 100 100 Intake & Output 02/04/18 02/05/18 02/05/18 18:59 06:59 18:59 Intake Total 2149 Balance 2149 Weight 81.647 kg Intake: IV 2149 Levaquin 750 mg Premix Inj 150 150 / 150 ML @ 100 mls/hr IV.SIG ONCE ONE Rx#:[id number] NS Inj 1,000 ML @ Wide Open IV. 1999 SIG BOLUS ONE Rx#:[id number] Other: Weight On Admission 81.64 kg Narrative: Averagely built male laying in ER stretcher with significant tachypnea maintaining O2 sats on nasal cannula. HEENT/Neuro: No pallor or icterus, tongue dry, JHON, drowsy, easily arousable, following commands, speech appears normal., nonfocal grossly, moving all 4 extremities Neck: No JVD Chest/pulmonary: CTA bilaterally Cardiovascular: S1-S2 regular no gallop or murmur GI/abdomen: Soft, nontender, bowel sounds present Extremities: Warm bilaterally, no edema. AV fistula noted over right forearm with thrill Caprini VTE Risk Assessment Caprini VTE Risk Assessment: Moderate/High Risk (score >= 2) Caprini Risk Assessment Model: Point Value = 1 Point Value = 2 Point Value = 3 Point Value = 5 Age 41-60 Minor surgery BMI > 25 kg/m2 Swollen legs Varicose veins or History of unexplained or recurrent spontaneous Oral contraceptives or hormone replacement Sepsis (< 1 month) Serious lung disease, including pneumonia (< 1 month) Abnormal pulmonary function Acute myocardial infarction Congestive heart failure (< 1 month) History of inflammatory bowel disease Medical patient at bed rest Age 61-74 Arthroscopic surgery Major open surgery (> 45 min) Laparoscopic surgery (> 45 min) Malignancy Confined to bed (> 72 hours) Immobilizing plaster cast Central venous access Age >= 75 History of VTE Family history of VTE Factor V Leiden Prothrombin [id number] Lupus anticoagulant Anticardiolipin antibodies Elevated serum homocysteine Heparin-induced thrombocytopenia Other congenital or acquired thrombophilia Stroke (< 1 month) Elective arthroplasty Hip, pelvis, or leg fracture Acute spinal cord injury (< 1 month) Prophylaxis Regimen: Total Risk Factor Score Risk Level Prophylaxis Regimen 0-1 Low Early ambulation 2 Moderate Order ONE of the following: *Sequential Compression Device (SCD) *Heparin 5000 units SQ BID 3-4 Higher Order ONE of the following medications: *Heparin 5000 units SQ TID *Enoxaparin/Lovenox 40 mg SQ daily (WT < 150 kg, CrCl > 30 mL/min) *Enoxaparin/Lovenox 30 mg SQ daily (WT < 150 kg, CrCl > 10-29 mL/min) *Enoxaparin/Lovenox 30 mg SQ BID (WT < 150 kg, CrCl > 30 mL/min) AND/OR *Sequential Compression Device (SCD) 5 or more Highest Order ONE of the following medications: *Heparin 5000 units SQ TID (Preferred with Epidurals) *Enoxaparin/Lovenox 40 mg SQ daily (WT < 150 kg, CrCl > 30 mL/min) *Enoxaparin/Lovenox 30 mg SQ daily (WT < 150 kg, CrCl > 10-29 mL/min) *Enoxaparin/Lovenox 30 mg SQ BID (WT < 150 kg, CrCl > 30 mL/min) AND *Sequential Compression Device (SCD) Assessment and Plan - Assessment and Plan Plan: Severe metabolic acidosis secondary to Diabetic ketoacidosis/renal failure/ diarrhea LARS/CKD Hyperkalemia Dehydration Hypotension Diarrhea Right foot ulcer History of DVT Diabetic retinopathy Diabetic neuropathy Depression Plan: Neuro: Follow neuro status. Avoid sedatives and narcotics. Cardiovascular: Aggressive fluid resuscitation. Hold antihypertensives in view of hypotension. Pulmonary: Supplemental O2, bronchodilators as needed. Tachypnea secondary to severe metabolic acidosis. GI/liver: N.p.o. till improvement in neurologic status and DKA. Aggressive fluid resuscitation for diarrhea. Check stool for C. difficile. Renal/: Aggressive fluid resuscitation. Given 2 Amps of bicarb earlier for severe metabolic acidosis which is most likely secondary to DKA as well as worsening renal failure and diarrhea all contributing. Nephrology consulted and arranging emergent hemodialysis. Patient is nonoliguric usually. He refused Felipe catheter. ID: Recently completed course of vancomycin IV for foot ulcer. Leukocytosis possibly stress related currently. Will watch for any fever. Hold off on antibiotics at this time. Check stool for C. difficile. Endocrine: Insulin drip per DKA protocol. DKA protocol initiated. Aggressive fluid resuscitation. Monitor and replete electrolytes as needed. Heme: Last dose of Eliquis per patient was on 7/14. Plan to resume anticoagulation tomorrow as patient just underwent Vas-Cath placement. Prophylaxis: PPI/SCDs/subcutaneous heparin while off Eliquis. Discussed with ER physician, discussed with Dr. Gifford. Condition critical Time spent on critical care excluding procedures 70 minutes H&P: Quality - VTE Deep Vein Thrombosis/Pulmonary Embolism Present on Admission: Yes
--- NOTE | 2018-02-05 15:44 | IR ---
EXAM DATE: 02/05/2018 2:12 PM EDT AGE/SEX: 37 years / Male INDICATIONS: Patient presents with elevated blood sugar in need of temporary dialysis catheter place ment for treatment. CLINICAL DATA: This is the patient's initial encounter. Patient reports that signs and symptoms have been present for 2 days and indicates a pain score of 8/10. MEDICAL/SURGICAL HISTORY: Hypertension. Diabetes. H/O DVT on Eliquis, CKD Stage IV and Left Fo ot Ulcer . Right Foot Surgery, Left Eye Surgery, RUE AV Fistula COMPARISON: No prior exams available for comparison. FLUORO TIME (min): 0.5 IMAGE SERIES: 2 ACCESS SITE: Right internal jugular vein DEVICE(S): 14 Urdu double lumen Vas Cath Schon XL . . PROCEDURE : 1. Ultrasound guided venipuncture. 2. Fluoroscopic guidance. 3. Central line placement. The risks, benefits and alternatives to the procedure were explained and verbal and written consent w as obtained. The site was prepped in sterile fashion. Full sterile technique was used, including ca p, mask, sterile gloves and gown and a large sterile sheet. Hand hygiene and 2% chlorhexidine prep w as utilized per protocol for cutaneous antisepsis with appropriate dry time for site. Sterile gel an d sterile probe cover were utilized for ultrasound guidance. The skin and subcutaneous tissues were infiltrated with local anesthetic solution. A suitable site a francy the vein was selected with ultrasound and fluoroscopic guidance. A small incision was made. Th e vein was accessed under direct ultrasound visualization using the micropuncture technique. The jacqueline ropuncture set was exchanged for a 0.035 wire. The tract was dilated. The catheter was advanced int o position under direct fluoroscopic visualization, and was advanced with the tip at the junction of the superior vena cava and rt atrium. The catheter was fixed in place with suture and a sterile dres sing was applied. The patient tolerated the procedure well and there were no complications. CONCLUSION: 1. Uncomplicated line placement as above. Electronically signed by: Luis Beyer MD 02/05/2018 3:42 PM EDT
[2018-02-05] MEDS: Heparin 10,000 UNITS/10 ML Vial (for IV use) OTHER PRN (16:18)
[2018-02-05 16:19] LABS: Anion Gap 33 meq/L (5-15); Blood Urea Nitrogen 61 mg/dL (7-18); Calcium 6.8 mg/dL (8.5-10.1); Chloride 100 meq/L (98-107); Glomerular Filtration Rate 15 mL/min (>89); Potassium 4.7 meq/L (3.5-5.1); Sodium 138 meq/L (136-145)
[2018-02-05] MEDS: Sod Chloride 0.9% Inj 1,000 ML OTHER PRN (16:19)
[2018-02-05 16:23] LABS: Glucose,Random 630 mg/dL (74-106)
[2018-02-05 16:38] LABS: Total Protein 5.2 g/dL (6.4-8.2)
[2018-02-05] MEDS: Dextrose 5%/NaCl 0.9% Inj 1,000 ML IV.CONT SCH ×2 (16:45→21:57)
--- NOTE | 2018-02-05 17:25 | P.RAD ---
Post Procedure Progress Note - Pre Procedure Diagnosis (1) Chronic kidney disease, stage 4, severely decreased GFR - Post Procedure Diagnosis (1) Chronic kidney disease, stage 4, severely decreased GFR - Procedure Information Procedure Date: 02/05/18 Supervising Radiologist: Luis Beyer MD Anesthesia: Local - Plan of Activity Patient to Unit: Other (Dialysis) Patient Condition: Fair See PACS Report for procedural detail/treatment. [facility] Radiology Procedures right Internal Jugular Hemodialysis Catheter Non-Tunneled Greenlandic: 14
[2018-02-05 18:36] LABS: Hepatitits B Surface Antigen Nonreactive (Nonreactive)
--- NOTE | 2018-02-05 18:41 | ECG ---
Date Performed: 02/05/2018 Time Performed: 09:04:33 PTAGE: 37 years EKG: SINUS TACHYCARDIA MODERATE ST DEPRESSION ABNORMAL ECG Since PREVIOUS TRACING , no significant change noted PREVIOUS TRACIN01/26/2018 05.08.32 DOCTOR: Louis Chao Interpretating Date/Time 02/05/2018 18:40:34
[2018-02-05] MEDS: Senna/Docusate Sodium 8.6/50 MG Tablet PO SCH (20:20)
[2018-02-05] MEDS: Morphine Inj 4 MG/ML Vial IV.PUSH PRN (21:01)
[2018-02-05 22:01] LABS: ABG PCO2 36 mmHg (38-42); ABG PO2 75 mmHG (61-120)
[2018-02-06 01:17] LABS: % Iron Saturation 11.1 % (20-50); Calcium 6.5 mg/dL (8.5-10.1); Carbon Dioxide 22.6 meq/L (21.0-32.0); Magnesium 1.8 mg/dL (1.5-2.5); Phosphorus 3.8 mg/dL (2.5-4.9); Potassium 3.3 meq/L (3.5-5.1)
[2018-02-06 01:31] LABS: Total Protein 4.7 g/dL (6.4-8.2)
[2018-02-06] MEDS: Potassium Chlor 20 mEq Premix 20 MEQ/100 ML PIGGYBACK IV.SIG PRN ×2 (03:01→06:43)
[2018-02-06] MEDS: Dextrose 5%/NaCl 0.9% Inj 1,000 ML IV.CONT SCH ×2 (03:34→08:10)
[2018-02-06] MEDS: Chlorhexidine Gluconate 2% 1 Pack (2 Cloths) TOPICAL SCH (03:58)
[2018-02-06] MEDS ORDERED: Chlorhexidine Gluconate 2% 1 Pack (2 Cloths) TOPICAL SCH (04:00)
[2018-02-06] MEDS ORDERED: Chlorhexidine Gluconate 2% 1 Pack (2 Cloths) TOPICAL PRN ×2 (04:00)
[2018-02-06] MEDS: Morphine Inj 4 MG/ML Vial IV.PUSH PRN ×3 (06:43→14:58)
[2018-02-06] MEDS: Senna/Docusate Sodium 8.6/50 MG Tablet PO SCH ×2 (08:12→20:59)
[2018-02-06] MEDS: Pantoprazole Inj 40 MG Vial IV.PUSH SCH (08:12)
[2018-02-06 09:04] LABS: Beta Hydroxybutyric Acid 0.33 mmol/L (0.00-0.39); Carbon Dioxide 22.2 meq/L (21.0-32.0); Magnesium 1.9 mg/dL (1.5-2.5); Phosphorus 3.4 mg/dL (2.5-4.9); Potassium 3.5 meq/L (3.5-5.1)
--- NOTE | 2018-02-06 09:18 | P.PNNP ---
Subjective Interval history: Patient reports feeling better today. Hemodialysis started yesterday tolerated well with 2 liters of fluid removed. <NeetuJazlyn - Last Filed: 02/06/18 09:11> Physical Exam Vital signs: Vital Signs 02/05/18 09:52 02/05/18 11:00 02/05/18 12:00 Temperature Pulse Rate 102 H 96 H 88 Respiratory Rate 26 H 26 H 26 H Blood Pressure 120/58 L 92/52 L 100/52 L Pulse Oximetry 100 100 100 02/05/18 15:00 02/05/18 15:01 02/05/18 16:00 Temperature 97.7 F 97.7 F Pulse Rate 96 H 98 H 96 H Respiratory Rate 20 Blood Pressure 128/82 126/70 Pulse Oximetry 100 100 02/05/18 17:00 02/05/18 18:00 02/05/18 19:00 Temperature 97.1 F L 98 F Pulse Rate 96 H 98 H 96 H Respiratory Rate 20 25 H 15 Blood Pressure 128/82 141/80 H 146/83 H Pulse Oximetry 100 100 100 02/05/18 20:00 02/05/18 21:00 02/05/18 21:03 Temperature 98.1 F Pulse Rate 96 H 96 H Respiratory Rate 12 13 12 Blood Pressure 138/77 138/76 Pulse Oximetry 94 L 98 02/05/18 22:00 02/05/18 23:00 02/06/18 00:00 Temperature 99.1 F Pulse Rate 101 H 93 H 92 H Respiratory Rate 20 20 20 Blood Pressure 148/83 H 141/78 H 140/79 Pulse Oximetry 97 96 96 02/06/18 00:31 02/06/18 01:00 02/06/18 02:00 Temperature Pulse Rate 94 H 93 H Respiratory Rate 20 18 Blood Pressure 135/71 133/70 Pulse Oximetry 95 95 95 02/06/18 04:00 02/06/18 05:00 02/06/18 06:00 Temperature 98.3 F Pulse Rate 89 87 86 Respiratory Rate 18 20 18 Blood Pressure 136/76 133/77 134/79 Pulse Oximetry 96 96 96 02/06/18 07:00 02/06/18 08:00 02/06/18 08:49 Temperature 98.7 F Pulse Rate 91 H 87 90 Respiratory Rate 18 18 20 Blood Pressure 151/87 H 139/82 Pulse Oximetry 94 L 95 93 L 02/06/18 09:00 Temperature Pulse Rate 91 H Respiratory Rate 10 L Blood Pressure 135/75 Pulse Oximetry 92 L Intake & Output 02/05/18 02/06/18 02/06/18 18:59 06:59 18:59 Intake Total 2149 / 2149 2099 / 2099 1000 / 1000 Output Total 2049 / 2049 0 / 0 Balance 100 / 100 2099 / 2099 1000 / 1000 Weight 81.647 kg 81.647 kg Intake: IV 2149 / 0 2099 / 2099 1000 / 1000 D5W/Normal Saline Inj 1,000 ML 1999 / 1000 @ 200 mls/hr IV.CONT .Q5H JORDAN Rx#:[id number] Levaquin 750 mg Premix Inj 150 150 / 150 ML @ 100 mls/hr IV.SIG ONCE ONE Rx#:[id number] KCl 20 mEq Premix Inj 20 meq In 100 / 100 100 ml @ 50 mls/hr IV.SIG Q2H PRN Rx#:[id number] NS Inj 1,000 ML @ Wide Open IV. 1999 SIG BOLUS ONE Rx#:[id number] Oral 0 / 0 Output: Urine 0 / 0 0 / 0 Stool 50 / 50 Hemodialysis Amount 1999 Other: Date of Last Bowel Movement 02/05/18 02/05/18 02/05/18 Weight On Admission 81.64 kg - Constitutional no acute distress - Routine HEENT Exam Head: Present: normocephalic ENT: Present: mucous membranes moist - Routine Neck Exam Present: supple. Absent: JVD - Routine Respiratory Exam Present: decreased breath sounds. Absent: rales, rhonchi - Routine Cardiovascular Exam Present: RRR - Routine Abdominal Exam Present: soft, normoactive bowel sounds - Routine Extremities Exam Present: edema, AV fistula, vascular access - Routine Skin Exam Present: dry, warm, wounds - Routine Neurological Exam Present: alert, oriented X3 - Routine Psychiatric Exam Present: cooperative <Jazlyn De Anda - Last Filed: 02/06/18 09:11> Vital signs: Vital Signs 02/07/18 12:00 02/07/18 12:25 02/07/18 15:00 Temperature 98 F Pulse Rate 91 H Respiratory Rate 16 Blood Pressure 199/104 H 199/109 H Pulse Oximetry 92 L 95 02/07/18 16:00 02/07/18 17:04 02/07/18 20:00 Temperature 98 F 98.4 F 97.8 F Pulse Rate 71 72 73 Respiratory Rate 16 18 Blood Pressure 189/100 H 189/104 H 150/88 H Pulse Oximetry 94 L 93 L 95 02/08/18 00:00 02/08/18 08:05 Temperature 98.1 F 97.8 F Pulse Rate 81 86 Respiratory Rate 16 18 Blood Pressure 149/85 H 162/92 H Pulse Oximetry 94 L 94 L Intake & Output 02/07/18 02/08/18 02/08/18 18:59 06:59 18:59 Intake Total 480 / 480 Output Total 1100 / 1100 600 / 600 Balance -1100 / -1100 -120 / -120 Weight 81.6 kg Intake: Oral 480 / 480 Output: Urine 1100 / 1100 600 / 600 Other: # Voids 3 Date of Last Bowel Movement 02/07/18 02/07/18 # Bowel Movements 1 <Bay Gifford - Last Filed: 02/08/18 11:30> Assessment and Plan - Assessment (1) Chronic kidney disease, stage 4, severely decreased GFR Code(s): N18.4 - Chronic kidney disease, stage 4 (severe) Status: Acute Plan: The patient has advanced renal disease and he is approaching end-stage. The He has a A-V fistula with positive thrill and bruit but not ready for use Vas cath placed and hemodialysis started yesterday with 2 liters of fluid removed Epogen with hemodialysis Will monitor labs and urinary output Labs are pending for today. (2) DKA, type 1 Code(s): E10.10 - Type 1 diabetes mellitus with ketoacidosis without coma Status: Acute Qualifiers: Diabetes mellitus complication detail: without coma Qualified Code(s): E10.10 - Type 1 diabetes mellitus with ketoacidosis without coma Plan: DKA protocol per CC Still on insulin gtt, blood sugars have improved. (3) Pneumonia Code(s): J18.9 - Pneumonia, unspecified organism Status: Acute Qualifiers: Pneumonia type: due to unspecified organism Laterality: right Lung location: upper lobe of lung Qualified Code(s): J18.1 - Lobar pneumonia, unspecified organism <Jazlyn De Anda - Last Filed: 02/06/18 09:11> - Assessment (1) Chronic kidney disease, stage 4, severely decreased GFR Code(s): N18.4 - Chronic kidney disease, stage 4 (severe) Status: Acute (2) DKA, type 1 Code(s): E10.10 - Type 1 diabetes mellitus with ketoacidosis without coma Status: Acute Qualifiers: Diabetes mellitus complication detail: without coma Qualified Code(s): E10.10 - Type 1 diabetes mellitus with ketoacidosis without coma (3) Pneumonia Code(s): J18.9 - Pneumonia, unspecified organism Status: Acute Qualifiers: Pneumonia type: due to unspecified organism Laterality: right Lung location: upper lobe of lung Qualified Code(s): J18.1 - Lobar pneumonia, unspecified organism (4) Hypertension Code(s): I10 - Essential (primary) hypertension Status: Acute - Attending Attestation Patient seen and examined, agree with above. Started on HD. AVF still need maturation, Need PermCath, on Eliquis and ASA. <Bay Gifford - Last Filed: 02/08/18 11:30>
[2018-02-06 09:40] LABS: Total Protein 4.5 g/dL (6.4-8.2)
[2018-02-06] MEDS ORDERED: Potassium Bicarbonate 25 MEQ Effervescent Tablet PO ONE (09:43)
--- NOTE | 2018-02-06 09:51 | P.PNCC ---
Subjective Subjective Remarks/Hospital Course: 02/06: gap is closing. getting HD again today. no complaints. transitioning to SSI. ROS negative. Objective Vital Signs / I&O: Vital Signs 02/05/18 09:52 02/05/18 11:00 02/05/18 12:00 Temperature Pulse Rate 102 H 96 H 88 Respiratory Rate 26 H 26 H 26 H Blood Pressure 120/58 L 92/52 L 100/52 L Pulse Oximetry 100 100 100 02/05/18 15:00 02/05/18 15:01 02/05/18 16:00 Temperature 36.5 C 36.5 C Pulse Rate 96 H 98 H 96 H Respiratory Rate 20 Blood Pressure 128/82 126/70 Pulse Oximetry 100 100 02/05/18 17:00 02/05/18 18:00 02/05/18 19:00 Temperature 36.2 C L 36.6 C Pulse Rate 96 H 98 H 96 H Respiratory Rate 20 25 H 15 Blood Pressure 128/82 141/80 H 146/83 H Pulse Oximetry 100 100 100 02/05/18 20:00 02/05/18 21:00 02/05/18 21:03 Temperature 36.7 C Pulse Rate 96 H 96 H Respiratory Rate 12 13 12 Blood Pressure 138/77 138/76 Pulse Oximetry 94 L 98 02/05/18 22:00 02/05/18 23:00 02/06/18 00:00 Temperature 37.3 C Pulse Rate 101 H 93 H 92 H Respiratory Rate 20 20 20 Blood Pressure 148/83 H 141/78 H 140/79 Pulse Oximetry 97 96 96 02/06/18 00:31 02/06/18 01:00 02/06/18 02:00 Temperature Pulse Rate 94 H 93 H Respiratory Rate 20 18 Blood Pressure 135/71 133/70 Pulse Oximetry 95 95 95 02/06/18 04:00 02/06/18 05:00 02/06/18 06:00 Temperature 36.8 C Pulse Rate 89 87 86 Respiratory Rate 18 20 18 Blood Pressure 136/76 133/77 134/79 Pulse Oximetry 96 96 96 02/06/18 07:00 02/06/18 08:00 02/06/18 08:49 Temperature 37.1 C Pulse Rate 91 H 87 90 Respiratory Rate 18 18 20 Blood Pressure 151/87 H 139/82 Pulse Oximetry 94 L 95 93 L 02/06/18 09:00 Temperature Pulse Rate 91 H Respiratory Rate 10 L Blood Pressure 135/75 Pulse Oximetry 92 L Intake & Output 02/05/18 02/06/18 02/06/18 18:59 06:59 18:59 Intake Total 2149 / 2099 1000 / 1000 Output Total 2049 0 / 0 Balance 100 / 100 2099 / 2099 1000 / 1000 Weight 81.647 kg 81.647 kg Intake: IV 2149 1000 / 1000 D5W/Normal Saline Inj 1,000 ML 1999 / 1000 @ 200 mls/hr IV.CONT .Q5H JORDAN Rx#:[id number] Levaquin 750 mg Premix Inj 150 150 / 150 ML @ 100 mls/hr IV.SIG ONCE ONE Rx#:[id number] KCl 20 mEq Premix Inj 20 meq In 100 / 100 100 ml @ 50 mls/hr IV.SIG Q2H PRN Rx#:[id number] NS Inj 1,000 ML @ Wide Open IV. 1999 SIG BOLUS ONE Rx#:[id number] Oral 0 / 0 Output: Urine 0 / 0 0 / 0 Stool 50 / 50 Hemodialysis Amount 1999 Other: Date of Last Bowel Movement 02/05/18 02/05/18 02/05/18 Weight On Admission 81.64 kg Result Diagrams: 02/05/18 09:00 02/06/18 08:15 Other Results: gen: young male who appears older than stated age, lying in bed, no acute distress. heent: nc. at. perrl. mmm. neck: no jvd. trachea midline. chest: unlabored. equal chest rise. cv: rrr. sinus. abd: soft, nontender, nondistended. no guarding. extr: +thrill for AVF. distal pulses 2+. neuro: RASS 0. no focal deficits. Assessment and Plan - Assessment and Plan Plan: Severe metabolic acidosis secondary to Diabetic ketoacidosis/renal failure/ diarrhea LARS/CKD Hyperkalemia- resolved Dehydration- resolved Hypotension- resolved Diarrhea- resolved Right foot ulcer History of DVT Diabetic retinopathy Diabetic neuropathy Depression DKA- severe, resolved Plan: Neuro: Follow neuro status. Avoid sedatives and narcotics. Cardiovascular: Aggressive fluid resuscitation. Hold antihypertensives in view of recent hypotension. Pulmonary: Supplemental O2, bronchodilators as needed. GI/liver: advance diet as tolerated. d/c mivf. c. diff. negative. Renal/: Nephrology consulted. repeat HD today. no indication for kapoor catheter. ID: Recently completed course of vancomycin IV for foot ulcer. Leukocytosis possibly stress related currently. Will watch for any fever. Hold off on antibiotics at this time. Endocrine: d/c insulin drip. levemir 5mg SQ daily. q4h SSI, med scale. Monitor and replete electrolytes as needed. Heme: Last dose of Eliquis per patient was on 02/03. Plan to resume anticoagulation today Prophylaxis: PPI/SCDs/restart eliquis. Dispo: transfer out of ICU. consult hospitalist.
[2018-02-06] MEDS ORDERED: Insulin Detemir Inj 1,000 UNIT/10 ML Vial SQ ONE (10:45)
[2018-02-06] MEDS ORDERED: Magnesium Sulfate Inj 2 GM in Sodium Chlor 0.9% Inj 96 ML IV.SIG ONE (11:00)
[2018-02-06] MEDS: Heparin 10,000 UNITS/10 ML Vial (for IV use) OTHER PRN (11:05)
[2018-02-06] MEDS: Insulin NovoLIN Regular Correctional Sugar Inj SQ SCH ×4 (12:56→23:51)
[2018-02-06 15:15] LABS: Hepatitis A IgM Antibody Nonreactive (Nonreactive)
[2018-02-06] MEDS ORDERED: Insulin Detemir Inj 1,000 UNIT/10 ML Vial SQ SCH (21:00)
[2018-02-07 02:08] LABS: Hematocrit 22.4 % (39.0-51.0); Hemoglobin 7.5 gm/dL (13.0-17.0); Mean Corpuscular HGB Conc 33.3 % (32.0-36.0); Mean Corpuscular Hemoglobin 28.7 pg (27.0-34.0); Mean Corpuscular Volume 86.3 fL (80.0-100.0); Mean Platelet Volume 7.2 fL (7.0-11.0); Platelet Count 197 th/mm3 (150-450); Red Cell Distribution Width 14.7 % (11.6-17.2); White Blood Count 6.4 th/mm3 (4.0-11.0)
[2018-02-07 02:47] LABS: Calcium 7.2 mg/dL (8.5-10.1); Carbon Dioxide 26.8 meq/L (21.0-32.0); Potassium 3.6 meq/L (3.5-5.1)
[2018-02-07 03:06] LABS: Total Protein 4.5 g/dL (6.4-8.2)
[2018-02-07] MEDS: Insulin NovoLIN Regular Correctional Sugar Inj SQ SCH ×7 (04:05→20:25)
[2018-02-07] MEDS: Chlorhexidine Gluconate 2% 1 Pack (2 Cloths) TOPICAL SCH (05:02)
[2018-02-07] MEDS: Senna/Docusate Sodium 8.6/50 MG Tablet PO SCH ×2 (08:19→20:17)
[2018-02-07] MEDS: Sertraline 100 MG Tablet PO SCH (08:19)
[2018-02-07] MEDS: Topiramate 25 MG Tablet PO SCH (08:19)
[2018-02-07] MEDS: Loratadine 10 MG Tablet PO SCH (08:20)
[2018-02-07] MEDS: Pantoprazole Inj 40 MG Vial IV.PUSH SCH (08:20)
--- NOTE | 2018-02-07 15:07 | P.PNIM ---
Subjective Interval history: The patient said he was a little nauseous. He said he is unable to take care of himself at home because of his living situation. He would be amenable to going to a rehab type discharge. Discussed with nursing. Physical Exam Vital signs: Vital Signs 02/06/18 16:00 02/06/18 20:00 02/07/18 00:00 Temperature 98.0 F 98.5 F Pulse Rate 90 92 H 93 H Respiratory Rate 12 14 20 Blood Pressure 162/92 H 185/95 H 136/82 Pulse Oximetry 94 L 93 L 93 L 02/07/18 04:00 02/07/18 12:25 Temperature 98.1 F Pulse Rate 85 Respiratory Rate 18 Blood Pressure 165/92 H Pulse Oximetry 93 L 95 Intake & Output 02/06/18 02/07/18 02/07/18 18:59 06:59 18:59 Intake Total 2446.5 / 2446.5 Output Total 1999 / 1999 0 / 0 Balance 446.5 / 446.5 0 / 0 Weight 81.647 kg Intake: IV 1696.5 / 1696.5 D5W/Normal Saline Inj 1,000 ML 1412 / 1412 @ 200 mls/hr IV.CONT .Q5H JORDAN Rx#:[id number] NovoLIN R (IV Infusion) 100 84.5 / 84.5 UNIT In NS Inj 99 ML @ 8 UNITS/ HR 8 mls/hr IV.CONT TITRATE PRN Rx#:[id number] Magnesium Sulfate Inj 2 GM In 100 / 100 NS Inj 96 ML @ 50 mls/hr IV.SIG ONCE ONE Rx#:[id number] KCl 20 mEq Premix Inj 20 meq In 100 / 100 100 ml @ 50 mls/hr IV.SIG Q2H PRN Rx#:[id number] Oral 750 / 750 Output: Urine 1999 0 / 0 Other: Date of Last Bowel Movement 02/05/18 02/05/18 Narrative: gen: young male who appears older than stated age, lying in bed, no acute distress. heent: nc. at. perrl. mmm. neck: no jvd. trachea midline. chest: unlabored. equal chest rise. cv: rrr. sinus. abd: soft, nontender, nondistended. no guarding. extr: +thrill for AVF. distal pulses 2+. neuro: no focal deficits. Results - Labs CBC & Chem 7: 02/07/18 01:54 02/07/18 01:54 Laboratory Results - last 24 hr 02/05/18 02/06/18 02/06/18 14:25 15:13 20:18 WBC RBC Hgb Hct MCV MCH MCHC RDW Plt Count MPV Sodium Potassium Chloride Carbon Dioxide Anion Gap BUN Creatinine Estimated GFR POC Glucose 122 H 212 H Random Glucose Calcium Prot Corrected Calcium Magnesium Total Protein Hepatitis A IgM Ab Nonreactive 02/06/18 02/06/18 02/07/18 20:45 23:38 01:54 WBC RBC Hgb Hct MCV MCH MCHC RDW Plt Count MPV Sodium Potassium Chloride Carbon Dioxide Anion Gap BUN Creatinine Estimated GFR POC Glucose 217 H Random Glucose Calcium Prot Corrected Calcium Magnesium 2.2 2.0 Total Protein Hepatitis A IgM Ab 02/07/18 02/07/18 02/07/18 01:54 01:54 03:56 WBC 6.4 RBC 2.60 L Hgb 7.5 L Hct 22.4 L MCV 86.3 D MCH 28.7 MCHC 33.3 RDW 14.7 D Plt Count 197 D MPV 7.2 Sodium 144 Potassium 3.6 Chloride 108 H Carbon Dioxide 26.8 Anion Gap 9 BUN 26 H Creatinine 3.24 H Estimated GFR 22 L POC Glucose 122 H Random Glucose 148 H Calcium 7.2 L* Prot Corrected Calcium 8.7 Magnesium Total Protein 4.5 L Hepatitis A IgM Ab 02/07/18 02/07/18 08:18 12:31 WBC RBC Hgb Hct MCV MCH MCHC RDW Plt Count MPV Sodium Potassium Chloride Carbon Dioxide Anion Gap BUN Creatinine Estimated GFR POC Glucose 147 H 366 H Random Glucose Calcium Prot Corrected Calcium Magnesium Total Protein Hepatitis A IgM Ab Microbiology 02/05/18 10:13 Blood - Peripheral Aerobic Blood Culture - Preliminary No growth in 2 days 02/05/18 10:13 Blood - Peripheral Anaerobic Blood Culture - Preliminary No growth in 2 days 02/05/18 10:19 Blood - Peripheral Aerobic Blood Culture - Preliminary No growth in 2 days 02/05/18 10:19 Blood - Peripheral Anaerobic Blood Culture - Preliminary No growth in 2 days Assessment and Plan - Plan Severe metabolic acidosis Secondary to diabetic ketoacidosis/renal failure/diarrhea. - d/c insulin drip. - Levemir 10 units daily, 15 units HS. - SSI, med scale. - Monitor and replete electrolytes as needed. LARS/CKD Nephrology consult appreciated. - HD per nephrology. - avoid nephrotoxins. ID Recently completed course of vancomycin IV for foot ulcer. Leukocytosis possibly stress related. - Will watch for any fever. - Hold off on antibiotics at this time. History of DVT Last dose of Eliquis per patient was on 02/03. - resumed Eliquis. HTN Had hypotension earlier, but now quite hypertensive. - clonidine as needed. - amlodipine 5 mg daily added. Adjust as needed. Noncompliance The pt says he has poor living conditions. - case management assistance appreciated. - PT eval. Anemia S/t above conditions. - follow CBC. Prophylaxis: PPI/SCDs/restart eliquis.
[2018-02-07] MEDS ORDERED: amLODIPine 5 MG Tablet PO SCH (15:15)
--- NOTE | 2018-02-07 15:58 | P.PNNP ---
Subjective Interval history: Reports feeling nausea today, just received Zofran. No shortness of breath. <Jazlyn De Anda - Last Filed: 02/07/18 15:52> Physical Exam Vital signs: Vital Signs 02/06/18 16:00 02/06/18 20:00 02/07/18 00:00 Temperature 98.0 F 98.5 F Pulse Rate 90 92 H 93 H Respiratory Rate 12 14 20 Blood Pressure 162/92 H 185/95 H 136/82 Pulse Oximetry 94 L 93 L 93 L 02/07/18 04:00 02/07/18 12:25 02/07/18 15:00 Temperature 98.1 F Pulse Rate 85 Respiratory Rate 18 Blood Pressure 165/92 H 199/109 H Pulse Oximetry 93 L 95 Intake & Output 02/06/18 02/07/18 02/07/18 18:59 06:59 18:59 Intake Total 2446.5 / 2446.5 Output Total 1999 / 1999 0 / 0 1100 / 1100 Balance 446.5 / 446.5 0 / 0 -1100 / -1100 Weight 81.647 kg Intake: IV 1696.5 / 1696.5 D5W/Normal Saline Inj 1,000 ML 1412 / 1412 @ 200 mls/hr IV.CONT .Q5H JORDAN Rx#:[id number] NovoLIN R (IV Infusion) 100 84.5 / 84.5 UNIT In NS Inj 99 ML @ 8 UNITS/ HR 8 mls/hr IV.CONT TITRATE PRN Rx#:[id number] Magnesium Sulfate Inj 2 GM In 100 / 100 NS Inj 96 ML @ 50 mls/hr IV.SIG ONCE ONE Rx#:[id number] KCl 20 mEq Premix Inj 20 meq In 100 / 100 100 ml @ 50 mls/hr IV.SIG Q2H PRN Rx#:[id number] Oral 750 / 750 Output: Urine 1999 0 / 0 1100 / 1100 Other: Date of Last Bowel Movement 02/05/18 02/05/18 02/07/18 # Bowel Movements 1 - Constitutional no acute distress - Routine HEENT Exam ENT: Present: mucous membranes moist - Routine Neck Exam Present: supple. Absent: JVD - Routine Respiratory Exam Present: CTA bilaterally. Absent: rales, rhonchi - Routine Cardiovascular Exam Present: RRR - Routine Abdominal Exam Present: soft, normoactive bowel sounds - Routine Extremities Exam Present: AV fistula, vascular access - Routine Skin Exam Present: dry, warm - Routine Neurological Exam Present: alert, oriented X3 <Jazlyn De Anda - Last Filed: 02/07/18 15:52> Vital signs: Vital Signs 02/07/18 12:00 02/07/18 12:25 02/07/18 15:00 Temperature 98 F Pulse Rate 91 H Respiratory Rate 16 Blood Pressure 199/104 H 199/109 H Pulse Oximetry 92 L 95 02/07/18 16:00 02/07/18 17:04 02/07/18 20:00 Temperature 98 F 98.4 F 97.8 F Pulse Rate 71 72 73 Respiratory Rate 16 18 Blood Pressure 189/100 H 189/104 H 150/88 H Pulse Oximetry 94 L 93 L 95 02/08/18 00:00 02/08/18 08:05 02/08/18 11:36 Temperature 98.1 F 97.8 F 97.7 F Pulse Rate 81 86 78 Respiratory Rate 16 18 18 Blood Pressure 149/85 H 162/92 H 143/85 H Pulse Oximetry 94 L 94 L 94 L Intake & Output 02/07/18 02/08/18 02/08/18 18:59 06:59 18:59 Intake Total 480 / 480 Output Total 1100 / 1100 600 / 600 Balance -1100 / -1100 -120 / -120 Weight 81.6 kg Intake: Oral 480 / 480 Output: Urine 1100 / 1100 600 / 600 Other: # Voids 3 Date of Last Bowel Movement 02/07/18 02/07/18 # Bowel Movements 1 <Bay Gifford - Last Filed: 02/08/18 11:52> Assessment and Plan - Assessment (1) Chronic kidney disease, stage 4, severely decreased GFR Code(s): N18.4 - Chronic kidney disease, stage 4 (severe) Status: Acute Plan: The patient has advanced renal disease and he is approaching end-stage. He has a A-V fistula with positive thrill and bruit but not ready for use Vas cath placed and hemodialysis started on 02/05 Epogen with hemodialysis Will monitor labs and urinary output Hemodialysis planned for tomorrow Outpatient hemodialysis will need to be arranged. Case management consulted. (2) DKA, type 1 Code(s): E10.10 - Type 1 diabetes mellitus with ketoacidosis without coma Status: Acute Qualifiers: Diabetes mellitus complication detail: without coma Qualified Code(s): E10.10 - Type 1 diabetes mellitus with ketoacidosis without coma Plan: blood sugars labile (3) Pneumonia Code(s): J18.9 - Pneumonia, unspecified organism Status: Acute Qualifiers: Pneumonia type: due to unspecified organism Laterality: right Lung location: upper lobe of lung Qualified Code(s): J18.1 - Lobar pneumonia, unspecified organism <Jazlyn De Anda - Last Filed: 02/07/18 15:52> - Assessment (1) Chronic kidney disease, stage 4, severely decreased GFR Code(s): N18.4 - Chronic kidney disease, stage 4 (severe) Status: Acute (2) DKA, type 1 Code(s): E10.10 - Type 1 diabetes mellitus with ketoacidosis without coma Status: Acute Qualifiers: Diabetes mellitus complication detail: without coma Qualified Code(s): E10.10 - Type 1 diabetes mellitus with ketoacidosis without coma (3) Pneumonia Code(s): J18.9 - Pneumonia, unspecified organism Status: Acute Qualifiers: Pneumonia type: due to unspecified organism Laterality: right Lung location: upper lobe of lung Qualified Code(s): J18.1 - Lobar pneumonia, unspecified organism (4) Hypertension Code(s): I10 - Essential (primary) hypertension Status: Acute - Attending Attestation Patient seen and examined, agree with above. Continue HD, Need PermCath, and SNF placement. <Bay Gifford - Last Filed: 02/08/18 11:52>
[2018-02-07] MEDS ORDERED: amLODIPine 5 MG Tablet PO ONE (16:58)
[2018-02-07] MEDS ORDERED: Insulin Detemir Inj 1,000 UNIT/10 ML Vial SQ SCH (21:00)
[2018-02-07 21:38] LABS: Bilirubin,Urine Negative (Negative); Clarity,Urine Clear (Clear); Color,Urine Straw (Yellw/Straw); Glucose,Urine (UA) 500 or Greater mg/dL (Negative); Leukocyte Esterase,Urine Negative (Negative); Nitrite,Urine Negative (Negative); Specific Gravity,Urine 1.008 (1.002-1.035)
[2018-02-08] MEDS: Insulin NovoLIN Regular Correctional Sugar Inj SQ SCH ×6 (00:17→20:24)
[2018-02-08] MEDS: Chlorhexidine Gluconate 2% 1 Pack (2 Cloths) TOPICAL SCH (03:58)
[2018-02-08 05:47] LABS: Hematocrit 23.1 % (39.0-51.0); Hemoglobin 7.8 gm/dL (13.0-17.0); Mean Corpuscular HGB Conc 33.9 % (32.0-36.0); Mean Corpuscular Hemoglobin 29.2 pg (27.0-34.0); Mean Corpuscular Volume 86.1 fL (80.0-100.0); Mean Platelet Volume 7.1 fL (7.0-11.0); Platelet Count 215 th/mm3 (150-450); Red Blood Count 2.69 mil/mm3 (4.50-5.90); Red Cell Distribution Width 14.5 % (11.6-17.2); White Blood Count 5.9 th/mm3 (4.0-11.0)
[2018-02-08 05:51] LABS: Calcium 7.8 mg/dL (8.5-10.1); Carbon Dioxide 27.5 meq/L (21.0-32.0); Potassium 3.4 meq/L (3.5-5.1)
[2018-02-08] MEDS: Topiramate 25 MG Tablet PO SCH (08:00)
[2018-02-08] MEDS: Senna/Docusate Sodium 8.6/50 MG Tablet PO SCH ×2 (08:07→20:25)
[2018-02-08] MEDS: Sertraline 100 MG Tablet PO SCH (08:07)
[2018-02-08] MEDS: Loratadine 10 MG Tablet PO SCH (08:08)
[2018-02-08] MEDS: amLODIPine 5 MG Tablet PO SCH (08:08)
[2018-02-08] MEDS: Pantoprazole Inj 40 MG Vial IV.PUSH SCH (08:08)
[2018-02-08] MEDS ORDERED: Insulin Detemir Inj 1,000 UNIT/10 ML Vial SQ SCH (09:00)
--- NOTE | 2018-02-08 10:53 | P.PNNP ---
Subjective Interval history: Nausea has resolved. Plan for hemodialysis today. Creatinine at 3.52 <Jazlyn De Anda - Last Filed: 02/08/18 10:47> Physical Exam Vital signs: Vital Signs 02/07/18 12:00 02/07/18 12:25 02/07/18 15:00 Temperature 98 F Pulse Rate 91 H Respiratory Rate 16 Blood Pressure 199/104 H 199/109 H Pulse Oximetry 92 L 95 02/07/18 16:00 02/07/18 17:04 02/07/18 20:00 Temperature 98 F 98.4 F 97.8 F Pulse Rate 71 72 73 Respiratory Rate 16 18 Blood Pressure 189/100 H 189/104 H 150/88 H Pulse Oximetry 94 L 93 L 95 02/08/18 00:00 02/08/18 08:05 Temperature 98.1 F 97.8 F Pulse Rate 81 86 Respiratory Rate 16 18 Blood Pressure 149/85 H 162/92 H Pulse Oximetry 94 L 94 L Intake & Output 02/07/18 02/08/18 02/08/18 18:59 06:59 18:59 Intake Total 480 / 480 Output Total 1100 / 1100 600 / 600 Balance -1100 / -1100 -120 / -120 Weight 81.6 kg Intake: Oral 480 / 480 Output: Urine 1100 / 1100 600 / 600 Other: # Voids 3 Date of Last Bowel Movement 02/07/18 02/07/18 # Bowel Movements 1 - Constitutional no acute distress - Routine HEENT Exam Head: Present: normocephalic ENT: Present: mucous membranes moist - Routine Neck Exam Present: supple. Absent: JVD - Routine Respiratory Exam Present: CTA bilaterally - Routine Cardiovascular Exam Present: RRR - Routine Abdominal Exam Present: soft, normoactive bowel sounds - Routine Extremities Exam Present: AV fistula, vascular access. Absent: edema - Routine Skin Exam Present: dry, warm, wounds - Routine Neurological Exam Present: alert, oriented X3 <Jazlyn De Anda - Last Filed: 02/08/18 10:47> Vital signs: Vital Signs 03/01/18 00:00 03/01/18 04:49 03/01/18 08:00 Temperature 98.7 F 98.5 F Pulse Rate 85 88 Respiratory Rate 17 18 16 Blood Pressure 121/66 137/76 Pulse Oximetry 93 L 94 L 03/01/18 20:00 03/01/18 22:07 Temperature 98.6 F Pulse Rate 89 Respiratory Rate 17 16 Blood Pressure 136/80 Pulse Oximetry 93 L Intake & Output 03/01/18 03/01/18 03/02/18 06:59 18:59 06:59 Intake Total 110 / 110 Output Total 3500 / 3500 Balance -3500 / -3500 110 / 110 Weight 81.6 kg Intake: IV 110 / 110 Venofer Inj 200 MG In NS Inj 110 / 110 100 ML @ 110 mls/hr IV.SIG DAILY JORDAN Rx#:[id number] Output: Urine 1500 / 1500 Hemodialysis Amount 1999 Other: # Voids 2 Date of Last Bowel Movement 02/27/18 02/27/18 <Bay Gifford - Last Filed: 03/01/18 23:35> Assessment and Plan - Assessment (1) Chronic kidney disease, stage 4, severely decreased GFR Code(s): N18.4 - Chronic kidney disease, stage 4 (severe) Status: Acute Plan: The patient has advanced renal disease and he is approaching end-stage. He has a A-V fistula with positive thrill and bruit but not ready for use Vas cath placed and hemodialysis started on 02/05 Continue epogen with hemodialysis Will monitor labs and urinary output Hemodialysis planned for today will remove fluid as tolerated Hypokalemia will adjust K bath with dialysis. Outpatient hemodialysis will need to be arranged, information has been faxed to [facility] per case management (2) DKA, type 1 Code(s): E10.10 - Type 1 diabetes mellitus with ketoacidosis without coma Status: Acute Qualifiers: Diabetes mellitus complication detail: without coma Qualified Code(s): E10.10 - Type 1 diabetes mellitus with ketoacidosis without coma Plan: blood sugars continues to be labile (3) Pneumonia Code(s): J18.9 - Pneumonia, unspecified organism Status: Acute Qualifiers: Pneumonia type: due to unspecified organism Laterality: right Lung location: upper lobe of lung Qualified Code(s): J18.1 - Lobar pneumonia, unspecified organism (4) Hypertension Code(s): I10 - Essential (primary) hypertension Status: Acute Plan: Hypertensive with SBP 150's to 160's On amlodipine will add hydralazine. <Jazlyn De Anda - Last Filed: 02/08/18 10:47> - Assessment (1) End stage renal disease on dialysis Code(s): N18.6 - End stage renal disease; Z99.2 - Dependence on renal dialysis Status: Chronic (2) DKA, type 1 Code(s): E10.10 - Type 1 diabetes mellitus with ketoacidosis without coma Status: Acute Qualifiers: Diabetes mellitus complication detail: without coma Qualified Code(s): E10.10 - Type 1 diabetes mellitus with ketoacidosis without coma (3) Anemia Code(s): D64.9 - Anemia, unspecified Status: Chronic (4) Hypertension Code(s): I10 - Essential (primary) hypertension Status: Acute - Attending Attestation Patient seen and examined, agree with above. HD as per schedule. Out patient HD arrangement. <Bay Gifford - Last Filed: 03/01/18 23:35>
--- NOTE | 2018-02-08 11:08 | P.PNIM ---
Subjective Interval history: The patient was wondering if he needed antibiotics for his left heel ulcer. He also wanted to know if he needed antibiotics for pneumonia. He said when his blood sugar was low this morning he felt like he was drowning. Discussed with nursing. Physical Exam Vital signs: Vital Signs 02/07/18 12:00 02/07/18 12:25 02/07/18 15:00 Temperature 98 F Pulse Rate 91 H Respiratory Rate 16 Blood Pressure 199/104 H 199/109 H Pulse Oximetry 92 L 95 02/07/18 16:00 02/07/18 17:04 02/07/18 20:00 Temperature 98 F 98.4 F 97.8 F Pulse Rate 71 72 73 Respiratory Rate 16 18 Blood Pressure 189/100 H 189/104 H 150/88 H Pulse Oximetry 94 L 93 L 95 02/08/18 00:00 02/08/18 08:05 Temperature 98.1 F 97.8 F Pulse Rate 81 86 Respiratory Rate 16 18 Blood Pressure 149/85 H 162/92 H Pulse Oximetry 94 L 94 L Intake & Output 02/07/18 02/08/18 02/08/18 18:59 06:59 18:59 Intake Total 480 / 480 Output Total 1100 / 1100 600 / 600 Balance -1100 / -1100 -120 / -120 Weight 81.6 kg Intake: Oral 480 / 480 Output: Urine 1100 / 1100 600 / 600 Other: # Voids 3 Date of Last Bowel Movement 02/07/18 02/07/18 # Bowel Movements 1 Narrative: gen: young male who appears older than stated age, lying in bed, no acute distress. heent: nc. at. perrl. mmm. neck: no jvd. trachea midline. chest: unlabored. equal chest rise. cv: rrr. sinus. abd: soft, nontender, nondistended. no guarding. extr: +thrill for AVF. distal pulses 2+. Chronic ulcer on left heel. neuro: no focal deficits. Results - Labs CBC & Chem 7: 02/08/18 05:06 02/08/18 05:06 Laboratory Results - last 24 hr 02/07/18 02/07/18 02/07/18 12:31 16:58 18:30 WBC RBC Hgb Hct MCV MCH MCHC RDW Plt Count MPV Sodium Potassium Chloride Carbon Dioxide Anion Gap BUN Creatinine Estimated GFR POC Glucose 366 H 187 H Random Glucose Calcium Urine Color Straw Urine Clarity Clear Urine pH 7.0 Ur Specific [place] 1.008 Urine Protein 500 or greater Urine Glucose (UA) 500 or greater Urine Ketones Trace Urine Occult Blood Small H Urine Nitrate Negative Urine Bilirubin Negative Urine Urobilinogen Less than 2 Ur Leukocyte Esterase Negative Urine RBC 1 Urine WBC 1 Micro UA Comment Culture not ind Urine Culture Comments Culture not ind 02/07/18 02/08/18 02/08/18 20:16 00:09 03:45 WBC RBC Hgb Hct MCV MCH MCHC RDW Plt Count MPV Sodium Potassium Chloride Carbon Dioxide Anion Gap BUN Creatinine Estimated GFR POC Glucose 90 283 H 106 Random Glucose Calcium Urine Color Urine Clarity Urine pH Ur Specific [place] Urine Protein Urine Glucose (UA) Urine Ketones Urine Occult Blood Urine Nitrate Urine Bilirubin Urine Urobilinogen Ur Leukocyte Esterase Urine RBC Urine WBC Micro UA Comment Urine Culture Comments 02/08/18 02/08/18 02/08/18 05:06 05:06 07:40 WBC 5.9 RBC 2.69 L Hgb 7.8 L Hct 23.1 L MCV 86.1 MCH 29.2 MCHC 33.9 RDW 14.5 Plt Count 215 MPV 7.1 Sodium 143 Potassium 3.4 L Chloride 107 Carbon Dioxide 27.5 Anion Gap 9 BUN 34 H Creatinine 3.52 H Estimated GFR 20 L POC Glucose 39 L* Random Glucose 69 L Calcium 7.8 L Urine Color Urine Clarity Urine pH Ur Specific [place] Urine Protein Urine Glucose (UA) Urine Ketones Urine Occult Blood Urine Nitrate Urine Bilirubin Urine Urobilinogen Ur Leukocyte Esterase Urine RBC Urine WBC Micro UA Comment Urine Culture Comments 02/08/18 08:04 WBC RBC Hgb Hct MCV MCH MCHC RDW Plt Count MPV Sodium Potassium Chloride Carbon Dioxide Anion Gap BUN Creatinine Estimated GFR POC Glucose 103 Random Glucose Calcium Urine Color Urine Clarity Urine pH Ur Specific [place] Urine Protein Urine Glucose (UA) Urine Ketones Urine Occult Blood Urine Nitrate Urine Bilirubin Urine Urobilinogen Ur Leukocyte Esterase Urine RBC Urine WBC Micro UA Comment Urine Culture Comments Microbiology 02/05/18 10:13 Blood - Peripheral Aerobic Blood Culture - Preliminary No growth in 3 days 02/05/18 10:13 Blood - Peripheral Anaerobic Blood Culture - Preliminary No growth in 3 days 02/05/18 10:19 Blood - Peripheral Aerobic Blood Culture - Preliminary No growth in 3 days 02/05/18 10:19 Blood - Peripheral Anaerobic Blood Culture - Preliminary No growth in 3 days Assessment and Plan - Plan Severe metabolic acidosis/ DM Secondary to diabetic ketoacidosis/renal failure/diarrhea. - d/c insulin drip. - Levemir 5 units HS as blood sugar is very labile. - SSI, med scale. - Monitor and replete electrolytes as needed. - consider endocrinology consult. LARS/CKD Nephrology consult appreciated. - HD per nephrology. - avoid nephrotoxins. Hypokalemia Likely s/t decreased PO intake. - managed with dialysis. - follow BMP. ID Recently completed course of vancomycin IV for foot ulcer. - Will watch for any fever. - Hold off on antibiotics at this time. - repeat CXR as endorsing sputum production. History of DVT Last dose of Eliquis per patient was on 02/03. - resumed Eliquis. HTN Had hypotension earlier, but now quite hypertensive. - clonidine as needed. - amlodipine 5 mg daily added. Adjust as needed. Noncompliance The pt says he has poor living conditions. - case management assistance appreciated. - PT eval. Anemia S/t above conditions. - follow CBC. Heel wound Seems chronic. - wound care nurse consult. Prophylaxis: PPI/SCDs/restart eliquis.
[2018-02-08] MEDS: hydrALAZINE 25 MG Tablet PO SCH ×3 (11:58→18:08)
--- NOTE | 2018-02-08 14:25 | XR ---
EXAM DATE: 02/08/2018 1:39 PM EDT AGE/SEX: 37 years / Male INDICATIONS: Pneumonia. CLINICAL DATA: This is the patient's initial encounter. Patient reports that signs and symptoms have been present for 2 days and indicates a pain score of Nonresponsive. MEDICAL/SURGICAL HISTORY: Diabetes mellitus type II. None. COMPARISON: [facility] [place]. . FINDINGS: Right upper lobe airspace disease is still present. Left lung remains clear. There is been interval placement of a right jugular dialysis catheter which is in good position. Ther e is no evidence of pneumothorax. Heart and mediastinal structures are stable. CONCLUSION: 1. Asst. Right upper lobe airspace disease without significant improvement. 2. New right internal jugular dialysis catheter. 3. No evidence of pneumothorax. Electronically signed by: Russel Urena MD 02/08/2018 2:24 PM EDT
[2018-02-08] MEDS: Heparin 10,000 UNITS/10 ML Vial (for IV use) OTHER PRN (16:04)
[2018-02-08] MEDS ORDERED: Vancomycin Consult Pharmacy 1 EACH OTHER SCH (19:00)
[2018-02-08] MEDS: Aztreonam Inj 500 MG in Sodium Chlor 0.9% Inj 100 ML IV.SIG SCH (20:24)
[2018-02-08] MEDS: Insulin Detemir Inj 1,000 UNIT/10 ML Vial SQ SCH (21:30)
[2018-02-08] MEDS ORDERED: Vancomycin Inj 1,600 MG in Sodium Chlor 0.9% Inj 500 ML IV.SIG ONE (23:00)
[2018-02-09] MEDS: Insulin NovoLIN Regular Correctional Sugar Inj SQ SCH ×6 (00:03→15:08)
[2018-02-09] MEDS: Chlorhexidine Gluconate 2% 1 Pack (2 Cloths) TOPICAL SCH (04:10)
[2018-02-09 04:25] LABS: Hematocrit 27.1 % (39.0-51.0); Mean Corpuscular HGB Conc 33.1 % (32.0-36.0); Mean Corpuscular Hemoglobin 28.4 pg (27.0-34.0); Mean Corpuscular Volume 85.9 fL (80.0-100.0); Mean Platelet Volume 6.9 fL (7.0-11.0); Platelet Count 224 th/mm3 (150-450); Red Blood Count 3.15 mil/mm3 (4.50-5.90); Red Cell Distribution Width 14.8 % (11.6-17.2); White Blood Count 5.9 th/mm3 (4.0-11.0)
[2018-02-09 04:47] LABS: Calcium 7.5 mg/dL (8.5-10.1); Carbon Dioxide 30.9 meq/L (21.0-32.0); Potassium 3.8 meq/L (3.5-5.1)
[2018-02-09] MEDS: Pantoprazole Inj 40 MG Vial IV.PUSH SCH (08:02)
[2018-02-09] MEDS: Aztreonam Inj 500 MG in Sodium Chlor 0.9% Inj 100 ML IV.SIG SCH ×2 (08:02→20:30)
[2018-02-09] MEDS: hydrALAZINE 25 MG Tablet PO SCH ×3 (08:02→17:37)
[2018-02-09] MEDS: Sertraline 100 MG Tablet PO SCH (08:02)
[2018-02-09] MEDS: amLODIPine 5 MG Tablet PO SCH (08:03)
[2018-02-09] MEDS: Topiramate 25 MG Tablet PO SCH (08:03)
[2018-02-09] MEDS: Senna/Docusate Sodium 8.6/50 MG Tablet PO SCH ×2 (08:04→20:31)
[2018-02-09] MEDS: Loratadine 10 MG Tablet PO SCH (08:05)
--- NOTE | 2018-02-09 10:25 | P.PNWCN ---
Wound Care Nurse Consult Description: Consult for Wound Management of Left heel per Dr Lyle Communicated with: Dr Lyle Patient Recommendation: Cleanse left lateral heel wound with NS Q3D and PRN for saturation or dislodgement. Apply Cavilon skin barrier film to periwound and allow to dry. Place Optifoam AG over wound bed and secure with dry cover and date dressing. Keep heel elevated off mattress surface at all times. Additional information: Patient seen on for wound evaluation of left heel. Sock removed to reveal a previously unroofed bulla, partially open in the center/posteriorly measuring 0.9cm x 0.7cm x <0.1cm of red non granulating tissue. Wound bed is moist, not actively draining, and has no odor present. Periwound is noted with wrinkled dry skin with blanching erythema. Wound was cleansed with NS and gauze. Dressing of Optifoam AG was placed over wound bed and secured with a bordered gauze dressing dated today that may remain in place for 3 days unless soiled or dislodged. Patient states he has had this wound for about a month and states that it is from pressure and patient also states that he is a diabetic. It is recommended that he keep his heel elevated off the mattress surface at all times while in bed. Wound/Pressure Injury - Wound Left Heel Wound Staging: Stage II Wound Assessment: Ongoing Wound Type: Pressure Injury (stage 2 pressure injury is an open unroofed blister ) Requested from Provider a Wound Care Consult: Yes (Dr Lyle) Length: 0.9 (cm) Width: 0.7 (cm) Depth: 0.1 (cm) Wound Bed Appearance: Red Wound Bed Appearance: moist Surrounding Tissue Appearance: Erythema (blanching) Drainage Amount: None Dressing Status: Open to Air (was open to air, dressing "APPLIED" by pocketbook maker) Cleansing Solution: Saline Primary Dressing: Silver Dressing (Optifoam AG) Cover Dressing: Adhesive Bordered Gauze Wound Dressing Change Date: 02/09/18 (next dressing change 02/12/18)
--- NOTE | 2018-02-09 11:05 | P.PNIM ---
Subjective Interval history: The patient was resting comfortably in bed. He states that his mucus production was better. He had a bowel movement this morning. Discussed with nursing. Physical Exam Vital signs: Vital Signs 02/08/18 11:36 02/08/18 12:27 02/08/18 14:03 Temperature 97.7 F Pulse Rate 78 Respiratory Rate 18 18 Blood Pressure 143/85 H Pulse Oximetry 94 L 94 L 02/08/18 18:06 02/08/18 18:39 02/08/18 20:00 Temperature 98.4 F 98.1 F Pulse Rate 88 79 Respiratory Rate 18 Blood Pressure 175/99 H 164/97 H Pulse Oximetry 95 95 02/09/18 00:00 02/09/18 08:00 02/09/18 08:32 Temperature 98.1 F 98.1 F Pulse Rate 74 83 Respiratory Rate 18 Blood Pressure 159/93 H 140/80 Pulse Oximetry 96 97 Intake & Output 02/08/18 02/09/18 02/09/18 18:59 06:59 18:59 Intake Total 960 / 960 100 / 100 Output Total 1000 / 1000 4200 / 4200 Balance -1000 / -1000 -3240 / -3240 100 / 100 Weight 81.6 kg Intake: IV 600 / 600 100 / 100 Azactam Inj 500 MG In NS Inj 100 / 100 100 / 100 100 ML @ 200 mls/hr IV.SIG Q12H [facility] Rx#:[id number] Vancomycin Inj 1,600 MG In NS 500 / 500 Inj 500 ML @ 258 mls/hr IV.SIG ONCE ONE Rx#:[id number] Oral 360 / 360 Output: Urine 4200 / 4200 Hemodialysis Amount 1000 / 1000 Other: Date of Last Bowel Movement 02/07/18 02/07/18 Narrative: gen: young male who appears older than stated age, lying in bed, no acute distress. heent: nc. at. perrl. mmm. neck: no jvd. trachea midline. chest: unlabored. equal chest rise. cv: rrr. sinus. abd: soft, nontender, nondistended. no guarding. extr: +thrill for AVF. distal pulses 2+. Chronic ulcer on left heel. neuro: no focal deficits. Results - Labs CBC & Chem 7: 02/09/18 04:01 02/09/18 04:01 Laboratory Results - last 24 hr 02/08/18 02/08/18 02/08/18 11:12 18:04 19:55 WBC RBC Hgb Hct MCV MCH MCHC RDW Plt Count MPV Sodium Potassium Chloride Carbon Dioxide Anion Gap BUN Creatinine Estimated GFR POC Glucose 147 H 302 H 267 H Random Glucose Calcium 02/08/18 02/09/18 02/09/18 23:58 04:01 04:01 WBC 5.9 RBC 3.15 L Hgb 9.0 L Hct 27.1 L MCV 85.9 MCH 28.4 MCHC 33.1 RDW 14.8 Plt Count 224 MPV 6.9 L Sodium 143 Potassium 3.8 Chloride 106 Carbon Dioxide 30.9 Anion Gap 6 BUN 24 H Creatinine 2.65 H Estimated GFR 28 L POC Glucose 146 H Random Glucose 131 H Calcium 7.5 L 02/09/18 02/09/18 02/09/18 04:08 07:04 09:48 WBC RBC Hgb Hct MCV MCH MCHC RDW Plt Count MPV Sodium Potassium Chloride Carbon Dioxide Anion Gap BUN Creatinine Estimated GFR POC Glucose 120 H 107 308 H Random Glucose Calcium Microbiology 02/05/18 10:13 Blood - Peripheral Aerobic Blood Culture - Preliminary No growth in 4 days 02/05/18 10:13 Blood - Peripheral Anaerobic Blood Culture - Preliminary No growth in 4 days 02/05/18 10:19 Blood - Peripheral Aerobic Blood Culture - Preliminary No growth in 4 days 02/05/18 10:19 Blood - Peripheral Anaerobic Blood Culture - Preliminary No growth in 4 days - Imaging Impressions Chest X-Ray 02/08/18 00:00 CONCLUSION: 1. Asst. Right upper lobe airspace disease without significant improvement. 2. New right internal jugular dialysis catheter. 3. No evidence of pneumothorax. Assessment and Plan - Plan Severe metabolic acidosis/ DM Secondary to diabetic ketoacidosis/renal failure/diarrhea. S/p insulin drip. - Levemir 5 units HS as blood sugar is very labile. - SSI, med scale. - Monitor and replete electrolytes as needed. - consider endocrinology consult. HCAP CXR 02/09 with persistent right infiltrate. - vancomycin and aztreonam started 02/08. - oxygen and nebs as needed. - incentive spirometry. LARS/CKD Nephrology consult appreciated. - HD per nephrology. - avoid nephrotoxins. Hypokalemia Likely s/t decreased PO intake. - managed with dialysis. - follow BMP. History of DVT Last dose of Eliquis per patient was on 02/03. - resumed Eliquis. HTN Had hypotension earlier, but now quite hypertensive. - clonidine as needed. - amlodipine 5 mg daily added. Adjust as needed. Noncompliance The pt says he has poor living conditions. - case management assistance appreciated. - PT eval. Anemia S/t above conditions. - follow CBC. Heel wound Seems chronic. Wound care nurse consult appreciated. - dressing changes per wound care. Prophylaxis: PPI/SCDs/restart eliquis. Discharge Planning: On IV antibiotics for HCAP, needs dialysis set-up and case management assistance with living situation
[2018-02-09] MEDS: Insulin NovoLOG Aspart Correctional Sugar Inj SQ SCH ×2 (16:27→20:30)
--- NOTE | 2018-02-09 17:25 | P.PNNP ---
Subjective Interval history: Patient seen in AM, not in distress, eating better. Physical Exam Vital signs: Vital Signs 02/08/18 18:06 02/08/18 18:39 02/08/18 20:00 Temperature 98.4 F 98.1 F Pulse Rate 88 79 Respiratory Rate 18 Blood Pressure 175/99 H 164/97 H Pulse Oximetry 95 95 02/09/18 00:00 02/09/18 08:00 02/09/18 08:32 Temperature 98.1 F 98.1 F Pulse Rate 74 83 Respiratory Rate Blood Pressure 159/93 H 140/80 Pulse Oximetry 96 97 02/09/18 12:00 Temperature 97.8 F Pulse Rate 84 Respiratory Rate 18 Blood Pressure 136/82 Pulse Oximetry 96 Intake & Output 02/08/18 02/09/18 02/09/18 18:59 06:59 18:59 Intake Total 960 / 960 100 / 100 Output Total 1000 / 1000 4200 / 4200 Balance -1000 / -1000 -3240 / -3240 100 / 100 Weight 81.6 kg Intake: IV 600 / 600 100 / 100 Azactam Inj 500 MG In NS Inj 100 / 100 100 / 100 100 ML @ 200 mls/hr IV.SIG Q12H [facility] Rx#:[id number] Vancomycin Inj 1,600 MG In NS 500 / 500 Inj 500 ML @ 258 mls/hr IV.SIG ONCE ONE Rx#:[id number] Oral 360 / 360 Output: Urine 4200 / 4200 Hemodialysis Amount 1000 / 1000 Other: Date of Last Bowel Movement 02/07/18 02/07/18 Narrative: gen: young male who appears older than stated age, lying in bed, no acute distress. heent: nc. at. perrl. mmm. neck: no jvd. trachea midline. chest: unlabored. equal chest rise. cv: rrr. sinus. abd: soft, nontender, nondistended. no guarding. extr: +thrill for AVF. distal pulses 2+. Chronic ulcer on left heel. neuro: no focal deficits. Assessment and Plan - Assessment (1) Chronic kidney disease, stage 4, severely decreased GFR Code(s): N18.4 - Chronic kidney disease, stage 4 (severe) Status: Acute Plan: The patient has advanced renal disease and he is approaching end-stage. He has a A-V fistula with positive thrill and bruit but not ready for use Vas cath placed and hemodialysis started on 02/05 Continue Epogen with hemodialysis Will monitor labs and urinary output Hemodialysis planned for today will remove fluid as tolerated Hypokalemia will adjust K bath with dialysis. Outpatient hemodialysis will need to be arranged, information has been faxed to [facility] per case management. HD will be in AM. Will need PermCath, on Eliquis, will consider next week. (2) DKA, type 1 Code(s): E10.10 - Type 1 diabetes mellitus with ketoacidosis without coma Status: Acute Qualifiers: Diabetes mellitus complication detail: without coma Qualified Code(s): E10.10 - Type 1 diabetes mellitus with ketoacidosis without coma Plan: blood sugars continues to be labile (3) Pneumonia Code(s): J18.9 - Pneumonia, unspecified organism Status: Acute Qualifiers: Pneumonia type: due to unspecified organism Laterality: right Lung location: upper lobe of lung Qualified Code(s): J18.1 - Lobar pneumonia, unspecified organism (4) Hypertension Code(s): I10 - Essential (primary) hypertension Status: Acute Plan: Hypertensive with SBP 150's to 160's On amlodipine will add hydralazine.
[2018-02-09] MEDS: Insulin Detemir Inj 1,000 UNIT/10 ML Vial SQ SCH (20:29)
[2018-02-10] MEDS: Chlorhexidine Gluconate 2% 1 Pack (2 Cloths) TOPICAL SCH (05:47)
[2018-02-10 06:27] LABS: Hematocrit 28.7 % (39.0-51.0); Hemoglobin 9.7 gm/dL (13.0-17.0); Mean Corpuscular HGB Conc 33.9 % (32.0-36.0); Mean Corpuscular Hemoglobin 29.3 pg (27.0-34.0); Mean Corpuscular Volume 86.5 fL (80.0-100.0); Mean Platelet Volume 6.8 fL (7.0-11.0); Platelet Count 223 th/mm3 (150-450); Red Blood Count 3.32 mil/mm3 (4.50-5.90); Red Cell Distribution Width 14.7 % (11.6-17.2); White Blood Count 5.4 th/mm3 (4.0-11.0)
[2018-02-10 06:50] LABS: Calcium 7.7 mg/dL (8.5-10.1); Carbon Dioxide 25.4 meq/L (21.0-32.0); Potassium 4.2 meq/L (3.5-5.1)
[2018-02-10 06:52] LABS: Vancomycin,Random 1.1 Comment
[2018-02-10] MEDS: Sertraline 100 MG Tablet PO SCH (08:24)
[2018-02-10] MEDS: Senna/Docusate Sodium 8.6/50 MG Tablet PO SCH ×2 (08:24→20:44)
[2018-02-10] MEDS: hydrALAZINE 25 MG Tablet PO SCH ×4 (08:24→17:34)
[2018-02-10] MEDS: amLODIPine 5 MG Tablet PO SCH (08:24)
[2018-02-10] MEDS: Topiramate 25 MG Tablet PO SCH (08:25)
[2018-02-10] MEDS: Loratadine 10 MG Tablet PO SCH (08:25)
[2018-02-10] MEDS: Pantoprazole Inj 40 MG Vial IV.PUSH SCH (08:25)
[2018-02-10] MEDS: Insulin NovoLOG Aspart Correctional Sugar Inj SQ SCH ×4 (08:33→20:46)
[2018-02-10] MEDS: Aztreonam Inj 500 MG in Sodium Chlor 0.9% Inj 100 ML IV.SIG SCH ×2 (09:53→20:45)
--- NOTE | 2018-02-10 11:56 | P.PNNP ---
Subjective Interval history: Patient seen during hemodialysis no complaint Physical Exam Vital signs: Vital Signs 02/09/18 12:00 02/09/18 15:34 02/09/18 16:00 Temperature 97.8 F 98.3 F Pulse Rate 84 87 Respiratory Rate 18 18 18 Blood Pressure 136/82 109/71 Pulse Oximetry 96 98 02/09/18 17:35 02/09/18 20:00 02/10/18 00:00 Temperature 98.2 F 98.4 F 98.2 F Pulse Rate 87 81 83 Respiratory Rate 18 18 Blood Pressure 125/78 169/100 H 167/99 H Pulse Oximetry 99 97 98 02/10/18 04:00 02/10/18 06:00 02/10/18 08:34 Temperature 98.3 F 98 F Pulse Rate 78 73 Respiratory Rate 18 16 Blood Pressure 173/101 H 136/84 184/101 H Pulse Oximetry 98 95 Intake & Output 02/09/18 02/10/18 02/10/18 18:59 06:59 18:59 Intake Total 580 / 580 1123 / 1123 Output Total 1700 / 1700 Balance 580 / 580 -577 / -577 Weight 68.039 kg Intake: IV 100 / 100 100 / 100 Azactam Inj 500 MG In NS Inj 100 / 100 100 / 100 100 ML @ 200 mls/hr IV.SIG Q12H [facility] Rx#:[id number] Vancomycin Inj 1,600 MG In NS Inj 500 ML @ 258 mls/hr IV.SIG ONCE ONE Rx#:[id number] Oral 480 / 480 1023 / 1023 Output: Urine 1700 / 1700 Other: # Voids 1 Date of Last Bowel Movement 02/07/18 02/09/18 # Bowel Movements 1 - Constitutional no acute distress - Routine HEENT Exam Head: Present: normocephalic Eye: Present: EOMI - Routine Respiratory Exam Present: CTA bilaterally - Routine Cardiovascular Exam Present: RRR - Routine Abdominal Exam Present: soft, normoactive bowel sounds - Routine Extremities Exam Present: full ROM Assessment and Plan - Assessment (1) End stage renal disease on dialysis Code(s): N18.6 - End stage renal disease; Z99.2 - Dependence on renal dialysis Status: Acute - Plan Patient is seen during hemodialysis tolerating it well ultrafiltration of 2 L Placement as outpatient Etiology of kidney failure is diabetes Dr. iGfford to follow on Monday
[2018-02-10] MEDS: Heparin 10,000 UNITS/10 ML Vial (for IV use) OTHER PRN (11:58)
[2018-02-10] MEDS ORDERED: Vancomycin Inj 1,500 MG in Sodium Chlor 0.9% Inj 500 ML IV.SIG ONE (13:00)
--- NOTE | 2018-02-10 15:47 | P.PNIM ---
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 He is nonoliguric and makes adequate urine. On discharge his BUN was 50 creatinine 3.7. Patient tells me that he developed diarrhea a day after discharge with dehydration secondary to nausea vomiting and inability to keep anything down. He got more short of breath and was brought to the ER today where he was noted to be in severe metabolic acidosis with a pH of 6.95 and anion gap of 33 and extremely high glucose. He also was noted to have worsening renal function based on his BUN/creatinine. He was diagnosed to be in DKA as well as worsening renal failure. He was given 2 L normal saline bolus and started on DKA protocol. I was contacted by ER physician and accepted patient for admission to the ICU. I advised immediate nephrology consult and evaluated patient in ER. Patient did receive 8 units of regular insulin IV. I ordered additional 10 units regular insulin IV and a second amp of bicarb IV push. Patient was initiated on DKA protocol with insulin drip and IV fluids. I ordered additional 2 L normal saline bolus Dr. Gifford evaluated patient and recommended initiating urgent dialysis after Vas-Cath placement. Patient was extremely tachypneic second to [place] respirations due to metabolic acidosis. IR placed vascath and patient was admitted to IM. TRANSFERRED OUT OF ICU AFTER IMPROVEMENT TRANSFERRED TO [facility] SEEN BY [employer] 7-18 The patient said he was a little nauseous. He said he is unable to take care of himself at home because of his living situation. He would be amenable to going to a rehab type discharge. Discussed with nursing. 7-19 The patient was wondering if he needed antibiotics for his left heel ulcer. He also wanted to know if he needed antibiotics for pneumonia. He said when his blood sugar was low this morning he felt like he was drowning. Discussed with nursing. HAS PNA TREATED WITH AZTREONAM AND VANCO 7-20 The patient was resting comfortably in bed. He states that his mucus production was better. He had a bowel movement this morning. Discussed with nursing. 02-10 SEEN AFTER HD TELLS ME HE SEES DR CARUSO AT [facility] [place] [facility] WILL NEED PLACEMENT HAS RIGHT UE AVF WITH [employer] BUT NOT MATURE YET Physical Exam Vital signs: Vital Signs 02/09/18 16:00 02/09/18 17:35 02/09/18 20:00 Temperature 98.3 F 98.2 F 98.4 F Pulse Rate 87 87 81 Respiratory Rate 18 18 18 Blood Pressure 109/71 125/78 169/100 H Pulse Oximetry 98 99 97 02/10/18 00:00 02/10/18 04:00 02/10/18 06:00 Temperature 98.2 F 98.3 F Pulse Rate 83 78 Respiratory Rate 18 18 Blood Pressure 167/99 H 173/101 H 136/84 Pulse Oximetry 98 98 02/10/18 08:34 02/10/18 12:00 Temperature 98 F 98.3 F Pulse Rate 73 103 H Respiratory Rate 16 20 Blood Pressure 184/101 H 107/58 L Pulse Oximetry 95 97 Intake & Output 02/09/18 02/10/18 02/10/18 18:59 06:59 18:59 Intake Total 580 / 580 1123 / 1123 531 / 531 Output Total 1700 / 1700 3300 / 3300 Balance 580 / 580 -577 / -577 -2769 / -2769 Weight 68.039 kg Intake: IV 100 / 100 100 / 100 531 / 531 Azactam Inj 500 MG In NS Inj 100 / 100 100 / 100 100 ML @ 200 mls/hr IV.SIG Q12H [facility] Rx#:[id number] Vancomycin Inj 1,500 MG In NS 531 / 531 Inj 500 ML @ 250 mls/hr IV.SIG ONCE ONE Rx#:[id number] Oral 480 / 480 1023 / 1023 Output: Urine 1700 / 1700 1300 / 1300 Hemodialysis Amount 1999 Other: # Voids 1 Date of Last Bowel Movement 02/07/18 02/09/18 # Bowel Movements 1 Narrative: gen: young male who appears older than stated age, lying in bed, no acute distress. heent: nc. at. perrl. mmm. neck: no jvd. trachea midline. RIGHT NECK HD CATH chest: unlabored. equal chest rise. cv: rrr. sinus. abd: soft, nontender, nondistended. no guarding. extr: +thrill for AVF. distal pulses 2+. Chronic ulcer on left heel. neuro: no focal deficits. Results - Labs CBC & Chem 7: 02/10/18 05:54 02/10/18 05:54 Laboratory Results - last 24 hr 02/09/18 02/09/18 02/09/18 15:30 16:03 18:28 WBC RBC Hgb Hct MCV MCH MCHC RDW Plt Count MPV Sodium Potassium Chloride Carbon Dioxide Anion Gap BUN Creatinine Estimated GFR POC Glucose 75 88 336 H Random Glucose Calcium Random Vancomycin 02/09/18 02/10/18 02/10/18 20:20 00:17 04:33 WBC RBC Hgb Hct MCV MCH MCHC RDW Plt Count MPV Sodium Potassium Chloride Carbon Dioxide Anion Gap BUN Creatinine Estimated GFR POC Glucose 444 H 219 H 153 H Random Glucose Calcium Random Vancomycin 02/10/18 02/10/18 02/10/18 05:54 05:54 08:27 WBC 5.4 RBC 3.32 L Hgb 9.7 L Hct 28.7 L MCV 86.5 MCH 29.3 MCHC 33.9 RDW 14.7 Plt Count 223 MPV 6.8 L Sodium 142 Potassium 4.2 Chloride 107 Carbon Dioxide 25.4 Anion Gap 10 BUN 33 H Creatinine 3.28 H Estimated GFR 22 L POC Glucose 338 H Random Glucose 215 H Calcium 7.7 L Random Vancomycin 1.1 02/10/18 02/10/18 02/10/18 11:09 12:42 15:34 WBC RBC Hgb Hct MCV MCH MCHC RDW Plt Count MPV Sodium Potassium Chloride Carbon Dioxide Anion Gap BUN Creatinine Estimated GFR POC Glucose 271 H 329 H 263 H Random Glucose Calcium Random Vancomycin Microbiology 02/05/18 10:13 Blood - Peripheral Aerobic Blood Culture - Final No growth in 5 days 02/05/18 10:13 Blood - Peripheral Anaerobic Blood Culture - Final No growth in 5 days 02/05/18 10:19 Blood - Peripheral Aerobic Blood Culture - Final No growth in 5 days 02/05/18 10:19 Blood - Peripheral Anaerobic Blood Culture - Final No growth in 5 days Assessment and Plan - Plan Severe metabolic acidosis/ DM Secondary to diabetic ketoacidosis/renal failure/diarrhea. S/p insulin drip. - Levemir 5 units HS as blood sugar is very labile. - SSI, med scale. - Monitor and replete electrolytes as needed. - consider endocrinology consult. HCAP CXR 02/09 with persistent right infiltrate. - vancomycin and aztreonam started 02/08. - oxygen and nebs as needed. - incentive spirometry. LARS/CKD Nephrology consult appreciated. - HD per nephrology. - avoid nephrotoxins. Hypokalemia Likely s/t decreased PO intake. - managed with dialysis. - follow BMP. History of DVT Last dose of Eliquis per patient was on 02/03. - resumed Eliquis. HTN Had hypotension earlier, but now quite hypertensive. - clonidine as needed. - amlodipine 5 mg daily added. Adjust as needed. MALIGNANT MEDICAL NONCOMPLIANCE The pt says he has poor living conditions. - case management assistance appreciated. - PT eval. Anemia S/t above conditions. - follow CBC. Heel wound Seems chronic. Wound care nurse consult appreciated. - dressing changes per wound care. Prophylaxis: PPI/SCDs/restart eliquis. Code Status: FULL CODE Discussed Condition With: RN AND PT AND CM Discharge Planning: WILL NEED SNF VS SAFE DC
[2018-02-10] MEDS: guaiFENesin 600 MG ER Tablet PO SCH (20:45)
[2018-02-10] MEDS: Insulin Detemir Inj 1,000 UNIT/10 ML Vial SQ SCH (20:46)
[2018-02-10 21:25] LABS: Hepatitits B Surface Antigen Nonreactive (Nonreactive)
[2018-02-10 21:49] LABS: Hepatitis A IgM Antibody Nonreactive (Nonreactive)
[2018-02-11 06:58] LABS: Baso % (Auto) 0.5 % (0.0-2.0); Eos # (Auto) 0.1 th/mm3 (0.0-0.4); Eos % (Auto) 1.5 % (0.0-4.0); Hematocrit 28.1 % (39.0-51.0); Hemoglobin 9.5 gm/dL (13.0-17.0); Lymph # (Auto) 2.2 th/mm3 (1.0-4.8); Lymph % (Auto) 32.2 % (9.0-44.0); Mean Corpuscular HGB Conc 33.8 % (32.0-36.0); Mean Corpuscular Hemoglobin 29.3 pg (27.0-34.0); Mean Corpuscular Volume 86.6 fL (80.0-100.0); Mean Platelet Volume 6.9 fL (7.0-11.0); Mono # (Auto) 0.4 th/mm3 (0.0-0.9); Mono % (Auto) 6.5 % (0.0-8.0); Neut # (Auto) 4.1 th/mm3 (1.8-7.7); Neut % (Auto) 59.3 % (16.0-70.0); Platelet Count 243 th/mm3 (150-450); Red Blood Count 3.25 mil/mm3 (4.50-5.90); Red Cell Distribution Width 14.3 % (11.6-17.2); White Blood Count 6.9 th/mm3 (4.0-11.0)
[2018-02-11 07:16] LABS: Alanine Aminotransferase 42 U/L (12-78); Albumin 1.9 g/dL (3.4-5.0); Anion Gap 6 meq/L (5-15); Aspartate Aminotransferase 15 U/L (15-37); Blood Urea Nitrogen 24 mg/dL (7-18); Calcium 7.5 mg/dL (8.5-10.1); Carbon Dioxide 29.9 meq/L (21.0-32.0); Chloride 108 meq/L (98-107); Cholesterol 218 mg/dL (120-200); Glomerular Filtration Rate 24 mL/min (>89); Glucose,Random 121 mg/dL (74-106); Phosphorus 2.9 mg/dL (2.5-4.9); Potassium 3.3 meq/L (3.5-5.1); Sodium 144 meq/L (136-145); Triglycerides 152 mg/dL (42-150)
[2018-02-11 07:41] LABS: Alkaline Phosphatase 139 U/L (45-117); Chol/HDL Ratio 3.63 Ratio; Free T4 (Free Thyroxine) 0.84 ng/dL (0.76-1.46); LDL Cholesterol,Calculated 128 mg/dL (0-99); Total Protein 5.1 g/dL (6.4-8.2); Vancomycin,Random 18.5 Comment
[2018-02-11] MEDS: Aztreonam Inj 500 MG in Sodium Chlor 0.9% Inj 100 ML IV.SIG SCH ×2 (08:17→22:48)
[2018-02-11] MEDS: Senna/Docusate Sodium 8.6/50 MG Tablet PO SCH ×2 (08:18→22:49)
[2018-02-11] MEDS: Sertraline 100 MG Tablet PO SCH (08:18)
[2018-02-11] MEDS: amLODIPine 5 MG Tablet PO SCH (08:18)
[2018-02-11] MEDS: Pantoprazole Inj 40 MG Vial IV.PUSH SCH (08:18)
[2018-02-11] MEDS: Topiramate 25 MG Tablet PO SCH (08:19)
[2018-02-11] MEDS: hydrALAZINE 25 MG Tablet PO SCH ×3 (08:19→17:07)
[2018-02-11] MEDS: Loratadine 10 MG Tablet PO SCH (08:19)
[2018-02-11] MEDS: guaiFENesin 600 MG ER Tablet PO SCH ×2 (08:19→21:00)
[2018-02-11] MEDS: Insulin NovoLOG Aspart Correctional Sugar Inj SQ SCH ×4 (08:28→22:44)
[2018-02-11 11:48] LABS: Hemoglobin A1c 8.5 % (4.3-6.0)
--- NOTE | 2018-02-11 12:26 | P.PNIM ---
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 He is nonoliguric and makes adequate urine. On discharge his BUN was 50 creatinine 3.7. Patient tells me that he developed diarrhea a day after discharge with dehydration secondary to nausea vomiting and inability to keep anything down. He got more short of breath and was brought to the ER today where he was noted to be in severe metabolic acidosis with a pH of 6.95 and anion gap of 33 and extremely high glucose. He also was noted to have worsening renal function based on his BUN/creatinine. He was diagnosed to be in DKA as well as worsening renal failure. He was given 2 L normal saline bolus and started on DKA protocol. I was contacted by ER physician and accepted patient for admission to the ICU. I advised immediate nephrology consult and evaluated patient in ER. Patient did receive 8 units of regular insulin IV. I ordered additional 10 units regular insulin IV and a second amp of bicarb IV push. Patient was initiated on DKA protocol with insulin drip and IV fluids. I ordered additional 2 L normal saline bolus Dr. Gifford evaluated patient and recommended initiating urgent dialysis after Vas-Cath placement. Patient was extremely tachypneic second to Kussmaul respirations due to metabolic acidosis. IR placed vascath and patient was admitted to IM. TRANSFERRED OUT OF ICU AFTER IMPROVEMENT TRANSFERRED TO [facility] SEEN BY MY COLLEAGUE 7-18 The patient said he was a little nauseous. He said he is unable to take care of himself at home because of his living situation. He would be amenable to going to a rehab type discharge. Discussed with nursing. 7-19 The patient was wondering if he needed antibiotics for his left heel ulcer. He also wanted to know if he needed antibiotics for pneumonia. He said when his blood sugar was low this morning he felt like he was drowning. Discussed with nursing. HAS PNA TREATED WITH AZTREONAM AND VANCO 7-20 The patient was resting comfortably in bed. He states that his mucus production was better. He had a bowel movement this morning. Discussed with nursing. 02-10 SEEN AFTER HD TELLS ME HE SEES DR CARUSO AT [facility] IN [place] [facility] WILL NEED PLACEMENT HAS RIGHT UE AVF WITH GOOD BRUIT BUT NOT MATURE YET 02-11 NO NEW COMPLAINTS WILL NEED PLACEMENT DUE TO MALIGNANT MEDICAL NONCOMPLIANCE Physical Exam Vital signs: Vital Signs 02/10/18 16:00 02/10/18 19:42 02/10/18 20:00 Temperature 98.5 F 98.3 F Pulse Rate 90 87 Respiratory Rate 16 18 Blood Pressure 131/74 138/78 Pulse Oximetry 97 97 97 02/11/18 00:00 02/11/18 04:00 02/11/18 07:11 Temperature 97.8 F 97.9 F Pulse Rate 73 77 Respiratory Rate 18 18 18 Blood Pressure 147/84 H 160/95 H Pulse Oximetry 95 97 02/11/18 08:00 Temperature 97.8 F Pulse Rate 77 Respiratory Rate 16 Blood Pressure 175/94 H Pulse Oximetry 97 Intake & Output 02/10/18 02/11/18 02/11/18 18:59 06:59 18:59 Intake Total 1251 / 1251 1165 / 1165 100 / 100 Output Total 3300 / 3300 1000 / 1000 Balance -2049 / -2049 165 / 165 100 / 100 Weight 68.03 kg Intake: IV 531 / 531 100 / 100 100 / 100 Azactam Inj 500 MG In NS Inj 100 / 100 100 / 100 100 ML @ 200 mls/hr IV.SIG Q12H JORDAN Rx#:[id number] Vancomycin Inj 1,500 MG In NS 531 / 531 Inj 500 ML @ 250 mls/hr IV.SIG ONCE ONE Rx#:[id number] Oral 720 / 720 1065 / 1065 Output: Urine 1300 / 1300 1000 / 1000 Hemodialysis Amount 1999 Other: # Voids 700 Date of Last Bowel Movement 02/10/18 02/09/18 # Bowel Movements 0 Narrative: gen: young male who appears older than stated age, lying in bed, no acute distress. heent: nc. at. perrl. mmm. neck: no jvd. trachea midline. RIGHT NECK HD CATH chest: unlabored. equal chest rise. cv: rrr. sinus. abd: soft, nontender, nondistended. no guarding. extr: +thrill for AVF. distal pulses 2+. Chronic ulcer on left heel. neuro: no focal deficits. Results - Labs CBC & Chem 7: 02/11/18 06:16 02/11/18 06:16 Laboratory Results - last 24 hr 02/10/18 02/10/18 02/10/18 12:42 15:34 19:51 WBC RBC Hgb Hct MCV MCH MCHC RDW Plt Count MPV Neut % (Auto) Lymph % (Auto) [place] % (Auto) Eos % (Auto) Baso % (Auto) Neut # (Auto) Lymph # (Auto) [place] # (Auto) Eos # (Auto) Baso # (Auto) WBC Differential Differential Comment Sodium Potassium Chloride Carbon Dioxide Anion Gap BUN Creatinine Estimated GFR POC Glucose 329 H 263 H Random Glucose Calcium Phosphorus Magnesium Total Bilirubin AST ALT Alkaline Phosphatase Total Protein Albumin Triglycerides Cholesterol LDL Cholesterol, Calc HDL Cholesterol Cholesterol/HDL Ratio TSH Free T4 Random Vancomycin Hepatitis A IgM Ab Nonreactive Hep Bs Antigen Nonreactive Hep B Core IgM Ab Nonreactive Hep C IgG Ab Nonreactive 02/10/18 02/10/18 02/11/18 20:35 23:31 04:57 WBC RBC Hgb Hct MCV MCH MCHC RDW Plt Count MPV Neut % (Auto) Lymph % (Auto) [place] % (Auto) Eos % (Auto) Baso % (Auto) Neut # (Auto) Lymph # (Auto) [place] # (Auto) Eos # (Auto) Baso # (Auto) WBC Differential Differential Comment Sodium Potassium Chloride Carbon Dioxide Anion Gap BUN Creatinine Estimated GFR POC Glucose 343 H 275 H 209 H Random Glucose Calcium Phosphorus Magnesium Total Bilirubin AST ALT Alkaline Phosphatase Total Protein Albumin Triglycerides Cholesterol LDL Cholesterol, Calc HDL Cholesterol Cholesterol/HDL Ratio TSH Free T4 Random Vancomycin Hepatitis A IgM Ab Hep Bs Antigen Hep B Core IgM Ab Hep C IgG Ab 02/11/18 02/11/18 02/11/18 06:16 06:16 08:27 WBC 6.9 RBC 3.25 L Hgb 9.5 L Hct 28.1 L MCV 86.6 MCH 29.3 MCHC 33.8 RDW 14.3 Plt Count 243 MPV 6.9 L Neut % (Auto) 59.3 Lymph % (Auto) 32.2 [place] % (Auto) 6.5 Eos % (Auto) 1.5 Baso % (Auto) 0.5 Neut # (Auto) 4.1 Lymph # (Auto) 2.2 [place] # (Auto) 0.4 Eos # (Auto) 0.1 Baso # (Auto) 0.0 WBC Differential . Differential Comment Auto diff final Sodium 144 Potassium 3.3 L D Chloride 108 H Carbon Dioxide 29.9 Anion Gap 6 BUN 24 H Creatinine 2.95 H Estimated GFR 24 L POC Glucose 194 H Random Glucose 121 H Calcium 7.5 L Phosphorus 2.9 Magnesium 2.0 Total Bilirubin 0.2 AST 15 ALT 42 Alkaline Phosphatase 139 H Total Protein 5.1 L D Albumin 1.9 L Triglycerides 152 H Cholesterol 218 H LDL Cholesterol, Calc 128 H HDL Cholesterol 60.0 Cholesterol/HDL Ratio 3.63 TSH 2.010 Free T4 0.84 Random Vancomycin 18.5 Hepatitis A IgM Ab Hep Bs Antigen Hep B Core IgM Ab Hep C IgG Ab 02/11/18 12:08 WBC RBC Hgb Hct MCV MCH MCHC RDW Plt Count MPV Neut % (Auto) Lymph % (Auto) [place] % (Auto) Eos % (Auto) Baso % (Auto) Neut # (Auto) Lymph # (Auto) [place] # (Auto) Eos # (Auto) Baso # (Auto) WBC Differential Differential Comment Sodium Potassium Chloride Carbon Dioxide Anion Gap BUN Creatinine Estimated GFR POC Glucose 395 H Random Glucose Calcium Phosphorus Magnesium Total Bilirubin AST ALT Alkaline Phosphatase Total Protein Albumin Triglycerides Cholesterol LDL Cholesterol, Calc HDL Cholesterol Cholesterol/HDL Ratio TSH Free T4 Random Vancomycin Hepatitis A IgM Ab Hep Bs Antigen Hep B Core IgM Ab Hep C IgG Ab Microbiology 02/05/18 10:13 Blood - Peripheral Aerobic Blood Culture - Final No growth in 5 days 02/05/18 10:13 Blood - Peripheral Anaerobic Blood Culture - Final No growth in 5 days 02/05/18 10:19 Blood - Peripheral Aerobic Blood Culture - Final No growth in 5 days 02/05/18 10:19 Blood - Peripheral Anaerobic Blood Culture - Final No growth in 5 days - Procedures RIGHT SIDE HD CATHETER PLACEMENT HD Assessment and Plan - Plan Severe metabolic acidosis/ DM Secondary to diabetic ketoacidosis/renal failure/diarrhea. S/p insulin drip. - Levemir 5 units HS as blood sugar is very labile. - SSI, med scale. - Monitor and replete electrolytes as needed. - consider endocrinology consult. HCAP CXR 02/09 with persistent right infiltrate. - vancomycin and aztreonam started 02/08. - oxygen and nebs as needed. - incentive spirometry. LARS/CKD Nephrology consult appreciated. - HD per nephrology. - avoid nephrotoxins. Hypokalemia Likely s/t decreased PO intake. - managed with dialysis. - follow BMP. History of DVT Last dose of Eliquis per patient was on 02/03. - resumed Eliquis. HTN Had hypotension earlier, but now quite hypertensive. - clonidine as needed. - amlodipine 5 mg daily added. Adjust as needed. MALIGNANT MEDICAL NONCOMPLIANCE The pt says he has poor living conditions. - case management assistance appreciated. - PT eval. Anemia S/t above conditions. - follow CBC. Heel wound Seems chronic. Wound care nurse consult appreciated. - dressing changes per wound care. Prophylaxis: PPI/SCDs/restart eliquis. Code Status: FULL CODE Discussed Condition With: RN AND PT AND CM Discharge Planning: WILL NEED SNF VS SAFE DC
[2018-02-11] MEDS ORDERED: Potassium Chloride 25 MEQ Effervescent Tablet PO ONE (15:44)
--- NOTE | 2018-02-11 15:46 | P.PNNP ---
Subjective Interval history: Feels okay Physical Exam Vital signs: Vital Signs 02/10/18 16:00 02/10/18 19:42 02/10/18 20:00 Temperature 98.5 F 98.3 F Pulse Rate 90 87 Respiratory Rate 16 18 Blood Pressure 131/74 138/78 Pulse Oximetry 97 97 97 02/11/18 00:00 02/11/18 04:00 02/11/18 07:11 Temperature 97.8 F 97.9 F Pulse Rate 73 77 Respiratory Rate 18 18 18 Blood Pressure 147/84 H 160/95 H Pulse Oximetry 95 97 02/11/18 08:00 02/11/18 12:00 02/11/18 15:23 Temperature 97.8 F 97.7 F Pulse Rate 77 85 Respiratory Rate 16 16 18 Blood Pressure 175/94 H 149/86 H Pulse Oximetry 97 97 Intake & Output 02/10/18 02/11/18 02/11/18 18:59 06:59 18:59 Intake Total 1251 / 1251 1165 / 1165 100 / 100 Output Total 3300 / 3300 1000 / 1000 Balance -2049 / -2049 165 / 165 100 / 100 Weight 68.03 kg Intake: IV 531 / 531 100 / 100 100 / 100 Azactam Inj 500 MG In NS Inj 100 / 100 100 / 100 100 ML @ 200 mls/hr IV.SIG Q12H JORDAN Rx#:[id number] Vancomycin Inj 1,500 MG In NS 531 / 531 Inj 500 ML @ 250 mls/hr IV.SIG ONCE ONE Rx#:[id number] Oral 720 / 720 1065 / 1065 Output: Urine 1300 / 1300 1000 / 1000 Hemodialysis Amount 1999 Other: # Voids 700 Date of Last Bowel Movement 02/10/18 02/09/18 # Bowel Movements 0 - Constitutional no acute distress - Routine HEENT Exam Head: Present: normocephalic - Routine Neck Exam Present: supple - Routine Respiratory Exam Present: CTA bilaterally - Routine Cardiovascular Exam Present: RRR - Routine Abdominal Exam Present: soft, normoactive bowel sounds - Routine Extremities Exam Present: full ROM Assessment and Plan - Assessment (1) End stage renal disease on dialysis Code(s): N18.6 - End stage renal disease; Z99.2 - Dependence on renal dialysis Status: Acute - Plan Patient had hemodialysis yesterday Placement as outpatient Potassium replacement ordered Etiology of kidney failure is diabetes Dr. Gifford to follow on Monday
[2018-02-11] MEDS: Insulin Detemir Inj 1,000 UNIT/10 ML Vial SQ SCH (22:43)
[2018-02-12 05:49] LABS: Hematocrit 28.4 % (39.0-51.0); Hemoglobin 9.6 gm/dL (13.0-17.0); Mean Corpuscular Hemoglobin 29.4 pg (27.0-34.0); Mean Corpuscular Volume 86.5 fL (80.0-100.0); Mean Platelet Volume 6.8 fL (7.0-11.0); Platelet Count 242 th/mm3 (150-450); Red Blood Count 3.28 mil/mm3 (4.50-5.90); Red Cell Distribution Width 14.5 % (11.6-17.2); White Blood Count 6.8 th/mm3 (4.0-11.0)
[2018-02-12 06:10] LABS: Alanine Aminotransferase 37 U/L (12-78); Anion Gap 8 meq/L (5-15); Aspartate Aminotransferase 16 U/L (15-37); Blood Urea Nitrogen 34 mg/dL (7-18); Calcium 7.5 mg/dL (8.5-10.1); Carbon Dioxide 24.6 meq/L (21.0-32.0); Chloride 109 meq/L (98-107); Glomerular Filtration Rate 19 mL/min (>89); Glucose,Random 143 mg/dL (74-106); Phosphorus 3.4 mg/dL (2.5-4.9); Potassium 3.3 meq/L (3.5-5.1); Sodium 142 meq/L (136-145)
[2018-02-12 06:12] LABS: Alkaline Phosphatase 137 U/L (45-117); Total Protein 4.9 g/dL (6.4-8.2)
[2018-02-12] MEDS: Aztreonam Inj 500 MG in Sodium Chlor 0.9% Inj 100 ML IV.SIG SCH ×2 (08:00→21:16)
[2018-02-12] MEDS: amLODIPine 5 MG Tablet PO SCH (10:09)
[2018-02-12] MEDS: Topiramate 25 MG Tablet PO SCH (10:10)
[2018-02-12] MEDS: Loratadine 10 MG Tablet PO SCH (10:10)
[2018-02-12] MEDS: guaiFENesin 600 MG ER Tablet PO SCH ×2 (10:10→21:16)
[2018-02-12] MEDS: Senna/Docusate Sodium 8.6/50 MG Tablet PO SCH ×2 (10:10→21:18)
[2018-02-12] MEDS: Sertraline 100 MG Tablet PO SCH (10:10)
[2018-02-12] MEDS: hydrALAZINE 25 MG Tablet PO SCH ×3 (10:10→18:00)
[2018-02-12] MEDS: Insulin Detemir Inj 1,000 UNIT/10 ML Vial SQ SCH (12:29)
[2018-02-12] MEDS: Insulin NovoLOG Aspart Correctional Sugar Inj SQ SCH ×3 (12:29→18:06)
[2018-02-12] MEDS: Pantoprazole Inj 40 MG Vial IV.PUSH SCH (12:30)
--- NOTE | 2018-02-12 13:08 | P.PNIM ---
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 He is nonoliguric and makes adequate urine. On discharge his BUN was 50 creatinine 3.7. Patient tells me that he developed diarrhea a day after discharge with dehydration secondary to nausea vomiting and inability to keep anything down. He got more short of breath and was brought to the ER today where he was noted to be in severe metabolic acidosis with a pH of 6.95 and anion gap of 33 and extremely high glucose. He also was noted to have worsening renal function based on his BUN/creatinine. He was diagnosed to be in DKA as well as worsening renal failure. He was given 2 L normal saline bolus and started on DKA protocol. I was contacted by ER physician and accepted patient for admission to the ICU. I advised immediate nephrology consult and evaluated patient in ER. Patient did receive 8 units of regular insulin IV. I ordered additional 10 units regular insulin IV and a second amp of bicarb IV push. Patient was initiated on DKA protocol with insulin drip and IV fluids. I ordered additional 2 L normal saline bolus Dr. Gifford evaluated patient and recommended initiating urgent dialysis after Vas-Cath placement. Patient was extremely tachypneic second to Kussmaul respirations due to metabolic acidosis. IR placed vascath and patient was admitted to IM. TRANSFERRED OUT OF ICU AFTER IMPROVEMENT TRANSFERRED TO [facility] SEEN BY MY COLLE[employer] 7-18 The patient said he was a little nauseous. He said he is unable to take care of himself at home because of his living situation. He would be amenable to going to a rehab type discharge. Discussed with nursing. 7-19 The patient was wondering if he needed antibiotics for his left heel ulcer. He also wanted to know if he needed antibiotics for pneumonia. He said when his blood sugar was low this morning he felt like he was drowning. Discussed with nursing. HAS PNA TREATED WITH AZTREONAM AND VANCO 7-20 The patient was resting comfortably in bed. He states that his mucus production was better. He had a bowel movement this morning. Discussed with nursing. 02-10 SEEN AFTER HD TELLS ME HE SEES DR CARUSO AT [facility] IN [place] [facility] WILL NEED PLACEMENT HAS RIGHT UE AVF WITH GOOD BRUIT BUT NOT MATURE YET 02-11 NO NEW COMPLAINTS WILL NEED PLACEMENT DUE TO MALIGNANT MEDICAL NONCOMPLIANCE 02-12 NO NEW ISSUES TODAY DW RN AND PT WILL NEED SNF OR PLACEMENT Physical Exam Vital signs: Vital Signs 02/11/18 15:23 02/11/18 16:00 02/11/18 18:02 Temperature 98.3 F Pulse Rate 83 Respiratory Rate 18 16 18 Blood Pressure 134/74 Pulse Oximetry 98 02/11/18 20:00 02/12/18 00:00 02/12/18 04:00 Temperature 97.9 F 98.1 F 98.1 F Pulse Rate 85 88 85 Respiratory Rate 17 17 17 Blood Pressure 115/75 159/97 H 152/89 H Pulse Oximetry 96 98 97 02/12/18 08:00 Temperature 97.9 F Pulse Rate 80 Respiratory Rate 15 Blood Pressure 163/92 H Pulse Oximetry 98 Intake & Output 02/11/18 02/12/18 02/12/18 18:59 06:59 18:59 Intake Total 700 / 700 100 / 100 Output Total 500 / 500 Balance 200 / 200 100 / 100 Weight 68.3 kg Intake: IV 100 / 100 100 / 100 Azactam Inj 500 MG In NS Inj 100 / 100 100 / 100 100 ML @ 200 mls/hr IV.SIG Q12H JORDAN Rx#:[id number] Oral 600 / 600 Output: Urine 500 / 500 Other: # Voids 2 4 Date of Last Bowel Movement 02/09/18 02/11/18 # Bowel Movements 2 Narrative: gen: young male who appears older than stated age, lying in bed, no acute distress. heent: nc. at. perrl. mmm. neck: no jvd. trachea midline. RIGHT NECK HD CATH chest: unlabored. equal chest rise. cv: rrr. sinus. abd: soft, nontender, nondistended. no guarding. extr: +thrill for AVF. distal pulses 2+. Chronic ulcer on left heel. neuro: no focal deficits. Results - Labs CBC & Chem 7: 02/12/18 05:26 02/12/18 05:26 Laboratory Results - last 24 hr 02/11/18 02/11/18 02/11/18 06:16 17:06 22:33 WBC RBC Hgb Hct MCV MCH MCHC RDW Plt Count MPV Sodium Potassium Chloride Carbon Dioxide Anion Gap BUN Creatinine Estimated GFR POC Glucose 289 H 526 H* Random Glucose Hemoglobin A1c 8.5 H Calcium Phosphorus Magnesium Total Bilirubin AST ALT Alkaline Phosphatase Total Protein Albumin 02/12/18 02/12/18 02/12/18 02:28 05:15 05:26 WBC RBC Hgb Hct MCV MCH MCHC RDW Plt Count MPV Sodium 142 Potassium 3.3 L Chloride 109 H Carbon Dioxide 24.6 Anion Gap 8 BUN 34 H Creatinine 3.61 H Estimated GFR 19 L POC Glucose 244 H 133 H Random Glucose 143 H Hemoglobin A1c Calcium 7.5 L Phosphorus 3.4 Magnesium 2.0 Total Bilirubin 0.2 AST 16 ALT 37 Alkaline Phosphatase 137 H Total Protein 4.9 L Albumin 2.0 L 02/12/18 02/12/18 02/12/18 05:26 10:09 12:25 WBC 6.8 RBC 3.28 L Hgb 9.6 L Hct 28.4 L MCV 86.5 MCH 29.4 MCHC 34.0 RDW 14.5 Plt Count 242 MPV 6.8 L Sodium Potassium Chloride Carbon Dioxide Anion Gap BUN Creatinine Estimated GFR POC Glucose 102 251 H Random Glucose Hemoglobin A1c Calcium Phosphorus Magnesium Total Bilirubin AST ALT Alkaline Phosphatase Total Protein Albumin - Procedures RIGHT SIDE HD CATHETER PLACEMENT HD Assessment and Plan - Plan Severe metabolic acidosis/ DM Secondary to diabetic ketoacidosis/renal failure/diarrhea. S/p insulin drip. - Levemir 5 units HS as blood sugar is very labile. - SSI, med scale. - Monitor and replete electrolytes as needed. - consider endocrinology consult. HCAP CXR 02/09 with persistent right infiltrate. - vancomycin and aztreonam started 02/08. - oxygen and nebs as needed. - incentive spirometry. LARS/CKD Nephrology consult appreciated. - HD per nephrology. - avoid nephrotoxins. Hypokalemia Likely s/t decreased PO intake. - managed with dialysis. - follow BMP. WILL HOPEFULLY BE REPLACE IN HD History of DVT Last dose of Eliquis per patient was on 02/03. - resumed Eliquis. HTN Had hypotension earlier, but now quite hypertensive. - clonidine as needed. - amlodipine 5 mg daily added. Adjust as needed. MALIGNANT MEDICAL NONCOMPLIANCE The pt says he has poor living conditions. - case management assistance appreciated. - PT eval. Anemia S/t above conditions. - follow CBC. Heel wound Seems chronic. Wound care nurse consult appreciated. - dressing changes per wound care. Prophylaxis: PPI/SCDs/restart eliquis. Code Status: FULL CODE Discussed Condition With: CM AND RN AND PT WILL NEED HD SET UP OUTPATIENT Discharge Planning: WILL NEED SNF VS SAFE DC WILL NEED HD SET UP
[2018-02-12] MEDS ORDERED: Insulin Detemir Inj 1,000 UNIT/10 ML Vial SQ SCH (13:09)
--- NOTE | 2018-02-12 19:36 | P.PNNP ---
Subjective Interval history: Patient sen in the afternoon, no SOB feeling better, no nausea. Physical Exam Vital signs: Vital Signs 02/11/18 20:00 02/12/18 00:00 02/12/18 04:00 Temperature 97.9 F 98.1 F 98.1 F Pulse Rate 85 88 85 Respiratory Rate 17 17 17 Blood Pressure 115/75 159/97 H 152/89 H Pulse Oximetry 96 98 97 02/12/18 08:00 02/12/18 12:00 02/12/18 16:00 Temperature 97.9 F 97.9 F 98.1 F Pulse Rate 80 78 86 Respiratory Rate 15 16 16 Blood Pressure 163/92 H 152/84 H 140/78 Pulse Oximetry 98 98 95 Intake & Output 02/12/18 02/12/18 02/13/18 06:59 18:59 06:59 Intake Total 100 / 100 600 / 600 Output Total Balance 100 / 100 599 / 599 Weight 68.3 kg Intake: IV 100 / 100 Azactam Inj 500 MG In NS Inj 100 / 100 100 ML @ 200 mls/hr IV.SIG Q12H JORDAN Rx#:[id number] Oral 600 / 600 Output: Stool Other: # Voids 4 3 Date of Last Bowel Movement 02/11/18 # Bowel Movements 2 Narrative: gen: Patient is alert,lying in bed, no acute distress. heent: perrl. mmm. neck: no jvd. trachea midline. RIGHT NECK HD CATH chest: unlabored. equal chest rise. cv: rrr. sinus. abd: soft, nontender, nondistended. no guarding. extr: +thrill for AVF. distal pulses 2+. Chronic ulcer on left heel. neuro: no focal deficits. Assessment and Plan - Assessment (1) End stage renal disease on dialysis Code(s): N18.6 - End stage renal disease; Z99.2 - Dependence on renal dialysis Status: Acute - Plan Patient has End stage renal disease, on HD now TTS. AVF is not ready yet. Out Patient HD is being arranged. Also need placement. BP is stable, HD will be in AM. Will need PermCath, on Eliquis.
[2018-02-13 05:54] LABS: Hematocrit 27.2 % (39.0-51.0); Hemoglobin 8.8 gm/dL (13.0-17.0); Mean Corpuscular HGB Conc 32.5 % (32.0-36.0); Mean Corpuscular Hemoglobin 28.6 pg (27.0-34.0); Mean Platelet Volume 6.8 fL (7.0-11.0); Platelet Count 226 th/mm3 (150-450); Red Blood Count 3.09 mil/mm3 (4.50-5.90); White Blood Count 7.4 th/mm3 (4.0-11.0)
[2018-02-13 06:26] LABS: Calcium 7.1 mg/dL (8.5-10.1); Carbon Dioxide 20.1 meq/L (21.0-32.0); Potassium 3.6 meq/L (3.5-5.1); Vancomycin,Random 8.5 Comment
[2018-02-13 06:44] LABS: Total Protein 4.6 g/dL (6.4-8.2)
[2018-02-13] MEDS: hydrALAZINE 25 MG Tablet PO SCH ×3 (09:24→17:47)
[2018-02-13] MEDS: guaiFENesin 600 MG ER Tablet PO SCH ×2 (09:24→22:34)
[2018-02-13] MEDS: amLODIPine 5 MG Tablet PO SCH (09:24)
[2018-02-13] MEDS: Topiramate 25 MG Tablet PO SCH (09:24)
[2018-02-13] MEDS: Sertraline 100 MG Tablet PO SCH (09:24)
[2018-02-13] MEDS: Senna/Docusate Sodium 8.6/50 MG Tablet PO SCH ×2 (09:24→22:34)
[2018-02-13] MEDS: Loratadine 10 MG Tablet PO SCH (09:24)
[2018-02-13] MEDS: Aztreonam Inj 500 MG in Sodium Chlor 0.9% Inj 100 ML IV.SIG SCH ×2 (09:25→22:33)
--- NOTE | 2018-02-13 10:14 | P.PNNP ---
Subjective Interval history: Patient seen during HD, alert, no SOB, eating well. Physical Exam Vital signs: Vital Signs 02/12/18 12:00 02/12/18 16:00 02/12/18 19:00 Temperature 97.9 F 98.1 F 97.9 F Pulse Rate 78 86 86 Respiratory Rate 16 16 18 Blood Pressure 152/84 H 140/78 138/84 Pulse Oximetry 98 95 97 02/12/18 20:00 02/13/18 04:00 Temperature 97.9 F 97.6 F Pulse Rate 87 Respiratory Rate 18 Blood Pressure 137/77 144/83 H Pulse Oximetry 98 98 Intake & Output 02/12/18 02/13/18 02/13/18 18:59 06:59 18:59 Intake Total 700 / 700 1540 / 1540 Output Total 2425 / 2425 Balance 699 / 699 -885 / -885 Weight 68 kg Intake: IV 100 / 100 100 / 100 Azactam Inj 500 MG In NS Inj 100 / 100 100 / 100 100 ML @ 200 mls/hr IV.SIG Q12H JORDAN Rx#:[id number] Oral 600 / 600 1440 / 1440 Output: Urine 2425 / 2425 Stool Other: # Voids 3 Date of Last Bowel Movement 02/11/18 # Bowel Movements 0 Narrative: gen: Patient is alert,lying in bed, no acute distress. heent: perrl. mmm. neck: no jvd. trachea midline. RIGHT NECK HD CATH chest: unlabored. equal chest rise. cv: rrr. sinus. abd: soft, nontender, nondistended. no guarding. extr: +thrill for AVF. distal pulses 2+. Chronic ulcer on left heel. neuro: no focal deficits. Assessment and Plan - Assessment (1) End stage renal disease on dialysis Code(s): N18.6 - End stage renal disease; Z99.2 - Dependence on renal dialysis Status: Acute - Plan Patient has End stage renal disease, on HD now TTS. AVF is not ready yet. Out Patient HD is being arranged. Also need placement. BP is stable, HD today, remove fluid as tolerated. Will need PermCath, on Eliquis, will need to hold it for 48 hrs. AVF need more time for maturation. funeral service manager notes seen for D/C planning and placement.
--- NOTE | 2018-02-13 10:23 | P.PNIM ---
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 He is nonoliguric and makes adequate urine. On discharge his BUN was 50 creatinine 3.7. Patient tells me that he developed diarrhea a day after discharge with dehydration secondary to nausea vomiting and inability to keep anything down. He got more short of breath and was brought to the ER today where he was noted to be in severe metabolic acidosis with a pH of 6.95 and anion gap of 33 and extremely high glucose. He also was noted to have worsening renal function based on his BUN/creatinine. He was diagnosed to be in DKA as well as worsening renal failure. He was given 2 L normal saline bolus and started on DKA protocol. I was contacted by ER physician and accepted patient for admission to the ICU. I advised immediate nephrology consult and evaluated patient in ER. Patient did receive 8 units of regular insulin IV. I ordered additional 10 units regular insulin IV and a second amp of bicarb IV push. Patient was initiated on DKA protocol with insulin drip and IV fluids. I ordered additional 2 L normal saline bolus Dr. Gifford evaluated patient and recommended initiating urgent dialysis after Vas-Cath placement. Patient was extremely tachypneic second to Kussmaul respirations due to metabolic acidosis. IR placed vascath and patient was admitted to IM. TRANSFERRED OUT OF ICU AFTER IMPROVEMENT TRANSFERRED TO [facility] SEEN BY MY COLLEAGUE 7-18 The patient said he was a little nauseous. He said he is unable to take care of himself at home because of his living situation. He would be amenable to going to a rehab type discharge. Discussed with nursing. 7-19 The patient was wondering if he needed antibiotics for his left heel ulcer. He also wanted to know if he needed antibiotics for pneumonia. He said when his blood sugar was low this morning he felt like he was drowning. Discussed with nursing. HAS PNA TREATED WITH AZTREONAM AND VANCO 7-20 The patient was resting comfortably in bed. He states that his mucus production was better. He had a bowel movement this morning. Discussed with nursing. 02-10 SEEN AFTER HD TELLS ME HE SEES DR CARUSO AT [facility] IN [place] [facility] WILL NEED PLACEMENT HAS RIGHT UE AVF WITH GOOD BRUIT BUT NOT MATURE YET 02-11 NO NEW COMPLAINTS WILL NEED PLACEMENT DUE TO MALIGNANT MEDICAL NONCOMPLIANCE 02-12 NO NEW ISSUES TODAY DW RN AND PT WILL NEED SNF OR PLACEMENT 02-13 NEEDS OUTPT HD SET UP AND NEEDS SNF AT [place] NO NEW COMPLAINTS TO GO FOR HD TODAY DW RN AND PT AND CM Physical Exam Vital signs: Vital Signs 02/12/18 12:00 02/12/18 16:00 02/12/18 19:00 Temperature 97.9 F 98.1 F 97.9 F Pulse Rate 78 86 86 Respiratory Rate 16 16 18 Blood Pressure 152/84 H 140/78 138/84 Pulse Oximetry 98 95 97 02/12/18 20:00 02/13/18 04:00 Temperature 97.9 F 97.6 F Pulse Rate 87 Respiratory Rate 18 18 Blood Pressure 137/77 144/83 H Pulse Oximetry 98 98 Intake & Output 02/12/18 02/13/18 02/13/18 18:59 06:59 18:59 Intake Total 700 / 700 1540 / 1540 Output Total 2425 / 2425 Balance 699 / 699 -885 / -885 Weight 68 kg Intake: IV 100 / 100 100 / 100 Azactam Inj 500 MG In NS Inj 100 / 100 100 / 100 100 ML @ 200 mls/hr IV.SIG Q12H JORDAN Rx#:[id number] Oral 600 / 600 1440 / 1440 Output: Urine 2425 / 2425 Stool Other: # Voids 3 Date of Last Bowel Movement 02/11/18 # Bowel Movements 0 Narrative: gen: Patient is alert,lying in bed, no acute distress. heent: perrl. mmm. neck: no jvd. trachea midline. RIGHT NECK HD CATH chest: unlabored. equal chest rise. cv: rrr. sinus. abd: soft, nontender, nondistended. no guarding. extr: +thrill for AVF. distal pulses 2+. Chronic ulcer on left heel. neuro: no focal deficits. Results - Labs CBC & Chem 7: 02/13/18 05:06 02/13/18 05:06 Laboratory Results - last 24 hr 02/12/18 02/12/18 02/12/18 12:25 17:44 21:07 WBC RBC Hgb Hct MCV MCH MCHC RDW Plt Count MPV Sodium Potassium Chloride Carbon Dioxide Anion Gap BUN Creatinine Estimated GFR POC Glucose 251 H 432 H 300 H Random Glucose Calcium Prot Corrected Calcium Total Protein Random Vancomycin 02/13/18 02/13/18 02/13/18 03:27 03:45 04:20 WBC RBC Hgb Hct MCV MCH MCHC RDW Plt Count MPV Sodium Potassium Chloride Carbon Dioxide Anion Gap BUN Creatinine Estimated GFR POC Glucose 62 L 50 L 103 Random Glucose Calcium Prot Corrected Calcium Total Protein Random Vancomycin 02/13/18 02/13/18 02/13/18 05:06 05:06 06:21 WBC 7.4 RBC 3.09 L Hgb 8.8 L Hct 27.2 L MCV 88.0 MCH 28.6 MCHC 32.5 RDW 15.0 Plt Count 226 MPV 6.8 L Sodium 143 Potassium 3.6 Chloride 111 H Carbon Dioxide 20.1 L Anion Gap 12 BUN 38 H Creatinine 3.91 H Estimated GFR 18 L POC Glucose 199 H Random Glucose 165 H Calcium 7.1 L* Prot Corrected Calcium 8.5 Total Protein 4.6 L Random Vancomycin 8.5 - Procedures RIGHT SIDE HD CATHETER PLACEMENT HD Assessment and Plan - Plan Severe metabolic acidosis/ DM Secondary to diabetic ketoacidosis/renal failure/diarrhea. S/p insulin drip. - SSI, med scale. - Monitor and replete electrolytes as needed. - consider endocrinology consult. SWITCH TO 8UNITS IN AM AND 5 UNITS QHS OF LEVEMIR HCAP CXR 02/09 with persistent right infiltrate. - vancomycin and aztreonam started 02/08. - oxygen and nebs as needed. - incentive spirometry. LARS/CKD Nephrology consult appreciated. - HD per nephrology. - avoid nephrotoxins. Hypokalemia Likely s/t decreased PO intake. - managed with dialysis. - follow BMP. History of DVT Last dose of Eliquis per patient was on 02/03. - resumed Eliquis. HTN Had hypotension earlier, but now quite hypertensive. - clonidine as needed. - amlodipine 5 mg daily added. Adjust as needed. MALIGNANT MEDICAL NONCOMPLIANCE The pt says he has poor living conditions. - case management assistance appreciated. - PT eval. NEEDS SNF AT [place] Anemia S/t above conditions. - follow CBC. Heel wound Seems chronic. Wound care nurse consult appreciated. - dressing changes per wound care. NEEDS OUTPT HD SET UP LOCALLY Prophylaxis: PPI/SCDs/restart eliquis. Code Status: FULL CODE Discussed Condition With: RN AND PT AND CM Discharge Planning: WILL NEED SNF VS SAFE DC WILL NEED HD SET UP
[2018-02-13] MEDS ORDERED: Vancomycin Inj 1,500 MG in Sodium Chlor 0.9% Inj 500 ML IV.SIG ONE (11:00)
[2018-02-13] MEDS: Heparin 10,000 UNITS/10 ML Vial (for IV use) IV.FLUSH PRN (13:03)
[2018-02-13] MEDS: Insulin NovoLOG Aspart Correctional Sugar Inj SQ SCH ×4 (14:57→22:35)
[2018-02-13] MEDS: Pantoprazole Inj 40 MG Vial IV.PUSH SCH (15:04)
[2018-02-13] MEDS: Insulin Detemir Inj 1,000 UNIT/10 ML Vial SQ SCH (22:33)
[2018-02-14] MEDS: Insulin NovoLOG Aspart Correctional Sugar Inj SQ SCH ×4 (08:24→21:42)
[2018-02-14] MEDS: Loratadine 10 MG Tablet PO SCH (08:25)
[2018-02-14] MEDS: guaiFENesin 600 MG ER Tablet PO SCH ×2 (08:25→21:41)
[2018-02-14] MEDS: Senna/Docusate Sodium 8.6/50 MG Tablet PO SCH ×2 (08:25→21:43)
[2018-02-14] MEDS: Sertraline 100 MG Tablet PO SCH (08:25)
[2018-02-14] MEDS: amLODIPine 5 MG Tablet PO SCH (08:25)
[2018-02-14] MEDS: Insulin Detemir Inj 1,000 UNIT/10 ML Vial SQ SCH ×2 (08:26→21:42)
[2018-02-14] MEDS: hydrALAZINE 25 MG Tablet PO SCH ×3 (08:26→21:30)
[2018-02-14] MEDS: Pantoprazole Inj 40 MG Vial IV.PUSH SCH (08:27)
[2018-02-14] MEDS: Topiramate 25 MG Tablet PO SCH (08:28)
[2018-02-14] MEDS: Aztreonam Inj 500 MG in Sodium Chlor 0.9% Inj 100 ML IV.SIG SCH ×2 (08:29→21:42)
--- NOTE | 2018-02-14 10:17 | P.PNIM ---
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 He is nonoliguric and makes adequate urine. On discharge his BUN was 50 creatinine 3.7. Patient tells me that he developed diarrhea a day after discharge with dehydration secondary to nausea vomiting and inability to keep anything down. He got more short of breath and was brought to the ER today where he was noted to be in severe metabolic acidosis with a pH of 6.95 and anion gap of 33 and extremely high glucose. He also was noted to have worsening renal function based on his BUN/creatinine. He was diagnosed to be in DKA as well as worsening renal failure. He was given 2 L normal saline bolus and started on DKA protocol. I was contacted by ER physician and accepted patient for admission to the ICU. I advised immediate nephrology consult and evaluated patient in ER. Patient did receive 8 units of regular insulin IV. I ordered additional 10 units regular insulin IV and a second amp of bicarb IV push. Patient was initiated on DKA protocol with insulin drip and IV fluids. I ordered additional 2 L normal saline bolus Dr. Gifford evaluated patient and recommended initiating urgent dialysis after Vas-Cath placement. Patient was extremely tachypneic second to Kussmaul respirations due to metabolic acidosis. IR placed vascath and patient was admitted to IM. TRANSFERRED OUT OF ICU AFTER IMPROVEMENT TRANSFERRED TO [facility] SEEN BY MY COLLEAGUE 7-18 The patient said he was a little nauseous. He said he is unable to take care of himself at home because of his living situation. He would be amenable to going to a rehab type discharge. Discussed with nursing. 7-19 The patient was wondering if he needed antibiotics for his left heel ulcer. He also wanted to know if he needed antibiotics for pneumonia. He said when his blood sugar was low this morning he felt like he was drowning. Discussed with nursing. HAS PNA TREATED WITH AZTREONAM AND VANCO 7-20 The patient was resting comfortably in bed. He states that his mucus production was better. He had a bowel movement this morning. Discussed with nursing. 02-10 SEEN AFTER HD TELLS ME HE SEES DR CARUSO AT [facility] IN [place] [facility] WILL NEED PLACEMENT HAS RIGHT UE AVF WITH GOOD BRUIT BUT NOT MATURE YET 02-11 NO NEW COMPLAINTS WILL NEED PLACEMENT DUE TO MALIGNANT MEDICAL NONCOMPLIANCE 02-12 NO NEW ISSUES TODAY DW RN AND PT WILL NEED SNF OR PLACEMENT 02-13 NEEDS OUTPT HD SET UP AND NEEDS SNF AT [place] NO NEW COMPLAINTS TO GO FOR HD TODAY DW RN AND PT AND CM 02-14 PATIENT STATES HE IS TO HAVE HD CATHETER REPLACED THIS ADMISSION- NEEDS PERMACATH PER NEPHROLOGY WANTS A LARGER DIET INCREASE TO 2500CALORIES ADA DIET AM LABS Physical Exam Vital signs: Vital Signs 02/13/18 16:00 02/13/18 20:00 02/14/18 00:00 Temperature 98.4 F 98.4 F 98 F Pulse Rate 100 H 88 94 H Respiratory Rate 18 18 20 Blood Pressure 128/74 167/87 H 156/90 H Pulse Oximetry 97 97 98 02/14/18 04:00 02/14/18 08:00 Temperature 97.8 F 97.9 F Pulse Rate 82 77 Respiratory Rate 18 18 Blood Pressure 127/71 147/91 H Pulse Oximetry 98 99 Intake & Output 02/13/18 02/14/18 02/14/18 18:59 06:59 18:59 Intake Total 1060 / 1060 100 / 100 100 / 100 Output Total 1999 Balance -940 / -940 100 / 100 100 / 100 Weight 68 kg Intake: IV 100 / 100 100 / 100 100 / 100 Azactam Inj 500 MG In NS Inj 100 / 100 100 / 100 100 / 100 100 ML @ 200 mls/hr IV.SIG Q12H JORDAN Rx#:[id number] Oral 960 / 960 Output: Hemodialysis Amount 1999 Other: # Voids 1 2 Date of Last Bowel Movement 02/13/18 Narrative: gen: Patient is alert,lying in bed, no acute distress. heent: perrl. mmm. neck: no jvd. trachea midline. RIGHT NECK HD CATH chest: unlabored. equal chest rise. cv: rrr. sinus. abd: soft, nontender, nondistended. no guarding. extr: +thrill for AVF. distal pulses 2+. Chronic ulcer on left heel. neuro: no focal deficits. Results - Labs CBC & Chem 7: 02/13/18 05:06 02/13/18 05:06 Laboratory Results - last 24 hr 02/13/18 02/13/18 02/13/18 11:47 14:54 18:04 POC Glucose 359 H 437 H 264 H Random Vancomycin 02/13/18 02/13/18 02/14/18 22:25 23:35 04:55 POC Glucose 502 H* 429 H 65 L Random Vancomycin 02/14/18 02/14/18 02/14/18 06:24 08:23 09:09 POC Glucose 172 H 89 Random Vancomycin 29.0 - Imaging Chest X-Ray 02/05/18 09:00 CONCLUSION: Slight right upper lobe infiltrate not present previously. Catheter Placement 02/05/18 11:25 CONCLUSION: 1. Uncomplicated line placement as above. Chest X-Ray 02/08/18 00:00 CONCLUSION: 1. Asst. Right upper lobe airspace disease without significant improvement. 2. New right internal jugular dialysis catheter. 3. No evidence of pneumothorax. - Procedures RIGHT SIDE HD CATHETER PLACEMENT HD Assessment and Plan - Plan Severe metabolic acidosis/ DM Secondary to diabetic ketoacidosis/renal failure/diarrhea. S/p insulin drip. - SSI, med scale. - Monitor and replete electrolytes as needed. - consider endocrinology consult. SWITCH TO 8UNITS IN AM AND 5 UNITS QHS OF LEVEMIR INCREASE DIET TO 2500 ADA AT PT REQUEST HCAP CXR 02/09 with persistent right infiltrate. - vancomycin and aztreonam started 02/08. - oxygen and nebs as needed. - incentive spirometry. LARS/CKD Nephrology consult appreciated. - HD per nephrology. - avoid nephrotoxins. Hypokalemia Likely s/t decreased PO intake. - managed with dialysis. - follow BMP. History of DVT Last dose of Eliquis per patient was on 02/03. - resumed Eliquis. HTN Had hypotension earlier, but now quite hypertensive. - clonidine as needed. - amlodipine 5 mg daily added. Adjust as needed. MALIGNANT MEDICAL NONCOMPLIANCE The pt says he has poor living conditions. - case management assistance appreciated. - PT eval. NEEDS SNF AT [place] Anemia S/t above conditions. - follow CBC. Heel wound Seems chronic. Wound care nurse consult appreciated. - dressing changes per wound care. NEEDS OUTPT HD SET UP LOCALLY Prophylaxis: PPI/SCDs/restart eliquis. Code Status: FULL CODE Discussed Condition With: DELFIN RN AND PT Discharge Planning: WILL NEED SNF VS SAFE DC WILL NEED HD SET UP
--- NOTE | 2018-02-14 19:04 | P.PNNP ---
Subjective Interval history: Patient is alert, no SOB, eating better. Physical Exam Vital signs: Vital Signs 02/13/18 20:00 02/14/18 00:00 02/14/18 04:00 Temperature 98.4 F 98 F 97.8 F Pulse Rate 88 94 H 82 Respiratory Rate 18 20 18 Blood Pressure 167/87 H 156/90 H 127/71 Pulse Oximetry 97 98 98 02/14/18 08:00 02/14/18 12:00 02/14/18 16:00 Temperature 97.9 F 97.4 F L 98.3 F Pulse Rate 77 87 87 Respiratory Rate 18 18 18 Blood Pressure 147/91 H 129/76 138/82 Pulse Oximetry 99 100 98 Intake & Output 02/14/18 02/14/18 02/15/18 06:59 18:59 06:59 Intake Total 100 / 100 1000 / 1000 Output Total 1999 Balance 100 / 100 -1000 / -1000 Weight 68 kg Intake: IV 100 / 100 100 / 100 Azactam Inj 500 MG In NS Inj 100 / 100 100 / 100 100 ML @ 200 mls/hr IV.SIG Q12H JORDAN Rx#:[id number] Oral 900 / 900 Output: Urine 1999 Other: # Voids 2 Date of Last Bowel Movement 02/13/18 Narrative: gen: Patient is alert,lying in bed, no acute distress. heent: perrl. mmm. neck: no jvd. trachea midline. RIGHT NECK HD CATH chest: unlabored. equal chest rise. cv: rrr. sinus. abd: soft, nontender, nondistended. no guarding. extr: +thrill for AVF. distal pulses 2+. Chronic ulcer on left heel. neuro: no focal deficits. Assessment and Plan - Assessment (1) End stage renal disease on dialysis Code(s): N18.6 - End stage renal disease; Z99.2 - Dependence on renal dialysis Status: Acute - Plan Patient has End stage renal disease, on HD now TTS. AVF is not ready yet. Out Patient HD is being arranged. Also need placement. BP is stable, HD to continue MWF. Will need PermCath, on Eliquis, will hold it for 48 hrs. AVF need more time for maturation. For placement and out patient HD arrangement.
[2018-02-14] MEDS: Heparin - SQ 10,000 UNITS/ML Vial SQ SCH (21:41)
[2018-02-15] MEDS: Insulin NovoLOG Aspart Correctional Sugar Inj SQ SCH ×4 (08:00→20:41)
[2018-02-15] MEDS: Insulin Detemir Inj 1,000 UNIT/10 ML Vial SQ SCH ×2 (08:39→20:50)
[2018-02-15] MEDS: hydrALAZINE 25 MG Tablet PO SCH ×3 (13:09→18:04)
[2018-02-15] MEDS: Senna/Docusate Sodium 8.6/50 MG Tablet PO SCH ×2 (13:10→20:50)
[2018-02-15] MEDS: Aztreonam Inj 500 MG in Sodium Chlor 0.9% Inj 100 ML IV.SIG SCH (14:47)
[2018-02-15] MEDS: Topiramate 25 MG Tablet PO SCH (14:48)
[2018-02-15] MEDS: guaiFENesin 600 MG ER Tablet PO SCH (14:48)
[2018-02-15] MEDS: Pantoprazole Inj 40 MG Vial IV.PUSH SCH (14:48)
[2018-02-15] MEDS: Sertraline 100 MG Tablet PO SCH (14:48)
[2018-02-15] MEDS: Loratadine 10 MG Tablet PO SCH (14:48)
[2018-02-15] MEDS: Heparin - SQ 10,000 UNITS/ML Vial SQ SCH ×2 (14:57→20:41)
[2018-02-15] MEDS ORDERED: Vancomycin Inj 1,250 MG in Sodium Chlor 0.9% Inj 250 ML IV.SIG ONE (15:00)
--- NOTE | 2018-02-15 15:03 | P.PN ---
Subjective Interval history: Follow-up visit for diabetes mellitus, HTN, DVT anticoagulated on Eliquis, chronic kidney disease now end-stage renal disease on hemodialysis. Patient is seen and examined sitting up in bed with nurse at bedside. Patient reports that he had soymilk this morning and has had several loose bowel movements after that as well as diffuse abdominal pain and tenderness. Nurse notes blood on patient's right sock and patient did report that he had blood in his stool as well however is unable to quantify amount. Patient reports that he did have an episode of bloody stool in the past but was an isolated incident. He denies any history of hemorrhoids or any GI bleeds in the past. He denies any nausea or vomiting, fevers, chills, shortness of breath, cough or chest pain. Patient also denies any dizziness or lightheadedness at this time. Physical Exam Vital signs: Vital Signs 02/14/18 16:00 02/14/18 20:00 02/15/18 00:00 Temperature 36.8 C 36.9 C 36.8 C Pulse Rate 87 86 97 H Respiratory Rate 18 17 16 Blood Pressure 138/82 148/88 H 131/73 Pulse Oximetry 98 97 98 02/15/18 04:00 02/15/18 08:00 Temperature 36.8 C 36.6 C Pulse Rate 84 94 H Respiratory Rate 16 16 Blood Pressure 131/73 152/95 H Pulse Oximetry 98 97 Intake & Output 02/14/18 02/15/18 02/15/18 18:59 06:59 18:59 Intake Total 1000 / 1000 450 / 450 Output Total 1999 300 / 300 1999 Balance -999 / -1000 150 / 150 -1999 Intake: IV 100 / 100 100 / 100 Azactam Inj 500 MG In NS Inj 100 / 100 100 / 100 100 ML @ 200 mls/hr IV.SIG Q12H JORDAN Rx#:[id number] Oral 900 / 900 350 / 350 Output: Urine 1999 300 / 300 Hemodialysis Amount 1999 Other: Date of Last Bowel Movement 02/13/18 02/14/18 02/14/18 Narrative: GENERAL: This is a well-nourished, well-developed male. SKIN: Warm and dry. Pale. HEENT: Normocephalic. Pupils equal round. Nose without bleeding. Airway patent. NECK: Trachea midline. CARDIOVASCULAR: Regular rate and rhythm without murmurs, gallops, or rubs. RESPIRATORY: Clear to auscultation. Breath sounds equal bilaterally. No wheezes , rales, or rhonchi. GASTROINTESTINAL: Abdomen soft, diffuse tenderness, + bowel sounds MUSCULOSKELETAL: Extremities without clubbing, cyanosis, or edema. NEUROLOGICAL: Awake and alert. Oriented to time, place, person. No focal neuro deficit. Moves all extremities. Normal speech. Results - Labs CBC & Chem 7: 02/15/18 15:25 02/13/18 05:06 Laboratory Results - last 24 hr 02/14/18 02/14/18 02/15/18 15:55 21:30 00:40 POC Glucose 135 H 329 H 133 H Random Vancomycin 02/15/18 02/15/18 02/15/18 04:14 05:06 08:17 POC Glucose 168 H 222 H Random Vancomycin 19.9 02/15/18 02/15/18 08:18 13:03 POC Glucose 207 H 89 Random Vancomycin - Procedures RIGHT SIDE HD CATHETER PLACEMENT HD Assessment and Plan - Plan Severe metabolic acidosis/ DM Secondary to diabetic ketoacidosis/renal failure/diarrhea. S/p insulin drip. -Accu-Cheks with insulin sliding scale. Blood sugars in the past 24 hours between 329 and 89 - Monitor and replete electrolytes as needed. -Continue Levemir 8 units in the a.m. and 5 units at bedtime diabetic diet at 2500-calorie HCAP CXR 02/09 with persistent right infiltrate. - vancomycin and aztreonam started 02/08. -On room air with no respiratory complaints. Repeat chest x-ray 02/15 with no acute cardiopulmonary disease. -Discontinue antibiotics, encourage, incentive spirometry. LARS/CKD Nephrology following, greatly appreciate assistance -Fistula in place however not yet mature. Vas-Cath in place, will need permacath placement until fistula matures for HD -Scheduled for HD treatments Monday, Monday, Monday -avoid nephrotoxins. Hypokalemia Likely s/t decreased PO intake. - managed with dialysis. - follow BMP. History of DVT -on low dose Eliquis, currently on hold secondary to permacath placement plans. -Continue to hold due to concerns for GI bleed. HTN -Blood pressure fluctuates however stable. -Continue amlodipine 10 mg daily and as needed clonidine. Malignant medical noncompliance The pt says he has poor living conditions. - case management assistance appreciated. - PT eval. -Patient will most likely need longterm facility once discharged Anemia S/t above conditions. - follow CBC. Hematochezia -Episode 02/15, hold Eliquis and aspirin, check CBC -Consult gastroenterology for evaluation and further recommendations. Heel wound Seems chronic. Wound care nurse consult appreciated. - dressing changes per wound care. Discussed Condition With: Discussed with patient and electroless plater Planning: Per case management's last note dated 02/13 [facility] declined patient for admission. CM will continue to follow up for LTC placement and outpatient HD.
[2018-02-15] MEDS: amLODIPine 5 MG Tablet PO SCH (15:16)
[2018-02-15 15:49] LABS: Baso % (Auto) 0.6 % (0.0-2.0); Eos # (Auto) 0.1 th/mm3 (0.0-0.4); Eos % (Auto) 1.2 % (0.0-4.0); Hemoglobin 9.8 gm/dL (13.0-17.0); Lymph # (Auto) 1.6 th/mm3 (1.0-4.8); Lymph % (Auto) 21.5 % (9.0-44.0); Mean Corpuscular HGB Conc 32.7 % (32.0-36.0); Mean Corpuscular Hemoglobin 28.4 pg (27.0-34.0); Mono # (Auto) 0.7 th/mm3 (0.0-0.9); Mono % (Auto) 9.3 % (0.0-8.0); Neut # (Auto) 4.9 th/mm3 (1.8-7.7); Neut % (Auto) 67.4 % (16.0-70.0); Platelet Count 223 th/mm3 (150-450); Red Blood Count 3.45 mil/mm3 (4.50-5.90); Red Cell Distribution Width 15.9 % (11.6-17.2); White Blood Count 7.3 th/mm3 (4.0-11.0)
--- NOTE | 2018-02-15 16:03 | XR ---
EXAM DATE: 02/15/2018 4:00 PM EDT AGE/SEX: 37 years / Male INDICATIONS: . Short of breath. CLINICAL DATA: This is the patient's subsequent encounter. Patient reports that signs and symptoms h ave been present for 1 week and indicates a pain score of 0/10. MEDICAL/SURGICAL HISTORY: . Diabetes mellitus type II . Dialysis catheter placement. [place] [facility] [place]. . FINDINGS: PA and lateral views of the chest demonstrate the lungs to be symmetrically aerated without evidence of mass, infiltrate or effusion. The cardiomediastinal contours are unremarkable. Osseous structures are intact. A Vas-Cath is in place via right internal jugular approach with its tip in the superior v whitney cava. CONCLUSION: No acute cardiopulmonary disease. Electronically signed by: David Murphy MD 02/15/2018 4:02 PM EDT
--- NOTE | 2018-02-15 16:09 | P.CONGI ---
History of Present Illness Consult date: 02/15/18 Consult reason: Rectal bleeding, diarrhea Chief complaint: dka History of Present Illness: This is a 37 yo M with PMH significant for HTN and type 1 DM with multiple complications including diabetic nephropathy, neuropathy, retinopathy, likely gastroparesis and PVD. Our service has been consulted to evaluate pt for rectal bleeding. Pt reports diarrhea that has been intermittent for the past few years, sometimes has up to 10 BMs a day. Reports fecal urgency and incontinence. He is unsure about blood in his stools because he is visually impaired and can not tell. According to RN pt had witnessed BRB in his stool earlier today. Pt does report abdominal cramping, intermittent that began this morning, worse with bowel movement.s Pt also reports nausea and vomiting that has been intermittent for the past month, states nausea every couple days. Has a prescription for Zofran he takes at home with good relief. Pt also reports heartburn, takes Omeprazole which generally controls his symptoms. Last colonoscopy done in 2003 was unremarkable. Pt does not think he has ever had an EGD. Denies known family history of UC, Crohns, and colon cancer. Drinks on occasion, states once or twice a month. Denies nicotine use. Admits to occasional marijuana use. Of note, pt was on Eliquis for DVT, however this has been discontinued for plans for a Perma-cath. 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 / EMT - Medical History Medical History: Medical History (Last Reviewed 02/13/18 @ 08:57 by Suma Lamb) AVF (arteriovenous fistula) Anxiety CKD (chronic kidney disease) stage 5, GFR less than 15 ml/min DVT (deep venous thrombosis) Depression Diabetes Diabetic retinopathy Diabetic ulcer of heel Hypertension Neuropathy - Surgical History Surgical History: Surgical History (Last Reviewed 02/13/18 @ 08:57 by Suma Lamb) Status post right foot surgery - Tobacco History Second Hand Smoke Exposure: Yes Smoking Status: Never smoker Tobacco Type: E-Cigarettes - Alcohol History How Often Do You Have a Drink Containing Alcohol: Never - Substance Use History Substance History: No History of Abuse - Travel History History of Recent Travel: No Recent Travel in the [place] Within the Last 8 Weeks: No Recent Travel Out of the Country Within the Last 8 Weeks: No - Immunization History Tetanus Immunization: Unable to Assess Hx Influenza Vaccine This Season: Unable to Assess <Isabel Celeste - Last Filed: 02/15/18 15:51> - Medical History Medical History: Medical History (Last Reviewed 02/13/18 @ 08:57 by Suma Lamb) AVF (arteriovenous fistula) Anxiety CKD (chronic kidney disease) stage 5, GFR less than 15 ml/min DVT (deep venous thrombosis) Depression Diabetes Diabetic retinopathy Diabetic ulcer of heel Hypertension Neuropathy - Surgical History Surgical History: Surgical History (Last Reviewed 02/13/18 @ 08:57 by Suma Lamb) Status post right foot surgery <Cameron Pimentel - Last Filed: 02/15/18 18:50> Medications and Allergies Active Medications: Active Medications Acetaminophen (Tylenol) 650 mg PO Q6H PRN PRN Reason: FEVER >101F Hydrocodone Bitart/Acetaminophen (Goodman 5/325) 1 tab PO Q6H PRN PRN Reason: PAIN SCALE 1 TO 10 Last Admin: 02/15/18 14:47 Dose: 1 tab Albuterol (Duoneb Neb (Prn)) 1 ampul NEB Q2HR NEB PRN PRN Reason: WHEEZING Amlodipine Besylate (Norvasc) 10 mg PO DAILY [facility] Last Admin: 02/15/18 15:16 Dose: Not Given Aspirin (Aspirin Chew) 81 mg PO DAILY [facility] Last Admin: 02/15/18 14:57 Dose: Not Given Bisacodyl (Dulcolax Supp) 10 mg RECTAL DAILY PRN PRN Reason: SEVERE CONSITIPATION Clonidine HCl (Catapres) 0.1 mg PO UNSCH PRN PRN Reason: SEE LABEL COMMENTS Last Admin: 02/10/18 00:15 Dose: 0.1 mg Clonidine HCl (Catapres) 0.2 mg PO Q6H PRN PRN Reason: SBP> OR = 180, DBP> OR = 100 Dextrose (D50w Vial) 50 ml IV.PUSH UNSCH PRN PRN Reason: PER HYPOGLYCEMIA PROTOCOL Diphenhydramine HCl (Benadryl) 25 mg PO UNSCH PRN PRN Reason: SEE LABEL COMMENTS Last Admin: 02/09/18 00:00 Dose: 25 mg Epoetin Pipo (Epogen Inj) 10,000 unit IV.PUSH MOWEFR PRN PRN Reason: SEE LABEL COMMENTS Last Admin: 02/13/18 13:03 Dose: 10,000 unit Gelatin (Gelfoam 12 Mm/7 Mm Topical) 1 foam TOPICAL PRN PRN PRN Reason: help stop bleeding from site Gentamicin Sulfate (Gentamicin Inj) 20 mg OTHER WITH DIALYSIS PRN PRN Reason: Dwell Gentamycin Lock Last Admin: 02/13/18 13:03 Dose: 20 mg Glucagon (Glucagon Inj) 1 mg OTHER PRN PRN PRN Reason: for Hypoglycemia Protocol Guaifenesin (Mucinex Er) 600 mg PO BID [facility] Last Admin: 02/15/18 14:48 Dose: 600 mg Heparin Sodium (Porcine) (Heparin Inj) 5,000 units SQ Q12HR [facility] Last Admin: 02/15/18 14:57 Dose: Not Given Heparin Sodium (Porcine) (Heparin Inj) 8,000 units IV.FLUSH WITH DIALYSIS PRN PRN Reason: for machine prime Last Admin: 02/13/18 13:03 Dose: 8,000 units Heparin Sodium (Porcine) (Heparin Inj) 1,000 units OTHER WITH DIALYSIS PRN PRN Reason: Dwell Heparin to Fill Catheter Last Admin: 02/10/18 11:58 Dose: 1,000 units Hydralazine HCl (Apresoline) 25 mg PO TID [facility] Last Admin: 02/15/18 15:16 Dose: Not Given Vancomycin HCl 1,250 mg/ (Sodium Chloride) 262.5 mls @ 250 mls/hr IV.SIG ONCE ONE Stop: 02/15/18 16:02 Sodium Phosphate 15 mmol/ (Sodium Chloride) 105 mls @ 25 mls/hr IV.SIG UNSCH PRN PRN Reason: for Phosphate Level < 1.0 Albumin Human (Flexbumin 25% Inj) 100 mls @ 60 mls/hr IV.SIG WITH DIALYSIS PRN PRN Reason: hypotension / volume replace Sodium Chloride (Ns Inj) 1,000 mls @ 0 mls/hr OTHER .Q0M PRN PRN Reason: for prime and rinse back Last Admin: 02/05/18 16:19 Dose: 200 mls/hr Sodium Chloride (Ns Inj) 1,000 mls @ 200 mls/hr OTHER .Q5H PRN PRN Reason: for dialyzer flush PRN Sodium Chloride (Ns Inj) 1,000 mls @ 0 mls/hr IV.CONT .Q0M PRN PRN Reason: hypotension / volume replace Aztreonam 500 mg/ Sodium (Chloride) 100 mls @ 200 mls/hr IV.SIG Q12H [facility] Last Admin: 02/15/18 14:47 Dose: 200 mls/hr Pharmacy Profile Note (Vancomycin Consult Pharmacy) 0 mls @ 0 mls/hr OTHER UNSCH [facility] Insulin Aspart (Novolog Insulin Correctional Sugar Inj) 0 unit SQ ACHS [facility]; Protocol Last Admin: 02/15/18 13:12 Dose: Not Given Insulin Detemir (Levemir Inj) 8 unit SQ DAILY [facility] Last Admin: 02/15/18 08:39 Dose: 8 unit Insulin Detemir (Levemir Inj) 5 unit SQ HS [facility] Last Admin: 02/14/18 21:42 Dose: 5 unit Loratadine (Claritin) 10 mg PO DAILY [facility] Last Admin: 02/15/18 14:48 Dose: 10 mg Mannitol (Mannitol Inj) 12.5 gm IV.PUSH PRN PRN PRN Reason: hypotension / volume replace Morphine Sulfate (Morphine Inj) 2 mg IV.PUSH Q3H PRN PRN Reason: PAIN SCALE 1 TO 10 Last Admin: 02/06/18 14:58 Dose: 2 mg Nitroglycerin (Nitrostat Sl) 0.4 mg SL Q5M PRN PRN Reason: CHEST PAIN Ondansetron HCl (Zofran Odt) 4 mg PO Q6H PRN PRN Reason: NAUSEA OR VOMITING Last Admin: 02/07/18 15:33 Dose: 4 mg Pantoprazole Sodium (Protonix Inj) 40 mg IV.PUSH DAILY [facility] Last Admin: 02/15/18 14:48 Dose: 40 mg Senna/Docusate Sodium (Margarita-Colace) 1 tab PO BID [facility] Last Admin: 02/15/18 13:10 Dose: Not Given Sennosides (Senokot) 17.2 mg PO Q12H PRN PRN Reason: Moderate Constipation Last Admin: 02/11/18 08:18 Dose: 17.2 mg Sertraline HCl (Zoloft) 100 mg PO DAILY [facility] Last Admin: 02/15/18 14:48 Dose: 100 mg Sodium Chloride (Ns Flush) 2 ml IV.FLUSH BID [facility] Last Admin: 02/15/18 13:09 Dose: Not Given Sodium Chloride (Ns Flush) 5 ml IV.FLUSH PRN PRN PRN Reason: flush each lumen during HD Last Admin: 02/14/18 08:27 Dose: 5 ml Topiramate (Topamax) 50 mg PO DAILY [facility] Last Admin: 02/15/18 14:48 Dose: 50 mg <Isabel Celeste - Last Filed: 02/15/18 15:51> Active Medications: Active Medications Acetaminophen (Tylenol) 650 mg PO Q6H PRN PRN Reason: FEVER >101F Hydrocodone Bitart/Acetaminophen (Goodman 5/325) 1 tab PO Q6H PRN PRN Reason: PAIN SCALE 1 TO 10 Last Admin: 02/15/18 14:47 Dose: 1 tab Albuterol (Duoneb Neb (Prn)) 1 ampul NEB Q2HR NEB PRN PRN Reason: WHEEZING Amlodipine Besylate (Norvasc) 10 mg PO DAILY [facility] Last Admin: 02/15/18 15:16 Dose: Not Given Aspirin (Aspirin Chew) 81 mg PO DAILY [facility] Last Admin: 02/15/18 14:57 Dose: Not Given Bisacodyl (Dulcolax Supp) 10 mg RECTAL DAILY PRN PRN Reason: SEVERE CONSITIPATION Clonidine HCl (Catapres) 0.1 mg PO UNSCH PRN PRN Reason: SEE LABEL COMMENTS Last Admin: 02/10/18 00:15 Dose: 0.1 mg Clonidine HCl (Catapres) 0.2 mg PO Q6H PRN PRN Reason: SBP> OR = 180, DBP> OR = 100 Dextrose (D50w Vial) 50 ml IV.PUSH UNSCH PRN PRN Reason: PER HYPOGLYCEMIA PROTOCOL Diphenhydramine HCl (Benadryl) 25 mg PO UNSCH PRN PRN Reason: SEE LABEL COMMENTS Last Admin: 02/09/18 00:00 Dose: 25 mg Epoetin Pipo (Epogen Inj) 10,000 unit IV.PUSH MOWEFR PRN PRN Reason: SEE LABEL COMMENTS Last Admin: 02/13/18 13:03 Dose: 10,000 unit Gelatin (Gelfoam 12 Mm/7 Mm Topical) 1 foam TOPICAL PRN PRN PRN Reason: help stop bleeding from site Gentamicin Sulfate (Gentamicin Inj) 20 mg OTHER WITH DIALYSIS PRN PRN Reason: Dwell Gentamycin Lock Last Admin: 02/13/18 13:03 Dose: 20 mg Glucagon (Glucagon Inj) 1 mg OTHER PRN PRN PRN Reason: for Hypoglycemia Protocol Heparin Sodium (Porcine) (Heparin Inj) 5,000 units SQ Q12HR [facility] Last Admin: 02/15/18 14:57 Dose: Not Given Heparin Sodium (Porcine) (Heparin Inj) 8,000 units IV.FLUSH WITH DIALYSIS PRN PRN Reason: for machine prime Last Admin: 02/13/18 13:03 Dose: 8,000 units Heparin Sodium (Porcine) (Heparin Inj) 1,000 units OTHER WITH DIALYSIS PRN PRN Reason: Dwell Heparin to Fill Catheter Last Admin: 02/10/18 11:58 Dose: 1,000 units Hydralazine HCl (Apresoline) 25 mg PO TID [facility] Last Admin: 02/15/18 18:04 Dose: 25 mg Sodium Phosphate 15 mmol/ (Sodium Chloride) 105 mls @ 25 mls/hr IV.SIG UNSCH PRN PRN Reason: for Phosphate Level < 1.0 Albumin Human (Flexbumin 25% Inj) 100 mls @ 60 mls/hr IV.SIG WITH DIALYSIS PRN PRN Reason: hypotension / volume replace Sodium Chloride (Ns Inj) 1,000 mls @ 0 mls/hr OTHER .Q0M PRN PRN Reason: for prime and rinse back Last Admin: 02/05/18 16:19 Dose: 200 mls/hr Sodium Chloride (Ns Inj) 1,000 mls @ 200 mls/hr OTHER .Q5H PRN PRN Reason: for dialyzer flush PRN Sodium Chloride (Ns Inj) 1,000 mls @ 0 mls/hr IV.CONT .Q0M PRN PRN Reason: hypotension / volume replace Insulin Aspart (Novolog Insulin Correctional Sugar Inj) 0 unit SQ ACHS [facility]; Protocol Last Admin: 02/15/18 17:59 Dose: Not Given Insulin Detemir (Levemir Inj) 8 unit SQ DAILY [facility] Last Admin: 02/15/18 08:39 Dose: 8 unit Insulin Detemir (Levemir Inj) 5 unit SQ HS [facility] Last Admin: 02/14/18 21:42 Dose: 5 unit Loratadine (Claritin) 10 mg PO DAILY [facility] Last Admin: 02/15/18 14:48 Dose: 10 mg Mannitol (Mannitol Inj) 12.5 gm IV.PUSH PRN PRN PRN Reason: hypotension / volume replace Morphine Sulfate (Morphine Inj) 2 mg IV.PUSH Q3H PRN PRN Reason: PAIN SCALE 1 TO 10 Last Admin: 02/06/18 14:58 Dose: 2 mg Nitroglycerin (Nitrostat Sl) 0.4 mg SL Q5M PRN PRN Reason: CHEST PAIN Ondansetron HCl (Zofran Odt) 4 mg PO Q6H PRN PRN Reason: NAUSEA OR VOMITING Last Admin: 02/07/18 15:33 Dose: 4 mg Pantoprazole Sodium (Protonix Inj) 40 mg IV.PUSH DAILY [facility] Last Admin: 02/15/18 14:48 Dose: 40 mg Senna/Docusate Sodium (Margarita-Colace) 1 tab PO BID [facility] Last Admin: 02/15/18 13:10 Dose: Not Given Sennosides (Senokot) 17.2 mg PO Q12H PRN PRN Reason: Moderate Constipation Last Admin: 02/11/18 08:18 Dose: 17.2 mg Sertraline HCl (Zoloft) 100 mg PO DAILY [facility] Last Admin: 02/15/18 14:48 Dose: 100 mg Sodium Chloride (Ns Flush) 2 ml IV.FLUSH BID [facility] Last Admin: 02/15/18 13:09 Dose: Not Given Sodium Chloride (Ns Flush) 5 ml IV.FLUSH PRN PRN PRN Reason: flush each lumen during HD Last Admin: 02/14/18 08:27 Dose: 5 ml Topiramate (Topamax) 50 mg PO DAILY [facility] Last Admin: 02/15/18 14:48 Dose: 50 mg <Hemaidan,Ammar - Last Filed: 02/15/18 18:50> Allergies Allergy/AdvReac Type Severity Reaction Status Date / Time amoxicillin Allergy Severe Rash Verified 02/05/18 08:56 broccoli Allergy Severe ANAPHYLAXIS Verified 02/05/18 08:56 mushroom Allergy Severe ANAPHYLAXIS Verified 02/05/18 08:56 penicillin G Allergy Severe Hives Verified 02/05/18 08:56 *MDRO Multi-Drug Resistant AdvReac Unknown Arrhythmias Uncoded 02/05/18 08:56 Organism Home Medications Medication Instructions Recorded Confirmed Type Multi Vitamin 01/26/18 History Vitamin D3 1,000 units 01/26/18 History apixaban [Eliquis] 5 mg PO BID 01/26/18 02/15/18 History aspirin 81 mg PO DAILY 01/26/18 02/15/18 History insulin pump-infus. set-meter 01/26/18 01/26/18 History loratadine 10 mg PO DAILY 01/26/18 02/15/18 History paricalcitol 1 mcg PO DAILY 01/26/18 02/15/18 History sertraline 100 mg PO DAILY 01/26/18 02/15/18 History topiramate 50 mg PO DAILY 01/26/18 02/15/18 History tramadol 50 mg PO Q6H 01/26/18 02/15/18 History Exam Vital signs: Vital Signs 02/14/18 16:00 02/14/18 20:00 02/15/18 00:00 Temperature 98.3 F 98.4 F 98.2 F Pulse Rate 87 86 97 H Respiratory Rate 18 17 16 Blood Pressure 138/82 148/88 H 131/73 Pulse Oximetry 98 97 98 02/15/18 04:00 02/15/18 08:00 Temperature 98.2 F 98 F Pulse Rate 84 94 H Respiratory Rate 16 16 Blood Pressure 131/73 152/95 H Pulse Oximetry 98 97 Intake & Output 02/14/18 02/15/18 02/15/18 18:59 06:59 18:59 Intake Total 1000 / 1000 450 / 450 Output Total 1999 300 / 300 1999 Balance -1000 / -1000 150 / 150 -1999 Intake: IV 100 / 100 100 / 100 Azactam Inj 500 MG In NS Inj 100 / 100 100 / 100 100 ML @ 200 mls/hr IV.SIG Q12H [facility] Rx#:[id number] Oral 900 / 900 350 / 350 Output: Urine 1999 300 / 300 Hemodialysis Amount 1999 Other: Date of Last Bowel Movement 02/13/18 02/14/18 02/14/18 - Constitutional no acute distress - Routine HEENT Exam Head: Present: normocephalic, atraumatic - Routine Respiratory Exam Absent: accessory muscle use - Routine Cardiovascular Exam Present: RRR - Routine Abdominal Exam Present: soft, normoactive bowel sounds. Absent: tenderness, distended - Routine Skin Exam Present: dry, warm - Routine Neurological Exam Present: alert, oriented X3 <BookerIsabel - Last Filed: 02/15/18 15:51> Vital signs: Vital Signs 02/14/18 20:00 02/15/18 00:00 02/15/18 04:00 Temperature 98.4 F 98.2 F 98.2 F Pulse Rate 86 97 H 84 Respiratory Rate 17 16 16 Blood Pressure 148/88 H 131/73 131/73 Pulse Oximetry 97 98 98 02/15/18 08:00 02/15/18 16:00 Temperature 98 F 98.4 F Pulse Rate 94 H 89 Respiratory Rate 16 17 Blood Pressure 152/95 H 129/74 Pulse Oximetry 97 98 Intake & Output 02/14/18 02/15/18 02/15/18 18:59 06:59 18:59 Intake Total 1000 / 1000 450 / 450 1200 / 1200 Output Total 2000 / 2000 300 / 300 2000 / 2000 Balance -1000 / -1000 150 / 150 -800 / -800 Intake: IV 100 / 100 100 / 100 Azactam Inj 500 MG In NS Inj 100 / 100 100 / 100 100 ML @ 200 mls/hr IV.SIG Q12H [facility] Rx#:[id number] Oral 900 / 900 350 / 350 1200 / 1200 Output: Urine 1999 / 2000 300 / 300 Hemodialysis Amount 1999 / 1999 Other: # Voids 6 Date of Last Bowel Movement 02/13/18 02/14/18 02/14/18 # Bowel Movements 2 <Cameron Pimentel - Last Filed: 02/15/18 18:50> Results - Labs CBC & Chem 7: 02/15/18 15:25 02/13/18 05:06 Labs: Laboratory Results - last 24 hr 02/14/18 02/14/18 02/15/18 15:55 21:30 00:40 WBC RBC Hgb Hct MCV MCH MCHC RDW Plt Count MPV Neut % (Auto) Lymph % (Auto) Fleming % (Auto) Eos % (Auto) Baso % (Auto) Neut # (Auto) Lymph # (Auto) Fleming # (Auto) Eos # (Auto) Baso # (Auto) WBC Differential Differential Comment POC Glucose 135 H 329 H 133 H Random Vancomycin 02/15/18 02/15/18 02/15/18 04:14 05:06 08:17 WBC RBC Hgb Hct MCV MCH MCHC RDW Plt Count MPV Neut % (Auto) Lymph % (Auto) Fleming % (Auto) Eos % (Auto) Baso % (Auto) Neut # (Auto) Lymph # (Auto) Fleming # (Auto) Eos # (Auto) Baso # (Auto) WBC Differential Differential Comment POC Glucose 168 H 222 H Random Vancomycin 19.9 02/15/18 02/15/18 02/15/18 08:18 13:03 15:25 WBC 7.3 RBC 3.45 L Hgb 9.8 L Hct 30.0 L MCV 87.0 MCH 28.4 MCHC 32.7 RDW 15.9 Plt Count 223 MPV 7.0 Neut % (Auto) 67.4 Lymph % (Auto) 21.5 Fleming % (Auto) 9.3 H Eos % (Auto) 1.2 Baso % (Auto) 0.6 Neut # (Auto) 4.9 Lymph # (Auto) 1.6 Fleming # (Auto) 0.7 Eos # (Auto) 0.1 Baso # (Auto) 0.0 WBC Differential . Differential Comment Auto diff final POC Glucose 207 H 89 Random Vancomycin <Isabel Celeste - Last Filed: 02/15/18 15:51> - Labs CBC & Chem 7: 02/15/18 15:25 02/13/18 05:06 Labs: Laboratory Results - last 24 hr 02/14/18 02/15/18 02/15/18 21:30 00:40 04:14 WBC RBC Hgb Hct MCV MCH MCHC RDW Plt Count MPV Neut % (Auto) Lymph % (Auto) Fleming % (Auto) Eos % (Auto) Baso % (Auto) Neut # (Auto) Lymph # (Auto) Fleming # (Auto) Eos # (Auto) Baso # (Auto) WBC Differential Differential Comment POC Glucose 329 H 133 H Random Vancomycin 19.9 02/15/18 02/15/18 02/15/18 05:06 08:17 08:18 WBC RBC Hgb Hct MCV MCH MCHC RDW Plt Count MPV Neut % (Auto) Lymph % (Auto) Fleming % (Auto) Eos % (Auto) Baso % (Auto) Neut # (Auto) Lymph # (Auto) Fleming # (Auto) Eos # (Auto) Baso # (Auto) WBC Differential Differential Comment POC Glucose 168 H 222 H 207 H Random Vancomycin 02/15/18 02/15/18 13:03 15:25 WBC 7.3 RBC 3.45 L Hgb 9.8 L Hct 30.0 L MCV 87.0 MCH 28.4 MCHC 32.7 RDW 15.9 Plt Count 223 MPV 7.0 Neut % (Auto) 67.4 Lymph % (Auto) 21.5 Fleming % (Auto) 9.3 H Eos % (Auto) 1.2 Baso % (Auto) 0.6 Neut # (Auto) 4.9 Lymph # (Auto) 1.6 Fleming # (Auto) 0.7 Eos # (Auto) 0.1 Baso # (Auto) 0.0 WBC Differential . Differential Comment Auto diff final POC Glucose 89 Random Vancomycin - Imaging Impressions Chest X-Ray 02/15/18 00:00 CONCLUSION: <Cameron Pimentel - Last Filed: 02/15/18 18:50> Assessment and Plan - Plan Assessment: - Diarrhea with witnessed BRB in stool this morning diarrhea that has been intermittent for the past few years, sometimes has up to 10 BMs a day. Reports fecal urgency and incontinence. He is unsure about blood in his stools because he is visually impaired and can not tell. According to RN pt had witnessed BRB in his stool earlier today. Pt does report abdominal cramping, intermittent that began this morning, worse with bowel movements Last colonoscopy done in 2003 was unremarkable. Denies known family history of UC, Crohns, and colon cancer. C. Diff negative. - Nausea and vomiting- intermittent for the past month, states nausea every couple days. Has a prescription for Zofran he takes at home with good relief. Pt does not think he has ever had an EGD. Drinks on occasion, states once or twice a month. Denies nicotine use. Admits to occasional marijuana use. - Heartburn- takes Omeprazole with good relief - Type 1 DM with multiple complications including diabetic nephropathy, neuropathy, retinopathy, likely gastroparesis and PVD. Pt admitted with DKA, metabolic acidosis Of note, pt was on Eliquis for DVT, however this has been discontinued for plans for a Perma-cath. Plan: EGD or colonoscopy tomorrow Obtain consent Clear liquids tomorrow Golytely prep NPO after MN Enteric pathogens Antiemetics PRN Control of BGL Further recommendations to follow Pt has been seen and examined by myself and Dr. Pimentel and this note is written on his behalf <Isabel Celeste - Last Filed: 02/15/18 15:51> - Plan Agree with above note, plan on endoscopy and colonoscopy tomorrow, <Cameron Pimentel - Last Filed: 02/15/18 18:50>
[2018-02-15] MEDS ORDERED: PEG 3350/E-Lyte Soln 4000 ML Bottle PO ONE (17:00)
[2018-02-15] MEDS ORDERED: Diatrizoate Meglum/Diatrizoate Sod Liq 9 ML UDC PO ONE (17:48)
--- NOTE | 2018-02-15 19:02 | P.PNNP ---
Subjective Interval history: Patient seen in AM during HD, no SOB, feeling better. Physical Exam Vital signs: Vital Signs 02/14/18 20:00 02/15/18 00:00 02/15/18 04:00 Temperature 98.4 F 98.2 F 98.2 F Pulse Rate 86 97 H 84 Respiratory Rate 17 16 16 Blood Pressure 148/88 H 131/73 131/73 Pulse Oximetry 97 98 98 02/15/18 08:00 02/15/18 16:00 Temperature 98 F 98.4 F Pulse Rate 94 H 89 Respiratory Rate 16 17 Blood Pressure 152/95 H 129/74 Pulse Oximetry 97 98 Intake & Output 02/15/18 02/15/18 02/16/18 06:59 18:59 06:59 Intake Total 450 / 450 1200 / 1200 Output Total 300 / 300 1999 Balance 150 / 150 -800 / -800 Intake: IV 100 / 100 Azactam Inj 500 MG In NS Inj 100 / 100 100 ML @ 200 mls/hr IV.SIG Q12H [facility] Rx#:[id number] Oral 350 / 350 1200 / 1200 Output: Urine 300 / 300 Hemodialysis Amount 1999 Other: # Voids 6 Date of Last Bowel Movement 02/14/18 02/14/18 # Bowel Movements 2 Narrative: GENERAL: This is a well-nourished, well-developed male. SKIN: Warm and dry. Pale. HEENT: Normocephalic. Pupils equal round. Nose without bleeding. Airway patent. NECK: Trachea midline. CARDIOVASCULAR: Regular rate and rhythm without murmurs, gallops, or rubs. RESPIRATORY: Clear to auscultation. Breath sounds equal bilaterally. No wheezes , rales, or rhonchi. GASTROINTESTINAL: Abdomen soft, diffuse tenderness, + bowel sounds MUSCULOSKELETAL: Extremities without clubbing, cyanosis, or edema. NEUROLOGICAL: Awake and alert. Oriented to time, place, person. No focal neuro deficit. Moves all extremities. Normal speech. Assessment and Plan - Assessment (1) End stage renal disease on dialysis Code(s): N18.6 - End stage renal disease; Z99.2 - Dependence on renal dialysis Status: Acute - Plan Patient has End stage renal disease, on HD now TTS. AVF is not ready yet. Out Patient HD is being arranged. Also need placement. BP is stable, HD to continue MWF. Will need PermCath, on Eliquis, will hold it for 48 hrs. AVF need more time for maturation. For placement and out patient HD arrangement. HD done today, Will consult Radiology for PermCath.
[2018-02-15] MEDS: Morphine Inj 4 MG/ML Vial IV.PUSH PRN ×2 (20:49→23:56)
--- NOTE | 2018-02-15 22:05 | CT ---
EXAM DATE: 02/15/2018 9:43 PM EDT AGE/SEX: 37 years / Male INDICATIONS: Abdomen pain. CLINICAL DATA: This is the patient's initial encounter. Patient reports that signs and symptoms have been present for 1 day and indicates a pain score of 4/10. MEDICAL/SURGICAL HISTORY: Renal disease. Diabetes. Hypertension. None. RADIATION DOSE: 10.97 CTDI (mGy) COMPARISON: [facility], CT ABDOMEN & PELVIS W/O CONTRAST, 11/01/2017. . TECHNIQUE: Multiple contiguous axial images were obtained through the abdomen. Images were obtained using multiple row detector helical technique. Using automated exposure control and adjustment of the mA and/or kV according to patient size, radiation dose was kept as low as reasonably achievable to o btain optimal diagnostic quality images. DICOM format image data is available electronically for rev iew and comparison. FINDINGS: Lower Lungs: There is increased linear density seen at the posterior lung bases bilaterally being mor e prominent on the left likely related to scarring or atelectasis. Liver: The liver appears enlarged. No focal hepatic lesions are seen. The gallbladder is contracted. Spleen: Homogeneous density without enlargement. There is a 2.2 cm splenule seen adjacent to the pos terior inferior aspect of the spleen. Pancreas: Unremarkable without mass or calcification. Kidneys: There are multiple low-density masses in the kidneys bilaterally measuring up to 2.3 cm at the inferior right kidney and 2.1 cm at the anterior medial mid left kidney. No hydronephrosis is see n. Adrenal Glands: Unremarkable. Aorta: The aorta and proximal iliac vessels are grossly unremarkable without aneurysmal dilation. Bowel/Mesentery: The bowel loops are grossly unremarkable. The cecum and sigmoid colon have a normal configuration. The appendix appears normal. Abdominal Wall: Intact. Retroperitoneum: No evidence of adenopathy in the retrocrural, para-aortic, or deep pelvic regions. Bladder: The urinary bladder is only mildly distended. The bladder wall appears diffusely thickened. Reproductive Organs: No abnormal masses or calcifications seen. Inguinal: The inguinal region is unremarkable without evidence of adenopathy. Bony Structures: Unremarkable. 1. No acute abnormality is seen. 2. Diffuse bladder wall thickening. This finding was present on the prior exam. It is nonspecific. S ome of this appearance may be secondary to the lack of distention. 3. Multiple low-density masses in the kidneys bilaterally likely related to cysts although these are nonspecific on this noncontrast CT examination. 4. Hepatomegaly. Electronically signed by: Jad Motta MD 02/15/2018 10:03 PM EDT
[2018-02-15] MEDS ORDERED: Metoprolol Tartrate 25 MG Tablet PO SCH (23:15)
[2018-02-15] MEDS ORDERED: Chlorhexidine Gluconate 2% 1 Pack (2 Cloths) TOPICAL SCH (23:15)
[2018-02-15] MEDS ORDERED: Sodium Chlor 0.9% Inj 500 ML IV.SIG SCH (23:45)
[2018-02-16 06:29] LABS: Activated Partial Thrombo Time 22.6 sec (24.3-30.1)
[2018-02-16 06:56] LABS: Calcium 7.9 mg/dL (8.5-10.1); Carbon Dioxide 28.3 meq/L (21.0-32.0); Potassium 3.1 meq/L (3.5-5.1)
[2018-02-16] MEDS: Dextrose 50% in Water 50 ML Vial IV.PUSH PRN (07:10)
--- NOTE | 2018-02-16 10:35 | GIPROC ---
[facility] [address] [facility]. [facility] [address] EGD PROCEDURE REPORT EXAM DATE: 02/16/2018 PATIENT NAME: Gian Watkins MR #: [id number] BIRTHDATE: 1980 ATTENDING: Cameron Pimentel MD ORDER #: [id number] SECRETARY BOOK KEEPER: Nancy Rivera Jones, Julie, and Daniel Tyson STATUS: inpatient INDICATIONS: The patient is a 37 yr old male here for an EGD due to Nausea and vomiting PROCEDURE PERFORMED: EGD w/ biopsy MEDICATIONS: None and Per Anesthesia. TOPICAL ANESTHETIC: none CONSENT: The patient understands the risks and benefits of the procedure and understands that these risks include, but are not limited to: sedation, allergic reaction, infection, perforation and/or bleeding. Alternative means of evaluation and treatment include, among others: physical exam, x-rays, and/or surgical intervention. The patient elects to proceed with this endoscopic procedure. medical equipment was checked for proper function. Hand hygiene and appropriate measures for infection prevention was taken. After the risks, benefits and alternatives of the procedure were thoroughly explained, Informed consent was verified, confirmed and timeout was successfully executed by the treatment team. The patient was anesthetized with topical anesthesia and the EC-3490Li (Pedi C) endoscope was introduced through the mouth and advanced to the second portion of the duodenum. Retroflexed views revealed no abnormalities and Retroflexed views revealed Stomach was full of fluid The gastroscope was then slowly withdrawn and removed. Irregular Z line biopsy from the EG junction. The endoscopy was otherwise normal. ADVERSE EVENTS: There were no complications. IMPRESSIONS: 1. Irregular Z line biopsy from the EG junction 2. Normal endoscopy otherwise 3. Retroflexed views revealed no abnormalities 4. Retroflexed views revealed Stomach was full of fluid RECOMMENDATIONS: 1. Await biopsy results. Biopsy results will not be ready for 7-10 days. If you don't hear from us in two weeks, call our office for biopsy results. 2. Anti-reflux regimen 3. Avoid NSAIDS 4. Gastric emptying study this can be done as an outpatient PATIENT CONDITION: stable DISPOSITION: Inpatient REPEAT EXAM: NONE Ammar Hemaidan MD eSigned: Cameron Pimentel MD 02/16/2018 10:35 AM cc:
--- NOTE | 2018-02-16 11:19 | GIPROC ---
[facility] [address] [facility]. [facility], [address] COLONOSCOPY PROCEDURE REPORT EXAM DATE: 02/16/2018 PATIENT NAME: Gian Watkins MR #: [id number] BIRTHDATE: 1980 ENDOSCOPIST: Cameron Pimentel MD ORDER #: [id number] ELECTRIC TRUCK OPERATOR: Daniel Tyson Jones, Julie, and Nancy Rivera STATUS: inpatient INDICATIONS: The patient is a 37 yr old male here for a colonoscopy due to unexplained diarrhea and Rectal bleeding PROCEDURE PERFORMED: Colonoscopy with biopsy Colonoscopy with polypectomy MEDICATIONS: None and Per Anesthesia. PREP QUALITY: fair ESTIMATED BLOOD LOSS: None CONSENT: The patient understands the risks and benefits of the procedure and understands that these risks include, but are not limited to: sedation, allergic reaction, infection, perforation and/or bleeding. Alternative means of evaluation and treatment include, among others: physical exam, x-rays, and/or surgical intervention. The patient elects to proceed with this endoscopic procedure. medical equipment was checked for proper function. Hand hygiene and appropriate measures for infection prevention was taken. After the risks, benefits and alternatives of the procedure were thoroughly explained, Informed consent was verified, confirmed and timeout was successfully executed by the treatment team. A digital exam revealed no abnormalities of the rectum The Pentax EC-3490Li endoscope was introduced through the anus and advanced to the cecum, which was identified by both the appendix and ileocecal valve. The instrument was then slowly withdrawn as the colon was fully examined. COLON FINDINGS: Large 3 cm flat polyp in the descending colon removed with multiple pieces, the site was injected with methylene blue for localization in the future. 2 polyps in the descending colon removed by snare 1 polyp in the rectum removed by snare Random biopsy in the cecum for diarrhea. Retroflexed views revealed no abnormalities The scope was then completely withdrawn from the patient and the procedure terminated. ADVERSE EVENTS: There were no complications. IMPRESSIONS: 1. Large 3 cm flat polyp in the descending colon removed with multiple pieces, the site was injected with methylene blue for localization in the future 2. 2 polyps in the descending colon removed by snare 1 polyp in the rectum removed by snare Random biopsy in the cecum for diarrhea 3. Retroflexed views revealed no abnormalities 4. Revealed no abnormalities of the rectum RECOMMENDATIONS: 1. Await biopsy results. Biopsy results will not be ready for 7-10 days. If you don't hear from us in two weeks, call our office for results. 2. Yearly hemoccult 3. Diet as tolerated RECALL: Return 3 months Colonoscopy Cameron Pimentel MD eSigned: Cameron Pimentel MD 02/16/2018 11:18 AM cc: PATIENT NAME: Gian Watkins Leeroy MR#: [id number]
--- NOTE | 2018-02-16 11:27 | P.PNGI ---
Subjective Interval history: Patient laying in bed comfortably, no more nausea and vomiting at this time, no sign of active bleeding Physical Exam Vital signs: Vital Signs 02/15/18 16:00 02/15/18 20:00 02/16/18 00:00 Temperature 98.4 F 97.9 F 97.8 F Pulse Rate 89 89 86 Respiratory Rate 17 18 18 Blood Pressure 129/74 115/69 174/108 H Pulse Oximetry 98 98 100 02/16/18 04:00 02/16/18 07:40 Temperature 97.8 F 97.2 F L Pulse Rate 89 88 Respiratory Rate 18 18 Blood Pressure 144/84 H 135/83 Pulse Oximetry 95 98 Intake & Output 02/15/18 02/16/18 02/16/18 18:59 06:59 18:59 Intake Total 1200 / 1200 Output Total 1999 Balance -800 / -800 Intake: Oral 1200 / 1200 Output: Hemodialysis Amount 1999 Other: # Voids 6 Date of Last Bowel Movement 02/14/18 02/15/18 02/16/18 # Bowel Movements 2 - Constitutional no acute distress - Routine HEENT Exam Head: Present: normocephalic, atraumatic Eye: Present: EOMI, PERRL ENT: Present: mucous membranes moist - Routine Neck Exam Present: supple, full ROM - Routine Respiratory Exam Comments: Normal lung exam - Routine Abdominal Exam Present: soft, normoactive bowel sounds Comments: No hepatosplenomegaly Results - Labs CBC & Chem 7: 02/15/18 15:25 02/16/18 05:27 Laboratory Results - last 24 hr 02/15/18 02/15/18 02/15/18 13:03 15:25 20:39 WBC 7.3 RBC 3.45 L Hgb 9.8 L Hct 30.0 L MCV 87.0 MCH 28.4 MCHC 32.7 RDW 15.9 Plt Count 223 MPV 7.0 Neut % (Auto) 67.4 Lymph % (Auto) 21.5 [place] % (Auto) 9.3 H Eos % (Auto) 1.2 Baso % (Auto) 0.6 Neut # (Auto) 4.9 Lymph # (Auto) 1.6 [place] # (Auto) 0.7 Eos # (Auto) 0.1 Baso # (Auto) 0.0 WBC Differential . Differential Comment Auto diff final PT INR APTT Sodium Potassium Chloride Carbon Dioxide Anion Gap BUN Creatinine Estimated GFR POC Glucose 89 193 H Random Glucose Calcium 02/16/18 02/16/18 02/16/18 05:27 05:27 07:32 WBC RBC Hgb Hct MCV MCH MCHC RDW Plt Count MPV Neut % (Auto) Lymph % (Auto) [place] % (Auto) Eos % (Auto) Baso % (Auto) Neut # (Auto) Lymph # (Auto) [place] # (Auto) Eos # (Auto) Baso # (Auto) WBC Differential Differential Comment PT 10.0 INR 1.0 APTT 22.6 L Sodium 144 Potassium 3.1 L Chloride 107 Carbon Dioxide 28.3 Anion Gap 9 BUN 23 H Creatinine 2.97 H Estimated GFR 24 L POC Glucose 155 H Random Glucose 41 L* Calcium 7.9 L 02/16/18 08:29 WBC RBC Hgb Hct MCV MCH MCHC RDW Plt Count MPV Neut % (Auto) Lymph % (Auto) [place] % (Auto) Eos % (Auto) Baso % (Auto) Neut # (Auto) Lymph # (Auto) [place] # (Auto) Eos # (Auto) Baso # (Auto) WBC Differential Differential Comment PT INR APTT Sodium Potassium Chloride Carbon Dioxide Anion Gap BUN Creatinine Estimated GFR POC Glucose 148 H Random Glucose Calcium Microbiology 02/15/18 22:45 Stool Enteric Pathogens (PCR) - Final No enteric pathogens detected by PCR (No Salmonella sp., Shigella sp., Campylobacter sp., Yersinia enterocolitica, Vibrio sp., Norovirus, or EHEC (Shiga Toxin 1 or Shiga Toxin 2) detected. - Imaging Impressions Abdomen/Pelvis CT 02/15/18 00:00 CONCLUSION: Chest X-Ray 02/15/18 00:00 CONCLUSION: No acute cardiopulmonary disease. - Procedures RIGHT SIDE HD CATHETER PLACEMENT HD Assessment and Plan - Plan Patient has multiple medical problems including diabetes chronic renal failure, anemia could be related to chronic disease, hemoglobin stable, patient has no nausea or vomiting at this time most likely he had DKA when he first came which contributing to his symptoms, patient had an upper endoscopy and colonoscopy today EGD was normal except irregular Z line biopsy was done Colonoscopy showed multiple polyps 1 of them was flat large could be a reason for bleeding these polyps were removed Recommendation Diet as tolerated Follow-up biopsy Diabetes control Repeat colonoscopy in 3 months Okay to discharge from GI plan
[2018-02-16] MEDS ORDERED: Lidocaine PF 1% Inj 5 ML Syringe INFILTRATN ONE (12:00)
--- NOTE | 2018-02-16 12:28 | P.PN ---
Subjective Interval history: Follow-up visit for diabetes mellitus, HTN, DVT, CKD on HD and hematochezia. Nurse reports blood sugar this morning of 41 he was given D5 and blood sugar improved to 155. Levemir dose only 3 units this morning, went to GI lab for upper and lower endoscopies. No permacath placement today as patient received anesthesia today and is unable to consent, permacath placement on Monday. Patient is seen and examined sitting on the toilet, still with the effects of bowel prep. He denies any dizziness, lightheadedness, fevers, chills, shortness of breath, nausea or vomiting. Some coughing earlier today, nonproductive. Patient is requesting to be placed back on his insulin pump for better management of diabetes and supplementation of his carb intake. Physical Exam Vital signs: Vital Signs 02/15/18 16:00 02/15/18 20:00 02/16/18 00:00 Temperature 36.9 C 36.6 C 36.6 C Pulse Rate 89 89 86 Respiratory Rate 17 18 Blood Pressure 129/74 115/69 174/108 H Pulse Oximetry 98 98 100 02/16/18 04:00 02/16/18 07:40 02/16/18 11:28 Temperature 36.6 C 36.2 C L 36.6 C Pulse Rate 89 88 80 Respiratory Rate 18 18 18 Blood Pressure 144/84 H 135/83 136/82 Pulse Oximetry 95 98 98 Intake & Output 02/15/18 02/16/18 02/16/18 18:59 06:59 18:59 Intake Total 1200 / 1200 Output Total 1999 Balance -800 / -800 Intake: Oral 1200 / 1200 Output: Hemodialysis Amount 1999 Other: # Voids 6 Date of Last Bowel Movement 02/14/18 02/15/18 02/16/18 # Bowel Movements 2 Narrative: GENERAL: This is a well-nourished, well-developed male. SKIN: Warm and dry. Pale. HEENT: Normocephalic. Pupils equal round. Nose without bleeding. Airway patent. NECK: Trachea midline. CARDIOVASCULAR: Regular rate and rhythm without murmurs, gallops, or rubs. RESPIRATORY: Clear to auscultation. Breath sounds equal bilaterally. No wheezes , rales, or rhonchi. GASTROINTESTINAL: Abdomen soft, diffuse tenderness, + bowel sounds MUSCULOSKELETAL: Extremities without clubbing, cyanosis, or edema. NEUROLOGICAL: Awake and alert. Oriented to time, place, person. No focal neuro deficit. Moves all extremities. Normal speech. Results - Labs CBC & Chem 7: 02/15/18 15:25 02/16/18 05:27 Laboratory Results - last 24 hr 02/15/18 02/15/18 02/15/18 13:03 15:25 20:39 WBC 7.3 RBC 3.45 L Hgb 9.8 L Hct 30.0 L MCV 87.0 MCH 28.4 MCHC 32.7 RDW 15.9 Plt Count 223 MPV 7.0 Neut % (Auto) 67.4 Lymph % (Auto) 21.5 [place] % (Auto) 9.3 H Eos % (Auto) 1.2 Baso % (Auto) 0.6 Neut # (Auto) 4.9 Lymph # (Auto) 1.6 [place] # (Auto) 0.7 Eos # (Auto) 0.1 Baso # (Auto) 0.0 WBC Differential . Differential Comment Auto diff final PT INR APTT Sodium Potassium Chloride Carbon Dioxide Anion Gap BUN Creatinine Estimated GFR POC Glucose 89 193 H Random Glucose Calcium 02/16/18 02/16/18 02/16/18 05:27 05:27 07:32 WBC RBC Hgb Hct MCV MCH MCHC RDW Plt Count MPV Neut % (Auto) Lymph % (Auto) [place] % (Auto) Eos % (Auto) Baso % (Auto) Neut # (Auto) Lymph # (Auto) [place] # (Auto) Eos # (Auto) Baso # (Auto) WBC Differential Differential Comment PT 10.0 INR 1.0 APTT 22.6 L Sodium 144 Potassium 3.1 L Chloride 107 Carbon Dioxide 28.3 Anion Gap 9 BUN 23 H Creatinine 2.97 H Estimated GFR 24 L POC Glucose 155 H Random Glucose 41 L* Calcium 7.9 L 02/16/18 08:29 WBC RBC Hgb Hct MCV MCH MCHC RDW Plt Count MPV Neut % (Auto) Lymph % (Auto) [place] % (Auto) Eos % (Auto) Baso % (Auto) Neut # (Auto) Lymph # (Auto) [place] # (Auto) Eos # (Auto) Baso # (Auto) WBC Differential Differential Comment PT INR APTT Sodium Potassium Chloride Carbon Dioxide Anion Gap BUN Creatinine Estimated GFR POC Glucose 148 H Random Glucose Calcium Microbiology 02/15/18 22:45 Stool Enteric Pathogens (PCR) - Final No enteric pathogens detected by PCR (No Salmonella sp., Shigella sp., Campylobacter sp., Yersinia enterocolitica, Vibrio sp., Norovirus, or EHEC (Shiga Toxin 1 or Shiga Toxin 2) detected. - Imaging Impressions Abdomen/Pelvis CT 02/15/18 00:00 CONCLUSION: Chest X-Ray 02/15/18 00:00 CONCLUSION: No acute cardiopulmonary disease. - Procedures RIGHT SIDE HD CATHETER PLACEMENT HD Assessment and Plan - Plan Severe metabolic acidosis/ DM Secondary to diabetic ketoacidosis/renal failure/diarrhea. S/p insulin drip. -Accu-Cheks with insulin sliding scale. - Monitor and replete electrolytes as needed. -Hypoglycemic event this morning, likely due to n.p.o. status. Levemir decreased to 3 units twice daily, continue monitoring blood sugars closely -Consider endocrinology consult to start insulin pump. HCAP CXR 02/09 with persistent right infiltrate. - vancomycin and aztreonam started 02/08. -On room air with no respiratory complaints. Repeat chest x-ray 02/15 with no acute cardiopulmonary disease. -Discontinue antibiotics, encourage, incentive spirometry. LARS/CKD Nephrology following, greatly appreciate assistance -Fistula in place however not yet mature. Vas-Cath in place, will need permacath placement until fistula matures for HD -Scheduled for HD treatments Monday, Monday, Monday -avoid nephrotoxins. Hypokalemia Likely s/t decreased PO intake. - managed with dialysis. -Potassium level this morning 3.1, replacement with p.o. and recheck BMP tomorrow. History of DVT -on low dose Eliquis, currently on hold secondary to permacath placement plans. -Continue to hold due to concerns for GI bleed. HTN -Blood pressure fluctuates however stable. -Continue amlodipine 10 mg daily and as needed clonidine. Malignant medical noncompliance The pt says he has poor living conditions. - case management assistance appreciated. - PT eval. -Patient will most likely need care home facility once discharged Anemia S/t above conditions. - follow CBC. Hematochezia -Episode 02/15, hold Eliquis and aspirin, H&H stable -Consult gastroenterology for evaluation and further recommendations. -Upper endoscopy and colonoscopy 02/16. Irregular Z line biopsies taken during upper EGD. Colonoscopy with multiple polyps one polyp flattened and large possibly the reason behind bleeding. Polyps were removed. -Recommendations to repeat colonoscopy in 3 months, okay to discharge from GI standpoint. -We will need to clarify okay to resume Eliquis, aspirin, and subcu heparin if needed. Heel wound Seems chronic. Wound care nurse consult appreciated. - dressing changes per wound care. DVT prophylaxis-SCDs Discussed Condition With: Discussed with patient and sdet Planning: Per case management's last note dated 02/13 [facility] declined patient for admission. CM will continue to follow up for LTC placement and outpatient HD.
[2018-02-16] MEDS: hydrALAZINE 25 MG Tablet PO SCH ×3 (12:49→17:38)
[2018-02-16] MEDS: Loratadine 10 MG Tablet PO SCH (12:52)
[2018-02-16] MEDS: Insulin NovoLOG Aspart Correctional Sugar Inj SQ SCH ×4 (17:30→20:58)
[2018-02-16] MEDS: Insulin Detemir Inj 1,000 UNIT/10 ML Vial SQ SCH ×2 (17:33→20:59)
[2018-02-16] MEDS: amLODIPine 5 MG Tablet PO SCH (17:33)
[2018-02-16] MEDS: Pantoprazole Inj 40 MG Vial IV.PUSH SCH (17:33)
[2018-02-16] MEDS: Senna/Docusate Sodium 8.6/50 MG Tablet PO SCH ×2 (17:33→21:00)
[2018-02-16] MEDS: Topiramate 25 MG Tablet PO SCH (17:34)
[2018-02-16] MEDS: Sertraline 100 MG Tablet PO SCH (17:34)
--- NOTE | 2018-02-16 18:57 | P.PNNP ---
Subjective Interval history: Patient seen in AM, after the GI work up, not in distress. Physical Exam Vital signs: Vital Signs 02/15/18 20:00 02/16/18 00:00 02/16/18 04:00 Temperature 97.9 F 97.8 F 97.8 F Pulse Rate 89 86 89 Respiratory Rate 18 18 18 Blood Pressure 115/69 174/108 H 144/84 H Pulse Oximetry 98 100 95 02/16/18 07:40 02/16/18 11:28 02/16/18 12:58 Temperature 97.2 F L 97.8 F 97.7 F Pulse Rate 88 80 89 Respiratory Rate 18 18 16 Blood Pressure 135/83 136/82 132/84 Pulse Oximetry 98 98 99 02/16/18 16:00 Temperature 97.5 F L Pulse Rate 86 Respiratory Rate 17 Blood Pressure 126/56 L Pulse Oximetry 95 Intake & Output 02/15/18 02/16/18 02/16/18 18:59 06:59 18:59 Intake Total 1200 / 1200 400 / 400 Output Total 1999 200 / 200 Balance -800 / -800 200 / 200 Intake: IV 400 / 400 LR 1000 mL Inj 1,000 ML @ 30 400 / 400 mls/hr IV.SIG .Q24H JORDAN Rx#: [id number] Oral 1200 / 1200 Output: Urine 200 / 200 Hemodialysis Amount 1999 Other: # Voids 6 Date of Last Bowel Movement 02/14/18 02/15/18 02/16/18 # Bowel Movements 2 Narrative: GENERAL: This is a well-nourished, well-developed male. SKIN: Warm and dry. Pale. HEENT: Normocephalic. Pupils equal round. Nose without bleeding. Airway patent. NECK: Trachea midline. CARDIOVASCULAR: Regular rate and rhythm without murmurs, gallops, or rubs. RESPIRATORY: Clear to auscultation. Breath sounds equal bilaterally. No wheezes , rales, or rhonchi. GASTROINTESTINAL: Abdomen soft, diffuse tenderness, + bowel sounds MUSCULOSKELETAL: Extremities without clubbing, cyanosis, or edema. NEUROLOGICAL: Awake and alert. Oriented to time, place, person. No focal neuro deficit. Moves all extremities. Normal speech. Assessment and Plan - Assessment (1) End stage renal disease on dialysis Code(s): N18.6 - End stage renal disease; Z99.2 - Dependence on renal dialysis Status: Acute - Plan Patient has End stage renal disease, on HD now TTS. AVF is not ready yet. Out Patient HD is being arranged. Also need placement. BP is stable, HD to continue MWF. Will need PermCath, Eliquis is on hold. AVF need more time for maturation. For placement and out patient HD arrangement. HD done yesterday. Has EGD and Colonoscopy done, results noted. PermCath will be on Monday, as he has anesthesia done today.
[2018-02-17 07:22] LABS: Calcium 7.4 mg/dL (8.5-10.1); Carbon Dioxide 23.6 meq/L (21.0-32.0); Potassium 3.7 meq/L (3.5-5.1); Vancomycin,Random 7.9 Comment
[2018-02-17 07:51] LABS: Total Protein 4.9 g/dL (6.4-8.2)
[2018-02-17] MEDS: Insulin Detemir Inj 1,000 UNIT/10 ML Vial SQ SCH ×2 (08:25→22:30)
[2018-02-17] MEDS: hydrALAZINE 25 MG Tablet PO SCH ×3 (08:25→17:38)
[2018-02-17] MEDS: Senna/Docusate Sodium 8.6/50 MG Tablet PO SCH ×2 (08:26→22:56)
[2018-02-17] MEDS: Topiramate 25 MG Tablet PO SCH (08:26)
[2018-02-17] MEDS: Sertraline 100 MG Tablet PO SCH (08:26)
[2018-02-17] MEDS: Pantoprazole Inj 40 MG Vial IV.PUSH SCH (08:26)
[2018-02-17] MEDS: Loratadine 10 MG Tablet PO SCH (08:26)
[2018-02-17] MEDS: amLODIPine 5 MG Tablet PO SCH (08:26)
[2018-02-17] MEDS: Insulin NovoLOG Aspart Correctional Sugar Inj SQ SCH ×4 (08:31→22:54)
--- NOTE | 2018-02-17 09:55 | P.PNNP ---
Subjective Interval history: Patient seen during HD, no diarrhea, mild abd. discomfort. Physical Exam Vital signs: Vital Signs 02/16/18 11:28 02/16/18 12:58 02/16/18 16:00 Temperature 97.8 F 97.7 F 97.5 F L Pulse Rate 80 89 86 Respiratory Rate 18 16 17 Blood Pressure 136/82 132/84 126/56 L Pulse Oximetry 98 99 95 02/16/18 18:59 02/16/18 23:40 02/17/18 08:00 Temperature 98.4 F 98.4 F 97.7 F Pulse Rate 101 H 100 H 93 H Respiratory Rate 18 18 18 Blood Pressure 109/65 133/80 163/89 H Pulse Oximetry 97 96 97 Intake & Output 02/16/18 02/17/18 02/17/18 18:59 06:59 18:59 Intake Total 400 / 400 480 / 480 Output Total 200 / 200 1550 / 1550 Balance 200 / 200 -1070 / -1070 Weight 68 kg Intake: IV 400 / 400 LR 1000 mL Inj 1,000 ML @ 30 400 / 400 mls/hr IV.SIG .Q24H JORDAN Rx#: [id number] Oral 480 / 480 Output: Urine 200 / 200 1550 / 1550 Other: Date of Last Bowel Movement 02/16/18 02/16/18 # Bowel Movements 0 Narrative: GENERAL: This is a well-nourished, well-developed male. SKIN: Warm and dry. Pale. HEENT: Normocephalic. Pupils equal round. Nose without bleeding. Airway patent. NECK: Trachea midline. CARDIOVASCULAR: Regular rate and rhythm without murmurs, gallops, or rubs. RESPIRATORY: Clear to auscultation. Breath sounds equal bilaterally. No wheezes , rales, or rhonchi. GASTROINTESTINAL: Abdomen soft, diffuse tenderness, + bowel sounds MUSCULOSKELETAL: Extremities without clubbing, cyanosis, or edema. NEUROLOGICAL: Awake and alert. Oriented to time, place, person. No focal neuro deficit. Moves all extremities. Normal speech. Assessment and Plan - Assessment (1) End stage renal disease on dialysis Code(s): N18.6 - End stage renal disease; Z99.2 - Dependence on renal dialysis Status: Acute - Plan Patient has End stage renal disease, on HD now TTS. AVF is not ready yet. Out Patient HD is being arranged. Also need placement. BP is stable, HD to continue MWF. Will need PermCath, Eliquis is on hold. AVF need more time for maturation. For placement and out patient HD arrangement. Has EGD and Colonoscopy done on 02/16., results noted. PermCath will be on Monday, as he has anesthesia done for GI procedure on 02/16. HD now, remove fluid as tolerated. Awaiting placement.
[2018-02-17] MEDS: Heparin 10,000 UNITS/10 ML Vial (for IV use) OTHER PRN (10:18)
[2018-02-17] MEDS: Sod Chloride 0.9% Inj 1,000 ML OTHER PRN (10:19)
--- NOTE | 2018-02-17 12:02 | P.PN ---
Subjective Interval history: Follow-up visit for diabetes mellitus type 1, HTN, DVT, chronic kidney disease on hemodialysis and hematochezia. Spoke with RN who reports patient had an elevated blood sugar this morning of 395. Patient received Levemir 8 units as well as sliding scale coverage. Later today patient is seen and examined during dialysis session. Nurse reports low blood sugar and following hypoglycemic protocol, patient asymptomatic. He denies any fevers, chills, cough, shortness of breath, chest pain, dizziness or lightheadedness. Patient is requesting to use his own insulin pump. Physical Exam Vital signs: Vital Signs 02/16/18 12:58 02/16/18 16:00 02/16/18 18:59 Temperature 36.5 C 36.4 C L 36.9 C Pulse Rate 89 86 101 H Respiratory Rate 16 17 18 Blood Pressure 132/84 126/56 L 109/65 Pulse Oximetry 99 95 97 02/16/18 23:40 02/17/18 08:00 Temperature 36.9 C 36.5 C Pulse Rate 100 H 93 H Respiratory Rate 18 18 Blood Pressure 133/80 163/89 H Pulse Oximetry 96 97 Intake & Output 02/16/18 02/17/18 02/17/18 18:59 06:59 18:59 Intake Total 400 / 400 480 / 480 Output Total 200 / 200 1550 / 1550 Balance 200 / 200 -1070 / -1070 Weight 68 kg Intake: IV 400 / 400 LR 1000 mL Inj 1,000 ML @ 30 400 / 400 mls/hr IV.SIG .Q24H JORDAN Rx#: [id number] Oral 480 / 480 Output: Urine 200 / 200 1550 / 1550 Other: Date of Last Bowel Movement 02/16/18 02/16/18 02/16/18 # Bowel Movements 0 Narrative: GENERAL: This is a well-nourished, well-developed male. SKIN: Warm and dry. Pale. HEENT: Normocephalic. Pupils equal round. Nose without bleeding. Airway patent. NECK: Trachea midline. CARDIOVASCULAR: Regular rate and rhythm without murmurs, gallops, or rubs. Right lower extremity AV fistula with positive bruit and thrill. RESPIRATORY: Clear to auscultation. Breath sounds equal bilaterally. No wheezes , rales, or rhonchi. GASTROINTESTINAL: Abdomen soft, diffuse tenderness, + bowel sounds MUSCULOSKELETAL: Extremities without clubbing, cyanosis, or edema. NEUROLOGICAL: Awake and alert. Oriented to time, place, person. No focal neuro deficit. Moves all extremities. Normal speech. Results - Labs CBC & Chem 7: 02/15/18 15:25 02/17/18 06:17 Laboratory Results - last 24 hr 02/16/18 02/16/18 02/16/18 12:47 17:29 20:50 Sodium Potassium Chloride Carbon Dioxide Anion Gap BUN Creatinine Estimated GFR POC Glucose 79 174 H 272 H Random Glucose Calcium Prot Corrected Calcium Total Protein Random Vancomycin 02/17/18 02/17/18 02/17/18 06:17 08:22 11:04 Sodium 140 Potassium 3.7 Chloride 106 Carbon Dioxide 23.6 Anion Gap 10 BUN 23 H Creatinine 3.80 H Estimated GFR 18 L POC Glucose 395 H 57 L Random Glucose 329 H D Calcium 7.4 L* Prot Corrected Calcium 8.6 Total Protein 4.9 L Random Vancomycin 7.9 02/17/18 02/17/18 11:06 11:19 Sodium Potassium Chloride Carbon Dioxide Anion Gap BUN Creatinine Estimated GFR POC Glucose 65 L 69 Random Glucose Calcium Prot Corrected Calcium Total Protein Random Vancomycin Microbiology 02/15/18 22:45 Stool Enteric Pathogens (PCR) - Final No enteric pathogens detected by PCR (No Salmonella sp., Shigella sp., Campylobacter sp., Yersinia enterocolitica, Vibrio sp., Norovirus, or EHEC (Shiga Toxin 1 or Shiga Toxin 2) detected. - Procedures RIGHT SIDE HD CATHETER PLACEMENT HD Assessment and Plan - Plan Severe metabolic acidosis/ DM Secondary to diabetic ketoacidosis/renal failure/diarrhea. S/p insulin drip. -Accu-Cheks with insulin sliding scale. -Hypoglycemic event again this morning. Decrease am Levemir dose to 4units, and Levemir 3 units HS -ISS with no more than 7 units of NovoLOG with BS >300 due to recent episodes of hypoglycemia -Consult endocrinology for further recommendations and possibly starting insulin pump, greatly appreciate assistance. HCAP, resolved CXR 02/09 with persistent right infiltrate. - vancomycin and aztreonam started 02/08. -On room air with no respiratory complaints. Repeat chest x-ray 02/15 with no acute cardiopulmonary disease. -Discontinue antibiotics, encourage, incentive spirometry. LARS/CKD Nephrology following, greatly appreciate assistance -Fistula in place however not yet mature. Vas-Cath in place, will need permacath placement to be done Monday -HD T/Betty./Sat -avoid nephrotoxins. Hypokalemia Likely s/t decreased PO intake. - managed with dialysis. -s/p replacement, K today 3.7 History of DVT -on low dose Eliquis, currently on hold secondary to permacath placement plans. HTN -Blood pressure fluctuates however stable. -Continue amlodipine 10 mg daily and as needed clonidine. Malignant medical noncompliance The pt says he has poor living conditions. - case management assistance appreciated. - PT eval. -Patient will most likely need shelter facility once discharged Anemia S/t above conditions. - follow CBC. Hematochezia -Episode 02/15, hold Eliquis and aspirin, H&H stable -Consult gastroenterology for evaluation and further recommendations. -Upper endoscopy and colonoscopy 02/16. Irregular Z line biopsies taken during upper EGD. Colonoscopy with multiple polyps one polyp flattened and large possibly the reason behind bleeding. Polyps were removed. -Recommendations to repeat colonoscopy in 3 months, okay to discharge from GI standpoint. -We will need to clarify if okay to resume Eliquis and ASA once permacath is placed. Heel wound Seems chronic. Wound care nurse consult appreciated. - dressing changes per wound care. DVT prophylaxis-SCDs Discussed Condition With: Discussed with patient, RN, and umbrella supervisor. Discharge Planning: Per case management's last note dated 02/13 [facility] declined patient for admission. CM will continue to follow up for LTC placement and outpatient HD.
--- NOTE | 2018-02-17 15:18 | P.PNGI ---
Subjective Interval history: Pt is resting in bed, just got back from dialysis, waiting on his lunch tray. Denies n/V, diarrhea is much better. Physical Exam Vital signs: Vital Signs 02/16/18 16:00 02/16/18 18:59 02/16/18 23:40 Temperature 97.5 F L 98.4 F 98.4 F Pulse Rate 86 101 H 100 H Respiratory Rate 17 18 18 Blood Pressure 126/56 L 109/65 133/80 Pulse Oximetry 95 97 96 02/17/18 08:00 Temperature 97.7 F Pulse Rate 93 H Respiratory Rate 18 Blood Pressure 163/89 H Pulse Oximetry 97 Intake & Output 02/16/18 02/17/18 02/17/18 18:59 06:59 18:59 Intake Total 400 / 400 480 / 480 Output Total 200 / 200 1550 / 1550 1999 Balance 200 / 200 -1070 / -1070 -1999 Weight 68 kg Intake: IV 400 / 400 LR 1000 mL Inj 1,000 ML @ 30 400 / 400 mls/hr IV.SIG .Q24H JORDAN Rx#: [id number] Oral 480 / 480 Output: Urine 200 / 200 1550 / 1550 Hemodialysis Amount 1999 Other: Date of Last Bowel Movement 02/16/18 02/16/18 02/16/18 # Bowel Movements 0 - Constitutional no acute distress - Routine HEENT Exam Head: Present: normocephalic - Routine Neck Exam Present: supple - Routine Respiratory Exam Present: CTA bilaterally - Routine Cardiovascular Exam Present: RRR - Routine Abdominal Exam Present: soft, normoactive bowel sounds. Absent: tenderness, distended - Routine Skin Exam Present: intact, dry - Routine Neurological Exam Present: alert, oriented X3 Results - Labs CBC & Chem 7: 02/15/18 15:25 02/17/18 06:17 Laboratory Results - last 24 hr 02/16/18 02/16/18 02/17/18 17:29 20:50 06:17 Sodium 140 Potassium 3.7 Chloride 106 Carbon Dioxide 23.6 Anion Gap 10 BUN 23 H Creatinine 3.80 H Estimated GFR 18 L POC Glucose 174 H 272 H Random Glucose 329 H D Calcium 7.4 L* Prot Corrected Calcium 8.6 Total Protein 4.9 L Random Vancomycin 7.9 02/17/18 02/17/18 02/17/18 08:22 11:04 11:06 Sodium Potassium Chloride Carbon Dioxide Anion Gap BUN Creatinine Estimated GFR POC Glucose 395 H 57 L 65 L Random Glucose Calcium Prot Corrected Calcium Total Protein Random Vancomycin 02/17/18 02/17/18 11:19 11:59 Sodium Potassium Chloride Carbon Dioxide Anion Gap BUN Creatinine Estimated GFR POC Glucose 69 86 Random Glucose Calcium Prot Corrected Calcium Total Protein Random Vancomycin - Procedures RIGHT SIDE HD CATHETER PLACEMENT HD Assessment and Plan - Plan - Diarrhea with one episode of rectal bleed- Stools negative for C-diff S/P EGD/colonoscopy on 02/16/18 EGD was normal except irregular Z line biopsy was done Colonoscopy showed multiple polyps 1 of them was flat large could be a reason for bleeding these polyps were removed CT on 02/15/18 showed no acute findings, showed bladder wall thickening and low density masses in the kidneys, and hepatomegaly - Anemia- Patient has multiple medical problems including diabetes chronic renal failure, anemia could be related to chronic disease, hemoglobin stable, - Nausea/vomiting- no nausea or vomiting at this time most likely this was secondary to DKA - DM, ESRD on HD Plan: Diet as tolerated Follow-up biopsy Diabetes control Repeat colonoscopy in 3 months Okay to discharge from GI stand point F/u with GI upon discharge Consider [facility] as an OP Pt seen and examined by Dr. Alejandra and myself and this note is written on his behalf.
[2018-02-18] MEDS: Morphine Inj 4 MG/ML Vial IV.PUSH PRN ×4 (01:26→20:11)
[2018-02-18] MEDS: amLODIPine 5 MG Tablet PO SCH (09:02)
[2018-02-18] MEDS: hydrALAZINE 25 MG Tablet PO SCH ×3 (09:02→17:21)
[2018-02-18] MEDS: Loratadine 10 MG Tablet PO SCH (09:02)
[2018-02-18] MEDS: Senna/Docusate Sodium 8.6/50 MG Tablet PO SCH ×2 (09:03→20:12)
[2018-02-18] MEDS: Sertraline 100 MG Tablet PO SCH (09:03)
[2018-02-18] MEDS: Pantoprazole Inj 40 MG Vial IV.PUSH SCH (09:04)
[2018-02-18] MEDS: Topiramate 25 MG Tablet PO SCH (09:04)
[2018-02-18] MEDS: Insulin NovoLOG Aspart Correctional Sugar Inj SQ SCH ×4 (09:48→20:21)
[2018-02-18] MEDS: Insulin Detemir Inj 1,000 UNIT/10 ML Vial SQ SCH ×2 (09:48→20:21)
--- NOTE | 2018-02-18 12:02 | P.PN ---
Subjective Interval history: Follow-up visit for diabetes mellitus type 1, HTN, DVT, CKD on HD and hematochezia. Patient is seen and examined resting in bed in no acute. He denies any fevers, chills, nausea, vomiting, diarrhea, cough, shortness of breath or chest pain. Discussed high blood sugar overnight, pending endocrinology consult. Physical Exam Vital signs: Vital Signs 02/17/18 16:00 02/17/18 19:16 02/17/18 23:11 Temperature 37.0 C 36.8 C 37.1 C Pulse Rate 105 H 101 H 102 H Respiratory Rate 18 Blood Pressure 145/75 H 135/80 167/99 H Pulse Oximetry 97 98 97 02/18/18 01:48 02/18/18 03:45 02/18/18 04:10 Temperature 36.9 C Pulse Rate 92 H Respiratory Rate 18 Blood Pressure 130/82 Pulse Oximetry 97 02/18/18 08:00 Temperature 36.7 C Pulse Rate 92 H Respiratory Rate 16 Blood Pressure 106/58 L Pulse Oximetry 96 Intake & Output 02/17/18 02/18/18 02/18/18 18:59 06:59 18:59 Intake Total 1000 / 1000 480 / 480 Output Total 3400 / 3400 Balance -2400 / -2400 480 / 480 Weight 68 kg Intake: Oral 1000 / 1000 480 / 480 Output: Urine 1400 / 1400 Hemodialysis Amount 1999 / 1999 Other: # Voids 2 480 Date of Last Bowel Movement 02/16/18 02/17/18 # Bowel Movements 1 0 Narrative: GENERAL: This is a well-nourished, well-developed male. SKIN: Warm and dry. Pale. HEENT: Normocephalic. Pupils equal round. Nose without bleeding. Airway patent. NECK: Trachea midline. CARDIOVASCULAR: Regular rate and rhythm without murmurs, gallops, or rubs. Right lower extremity AV fistula with positive bruit and thrill. RESPIRATORY: Clear to auscultation. Breath sounds equal bilaterally. No wheezes , rales, or rhonchi. GASTROINTESTINAL: Abdomen soft, diffuse tenderness, + bowel sounds MUSCULOSKELETAL: Extremities without clubbing, cyanosis, or edema. NEUROLOGICAL: Awake and alert. Oriented to time, place, person. No focal neuro deficit. Moves all extremities. Normal speech. Results - Labs CBC & Chem 7: 02/15/18 15:25 07/28/18 20:35 Laboratory Results - last 24 hr 02/17/18 02/17/18 02/17/18 11:59 15:43 19:40 POC Glucose 86 121 H Greater than 600 H* Random Glucose 02/17/18 02/17/18 02/18/18 20:35 23:21 00:44 POC Glucose 552 H* 339 H Random Glucose 654 H* D 02/18/18 02/18/18 06:24 09:15 POC Glucose 169 H 222 H Random Glucose - Procedures RIGHT SIDE HD CATHETER PLACEMENT HD Assessment and Plan - Plan Severe metabolic acidosis/ DM Secondary to diabetic ketoacidosis/renal failure/diarrhea. S/p insulin drip. -Accu-Cheks with insulin sliding scale. -Brittle diabetic, hyperglycemia overnight with blood sugar greater than 600, additional dose of NovoLog overnight, this morning blood sugars in the mid 100s- 200s. -Consult endocrinology for further recommendations and possibly starting insulin pump, greatly appreciate assistance. HCAP, resolved CXR 02/09 with persistent right infiltrate. - vancomycin and aztreonam started 02/08. -On room air with no respiratory complaints. Repeat chest x-ray 02/15 with no acute cardiopulmonary disease. -Discontinue antibiotics, encourage, incentive spirometry. LARS/CKD Nephrology following, greatly appreciate assistance -Fistula in place however not yet mature. Vas-Cath in place, will need permacath placement to be done Monday -HD T/Mon./Sat -avoid nephrotoxins. Hypokalemia Likely s/t decreased PO intake. - managed with dialysis. -s/p replacement, K 3.7 History of DVT -on low dose Eliquis, currently on hold secondary to permacath placement plans. HTN -Blood pressure fluctuates however stable. -Continue amlodipine 10 mg daily and as needed clonidine. Malignant medical noncompliance The pt says he has poor living conditions. - case management assistance appreciated. - PT artemio. -Patient will most likely need residential facility once discharged Anemia S/t above conditions. - follow CBC. Hematochezia -Episode 02/15, hold Eliquis and aspirin, H&H stable -Consult gastroenterology for evaluation and further recommendations. -Upper endoscopy and colonoscopy 02/16. Irregular Z line biopsies taken during upper EGD. Colonoscopy with multiple polyps one polyp flattened and large possibly the reason behind bleeding. Polyps were removed. -Recommendations to repeat colonoscopy in 3 months, okay to discharge from GI standpoint. -We will need to clarify if okay to resume Eliquis and ASA once permacath is placed. Heel wound Seems chronic. Wound care nurse consult appreciated. - dressing changes per wound care. DVT prophylaxis-SCDs Discussed Condition With: Discussed with patient and RN. Discharge Planning: Per case management's last note dated 02/13 [facility] declined patient for admission. CM will continue to follow up for LTC placement and outpatient HD.
--- NOTE | 2018-02-18 12:07 | P.PNNP ---
Subjective Interval history: Patient seen , alert, no SOB, eating well. Physical Exam Vital signs: Vital Signs 02/17/18 16:00 02/17/18 19:16 02/17/18 23:11 Temperature 98.6 F 98.2 F 98.7 F Pulse Rate 105 H 101 H 102 H Respiratory Rate 18 18 18 Blood Pressure 145/75 H 135/80 167/99 H Pulse Oximetry 97 98 97 02/18/18 01:48 02/18/18 03:45 02/18/18 04:10 Temperature 98.4 F Pulse Rate 92 H Respiratory Rate 18 Blood Pressure 130/82 Pulse Oximetry 97 02/18/18 08:00 Temperature 98.0 F Pulse Rate 92 H Respiratory Rate 16 Blood Pressure 106/58 L Pulse Oximetry 96 Intake & Output 02/17/18 02/18/18 02/18/18 18:59 06:59 18:59 Intake Total 1000 / 1000 480 / 480 Output Total 3400 / 3400 Balance -2400 / -2400 480 / 480 Weight 68 kg Intake: Oral 1000 / 1000 480 / 480 Output: Urine 1400 / 1400 Hemodialysis Amount 1999 / 1999 Other: # Voids 2 480 Date of Last Bowel Movement 02/16/18 02/17/18 # Bowel Movements 1 0 Narrative: GENERAL: This is a well-nourished, well-developed male. SKIN: Warm and dry. Pale. HEENT: Normocephalic. Pupils equal round. Nose without bleeding. Airway patent. NECK: Trachea midline. CARDIOVASCULAR: Regular rate and rhythm without murmurs, gallops, or rubs. Right lower extremity AV fistula with positive bruit and thrill. RESPIRATORY: Clear to auscultation. Breath sounds equal bilaterally. No wheezes , rales, or rhonchi. GASTROINTESTINAL: Abdomen soft, diffuse tenderness, + bowel sounds MUSCULOSKELETAL: Extremities without clubbing, cyanosis, or edema. NEUROLOGICAL: Awake and alert. Oriented to time, place, person. No focal neuro deficit. Moves all extremities. Normal speech. Assessment and Plan - Assessment (1) End stage renal disease on dialysis Code(s): N18.6 - End stage renal disease; Z99.2 - Dependence on renal dialysis Status: Acute - Plan Patient has End stage renal disease, on HD now TTS. AVF is not ready yet. Out Patient HD is being arranged. Also need placement. BP is stable, HD to continue MWF. Will need PermCath, Eliquis is on hold. AVF need more time for maturation. For placement and out patient HD arrangement. Has EGD and Colonoscopy done on 02/16., results noted. PermCath will be on Monday, as he has anesthesia done for GI procedure on 02/16. HD done yesterday, PermCath tomorrow. BS is labile. Awaiting placement.
[2018-02-19] MEDS: Morphine Inj 4 MG/ML Vial IV.PUSH PRN ×4 (00:32→21:07)
[2018-02-19] MEDS: Insulin Detemir Inj 1,000 UNIT/10 ML Vial SQ SCH (08:53)
[2018-02-19] MEDS: Topiramate 25 MG Tablet PO SCH (08:54)
[2018-02-19] MEDS: amLODIPine 5 MG Tablet PO SCH (08:55)
[2018-02-19] MEDS: Sertraline 100 MG Tablet PO SCH (08:55)
[2018-02-19] MEDS: hydrALAZINE 25 MG Tablet PO SCH ×3 (08:55→17:57)
[2018-02-19] MEDS: Loratadine 10 MG Tablet PO SCH (08:56)
[2018-02-19] MEDS: Pantoprazole Inj 40 MG Vial IV.PUSH SCH (08:56)
[2018-02-19] MEDS: Insulin NovoLOG Aspart Correctional Sugar Inj SQ SCH ×3 (09:23→17:56)
[2018-02-19] MEDS: Senna/Docusate Sodium 8.6/50 MG Tablet PO SCH ×2 (09:24→21:05)
[2018-02-19] MEDS ORDERED: Vancomycin Inj 1 GM/200 ML PIGGYBACK IV.SIG SCH (11:00)
--- NOTE | 2018-02-19 14:17 | P.PN ---
Subjective Interval history: Follow-up visit for diabetes mellitus type 1, HTN, DVT, CKD on HD. Nurse reports patient did not get permacath placement today as he ate this morning and was supposed to be n.p.o., blood sugars continue to fluctuate and patient has fluid at bedside and noncompliant with diabetic diet. Patient is seen and examined up in chair with visitors at bedside. He denies any fevers, chills, cough, shortness of breath, chest pain, nausea, vomiting or diarrhea. Discussed the importance of diabetic diet compliance, patient continues to state that at home he manages his diabetes by counting carbohydrates and administration of insulin pump. Noted chips, and outside food and patient's bedside table. Physical Exam Vital signs: Vital Signs 02/18/18 16:00 02/18/18 19:00 02/18/18 20:13 Temperature 36.4 C L 36.4 C L Pulse Rate 92 H 95 H Respiratory Rate 18 18 18 Blood Pressure 128/76 117/67 Pulse Oximetry 97 97 02/18/18 23:23 02/19/18 00:34 02/19/18 03:52 Temperature 36.9 C 36.7 C Pulse Rate 94 H 89 Respiratory Rate 18 18 18 Blood Pressure 110/61 126/62 Pulse Oximetry 97 95 02/19/18 05:39 02/19/18 08:58 Temperature Pulse Rate Respiratory Rate 18 16 Blood Pressure Pulse Oximetry Intake & Output 02/18/18 02/19/18 02/19/18 18:59 06:59 18:59 Intake Total 1200 / 1200 720 / 720 Output Total 1575 / 1575 1375 / 1375 Balance -375 / -375 -655 / -655 Weight 68 kg Intake: Oral 1200 / 1200 720 / 720 Other 0 / 0 Output: Urine 1575 / 1575 1375 / 1375 Other: Other Intake Source Saline Solution Date of Last Bowel Movement 02/17/18 02/18/18 # Bowel Movements 0 Narrative: GENERAL: This is a well-nourished, well-developed male. SKIN: Warm and dry. Pale. HEENT: Normocephalic. Pupils equal round. Nose without bleeding. Airway patent. NECK: Trachea midline. CARDIOVASCULAR: Regular rate and rhythm without murmurs, gallops, or rubs. Right lower extremity AV fistula with positive bruit and thrill. RESPIRATORY: Clear to auscultation. Breath sounds equal bilaterally. No wheezes , rales, or rhonchi. GASTROINTESTINAL: Abdomen soft, diffuse tenderness, + bowel sounds MUSCULOSKELETAL: Extremities without clubbing, cyanosis, or edema. NEUROLOGICAL: Awake and alert. Oriented to time, place, person. No focal neuro deficit. Moves all extremities. Normal speech. Results - Labs CBC & Chem 7: 02/15/18 15:25 02/17/18 20:35 Laboratory Results - last 24 hr 02/18/18 02/18/18 02/18/18 17:18 19:40 23:55 POC Glucose 298 H 265 H 291 H 02/19/18 02/19/18 02/19/18 07:58 08:00 11:34 POC Glucose 503 H* 504 H* 282 H - Procedures RIGHT SIDE HD CATHETER PLACEMENT HD Assessment and Plan - Plan Severe metabolic acidosis/ DM Secondary to diabetic ketoacidosis/renal failure/diarrhea. S/p insulin drip. -Accu-Cheks with insulin sliding scale. -Brittle diabetic and noncompliant with diabetic diet. -Consult endocrinology for further recommendations and possibly starting insulin pump, greatly appreciate assistance. HCAP, resolved CXR 02/09 with persistent right infiltrate. - vancomycin and aztreonam started 02/08. -On room air with no respiratory complaints. Repeat chest x-ray 02/15 with no acute cardiopulmonary disease. -Discontinue antibiotics, encourage, incentive spirometry. LARS/CKD Nephrology following, greatly appreciate assistance -Fistula in place however not yet mature. Vas-Cath in place, will need permacath placement to be done Monday -HD T/Mon./Mon -avoid nephrotoxins. Hypokalemia Likely s/t decreased PO intake. - managed with dialysis. -s/p replacement, K 3.7 History of DVT -on low dose Eliquis, currently on hold secondary to permacath placement plans. HTN -Blood pressure fluctuates however stable. -Continue amlodipine 10 mg daily and as needed clonidine. Malignant medical noncompliance The pt says he has poor living conditions. - case management assistance appreciated. - PT eval. -Patient will most likely need custodial facility once discharged. Discussed with patient the possibility of discharging home. Anemia S/t above conditions. - follow CBC. Hematochezia -Episode 02/15, hold Eliquis and aspirin, H&H stable -Consult gastroenterology for evaluation and further recommendations. -Upper endoscopy and colonoscopy 02/16. Irregular Z line biopsies taken during upper EGD. Colonoscopy with multiple polyps one polyp flattened and large possibly the reason behind bleeding. Polyps were removed. -Recommendations to repeat colonoscopy in 3 months, okay to discharge from GI standpoint. -We will need to clarify if okay to resume Eliquis and ASA once permacath is placed. Heel wound Seems chronic. Wound care nurse consult appreciated. - dressing changes per wound care. DVT prophylaxis-SCDs Discussed Condition With: Patient, RN, insurance case manager. Discharge Planning: Per case management's last note dated 02/13 [facility] declined patient for admission. continues to establish hemodialysis center as well as attempting to find long-term care facility for patient. No additional benefits available for patient at this time, discussed with insurance case manager. Discussed with patient the possibility of discharging him home since he is medically stable, patient raises concern over inability to afford his bills as well as not having reliable roommates.
--- NOTE | 2018-02-19 14:54 | P.PNNP ---
Subjective Interval history: Seen in AM. Sitting up in chair, reports that blood sugar was in 500's this morning. <Jazlyn De Anda - Last Filed: 02/19/18 14:42> Physical Exam Vital signs: Vital Signs 02/18/18 16:00 02/18/18 19:00 02/18/18 20:13 Temperature 97.5 F L 97.5 F L Pulse Rate 92 H 95 H Respiratory Rate 18 18 18 Blood Pressure 128/76 117/67 Pulse Oximetry 97 97 02/18/18 23:23 02/19/18 00:34 02/19/18 03:52 Temperature 98.5 F 98.1 F Pulse Rate 94 H 89 Respiratory Rate 18 18 18 Blood Pressure 110/61 126/62 Pulse Oximetry 97 95 02/19/18 05:39 02/19/18 08:58 Temperature Pulse Rate Respiratory Rate 18 16 Blood Pressure Pulse Oximetry Intake & Output 02/18/18 02/19/18 02/19/18 18:59 06:59 18:59 Intake Total 1200 / 1200 720 / 720 Output Total 1575 / 1575 1375 / 1375 Balance -375 / -375 -655 / -655 Weight 68 kg Intake: Oral 1200 / 1200 720 / 720 Other 0 / 0 Output: Urine 1575 / 1575 1375 / 1375 Other: Other Intake Source Saline Solution Date of Last Bowel Movement 02/17/18 02/18/18 # Bowel Movements 0 - Constitutional no acute distress - Routine HEENT Exam Head: Present: normocephalic - Routine Neck Exam Present: supple. Absent: JVD - Routine Respiratory Exam Present: CTA bilaterally. Absent: rales, rhonchi, wheezes - Routine Cardiovascular Exam Present: RRR - Routine Abdominal Exam Present: soft, normoactive bowel sounds. Absent: tenderness - Routine Extremities Exam Present: AV fistula, vascular access. Absent: edema - Routine Skin Exam Present: dry, warm, wounds - Routine Neurological Exam Present: alert, oriented X3 - Routine Psychiatric Exam Present: cooperative <Jazlyn De Anda - Last Filed: 02/19/18 14:42> Vital signs: Vital Signs 02/19/18 16:00 02/19/18 20:15 02/20/18 00:14 Temperature 98.2 F 97.4 F L 97.7 F Pulse Rate 92 H 94 H 90 Respiratory Rate 16 18 18 Blood Pressure 148/91 H 138/78 137/80 Pulse Oximetry 97 98 02/20/18 07:34 02/20/18 08:00 Temperature 98.1 F Pulse Rate 91 H Respiratory Rate 16 Blood Pressure 149/88 H Pulse Oximetry 97 97 Intake & Output 02/19/18 02/20/18 02/20/18 18:59 06:59 18:59 Intake Total 0 / 0 Output Total 1250 / 1250 2500 / 2500 Balance -1250 / -1250 -2500 / -2500 Weight 68 kg Intake: Oral 0 / 0 Output: Urine 1250 / 1250 Hemodialysis Amount 2500 / 2500 Other: Date of Last Bowel Movement 02/19/18 02/19/18 # Bowel Movements 0 <Bay Gifford - Last Filed: 02/20/18 15:26> Assessment and Plan - Assessment (1) End stage renal disease on dialysis Code(s): N18.6 - End stage renal disease; Z99.2 - Dependence on renal dialysis Status: Acute Plan: Patient has End stage renal disease on HD now TTS. AVF is not ready yet, AVF need more time for maturation. Has EGD and Colonoscopy done on 02/16., results noted. PermCath planned for today, Eliquis is on hold. Continue Epogen with dialysis Hemodialysis planned for tomorrow will remove fluid as tolerated For placement and out patient HD arrangement in process (2) DKA, type 1 Code(s): E10.10 - Type 1 diabetes mellitus with ketoacidosis without coma Status: Acute Qualifiers: Diabetes mellitus complication detail: without coma Qualified Code(s): E10.10 - Type 1 diabetes mellitus with ketoacidosis without coma Plan: blood sugars continues to be labile On insulin (3) Anemia Code(s): D64.9 - Anemia, unspecified Status: Acute Plan: Hgb stable at 9.8 Epogen with dialysis <Jazlyn De Anda - Last Filed: 02/19/18 14:42> - Assessment (1) End stage renal disease on dialysis Code(s): N18.6 - End stage renal disease; Z99.2 - Dependence on renal dialysis Status: Acute (2) DKA, type 1 Code(s): E10.10 - Type 1 diabetes mellitus with ketoacidosis without coma Status: Acute Qualifiers: Diabetes mellitus complication detail: without coma Qualified Code(s): E10.10 - Type 1 diabetes mellitus with ketoacidosis without coma (3) Anemia Code(s): D64.9 - Anemia, unspecified Status: Acute - Attending Attestation Patient seen and examined, agree with above. For PermCath, HD again in AM. <Bay Gifford - Last Filed: 02/20/18 15:26>
--- NOTE | 2018-02-19 20:32 | P.PNEN ---
Subjective Interval history: Patient known to me. Chart reviewed full consult to follow. Physical Exam Vital signs: Vital Signs 02/18/18 23:23 02/19/18 00:34 02/19/18 03:52 Temperature 98.5 F 98.1 F Pulse Rate 94 H 89 Respiratory Rate 18 18 18 Blood Pressure 110/61 126/62 Pulse Oximetry 97 95 02/19/18 05:39 02/19/18 08:00 02/19/18 08:58 Temperature 97.5 F L Pulse Rate 114 H Respiratory Rate 18 18 16 Blood Pressure 168/94 H Pulse Oximetry 168 H 02/19/18 12:00 02/19/18 16:00 Temperature 97.9 F 98.2 F Pulse Rate 101 H 92 H Respiratory Rate 18 16 Blood Pressure 158/93 H 148/91 H Pulse Oximetry 98 Intake & Output 02/19/18 02/19/18 02/20/18 06:59 18:59 06:59 Intake Total 720 / 720 Output Total 1375 / 1375 Balance -655 / -655 Weight 68 kg Intake: Oral 720 / 720 Output: Urine 1375 / 1375 Other: Date of Last Bowel Movement 02/18/18 02/19/18 # Bowel Movements 0 Assessment and Plan - Assessment (1) Type 1 diabetes mellitus with hyperglycemia Code(s): E10.65 - Type 1 diabetes mellitus with hyperglycemia Status: Acute Plan: Patient has insulin pump and supplies with him. Currently only needs a tripple A battery. Recommend to restart patient on Insulin pump. Will follow. Full consult to follow. Orders written.
[2018-02-20] MEDS: Morphine Inj 4 MG/ML Vial IV.PUSH PRN ×3 (01:24→20:25)
[2018-02-20 07:54] LABS: Carbon Dioxide 21.8 meq/L (21.0-32.0); Phosphorus 5.6 mg/dL (2.5-4.9)
[2018-02-20 07:58] LABS: Calcium 7.3 mg/dL (8.5-10.1)
[2018-02-20] MEDS: Loratadine 10 MG Tablet PO SCH (09:49)
[2018-02-20] MEDS: amLODIPine 5 MG Tablet PO SCH (09:49)
[2018-02-20] MEDS: hydrALAZINE 25 MG Tablet PO SCH ×3 (09:49→18:38)
[2018-02-20] MEDS: Sertraline 100 MG Tablet PO SCH (09:50)
[2018-02-20] MEDS: Pantoprazole Inj 40 MG Vial IV.PUSH SCH (09:50)
[2018-02-20] MEDS: Topiramate 25 MG Tablet PO SCH (09:50)
[2018-02-20] MEDS: Senna/Docusate Sodium 8.6/50 MG Tablet PO SCH ×2 (09:50→20:25)
--- NOTE | 2018-02-20 13:43 | P.PNNP ---
Subjective Interval history: Seen during hemodialysis. Permacath placement planned for today. No complaints. <Jazlyn De Anda - Last Filed: 02/20/18 13:38> Physical Exam Vital signs: Vital Signs 02/19/18 16:00 02/19/18 20:15 02/20/18 00:14 Temperature 98.2 F 97.4 F L 97.7 F Pulse Rate 92 H 94 H 90 Respiratory Rate 16 18 18 Blood Pressure 148/91 H 138/78 137/80 Pulse Oximetry 97 98 02/20/18 07:34 Temperature Pulse Rate Respiratory Rate Blood Pressure Pulse Oximetry 97 Intake & Output 02/19/18 02/20/18 02/20/18 18:59 06:59 18:59 Intake Total 0 / 0 Output Total 1250 / 1250 Balance -1250 / -1250 Weight 68 kg Intake: Oral 0 / 0 Output: Urine 1250 / 1250 Other: Date of Last Bowel Movement 02/19/18 02/19/18 # Bowel Movements 0 - Constitutional no acute distress - Routine HEENT Exam Head: Present: normocephalic ENT: Present: mucous membranes moist - Routine Neck Exam Present: supple. Absent: JVD - Routine Respiratory Exam Present: CTA bilaterally. Absent: rales, rhonchi, wheezes - Routine Cardiovascular Exam Present: RRR - Routine Abdominal Exam Present: soft, normoactive bowel sounds. Absent: tenderness - Routine Extremities Exam Present: AV fistula, vascular access. Absent: edema - Routine Skin Exam Present: dry, warm - Routine Neurological Exam Present: alert, oriented X3 - Routine Psychiatric Exam Present: cooperative <Jalzyn De Anda - Last Filed: 02/20/18 13:38> Vital signs: Vital Signs 02/19/18 20:15 02/20/18 00:14 02/20/18 07:34 Temperature 97.4 F L 97.7 F Pulse Rate 94 H 90 Respiratory Rate 18 18 Blood Pressure 138/78 137/80 Pulse Oximetry 97 98 97 02/20/18 08:00 02/20/18 14:50 02/20/18 15:05 Temperature 98.1 F 98.4 F Pulse Rate 91 H 100 H 95 H Respiratory Rate 16 18 18 Blood Pressure 149/88 H 146/93 H 133/83 Pulse Oximetry 97 94 L 95 02/20/18 15:35 Temperature Pulse Rate 98 H Respiratory Rate 18 Blood Pressure 138/88 Pulse Oximetry 97 Intake & Output 02/19/18 02/20/18 02/20/18 18:59 06:59 18:59 Intake Total 0 / 0 Output Total 1250 / 1250 2500 / 2500 Balance -1250 / -1250 -2500 / -2500 Weight 68 kg Intake: Oral 0 / 0 Output: Urine 1250 / 1250 Hemodialysis Amount 2500 / 2500 Other: Date of Last Bowel Movement 02/19/18 02/19/18 # Bowel Movements 0 <Bay Gifford - Last Filed: 02/20/18 18:08> Assessment and Plan - Assessment (1) End stage renal disease on dialysis Code(s): N18.6 - End stage renal disease; Z99.2 - Dependence on renal dialysis Status: Acute Plan: Patient has End stage renal disease on HD now TTS. AVF is not ready yet, AVF need more time for maturation. Has EGD and Colonoscopy done on 02/16., results noted. PermCath planned for today, Rupalis is on hold. Continue Epogen with dialysis Hypocalcemia will add Calcitrol daily. 3gms/L Ca with dialysis Seen during hemodialysis will remove fluid as tolerated For placement and out patient HD arrangement in process (2) DKA, type 1 Code(s): E10.10 - Type 1 diabetes mellitus with ketoacidosis without coma Status: Acute Qualifiers: Diabetes mellitus complication detail: without coma Qualified Code(s): E10.10 - Type 1 diabetes mellitus with ketoacidosis without coma Plan: Insulin pump has been restarted, seen by endocrinology (3) Anemia Code(s): D64.9 - Anemia, unspecified Status: Acute Plan: Hgb stable Epogen with dialysis <Jazlyn De Anda - Last Filed: 02/20/18 13:38> - Assessment (1) End stage renal disease on dialysis Code(s): N18.6 - End stage renal disease; Z99.2 - Dependence on renal dialysis Status: Acute Plan: Patient seen and examined, agree with above. For PermCath, and out patient HD arrangement and placement. (2) DKA, type 1 Code(s): E10.10 - Type 1 diabetes mellitus with ketoacidosis without coma Status: Acute Qualifiers: Diabetes mellitus complication detail: without coma Qualified Code(s): E10.10 - Type 1 diabetes mellitus with ketoacidosis without coma (3) Anemia Code(s): D64.9 - Anemia, unspecified Status: Acute <Bay Gifford - Last Filed: 02/20/18 18:08>
[2018-02-20] MEDS ORDERED: fentaNYL Citrate Inj 250 MCG/5 ML Ampul ONE (13:55)
[2018-02-20] MEDS ORDERED: Lidocaine 1%/Epinephrine 1:100,000 Inj 30 ML Vial ONE (14:04)
[2018-02-20] MEDS ORDERED: *Heparin 10,000 UNITS/10 ML Vial Periprocedural ONLY ONE (14:04)
--- NOTE | 2018-02-20 14:41 | P.RAD ---
Post Procedure Progress Note - Pre Procedure Diagnosis (1) Chronic kidney disease, stage 4, severely decreased GFR - Post Procedure Diagnosis (1) Chronic kidney disease, stage 4, severely decreased GFR - Procedure Information Procedure Date: 02/20/18 Supervising Radiologist: Dom Peralta MD Estimated blood loss (mL): 3 - Plan of Activity Patient to Unit: Nursing Unit Patient Condition: Fair Additional Comments: Left IJ PermCath placed without difficulty. Catheter in good position OK for use Full dictated report to follow See PACS Report for procedural detail/treatment.
[2018-02-20] MEDS: Heparin 10,000 UNITS/10 ML Vial (for IV use) OTHER PRN (15:08)
--- NOTE | 2018-02-20 16:04 | IR ---
EXAM DATE: 02/20/2018 3:08 PM EDT AGE/SEX: 37 years / Male INDICATIONS: Patient with history of chronic renal disease in need of tunneled dialysis catheter [employer] [employer]. CLINICAL DATA: This is the patient's subsequent encounter. Patient reports that signs and symptoms h ave been present for 1 month and indicates a pain score of 6/10. MEDICAL/SURGICAL HISTORY: Diabetes. Hypertension. Chronic anemia, PVD, DVT, Chronic kidney dis ease, Diabetic retinopathy, Diabetic ketoacidosis Right AV Fistula, Dialysis catheter COMPARISON: No prior exams available for comparison. FLUORO TIME (min): 1.8 IMAGE SERIES: 1 ACCESS SITE: SEDATION TIME (min): 30 MEDICATION(S): 3mg midazolam (Versed) IV 150mcg fentanyl (Sublimaze) IV Prophylactic antibiotics were administered with appropriate pre-procedure timing. Vancomycin within 2 hrs of procedure, Ancef (or alternative) within 1 hr of procedure. DEVICE(S): [id number] Permacath . . PROCEDURE: 1. Ultrasound-guided venipuncture. 2. PermaCath placement. 3. Conscious sedation with continuous EKG and oximetry monitoring. The risks, benefits and alternatives to the procedure were explained and verbal and written consent w as obtained. The site was prepped in sterile fashion. Full sterile technique was used, including ca p, mask, sterile gloves and gown and a large sterile sheet. Hand hygiene and 2% chlorhexidine and/or betadine/alcohol prep was utilized per protocol for cutaneous antisepsis. Sterile gel and sterile p robe cover were utilized for ultrasound guidance. The skin and subcutaneous tissues were infiltrated with local anesthetic solution. With ultrasound and fluoroscopic guidance a dermatotomy was created over the prescribed vein. A micr opuncture set was used to access the targeted vein and serial dilatation was performed to accept the prescribed length catheter. A subcutaneous tunnel was created in a retrograde fashion the catheter w as pulled through the tunnel. The catheter was flushed and assembled and locked with heparin. The c atheter was sutured in place. Conscious sedation was performed with the prescribed dosages and duration as above in the presence of an independent trained radiology nurse to assist in the monitoring of the patient. EKG and oximetry remained stable throughout the procedure. The patient tolerated the procedure well and there were n o complications. The patient was sent to post anesthesia recovery in stable condition. CONCLUSION: 1. Uncomplicated PermaCath placement as above. Electronically signed by: Dom Peralta MD 02/20/2018 4:03 PM EDT
--- NOTE | 2018-02-20 17:19 | P.PNIM ---
Subjective Interval history: The patient was in pain from his IV site. His IV was being removed by nursing. He requested standing Benadryl at night. He said that he was regulating his sugars with his insulin pump. He was receiving an amp of D50 for hypoglycemia. Discussed with nursing at the bedside. Physical Exam Vital signs: Vital Signs 02/19/18 20:15 02/20/18 00:14 02/20/18 07:34 Temperature 97.4 F L 97.7 F Pulse Rate 94 H 90 Respiratory Rate 18 18 Blood Pressure 138/78 137/80 Pulse Oximetry 97 98 97 02/20/18 08:00 02/20/18 14:50 02/20/18 15:05 Temperature 98.1 F 98.4 F Pulse Rate 91 H 100 H 95 H Respiratory Rate 16 18 18 Blood Pressure 149/88 H 146/93 H 133/83 Pulse Oximetry 97 94 L 95 02/20/18 15:35 Temperature Pulse Rate 98 H Respiratory Rate 18 Blood Pressure 138/88 Pulse Oximetry 97 Intake & Output 02/19/18 02/20/18 02/20/18 18:59 06:59 18:59 Intake Total 0 / 0 Output Total 1250 / 1250 2500 / 2500 Balance -1250 / -1250 -2500 / -2500 Weight 68 kg Intake: Oral 0 / 0 Output: Urine 1250 / 1250 Hemodialysis Amount 2500 / 2500 Other: Date of Last Bowel Movement 02/19/18 02/19/18 # Bowel Movements 0 Narrative: GENERAL: This is a well-nourished, well-developed male. SKIN: Warm and dry. Pale. HEENT: Normocephalic. Pupils equal round. Nose without bleeding. Airway patent. NECK: Trachea midline. CARDIOVASCULAR: Regular rate and rhythm without murmurs, gallops, or rubs. Right lower extremity AV fistula with positive bruit and thrill. RESPIRATORY: Clear to auscultation. Breath sounds equal bilaterally. No wheezes , rales, or rhonchi. GASTROINTESTINAL: Abdomen soft, diffuse tenderness, + bowel sounds MUSCULOSKELETAL: Extremities without clubbing, cyanosis, or edema. NEUROLOGICAL: Awake and alert. Oriented to time, place, person. No focal neuro deficit. Moves all extremities. Normal speech. Results - Labs CBC & Chem 7: 02/15/18 15:25 02/20/18 06:21 Laboratory Results - last 24 hr 02/19/18 02/20/18 02/20/18 19:52 06:21 07:38 Sodium 138 Potassium 4.0 Chloride 105 Carbon Dioxide 21.8 Anion Gap 11 BUN 53 H Creatinine 5.47 H Estimated GFR 12 L POC Glucose 296 H 233 H Random Glucose 216 H Calcium 7.3 L* Phosphorus 5.6 H Albumin 2.0 L - Imaging Impressions Central Venous Line 02/20/18 00:00 CONCLUSION: 1. Uncomplicated PermaCath placement as above. - Procedures RIGHT SIDE HD CATHETER PLACEMENT HD Assessment and Plan - Plan Severe metabolic acidosis/ DM Secondary to diabetic ketoacidosis/renal failure/diarrhea. S/p insulin drip. -Accu-Cheks with insulin sliding scale. -Brittle diabetic and noncompliant with diabetic diet. -Consulted endocrinology for further recommendations, greatly appreciate assistance. On home insulin pump. -treated for episode of hypoglycemia 02/20. HCAP, resolved CXR 02/09 with persistent right infiltrate. S/p vancomycin and aztreonam. Repeat chest x-ray 02/15 with no acute cardiopulmonary disease. - encourage ambulation, incentive spirometry. LARS/CKD Nephrology following, greatly appreciate assistance -Fistula in place however not yet mature. Permacath placed. -HD T/Betty./Sat -avoid nephrotoxins. Hypokalemia Likely s/t decreased PO intake. - managed with dialysis. History of DVT -on low dose Eliquis, currently on hold secondary to permacath placement. Will resume in AM. HTN -Blood pressure fluctuates however stable. -Continue amlodipine 10 mg daily and as needed clonidine. Malignant medical noncompliance The pt says he has poor living conditions. - case management assistance appreciated. - PT artemio. -Patient will most likely need shelter facility once discharged. Discussed with patient the possibility of discharging home. Anemia S/t above conditions. - follow CBC. Hematochezia -Episode 02/15, hold Eliquis and aspirin, H&H stable -Consult gastroenterology for evaluation and further recommendations. -Upper endoscopy and colonoscopy 02/16. Irregular Z line biopsies taken during upper EGD. Colonoscopy with multiple polyps one polyp flattened and large possibly the reason behind bleeding. Polyps were removed. -Recommendations to repeat colonoscopy in 3 months, okay to discharge from GI standpoint. -We will need to clarify if okay to resume Eliquis and ASA once Permacath is placed. Heel wound Seems chronic. Wound care nurse consult appreciated. - dressing changes per wound care. DVT prophylaxis-SCDs Discharge Planning: On IV antibiotics for HCAP, needs dialysis set-up and case management assistance with living situation
--- NOTE | 2018-02-20 18:50 | P.PNEN ---
Subjective Interval history: Patient had hypoglycemic event this afternoon. Had been NPO breakfast and lunch. Currently feeling well. Physical Exam Vital signs: Vital Signs 02/19/18 20:15 02/20/18 00:14 02/20/18 07:34 Temperature 97.4 F L 97.7 F Pulse Rate 94 H 90 Respiratory Rate 18 18 Blood Pressure 138/78 137/80 Pulse Oximetry 97 98 97 02/20/18 08:00 02/20/18 14:50 02/20/18 15:05 Temperature 98.1 F 98.4 F Pulse Rate 91 H 100 H 95 H Respiratory Rate 16 18 18 Blood Pressure 149/88 H 146/93 H 133/83 Pulse Oximetry 97 94 L 95 02/20/18 15:35 Temperature Pulse Rate 98 H Respiratory Rate 18 Blood Pressure 138/88 Pulse Oximetry 97 Intake & Output 02/19/18 02/20/18 02/20/18 18:59 06:59 18:59 Intake Total 0 / 0 Output Total 1250 / 1250 2500 / 2500 Balance -1250 / -1250 -2500 / -2500 Weight 68 kg Intake: Oral 0 / 0 Output: Urine 1250 / 1250 Hemodialysis Amount 2500 / 2500 Other: Date of Last Bowel Movement 02/19/18 02/19/18 # Bowel Movements 0 Assessment and Plan - Assessment (1) Type 1 diabetes mellitus with hyperglycemia Code(s): E10.65 - Type 1 diabetes mellitus with hyperglycemia Status: Acute Plan: Have reviewed pump setting. Have decreased basal rates by 0.05 units per hour which amounts to 7 - 8 %. Will follow. Pump changes made.
[2018-02-21] MEDS: Morphine Inj 4 MG/ML Vial IV.PUSH PRN ×4 (01:08→19:16)
[2018-02-21] MEDS: amLODIPine 5 MG Tablet PO SCH (08:38)
[2018-02-21] MEDS: Senna/Docusate Sodium 8.6/50 MG Tablet PO SCH ×2 (08:38→21:03)
[2018-02-21] MEDS: Loratadine 10 MG Tablet PO SCH (08:39)
[2018-02-21] MEDS: Sertraline 100 MG Tablet PO SCH (08:39)
[2018-02-21] MEDS: Calcitriol 0.25 MCG Capsule PO SCH (08:39)
[2018-02-21] MEDS: hydrALAZINE 25 MG Tablet PO SCH ×2 (08:41→12:40)
[2018-02-21] MEDS: Pantoprazole Inj 40 MG Vial IV.PUSH SCH (08:42)
[2018-02-21] MEDS: Topiramate 25 MG Tablet PO SCH (08:45)
[2018-02-21 12:32] LABS: Hematocrit 26.2 % (39.0-51.0); Mean Corpuscular HGB Conc 34.5 % (32.0-36.0); Mean Corpuscular Hemoglobin 30.4 pg (27.0-34.0); Mean Corpuscular Volume 88.3 fL (80.0-100.0); Mean Platelet Volume 7.4 fL (7.0-11.0); Platelet Count 282 th/mm3 (150-450); Red Blood Count 2.97 mil/mm3 (4.50-5.90); Red Cell Distribution Width 16.1 % (11.6-17.2); White Blood Count 5.8 th/mm3 (4.0-11.0)
[2018-02-21 13:07] LABS: Calcium 7.8 mg/dL (8.5-10.1); Carbon Dioxide 26.3 meq/L (21.0-32.0); Potassium 3.5 meq/L (3.5-5.1)
--- NOTE | 2018-02-21 17:04 | IR ---
EXAM DATE: 02/20/2018 3:01 PM EDT AGE/SEX: 37 years / Male INDICATIONS: Patient with history of chronic renal failure in need of non tunneled dialysis catheter removal. CLINICAL DATA: This is the patient's subsequent encounter. Patient reports that signs and symptoms h ave been present for 1 month and indicates a pain score of 6/10. MEDICAL/SURGICAL HISTORY: Diabetes. Hypertension. Chronic anemia, PVD, DVT, Chronic kidney dis ease, Diabetic retinopathy, Diabetic ketoacidosis Right AV Fistula, Dialysis catheter COMPARISON: No prior exams available for comparison. DEVICE(S): . . PROCEDURE: 1. Temporary central venous catheter removal. The prescribed catheter was removed intact and hemostasis was achieved with direct pressure. The sit e was dressed appropriately. The patient tolerated the procedure well. CONCLUSION: 1. Uncomplicated catheter removal. Electronically signed by: Dom Peralta MD 02/21/2018 5:02 PM EDT
--- NOTE | 2018-02-21 17:07 | P.PNNP ---
Subjective Interval history: Permacath placement yesterday, complaining of pain. Blood pressure elevated. <Jazlyn De Anda - Last Filed: 02/21/18 17:03> Physical Exam Vital signs: Vital Signs 02/20/18 20:00 02/21/18 00:00 02/21/18 03:10 Temperature 97.4 F L 98.3 F Pulse Rate 93 H 93 H Respiratory Rate 18 18 15 Blood Pressure 164/90 H 168/89 H Pulse Oximetry 98 96 02/21/18 04:00 02/21/18 08:00 02/21/18 12:00 Temperature 98.2 F 98.6 F 98.4 F Pulse Rate 92 H 92 H 86 Respiratory Rate 18 17 18 Blood Pressure 152/88 H 157/85 H 172/97 H Pulse Oximetry 97 96 98 02/21/18 16:00 Temperature 98.2 F Pulse Rate 92 H Respiratory Rate 17 Blood Pressure 156/92 H Pulse Oximetry 97 Intake & Output 02/20/18 02/21/18 02/21/18 18:59 06:59 18:59 Intake Total 920 / 920 Output Total 2500 / 2500 Balance -2500 / -2500 920 / 920 Weight 68 kg Intake: Oral 920 / 920 Output: Hemodialysis Amount 2500 / 2500 Other: # Voids 4 Date of Last Bowel Movement 02/20/18 02/20/18 <Jazlyn De Anda - Last Filed: 02/21/18 17:03> Vital signs: Vital Signs 02/20/18 20:00 02/21/18 00:00 02/21/18 03:10 Temperature 97.4 F L 98.3 F Pulse Rate 93 H 93 H Respiratory Rate 18 18 15 Blood Pressure 164/90 H 168/89 H Pulse Oximetry 98 96 02/21/18 04:00 02/21/18 08:00 02/21/18 12:00 Temperature 98.2 F 98.6 F 98.4 F Pulse Rate 92 H 92 H 86 Respiratory Rate 18 17 18 Blood Pressure 152/88 H 157/85 H 172/97 H Pulse Oximetry 97 96 98 02/21/18 16:00 Temperature 98.2 F Pulse Rate 92 H Respiratory Rate 17 Blood Pressure 156/92 H Pulse Oximetry 97 Intake & Output 02/20/18 02/21/18 02/21/18 18:59 06:59 18:59 Intake Total 920 / 920 Output Total 2500 / 2500 Balance -2500 / -2500 920 / 920 Weight 68 kg Intake: Oral 920 / 920 Output: Hemodialysis Amount 2500 / 2500 Other: # Voids 4 Date of Last Bowel Movement 02/20/18 02/20/18 <Bay Gifford - Last Filed: 02/21/18 18:26> Assessment and Plan - Assessment (1) End stage renal disease on dialysis Code(s): N18.6 - End stage renal disease; Z99.2 - Dependence on renal dialysis Status: Acute Plan: Patient has End stage renal disease on HD now TTS. AVF is not ready yet, AVF need more time for maturation. Has EGD and Colonoscopy done on 02/16., results noted. PermCath yesterday Continue Epogen with dialysis Hemodialysis tomorrow will remove fluid as tolerated Outpatient HD arranged/ [facility], 3:45pm chair time (2) DKA, type 1 Code(s): E10.10 - Type 1 diabetes mellitus with ketoacidosis without coma Status: Acute Qualifiers: Diabetes mellitus complication detail: without coma Qualified Code(s): E10.10 - Type 1 diabetes mellitus with ketoacidosis without coma Plan: Insulin pump has been restarted, seen by endocrinology (3) Anemia Code(s): D64.9 - Anemia, unspecified Status: Acute Plan: Hgb stable Epogen with dialysis (4) Hypertension Code(s): I10 - Essential (primary) hypertension Status: Acute Plan: Blood pressure elevated will increase hydralazine. <Jazlyn De Anda - Last Filed: 02/21/18 17:03> - Assessment (1) End stage renal disease on dialysis Code(s): N18.6 - End stage renal disease; Z99.2 - Dependence on renal dialysis Status: Acute Plan: Patient seen and examined, agree with above. Post PermCath, will resume Eliquis. (2) DKA, type 1 Code(s): E10.10 - Type 1 diabetes mellitus with ketoacidosis without coma Status: Acute Qualifiers: Diabetes mellitus complication detail: without coma Qualified Code(s): E10.10 - Type 1 diabetes mellitus with ketoacidosis without coma (3) Anemia Code(s): D64.9 - Anemia, unspecified Status: Acute (4) Hypertension Code(s): I10 - Essential (primary) hypertension Status: Acute <Bay Gifford - Last Filed: 02/21/18 18:26>
--- NOTE | 2018-02-21 17:15 | P.PNIM ---
Subjective Interval history: The patient said that he still had some pain but it was much better. He said his blood sugar has been better with the insulin pump. He had no acute complaints. Discussed with nursing. Physical Exam Vital signs: Vital Signs 02/20/18 20:00 02/21/18 00:00 02/21/18 03:10 Temperature 97.4 F L 98.3 F Pulse Rate 93 H 93 H Respiratory Rate 18 18 15 Blood Pressure 164/90 H 168/89 H Pulse Oximetry 98 96 02/21/18 04:00 02/21/18 08:00 02/21/18 12:00 Temperature 98.2 F 98.6 F 98.4 F Pulse Rate 92 H 92 H 86 Respiratory Rate 18 17 18 Blood Pressure 152/88 H 157/85 H 172/97 H Pulse Oximetry 97 96 98 02/21/18 16:00 Temperature 98.2 F Pulse Rate 92 H Respiratory Rate 17 Blood Pressure 156/92 H Pulse Oximetry 97 Intake & Output 02/20/18 02/21/18 02/21/18 18:59 06:59 18:59 Intake Total 920 / 920 Output Total 2500 / 2500 Balance -2500 / -2500 920 / 920 Weight 68 kg Intake: Oral 920 / 920 Output: Hemodialysis Amount 2500 / 2500 Other: # Voids 4 Date of Last Bowel Movement 02/20/18 02/20/18 Narrative: GENERAL: This is a well-nourished, well-developed male. SKIN: Warm and dry. Pale. HEENT: Normocephalic. Pupils equal round. Nose without bleeding. Airway patent. NECK: Trachea midline. CARDIOVASCULAR: Regular rate and rhythm without murmurs, gallops, or rubs. Right lower extremity AV fistula with positive bruit and thrill. RESPIRATORY: Clear to auscultation. Breath sounds equal bilaterally. No wheezes , rales, or rhonchi. GASTROINTESTINAL: Abdomen soft, diffuse tenderness, + bowel sounds MUSCULOSKELETAL: Extremities without clubbing, cyanosis, or edema. NEUROLOGICAL: Awake and alert. Oriented to time, place, person. No focal neuro deficit. Moves all extremities. Normal speech. Results - Labs CBC & Chem 7: 02/21/18 10:45 02/21/18 10:45 Laboratory Results - last 24 hr 07/31/18 07/31/18 07/31/18 16:35 16:36 16:50 WBC RBC Hgb Hct MCV MCH MCHC RDW Plt Count MPV Sodium Potassium Chloride Carbon Dioxide Anion Gap BUN Creatinine Estimated GFR POC Glucose 34 L* 36 L* 197 H Random Glucose Calcium 02/20/18 02/20/18 02/21/18 18:51 20:17 08:38 WBC RBC Hgb Hct MCV MCH MCHC RDW Plt Count MPV Sodium Potassium Chloride Carbon Dioxide Anion Gap BUN Creatinine Estimated GFR POC Glucose 105 152 H 100 Random Glucose Calcium 02/21/18 02/21/18 02/21/18 10:45 10:45 12:38 WBC 5.8 RBC 2.97 L Hgb 9.0 L Hct 26.2 L MCV 88.3 MCH 30.4 MCHC 34.5 RDW 16.1 Plt Count 282 MPV 7.4 Sodium 146 H Potassium 3.5 Chloride 110 H Carbon Dioxide 26.3 Anion Gap 10 BUN 31 H Creatinine 3.81 H Estimated GFR 18 L POC Glucose 213 H Random Glucose 71 L D Calcium 7.8 L 02/21/18 16:33 WBC RBC Hgb Hct MCV MCH MCHC RDW Plt Count MPV Sodium Potassium Chloride Carbon Dioxide Anion Gap BUN Creatinine Estimated GFR POC Glucose 188 H Random Glucose Calcium - Imaging Impressions Tube Removal 02/20/18 00:00 CONCLUSION: 1. Uncomplicated catheter removal. - Procedures RIGHT SIDE HD CATHETER PLACEMENT HD Assessment and Plan - Plan Severe metabolic acidosis/ DM Secondary to diabetic ketoacidosis/renal failure/diarrhea. S/p insulin drip. -Accu-Cheks with insulin sliding scale. -Brittle diabetic and noncompliant with diabetic diet. -Consulted endocrinology for further recommendations, greatly appreciate assistance. On home insulin pump. -treated for episode of hypoglycemia 02/20. Insulin pump was adjusted by endocrinology. HCAP, resolved CXR 02/09 with persistent right infiltrate. S/p vancomycin and aztreonam. Repeat chest x-ray 02/15 with no acute cardiopulmonary disease. - encourage ambulation, incentive spirometry. LARS/CKD Nephrology following, greatly appreciate assistance -Fistula in place however not yet mature. Permacath placed. -HD per nephrology. Outpatient chair time has been arranged. -avoid nephrotoxins. Hypokalemia Likely s/t decreased PO intake. - managed with dialysis. History of DVT -on low dose Eliquis. Resume when okay by GI. HTN -Blood pressure fluctuates however stable. -Continue amlodipine 10 mg daily and as needed clonidine. Malignant medical noncompliance The pt says he has poor living conditions. - case management assistance appreciated. - PT artemio. -Patient will most likely need custodial facility once discharged. Discussed with patient the possibility of discharging home. Anemia S/t above conditions. - follow CBC. Hematochezia -Episode 02/15, hold Eliquis and aspirin, H&H stable -Consult gastroenterology for evaluation and further recommendations. -Upper endoscopy and colonoscopy 02/16. Irregular Z line biopsies taken during upper EGD. Colonoscopy with multiple polyps one polyp flattened and large possibly the reason behind bleeding. Polyps were removed. -Recommendations to repeat colonoscopy in 3 months, okay to discharge from GI standpoint. -We will need to clarify if okay to resume Eliquis and ASA. Heel wound Seems chronic. Wound care nurse consult appreciated. - dressing changes per wound care. DVT prophylaxis-SCDs Discharge Planning: Needs dialysis set-up and case management assistance with living situation
[2018-02-21] MEDS: hydrALAZINE 50 MG Tablet PO SCH (19:16)
[2018-02-22] MEDS: Morphine Inj 4 MG/ML Vial IV.PUSH PRN ×4 (02:29→20:44)
[2018-02-22] MEDS: Sertraline 100 MG Tablet PO SCH (08:04)
[2018-02-22] MEDS: hydrALAZINE 50 MG Tablet PO SCH ×3 (08:04→17:33)
[2018-02-22] MEDS: Topiramate 25 MG Tablet PO SCH (08:04)
[2018-02-22] MEDS: amLODIPine 5 MG Tablet PO SCH (08:04)
[2018-02-22] MEDS: Senna/Docusate Sodium 8.6/50 MG Tablet PO SCH ×2 (08:04→20:47)
[2018-02-22] MEDS: Loratadine 10 MG Tablet PO SCH (08:04)
[2018-02-22] MEDS: Calcitriol 0.25 MCG Capsule PO SCH (08:04)
[2018-02-22] MEDS: Pantoprazole Inj 40 MG Vial IV.PUSH SCH (08:06)
--- NOTE | 2018-02-22 10:21 | P.PNNP ---
Subjective Interval history: Plan for hemodialysis today. No shortness or breath or edema. Blood sugars better controlled <Jazlyn De Anda - Last Filed: 02/22/18 10:12> Physical Exam Vital signs: Vital Signs 02/21/18 12:00 02/21/18 16:00 02/21/18 17:09 Temperature 98.4 F 98.2 F Pulse Rate 86 92 H Respiratory Rate 18 17 15 Blood Pressure 172/97 H 156/92 H Pulse Oximetry 98 97 02/21/18 19:18 02/21/18 22:00 02/22/18 00:00 Temperature 97.9 F 98.2 F Pulse Rate 102 H 93 H Respiratory Rate 18 18 18 Blood Pressure 150/76 H 148/78 H Pulse Oximetry 97 96 02/22/18 00:40 02/22/18 01:31 02/22/18 02:34 Temperature Pulse Rate Respiratory Rate 18 18 18 Blood Pressure Pulse Oximetry 02/22/18 05:44 02/22/18 06:34 02/22/18 08:00 Temperature 98.2 F 98.1 F Pulse Rate 99 H 92 H Respiratory Rate 18 18 18 Blood Pressure 158/98 H 155/96 H Pulse Oximetry 96 96 Intake & Output 02/21/18 02/22/18 02/22/18 18:59 06:59 18:59 Intake Total 960 / 960 Output Total 1999 Balance -1040 / -1040 Intake: Oral 960 / 960 Output: Urine 1999 Other: Date of Last Bowel Movement 02/20/18 02/21/18 <Jazlyn De Anda - Last Filed: 02/22/18 10:12> Vital signs: Vital Signs 02/21/18 19:18 02/21/18 22:00 02/22/18 00:00 Temperature 97.9 F 98.2 F Pulse Rate 102 H 93 H Respiratory Rate 18 18 18 Blood Pressure 150/76 H 148/78 H Pulse Oximetry 97 96 02/22/18 00:40 02/22/18 01:31 02/22/18 02:34 Temperature Pulse Rate Respiratory Rate 18 18 18 Blood Pressure Pulse Oximetry 02/22/18 05:44 02/22/18 06:34 02/22/18 08:00 Temperature 98.2 F 98.1 F Pulse Rate 99 H 92 H Respiratory Rate 18 18 18 Blood Pressure 158/98 H 155/96 H Pulse Oximetry 96 96 02/22/18 14:05 02/22/18 15:00 Temperature 98.5 F 98.4 F Pulse Rate 97 H 94 H Respiratory Rate 17 18 Blood Pressure 122/71 143/99 H Pulse Oximetry 98 96 Intake & Output 02/22/18 02/22/18 02/23/18 06:59 18:59 06:59 Intake Total 950 / 950 Output Total 3000 / 3000 Balance -2049 / -2049 Intake: Oral 950 / 950 Output: Urine 1000 / 1000 Hemodialysis Amount 1999 Other: Date of Last Bowel Movement 02/21/18 02/21/18 <Bay Gifford - Last Filed: 02/22/18 19:07> Assessment and Plan - Assessment (1) End stage renal disease on dialysis Code(s): N18.6 - End stage renal disease; Z99.2 - Dependence on renal dialysis Status: Acute Plan: Patient has End stage renal disease on HD now TTS. AVF is not ready yet, AVF need more time for maturation. Has EGD and Colonoscopy done on 02/16., results noted. PermCath 02/20 Continue Epogen with dialysis Hemodialysis today will remove fluid as tolerated. Outpatient HD arranged/ [facility], 3:45pm chair time (2) DKA, type 1 Code(s): E10.10 - Type 1 diabetes mellitus with ketoacidosis without coma Status: Acute Qualifiers: Diabetes mellitus complication detail: without coma Qualified Code(s): E10.10 - Type 1 diabetes mellitus with ketoacidosis without coma Plan: Insulin pump has been restarted, seen by endocrinology (3) Anemia Code(s): D64.9 - Anemia, unspecified Status: Acute Plan: Hgb stable Epogen with dialysis (4) Hypertension Code(s): I10 - Essential (primary) hypertension Status: Acute Plan: Blood pressure elevated will increase hydralazine. - Plan Patient has End stage renal disease, on HD now TTS. AVF is not ready yet. Out Patient HD is being arranged. Also need placement. BP is stable, HD to continue MWF. Will need PermCath, Eliquis is on hold. AVF need more time for maturation. For placement and out patient HD arrangement. Has EGD and Colonoscopy done on 02/16., results noted. PermCath will be on Monday, as he has anesthesia done for GI procedure on 02/16. HD done yesterday, PermCath tomorrow. BS is labile. Awaiting placement. <Jazlyn De Anda - Last Filed: 02/22/18 10:12> - Assessment (1) End stage renal disease on dialysis Code(s): N18.6 - End stage renal disease; Z99.2 - Dependence on renal dialysis Status: Acute (2) DKA, type 1 Code(s): E10.10 - Type 1 diabetes mellitus with ketoacidosis without coma Status: Acute Qualifiers: Diabetes mellitus complication detail: without coma Qualified Code(s): E10.10 - Type 1 diabetes mellitus with ketoacidosis without coma (3) Anemia Code(s): D64.9 - Anemia, unspecified Status: Acute (4) Hypertension Code(s): I10 - Essential (primary) hypertension Status: Acute - Attending Attestation Patient seen in AM during HD, and examine, agree with above. Awaiting placement, out patient HD is arranged at [facility]. <Bay Gifford - Last Filed: 02/22/18 19:07>
[2018-02-22] MEDS ORDERED: NOVOLOG INSULIN ASPART SQ PRN (11:15)
--- NOTE | 2018-02-22 18:07 | P.PNIM ---
Subjective Interval history: The patient stated that he still had no place to stay upon discharge. He said that he went to dialysis today. He was interested in resuming his Eliquis. He also wanted to resume Lyrica. Discussed with nursing. Physical Exam Vital signs: Vital Signs 02/21/18 19:18 02/21/18 22:00 02/22/18 00:00 Temperature 97.9 F 98.2 F Pulse Rate 102 H 93 H Respiratory Rate 18 18 18 Blood Pressure 150/76 H 148/78 H Pulse Oximetry 97 96 02/22/18 00:40 02/22/18 01:31 02/22/18 02:34 Temperature Pulse Rate Respiratory Rate 18 18 18 Blood Pressure Pulse Oximetry 02/22/18 05:44 02/22/18 06:34 02/22/18 08:00 Temperature 98.2 F 98.1 F Pulse Rate 99 H 92 H Respiratory Rate 18 18 18 Blood Pressure 158/98 H 155/96 H Pulse Oximetry 96 96 02/22/18 14:05 02/22/18 15:00 Temperature 98.5 F 98.4 F Pulse Rate 97 H 94 H Respiratory Rate 17 18 Blood Pressure 122/71 143/99 H Pulse Oximetry 98 96 Intake & Output 02/21/18 02/22/18 02/22/18 18:59 06:59 18:59 Intake Total 960 / 960 Output Total 1999 Balance -1040 / -1040 -1999 Intake: Oral 960 / 960 Output: Urine 1999 Hemodialysis Amount 1999 Other: Date of Last Bowel Movement 02/20/18 02/21/18 02/21/18 Narrative: GENERAL: This is a well-nourished, well-developed male. SKIN: Warm and dry. Pale. HEENT: Normocephalic. Pupils equal round. Nose without bleeding. Airway patent. NECK: Trachea midline. CARDIOVASCULAR: Regular rate and rhythm without murmurs, gallops, or rubs. Right lower extremity AV fistula with positive bruit and thrill. RESPIRATORY: Clear to auscultation. Breath sounds equal bilaterally. No wheezes , rales, or rhonchi. GASTROINTESTINAL: Abdomen soft, diffuse tenderness, + bowel sounds MUSCULOSKELETAL: Extremities without clubbing, cyanosis, or edema. NEUROLOGICAL: Awake and alert. Oriented to time, place, person. No focal neuro deficit. Moves all extremities. Normal speech. Results - Labs CBC & Chem 7: 02/21/18 10:45 02/21/18 10:45 Laboratory Results - last 24 hr 02/21/18 02/22/18 02/22/18 21:01 07:56 13:17 POC Glucose 194 H 161 H 89 02/22/18 17:32 POC Glucose 202 H - Procedures RIGHT SIDE HD CATHETER PLACEMENT HD Assessment and Plan - Plan Severe metabolic acidosis/ DM Secondary to diabetic ketoacidosis/renal failure/diarrhea. S/p insulin drip. -Accu-Cheks with insulin sliding scale. -Brittle diabetic and noncompliant with diabetic diet. -Consulted endocrinology for further recommendations, greatly appreciate assistance. On home insulin pump. -treated for episode of hypoglycemia 02/20. Insulin pump was adjusted by endocrinology. Improved. -resume Lyrica. HCAP, resolved CXR 02/09 with persistent right infiltrate. S/p vancomycin and aztreonam. Repeat chest x-ray 02/15 with no acute cardiopulmonary disease. - encourage ambulation, incentive spirometry. LARS/CKD Nephrology following, greatly appreciate assistance -Fistula in place however not yet mature. Permacath placed. -HD per nephrology. Outpatient chair time has been arranged. -avoid nephrotoxins. Hypokalemia Likely s/t decreased PO intake. - managed with dialysis. History of DVT -on low dose Eliquis. Resume 02/22. HTN -Blood pressure fluctuates however stable. -Continue amlodipine 10 mg daily and as needed clonidine. Malignant medical noncompliance The pt says he has poor living conditions. - case management assistance appreciated. - PT eval. -Patient will most likely need half-way facility once discharged. Discussed with patient the possibility of discharging home. Anemia S/t above conditions. - follow CBC. Hematochezia -Episode 02/15, hold Eliquis and aspirin, H&H stable -Consult gastroenterology for evaluation and further recommendations. -Upper endoscopy and colonoscopy 02/16. Irregular Z line biopsies taken during upper EGD. Colonoscopy with multiple polyps one polyp flattened and large possibly the reason behind bleeding. Polyps were removed. -Recommendations to repeat colonoscopy in 3 months, okay to discharge from GI standpoint. -monitor CBC while on Eliquis. Heel wound Seems chronic. Wound care nurse consult appreciated. - dressing changes per wound care. DVT prophylaxis-SCDs Discharge Planning: Needs dialysis set-up and case management assistance with living situation
[2018-02-23] MEDS: Morphine Inj 4 MG/ML Vial IV.PUSH PRN ×4 (01:47→16:39)
[2018-02-23 06:09] LABS: Baso # (Auto) 0.1 th/mm3 (0.0-0.2); Baso % (Auto) 1.4 % (0.0-2.0); Eos # (Auto) 0.2 th/mm3 (0.0-0.4); Hematocrit 28.8 % (39.0-51.0); Hemoglobin 9.5 gm/dL (13.0-17.0); Lymph # (Auto) 1.7 th/mm3 (1.0-4.8); Lymph % (Auto) 30.3 % (9.0-44.0); Mean Corpuscular HGB Conc 32.9 % (32.0-36.0); Mean Corpuscular Hemoglobin 28.6 pg (27.0-34.0); Mean Corpuscular Volume 86.9 fL (80.0-100.0); Mono # (Auto) 0.5 th/mm3 (0.0-0.9); Mono % (Auto) 8.9 % (0.0-8.0); Neut # (Auto) 3.1 th/mm3 (1.8-7.7); Neut % (Auto) 56.4 % (16.0-70.0); Platelet Count 262 th/mm3 (150-450); Red Blood Count 3.31 mil/mm3 (4.50-5.90); White Blood Count 5.5 th/mm3 (4.0-11.0)
[2018-02-23 06:37] LABS: Calcium 7.9 mg/dL (8.5-10.1); Carbon Dioxide 23.9 meq/L (21.0-32.0); Potassium 3.8 meq/L (3.5-5.1)
[2018-02-23] MEDS: Loratadine 10 MG Tablet PO SCH (08:10)
[2018-02-23] MEDS: hydrALAZINE 50 MG Tablet PO SCH ×3 (08:10→17:14)
[2018-02-23] MEDS: Topiramate 25 MG Tablet PO SCH (08:10)
[2018-02-23] MEDS: Pantoprazole Inj 40 MG Vial IV.PUSH SCH (08:10)
[2018-02-23] MEDS: Senna/Docusate Sodium 8.6/50 MG Tablet PO SCH ×3 (08:10→20:36)
[2018-02-23] MEDS: Sertraline 100 MG Tablet PO SCH (08:10)
[2018-02-23] MEDS: amLODIPine 5 MG Tablet PO SCH (08:10)
[2018-02-23] MEDS: Calcitriol 0.25 MCG Capsule PO SCH (08:10)
[2018-02-23] MEDS: Dextrose 50% in Water 50 ML Vial IV.PUSH PRN (09:55)
--- NOTE | 2018-02-23 11:44 | P.PNNP ---
Subjective Interval history: No complaints. Blood sugar low this morning on insulin pump, patient bolused this morning accidently when priming insulin pump. <JesseJazlyn ramirez - Last Filed: 02/23/18 11:38> Physical Exam Vital signs: Vital Signs 02/22/18 14:05 02/22/18 15:00 02/22/18 20:00 Temperature 98.5 F 98.4 F 97.8 F Pulse Rate 97 H 94 H 97 H Respiratory Rate 17 18 18 Blood Pressure 122/71 143/99 H 151/90 H Pulse Oximetry 98 96 94 L 02/22/18 20:51 02/23/18 00:00 02/23/18 01:47 Temperature 98.0 F Pulse Rate 92 H Respiratory Rate 18 17 18 Blood Pressure 159/94 H Pulse Oximetry 97 02/23/18 01:49 02/23/18 04:00 02/23/18 07:35 Temperature 98.1 F Pulse Rate 97 H Respiratory Rate 18 18 18 Blood Pressure 162/95 H Pulse Oximetry 96 02/23/18 08:00 Temperature 97.6 F Pulse Rate 96 H Respiratory Rate 18 Blood Pressure 152/94 H Pulse Oximetry 97 Intake & Output 02/22/18 02/23/18 02/23/18 18:59 06:59 18:59 Intake Total 950 / 950 Output Total 3000 / 3000 1889 Balance -2049 / -2049 -1889 / -1889 Weight 68 kg Intake: Oral 950 / 950 Output: Urine 1000 / 1000 1889 Hemodialysis Amount 1999 Other: Date of Last Bowel Movement 02/21/18 02/21/18 02/22/18 Narrative: GENERAL: This is a well-nourished, well-developed male. SKIN: Warm and dry. Pale. Permacath. HEENT: Normocephalic. Pupils equal round. Nose without bleeding. Airway patent. NECK: Trachea midline. CARDIOVASCULAR: Regular rate and rhythm without murmurs, gallops, or rubs. Right lower extremity AV fistula with positive bruit and thrill. RESPIRATORY: Clear to auscultation. Breath sounds equal bilaterally. No wheezes , rales, or rhonchi. GASTROINTESTINAL: Abdomen soft, diffuse tenderness, + bowel sounds MUSCULOSKELETAL: Extremities without clubbing, cyanosis, or edema. NEUROLOGICAL: Awake and alert. Oriented to time, place, person. No focal neuro deficit. Moves all extremities. Normal speech. <Jazlyn De Anda - Last Filed: 02/23/18 11:38> Vital signs: Vital Signs 02/23/18 11:56 02/23/18 12:00 02/23/18 16:00 Temperature 97.2 F L 98.4 F Pulse Rate 98 H 80 Respiratory Rate 18 18 18 Blood Pressure 139/86 130/84 Pulse Oximetry 98 97 02/23/18 16:41 02/23/18 19:53 02/23/18 21:59 Temperature 97.8 F Pulse Rate 100 H Respiratory Rate 18 18 17 Blood Pressure 147/85 H Pulse Oximetry 96 02/24/18 00:00 02/24/18 00:03 02/24/18 04:00 Temperature 98.0 F 97.9 F Pulse Rate 93 H 107 H Respiratory Rate 17 16 18 Blood Pressure 134/77 136/84 Pulse Oximetry 96 96 02/24/18 04:04 02/24/18 08:00 Temperature 98.2 F Pulse Rate 101 H Respiratory Rate 18 18 Blood Pressure 160/86 H Pulse Oximetry 97 Intake & Output 02/23/18 02/24/18 02/24/18 18:59 06:59 18:59 Weight 68 kg Other: # Voids 2 Date of Last Bowel Movement 02/22/18 02/23/18 02/23/18 <Bay Gifford - Last Filed: 02/24/18 09:28> Assessment and Plan - Assessment (1) End stage renal disease on dialysis Code(s): N18.6 - End stage renal disease; Z99.2 - Dependence on renal dialysis Status: Acute Plan: Patient has End stage renal disease on HD now TTS. AVF is not ready yet, AVF need more time for maturation. Has EGD and Colonoscopy done on 02/16., results noted. PermCath 02/20 Continue Epogen with dialysis Hemodialysis yesterday with removal of 2 liters Next hemodialysis planned for tomorrow Outpatient HD han/ [facility], 3:45pm chair time (2) DKA, type 1 Code(s): E10.10 - Type 1 diabetes mellitus with ketoacidosis without coma Status: Acute Qualifiers: Diabetes mellitus complication detail: without coma Qualified Code(s): E10.10 - Type 1 diabetes mellitus with ketoacidosis without coma Plan: Insulin pump, seen by endocrinology (3) Anemia Code(s): D64.9 - Anemia, unspecified Status: Acute Plan: Hgb stable Epogen with dialysis (4) Hypertension Code(s): I10 - Essential (primary) hypertension Status: Acute Plan: Blood pressure labile hydralazine increased yesterday - Plan . <Jazlyn De Anda - Last Filed: 02/23/18 11:38> - Assessment (1) End stage renal disease on dialysis Code(s): N18.6 - End stage renal disease; Z99.2 - Dependence on renal dialysis Status: Acute (2) DKA, type 1 Code(s): E10.10 - Type 1 diabetes mellitus with ketoacidosis without coma Status: Acute Qualifiers: Diabetes mellitus complication detail: without coma Qualified Code(s): E10.10 - Type 1 diabetes mellitus with ketoacidosis without coma (3) Anemia Code(s): D64.9 - Anemia, unspecified Status: Acute (4) Hypertension Code(s): I10 - Essential (primary) hypertension Status: Acute - Attending Attestation Patient seen and examine, agree with above. HD to continue TTS. BP is stable, BS labile. Arrangements for placement in progress. <Bay Gifford - Last Filed: 02/24/18 09:28>
--- NOTE | 2018-02-23 17:15 | P.PNIM ---
Subjective Interval history: The patient stated he accidentally gave himself too much insulin earlier and had his insulin pump off after. He requested a change in pain medication to Percocet. Discussed with nursing at the bedside. Physical Exam Vital signs: Vital Signs 02/22/18 20:00 02/22/18 20:51 02/23/18 00:00 Temperature 97.8 F 98.0 F Pulse Rate 97 H 92 H Respiratory Rate 18 18 17 Blood Pressure 151/90 H 159/94 H Pulse Oximetry 94 L 97 02/23/18 01:47 02/23/18 01:49 02/23/18 04:00 Temperature 98.1 F Pulse Rate 97 H Respiratory Rate 18 18 18 Blood Pressure 162/95 H Pulse Oximetry 96 02/23/18 07:35 02/23/18 08:00 02/23/18 11:56 Temperature 97.6 F Pulse Rate 96 H Respiratory Rate 18 18 18 Blood Pressure 152/94 H Pulse Oximetry 97 02/23/18 12:00 02/23/18 16:41 Temperature 97.2 F L Pulse Rate 98 H Respiratory Rate 18 18 Blood Pressure 139/86 Pulse Oximetry 98 Intake & Output 02/22/18 02/23/18 02/23/18 18:59 06:59 18:59 Intake Total 950 / 950 Output Total 3000 / 3000 1889 Balance -2049 / -2049 -1889 / -1889 Weight 68 kg Intake: Oral 950 / 950 Output: Urine 1000 / 1000 1889 Hemodialysis Amount 1999 Other: Date of Last Bowel Movement 02/21/18 02/21/18 02/22/18 Narrative: GENERAL: This is a well-nourished, well-developed male. SKIN: Warm and dry. Pale. Permacath. HEENT: Normocephalic. Pupils equal round. Nose without bleeding. Airway patent. NECK: Trachea midline. CARDIOVASCULAR: Regular rate and rhythm without murmurs, gallops, or rubs. Right lower extremity AV fistula with positive bruit and thrill. RESPIRATORY: Clear to auscultation. Breath sounds equal bilaterally. No wheezes , rales, or rhonchi. GASTROINTESTINAL: Abdomen soft, diffuse tenderness, + bowel sounds MUSCULOSKELETAL: Extremities without clubbing, cyanosis, or edema. NEUROLOGICAL: Awake and alert. Oriented to time, place, person. No focal neuro deficit. Moves all extremities. Normal speech. Results - Labs CBC & Chem 7: 02/23/18 05:50 02/23/18 05:50 Laboratory Results - last 24 hr 02/22/18 02/22/18 02/23/18 17:32 20:43 05:50 WBC 5.5 RBC 3.31 L Hgb 9.5 L Hct 28.8 L MCV 86.9 MCH 28.6 MCHC 32.9 RDW 16.0 Plt Count 262 MPV 7.0 Neut % (Auto) 56.4 Lymph % (Auto) 30.3 [place] % (Auto) 8.9 H Eos % (Auto) 3.0 Baso % (Auto) 1.4 Neut # (Auto) 3.1 Lymph # (Auto) 1.7 [place] # (Auto) 0.5 Eos # (Auto) 0.2 Baso # (Auto) 0.1 WBC Differential . Differential Comment Auto diff final Sodium Potassium Chloride Carbon Dioxide Anion Gap BUN Creatinine Estimated GFR POC Glucose 202 H 112 H Random Glucose Calcium 02/23/18 02/23/18 02/23/18 05:50 07:16 09:07 WBC RBC Hgb Hct MCV MCH MCHC RDW Plt Count MPV Neut % (Auto) Lymph % (Auto) [place] % (Auto) Eos % (Auto) Baso % (Auto) Neut # (Auto) Lymph # (Auto) [place] # (Auto) Eos # (Auto) Baso # (Auto) WBC Differential Differential Comment Sodium 133 L D Potassium 3.8 Chloride 99 D Carbon Dioxide 23.9 Anion Gap 10 BUN 37 H Creatinine 4.37 H Estimated GFR 16 L POC Glucose 223 H 40 L* Random Glucose 242 H D Calcium 7.9 L 02/23/18 02/23/18 02/23/18 09:20 09:50 09:59 WBC RBC Hgb Hct MCV MCH MCHC RDW Plt Count MPV Neut % (Auto) Lymph % (Auto) [place] % (Auto) Eos % (Auto) Baso % (Auto) Neut # (Auto) Lymph # (Auto) [place] # (Auto) Eos # (Auto) Baso # (Auto) WBC Differential Differential Comment Sodium Potassium Chloride Carbon Dioxide Anion Gap BUN Creatinine Estimated GFR POC Glucose 38 L* 55 L 131 H Random Glucose Calcium 02/23/18 02/23/18 11:50 16:41 WBC RBC Hgb Hct MCV MCH MCHC RDW Plt Count MPV Neut % (Auto) Lymph % (Auto) [place] % (Auto) Eos % (Auto) Baso % (Auto) Neut # (Auto) Lymph # (Auto) [place] # (Auto) Eos # (Auto) Baso # (Auto) WBC Differential Differential Comment Sodium Potassium Chloride Carbon Dioxide Anion Gap BUN Creatinine Estimated GFR POC Glucose 67 L 467 H* Random Glucose Calcium - Procedures RIGHT SIDE HD CATHETER PLACEMENT HD Assessment and Plan - Plan Severe metabolic acidosis/ DM Secondary to diabetic ketoacidosis/renal failure/diarrhea. S/p insulin drip. -Accu-Cheks with insulin sliding scale. -Brittle diabetic and noncompliant with diabetic diet. -Consulted endocrinology for further recommendations, greatly appreciate assistance. On home insulin pump. -treated for episode of hypoglycemia 02/23. Insulin pump per endocrinology. -resume Lyrica. HCAP, resolved CXR 02/09 with persistent right infiltrate. S/p vancomycin and aztreonam. Repeat chest x-ray 02/15 with no acute cardiopulmonary disease. - encourage ambulation, incentive spirometry. LARS/CKD Nephrology following, greatly appreciate assistance -Fistula in place however not yet mature. Permacath placed. -HD per nephrology. Outpatient chair time has been arranged. -avoid nephrotoxins. Pain Pt complaining of pain at the Permacath site. -Percocet as needed. Hypokalemia Likely s/t decreased PO intake. - managed with dialysis. History of DVT -on low dose Eliquis. Resumed 02/22. HTN -Blood pressure fluctuates however stable. -Continue amlodipine 10 mg daily and as needed clonidine. Malignant medical noncompliance The pt says he has poor living conditions. -case management assistance appreciated. Difficult placement. -PT eval. Anemia S/t above conditions. - follow CBC. Hematochezia -Episode 02/15, hold Eliquis and aspirin, H&H stable -Consult gastroenterology for evaluation and further recommendations. -Upper endoscopy and colonoscopy 02/16. Irregular Z line biopsies taken during upper EGD. Colonoscopy with multiple polyps one polyp flattened and large possibly the reason behind bleeding. Polyps were removed. -Recommendations to repeat colonoscopy in 3 months, okay to discharge from GI standpoint. -monitor CBC while on Eliquis. Heel wound Seems chronic. Wound care nurse consult appreciated. -dressing changes per wound care. DVT prophylaxis-SCDs Discharge Planning: Case management assisting with living situation. Has outpt dialysis set-up. On an insulin pump.
[2018-02-23] MEDS: oxyCODONE/Acetaminophen 10/325 Tablet PO PRN (19:23)
[2018-02-24] MEDS: oxyCODONE/Acetaminophen 10/325 Tablet PO PRN ×3 (03:34→20:37)
[2018-02-24 07:16] LABS: Baso # (Auto) 0.1 th/mm3 (0.0-0.2); Baso % (Auto) 1.2 % (0.0-2.0); Eos # (Auto) 0.2 th/mm3 (0.0-0.4); Hematocrit 26.2 % (39.0-51.0); Lymph # (Auto) 1.5 th/mm3 (1.0-4.8); Lymph % (Auto) 27.1 % (9.0-44.0); Mean Corpuscular HGB Conc 34.3 % (32.0-36.0); Mean Corpuscular Hemoglobin 29.6 pg (27.0-34.0); Mean Corpuscular Volume 86.4 fL (80.0-100.0); Mean Platelet Volume 7.3 fL (7.0-11.0); Mono # (Auto) 0.4 th/mm3 (0.0-0.9); Neut # (Auto) 3.4 th/mm3 (1.8-7.7); Neut % (Auto) 61.7 % (16.0-70.0); Platelet Count 268 th/mm3 (150-450); Red Blood Count 3.04 mil/mm3 (4.50-5.90); Red Cell Distribution Width 15.6 % (11.6-17.2); White Blood Count 5.5 th/mm3 (4.0-11.0)
[2018-02-24 07:51] LABS: Calcium 7.7 mg/dL (8.5-10.1); Carbon Dioxide 20.6 meq/L (21.0-32.0); Potassium 3.4 meq/L (3.5-5.1)
--- NOTE | 2018-02-24 09:15 | P.PN ---
Subjective Interval history: Pt seen and examined for f/u of DKA and ESRD now on HD. BP somewhat improved. Seen after dialysis. No complaints. Denies CP, SOB, abdominal pain, N/V. Physical Exam Vital signs: Vital Signs 02/23/18 11:56 02/23/18 12:00 02/23/18 16:00 Temperature 97.2 F L 98.4 F Pulse Rate 98 H 80 Respiratory Rate 18 18 18 Blood Pressure 139/86 130/84 Pulse Oximetry 98 97 02/23/18 16:41 02/23/18 19:53 02/23/18 21:59 Temperature 97.8 F Pulse Rate 100 H Respiratory Rate 18 18 17 Blood Pressure 147/85 H Pulse Oximetry 96 02/24/18 00:00 02/24/18 00:03 02/24/18 04:00 Temperature 98.0 F 97.9 F Pulse Rate 93 H 107 H Respiratory Rate 17 16 18 Blood Pressure 134/77 136/84 Pulse Oximetry 96 96 02/24/18 04:04 02/24/18 08:00 Temperature 98.2 F Pulse Rate 101 H Respiratory Rate 18 18 Blood Pressure 160/86 H Pulse Oximetry 97 Intake & Output 02/23/18 02/24/18 02/24/18 18:59 06:59 18:59 Weight 68 kg Other: # Voids 2 Date of Last Bowel Movement 02/22/18 02/23/18 02/23/18 Narrative: GENERAL: m kaz resting in bed in NAD. SKIN: Warm and dry. CHEST: Vascath L chest, no surrounding erythema. HEART: RRR with 1/6 AL. LUNGS: CTAB without wheezes or crackles. ABDOMEN: +BS, soft, NT, ND. EXTREMITIES: No LE edema. NEURO: Awake and alert. Nonfocal. PSYCH: Appropriate mood and affect. Results - Labs CBC & Chem 7: 02/24/18 05:35 02/24/18 05:35 Laboratory Results - last 24 hr 02/23/18 02/23/18 02/23/18 09:07 09:20 09:50 WBC RBC Hgb Hct MCV MCH MCHC RDW Plt Count MPV Neut % (Auto) Lymph % (Auto) [place] % (Auto) Eos % (Auto) Baso % (Auto) Neut # (Auto) Lymph # (Auto) [place] # (Auto) Eos # (Auto) Baso # (Auto) WBC Differential Differential Comment Sodium Potassium Chloride Carbon Dioxide Anion Gap BUN Creatinine Estimated GFR POC Glucose 40 L* 38 L* 55 L Random Glucose Calcium 02/23/18 02/23/18 02/23/18 09:59 11:50 16:41 WBC RBC Hgb Hct MCV MCH MCHC RDW Plt Count MPV Neut % (Auto) Lymph % (Auto) [place] % (Auto) Eos % (Auto) Baso % (Auto) Neut # (Auto) Lymph # (Auto) [place] # (Auto) Eos # (Auto) Baso # (Auto) WBC Differential Differential Comment Sodium Potassium Chloride Carbon Dioxide Anion Gap BUN Creatinine Estimated GFR POC Glucose 131 H 67 L 467 H* Random Glucose Calcium 02/23/18 02/24/18 02/24/18 20:54 05:35 05:35 WBC 5.5 RBC 3.04 L Hgb 9.0 L Hct 26.2 L MCV 86.4 MCH 29.6 MCHC 34.3 RDW 15.6 Plt Count 268 MPV 7.3 Neut % (Auto) 61.7 Lymph % (Auto) 27.1 [place] % (Auto) 7.0 Eos % (Auto) 3.0 Baso % (Auto) 1.2 Neut # (Auto) 3.4 Lymph # (Auto) 1.5 [place] # (Auto) 0.4 Eos # (Auto) 0.2 Baso # (Auto) 0.1 WBC Differential . Differential Comment Auto diff final Sodium 126 L Potassium 3.4 L Chloride 92 L Carbon Dioxide 20.6 L Anion Gap 13 BUN 42 H Creatinine 4.39 H Estimated GFR 15 L POC Glucose 319 H Random Glucose 230 H Calcium 7.7 L 02/24/18 08:01 WBC RBC Hgb Hct MCV MCH MCHC RDW Plt Count MPV Neut % (Auto) Lymph % (Auto) [place] % (Auto) Eos % (Auto) Baso % (Auto) Neut # (Auto) Lymph # (Auto) [place] # (Auto) Eos # (Auto) Baso # (Auto) WBC Differential Differential Comment Sodium Potassium Chloride Carbon Dioxide Anion Gap BUN Creatinine Estimated GFR POC Glucose 370 H Random Glucose Calcium - Procedures RIGHT SIDE HD CATHETER PLACEMENT HD Assessment and Plan - Assessment (1) Diabetes type 1, uncontrolled Code(s): E10.65 - Type 1 diabetes mellitus with hyperglycemia Status: Acute (2) Hypertension Code(s): I10 - Essential (primary) hypertension Status: Chronic (3) End stage renal disease on dialysis Code(s): N18.6 - End stage renal disease; Z99.2 - Dependence on renal dialysis Status: Chronic (4) Anemia Code(s): D64.9 - Anemia, unspecified Status: Chronic - Plan 37 year old male with history of IDDM, HTN, DVT on Eliquis, 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 1. DKA - resolved - Patient is a brittle diabetic with dietary noncompliance - On admission, patient had ABG with pH 6.95, AG 33, and glucose 831 with associated Kussmaul breathing and renal failure - S/P insulin drip and DKA protocol - [employer] following, insulin pump adjusted 2. Type 1 DM - A1c 8.5 - Endocrinology following - Diabetic diet 3. HCAP - resolved - CXR 02/09 with persistent right infiltrate - S/p vancomycin and aztreonam - Repeat CXR 02/15 with no acute cardiopulmonary disease - Incentive spirometer 4. ESRD - Nephrology following, went for dialysis today - Fistula in place however not yet mature. Permacath placed 02/20 - Outpatient chair time has been arranged MWF - Avoid nephrotoxins - Percocet PRN for pain at Permacath site 5. Hematochezia - GI consulted - S/P EGD/colonoscopy on 02/16. EGD was normal except irregular Z line biopsy was done. Colonoscopy showed multiple polyps, 1 of them was flat and large which could be a reason for bleeding. S/P polypectomy - Recommendations to repeat colonoscopy in 3 months, okay to discharge from GI standpoint - Monitor CBC while on Eliquis 6. Hypokalemia, mild - Managed with HD 7. History of DVT - Continue Eliquis 8. HTN - Continue amlodipine - Clonidine PRN 9. Anemia - Iron studies suggest combination of anemia of chronic disease and iron deficiency - Hemodynamically stable - Continue to monitor - Epogen with dialysis 10. L Heel wound - Seems chronic. Wound care nurse consulted Cleanse left lateral heel wound with NS Q3D and PRN for saturation or dislodgement. Apply Cavilon skin barrier film to periwound and allow to dry. Place Optifoam AG over wound bed and secure with dry cover and date dressing. Keep heel elevated off mattress surface at all times DVT prophylaxis: SCDs, ambulatory Code Status: Full Discussed Condition With: The patient Discharge Planning: Anticipate D/C in next day or so, medically clear but case management working with placement (1) Diabetes type 1, uncontrolled Qualifiers: Diabetes mellitus complication detail: with diabetic retinopathy
--- NOTE | 2018-02-24 09:30 | P.PNNP ---
Subjective Interval history: Patient seen during HD, alert, no SOB, mild pain at [facility] site. Physical Exam Vital signs: Vital Signs 02/23/18 11:56 02/23/18 12:00 02/23/18 16:00 Temperature 97.2 F L 98.4 F Pulse Rate 98 H 80 Respiratory Rate 18 18 18 Blood Pressure 139/86 130/84 Pulse Oximetry 98 97 02/23/18 16:41 02/23/18 19:53 02/23/18 21:59 Temperature 97.8 F Pulse Rate 100 H Respiratory Rate 18 18 17 Blood Pressure 147/85 H Pulse Oximetry 96 02/24/18 00:00 02/24/18 00:03 02/24/18 04:00 Temperature 98.0 F 97.9 F Pulse Rate 93 H 107 H Respiratory Rate 17 16 18 Blood Pressure 134/77 136/84 Pulse Oximetry 96 96 02/24/18 04:04 02/24/18 08:00 Temperature 98.2 F Pulse Rate 101 H Respiratory Rate 18 18 Blood Pressure 160/86 H Pulse Oximetry 97 Intake & Output 02/23/18 02/24/18 02/24/18 18:59 06:59 18:59 Weight 68 kg Other: # Voids 2 Date of Last Bowel Movement 02/22/18 02/23/18 02/23/18 Narrative: GENERAL: WN, WD [] resting in bed in NAD. SKIN: Warm and dry. HEENT: AT/NC. Pupils equal and round. MMM. NECK: Supple no tender LAD or JVD. HEART: RRR no m/r/g. LUNGS: CTAB without wheezes or crackles. ABDOMEN: +BS, soft, NT, ND. EXTREMITIES: No LE edema. 2+ pedal pulses. NEURO: Awake and alert. Nonfocal. PSYCH: Appropriate mood and affect. Assessment and Plan - Assessment (1) End stage renal disease on dialysis Code(s): N18.6 - End stage renal disease; Z99.2 - Dependence on renal dialysis Status: Acute Plan: Patient has End stage renal disease on HD now TTS. AVF is not ready yet, AVF need more time for maturation. Has EGD and Colonoscopy done on 02/16., results noted. [facility] 02/20 Continue Epogen with dialysis Outpatient HD han/ [facility], 3:45pm chair time. Awaiting placement. HD now, tolerating well. (2) DKA, type 1 Code(s): E10.10 - Type 1 diabetes mellitus with ketoacidosis without coma Status: Acute Qualifiers: Diabetes mellitus complication detail: without coma Qualified Code(s): E10.10 - Type 1 diabetes mellitus with ketoacidosis without coma Plan: Insulin pump, seen by endocrinology (3) Anemia Code(s): D64.9 - Anemia, unspecified Status: Acute Plan: Hgb stable Epogen with dialysis (4) Hypertension Code(s): I10 - Essential (primary) hypertension Status: Acute Plan: Blood pressure labile hydralazine increased yesterday - Plan .
[2018-02-24] MEDS: Loratadine 10 MG Tablet PO SCH (09:40)
[2018-02-24] MEDS: Calcitriol 0.25 MCG Capsule PO SCH (09:41)
[2018-02-24] MEDS: Senna/Docusate Sodium 8.6/50 MG Tablet PO SCH ×2 (09:41→20:36)
[2018-02-24] MEDS: Topiramate 25 MG Tablet PO SCH (09:41)
[2018-02-24] MEDS: Pantoprazole Inj 40 MG Vial IV.PUSH SCH (09:41)
[2018-02-24] MEDS: hydrALAZINE 50 MG Tablet PO SCH ×3 (09:42→17:11)
[2018-02-24] MEDS: Sertraline 100 MG Tablet PO SCH (13:30)
[2018-02-24] MEDS: amLODIPine 5 MG Tablet PO SCH (13:30)
[2018-02-25] MEDS: oxyCODONE/Acetaminophen 10/325 Tablet PO PRN ×5 (02:22→21:20)
[2018-02-25 07:01] LABS: Hematocrit 25.1 % (39.0-51.0); Hemoglobin 8.3 gm/dL (13.0-17.0); Mean Corpuscular HGB Conc 33.1 % (32.0-36.0); Mean Corpuscular Hemoglobin 28.4 pg (27.0-34.0); Mean Corpuscular Volume 85.9 fL (80.0-100.0); Mean Platelet Volume 7.1 fL (7.0-11.0); Platelet Count 264 th/mm3 (150-450); Red Blood Count 2.92 mil/mm3 (4.50-5.90); Red Cell Distribution Width 15.5 % (11.6-17.2); White Blood Count 5.2 th/mm3 (4.0-11.0)
[2018-02-25 07:40] LABS: Calcium 7.5 mg/dL (8.5-10.1); Carbon Dioxide 25.9 meq/L (21.0-32.0); Potassium 3.4 meq/L (3.5-5.1)
[2018-02-25] MEDS: Loratadine 10 MG Tablet PO SCH (08:27)
[2018-02-25] MEDS: hydrALAZINE 50 MG Tablet PO SCH (08:27)
[2018-02-25] MEDS: Pantoprazole Inj 40 MG Vial IV.PUSH SCH (08:27)
[2018-02-25] MEDS: Sertraline 100 MG Tablet PO SCH (08:27)
[2018-02-25] MEDS: amLODIPine 5 MG Tablet PO SCH (08:28)
[2018-02-25] MEDS: Senna/Docusate Sodium 8.6/50 MG Tablet PO SCH ×2 (08:28→21:24)
[2018-02-25] MEDS: Calcitriol 0.25 MCG Capsule PO SCH (08:28)
[2018-02-25] MEDS: Topiramate 25 MG Tablet PO SCH (08:29)
--- NOTE | 2018-02-25 09:34 | P.PN ---
Subjective Interval history: Pt seen and examined for f/u of DKA and ESRD. Pt's main complaint is right wrist pain. This is the first day he is mentioning this to me but states it has been bothering him the past 3-4 days. He states the pain is present at rest but exacerbation with any movement at the wrist. He endorses a recent history of a fracture of that wrist that he was in a cast for. He states he was supposed to have follow-up imaging with ortho but was a loss to f/u. He states the pain doesn't wake him from his sleep. He endorses chronic paresthesias of his hands bilaterally secondary to neuropathy. He is right-handed. Otherwise no complaints. Tolerating PO. Denies CP, SOB, abdominal pain, N/V. He states prior to admission he was living in a "crappy trailer" but is hoping to be sent to an [facility] on discharge. Physical Exam Vital signs: Vital Signs 02/24/18 15:58 02/24/18 16:00 02/24/18 20:00 Temperature 98.4 F 97.5 F L Pulse Rate 112 H 107 H Respiratory Rate 18 18 Blood Pressure 123/78 142/78 H Pulse Oximetry 94 L 96 02/25/18 00:00 02/25/18 04:00 Temperature 98.8 F 98.5 F Pulse Rate 107 H 103 H Respiratory Rate 18 18 Blood Pressure 149/79 H 151/87 H Pulse Oximetry 95 97 Intake & Output 02/24/18 02/25/18 02/25/18 18:59 06:59 18:59 Intake Total 1000 / 1000 Output Total 6900 / 6900 1575 / 1575 Balance -6900 / -6900 -575 / -575 Intake: Oral 1000 / 1000 Output: Urine 2900 / 2900 1575 / 1575 Hemodialysis Amount 4000 / 4000 Other: Date of Last Bowel Movement 02/23/18 02/23/18 # Bowel Movements 1 Narrative: GENERAL: male resting in bed in NAD. SKIN: Warm and dry. CHEST: Vascath L chest, no surrounding erythema. HEART: RRR with 1/6 AL. LUNGS: CTAB without wheezes or crackles. ABDOMEN: +BS, soft, NT, ND. EXTREMITIES: R wrist/hand with no gross deformities. AVF R wrist with palpable thrill; no overlying erythema, edema, or warmth. Wrist diffusely tender over all aspects. Flexion and extension exacerbates pain but strength intact. No thenar atrophy. + Tinel sign. L foot with chronic appearing, superficial wound of lateral heel. Mild amount of sanguinous drainage on the dressing. NEURO: Awake and alert. Nonfocal. PSYCH: Appropriate mood and affect. Results - Labs CBC & Chem 7: 02/25/18 06:16 02/25/18 06:16 Laboratory Results - last 24 hr 02/24/18 02/24/18 02/24/18 11:50 16:51 21:09 WBC RBC Hgb Hct MCV MCH MCHC RDW Plt Count MPV Sodium Potassium Chloride Carbon Dioxide Anion Gap BUN Creatinine Estimated GFR POC Glucose 252 H 296 H 396 H Random Glucose Calcium 02/25/18 02/25/18 02/25/18 06:16 06:16 08:25 WBC 5.2 RBC 2.92 L Hgb 8.3 L Hct 25.1 L MCV 85.9 MCH 28.4 MCHC 33.1 RDW 15.5 Plt Count 264 MPV 7.1 Sodium 141 D Potassium 3.4 L Chloride 105 D Carbon Dioxide 25.9 Anion Gap 10 BUN 31 H Creatinine 3.60 H Estimated GFR 19 L POC Glucose 256 H Random Glucose 183 H Calcium 7.5 L - Procedures RIGHT SIDE HD CATHETER PLACEMENT HD Assessment and Plan - Assessment (1) Diabetes type 1, uncontrolled Code(s): E10.65 - Type 1 diabetes mellitus with hyperglycemia Status: Acute (2) Hypertension Code(s): I10 - Essential (primary) hypertension Status: Chronic (3) End stage renal disease on dialysis Code(s): N18.6 - End stage renal disease; Z99.2 - Dependence on renal dialysis Status: Chronic (4) Anemia Code(s): D64.9 - Anemia, unspecified Status: Chronic - Plan 37 year old male with history of IDDM, HTN, DVT on Eliquis, 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 1. DKA - resolved - Patient is a brittle diabetic with dietary noncompliance - On admission, patient had ABG with pH 6.95, AG 33, and glucose 831 with associated Kussmaul breathing and renal failure - S/P insulin drip and DKA protocol - Chef'S Assistant following, insulin pump adjusted 2. Type 1 DM - A1c 8.5 - Endocrinology following - On insulin pump - Diabetic diet 3. HCAP - resolved - CXR 02/09 with persistent right infiltrate - S/p vancomycin and aztreonam - Repeat CXR 02/15 with no acute cardiopulmonary disease - Incentive spirometer 4. ESRD - Nephrology following - Fistula in place however not yet mature. Permacath placed 02/20 - Outpatient chair time has been arranged MWF - Avoid nephrotoxins - Percocet PRN for pain at Permacath site 5. Hematochezia - GI consulted - S/P EGD/colonoscopy on 02/16. EGD was normal except irregular Z line biopsy was done. Colonoscopy showed multiple polyps, 1 of them was flat and large which could be a reason for bleeding. S/P polypectomy - Recommendations to repeat colonoscopy in 3 months, okay to discharge from GI standpoint - Monitor CBC while on Eliquis 6. Hypokalemia, mild - Managed with HD 7. History of DVT - Continue Eliquis 8. HTN - BPs elevated - Continue amlodipine, at max dose - Increase hydralazine to 100 mg TID - Clonidine PRN 9. Anemia - Iron studies suggest combination of anemia of chronic disease and iron deficiency - Hemodynamically stable - Continue to monitor - Epogen with dialysis 10. L Heel wound - Appears chronic, not acutely infected or significantly draining - Wound care nurse consulted * Cleanse left lateral heel wound with NS Q3D and PRN for saturation or dislodgement * Apply Cavilon skin barrier film to periwound and allow to dry * Place Optifoam AG over wound bed and secure with dry cover and date dressing. * Keep heel elevated off mattress surface at all times 11. R wrist pain/CTS - Exam and history consistent with CTS - Patient's fistula is also around the right wrist but there is no apparent infection - He also has a history of trauma and fracture to the wrist that he states was lost to f/u. Because of this will obtain XR to check alignment - Analgesics PRN - Treatment for CTS is wrist splint and activity modification - Continue Lyrica DVT prophylaxis: on Eliquis Discussed Condition With: The patient Discharge Planning: Anticipate D/C in next day or so, medically clear but case management working with placement (1) Diabetes type 1, uncontrolled Qualifiers: Diabetes mellitus complication detail: with diabetic retinopathy
--- NOTE | 2018-02-25 09:47 | XR ---
EXAM DATE: 02/25/2018 9:42 AM EDT AGE/SEX: 37 years / Male INDICATIONS: Wrist pain without trauma in entire wrist. CLINICAL DATA: This is the patient's initial encounter. Patient reports that signs and symptoms have been present for 1 day and indicates a pain score of 3/10. MEDICAL/SURGICAL HISTORY: . Fistula, forearm region. . Fistula repair, forearm region. COMPARISON: No prior exams available for comparison. FINDINGS: Imaging of the right wrist demonstrates a fracture of the distal one third of the radius, nondisplace d. The borders of the fracture demonstrate sclerosis consistent with a subacute injury. There are jared gical clips adjacent to the radial aspect of the wrist and there is focal soft tissue prominence over lying the radial aspect of the distal radius. The osseous structures of the wrist are otherwise unrem arkable with normal alignment and mineralization. Soft tissues demonstrate atherosclerosis. CONCLUSION: Subacute nondisplaced fracture involving the distal one third of the ulna and focal soft tissue promi nence overlying the radial aspect of the wrist without evidence of adjacent osseous abnormality. Electronically signed by: Casi Enriquez MD 02/25/2018 9:45 AM EDT
--- NOTE | 2018-02-25 11:58 | P.PNNP ---
Subjective Interval history: Patient is alert, no SOB, eating well. Physical Exam Vital signs: Vital Signs 02/24/18 15:58 02/24/18 16:00 02/24/18 20:00 Temperature 98.4 F 97.5 F L Pulse Rate 112 H 107 H Respiratory Rate 18 18 Blood Pressure 123/78 142/78 H Pulse Oximetry 94 L 96 02/25/18 00:00 02/25/18 04:00 02/25/18 08:00 Temperature 98.8 F 98.5 F 98.6 F Pulse Rate 107 H 103 H 101 H Respiratory Rate 18 18 Blood Pressure 149/79 H 151/87 H 182/100 H Pulse Oximetry 95 97 97 Intake & Output 02/24/18 02/25/18 02/25/18 18:59 06:59 18:59 Intake Total 1000 / 1000 Output Total 6900 / 6900 1575 / 1575 Balance -6900 / -6900 -575 / -575 Intake: Oral 1000 / 1000 Output: Urine 2900 / 2900 1575 / 1575 Hemodialysis Amount 4000 / 4000 Other: Date of Last Bowel Movement 02/23/18 02/23/18 # Bowel Movements 1 Narrative: GENERAL: male resting in bed in [facility]. SKIN: Warm and dry. CHEST: Vascath L chest, no surrounding erythema. HEART: RRR with 1/6 AL. LUNGS: CTAB without wheezes or crackles. ABDOMEN: +BS, soft, NT, ND. EXTREMITIES: R wrist/hand with no gross deformities. AVF R wrist with palpable thrill; no overlying erythema, edema, or warmth. Wrist diffusely tender over all aspects. Flexion and extension exacerbates pain but strength intact. No thenar atrophy. + Tinel sign. L foot with chronic appearing, superficial wound of lateral heel. Mild amount of sanguinous drainage on the dressing. NEURO: Awake and alert. Nonfocal. PSYCH: Appropriate mood and affect. Assessment and Plan - Assessment (1) End stage renal disease on dialysis Code(s): N18.6 - End stage renal disease; Z99.2 - Dependence on renal dialysis Status: Chronic Plan: Patient has End stage renal disease on HD now TTS. AVF is not ready yet, AVF need more time for maturation. Has EGD and Colonoscopy done on 02/16., results noted. PermCath 02/20 Continue Epogen with dialysis Outpatient HD arranged/ [facility], 3:45pm chair time. Awaiting placement. HD done yesterday. (2) DKA, type 1 Code(s): E10.10 - Type 1 diabetes mellitus with ketoacidosis without coma Status: Acute Qualifiers: Diabetes mellitus complication detail: without coma Qualified Code(s): E10.10 - Type 1 diabetes mellitus with ketoacidosis without coma Plan: Insulin pump, seen by endocrinology (3) Anemia Code(s): D64.9 - Anemia, unspecified Status: Chronic Plan: Hgb stable Epogen with dialysis (4) Hypertension Code(s): I10 - Essential (primary) hypertension Status: Acute Plan: Blood pressure labile hydralazine increased yesterday - Plan .
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
[2018-02-26] MEDS: oxyCODONE/Acetaminophen 10/325 Tablet PO PRN ×4 (02:17→22:46)
[2018-02-26 06:18] LABS: Hematocrit 26.1 % (39.0-51.0); Hemoglobin 8.6 gm/dL (13.0-17.0); Mean Corpuscular HGB Conc 33.1 % (32.0-36.0); Mean Corpuscular Hemoglobin 28.6 pg (27.0-34.0); Mean Corpuscular Volume 86.5 fL (80.0-100.0); Mean Platelet Volume 7.1 fL (7.0-11.0); Platelet Count 309 th/mm3 (150-450); Red Blood Count 3.02 mil/mm3 (4.50-5.90); Red Cell Distribution Width 16.1 % (11.6-17.2); White Blood Count 6.6 th/mm3 (4.0-11.0)
[2018-02-26 06:37] LABS: Calcium 7.4 mg/dL (8.5-10.1); Carbon Dioxide 25.4 meq/L (21.0-32.0); Potassium 3.5 meq/L (3.5-5.1)
[2018-02-26 07:03] LABS: Total Protein 5.3 g/dL (6.4-8.2)
[2018-02-26] MEDS: NOVOLOG INSULIN ASPART PUMP.IMPL PRN ×2 (08:30→13:15)
[2018-02-26] MEDS: Pantoprazole Inj 40 MG Vial IV.PUSH SCH (08:52)
[2018-02-26] MEDS: Calcitriol 0.25 MCG Capsule PO SCH (08:52)
[2018-02-26] MEDS: Senna/Docusate Sodium 8.6/50 MG Tablet PO SCH ×2 (08:53→20:58)
[2018-02-26] MEDS: Loratadine 10 MG Tablet PO SCH (08:53)
[2018-02-26] MEDS: amLODIPine 5 MG Tablet PO SCH (08:53)
[2018-02-26] MEDS: Sertraline 100 MG Tablet PO SCH (08:57)
[2018-02-26] MEDS: Topiramate 25 MG Tablet PO SCH (08:57)
--- NOTE | 2018-02-26 09:13 | MB ---
cc: ePrez Green MD DATE: 02/26/2018 REASON FOR CONSULTATION: Right ulna fracture. HISTORY OF PRESENT ILLNESS: Gian is a 37-year-old male who has multiple medical problems including insulin-dependent diabetes, hypertension, peripheral neuropathy, retinopathy and history of DVT. He also has renal failure. He was admitted on 02/05/2018 for multiple medical problems. He is being treated for his diabetes and renal failure. He is currently awake and alert on the orthopedic floor. He complains of right wrist pain. He states that he fell approximately 4 weeks prior to admission. He began developing right-sided wrist pain after his fall. Pain had been improving until yesterday. He noticed some increased pain yesterday. He has been using a cane in his right arm. Pain is worse with weightbearing. PAST MEDICAL HISTORY: Illnesses: Anxiety, chronic renal failure, depression, diabetes, DVT, peripheral neuropathy, hypertension. PAST SURGICAL HISTORY: Right foot surgery. ALLERGIES: AMOXICILLIN AND PENICILLIN. MEDICATIONS: Please see EMR for complete list of inpatient medications. This was reviewed. SOCIAL HISTORY: The patient denies alcohol, tobacco or drug use. FAMILY HISTORY: Noncontributory. REVIEW OF SYSTEMS: The patient denies fevers, chills, weight loss, headache, visual changes, hearing loss, chest pain, palpitations, shortness of breath, nausea, vomiting, urinary changes, diarrhea, bowel changes, neck pain, back pain, skin rashes, weakness of extremities, anxiety or depression. He does have peripheral neuropathy with diminished sensation in his hands and feet. He complains of right wrist pain. IMAGING: X-rays of right forearm were reviewed. X-rays reveal minimally displaced distal ulnar shaft fracture. LABORATORY DATA: The patient has a white blood cell count of 7.3, hemoglobin of 30.0, platelet count of 223. INR 1.0. PHYSICAL EXAMINATION: GENERAL: The patient is a well-developed, well-nourished 37-year-old male, who is in no acute distress. He is awake and alert. He is alert and oriented x3. VITAL SIGNS: Temperature 97.7, pulse 97, respirations 17, blood pressure 153/83, O2 saturation is 96% on room air. HEENT: Head: The patient is normocephalic. Pupils are equal. NECK: Soft, nontender. The trachea is in the midline. ABDOMEN: Soft, nontender, nondistended. EXTREMITIES: Examination of right arm reveals no obvious pain or deformity with shoulder, elbow or wrist motion. He has diminished sensation in all fingers. He is tender to palpation over the distal ulna shaft. Skin is intact. Radial pulses palpable. Examination of the left arm reveals no pain with shoulder, elbow or wrist motion. Skin is intact. Radial pulses palpable. Examination of bilateral lower extremities reveals no obvious pain or deformity with hip, knee or ankle motion. He has diminished sensation to both feet. He has good capillary refill in his toes. IMPRESSION: 1. Diabetes. 2. Chronic renal failure. 3. Peripheral neuropathy. 4. Right distal ulnar shaft fracture. PLAN: Treatment options were discussed with the patient. At this point, his injury appears to have happened approximately 7 weeks ago. At this point, would recommend continued nonoperative treatment. Fracture is relatively well aligned and has some early fracture healing. I would not recommend a cast or further immobilization at this time. Fracture appears to be healing appropriately. He should limit his weightbearing and should not use a cane or walker in his right hand. I will continue to follow the patient's progress. A mid-level provider in my office, nurse practitioner or PA, may see this patient on a follow-up basis and continue to implement the objective of this plan including: Starting or adjusting medications, injections of muscle, tendon, bursa or joints, cast application, orthotic or brace application, physical therapy, further radiographic studies including x-ray, MRI, CT, ultrasounds or bone scan, vascular studies, neurologic studies, or other specialist consultations, and proceeding with surgical management as appropriate. MD TAMICA Sandy/DANISH , 08:55 AM , 09:04 AM
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
--- NOTE | 2018-02-26 10:00 | P.PNNP ---
Subjective Interval history: Reports some right wrist discomfort. Denies any shortness of breath. Mild lower extremity edema. <aJzlyn De Anda - Last Filed: 02/26/18 09:53> Physical Exam Vital signs: Vital Signs 02/25/18 10:12 02/25/18 12:00 02/25/18 16:00 Temperature 97.7 F 98.2 F Pulse Rate 97 H 102 H Respiratory Rate 16 17 20 Blood Pressure 153/83 H 152/79 H Pulse Oximetry 96 20 L 02/25/18 20:00 02/26/18 00:00 02/26/18 08:00 Temperature 98.1 F 98.2 F 98.7 F Pulse Rate 102 H 99 H 99 H Respiratory Rate 18 18 19 Blood Pressure 148/87 H 173/98 H 155/92 H Pulse Oximetry 97 97 91 L Intake & Output 02/25/18 02/26/18 02/26/18 18:59 06:59 18:59 Intake Total 1250 / 1250 Output Total 1500 / 1500 Balance -250 / -250 Weight 68 kg Intake: Oral 1250 / 1250 Output: Urine 1500 / 1500 Other: Date of Last Bowel Movement 02/24/18 02/24/18 Narrative: GENERAL: Alert and oriented. SKIN: Warm and dry. CHEST: HD catheter left IJ. HEART: Heart regular. LUNGS: Lungs are clear and equal bilaterally. ABDOMEN: +BS, soft, NT, ND. EXTREMITIES: R wrist/hand with no gross deformities. AVF R wrist with palpable thrill; no overlying erythema, edema, or warmth. Wrist diffusely tender over all aspects. L foot with chronic appearing, superficial wound of lateral heel. PSYCH: Appropriate mood and affect. <Jazlyn De Anda - Last Filed: 02/26/18 09:53> Vital signs: Vital Signs 02/27/18 00:00 02/27/18 04:00 02/27/18 08:00 Temperature 98.1 F 98.5 F 98.1 F Pulse Rate 96 H 95 H 92 H Respiratory Rate 18 18 17 Blood Pressure 122/70 130/68 131/79 Pulse Oximetry 92 L 93 L 92 L 02/27/18 12:00 02/27/18 12:46 02/27/18 16:00 Temperature 98.8 F 98.9 F Pulse Rate 104 H 101 H Respiratory Rate 17 18 17 Blood Pressure 158/80 H 127/65 Pulse Oximetry 95 93 L 02/27/18 16:31 Temperature Pulse Rate Respiratory Rate 18 Blood Pressure Pulse Oximetry Intake & Output 02/27/18 02/27/18 02/28/18 06:59 18:59 06:59 Output Total 2300 / 2300 3100 / 3100 Balance -2300 / -2300 -3100 / -3100 Output: Urine 2300 / 2300 100 / 100 Hemodialysis Amount 3000 / 3000 Other: Date of Last Bowel Movement 02/24/18 <Bay Gifford - Last Filed: 02/27/18 21:47> Assessment and Plan - Assessment (1) End stage renal disease on dialysis Code(s): N18.6 - End stage renal disease; Z99.2 - Dependence on renal dialysis Status: Chronic Plan: Patient has End stage renal disease on HD now TTS. AVF is not ready yet, AVF need more time for maturation. Has EGD and Colonoscopy done on 02/16., results noted. PermCath 02/20 Continue Epogen with dialysis Outpatient HD arranged/ [facility], 3:45pm chair time. Awaiting placement. Hemodialysis tomorrow (2) DKA, type 1 Code(s): E10.10 - Type 1 diabetes mellitus with ketoacidosis without coma Status: Acute Qualifiers: Diabetes mellitus complication detail: without coma Qualified Code(s): E10.10 - Type 1 diabetes mellitus with ketoacidosis without coma Plan: Insulin pump, better controlled (3) Anemia Code(s): D64.9 - Anemia, unspecified Status: Chronic Plan: Hgb stable Epogen with dialysis (4) Hypertension Code(s): I10 - Essential (primary) hypertension Status: Acute Plan: Blood pressure continues to labile, will monitor <Jazlyn De Anda - Last Filed: 02/26/18 09:53> - Assessment (1) End stage renal disease on dialysis Code(s): N18.6 - End stage renal disease; Z99.2 - Dependence on renal dialysis Status: Chronic (2) DKA, type 1 Code(s): E10.10 - Type 1 diabetes mellitus with ketoacidosis without coma Status: Acute Qualifiers: Diabetes mellitus complication detail: without coma Qualified Code(s): E10.10 - Type 1 diabetes mellitus with ketoacidosis without coma (3) Anemia Code(s): D64.9 - Anemia, unspecified Status: Chronic (4) Hypertension Code(s): I10 - Essential (primary) hypertension Status: Acute - Attending Attestation Patient seen and examined, agree with above. HD will be in AM, awaiting placement. <Bay Gifford - Last Filed: 02/27/18 21:47>
--- NOTE | 2018-02-26 11:39 | XR ---
EXAM DATE: 02/26/2018 11:31 AM EDT AGE/SEX: 37 years / Male INDICATIONS: . Cough, short of breath. CLINICAL DATA: This is the patient's subsequent encounter. Patient reports that signs and symptoms h ave been present for 3 weeks and indicates a pain score of 0/10. MEDICAL/SURGICAL HISTORY: . Diabetes mellitus type II . . Dialysis catheter placement COMPARISON: [facility], CHEST 2V PA&LAT, 02/15/2018. . FINDINGS: PA and lateral views of the chest demonstrate minimal bibasilar densities. Left-sided vascular cathet er with tip at the cavoatrial junction. No pneumothorax. The cardiomediastinal contours are unremarka ble. Osseous structures are intact. CONCLUSION: Minimal bibasilar densities could be atelectasis or infiltrates. Electronically signed by: Fabricio Isaac MD 02/26/2018 11:38 AM EDT
[2018-02-26] MEDS: Metoprolol Tartrate 25 MG Tablet PO SCH (20:58)
[2018-02-27] MEDS: oxyCODONE/Acetaminophen 10/325 Tablet PO PRN ×4 (02:51→21:48)
[2018-02-27 07:02] LABS: Albumin 1.9 g/dL (3.4-5.0); Calcium 7.6 mg/dL (8.5-10.1); Carbon Dioxide 24.1 meq/L (21.0-32.0); Phosphorus 6.2 mg/dL (2.5-4.9); Potassium 3.5 meq/L (3.5-5.1)
[2018-02-27] MEDS ORDERED: Insulin Detemir Inj 1,000 UNIT/10 ML Vial SQ SCH ×2 (09:00→12:17)
--- NOTE | 2018-02-27 09:42 | P.PNNP ---
Subjective Interval history: Blood sugars elevated, last night pulled insulin pump out accidently. Seen during hemodialysis tolerating well. <Jazlyn De Anda - Last Filed: 02/27/18 14:13> Physical Exam Vital signs: Vital Signs 02/26/18 12:00 02/26/18 16:00 02/26/18 20:00 Temperature 98.4 F 98.5 F 98.5 F Pulse Rate 104 H 97 H 118 H Respiratory Rate 19 19 20 Blood Pressure 161/96 H 153/86 H 145/76 H Pulse Oximetry 95 94 L 95 02/27/18 00:00 02/27/18 04:00 02/27/18 08:00 Temperature 98.1 F 98.5 F 98.1 F Pulse Rate 96 H 95 H 92 H Respiratory Rate 18 18 17 Blood Pressure 122/70 130/68 131/79 Pulse Oximetry 92 L 93 L 92 L Intake & Output 02/26/18 02/27/18 02/27/18 18:59 06:59 18:59 Output Total 2300 / 2300 Balance -2300 / -2300 Output: Urine 2300 / 2300 Other: Date of Last Bowel Movement 02/24/18 02/24/18 Narrative: GENERAL: Alert and oriented. SKIN: Warm and dry. Left foot with chronic appearing wound CHEST: HD catheter left IJ. HEART: Heart regular. AVF in right wrist with positive thrill and bruit. LUNGS: Lungs are clear and equal bilaterally. ABDOMEN: Soft with positive bowel sounds. Non tender EXTREMITIES: Normal range of motion. PSYCH: Appropriate mood and affect. <Jazlyn De Anda - Last Filed: 02/27/18 14:13> Vital signs: Vital Signs 02/27/18 00:00 02/27/18 04:00 02/27/18 08:00 Temperature 98.1 F 98.5 F 98.1 F Pulse Rate 96 H 95 H 92 H Respiratory Rate 18 18 17 Blood Pressure 122/70 130/68 131/79 Pulse Oximetry 92 L 93 L 92 L 02/27/18 12:00 02/27/18 12:46 02/27/18 16:00 Temperature 98.8 F 98.9 F Pulse Rate 104 H 101 H Respiratory Rate 17 18 17 Blood Pressure 158/80 H 127/65 Pulse Oximetry 95 93 L 02/27/18 16:31 Temperature Pulse Rate Respiratory Rate 18 Blood Pressure Pulse Oximetry Intake & Output 02/27/18 02/27/18 02/28/18 06:59 18:59 06:59 Output Total 2300 / 2300 3100 / 3100 Balance -2300 / -2300 -3100 / -3100 Output: Urine 2300 / 2300 100 / 100 Hemodialysis Amount 3000 / 3000 Other: Date of Last Bowel Movement 02/24/18 <Bay Gifford - Last Filed: 02/27/18 21:48> Assessment and Plan - Assessment (1) End stage renal disease on dialysis Code(s): N18.6 - End stage renal disease; Z99.2 - Dependence on renal dialysis Status: Chronic Plan: Patient has End stage renal disease on HD now TTS. AVF is not ready yet, AVF need more time for maturation. Has EGD and Colonoscopy done on 02/16., results noted. PermCath 02/20 Continue Epogen with dialysis Outpatient HD arranged/ [facility], 3:45pm chair time. Awaiting placement. Hemodialysis today with removal of 3 liters of fluid (2) DKA, type 1 Code(s): E10.10 - Type 1 diabetes mellitus with ketoacidosis without coma Status: Acute Qualifiers: Diabetes mellitus complication detail: without coma Qualified Code(s): E10.10 - Type 1 diabetes mellitus with ketoacidosis without coma Plan: Insulin pump accidently pulled out, blood sugars elevated Maintain blood sugars between 140 mg/dl to 180 mg/dl (3) Anemia Code(s): D64.9 - Anemia, unspecified Status: Chronic Plan: Hgb stable Epogen with dialysis (4) Hypertension Code(s): I10 - Essential (primary) hypertension Status: Acute Plan: Blood pressure better controlled, will monitor - Plan . <Jazlyn De Anda - Last Filed: 02/27/18 14:13> - Assessment (1) End stage renal disease on dialysis Code(s): N18.6 - End stage renal disease; Z99.2 - Dependence on renal dialysis Status: Chronic (2) DKA, type 1 Code(s): E10.10 - Type 1 diabetes mellitus with ketoacidosis without coma Status: Acute Qualifiers: Diabetes mellitus complication detail: without coma Qualified Code(s): E10.10 - Type 1 diabetes mellitus with ketoacidosis without coma (3) Anemia Code(s): D64.9 - Anemia, unspecified Status: Chronic (4) Hypertension Code(s): I10 - Essential (primary) hypertension Status: Acute - Attending Attestation Patient seen and examined, agree with above. HD done in AM, BS is occ. low. For placement, out patient HD arranged. <Bay Gifford - Last Filed: 02/27/18 21:48>
[2018-02-27] MEDS: Senna/Docusate Sodium 8.6/50 MG Tablet PO SCH ×2 (12:03→21:42)
[2018-02-27] MEDS ORDERED: Dextrose 50% in Water 50 ML Vial IV.PUSH PRN (12:16)
[2018-02-27] MEDS: Metoprolol Tartrate 25 MG Tablet PO SCH ×2 (12:18→21:42)
[2018-02-27] MEDS: Loratadine 10 MG Tablet PO SCH (12:18)
[2018-02-27] MEDS: Calcitriol 0.25 MCG Capsule PO SCH (12:18)
[2018-02-27] MEDS: amLODIPine 5 MG Tablet PO SCH (12:19)
[2018-02-27] MEDS: Pantoprazole Inj 40 MG Vial IV.PUSH SCH (12:24)
[2018-02-27] MEDS: Sertraline 100 MG Tablet PO SCH (12:37)
[2018-02-27] MEDS: Topiramate 25 MG Tablet PO SCH (12:37)
--- NOTE | 2018-02-27 13:07 | P.PN ---
Subjective Interval history: Pt seen and examined. Blood sugars have been running high and come to find out patient accidentally pulled out his insulin pump when it got tangled to the phone cord and he got up out of bed. He states this has happened at home and he has a replacement part but it is not currently on him and he is having little success reaching out to someone who lives in his trailer. Unfortunately, endocrinology reportedly no longer coming to the hospital. Pt states he is experiencing some abdominal cramping that he attributes to the hyperglycemia. Otherwise no new complaints. Denies CP or SOB. Physical Exam Vital signs: Vital Signs 02/26/18 16:00 02/26/18 20:00 02/27/18 00:00 Temperature 98.5 F 98.5 F 98.1 F Pulse Rate 97 H 118 H 96 H Respiratory Rate 19 20 18 Blood Pressure 153/86 H 145/76 H 122/70 Pulse Oximetry 94 L 95 92 L 02/27/18 04:00 02/27/18 08:00 02/27/18 12:00 Temperature 98.5 F 98.1 F 98.8 F Pulse Rate 95 H 92 H 104 H Respiratory Rate 18 17 17 Blood Pressure 130/68 131/79 158/80 H Pulse Oximetry 93 L 92 L 95 Intake & Output 02/26/18 02/27/18 02/27/18 18:59 06:59 18:59 Output Total 2300 / 2300 3000 / 3000 Balance -2300 / -2300 -3000 / -3000 Output: Urine 2300 / 2300 Hemodialysis Amount 3000 / 3000 Other: Date of Last Bowel Movement 02/24/18 02/24/18 Narrative: GENERAL: male resting in bed in [facility]. SKIN: Warm and dry. CHEST: Vascath L chest, no surrounding erythema. HEART: RRR with 1/6 AL. LUNGS: Bibasilar crackles. ABDOMEN: +BS, soft, NT, ND. EXTREMITIES: R wrist/hand with no gross deformities. AVF R wrist with palpable thrill; no overlying erythema, edema, or warmth. NEURO: Awake and alert. Nonfocal. PSYCH: Appropriate mood and affect. Results - Labs CBC & Chem 7: 02/26/18 05:24 02/27/18 05:55 Laboratory Results - last 24 hr 02/26/18 02/26/18 02/26/18 13:09 17:25 20:55 Sodium Potassium Chloride Carbon Dioxide Anion Gap BUN Creatinine Estimated GFR POC Glucose 333 H 290 H 459 H* Random Glucose Calcium Phosphorus Albumin 02/26/18 02/27/18 02/27/18 22:39 02:15 05:55 Sodium 138 Potassium 3.5 Chloride 104 Carbon Dioxide 24.1 Anion Gap 10 BUN 35 H Creatinine 5.06 H Estimated GFR 13 L POC Glucose 427 H 353 H Random Glucose 200 H Calcium 7.6 L Phosphorus 6.2 H Albumin 1.9 L 02/27/18 02/27/18 02/27/18 07:51 10:55 12:05 Sodium Potassium Chloride Carbon Dioxide Anion Gap BUN Creatinine Estimated GFR POC Glucose 282 H 280 H 309 H Random Glucose Calcium Phosphorus Albumin - Procedures RIGHT SIDE HD CATHETER PLACEMENT HD Assessment and Plan - Assessment (1) Diabetes type 1, uncontrolled Code(s): E10.65 - Type 1 diabetes mellitus with hyperglycemia Status: Acute (2) Hypertension Code(s): I10 - Essential (primary) hypertension Status: Chronic (3) End stage renal disease on dialysis Code(s): N18.6 - End stage renal disease; Z99.2 - Dependence on renal dialysis Status: Chronic (4) Anemia Code(s): D64.9 - Anemia, unspecified Status: Chronic - Plan 37 year old male with history of IDDM, HTN, DVT on Eliquis, 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 1. DKA - resolved - Patient is a brittle diabetic with dietary noncompliance - On admission, patient had ABG with pH 6.95, AG 33, and glucose 831 with associated Kussmaul breathing and renal failure - S/P insulin drip and DKA protocol 2. Type 1 DM - A1c 8.5 - Airline Mechanic was following and his insulin pump was adjusted. Unfortunately , his pump came out too and I was informed by RN that endocrine is no longer coming to the hospital - Glucose has been running 200-300 and has crept up to to the 400s - Place on SSI and Levemir 10 units BID - Novolog 10 units x 1 now - Diabetic diet 3. HCAP - resolved - CXR 02/09 right infiltrate - S/p vancomycin and aztreonam - Repeat CXR 02/15 with no acute cardiopulmonary disease - Repeat CXR 02/26 showing some bibasilar airspace disease and in this clinical setting I believe it is atelectasis as the patient has been laying around and he has been afebrile with no leukocytosis - Incentive spirometer - Supplemental O2 to maintain sats >92% - Monitor for signs of infection 4. ESRD - Nephrology following - Fistula in place however not yet mature. Permacath placed 02/20 - Outpatient chair time has been arranged MWF - Avoid nephrotoxins - Percocet PRN for pain at Permacath site 5. Hematochezia - GI consulted - S/P EGD/colonoscopy on 02/16. EGD was normal except irregular Z line biopsy was done. Colonoscopy showed multiple polyps, 1 of them was flat and large which could be a reason for bleeding. S/P polypectomy - Recommendations to repeat colonoscopy in 3 months, okay to discharge from GI standpoint - Monitor CBC while on Eliquis 6. Hypokalemia, mild - Managed with HD 7. History of DVT - Continue Eliquis 8. HTN - BPs continue to be elevated - Continue amlodipine, at max dose - Hydralazine increased to to 100 mg TID - Started metoprolol 25 mg BID (HR in the 90-100s) - Clonidine PRN 9. Anemia - Iron studies suggest combination of anemia of chronic disease and iron deficiency - Hemodynamically stable - Continue to monitor - Epogen with dialysis 10. L Heel wound - Appears chronic, not acutely infected or significantly draining - Wound care nurse consulted * Cleanse left lateral heel wound with NS Q3D and PRN for saturation or dislodgement * Apply Cavilon skin barrier film to periwound and allow to dry * Place Optifoam AG over wound bed and secure with dry cover and date dressing. * Keep heel elevated off mattress surface at all times 11. R wrist pain - XR showing subacute fracture involving the distal third of the ulna - Ortho consulted no further intervention, no need for splint or cast - Analgesics PRN - Continue Lyrica Patient with multiple comorbid conditions as described above and poor social situation. PT recommending long-term placement but unfortunately placement is going to be a problem and now patient's insulin pump came out so that needs to be dealt with and endocrinology not coming to the hospital. D/W case management DVT prophylaxis: on Eliquis Discussed Condition With: Patient, RN, and case management Discharge Planning: Anticipate D/C in next day or so, medically clear but case management working with placement (1) Diabetes type 1, uncontrolled Qualifiers: Diabetes mellitus complication detail: with diabetic retinopathy
[2018-02-27] MEDS: Insulin NovoLOG Aspart Correctional Sugar Inj SQ SCH ×2 (16:54→21:53)
[2018-02-28 05:28] LABS: Hematocrit 24.1 % (39.0-51.0); Hemoglobin 7.9 gm/dL (13.0-17.0); Mean Corpuscular Hemoglobin 29.2 pg (27.0-34.0); Mean Corpuscular Volume 88.4 fL (80.0-100.0); Mean Platelet Volume 7.5 fL (7.0-11.0); Platelet Count 281 th/mm3 (150-450); Red Blood Count 2.72 mil/mm3 (4.50-5.90); Red Cell Distribution Width 15.6 % (11.6-17.2); White Blood Count 6.9 th/mm3 (4.0-11.0)
[2018-02-28 05:48] LABS: Calcium 7.4 mg/dL (8.5-10.1); Carbon Dioxide 26.8 meq/L (21.0-32.0); Potassium 3.1 meq/L (3.5-5.1)
[2018-02-28 06:01] LABS: Total Protein 4.9 g/dL (6.4-8.2)
[2018-02-28] MEDS: Insulin NovoLOG Aspart Correctional Sugar Inj SQ SCH ×3 (08:10→17:51)
[2018-02-28] MEDS: amLODIPine 5 MG Tablet PO SCH (08:59)
[2018-02-28] MEDS: Topiramate 25 MG Tablet PO SCH (09:00)
[2018-02-28] MEDS: Pantoprazole Inj 40 MG Vial IV.PUSH SCH (09:00)
[2018-02-28] MEDS ORDERED: Insulin Detemir Inj 1,000 UNIT/10 ML Vial SQ SCH (09:00)
[2018-02-28] MEDS: Calcitriol 0.25 MCG Capsule PO SCH (09:00)
[2018-02-28] MEDS: Sertraline 100 MG Tablet PO SCH (09:00)
[2018-02-28] MEDS: Metoprolol Tartrate 25 MG Tablet PO SCH ×2 (09:00→21:22)
[2018-02-28] MEDS: Senna/Docusate Sodium 8.6/50 MG Tablet PO SCH ×2 (09:00→21:23)
[2018-02-28] MEDS: Loratadine 10 MG Tablet PO SCH (09:00)
--- NOTE | 2018-02-28 10:38 | P.PNNP ---
Subjective Interval history: Doing well, denies any shortness of breath. Lower extremity edema. <Jazlyn De Anda - Last Filed: 02/28/18 10:34> Physical Exam Vital signs: Vital Signs 02/27/18 12:00 02/27/18 12:46 02/27/18 16:00 Temperature 98.8 F 98.9 F Pulse Rate 104 H 101 H Respiratory Rate 17 18 17 Blood Pressure 158/80 H 127/65 Pulse Oximetry 95 93 L 02/27/18 16:31 02/27/18 20:00 02/28/18 00:00 Temperature 98.1 F 97.8 F Pulse Rate 92 H 91 H Respiratory Rate 18 18 18 Blood Pressure 132/70 126/58 L Pulse Oximetry 95 93 L 02/28/18 07:11 02/28/18 08:00 Temperature 98.4 F Pulse Rate 86 Respiratory Rate 18 17 Blood Pressure 143/79 H Pulse Oximetry 92 L Intake & Output 02/27/18 02/28/18 02/28/18 18:59 06:59 18:59 Intake Total 0 / 0 Output Total 3100 / 3100 Balance -3100 / -3100 0 / 0 Weight 81.6 kg Intake: Oral 0 / 0 Output: Urine 100 / 100 Hemodialysis Amount 3000 / 3000 Other: # Voids 0 Narrative: GENERAL: Alert and oriented. SKIN: Warm and dry. Left foot with chronic appearing wound CHEST: HD catheter left IJ. HEART: Heart regular. AVF in right wrist with positive thrill and bruit. Lower extremity edema. LUNGS: Lungs are clear and equal bilaterally. ABDOMEN: Soft with positive bowel sounds. Non tender EXTREMITIES: Normal range of motion. PSYCH: Appropriate mood and affect. <Jazlyn De Anda - Last Filed: 02/28/18 10:34> Vital signs: Vital Signs 02/28/18 00:00 02/28/18 07:11 02/28/18 08:00 Temperature 97.8 F 98.4 F Pulse Rate 91 H 86 Respiratory Rate 18 18 17 Blood Pressure 126/58 L 143/79 H Pulse Oximetry 93 L 92 L 02/28/18 11:58 02/28/18 16:00 02/28/18 20:00 Temperature 98.2 F 97.6 F 97.5 F L Pulse Rate 84 82 85 Respiratory Rate 18 18 17 Blood Pressure 104/61 136/82 129/73 Pulse Oximetry 95 93 L 94 L Intake & Output 02/28/18 02/28/18 03/01/18 06:59 18:59 06:59 Intake Total 0 / 0 1200 / 1200 Output Total 1999 Balance 0 / 0 -800 / -800 Weight 81.6 kg Intake: Oral 0 / 0 1200 / 1200 Output: Urine 1999 Other: # Voids 0 Date of Last Bowel Movement 02/24/18 <Bay Gifford - Last Filed: 02/28/18 21:22> Assessment and Plan - Assessment (1) End stage renal disease on dialysis Code(s): N18.6 - End stage renal disease; Z99.2 - Dependence on renal dialysis Status: Chronic Plan: Patient has End stage renal disease on HD now TTS. AVF is not ready yet, AVF need more time for maturation. Has EGD and Colonoscopy done on 02/16., results noted. PermCath 02/20 Continue Epogen with dialysis Outpatient HD arranged/ [facility], 3:45pm chair time. Awaiting placement. Hemodialysis yesterday with removal of 3 liters of fluid Lower extremity edema will add Lasix daily. (2) DKA, type 1 Code(s): E10.10 - Type 1 diabetes mellitus with ketoacidosis without coma Status: Acute Qualifiers: Diabetes mellitus complication detail: without coma Qualified Code(s): E10.10 - Type 1 diabetes mellitus with ketoacidosis without coma Plan: Maintain blood sugars between 140 mg/dl to 180 mg/dl (3) Anemia Code(s): D64.9 - Anemia, unspecified Status: Chronic Plan: Hgb 7.9 from 8.6 Will order iron studies Epogen with dialysis (4) Hypertension Code(s): I10 - Essential (primary) hypertension Status: Acute Plan: Blood pressure better controlled, will monitor <Jazlyn De Anda - Last Filed: 02/28/18 10:34> - Assessment (1) End stage renal disease on dialysis Code(s): N18.6 - End stage renal disease; Z99.2 - Dependence on renal dialysis Status: Chronic (2) DKA, type 1 Code(s): E10.10 - Type 1 diabetes mellitus with ketoacidosis without coma Status: Acute Qualifiers: Diabetes mellitus complication detail: without coma Qualified Code(s): E10.10 - Type 1 diabetes mellitus with ketoacidosis without coma (3) Anemia Code(s): D64.9 - Anemia, unspecified Status: Chronic (4) Hypertension Code(s): I10 - Essential (primary) hypertension Status: Acute - Attending Attestation Patient seen and examined, agree with above. HD will be in AM. <Bay Gifford - Last Filed: 02/28/18 21:22>
--- NOTE | 2018-02-28 13:05 | P.PNIM ---
Subjective Interval history: Patient states that he received the equipment needed from his roommate from home to reinsert his insulin pump. Request to be off of other insulin administration now that he has his insulin pump for glycemic control. Physical Exam Vital signs: Vital Signs 02/27/18 16:00 02/27/18 16:31 02/27/18 20:00 Temperature 98.9 F 98.1 F Pulse Rate 101 H 92 H Respiratory Rate 17 18 18 Blood Pressure 127/65 132/70 Pulse Oximetry 93 L 95 02/28/18 00:00 02/28/18 07:11 02/28/18 08:00 Temperature 97.8 F 98.4 F Pulse Rate 91 H 86 Respiratory Rate 18 18 17 Blood Pressure 126/58 L 143/79 H Pulse Oximetry 93 L 92 L 02/28/18 11:58 Temperature 98.2 F Pulse Rate 84 Respiratory Rate 18 Blood Pressure 104/61 Pulse Oximetry 95 Intake & Output 02/27/18 02/28/18 02/28/18 18:59 06:59 18:59 Intake Total 0 / 0 Output Total 3100 / 3100 Balance -3100 / -3100 0 / 0 Weight 81.6 kg Intake: Oral 0 / 0 Output: Urine 100 / 100 Hemodialysis Amount 3000 / 3000 Other: # Voids 0 Date of Last Bowel Movement 02/24/18 Narrative: GENERAL: Alert and oriented. SKIN: Warm and dry. Left foot with chronic appearing wound CHEST: HD catheter left IJ. HEART: Regular rate and rhythm. LUNGS: Lungs are clear and equal bilaterally. ABDOMEN: Soft with positive bowel sounds. Non tender EXTREMITIES: Normal range of motion. PSYCH: Appropriate mood and affect. Results - Labs CBC & Chem 7: 02/28/18 04:40 02/28/18 04:40 Laboratory Results - last 24 hr 02/27/18 02/27/18 02/28/18 16:40 21:41 04:40 WBC 6.9 RBC 2.72 L Hgb 7.9 L Hct 24.1 L MCV 88.4 MCH 29.2 MCHC 33.0 RDW 15.6 Plt Count 281 MPV 7.5 Sodium Potassium Chloride Carbon Dioxide Anion Gap BUN Creatinine Estimated GFR POC Glucose 254 H 168 H Random Glucose Calcium Prot Corrected Calcium Total Protein 02/28/18 02/28/18 02/28/18 04:40 08:07 12:50 WBC RBC Hgb Hct MCV MCH MCHC RDW Plt Count MPV Sodium 139 Potassium 3.1 L Chloride 102 Carbon Dioxide 26.8 Anion Gap 10 BUN 34 H Creatinine 4.32 H Estimated GFR 16 L POC Glucose 248 H 124 H Random Glucose 237 H Calcium 7.4 L* Prot Corrected Calcium 8.6 Total Protein 4.9 L - Procedures RIGHT SIDE HD CATHETER PLACEMENT HD Assessment and Plan - Assessment (1) Diabetes type 1, uncontrolled Code(s): E10.65 - Type 1 diabetes mellitus with hyperglycemia Status: Acute (2) Hypertension Code(s): I10 - Essential (primary) hypertension Status: Chronic (3) End stage renal disease on dialysis Code(s): N18.6 - End stage renal disease; Z99.2 - Dependence on renal dialysis Status: Chronic (4) Anemia Code(s): D64.9 - Anemia, unspecified Status: Chronic - Plan 37 year old male with history of IDDM, HTN, DVT on Eliquis, 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 1. DKA - resolved - Patient is a brittle diabetic with dietary noncompliance - On admission, patient had ABG with pH 6.95, AG 33, and glucose 831 with associated Kussmaul breathing and renal failure - S/P insulin drip and DKA protocol 2. Type 1 DM - A1c 8.5 - Acid Loader was following and his insulin pump was adjusted. Unfortunately , his pump came out too and I was informed by RN that endocrine is no longer coming to the hospital. Insulin pump has now been reinserted and functionally at this time. -At this time will stop patient's Levemir and preprandial scheduled insulin. Patient will adjust insulin pump based on blood sugar trends and carbohydrate intake. 3. HCAP - resolved - CXR 02/09 right infiltrate - S/p vancomycin and aztreonam - Repeat CXR 02/15 with no acute cardiopulmonary disease - Repeat CXR 02/26 showing some bibasilar airspace disease and in this clinical setting I believe it is atelectasis as the patient has been laying around and he has been afebrile with no leukocytosis - Incentive spirometer - Supplemental O2 to maintain sats >92% - Monitor for signs of infection 4. ESRD - Nephrology following - Fistula in place however not yet mature. Permacath placed 02/20 - Outpatient chair time has been arranged MWF - Avoid nephrotoxins - Percocet PRN for pain at Permacath site 5. Hematochezia - GI consulted - S/P EGD/colonoscopy on 02/16. EGD was normal except irregular Z line biopsy was done. Colonoscopy showed multiple polyps, 1 of them was flat and large which could be a reason for bleeding. S/P polypectomy - Recommendations to repeat colonoscopy in 3 months, okay to discharge from GI standpoint - Monitor CBC while on Eliquis 6. Hypokalemia, mild - Managed with HD 7. History of DVT - Continue Eliquis 8. HTN, chronic essential -Blood pressures much better improved - Continue amlodipine, at max dose - Hydralazine increased to to 100 mg TID - Started metoprolol 25 mg BID (HR in the 90-100s) - Clonidine PRN 9. Anemia of chronic kidney disease - Iron studies suggest combination of anemia of chronic disease and iron deficiency - Hemodynamically stable - Continue to monitor - Epogen with dialysis 10. L Heel wound - Appears chronic, not acutely infected or significantly draining - Wound care nurse consulted * Cleanse left lateral heel wound with NS Q3D and PRN for saturation or dislodgement * Apply Cavilon skin barrier film to periwound and allow to dry * Place Optifoam AG over wound bed and secure with dry cover and date dressing. * Keep heel elevated off mattress surface at all times 11. R wrist pain - XR showing subacute fracture involving the distal third of the ulna - Ortho consulted no further intervention, no need for splint or cast - Analgesics PRN - Continue Lyrica Patient with multiple comorbid conditions as described above and poor social situation. PT recommending long-term placement. DVT prophylaxis: on Eliquis Discharge Planning: information technology project manager assisted with long-term placement. (1) Diabetes type 1, uncontrolled Qualifiers: Diabetes mellitus complication detail: with diabetic retinopathy
[2018-02-28] MEDS: Furosemide 40 MG Tablet PO SCH (14:17)
[2018-03-01] MEDS: Insulin NovoLOG Aspart Correctional Sugar Inj SQ SCH ×5 (04:27→20:26)
[2018-03-01 07:00] LABS: Albumin 2.1 g/dL (3.4-5.0); Calcium 7.8 mg/dL (8.5-10.1); Carbon Dioxide 24.4 meq/L (21.0-32.0); Phosphorus 5.6 mg/dL (2.5-4.9); Potassium 3.4 meq/L (3.5-5.1)
[2018-03-01 07:04] LABS: % Iron Saturation 7.6 % (20-50)
[2018-03-01] MEDS: Furosemide 40 MG Tablet PO SCH (09:35)
[2018-03-01] MEDS: Metoprolol Tartrate 25 MG Tablet PO SCH ×2 (09:35→20:24)
[2018-03-01] MEDS: Pantoprazole Inj 40 MG Vial IV.PUSH SCH (09:35)
[2018-03-01] MEDS: Senna/Docusate Sodium 8.6/50 MG Tablet PO SCH ×2 (09:35→20:24)
[2018-03-01] MEDS: Calcitriol 0.25 MCG Capsule PO SCH (09:35)
[2018-03-01] MEDS: amLODIPine 5 MG Tablet PO SCH (09:35)
[2018-03-01] MEDS: Loratadine 10 MG Tablet PO SCH (09:35)
[2018-03-01] MEDS: Topiramate 25 MG Tablet PO SCH ×2 (09:36→13:21)
[2018-03-01] MEDS: Sertraline 100 MG Tablet PO SCH ×2 (09:36→13:20)
--- NOTE | 2018-03-01 10:36 | P.PNNP ---
Subjective Interval history: Seen during hemodialysis tolerating well. Reports feeling bloated. Bilateral lower extremity edema. <Jazlyn De Anda - Last Filed: 03/01/18 15:20> Physical Exam Vital signs: Vital Signs 02/28/18 11:58 02/28/18 16:00 02/28/18 20:00 Temperature 98.2 F 97.6 F 97.5 F L Pulse Rate 84 82 85 Respiratory Rate 18 18 17 Blood Pressure 104/61 136/82 129/73 Pulse Oximetry 95 93 L 94 L 03/01/18 00:00 03/01/18 04:49 03/01/18 08:00 Temperature 98.7 F 98.5 F Pulse Rate 85 88 Respiratory Rate 17 18 16 Blood Pressure 121/66 137/76 Pulse Oximetry 93 L 94 L Intake & Output 02/28/18 03/01/18 03/01/18 18:59 06:59 18:59 Intake Total 1200 / 1200 Output Total 1999 Balance -800 / -800 Weight 81.6 kg Intake: Oral 1200 / 1200 Output: Urine 1999 Other: # Voids 2 Date of Last Bowel Movement 02/24/18 02/27/18 Narrative: GENERAL: Alert and oriented. SKIN: Warm and dry. Left foot with chronic appearing wound CHEST: HD catheter left IJ. HEART: Heart regular. AVF in right wrist with positive thrill and bruit. Lower extremity edema. LUNGS: Lungs are clear and equal bilaterally. ABDOMEN: Soft with positive bowel sounds. Non tender EXTREMITIES: Normal range of motion. PSYCH: Appropriate mood and affect. <Jazlyn De Anda - Last Filed: 03/01/18 15:20> Vital signs: Vital Signs 03/01/18 00:00 03/01/18 04:49 03/01/18 08:00 Temperature 98.7 F 98.5 F Pulse Rate 85 88 Respiratory Rate 17 18 16 Blood Pressure 121/66 137/76 Pulse Oximetry 93 L 94 L 03/01/18 20:00 03/01/18 22:07 03/01/18 23:40 Temperature 98.6 F 98.3 F Pulse Rate 89 86 Respiratory Rate 17 16 17 Blood Pressure 136/80 128/74 Pulse Oximetry 93 L 96 Intake & Output 03/01/18 03/01/18 03/02/18 06:59 18:59 06:59 Intake Total 110 / 110 Output Total 3500 / 3500 Balance -3500 / -3500 110 / 110 Weight 81.6 kg Intake: IV 110 / 110 Venofer Inj 200 MG In NS Inj 110 / 110 100 ML @ 110 mls/hr IV.SIG DAILY JORDAN Rx#:[id number] Output: Urine 1500 / 1500 Hemodialysis Amount 1999 Other: # Voids 2 Date of Last Bowel Movement 02/27/18 02/27/18 <Bay Gifford - Last Filed: 03/01/18 23:46> Assessment and Plan - Assessment (1) End stage renal disease on dialysis Code(s): N18.6 - End stage renal disease; Z99.2 - Dependence on renal dialysis Status: Chronic Plan: Patient has End stage renal disease on HD now TTS. AVF is not ready yet, AVF need more time for maturation. Has EGD and Colonoscopy done on 02/16., results noted. PermCath 02/20 Continue Epogen with dialysis Continue tere Discussed fluid restriction Outpatient HD arranged/ [facility], 3:45pm chair time. Awaiting placement. Hemodialysis today with removal of 2 liters of fluid (2) DKA, type 1 Code(s): E10.10 - Type 1 diabetes mellitus with ketoacidosis without coma Status: Acute Qualifiers: Diabetes mellitus complication detail: without coma Qualified Code(s): E10.10 - Type 1 diabetes mellitus with ketoacidosis without coma Plan: Maintain blood sugars between 140 mg/dl to 180 mg/dl (3) Anemia Code(s): D64.9 - Anemia, unspecified Status: Chronic Plan: Hgb 7.9 from 8.6 Venofer ordered Epogen with dialysis (4) Hypertension Code(s): I10 - Essential (primary) hypertension Status: Acute Plan: Blood pressure better controlled, will monitor - Plan . <Jazlyn De Anda - Last Filed: 03/01/18 15:20> - Assessment (1) End stage renal disease on dialysis Code(s): N18.6 - End stage renal disease; Z99.2 - Dependence on renal dialysis Status: Chronic (2) DKA, type 1 Code(s): E10.10 - Type 1 diabetes mellitus with ketoacidosis without coma Status: Acute Qualifiers: Diabetes mellitus complication detail: without coma Qualified Code(s): E10.10 - Type 1 diabetes mellitus with ketoacidosis without coma (3) Anemia Code(s): D64.9 - Anemia, unspecified Status: Chronic (4) Hypertension Code(s): I10 - Essential (primary) hypertension Status: Acute - Attending Attestation Patient seen and examined, agree with above. HD done in AM. Awaiting placement. <Bay Gifford - Last Filed: 03/01/18 23:46>
[2018-03-01] MEDS: Heparin 10,000 UNITS/10 ML Vial (for IV use) OTHER PRN (12:24)
[2018-03-01] MEDS: Iron Sucrose Inj 200 MG in Sodium Chlor 0.9% Inj 100 ML IV.SIG SCH (17:10)
--- NOTE | 2018-03-01 17:21 | P.PNIM ---
Subjective Interval history: Patient just returned from dialysis, 2L removed, sleepy but denies any pain. 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 Physical Exam Vital signs: Vital Signs 02/28/18 20:00 03/01/18 00:00 03/01/18 04:49 Temperature 97.5 F L 98.7 F Pulse Rate 85 85 Respiratory Rate 17 17 18 Blood Pressure 129/73 121/66 Pulse Oximetry 94 L 93 L 03/01/18 08:00 Temperature 98.5 F Pulse Rate 88 Respiratory Rate 16 Blood Pressure 137/76 Pulse Oximetry 94 L Intake & Output 02/28/18 03/01/18 03/01/18 18:59 06:59 18:59 Intake Total 1200 / 1200 Output Total 1999 Balance -800 / -800 -1999 Weight 81.6 kg Intake: Oral 1200 / 1200 Output: Urine 1999 Hemodialysis Amount 1999 Other: # Voids 2 Date of Last Bowel Movement 02/24/18 02/27/18 02/27/18 Narrative: GENERAL: Alert and oriented. Sleepy from dialysis SKIN: Warm and dry. Left foot with chronic appearing wound CHEST: HD catheter left IJ. HEART: Heart regular. AVF in right wrist with positive thrill and bruit. Lower extremity edema. LUNGS: Lungs are clear and equal bilaterally. ABDOMEN: Soft with positive bowel sounds. Non tender EXTREMITIES: Normal range of motion. PSYCH: Appropriate mood and affect. Results - Labs CBC & Chem 7: 02/28/18 04:40 03/01/18 05:31 Laboratory Results - last 24 hr 02/28/18 03/01/18 03/01/18 21:25 05:31 09:13 Sodium 137 Potassium 3.4 L Chloride 102 Carbon Dioxide 24.4 Anion Gap 11 BUN 43 H Creatinine 5.24 H Estimated GFR 13 L POC Glucose 160 H 170 H Random Glucose 139 H Calcium 7.8 L Phosphorus 5.6 H Iron 22 L TIBC 288 % Saturation 7.6 L Ferritin 25 L Albumin 2.1 L 03/01/18 03/01/18 12:13 15:02 Sodium Potassium Chloride Carbon Dioxide Anion Gap BUN Creatinine Estimated GFR POC Glucose 115 H 201 H Random Glucose Calcium Phosphorus Iron TIBC % Saturation Ferritin Albumin - Procedures RIGHT SIDE HD CATHETER PLACEMENT HD Assessment and Plan - Assessment (1) Diabetes type 1, uncontrolled Code(s): E10.65 - Type 1 diabetes mellitus with hyperglycemia Status: Acute (2) Hypertension Code(s): I10 - Essential (primary) hypertension Status: Chronic (3) End stage renal disease on dialysis Code(s): N18.6 - End stage renal disease; Z99.2 - Dependence on renal dialysis Status: Chronic (4) Anemia Code(s): D64.9 - Anemia, unspecified Status: Chronic - Plan 37 year old male with history of IDDM, HTN, DVT on Eliquis, 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 1. DKA - resolved - Patient is a brittle diabetic with dietary noncompliance - On admission, patient had ABG with pH 6.95, AG 33, and glucose 831 with associated Kussmaul breathing and renal failure - S/P insulin drip and DKA protocol 2. Type 1 DM - A1c 8.5 - Power Cleaner Operator was following and his insulin pump was adjusted. Unfortunately , his pump came out too and I was informed by RN that endocrine is no longer coming to the hospital. Insulin pump has now been reinserted and functionally at this time. -At this time will stop patient's Levemir and preprandial scheduled insulin. Patient will adjust insulin pump based on blood sugar trends and carbohydrate intake. 3. HCAP - resolved - CXR 02/09 right infiltrate - S/p vancomycin and aztreonam - Repeat CXR 02/15 with no acute cardiopulmonary disease - Repeat CXR 02/26 showing some bibasilar airspace disease and in this clinical setting I believe it is atelectasis as the patient has been laying around and he has been afebrile with no leukocytosis - Incentive spirometer - Supplemental O2 to maintain sats >92% - Monitor for signs of infection 4. ESRD - Nephrology following - Fistula in place however not yet mature. Permacath placed 02/20 - Outpatient chair time has been arranged MWF - Avoid nephrotoxins - Percocet PRN for pain at Permacath site 5. Hematochezia, resolved - GI consulted - S/P EGD/colonoscopy on 02/16. EGD was normal except irregular Z line biopsy was done. Colonoscopy showed multiple polyps, 1 of them was flat and large which could be a reason for bleeding. S/P polypectomy - Recommendations to repeat colonoscopy in 3 months, okay to discharge from GI standpoint - Monitor CBC while on Eliquis 6. Hypokalemia, mild - Managed with HD 7. History of DVT - Continue Eliquis 8. HTN, chronic essential -Blood pressures much better improved - Continue amlodipine, at max dose - Hydralazine increased to to 100 mg TID - Cont metoprolol 25 mg BID (HR in the 90-100s) - Clonidine PRN 9. Anemia of chronic kidney disease - Iron studies suggest combination of anemia of chronic disease and iron deficiency - Hemodynamically stable - Continue to monitor - Epogen with dialysis 10. L Heel wound - Appears chronic, not acutely infected or significantly draining - Wound care nurse consulted * Cleanse left lateral heel wound with NS Q3D and PRN for saturation or dislodgement * Apply Cavilon skin barrier film to periwound and allow to dry * Place Optifoam AG over wound bed and secure with dry cover and date dressing. * Keep heel elevated off mattress surface at all times 11. R wrist pain - XR showing subacute fracture involving the distal third of the ulna - Ortho consulted no further intervention, no need for splint or cast - Analgesics PRN - Continue Lyrica Patient with multiple comorbid conditions as described above and poor social situation. PT recommending long-term placement. 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
[2018-03-02 06:54] LABS: Baso % (Auto) 0.9 % (0.0-2.0); Eos # (Auto) 0.1 th/mm3 (0.0-0.4); Eos % (Auto) 2.1 % (0.0-4.0); Hematocrit 23.8 % (39.0-51.0); Hemoglobin 7.9 gm/dL (13.0-17.0); Lymph # (Auto) 1.3 th/mm3 (1.0-4.8); Lymph % (Auto) 25.9 % (9.0-44.0); Mean Corpuscular Volume 87.9 fL (80.0-100.0); Mean Platelet Volume 7.6 fL (7.0-11.0); Mono # (Auto) 0.5 th/mm3 (0.0-0.9); Mono % (Auto) 9.7 % (0.0-8.0); Neut # (Auto) 3.1 th/mm3 (1.8-7.7); Neut % (Auto) 61.4 % (16.0-70.0); Platelet Count 270 th/mm3 (150-450); Red Blood Count 2.71 mil/mm3 (4.50-5.90); Red Cell Distribution Width 15.3 % (11.6-17.2)
[2018-03-02 07:20] LABS: Calcium 7.4 mg/dL (8.5-10.1); Potassium 3.3 meq/L (3.5-5.1)
[2018-03-02 07:52] LABS: Total Protein 4.9 g/dL (6.4-8.2)
[2018-03-02] MEDS: Insulin NovoLOG Aspart Correctional Sugar Inj SQ SCH ×4 (09:43→20:38)
[2018-03-02] MEDS: Metoprolol Tartrate 25 MG Tablet PO SCH ×2 (09:44→20:40)
[2018-03-02] MEDS: Senna/Docusate Sodium 8.6/50 MG Tablet PO SCH ×2 (09:44→20:40)
[2018-03-02] MEDS: Pantoprazole Inj 40 MG Vial IV.PUSH SCH (09:44)
[2018-03-02] MEDS: Loratadine 10 MG Tablet PO SCH (09:44)
[2018-03-02] MEDS: Furosemide 40 MG Tablet PO SCH (09:44)
[2018-03-02] MEDS: amLODIPine 5 MG Tablet PO SCH (09:45)
[2018-03-02] MEDS: Calcitriol 0.25 MCG Capsule PO SCH (09:45)
[2018-03-02] MEDS: Topiramate 25 MG Tablet PO SCH (09:45)
[2018-03-02] MEDS: Sertraline 100 MG Tablet PO SCH (09:45)
[2018-03-02] MEDS: Iron Sucrose Inj 200 MG in Sodium Chlor 0.9% Inj 100 ML IV.SIG SCH (09:56)
--- NOTE | 2018-03-02 11:08 | P.PN ---
Subjective Interval history: Follow up DKA - resolved, DM, HCAP s/p vanco and aztreonam, ESRD now on HD, diabetic retinopathy and left heel wound Patient offers no new concerns/complaints Physical Exam Vital signs: Vital Signs 03/01/18 20:00 03/01/18 22:07 03/01/18 23:40 Temperature 98.6 F 98.3 F Pulse Rate 89 86 Respiratory Rate 17 16 17 Blood Pressure 136/80 128/74 Pulse Oximetry 93 L 96 03/02/18 02:44 03/02/18 04:00 03/02/18 08:00 Temperature 98.6 F 85.5 F L Pulse Rate 87 86 Respiratory Rate 18 17 17 Blood Pressure 144/80 H 132/73 Pulse Oximetry 94 L 96 Intake & Output 03/01/18 03/02/18 03/02/18 18:59 06:59 18:59 Intake Total 110 / 110 Output Total 3500 / 3500 Balance -3500 / -3500 109 / 109 Weight 81.6 kg Intake: IV 110 / 110 Venofer Inj 200 MG In NS Inj 110 / 110 100 ML @ 110 mls/hr IV.SIG DAILY [facility] Rx#:[id number] Output: Urine 1500 / 1500 Hemodialysis Amount 1999 Other: Date of Last Bowel Movement 02/27/18 02/28/18 Narrative: GENERAL: Alert and oriented. in no acute distress SKIN: Warm and dry. Left foot with chronic appearing wound CHEST: HD catheter left IJ. HEART: Heart regular. AVF in right wrist with positive thrill and bruit. bilateral 1+ Lower extremity edema. LUNGS: Lungs are clear and equal bilaterally. ABDOMEN: Soft with normoactive bowel sounds. Non tender EXTREMITIES: Normal range of motion. PSYCH: Appropriate mood and affect. Results - Labs CBC & Chem 7: 03/02/18 06:06 03/02/18 06:06 Laboratory Results - last 24 hr 03/01/18 03/01/18 03/01/18 12:13 15:02 17:18 WBC RBC Hgb Hct MCV MCH MCHC RDW Plt Count MPV Neut % (Auto) Lymph % (Auto) [place] % (Auto) Eos % (Auto) Baso % (Auto) Neut # (Auto) Lymph # (Auto) [place] # (Auto) Eos # (Auto) Baso # (Auto) WBC Differential Differential Comment Sodium Potassium Chloride Carbon Dioxide Anion Gap BUN Creatinine Estimated GFR POC Glucose 115 H 201 H 194 H Random Glucose Calcium Prot Corrected Calcium Total Protein 03/01/18 03/02/18 03/02/18 20:24 06:06 06:06 WBC 5.0 RBC 2.71 L Hgb 7.9 L Hct 23.8 L MCV 87.9 MCH 29.0 MCHC 33.0 RDW 15.3 Plt Count 270 MPV 7.6 Neut % (Auto) 61.4 Lymph % (Auto) 25.9 Navarro % (Auto) 9.7 H Eos % (Auto) 2.1 Baso % (Auto) 0.9 Neut # (Auto) 3.1 Lymph # (Auto) 1.3 [place] # (Auto) 0.5 Eos # (Auto) 0.1 Baso # (Auto) 0.0 WBC Differential . 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 1. DKA - resolved - Patient is a brittle diabetic with dietary noncompliance - On admission, patient had ABG with pH 6.95, AG 33, and glucose 831 with associated Kussmaul breathing and renal failure - S/P insulin drip and DKA protocol 2. Type 1 DM - A1c 8.5 - Tight Barrel Inspector was following and his insulin pump was adjusted. Unfortunately , his pump came out too and I was informed by RN that endocrine is no longer coming to the hospital. Insulin pump is in place and functionally at this time. -patient's Levemir and preprandial scheduled insulin was stopped. Patient will adjust insulin pump based on blood sugar trends and carbohydrate intake. 3. HCAP - resolved - CXR 02/09 right infiltrate - S/p vancomycin and aztreonam - Repeat CXR 02/15 with no acute cardiopulmonary disease - Repeat CXR 02/26 showing some bibasilar airspace disease and in this clinical setting, It is believed to be atelectasis, patient afebrile with no leukocytosis - Incentive spirometer - Supplemental O2 to maintain sats >92% - Monitor for signs of infection 4. ESRD - Nephrology following - Fistula in place however not yet mature. Permacath placed 02/20 - Outpatient chair time has been arranged MWF - Avoid nephrotoxins 5. Hematochezia, resolved - GI consulted - S/P EGD/colonoscopy on 02/16. EGD was normal except irregular Z line biopsy was done. Colonoscopy showed multiple polyps, 1 of them was flat and large which could be a reason for bleeding. S/P polypectomy - Recommendations to repeat colonoscopy in 3 months, okay to discharge from GI standpoint - Monitor CBC while on Eliquis 6. Hypokalemia, mild - Managed with HD 7. History of DVT - Continue Eliquis 8. HTN, chronic essential -Blood pressures much better improved - Continue amlodipine, at max dose - Hydralazine increased to to 100 mg TID - Cont metoprolol 25 mg BID (HR in the 90-100s) - Clonidine PRN 9. Anemia of chronic kidney disease - Iron studies suggest combination of anemia of chronic disease and iron deficiency - Hemodynamically stable - Continue to monitor - Epogen with dialysis 10. L Heel wound - Appears chronic, not acutely infected or significantly draining - Wound care nurse consulted * Cleanse left lateral heel wound with NS Q3D and PRN for saturation or dislodgement * Apply Cavilon skin barrier film to periwound and allow to dry * Place Optifoam AG over wound bed and secure with dry cover and date dressing. * Keep heel elevated off mattress surface at all times 11. R wrist pain - XR showing subacute fracture involving the distal third of the ulna - Ortho consulted no further intervention, no need for splint or cast - Analgesics PRN - Continue Lyrica Patient with multiple comorbid conditions as described above and poor social situation. PT recommending long-term placement. DVT prophylaxis: on Eliquis Awaiting placement for DC Discussed with patient and supervising physician Dr. Larose
--- NOTE | 2018-03-02 13:05 | P.PNNP ---
Subjective Interval history: Sitting up in chair. PT today. Hemodialysis yesterday tolerated well. <Jazlyn De Anda - Last Filed: 03/02/18 13:02> Physical Exam Vital signs: Vital Signs 03/01/18 20:00 03/01/18 22:07 03/01/18 23:40 Temperature 98.6 F 98.3 F Pulse Rate 89 86 Respiratory Rate 17 16 17 Blood Pressure 136/80 128/74 Pulse Oximetry 93 L 96 03/02/18 02:44 03/02/18 04:00 03/02/18 08:00 Temperature 98.6 F 85.5 F L Pulse Rate 87 86 Respiratory Rate 18 17 17 Blood Pressure 144/80 H 132/73 Pulse Oximetry 94 L 96 Intake & Output 03/01/18 03/02/18 03/02/18 18:59 06:59 18:59 Intake Total 110 / 110 Output Total 3500 / 3500 Balance -3500 / -3500 109 / 109 Weight 81.6 kg Intake: IV 110 / 110 Venofer Inj 200 MG In NS Inj 110 / 110 100 ML @ 110 mls/hr IV.SIG DAILY [facility] Rx#:[id number] Output: Urine 1500 / 1500 Hemodialysis Amount 1999 Other: Date of Last Bowel Movement 02/27/18 02/28/18 Narrative: GENERAL: Alert and oriented. in no acute distress SKIN: Warm and dry. Left foot with chronic appearing wound CHEST: HD catheter left IJ. HEART: Heart regular. AVF in right wrist with positive thrill and bruit. bilateral 1+ Lower extremity edema. LUNGS: Lungs are clear and equal bilaterally. ABDOMEN: Soft with normoactive bowel sounds. Non tender EXTREMITIES: Normal range of motion. PSYCH: Appropriate mood and affect. <Jazlyn De Anda - Last Filed: 03/02/18 13:02> Assessment and Plan - Assessment (1) End stage renal disease on dialysis Code(s): N18.6 - End stage renal disease; Z99.2 - Dependence on renal dialysis Status: Chronic Plan: Patient has End stage renal disease on HD now TTS. AVF is not ready yet, AVF need more time for maturation. Has EGD and Colonoscopy done on 02/16., results noted. PermCath 02/20 Continue Epogen with dialysis Continue lasix Discussed fluid restriction Outpatient HD arranged/ [facility], 3:45pm chair time. Awaiting placement. Hemodialysis yesterday tolerated well, hemodialysis tomorrow. (2) DKA, type 1 Code(s): E10.10 - Type 1 diabetes mellitus with ketoacidosis without coma Status: Acute Qualifiers: Diabetes mellitus complication detail: without coma Qualified Code(s): E10.10 - Type 1 diabetes mellitus with ketoacidosis without coma Plan: Maintain blood sugars between 140 mg/dl to 180 mg/dl (3) Anemia Code(s): D64.9 - Anemia, unspecified Status: Chronic Plan: Hgb 7.9 from 8.6 Venofer ordered Epogen with dialysis (4) Hypertension Code(s): I10 - Essential (primary) hypertension Status: Acute Plan: Blood pressure better controlled, will monitor <Jazlyn De Anda - Last Filed: 03/02/18 13:02> - Assessment (1) Chronic kidney disease, stage 4, severely decreased GFR Code(s): N18.4 - Chronic kidney disease, stage 4 (severe) Status: Acute Plan: Patient seen and examined, agree with above. Has been on HD. BP is stable now. Follow Hgb, on Epogen. Out patient HD arranged, possible placement. <Bay Gifford - Last Filed: 04/12/18 09:34>
[2018-03-03 06:31] LABS: Hematocrit 25.1 % (39.0-51.0); Hemoglobin 8.1 gm/dL (13.0-17.0); Mean Corpuscular HGB Conc 32.1 % (32.0-36.0); Mean Corpuscular Hemoglobin 28.3 pg (27.0-34.0); Mean Corpuscular Volume 88.1 fL (80.0-100.0); Mean Platelet Volume 7.8 fL (7.0-11.0); Platelet Count 278 th/mm3 (150-450); Red Blood Count 2.86 mil/mm3 (4.50-5.90); Red Cell Distribution Width 15.3 % (11.6-17.2); White Blood Count 5.3 th/mm3 (4.0-11.0)
[2018-03-03 06:34] LABS: Calcium 7.4 mg/dL (8.5-10.1); Carbon Dioxide 27.1 meq/L (21.0-32.0); Potassium 3.4 meq/L (3.5-5.1)
[2018-03-03 07:11] LABS: Total Protein 4.8 g/dL (6.4-8.2)
[2018-03-03] MEDS: Insulin NovoLOG Aspart Correctional Sugar Inj SQ SCH ×4 (08:25→20:42)
[2018-03-03 08:57] LABS: Eosinophils 2 % (0-4); Lymphocytes 23 % (9-44); Monocytes 8 % (0-8); Platelet Estimate Normal (Normal); Platelet Morphology Normal (Normal)
--- NOTE | 2018-03-03 10:15 | P.PNNP ---
Subjective Interval history: patient was seen during dialysis. Tolerating it well. Dialysis proceedings reviewed with the tin pourer. Patient was examined. UF is 3 liters. BFR is 350 ml. Physical Exam Vital signs: Vital Signs 03/02/18 12:00 03/02/18 12:07 03/02/18 16:00 Temperature 98.2 F 98.4 F Pulse Rate 82 81 Respiratory Rate 16 18 16 Blood Pressure 145/81 H 117/68 Pulse Oximetry 95 94 L 03/02/18 19:04 03/02/18 20:00 03/03/18 00:00 Temperature 98.4 F 98.3 F Pulse Rate 86 88 Respiratory Rate 18 19 17 Blood Pressure 116/61 125/71 Pulse Oximetry 96 96 03/03/18 08:00 Temperature 98.3 F Pulse Rate 83 Respiratory Rate 17 Blood Pressure 134/76 Pulse Oximetry 93 L Intake & Output 03/02/18 03/03/18 03/03/18 18:59 06:59 18:59 Intake Total 110 / 110 Balance 110 / 110 Weight 82 kg Intake: IV 110 / 110 Venofer Inj 200 MG In NS Inj 110 / 110 100 ML @ 110 mls/hr IV.SIG DAILY [facility] Rx#:[id number] Other: Date of Last Bowel Movement 02/28/18 - Constitutional no acute distress - Routine HEENT Exam Head: Present: normocephalic, atraumatic Eye: Present: EOMI, PERRL - Routine Neck Exam Present: supple. Absent: JVD - Routine Respiratory Exam Present: CTA bilaterally - Routine Cardiovascular Exam Present: RRR, S1, S2 - Routine Abdominal Exam Present: soft, normoactive bowel sounds - Routine Skin Exam Present: intact - Routine Neurological Exam Present: alert, oriented X3 Assessment and Plan - Assessment (1) End stage renal disease on dialysis Code(s): N18.6 - End stage renal disease; Z99.2 - Dependence on renal dialysis Status: Chronic Plan: Patient has End stage renal disease on HD now TTS. AVF is not ready yet, AVF need more time for maturation. Has EGD and Colonoscopy done on 02/16., results noted. PermCath 02/20 Continue Epogen with dialysis Continue lasix Discussed fluid restriction Outpatient HD arranged/ [facility], 3:45pm chair time. Awaiting placement. (2) DKA, type 1 Code(s): E10.10 - Type 1 diabetes mellitus with ketoacidosis without coma Status: Acute Qualifiers: Diabetes mellitus complication detail: without coma Qualified Code(s): E10.10 - Type 1 diabetes mellitus with ketoacidosis without coma Plan: Maintain blood sugars between 140 mg/dl to 180 mg/dl (3) Anemia Code(s): D64.9 - Anemia, unspecified Status: Chronic Plan: Venofer ordered Epogen with dialysis (4) Hypertension Code(s): I10 - Essential (primary) hypertension Status: Acute Plan: Blood pressure better controlled, will monitor - Plan .
[2018-03-03] MEDS: Furosemide 40 MG Tablet PO SCH (12:17)
[2018-03-03] MEDS: amLODIPine 5 MG Tablet PO SCH (12:17)
[2018-03-03] MEDS: Calcitriol 0.25 MCG Capsule PO SCH (12:17)
[2018-03-03] MEDS: Sertraline 100 MG Tablet PO SCH (12:18)
[2018-03-03] MEDS: Topiramate 25 MG Tablet PO SCH (12:18)
[2018-03-03] MEDS: Loratadine 10 MG Tablet PO SCH (12:18)
[2018-03-03] MEDS: Senna/Docusate Sodium 8.6/50 MG Tablet PO SCH ×2 (12:18→20:48)
[2018-03-03] MEDS: Metoprolol Tartrate 25 MG Tablet PO SCH ×2 (12:19→20:48)
[2018-03-03] MEDS: Iron Sucrose Inj 200 MG in Sodium Chlor 0.9% Inj 100 ML IV.SIG SCH (12:20)
[2018-03-03] MEDS: Pantoprazole Inj 40 MG Vial IV.PUSH SCH (12:21)
--- NOTE | 2018-03-03 13:47 | P.PN ---
Subjective Interval history: Follow up DKA/ESRD on HD 03/03/18-Patient seen and examined during HD, no acute event overnight. Stable Physical Exam Vital signs: Vital Signs 03/02/18 16:00 03/02/18 19:04 03/02/18 20:00 Temperature 98.4 F 98.4 F Pulse Rate 81 86 Respiratory Rate 16 18 19 Blood Pressure 117/68 116/61 Pulse Oximetry 94 L 96 03/03/18 00:00 03/03/18 08:00 Temperature 98.3 F 98.3 F Pulse Rate 88 83 Respiratory Rate 17 17 Blood Pressure 125/71 134/76 Pulse Oximetry 96 93 L Intake & Output 03/02/18 03/03/18 03/03/18 18:59 06:59 18:59 Intake Total 110 / 110 Output Total 2700 / 2700 Balance 110 / 110 -2700 / -2700 Weight 82 kg Intake: IV 110 / 110 Venofer Inj 200 MG In NS Inj 110 / 110 100 ML @ 110 mls/hr IV.SIG DAILY [facility] Rx#:[id number] Output: Hemodialysis Amount 2700 / 2700 Other: Date of Last Bowel Movement 02/28/18 Narrative: GENERAL: Alert and oriented. in no acute distress SKIN: Warm and dry. Left foot with chronic appearing wound CHEST: HD catheter left IJ. HEART: Heart regular. AVF in right wrist with positive thrill and bruit. bilateral 1+ Lower extremity edema. LUNGS: Lungs are clear and equal bilaterally. ABDOMEN: Soft with normoactive bowel sounds. Non tender EXTREMITIES: Normal range of motion. Results - Labs CBC & Chem 7: 03/03/18 05:28 03/03/18 05:28 Laboratory Results - last 24 hr 03/02/18 03/02/18 03/03/18 18:31 20:29 05:28 WBC 5.3 RBC 2.86 L Hgb 8.1 L Hct 25.1 L MCV 88.1 MCH 28.3 MCHC 32.1 RDW 15.3 Plt Count 278 MPV 7.8 Prelim Diff (Auto) Manual diff required WBC Differential Manual diff final Seg Neuts % (Manual) 66 Band Neuts % (Manual) 1 Lymphocytes % (Manual) 23 Monocytes % (Manual) 8 Eosinophils % (Manual) 2 Abs Neuts (Manual) 3.6 Differential Comment . Platelet Estimate Normal Platelet Morphology Normal Sodium Potassium Chloride Carbon Dioxide Anion Gap BUN Creatinine Estimated GFR POC Glucose 183 H 168 H Random Glucose Calcium Prot Corrected Calcium Total Protein 03/03/18 03/03/18 03/03/18 05:28 08:13 11:14 WBC RBC Hgb Hct MCV MCH MCHC RDW Plt Count MPV Prelim Diff (Auto) WBC Differential Seg Neuts % (Manual) Band Neuts % (Manual) Lymphocytes % (Manual) Monocytes % (Manual) Eosinophils % (Manual) Abs Neuts (Manual) Differential Comment Platelet Estimate Platelet Morphology Sodium 142 Potassium 3.4 L Chloride 106 Carbon Dioxide 27.1 Anion Gap 9 BUN 37 H Creatinine 4.81 H Estimated GFR 14 L POC Glucose 160 H 98 Random Glucose 203 H Calcium 7.4 L* Prot Corrected Calcium 8.7 Total Protein 4.8 L - Procedures RIGHT SIDE HD CATHETER PLACEMENT HD Assessment and Plan - Assessment (1) Diabetes type 1, uncontrolled Code(s): E10.65 - Type 1 diabetes mellitus with hyperglycemia Status: Acute (2) Hypertension Code(s): I10 - Essential (primary) hypertension Status: Chronic (3) End stage renal disease on dialysis Code(s): N18.6 - End stage renal disease; Z99.2 - Dependence on renal dialysis Status: Chronic (4) Anemia Code(s): D64.9 - Anemia, unspecified Status: Chronic - Plan 37 years old man with 1. DKA - resolved - S/P insulin drip and DKA protocol 2. Type 1 DM - A1c 8.5 - Insulin pump is in place and functionally at this time. -patient's Levemir and preprandial scheduled insulin was stopped. Patient will adjust insulin pump based on blood sugar trends and carbohydrate intake. 3. HCAP - resolved - CXR 02/09 right infiltrate - S/p vancomycin and aztreonam - Repeat CXR 02/15 with no acute cardiopulmonary disease - Repeat CXR 02/26 showing some bibasilar airspace disease and in this clinical setting, It is believed to be atelectasis, patient afebrile with no leukocytosis - Incentive spirometer - Supplemental O2 to maintain sats >92% - Monitor for signs of infection 4. ESRD - Nephrology following - Fistula in place however not yet mature. Permacath placed 02/20 - Outpatient chair time has been arranged MWF - Avoid nephrotoxins 5. Hematochezia, resolved - GI consulted - S/P EGD/colonoscopy on 02/16. EGD was normal except irregular Z line biopsy was done. Colonoscopy showed multiple polyps, 1 of them was flat and large which could be a reason for bleeding. S/P polypectomy - Recommendations to repeat colonoscopy in 3 months, okay to discharge from GI standpoint - Monitor CBC while on Eliquis 6. Hypokalemia, mild - Managed with HD 7. History of DVT - Continue Eliquis 8. HTN, chronic essential - Continue amlodipine - Hydralazine 100 mg TID - Cont metoprolol 25 mg BID (HR in the 90-100s) - Clonidine PRN 9. Anemia of chronic kidney disease - Iron studies suggest combination of anemia of chronic disease and iron deficiency - Hemodynamically stable - Continue to monitor - Epogen with dialysis 10. L Heel wound - Appears chronic, not acutely infected or significantly draining - Wound care nurse consulted * Cleanse left lateral heel wound with NS Q3D and PRN for saturation or dislodgement * Apply Cavilon skin barrier film to periwound and allow to dry * Place Optifoam AG over wound bed and secure with dry cover and date dressing. * Keep heel elevated off mattress surface at all times 11. R wrist pain - XR showing subacute fracture involving the distal third of the ulna - Ortho consulted no further intervention, no need for splint or cast - Analgesics PRN - Continue Lyrica Patient with multiple comorbid conditions as described above and poor social situation. PT recommending long-term placement. DVT prophylaxis: on Eliquis Awaiting placement for DC (1) Diabetes type 1, uncontrolled Qualifiers: Diabetes mellitus complication detail: with diabetic retinopathy
[2018-03-04] MEDS: Topiramate 25 MG Tablet PO SCH (09:22)
[2018-03-04] MEDS: amLODIPine 5 MG Tablet PO SCH (09:22)
[2018-03-04] MEDS: Calcitriol 0.25 MCG Capsule PO SCH (09:23)
[2018-03-04] MEDS: Senna/Docusate Sodium 8.6/50 MG Tablet PO SCH ×2 (09:23→20:46)
[2018-03-04] MEDS: Furosemide 40 MG Tablet PO SCH (09:23)
[2018-03-04] MEDS: Metoprolol Tartrate 25 MG Tablet PO SCH ×2 (09:23→20:46)
[2018-03-04] MEDS: Loratadine 10 MG Tablet PO SCH (09:23)
[2018-03-04] MEDS: Pantoprazole Inj 40 MG Vial IV.PUSH SCH (09:23)
[2018-03-04] MEDS: Sertraline 100 MG Tablet PO SCH (09:23)
[2018-03-04] MEDS: Insulin NovoLOG Aspart Correctional Sugar Inj SQ SCH ×4 (09:30→20:48)
--- NOTE | 2018-03-04 12:27 | P.PNIM ---
Subjective Interval history: Pt seen and examined for f/u DKA (resolved), DM, ESRD on HD, and poor social situation with need for fpc placement. Pt endorses some generalized myalgias the past 3-4 days as well as a hoarse voice. Endorses occasional dry cough. No fever, chills, sore throat, runny nose, or ear pain. Otherwise no complaints. Tolerating PO. No CP or SOB. Physical Exam Vital signs: Vital Signs 03/03/18 16:00 03/03/18 19:34 03/03/18 23:00 Temperature 97.8 F 98.3 F 98.5 F Pulse Rate 84 86 80 Respiratory Rate 18 18 18 Blood Pressure 121/68 126/68 119/71 Pulse Oximetry 94 L 97 98 03/04/18 08:00 03/04/18 12:00 Temperature 98.0 F 98.3 F Pulse Rate 64 79 Respiratory Rate 18 18 Blood Pressure 123/72 132/78 Pulse Oximetry 97 92 L Intake & Output 03/03/18 03/04/18 03/04/18 18:59 06:59 18:59 Intake Total 1200 / 1200 470 / 470 Output Total 4700 / 4700 Balance -3500 / -3500 470 / 470 Weight 82 kg Intake: IV 110 / 110 Oral 1200 / 1200 360 / 360 Output: Urine 2000 / 2000 Hemodialysis Amount 2700 / 2700 Other: # Voids 4 Date of Last Bowel Movement 03/01/18 03/01/18 # Bowel Movements 0 Narrative: GENERAL: male sitting in chair in NAD. SKIN: Warm and dry. HEENT: Voice is hoarse. No pharyngeal erythema or exudate. CHEST: Vascath L chest, no surrounding erythema. HEART: RRR with 1/6 AL. LUNGS: CTAB without wheezes or crackles. ABDOMEN: +BS, soft, NT, ND. EXTREMITIES: AVF R wrist with palpable bruit. L foot with chronic appearing, superficial wound of lateral heel. NEURO: Awake and alert. Nonfocal. PSYCH: Appropriate mood and affect. Results - Labs CBC & Chem 7: 03/03/18 05:28 03/03/18 05:28 Laboratory Results - last 24 hr 03/03/18 03/03/18 03/04/18 18:11 20:40 09:22 POC Glucose 241 H 189 H 269 H - Procedures RIGHT SIDE HD CATHETER PLACEMENT HD Assessment and Plan - Assessment (1) Diabetes type 1, uncontrolled Code(s): E10.65 - Type 1 diabetes mellitus with hyperglycemia Status: Acute (2) Hypertension Code(s): I10 - Essential (primary) hypertension Status: Chronic (3) End stage renal disease on dialysis Code(s): N18.6 - End stage renal disease; Z99.2 - Dependence on renal dialysis Status: Chronic (4) Anemia Code(s): D64.9 - Anemia, unspecified Status: Chronic - Plan 37 year old male with history of IDDM, HTN, DVT on Eliquis, 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 03/04: Will check influenza A/B for symptoms of myalgias and sore throat. Likely viral laryngitis. Supportive care 1. DKA - resolved - Patient is a brittle diabetic with dietary noncompliance - On admission, patient had ABG with pH 6.95, AG 33, and glucose 831 with associated Kussmaul breathing and renal failure - S/P insulin drip and DKA protocol 2. Type 1 DM - A1c 8.5 - Reversal Print Inspector was following and his insulin pump was adjusted - Endocrine no longer coming to hospital - Pt to continue managing insulin pump - Diabetic diet 3. HCAP - resolved - CXR 02/09 right infiltrate - S/p vancomycin and aztreonam - Repeat CXR 02/15 with no acute cardiopulmonary disease - Repeat CXR 02/26 showing some bibasilar airspace disease believed to be atelectasis - Lungs clear on exam and patient remains afebrile - Incentive spirometer - Supplemental O2 to maintain sats >92% - Monitor for signs of infection 4. ESRD - Nephrology following - Fistula in place however not yet mature. Permacath placed 02/20 - Outpatient chair time has been arranged MWF - Avoid nephrotoxins - Percocet PRN for pain at Permacath site 5. History of DVT - Continue Eliquis 6. HTN - BPs stable - Continue amlodipine, hydralazine, and metoprolol - Clonidine PRN 7. Anemia - Iron studies suggest combination of anemia of chronic disease and iron deficiency - Hemodynamically stable - Continue to monitor - Epogen with dialysis 8. L Heel wound - Appears chronic, not acutely infected or significantly draining - Wound care nurse consulted * Cleanse left lateral heel wound with NS Q3D and PRN for saturation or dislodgement * Apply Cavilon skin barrier film to periwound and allow to dry * Place Optifoam AG over wound bed and secure with dry cover and date dressing. * Keep heel elevated off mattress surface at all times 9. R wrist pain - XR showing subacute fracture involving the distal third of the ulna - Ortho consulted no further intervention, no need for splint or cast - Analgesics PRN - Continue Lyrica Patient with multiple comorbid conditions as described above and poor social situation. PT recommending long-term placement. D/W case management DVT prophylaxis: on Eliquis Discussed Condition With: Patient and inbound call center representative Planning: Case management working with placement (1) Diabetes type 1, uncontrolled Qualifiers: Diabetes mellitus complication detail: with diabetic retinopathy
--- NOTE | 2018-03-05 06:36 | P.PNOP ---
Subjective Interval history: He states that wrist has improved slightly no worsening symptoms Physical Exam Vital signs: Vital Signs 03/04/18 08:00 03/04/18 12:00 03/04/18 16:00 Temperature 98.0 F 98.3 F 98.1 F Pulse Rate 64 79 77 Respiratory Rate 18 18 18 Blood Pressure 123/72 132/78 125/72 Pulse Oximetry 97 92 L 94 L 03/04/18 20:08 03/04/18 23:18 Temperature 98.2 F 98.2 F Pulse Rate 78 77 Respiratory Rate 17 17 Blood Pressure 116/64 121/73 Pulse Oximetry 95 96 Intake & Output 03/04/18 03/04/18 03/05/18 06:59 18:59 06:59 Intake Total 470 / 470 350 / 350 720 / 720 Output Total 550 / 550 750 / 750 Balance 470 / 470 -200 / -200 -30 / -30 Weight 82 kg 82 kg Intake: IV 110 / 110 Oral 360 / 360 350 / 350 720 / 720 Output: Urine 550 / 550 750 / 750 Other: # Voids 4 3 Date of Last Bowel Movement 03/01/18 03/03/18 03/04/18 # Bowel Movements 0 1 0 Narrative: Right upper extremity: No pain with shoulder elbow range of motion. Mild tenderness of the distal radius. 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 He has intact sensation over the radial ulnar median nerve. Results - Labs CBC & Chem 7: 03/03/18 05:28 03/03/18 05:28 Laboratory Results - last 24 hr 03/04/18 03/04/18 03/04/18 09:22 12:59 17:55 POC Glucose 269 H 191 H 272 H 03/04/18 20:44 POC Glucose 245 H Microbiology 03/04/18 19:57 Nasal Wash Influenza Types A,B Antigen - Final Negative for FLU A and B antigen Infection due to influenza A or B cannot be ruled out since the antigen present in the sample may be below the detection limit of the test. - Procedures RIGHT SIDE HD CATHETER PLACEMENT HD Assessment and Plan - Assessment and Plan Right distal radius fracture Continue to work on gentle range of motion of wrist and fingers No bracing is necessary at this time May do light activities with right wrist
[2018-03-05] MEDS: Calcitriol 0.25 MCG Capsule PO SCH (09:23)
[2018-03-05] MEDS: amLODIPine 5 MG Tablet PO SCH (09:23)
[2018-03-05] MEDS: Topiramate 25 MG Tablet PO SCH (09:23)
[2018-03-05] MEDS: Loratadine 10 MG Tablet PO SCH (09:23)
[2018-03-05] MEDS: Furosemide 40 MG Tablet PO SCH (09:23)
[2018-03-05] MEDS: Senna/Docusate Sodium 8.6/50 MG Tablet PO SCH ×2 (09:23→20:56)
[2018-03-05] MEDS: Metoprolol Tartrate 25 MG Tablet PO SCH ×2 (09:24→20:54)
[2018-03-05] MEDS: Sertraline 100 MG Tablet PO SCH (09:24)
--- NOTE | 2018-03-05 10:20 | P.PNIM ---
Subjective Interval history: Pt seen and examined. Going for HD today. Reports hoarse voice is gone. Today complains of having 3-4 liquid stools this AM. States he cannot see if there is blood or if it is black. Denies abdominal pain, nausea, or vomiting. Also requests to have half a sandwich at night for a snack instead of gay crackers and peanut butter. Physical Exam Vital signs: Vital Signs 03/04/18 12:00 03/04/18 16:00 03/04/18 20:08 Temperature 98.3 F 98.1 F 98.2 F Pulse Rate 79 77 78 Respiratory Rate 18 18 17 Blood Pressure 132/78 125/72 116/64 Pulse Oximetry 92 L 94 L 95 03/04/18 23:18 03/05/18 08:00 Temperature 98.2 F 98 F Pulse Rate 77 77 Respiratory Rate 17 17 Blood Pressure 121/73 128/77 Pulse Oximetry 96 94 L Intake & Output 03/04/18 03/05/18 03/05/18 18:59 06:59 18:59 Intake Total 350 / 350 720 / 720 Output Total 550 / 550 750 / 750 Balance -200 / -200 -30 / -30 Weight 82 kg Intake: Oral 350 / 350 720 / 720 Output: Urine 550 / 550 750 / 750 Other: # Voids 3 Date of Last Bowel Movement 03/03/18 03/04/18 # Bowel Movements 1 0 Narrative: GENERAL: male sitting in chair in NAD. SKIN: Warm and dry. HEENT: Voice is hoarse. No pharyngeal erythema or exudate. CHEST: Vascath L chest, no surrounding erythema. HEART: RRR with 1/6 AL. LUNGS: CTAB without wheezes or crackles. ABDOMEN: +BS, soft, NT, ND. EXTREMITIES: AVF R wrist with palpable bruit. L foot with chronic appearing, superficial wound of lateral heel. NEURO: Awake and alert. Nonfocal. PSYCH: Appropriate mood and affect. Results - Labs CBC & Chem 7: 03/03/18 05:28 03/03/18 05:28 Laboratory Results - last 24 hr 03/04/18 03/04/18 03/04/18 12:59 17:55 20:44 POC Glucose 191 H 272 H 245 H Microbiology 03/04/18 19:57 Nasal Wash Influenza Types A,B Antigen - Final Negative for FLU A and B antigen Infection due to influenza A or B cannot be ruled out since the antigen present in the sample may be below the detection limit of the test. 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 03/05: Will check C. diff PCR for diarrhea 1. DKA - resolved - Patient is a brittle diabetic with dietary noncompliance - On admission, patient had ABG with pH 6.95, AG 33, and glucose 831 with associated Kussmaul breathing and renal failure - S/P insulin drip and DKA protocol 2. Type 1 DM - A1c 8.5 - Merchandising Assistant was following and his insulin pump was adjusted - Endocrine no longer coming to hospital - Pt to continue managing insulin pump - Diabetic diet, ok for 1/2 turkey sandwich for PM snack 3. HCAP - resolved - CXR 02/09 right infiltrate - S/p vancomycin and aztreonam - Repeat CXR 02/15 with no acute cardiopulmonary disease - Repeat CXR 02/26 showing some bibasilar airspace disease believed to be atelectasis - Lungs clear on exam and patient remains afebrile - Incentive spirometer - Supplemental O2 to maintain sats >92% - Monitor for signs of infection 4. ESRD - Nephrology following - Fistula in place however not yet mature. Permacath placed 02/20 - Outpatient chair time has been arranged MWF - Avoid nephrotoxins - Percocet PRN for pain at Permacath site 5. History of DVT - Continue Eliquis 6. HTN - BPs stable - Continue amlodipine, hydralazine, and metoprolol - Clonidine PRN 7. Anemia - Iron studies suggest combination of anemia of chronic disease and iron deficiency - Hemodynamically stable - Continue to monitor - Epogen with dialysis 8. L Heel wound - Appears chronic, not acutely infected or significantly draining - Wound care nurse consulted * Cleanse left lateral heel wound with NS Q3D and PRN for saturation or dislodgement * Apply Cavilon skin barrier film to periwound and allow to dry * Place Optifoam AG over wound bed and secure with dry cover and date dressing. * Keep heel elevated off mattress surface at all times 9. R wrist pain - XR showing subacute fracture involving the distal third of the ulna - Ortho consulted no further intervention, no need for splint or cast - Analgesics PRN - Continue Lyrica Patient with multiple comorbid conditions as described above and poor social situation. PT recommending long-term placement. D/W case management DVT prophylaxis: on Eliquis Discussed Condition With: Patient Discharge Planning: Case management working with placement (1) Diabetes type 1, uncontrolled Qualifiers: Diabetes mellitus complication detail: with diabetic retinopathy
--- NOTE | 2018-03-05 10:21 | P.PNNP ---
Physical Exam Vital signs: Vital Signs 03/04/18 12:00 03/04/18 16:00 03/04/18 20:08 Temperature 98.3 F 98.1 F 98.2 F Pulse Rate 79 77 78 Respiratory Rate 18 18 17 Blood Pressure 132/78 125/72 116/64 Pulse Oximetry 92 L 94 L 95 03/04/18 23:18 03/05/18 08:00 Temperature 98.2 F 98 F Pulse Rate 77 77 Respiratory Rate 17 17 Blood Pressure 121/73 128/77 Pulse Oximetry 96 94 L Intake & Output 03/04/18 03/05/18 03/05/18 18:59 06:59 18:59 Intake Total 350 / 350 720 / 720 Output Total 550 / 550 750 / 750 Balance -200 / -200 -30 / -30 Weight 82 kg Intake: Oral 350 / 350 720 / 720 Output: Urine 550 / 550 750 / 750 Other: # Voids 3 Date of Last Bowel Movement 03/03/18 03/04/18 # Bowel Movements 1 0 Assessment and Plan - Assessment (1) End stage renal disease on dialysis Code(s): N18.6 - End stage renal disease; Z99.2 - Dependence on renal dialysis Status: Chronic Plan: Patient has End stage renal disease on HD now TTS. AVF is not ready yet, AVF need more time for maturation. Has EGD and Colonoscopy done on 02/16., results noted. PermCath 02/20 Continue Epogen with dialysis Continue lasix Discussed fluid restriction Outpatient HD arranged/ [facility], 3:45pm chair time. Awaiting placement. (2) DKA, type 1 Code(s): E10.10 - Type 1 diabetes mellitus with ketoacidosis without coma Status: Acute Qualifiers: Qualified Code(s): E10.10 - Type 1 diabetes mellitus with ketoacidosis without coma Plan: Maintain blood sugars between 140 mg/dl to 180 mg/dl (3) Anemia Code(s): D64.9 - Anemia, unspecified Status: Chronic Plan: Venofer ordered Epogen with dialysis (4) Hypertension Code(s): I10 - Essential (primary) hypertension Status: Acute Plan: Blood pressure better controlled, will monitor - Plan .
[2018-03-05 11:01] LABS: Baso # (Auto) 0.1 th/mm3 (0.0-0.2); Baso % (Auto) 1.1 % (0.0-2.0); Eos # (Auto) 0.2 th/mm3 (0.0-0.4); Eos % (Auto) 3.6 % (0.0-4.0); Hemoglobin 8.1 gm/dL (13.0-17.0); Lymph # (Auto) 1.4 th/mm3 (1.0-4.8); Lymph % (Auto) 25.9 % (9.0-44.0); Mean Corpuscular HGB Conc 32.3 % (32.0-36.0); Mean Corpuscular Hemoglobin 28.7 pg (27.0-34.0); Mean Corpuscular Volume 88.7 fL (80.0-100.0); Mean Platelet Volume 7.8 fL (7.0-11.0); Mono # (Auto) 0.5 th/mm3 (0.0-0.9); Mono % (Auto) 8.3 % (0.0-8.0); Neut # (Auto) 3.4 th/mm3 (1.8-7.7); Neut % (Auto) 61.1 % (16.0-70.0); Platelet Count 282 th/mm3 (150-450); Red Blood Count 2.82 mil/mm3 (4.50-5.90); Red Cell Distribution Width 15.5 % (11.6-17.2); White Blood Count 5.6 th/mm3 (4.0-11.0)
[2018-03-05] MEDS: Heparin 10,000 UNITS/10 ML Vial (for IV use) OTHER PRN (11:55)
--- NOTE | 2018-03-05 15:44 | P.PNNP ---
Subjective Interval history: Patient denies nausea, vomiting, diarrhea, fever, chills chest pain and dyspnea REVIEW OF SYSTEMS: GENERAL: POSITIVE for fatigue. Eyes: Negative for eye pain. ENT: Negative for earache RESP: Negative for cough. CV: negative for chest pain. GI: Negative for abdominal pain. -MALE:Negative for hematuria Musculoskeletal: POSITIVE for joint pain involving feet BACK: No Pain SKIN: Negative for rash. NEURO: Negative for seizures. PSYCHE: Negative for depression. Lymph: No Lymph node enlargement Physical Exam Vital signs: Vital Signs 03/04/18 16:00 03/04/18 20:08 03/04/18 23:18 Temperature 98.1 F 98.2 F 98.2 F Pulse Rate 77 78 77 Respiratory Rate 18 17 17 Blood Pressure 125/72 116/64 121/73 Pulse Oximetry 94 L 95 96 03/05/18 08:00 Temperature 98 F Pulse Rate 77 Respiratory Rate 17 Blood Pressure 128/77 Pulse Oximetry 94 L Intake & Output 03/04/18 03/05/18 03/05/18 18:59 06:59 18:59 Intake Total 350 / 350 720 / 720 Output Total 550 / 550 750 / 750 4000 / 4000 Balance -200 / -200 -30 / -30 -4000 / -4000 Weight 82 kg Intake: Oral 350 / 350 720 / 720 Output: Urine 550 / 550 750 / 750 Hemodialysis Amount 4000 / 4000 Other: # Voids 3 Date of Last Bowel Movement 03/03/18 03/04/18 03/04/18 # Bowel Movements 1 0 Narrative: Examination : GENERAL APPEARANCE: in no acute distress. HEENT:: normocephalic, atraumatic NECK :no cervical lymphadenopathy. ORAL CAVITY: mucosa moist. CHEST:normal SKIN: no suspicious lesions. HEART: no murmurs. LUNGS: clear to auscultation bilaterally. BREASTS: not examined. ABDOMEN: soft, nontender. BACK: No paraspinal muscle spasm. MALE GENITOURINARY: not examined. MUSCULOSKELETAL: normal. EXTREMITIES: 1+ edema every fistula right wrist with a positive thrill FOOT EXAM : PERIPHERAL PULSES: normal. NEUROLOGIC: nonfocal. PSYCH: normal. Assessment and Plan - Assessment (1) Chronic kidney disease, stage 4, severely decreased GFR Code(s): N18.4 - Chronic kidney disease, stage 4 (severe) Status: Acute - Plan #: N18.6 :ESRD-Standard care for ESRD patient --Periodic dialysis based on clinical symptoms laboratory results and volume status --with adequacy monitoring --as well as monitoring for anemia, nutrition, bone disease, blood pressure control, --monitor access adequacy, and complications . #: OTHER PROBLEMS: [Diabetes with history of diabetic ketoacidosis, anemia, hypertension] PLAN:
[2018-03-05] MEDS: Pantoprazole Inj 40 MG Vial IV.PUSH SCH (15:49)
[2018-03-05] MEDS: Insulin NovoLOG Aspart Correctional Sugar Inj SQ SCH ×4 (16:02→21:36)
[2018-03-05 22:28] LABS: Albumin 2.1 g/dL (3.4-5.0); Calcium 7.6 mg/dL (8.5-10.1); Carbon Dioxide 30.7 meq/L (21.0-32.0); Phosphorus 3.4 mg/dL (2.5-4.9); Potassium 3.6 meq/L (3.5-5.1)
[2018-03-06 05:52] LABS: Baso # (Auto) 0.1 th/mm3 (0.0-0.2); Eos # (Auto) 0.2 th/mm3 (0.0-0.4); Hematocrit 26.1 % (39.0-51.0); Hemoglobin 8.5 gm/dL (13.0-17.0); Lymph # (Auto) 1.5 th/mm3 (1.0-4.8); Lymph % (Auto) 27.3 % (9.0-44.0); Mean Corpuscular HGB Conc 32.5 % (32.0-36.0); Mean Corpuscular Hemoglobin 28.9 pg (27.0-34.0); Mean Platelet Volume 8.1 fL (7.0-11.0); Mono # (Auto) 0.5 th/mm3 (0.0-0.9); Mono % (Auto) 8.9 % (0.0-8.0); Neut # (Auto) 3.2 th/mm3 (1.8-7.7); Neut % (Auto) 59.8 % (16.0-70.0); Platelet Count 274 th/mm3 (150-450); Red Blood Count 2.94 mil/mm3 (4.50-5.90); Red Cell Distribution Width 15.6 % (11.6-17.2); White Blood Count 5.4 th/mm3 (4.0-11.0)
[2018-03-06 06:28] LABS: Calcium 7.3 mg/dL (8.5-10.1); Carbon Dioxide 28.4 meq/L (21.0-32.0); Phosphorus 3.8 mg/dL (2.5-4.9); Potassium 3.3 meq/L (3.5-5.1); Total Protein 5.1 g/dL (6.4-8.2)
[2018-03-06] MEDS: Insulin NovoLOG Aspart Correctional Sugar Inj SQ SCH ×4 (10:18→20:26)
[2018-03-06] MEDS: Calcitriol 0.25 MCG Capsule PO SCH (10:25)
[2018-03-06] MEDS: Topiramate 25 MG Tablet PO SCH (10:25)
[2018-03-06] MEDS: Senna/Docusate Sodium 8.6/50 MG Tablet PO SCH ×2 (10:25→22:18)
[2018-03-06] MEDS: Loratadine 10 MG Tablet PO SCH (10:28)
[2018-03-06] MEDS: Furosemide 40 MG Tablet PO SCH (10:28)
[2018-03-06] MEDS: amLODIPine 5 MG Tablet PO SCH (10:29)
[2018-03-06] MEDS: Pantoprazole Inj 40 MG Vial IV.PUSH SCH (10:30)
[2018-03-06] MEDS: Sertraline 100 MG Tablet PO SCH (10:32)
[2018-03-06] MEDS: Metoprolol Tartrate 25 MG Tablet PO SCH ×2 (10:32→22:17)
--- NOTE | 2018-03-06 11:55 | P.PNIM ---
Subjective Interval history: Doing okay with no complaints. Physical Exam Vital signs: Vital Signs 03/05/18 16:00 03/05/18 20:00 03/06/18 00:00 Temperature 99 F 98.5 F 98.4 F Pulse Rate 84 85 81 Respiratory Rate 18 19 17 Blood Pressure 137/73 132/70 139/70 Pulse Oximetry 95 94 L 93 L 03/06/18 04:00 03/06/18 08:00 Temperature 98.6 F 98.3 F Pulse Rate 78 79 Respiratory Rate 20 16 Blood Pressure 141/69 H 160/95 H Pulse Oximetry 95 93 L Intake & Output 03/05/18 03/06/18 03/06/18 18:59 06:59 18:59 Intake Total 240 / 240 Output Total 4700 / 4700 Balance -4700 / -4700 240 / 240 Weight 85.1 kg Intake: Oral 240 / 240 Output: Urine 700 / 700 Hemodialysis Amount 4000 / 4000 Other: # Voids 1,600 2 Date of Last Bowel Movement 03/04/18 03/05/18 # Bowel Movements 1 Narrative: GENERAL: This is a well-nourished, well-developed patient, in no apparent distress. CARDIOVASCULAR: Regular rate and rhythm RESPIRATORY: Clear to auscultation. Breath sounds equal bilaterally. No wheezes , rales, or rhonchi. GASTROINTESTINAL: Abdomen soft, non-tender, nondistended. Normal active bowel sounds MUSCULOSKELETAL: Extremities without clubbing, cyanosis, or edema. NEURO: Sleepy but when awake was Alert & Oriented x4 to person, place, time, situation. Moves all ext x4 Results - Labs CBC & Chem 7: 03/06/18 04:07 03/06/18 04:07 Laboratory Results - last 24 hr 03/05/18 03/05/18 03/05/18 09:22 11:58 17:42 WBC RBC Hgb Hct MCV MCH MCHC RDW Plt Count MPV Neut % (Auto) Lymph % (Auto) [place] % (Auto) Eos % (Auto) Baso % (Auto) Neut # (Auto) Lymph # (Auto) [place] # (Auto) Eos # (Auto) Baso # (Auto) WBC Differential Differential Comment Sodium Potassium Chloride Carbon Dioxide Anion Gap BUN Creatinine Estimated GFR POC Glucose 283 H 129 H 215 H Random Glucose Calcium Prot Corrected Calcium Phosphorus Magnesium Total Bilirubin AST ALT Alkaline Phosphatase Total Protein Albumin Stl C.difficile Tox PCR St C. diff Tox Epid 027 03/05/18 03/05/18 03/06/18 21:17 21:33 04:07 WBC 5.4 RBC 2.94 L Hgb 8.5 L Hct 26.1 L MCV 89.0 MCH 28.9 MCHC 32.5 RDW 15.6 Plt Count 274 MPV 8.1 Neut % (Auto) 59.8 Lymph % (Auto) 27.3 [place] % (Auto) 8.9 H Eos % (Auto) 3.0 Baso % (Auto) 1.0 Neut # (Auto) 3.2 Lymph # (Auto) 1.5 [place] # (Auto) 0.5 Eos # (Auto) 0.2 Baso # (Auto) 0.1 WBC Differential . Differential Comment Auto diff final Sodium 143 Potassium 3.6 Chloride 105 Carbon Dioxide 30.7 Anion Gap 7 BUN 24 H Creatinine 3.62 H Estimated GFR 19 L POC Glucose 284 H Random Glucose 289 H Calcium 7.6 L Prot Corrected Calcium Phosphorus 3.4 Magnesium Total Bilirubin AST ALT Alkaline Phosphatase Total Protein Albumin 2.1 L Stl C.difficile Tox PCR St C. diff Tox Epid 027 03/06/18 03/06/18 03/06/18 04:07 08:24 Unknown WBC RBC Hgb Hct MCV MCH MCHC RDW Plt Count MPV Neut % (Auto) Lymph % (Auto) [place] % (Auto) Eos % (Auto) Baso % (Auto) Neut # (Auto) Lymph # (Auto) [place] # (Auto) Eos # (Auto) Baso # (Auto) WBC Differential Differential Comment Sodium 144 Potassium 3.3 L Chloride 107 Carbon Dioxide 28.4 Anion Gap 9 BUN 29 H Creatinine 3.80 H Estimated GFR 18 L POC Glucose 302 H Random Glucose 257 H Calcium 7.3 L* Prot Corrected Calcium 8.4 L Phosphorus 3.8 Magnesium 2.0 Total Bilirubin 0.2 AST 17 ALT 20 Alkaline Phosphatase 124 H Total Protein 5.1 L Albumin 2.0 L Stl C.difficile Tox PCR Positive H St C. 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 1. DKA on admission resolved - Patient is a brittle diabetic with dietary noncompliance - On admission, patient had ABG with pH 6.95, AG 33, and glucose 831 with associated Kussmaul breathing and renal failure - S/P insulin drip and DKA protocol 2. Type 1 DM - A1c 8.5 - Drink Mixer was following and his insulin pump was adjusted. Unfortunately , his pump came out too and I was informed by RN that endocrine is no longer coming to the hospital. Insulin pump has now been reinserted and functionally at this time. -At this time will stop patient's Levemir and preprandial scheduled insulin. Patient will adjust insulin pump based on blood sugar trends and carbohydrate intake. 3. HCAP - resolved - CXR 02/09 right infiltrate - S/p vancomycin and aztreonam - Repeat CXR 02/15 with no acute cardiopulmonary disease - Repeat CXR 02/26 showing some bibasilar airspace disease and in this clinical setting I believe it is atelectasis - Incentive spirometer - Supplemental O2 to maintain sats >92% - Monitor for signs of infection 4. ESRD - Nephrology following - Fistula in place however not yet mature. Permacath placed 02/20 - Outpatient chair time has been arranged MWF - Avoid nephrotoxins - Percocet PRN for pain at Permacath site 5. Hematochezia - GI consulted - S/P EGD/colonoscopy on 02/16. EGD was normal except irregular Z line biopsy was done. Colonoscopy showed multiple polyps, 1 of them was flat and large which could be a reason for bleeding. S/P polypectomy - Recommendations to repeat colonoscopy in 3 months, okay to discharge from GI standpoint - Monitor CBC while on Eliquis 6. Hypokalemia, mild - Managed with HD 7. History of DVT - Continue Eliquis 8. HTN, chronic essential -Blood pressures much better improved - Continue amlodipine, at max dose - Hydralazine increased to to 100 mg TID - Started metoprolol 25 mg BID (HR in the 90-100s) - Clonidine PRN 9. Anemia of chronic kidney disease - Iron studies suggest combination of anemia of chronic disease and iron deficiency - Hemodynamically stable - Continue to monitor - Epogen with dialysis 10. L Heel wound - Appears chronic, not acutely infected or significantly draining - Wound care nurse consulted * Cleanse left lateral heel wound with NS Q3D and PRN for saturation or dislodgement * Apply Cavilon skin barrier film to periwound and allow to dry * Place Optifoam AG over wound bed and secure with dry cover and date dressing. * Keep heel elevated off mattress surface at all times 11. R wrist pain - XR showing subacute fracture involving the distal third of the ulna - Ortho consulted no further intervention, no need for splint or cast - Analgesics PRN - Continue Lyrica Patient with multiple comorbid conditions as described above and poor social situation. PT recommending long-term placement. DVT prophylaxis: on Eliquis Discharge Planning: business liaison manager assisted with long-term placement. (1) Diabetes type 1, uncontrolled Qualifiers: Diabetes mellitus complication detail: with diabetic retinopathy
--- NOTE | 2018-03-06 15:38 | P.PNNP ---
Subjective Interval history: patient denies nausea, vomiting, diarrhea, fever, chills chest pain and dyspnea , upset about being in isolation due to Clostridium difficile next HISTORY OF PRESENT ILLNESS: I was called to see the patient because of advanced renal disease. The patient was seen by me when he was admitted last time; this was 2-3 weeks ago and then he was discharged just last week. The patient has history of hypertension, diabetes mellitus, history of DVT, blindness in the right eye with diabetic retinopathy, left foot ulcer, recent diabetic ketoacidosis, chronic kidney disease, advanced stage IV renal failure. He came to the hospital with complaint of diarrhea, nausea, vomiting, and feeling weak. I was called to see the patient because of very high BUN and creatinine. The patient has a history of advanced stage IV renal disease. He has a fistula in the right arm, but has never been started on dialysis. He was discharged recently with a creatinine of 3.7. Now, he came with a creatinine of 4.9 and a very high potassium of 6.4 and bicarbonate less than 5 with a pH of 6.95. The patient was found to be severely acidotic with an anion gap of 33. He is started on diabetic ketoacidosis protocol and was given the bicarbonate and insulin. The patient also has nausea and, according to him, he has been taking his medications. The patient lives with a roommate who called EMS. The patient has mild shortness of breath. PAST MEDICAL HISTORY: Hypertension, diabetes mellitus, chronic anemia, peripheral vascular disease, diabetic retinopathy, chronic kidney disease. PAST SURGICAL HISTORY: History of right A-V fistula surgery. SOCIAL HISTORY: The patient is single. He lives with a roommate. There is no history of smoking or alcoholism. FAMILY HISTORY: Noncontributory. ALLERGIES: ALLERGIC TO MULTIPLE MEDICATIONS INCLUDING AMOXICILLIN AND PENICILLIN G. MEDICATIONS: Currently, he is on following medications: Dextrose with normal saline, insulin infusion with diabetic ketoacidosis protocol. REVIEW OF SYSTEMS: GENERAL: POSITIVE for fatigue. Eyes: Negative for eye pain. ENT: Negative for earache RESP: Negative for cough. CV: negative for chest pain. GI: Negative for abdominal pain. -MALE:Negative for hematuria Musculoskeletal: Negative for joint pain BACK: No Pain SKIN: Negative for rash. NEURO: Negative for seizures. PSYCHE: POSITIVE for depression. And anxiety Lymph: No Lymph node enlargement Physical Exam Vital signs: Vital Signs 03/05/18 16:00 08/13/18 20:00 03/06/18 00:00 Temperature 99 F 98.5 F 98.4 F Pulse Rate 84 85 81 Respiratory Rate 18 19 17 Blood Pressure 137/73 132/70 139/70 Pulse Oximetry 95 94 L 93 L 03/06/18 04:00 03/06/18 08:00 03/06/18 12:00 Temperature 98.6 F 98.3 F 98.3 F Pulse Rate 78 79 85 Respiratory Rate 20 16 18 Blood Pressure 141/69 H 160/95 H 131/65 Pulse Oximetry 95 93 L 94 L Intake & Output 03/05/18 03/06/18 03/06/18 18:59 06:59 18:59 Intake Total 240 / 240 Output Total 4700 / 4700 Balance -4700 / -4700 240 / 240 Weight 85.1 kg Intake: Oral 240 / 240 Output: Urine 700 / 700 Hemodialysis Amount 4000 / 4000 Other: # Voids 1,600 2 Date of Last Bowel Movement 03/04/18 03/05/18 # Bowel Movements 1 Narrative: GENERAL: This is a well-nourished, well-developed patient, in no apparent distress. CARDIOVASCULAR: Regular rate and rhythm RESPIRATORY: Clear to auscultation. Breath sounds equal bilaterally. No wheezes , rales, or rhonchi. GASTROINTESTINAL: Abdomen soft, non-tender, nondistended. Normal active bowel sounds MUSCULOSKELETAL: Extremities without clubbing, cyanosis, or edema. NEURO: Sleepy but when awake was Alert & Oriented x4 to person, place, time, situation. Moves all ext x4 Assessment and Plan - Assessment (1) Chronic kidney disease, stage 4, severely decreased GFR Code(s): N18.4 - Chronic kidney disease, stage 4 (severe) Status: Acute Plan: #: N18.6 :ESRD-Standard care for ESRD patient --Periodic dialysis based on clinical symptoms laboratory results and volume status --with adequacy monitoring --as well as monitoring for anemia, nutrition, bone disease, blood pressure control, --monitor access adequacy, and complications - Plan #: OTHER PROBLEMS: Hyperkalemia, resolved, anemia due to ESRD, stable, hypertension, diabetes mellitus, history of diabetic ketoacidosis related PLAN: Defer to hospitalist/primary care team --- also please see orders for details
[2018-03-06] MEDS: oxyCODONE/Acetaminophen 10/325 Tablet PO PRN (22:27)
[2018-03-07] MEDS: oxyCODONE/Acetaminophen 10/325 Tablet PO PRN ×3 (04:17→22:32)
[2018-03-07 07:16] LABS: Baso # (Auto) 0.1 th/mm3 (0.0-0.2); Baso % (Auto) 1.2 % (0.0-2.0); Eos # (Auto) 0.2 th/mm3 (0.0-0.4); Eos % (Auto) 3.6 % (0.0-4.0); Hematocrit 27.7 % (39.0-51.0); Hemoglobin 8.8 gm/dL (13.0-17.0); Lymph # (Auto) 1.6 th/mm3 (1.0-4.8); Lymph % (Auto) 30.3 % (9.0-44.0); Mean Corpuscular HGB Conc 31.8 % (32.0-36.0); Mean Corpuscular Hemoglobin 28.5 pg (27.0-34.0); Mean Corpuscular Volume 89.7 fL (80.0-100.0); Mean Platelet Volume 8.4 fL (7.0-11.0); Mono # (Auto) 0.5 th/mm3 (0.0-0.9); Mono % (Auto) 9.3 % (0.0-8.0); Neut % (Auto) 55.6 % (16.0-70.0); Platelet Count 282 th/mm3 (150-450); Red Blood Count 3.08 mil/mm3 (4.50-5.90); White Blood Count 5.3 th/mm3 (4.0-11.0)
--- NOTE | 2018-03-07 10:38 | P.PNNP ---
Subjective Interval history: Seen during hemodialysis tolerating well. Denies any shortness of breath, dysuria, nausea, or vomiting. Mild lower extremity edema. <Jazlyn De Anda - Last Filed: 03/07/18 10:33> Physical Exam Vital signs: Vital Signs 03/06/18 12:00 03/06/18 17:00 03/06/18 19:15 Temperature 98.3 F 97.8 F Pulse Rate 85 80 Respiratory Rate 18 17 16 Blood Pressure 131/65 146/92 H Pulse Oximetry 94 L 96 03/06/18 20:00 03/07/18 00:00 03/07/18 04:00 Temperature 97.8 F 98.1 F 98.6 F Pulse Rate 82 79 79 Respiratory Rate 18 17 18 Blood Pressure 146/90 H 145/86 H 149/89 H Pulse Oximetry 95 91 L 96 Intake & Output 03/06/18 03/07/18 03/07/18 18:59 06:59 18:59 Intake Total 442 / 442 Balance 442 / 442 Weight 84.4 kg Intake: Oral 442 / 442 Other: # Voids 2 Date of Last Bowel Movement 03/05/18 Narrative: GENERAL: Alert and oriented. SKIN: Warm and dry. Left foot with chronic appearing wound CHEST: HD catheter left IJ. HEART: Heart regular. AVF in right wrist with positive thrill and bruit. Lower extremity edema. LUNGS: Lungs are clear and equal bilaterally. ABDOMEN: Soft with positive bowel sounds. Non tender EXTREMITIES: Normal range of motion. PSYCH: Appropriate mood and affect. <Jazlyn De Anda - Last Filed: 03/07/18 10:33> Assessment and Plan - Assessment (1) End stage renal disease on dialysis Code(s): N18.6 - End stage renal disease; Z99.2 - Dependence on renal dialysis Status: Chronic Plan: Patient has End stage renal disease on HD now TTS. AVF is not ready yet, AVF need more time for maturation. PermCath 02/20 left IJ Continue Epogen with dialysis Outpatient HD han/ [facility], 3:45pm chair time. Seen during hemodialysis/ 3 K bath will remove fluid as tolerated. (2) DKA, type 1 Code(s): E10.10 - Type 1 diabetes mellitus with ketoacidosis without coma Status: Acute Qualifiers: Diabetes mellitus complication detail: without coma Qualified Code(s): E10.10 - Type 1 diabetes mellitus with ketoacidosis without coma Plan: Maintain blood sugars between 140 mg/dl to 180 mg/dl Insulin pump (3) Anemia Code(s): D64.9 - Anemia, unspecified Status: Chronic Plan: HGB stable at 8.8 Epogen with dialysis (4) Hypertension Code(s): I10 - Essential (primary) hypertension Status: Acute Plan: Will monitor continue current treatment - Plan s <Jazlyn De Anda - Last Filed: 03/07/18 10:33> - Assessment (1) Chronic kidney disease, stage 4, severely decreased GFR Code(s): N18.4 - Chronic kidney disease, stage 4 (severe) Status: Acute - Attending Attestation Pt seen with UNIT OPERATOR, agree with the UNIT OPERATOR assessment and plan <Isi Tyler - Last Filed: 05/17/18 17:19>
[2018-03-07] MEDS: Heparin 10,000 UNITS/10 ML Vial (for IV use) OTHER PRN (10:52)
--- NOTE | 2018-03-07 12:15 | P.PNIM ---
Subjective Interval history: in no acute distress. had his HD earlier today. Physical Exam Vital signs: Vital Signs 03/06/18 17:00 03/06/18 19:15 03/06/18 20:00 Temperature 97.8 F 97.8 F Pulse Rate 80 82 Respiratory Rate 17 16 18 Blood Pressure 146/92 H 146/90 H Pulse Oximetry 96 95 03/07/18 00:00 03/07/18 04:00 03/07/18 08:00 Temperature 98.1 F 98.6 F 98.6 F Pulse Rate 79 79 80 Respiratory Rate 17 18 18 Blood Pressure 145/86 H 149/89 H 136/72 Pulse Oximetry 91 L 96 96 Intake & Output 03/06/18 03/07/18 03/07/18 18:59 06:59 18:59 Intake Total 442 / 442 Output Total 5000 / 5000 Balance 442 / 442 -5000 / -5000 Weight 84.4 kg Intake: Oral 442 / 442 Output: Hemodialysis Amount 5000 / 5000 Other: # Voids 2 Date of Last Bowel Movement 03/05/18 - Constitutional no acute distress - Routine Respiratory Exam Present: CTA bilaterally - Routine Cardiovascular Exam Present: RRR - Routine Abdominal Exam Present: soft - Routine Extremities Exam Comments: no pedal edema. - Routine Neurological Exam Present: alert Results - Labs CBC & Chem 7: 03/07/18 06:31 03/06/18 04:07 Laboratory Results - last 24 hr 03/06/18 03/06/18 03/06/18 12:14 16:49 19:44 WBC RBC Hgb Hct MCV MCH MCHC RDW Plt Count MPV Neut % (Auto) Lymph % (Auto) [place] % (Auto) Eos % (Auto) Baso % (Auto) Neut # (Auto) Lymph # (Auto) [place] # (Auto) Eos # (Auto) Baso # (Auto) WBC Differential Differential Comment POC Glucose 271 H 260 H 243 H 03/07/18 03/07/18 06:31 08:44 WBC 5.3 RBC 3.08 L Hgb 8.8 L Hct 27.7 L MCV 89.7 MCH 28.5 MCHC 31.8 L RDW 16.0 Plt Count 282 MPV 8.4 Neut % (Auto) 55.6 Lymph % (Auto) 30.3 [place] % (Auto) 9.3 H Eos % (Auto) 3.6 Baso % (Auto) 1.2 Neut # (Auto) 3.0 Lymph # (Auto) 1.6 [place] # (Auto) 0.5 Eos # (Auto) 0.2 Baso # (Auto) 0.1 WBC Differential . Differential Comment Auto diff final POC Glucose 249 H - Procedures RIGHT SIDE HD CATHETER PLACEMENT HD Assessment and Plan - Assessment (1) Diabetes type 1, uncontrolled Code(s): E10.65 - Type 1 diabetes mellitus with hyperglycemia Status: Acute (2) Hypertension Code(s): I10 - Essential (primary) hypertension Status: Chronic (3) End stage renal disease on dialysis Code(s): N18.6 - End stage renal disease; Z99.2 - Dependence on renal dialysis Status: Chronic (4) Anemia Code(s): D64.9 - Anemia, unspecified Status: Chronic - Plan 37 year old male with history of IDDM, HTN, DVT on Eliquis, 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 1. DKA on admission resolved - Patient is a brittle diabetic with dietary noncompliance - On admission, patient had ABG with pH 6.95, AG 33, and glucose 831 with associated Kussmaul breathing and renal failure - S/P insulin drip and DKA protocol 2. Type 1 DM - A1c 8.5 - Road Roller Operator was following and his insulin pump was adjusted. Unfortunately , his pump came out - now Insulin pump has now been reinserted and functionally at this time. -At this time patient will adjust insulin pump based on blood sugar trends and carbohydrate intake. 3. HCAP - resolved - CXR 02/09 right infiltrate - S/p vancomycin and aztreonam - Repeat CXR 02/15 with no acute cardiopulmonary disease - Repeat CXR 02/26 showing some bibasilar airspace disease and in this clinical setting I believe it is atelectasis - Incentive spirometer - Supplemental O2 to maintain sats >92% - Monitor for signs of infection 4. ESRD - Nephrology following - Fistula in place however not yet mature. Permacath placed 02/20 - Outpatient chair time has been arranged MWF - Avoid nephrotoxins - Percocet PRN for pain at Permacath site 5. Hematochezia - GI consulted - S/P EGD/colonoscopy on 02/16. EGD was normal except irregular Z line biopsy was done. Colonoscopy showed multiple polyps, 1 of them was flat and large which could be a reason for bleeding. S/P polypectomy - Recommendations to repeat colonoscopy in 3 months, okay to discharge from GI standpoint - Monitor CBC while on Eliquis 6. Hypokalemia, mild - Managed with HD 7. History of DVT - Continue Eliquis 8. HTN, chronic essential -Blood pressures much better improved - Continue amlodipine. - Hydralazine increased to to 100 mg TID - Started metoprolol 25 mg BID (HR in the 90-100s) - Clonidine PRN 9. Anemia of chronic kidney disease - Iron studies suggest combination of anemia of chronic disease and iron deficiency - Hemodynamically stable - Continue to monitor - Epogen with dialysis 10. L Heel wound - Appears chronic, not acutely infected or significantly draining - Wound care nurse consulted * Cleanse left lateral heel wound with NS Q3D and PRN for saturation or dislodgement * Apply Cavilon skin barrier film to periwound and allow to dry * Place Optifoam AG over wound bed and secure with dry cover and date dressing. * Keep heel elevated off mattress surface at all times 11. R wrist pain - XR showing subacute fracture involving the distal third of the ulna - Ortho consulted no further intervention, no need for splint or cast - Analgesics PRN - Continue Lyrica 12- C- diff colitis; start on oral Vanco and monitor the response. Patient with multiple comorbid conditions as described above and poor social situation. PT recommending long-term placement. DVT prophylaxis: on Eliquis Discharge Planning: case management working on placement. (1) Diabetes type 1, uncontrolled Qualifiers: Diabetes mellitus complication detail: with diabetic retinopathy
[2018-03-07] MEDS: Insulin NovoLOG Aspart Correctional Sugar Inj SQ SCH ×4 (12:16→22:25)
[2018-03-07] MEDS: amLODIPine 5 MG Tablet PO SCH (12:17)
[2018-03-07] MEDS: Pantoprazole Inj 40 MG Vial IV.PUSH SCH (12:17)
[2018-03-07] MEDS: Metoprolol Tartrate 25 MG Tablet PO SCH ×2 (12:18→22:22)
[2018-03-07] MEDS: Calcitriol 0.25 MCG Capsule PO SCH (12:18)
[2018-03-07] MEDS: Furosemide 40 MG Tablet PO SCH (12:18)
[2018-03-07] MEDS: Sertraline 100 MG Tablet PO SCH (12:18)
[2018-03-07] MEDS: Topiramate 25 MG Tablet PO SCH (12:19)
[2018-03-07] MEDS: Loratadine 10 MG Tablet PO SCH (12:19)
[2018-03-07] MEDS: Senna/Docusate Sodium 8.6/50 MG Tablet PO SCH ×2 (12:19→22:22)
[2018-03-07 19:20] LABS: Calcium 7.6 mg/dL (8.5-10.1); Carbon Dioxide 27.8 meq/L (21.0-32.0); Potassium 3.4 meq/L (3.5-5.1)
[2018-03-08] MEDS: Furosemide 40 MG Tablet PO SCH (08:40)
[2018-03-08] MEDS: Calcitriol 0.25 MCG Capsule PO SCH (08:40)
[2018-03-08] MEDS: Sertraline 100 MG Tablet PO SCH (08:40)
[2018-03-08] MEDS: oxyCODONE/Acetaminophen 10/325 Tablet PO PRN ×2 (08:41→17:46)
[2018-03-08] MEDS: Metoprolol Tartrate 25 MG Tablet PO SCH ×2 (08:42→21:55)
[2018-03-08] MEDS: amLODIPine 5 MG Tablet PO SCH (08:42)
[2018-03-08] MEDS: Loratadine 10 MG Tablet PO SCH (08:42)
[2018-03-08] MEDS: Topiramate 25 MG Tablet PO SCH (08:43)
[2018-03-08] MEDS: Senna/Docusate Sodium 8.6/50 MG Tablet PO SCH ×2 (08:44→21:59)
[2018-03-08] MEDS: Pantoprazole Inj 40 MG Vial IV.PUSH SCH (08:44)
[2018-03-08] MEDS: Insulin NovoLOG Aspart Correctional Sugar Inj SQ SCH ×4 (09:28→21:52)
--- NOTE | 2018-03-08 10:54 | P.PNNP ---
Subjective Interval history: Resting comfortably with no acute changes overnight. Hemodialysis yesterday tolerated well. Physical Exam Vital signs: Vital Signs 03/07/18 12:00 03/07/18 16:00 03/07/18 20:00 Temperature 97.9 F 97.8 F 98.4 F Pulse Rate 75 83 78 Respiratory Rate 18 Blood Pressure 140/84 117/58 L 135/76 Pulse Oximetry 97 94 L 96 03/08/18 00:00 03/08/18 04:00 03/08/18 08:00 Temperature 98.3 F 98.2 F 98.0 F Pulse Rate 75 86 73 Respiratory Rate 18 Blood Pressure 137/83 112/64 169/101 H Pulse Oximetry 95 95 96 Intake & Output 03/07/18 03/08/18 03/08/18 18:59 06:59 18:59 Intake Total 600 / 600 Output Total 5300 / 5300 Balance -4700 / -4700 Weight 81.1 kg Intake: Oral 600 / 600 Output: Urine 300 / 300 Hemodialysis Amount 5000 / 5000 Other: Date of Last Bowel Movement 03/05/18 # Bowel Movements 0 Narrative: GENERAL: Alert and oriented. SKIN: Warm and dry. Left foot with chronic appearing wound CHEST: HD catheter left IJ. HEART: Heart regular. AVF in right wrist with positive thrill and bruit. LUNGS: Lungs are clear and equal bilaterally. ABDOMEN: Soft with positive bowel sounds. Non tender EXTREMITIES: Normal range of motion. PSYCH: Appropriate mood and affect. Assessment and Plan - Assessment (1) End stage renal disease on dialysis Code(s): N18.6 - End stage renal disease; Z99.2 - Dependence on renal dialysis Status: Chronic Plan: Patient has End stage renal disease on HD now TTS. AVF is not ready yet, AVF need more time for maturation. PermCath 02/20 left IJ Continue Epogen with dialysis Outpatient HD arranged/ [facility], 3:45pm chair time. Hemodialysis yesterday with removal of 4 liters of fluid Hemodialysis planned for tomorrow Awaiting LTC placement Labs in AM (2) DKA, type 1 Code(s): E10.10 - Type 1 diabetes mellitus with ketoacidosis without coma Status: Acute Qualifiers: Diabetes mellitus complication detail: without coma Qualified Code(s): E10.10 - Type 1 diabetes mellitus with ketoacidosis without coma Plan: Maintain blood sugars between 140 mg/dl to 180 mg/dl Insulin pump (3) Anemia Code(s): D64.9 - Anemia, unspecified Status: Chronic Plan: HGB stable Epogen with dialysis (4) Hypertension Code(s): I10 - Essential (primary) hypertension Status: Acute Plan: Well controlled, continue current treatment
--- NOTE | 2018-03-08 11:22 | P.PNIM ---
Subjective Interval history: in no distress. resting comfortably. Physical Exam Vital signs: Vital Signs 03/07/18 12:00 03/07/18 16:00 03/07/18 20:00 Temperature 97.9 F 97.8 F 98.4 F Pulse Rate 75 83 78 Respiratory Rate 18 16 18 Blood Pressure 140/84 117/58 L 135/76 Pulse Oximetry 97 94 L 96 03/08/18 00:00 03/08/18 04:00 03/08/18 08:00 Temperature 98.3 F 98.2 F 98.0 F Pulse Rate 75 86 73 Respiratory Rate 18 18 Blood Pressure 137/83 112/64 169/101 H Pulse Oximetry 95 95 96 Intake & Output 03/07/18 03/08/18 03/08/18 18:59 06:59 18:59 Intake Total 600 / 600 Output Total 5300 / 5300 Balance -4700 / -4700 Weight 81.1 kg Intake: Oral 600 / 600 Output: Urine 300 / 300 Hemodialysis Amount 5000 / 5000 Other: Date of Last Bowel Movement 03/05/18 # Bowel Movements 0 - Constitutional no acute distress - Routine Respiratory Exam Present: CTA bilaterally - Routine Cardiovascular Exam Present: RRR - Routine Abdominal Exam Present: soft - Routine Extremities Exam Comments: no pedal edema. - Routine Neurological Exam Present: alert, oriented X3 Results - Labs CBC & Chem 7: 03/07/18 06:31 03/07/18 18:03 Laboratory Results - last 24 hr 03/07/18 03/07/18 03/07/18 12:14 17:34 18:03 Sodium 143 Potassium 3.4 L Chloride 108 H Carbon Dioxide 27.8 Anion Gap 7 BUN 23 H Creatinine 3.30 H Estimated GFR 21 L POC Glucose 142 H 232 H Random Glucose 210 H Calcium 7.6 L 03/07/18 03/08/18 22:21 09:26 Sodium Potassium Chloride Carbon Dioxide Anion Gap BUN Creatinine Estimated GFR POC Glucose 225 H 219 H Random Glucose Calcium - Procedures RIGHT SIDE HD CATHETER PLACEMENT HD Assessment and Plan - Assessment (1) Diabetes type 1, uncontrolled Code(s): E10.65 - Type 1 diabetes mellitus with hyperglycemia Status: Acute (2) Hypertension Code(s): I10 - Essential (primary) hypertension Status: Chronic (3) End stage renal disease on dialysis Code(s): N18.6 - End stage renal disease; Z99.2 - Dependence on renal dialysis Status: Chronic (4) Anemia Code(s): D64.9 - Anemia, unspecified Status: Chronic - Plan 37 year old male with history of IDDM, HTN, DVT on Eliquis, 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 1. DKA on admission resolved - Patient is a brittle diabetic with dietary noncompliance - On admission, patient had ABG with pH 6.95, AG 33, and glucose 831 with associated Kussmaul breathing and renal failure - S/P insulin drip and DKA protocol 2. Type 1 DM - A1c 8.5 - Elevated Guard was following and his insulin pump was adjusted. Unfortunately , his pump came out - now Insulin pump has now been reinserted and functionally at this time. -At this time patient will adjust insulin pump based on blood sugar trends and carbohydrate intake. 3. HCAP - resolved - CXR 02/09 right infiltrate - S/p vancomycin and aztreonam - Repeat CXR 02/15 with no acute cardiopulmonary disease - Repeat CXR 02/26 showing some bibasilar airspace disease and in this clinical setting I believe it is atelectasis - Incentive spirometer - Supplemental O2 to maintain sats >92% - Monitor for signs of infection 4. ESRD - Nephrology following - Fistula in place however not yet mature. Permacath placed 02/20 - Outpatient chair time has been arranged MWF - Avoid nephrotoxins - Percocet PRN for pain at Permacath site 5. Hematochezia - GI consulted - S/P EGD/colonoscopy on 02/16. EGD was normal except irregular Z line biopsy was done. Colonoscopy showed multiple polyps, 1 of them was flat and large which could be a reason for bleeding. S/P polypectomy - Recommendations to repeat colonoscopy in 3 months, okay to discharge from GI standpoint - Monitor CBC while on Eliquis 6. Hypokalemia, mild - Managed with HD 7. History of DVT - Continue Eliquis 8. HTN, chronic essential -Blood pressures much better improved - Continue amlodipine. - Hydralazine increased to to 100 mg TID - Started metoprolol 25 mg BID (HR in the 90-100s) - Clonidine PRN 9. Anemia of chronic kidney disease - Iron studies suggest combination of anemia of chronic disease and iron deficiency - Hemodynamically stable - Continue to monitor - Epogen with dialysis 10. L Heel wound - Appears chronic, not acutely infected or significantly draining - Wound care nurse consulted * Cleanse left lateral heel wound with NS Q3D and PRN for saturation or dislodgement * Apply Cavilon skin barrier film to periwound and allow to dry * Place Optifoam AG over wound bed and secure with dry cover and date dressing. * Keep heel elevated off mattress surface at all times 11. R wrist pain - XR showing subacute fracture involving the distal third of the ulna - Ortho consulted no further intervention, no need for splint or cast - Analgesics PRN - Continue Lyrica 12- C- diff colitis; started on oral Vanco . Patient with multiple comorbid conditions as described above and poor social situation. PT recommending long-term placement. DVT prophylaxis: on Eliquis Discharge Planning: case management working on placement. (1) Diabetes type 1, uncontrolled Qualifiers: Diabetes mellitus complication detail: with diabetic retinopathy
[2018-03-08] MEDS ORDERED: [UNRECOGNIZED DRUG - REMARK] PUMP.IMPL SCH (22:53)
[2018-03-09] MEDS: oxyCODONE/Acetaminophen 10/325 Tablet PO PRN ×3 (03:43→23:05)
[2018-03-09 09:31] LABS: Albumin 2.2 g/dL (3.4-5.0); Calcium 7.5 mg/dL (8.5-10.1); Carbon Dioxide 25.4 meq/L (21.0-32.0); Phosphorus 6.4 mg/dL (2.5-4.9); Potassium 3.9 meq/L (3.5-5.1)
[2018-03-09] MEDS: Insulin NovoLOG Aspart Correctional Sugar Inj SQ SCH ×4 (10:14→23:02)
[2018-03-09] MEDS: Topiramate 25 MG Tablet PO SCH (12:42)
[2018-03-09] MEDS: Metoprolol Tartrate 25 MG Tablet PO SCH ×2 (12:43→21:44)
[2018-03-09] MEDS: Sertraline 100 MG Tablet PO SCH (12:43)
[2018-03-09] MEDS: Calcitriol 0.25 MCG Capsule PO SCH (12:43)
[2018-03-09] MEDS: Furosemide 40 MG Tablet PO SCH (12:44)
[2018-03-09] MEDS: Loratadine 10 MG Tablet PO SCH (12:44)
[2018-03-09] MEDS: Senna/Docusate Sodium 8.6/50 MG Tablet PO SCH ×2 (12:45→21:49)
[2018-03-09] MEDS: Pantoprazole Inj 40 MG Vial IV.PUSH SCH (12:45)
[2018-03-09] MEDS: amLODIPine 5 MG Tablet PO SCH (12:45)
--- NOTE | 2018-03-09 13:40 | P.PNIM ---
Subjective Interval history: in no acute distress. had his HD earlier today; feels a little tired. Physical Exam Vital signs: Vital Signs 03/08/18 16:00 03/08/18 20:00 03/09/18 00:00 Temperature 98.3 F 97.5 F L 97.4 F L Pulse Rate 78 68 68 Respiratory Rate 20 20 20 Blood Pressure 134/67 130/79 137/85 Pulse Oximetry 97 97 95 03/09/18 04:00 03/09/18 08:00 Temperature 97.5 F L 98.0 F Pulse Rate 68 75 Respiratory Rate 20 17 Blood Pressure 135/80 153/88 H Pulse Oximetry 98 98 Intake & Output 03/08/18 03/09/18 03/09/18 18:59 06:59 18:59 Intake Total 1096 / 1096 240 / 240 Output Total 900 / 900 3000 / 3000 Balance 196 / 196 240 / 240 -3000 / -3000 Weight 81.5 kg Intake: Oral 1096 / 1096 240 / 240 Output: Urine 900 / 900 Hemodialysis Amount 3000 / 3000 Other: # Voids 3 # Bowel Movements 0 - Constitutional no acute distress - Routine Respiratory Exam Present: CTA bilaterally - Routine Cardiovascular Exam Present: RRR - Routine Abdominal Exam Present: soft Results - Labs CBC & Chem 7: 03/07/18 06:31 03/09/18 07:03 Laboratory Results - last 24 hr 03/08/18 03/08/18 03/08/18 17:50 20:34 21:52 Sodium Potassium Chloride Carbon Dioxide Anion Gap BUN Creatinine Estimated GFR POC Glucose 377 H 426 H 433 H Random Glucose Calcium Phosphorus Albumin 03/08/18 03/09/18 03/09/18 23:39 03:46 07:03 Sodium 141 Potassium 3.9 Chloride 105 Carbon Dioxide 25.4 Anion Gap 11 BUN 41 H Creatinine 4.89 H Estimated GFR 14 L POC Glucose 417 H 352 H Random Glucose 241 H Calcium 7.5 L Phosphorus 6.4 H Albumin 2.2 L 03/09/18 03/09/18 09:45 11:47 Sodium Potassium Chloride Carbon Dioxide Anion Gap BUN Creatinine Estimated GFR POC Glucose 155 H 125 H Random Glucose Calcium Phosphorus Albumin - Procedures RIGHT SIDE HD CATHETER PLACEMENT HD Assessment and Plan - Assessment (1) Diabetes type 1, uncontrolled Code(s): E10.65 - Type 1 diabetes mellitus with hyperglycemia Status: Acute (2) Hypertension Code(s): I10 - Essential (primary) hypertension Status: Chronic (3) End stage renal disease on dialysis Code(s): N18.6 - End stage renal disease; Z99.2 - Dependence on renal dialysis Status: Chronic (4) Anemia Code(s): D64.9 - Anemia, unspecified Status: Chronic - Plan 37 year old male with history of IDDM, HTN, DVT on Eliquis, 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 1. DKA on admission resolved - Patient is a brittle diabetic with dietary noncompliance - On admission, patient had ABG with pH 6.95, AG 33, and glucose 831 with associated Kussmaul breathing and renal failure - S/P insulin drip and DKA protocol -now on insulin pump. ( his commodity director; ; [phone]) 2. Type 1 DM - A1c 8.5 - Video Production Specialist was following and his insulin pump was adjusted. Unfortunately , his pump came out - now Insulin pump has now been reinserted and functionally at this time. -At this time patient will adjust insulin pump based on blood sugar trends and carbohydrate intake. 3. HCAP - resolved - CXR 02/09 right infiltrate - S/p vancomycin and aztreonam - Repeat CXR 02/15 with no acute cardiopulmonary disease - Repeat CXR 02/26 showing some bibasilar airspace disease and in this clinical setting I believe it is atelectasis - Incentive spirometer - Supplemental O2 to maintain sats >92% - Monitor for signs of infection 4. ESRD - Nephrology following - Fistula in place however not yet mature. Permacath placed 02/20 - Outpatient chair time has been arranged MWF - Avoid nephrotoxins - Percocet PRN for pain at Permacath site 5. Hematochezia - GI consulted - S/P EGD/colonoscopy on 02/16. EGD was normal except irregular Z line biopsy was done. Colonoscopy showed multiple polyps, 1 of them was flat and large which could be a reason for bleeding. S/P polypectomy - Recommendations to repeat colonoscopy in 3 months, okay to discharge from GI standpoint - Monitor CBC while on Eliquis 6. Hypokalemia, mild - Managed with HD 7. History of DVT - Continue Eliquis 8. HTN, chronic essential -Blood pressures much better improved - Continue amlodipine. - Hydralazine increased to to 100 mg TID - Started metoprolol 25 mg BID (HR in the 90-100s) - Clonidine PRN 9. Anemia of chronic kidney disease - Iron studies suggest combination of anemia of chronic disease and iron deficiency - Hemodynamically stable - Continue to monitor - Epogen with dialysis 10. L Heel wound - Appears chronic, not acutely infected or significantly draining - Wound care nurse consulted * Cleanse left lateral heel wound with NS Q3D and PRN for saturation or dislodgement * Apply Cavilon skin barrier film to periwound and allow to dry * Place Optifoam AG over wound bed and secure with dry cover and date dressing. * Keep heel elevated off mattress surface at all times 11. R wrist pain - XR showing subacute fracture involving the distal third of the ulna - Ortho consulted no further intervention, no need for splint or cast - Analgesics PRN - Continue Lyrica 12- C- diff colitis; started on oral Vanco . Patient with multiple comorbid conditions as described above and poor social situation. PT recommending long-term placement. DVT prophylaxis: on Eliquis Discharge Planning: case management working on placement. (1) Diabetes type 1, uncontrolled Qualifiers: Diabetes mellitus complication detail: with diabetic retinopathy
--- NOTE | 2018-03-09 15:20 | P.PNNP ---
Subjective Interval history: REASON FOR CONSULTATION: Chronic kidney disease with advanced renal failure, came with hyperkalemia and severe metabolic acidosis. HISTORY OF PRESENT ILLNESS: AT THE TIME OF ADMISSION I was called to see the patient because of advanced renal disease. The patient was seen by me when he was admitted last time; this was 2-3 weeks ago and then he was discharged just last week. The patient has history of hypertension, diabetes mellitus, history of DVT, blindness in the right eye with diabetic retinopathy, left foot ulcer, recent diabetic ketoacidosis, chronic kidney disease, advanced stage IV renal failure. He came to the hospital with complaint of diarrhea, nausea, vomiting, and feeling weak. I was called to see the patient because of very high BUN and creatinine. The patient has a history of advanced stage IV renal disease. He has a fistula in the right arm, but has never been started on dialysis. He was discharged recently with a creatinine of 3.7. Now, he came with a creatinine of 4.9 and a very high potassium of 6.4 and bicarbonate less than 5 with a pH of 6.95. The patient was found to be severely acidotic with an anion gap of 33. He is started on diabetic ketoacidosis protocol and was given the bicarbonate and insulin. The patient also has nausea and, according to him, he has been taking his medications. The patient lives with a roommate who called EMS. The patient has mild shortness of breath. PAST MEDICAL HISTORY: Hypertension, diabetes mellitus, chronic anemia, peripheral vascular disease, diabetic retinopathy, chronic kidney disease. PAST SURGICAL HISTORY: History of right A-V fistula surgery. SOCIAL HISTORY: The patient is single. He lives with a roommate. There is no history of smoking or alcoholism. FAMILY HISTORY: Noncontributory. ALLERGIES: ALLERGIC TO MULTIPLE MEDICATIONS INCLUDING AMOXICILLIN AND PENICILLIN G. Subjective Interval history: 8: 17 :2018 Patient denies nausea, vomiting, diarrhea, fever, chills chest pain and dyspnea ; relates of increasing pain and wants to request pain medicine consultation after reviewing this with his primary care team REVIEW OF SYSTEMS: GENERAL: POSITIVE for fatigue. Eyes: Negative for eye pain. ENT: Negative for earache RESP: Negative for cough. CV: negative for chest pain. GI: Negative for abdominal pain. -MALE:Negative for hematuria Musculoskeletal: POSITIVE for joint pain involving feet BACK: No Pain SKIN: Negative for rash. NEURO: Negative for seizures. PSYCHE: Negative for depression. Lymph: No Lymph node enlargement Physical Exam Vital signs: Vital Signs 03/08/18 16:00 03/08/18 20:00 03/09/18 00:00 Temperature 98.3 F 97.5 F L 97.4 F L Pulse Rate 78 68 68 Respiratory Rate 20 20 20 Blood Pressure 134/67 130/79 137/85 Pulse Oximetry 97 97 95 03/09/18 04:00 03/09/18 08:00 Temperature 97.5 F L 98.0 F Pulse Rate 68 75 Respiratory Rate 20 17 Blood Pressure 135/80 153/88 H Pulse Oximetry 98 98 Intake & Output 03/08/18 03/09/18 03/09/18 18:59 06:59 18:59 Intake Total 1096 / 1096 240 / 240 Output Total 900 / 900 3000 / 3000 Balance 196 / 196 240 / 240 -3000 / -3000 Weight 81.5 kg Intake: Oral 1096 / 1096 240 / 240 Output: Urine 900 / 900 Hemodialysis Amount 3000 / 3000 Other: # Voids 3 # Bowel Movements 0 Narrative: Examination : GENERAL APPEARANCE: in no acute distress. HEENT:: normocephalic, atraumatic NECK :no cervical lymphadenopathy. ORAL CAVITY: mucosa moist. CHEST:normal SKIN: no suspicious lesions. HEART: no murmurs. LUNGS: clear to auscultation bilaterally. BREASTS: not examined. ABDOMEN: soft, nontender. BACK: No paraspinal muscle spasm. MALE GENITOURINARY: not examined. MUSCULOSKELETAL: normal. EXTREMITIES: 1+ edema every fistula right wrist with a positive thrill FOOT EXAM : PERIPHERAL PULSES: normal. NEUROLOGIC: nonfocal. PSYCH: normal. Assessment and Plan - Assessment (1) Chronic kidney disease, stage 4, severely decreased GFR Code(s): N18.4 - Chronic kidney disease, stage 4 (severe) Status: Acute - Plan ssessment (1) Chronic kidney disease, stage 4, severely decreased GFR Code(s): N18.4 - Chronic kidney disease, stage 4 (severe) Status: Acute - Plan #: N18.6 :ESRD-Standard care for ESRD patient --Periodic dialysis based on clinical symptoms laboratory results and volume status --with adequacy monitoring --as well as monitoring for anemia, nutrition, bone disease, blood pressure control, --monitor access adequacy, and complications . #: OTHER PROBLEMS: [Diabetes with history of diabetic ketoacidosis, anemia, hypertension anemia from ESRD currently on Epogen;, stable] PLAN: Defer to hospitalist/primary care team s
[2018-03-10] MEDS: Furosemide 40 MG Tablet PO SCH (08:59)
[2018-03-10] MEDS: Topiramate 25 MG Tablet PO SCH (08:59)
[2018-03-10] MEDS: Pantoprazole Inj 40 MG Vial IV.PUSH SCH (08:59)
[2018-03-10] MEDS: Sertraline 100 MG Tablet PO SCH (08:59)
[2018-03-10] MEDS: amLODIPine 5 MG Tablet PO SCH (08:59)
[2018-03-10] MEDS: oxyCODONE/Acetaminophen 10/325 Tablet PO PRN ×4 (08:59→21:25)
[2018-03-10] MEDS: Calcitriol 0.25 MCG Capsule PO SCH (09:00)
[2018-03-10] MEDS: Insulin NovoLOG Aspart Correctional Sugar Inj SQ SCH ×4 (09:00→20:06)
[2018-03-10] MEDS: Loratadine 10 MG Tablet PO SCH (09:00)
[2018-03-10] MEDS: Metoprolol Tartrate 25 MG Tablet PO SCH ×2 (09:01→21:25)
[2018-03-10] MEDS: Senna/Docusate Sodium 8.6/50 MG Tablet PO SCH ×2 (09:01→22:26)
--- NOTE | 2018-03-10 11:27 | P.PNIM ---
Subjective Interval history: in no distress. although looks comfortable , asking for pain meds. diarrhea has resolved. no fever. blood sugar trend noted. Physical Exam Vital signs: Vital Signs 03/09/18 16:00 03/09/18 20:00 03/10/18 00:00 Temperature 98.3 F 98.0 F 97.3 F L Pulse Rate 82 81 76 Respiratory Rate 17 20 20 Blood Pressure 109/56 L 107/57 L 118/60 Pulse Oximetry 95 92 L 97 03/10/18 04:00 03/10/18 10:30 Temperature 98.2 F 98.2 F Pulse Rate 81 86 Respiratory Rate 20 18 Blood Pressure 118/62 122/74 Pulse Oximetry 95 97 Intake & Output 03/09/18 03/10/18 03/10/18 18:59 06:59 18:59 Intake Total 480 / 480 222 / 222 Output Total 3000 / 3000 Balance -2520 / -2520 222 / 222 Weight 82.2 kg Intake: Oral 480 / 480 222 / 222 Output: Hemodialysis Amount 3000 / 3000 Other: # Voids 2 Date of Last Bowel Movement 03/06/18 # Bowel Movements 0 1 - Constitutional no acute distress - Routine Respiratory Exam Present: CTA bilaterally - Routine Cardiovascular Exam Present: RRR - Routine Abdominal Exam Present: soft - Routine Extremities Exam Comments: no pedal edema. Results - Labs CBC & Chem 7: 03/07/18 06:31 03/09/18 07:03 Laboratory Results - last 24 hr 03/09/18 03/09/18 03/09/18 11:47 17:53 17:54 POC Glucose 125 H 513 H* 468 H* 03/09/18 03/09/18 03/10/18 21:42 23:07 08:09 POC Glucose 461 H* 420 H 286 H - Procedures RIGHT SIDE HD CATHETER PLACEMENT HD Assessment and Plan - Assessment (1) Diabetes type 1, uncontrolled Code(s): E10.65 - Type 1 diabetes mellitus with hyperglycemia Status: Acute (2) Hypertension Code(s): I10 - Essential (primary) hypertension Status: Chronic (3) End stage renal disease on dialysis Code(s): N18.6 - End stage renal disease; Z99.2 - Dependence on renal dialysis Status: Chronic (4) Anemia Code(s): D64.9 - Anemia, unspecified Status: Chronic - Plan 37 year old male with history of IDDM, HTN, DVT on Eliquis, 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 1. DKA on admission resolved - Patient is a brittle diabetic with dietary noncompliance - On admission, patient had ABG with pH 6.95, AG 33, and glucose 831 with associated Kussmaul breathing and renal failure - S/P insulin drip and DKA protocol -now on insulin pump. ( his top installer; ; [phone]) -refusing long-acting insulin. 2. Type 1 DM - A1c 8.5 - Level Vial Inside Grinder was following and his insulin pump was adjusted. Unfortunately , his pump came out - now Insulin pump has now been reinserted and functionally at this time. -At this time patient will adjust insulin pump based on blood sugar trends and carbohydrate intake. 3. HCAP - resolved - CXR 02/09 right infiltrate - S/p vancomycin and aztreonam - Repeat CXR 02/15 with no acute cardiopulmonary disease - Repeat CXR 02/26 showing some bibasilar airspace disease and in this clinical setting I believe it is atelectasis - Incentive spirometer - Supplemental O2 to maintain sats >92% - Monitor for signs of infection 4. ESRD - Nephrology following - Fistula in place however not yet mature. Permacath placed 02/20 - Outpatient chair time has been arranged MWF - Avoid nephrotoxins - Percocet PRN for pain at Permacath site 5. Hematochezia - GI consulted - S/P EGD/colonoscopy on 02/16. EGD was normal except irregular Z line biopsy was done. Colonoscopy showed multiple polyps, 1 of them was flat and large which could be a reason for bleeding. S/P polypectomy - Recommendations to repeat colonoscopy in 3 months, okay to discharge from GI standpoint - Monitor CBC while on Eliquis 6. Hypokalemia, mild - Managed with HD 7. History of DVT - Continue Eliquis 8. HTN, chronic essential -Blood pressures much better improved - Continue amlodipine. - Hydralazine increased to to 100 mg TID - Started metoprolol 25 mg BID (HR in the 90-100s) - Clonidine PRN 9. Anemia of chronic kidney disease - Iron studies suggest combination of anemia of chronic disease and iron deficiency - Hemodynamically stable - Continue to monitor - Epogen with dialysis 10. L Heel wound - Appears chronic, not acutely infected or significantly draining - Wound care nurse consulted * Cleanse left lateral heel wound with NS Q3D and PRN for saturation or dislodgement * Apply Cavilon skin barrier film to periwound and allow to dry * Place Optifoam AG over wound bed and secure with dry cover and date dressing. * Keep heel elevated off mattress surface at all times 11. R wrist pain - XR showing subacute fracture involving the distal third of the ulna - Ortho consulted no further intervention, no need for splint or cast - Analgesics PRN - Continue Lyrica 12- C- diff colitis; clinically improved- continue oral Vanco . Patient with multiple comorbid conditions as described above and poor social situation. PT recommending long-term placement. DVT prophylaxis: on Eliquis Discharge Planning: HD to be arranged.might need placement. (1) Diabetes type 1, uncontrolled Qualifiers: Diabetes mellitus complication detail: with diabetic retinopathy
[2018-03-11] MEDS: Insulin NovoLOG Aspart Correctional Sugar Inj SQ SCH ×4 (08:55→22:01)
[2018-03-11] MEDS: Pantoprazole Inj 40 MG Vial IV.PUSH SCH (08:56)
[2018-03-11] MEDS: amLODIPine 5 MG Tablet PO SCH (08:56)
[2018-03-11] MEDS: Metoprolol Tartrate 25 MG Tablet PO SCH ×2 (08:57→21:59)
[2018-03-11] MEDS: Sertraline 100 MG Tablet PO SCH (08:57)
[2018-03-11] MEDS: Loratadine 10 MG Tablet PO SCH (08:57)
[2018-03-11] MEDS: Furosemide 40 MG Tablet PO SCH (08:57)
[2018-03-11] MEDS: Topiramate 25 MG Tablet PO SCH (08:57)
[2018-03-11] MEDS: Calcitriol 0.25 MCG Capsule PO SCH (08:57)
[2018-03-11] MEDS: oxyCODONE/Acetaminophen 10/325 Tablet PO PRN ×4 (08:57→21:59)
[2018-03-11] MEDS: Senna/Docusate Sodium 8.6/50 MG Tablet PO SCH ×2 (08:58→22:01)
--- NOTE | 2018-03-11 13:48 | P.PNIM ---
Subjective Interval history: in no acute distress. has some pain to the legs. otherwise no other new complaints. d/w the RN. Physical Exam Vital signs: Vital Signs 03/10/18 16:00 03/10/18 20:00 03/11/18 00:00 Temperature 97.6 F 97.5 F L 98.1 F Pulse Rate 76 70 74 Respiratory Rate 18 Blood Pressure 102/59 L 99/56 L 96/52 L Pulse Oximetry 95 95 95 03/11/18 04:00 03/11/18 08:00 03/11/18 12:00 Temperature 97.9 F 98.1 F 97.5 F L Pulse Rate 79 82 83 Respiratory Rate 16 Blood Pressure 101/55 L 126/73 115/66 Pulse Oximetry 95 96 95 Intake & Output 03/10/18 03/11/18 03/11/18 18:59 06:59 18:59 Intake Total 480 / 480 Balance 480 / 480 Weight 87.2 kg Intake: Oral 480 / 480 Other: # Voids 2 Date of Last Bowel Movement 03/06/18 03/06/18 03/10/18 - Constitutional no acute distress - Routine Respiratory Exam Present: CTA bilaterally - Routine Cardiovascular Exam Present: RRR - Routine Abdominal Exam Present: soft Results - Labs CBC & Chem 7: 03/07/18 06:31 03/09/18 07:03 Laboratory Results - last 24 hr 03/10/18 03/10/18 03/11/18 16:36 19:58 07:42 POC Glucose 127 H 107 347 H 03/11/18 11:46 POC Glucose 150 H - Procedures RIGHT SIDE HD CATHETER PLACEMENT HD Assessment and Plan - Assessment (1) Diabetes type 1, uncontrolled Code(s): E10.65 - Type 1 diabetes mellitus with hyperglycemia Status: Acute (2) Hypertension Code(s): I10 - Essential (primary) hypertension Status: Chronic (3) End stage renal disease on dialysis Code(s): N18.6 - End stage renal disease; Z99.2 - Dependence on renal dialysis Status: Chronic (4) Anemia Code(s): D64.9 - Anemia, unspecified Status: Chronic - Plan 37 year old male with history of IDDM, HTN, DVT on Eliquis, 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 1. DKA on admission resolved - Patient is a brittle diabetic with dietary noncompliance - On admission, patient had ABG with pH 6.95, AG 33, and glucose 831 with associated Kussmaul breathing and renal failure - S/P insulin drip and DKA protocol -now on insulin pump. ( his brake press operator; ; [phone]) -refusing long-acting insulin. 2. Type 1 DM - A1c 8.5 - Medical Records Technician was following and his insulin pump was adjusted. Unfortunately , his pump came out - now Insulin pump has now been reinserted and functionally at this time. -At this time patient will adjust insulin pump based on blood sugar trends and carbohydrate intake. 3. HCAP - resolved - CXR 02/09 right infiltrate - S/p vancomycin and aztreonam - Repeat CXR 02/15 with no acute cardiopulmonary disease - Repeat CXR 02/26 showing some bibasilar airspace disease and in this clinical setting I believe it is atelectasis - Incentive spirometer - Supplemental O2 to maintain sats >92% - Monitor for signs of infection 4. ESRD - Nephrology following - Fistula in place however not yet mature. Permacath placed 02/20 - Outpatient chair time has been arranged MWF - Avoid nephrotoxins - Percocet PRN for pain at Permacath site 5. Hematochezia - GI consulted - S/P EGD/colonoscopy on 02/16. EGD was normal except irregular Z line biopsy was done. Colonoscopy showed multiple polyps, 1 of them was flat and large which could be a reason for bleeding. S/P polypectomy - Recommendations to repeat colonoscopy in 3 months, okay to discharge from GI standpoint - Monitor CBC while on Eliquis 6. Hypokalemia, mild - Managed with HD 7. History of DVT - Continue Eliquis 8. HTN, chronic essential -Blood pressures much better improved - Continue amlodipine. - Hydralazine increased to to 100 mg TID - Started metoprolol 25 mg BID (HR in the 90-100s) - Clonidine PRN 9. Anemia of chronic kidney disease - Iron studies suggest combination of anemia of chronic disease and iron deficiency - Hemodynamically stable - Continue to monitor - Epogen with dialysis 10. L Heel wound - Appears chronic, not acutely infected or significantly draining - Wound care nurse consulted * Cleanse left lateral heel wound with NS Q3D and PRN for saturation or dislodgement * Apply Cavilon skin barrier film to periwound and allow to dry * Place Optifoam AG over wound bed and secure with dry cover and date dressing. * Keep heel elevated off mattress surface at all times 11. R wrist pain - XR showing subacute fracture involving the distal third of the ulna - Ortho consulted no further intervention, no need for splint or cast - Analgesics PRN - Continue Lyrica 12- C- diff colitis; clinically improved- continue oral Vanco . Patient with multiple comorbid conditions as described above and poor social situation. PT recommending long-term placement. DVT prophylaxis: on Eliquis Discharge Planning: HD to be arranged.might need placement. (1) Diabetes type 1, uncontrolled Qualifiers: Diabetes mellitus complication detail: with diabetic retinopathy
--- NOTE | 2018-03-12 09:45 | P.PNNP ---
Subjective Interval history: Seen during hemodialysis tolerating well. Denies any shortness of breath, nauseas, vomiting, or dysuria. Physical Exam Vital signs: Vital Signs 03/11/18 12:00 03/11/18 16:00 03/11/18 20:00 Temperature 97.5 F L 97.1 F L 97.9 F Pulse Rate 83 78 82 Respiratory Rate Blood Pressure 115/66 125/73 109/63 Pulse Oximetry 95 95 94 L 03/12/18 00:00 03/12/18 04:00 03/12/18 08:00 Temperature 97.8 F 97.8 F 97.9 F Pulse Rate 80 81 83 Respiratory Rate Blood Pressure 138/82 132/77 148/83 H Pulse Oximetry 96 97 92 L Intake & Output 03/11/18 03/12/18 03/12/18 18:59 06:59 18:59 Intake Total 240 / 240 Balance 240 / 240 Intake: Oral 240 / 240 Other: # Voids 0 Date of Last Bowel Movement 03/10/18 03/11/18 Narrative: GENERAL: Alert and oriented. SKIN: Warm and dry. Left foot with chronic appearing wound CHEST: HD catheter left IJ. HEART: Heart regular. AVF in right wrist with positive thrill and bruit. LUNGS: Lungs are clear and equal bilaterally. ABDOMEN: Soft with positive bowel sounds. Non tender EXTREMITIES: Normal range of motion. PSYCH: Appropriate mood and affect. Assessment and Plan - Assessment (1) End stage renal disease on dialysis Code(s): N18.6 - End stage renal disease; Z99.2 - Dependence on renal dialysis Status: Chronic Plan: Patient has End stage renal disease on HD now TTS. AVF is not ready yet, AVF need more time for maturation. PermCath 02/20 left IJ Continue Epogen with dialysis Outpatient HD arranged/ [facility] [place], 2:15 PM Chair time has been changed to above. Seen during hemodialysis tolerating well will remove fluid as tolerated. Labs pending today (2) DKA, type 1 Code(s): E10.10 - Type 1 diabetes mellitus with ketoacidosis without coma Status: Acute Qualifiers: Diabetes mellitus complication detail: without coma Qualified Code(s): E10.10 - Type 1 diabetes mellitus with ketoacidosis without coma Plan: Maintain blood sugars between 140 mg/dl to 180 mg/dl Insulin pump (3) Anemia Code(s): D64.9 - Anemia, unspecified Status: Chronic Plan: HGB stable Epogen with dialysis (4) Hypertension Code(s): I10 - Essential (primary) hypertension Status: Acute Plan: Well controlled, continue current treatment
[2018-03-12 10:16] LABS: Calcium 7.6 mg/dL (8.5-10.1); Potassium 4.4 meq/L (3.5-5.1)
--- NOTE | 2018-03-12 10:38 | P.PNIM ---
Subjective Interval history: in no distress. no new complaints. afebrile. waiting for HD today. Physical Exam Vital signs: Vital Signs 03/11/18 12:00 03/11/18 16:00 03/11/18 20:00 Temperature 97.5 F L 97.1 F L 97.9 F Pulse Rate 83 78 82 Respiratory Rate 18 Blood Pressure 115/66 125/73 109/63 Pulse Oximetry 95 95 94 L 03/12/18 00:00 03/12/18 04:00 03/12/18 08:00 Temperature 97.8 F 97.8 F 97.9 F Pulse Rate 80 81 83 Respiratory Rate 18 Blood Pressure 138/82 132/77 148/83 H Pulse Oximetry 96 97 92 L Intake & Output 03/11/18 03/12/18 03/12/18 18:59 06:59 18:59 Intake Total 240 / 240 Balance 240 / 240 Intake: Oral 240 / 240 Other: # Voids 0 Date of Last Bowel Movement 03/10/18 03/11/18 - Constitutional no acute distress - Routine Respiratory Exam Present: CTA bilaterally - Routine Cardiovascular Exam Present: RRR - Routine Abdominal Exam Present: soft - Routine Extremities Exam Comments: no pedal edema. - Routine Neurological Exam Present: alert, oriented X3 Results - Labs CBC & Chem 7: 03/07/18 06:31 03/12/18 09:05 Laboratory Results - last 24 hr 03/11/18 03/11/18 03/11/18 11:46 16:54 20:01 Sodium Potassium Chloride Carbon Dioxide Anion Gap BUN Creatinine Estimated GFR POC Glucose 150 H 72 178 H Random Glucose Calcium 03/12/18 03/12/18 08:49 09:05 Sodium 138 Potassium 4.4 Chloride 106 Carbon Dioxide 22.0 Anion Gap 10 BUN 54 H Creatinine 6.13 H Estimated GFR 10 L POC Glucose 371 H Random Glucose 359 H Calcium 7.6 L - Procedures RIGHT SIDE HD CATHETER PLACEMENT HD Assessment and Plan - Assessment (1) Diabetes type 1, uncontrolled Code(s): E10.65 - Type 1 diabetes mellitus with hyperglycemia Status: Acute (2) Hypertension Code(s): I10 - Essential (primary) hypertension Status: Chronic (3) End stage renal disease on dialysis Code(s): N18.6 - End stage renal disease; Z99.2 - Dependence on renal dialysis Status: Chronic (4) Anemia Code(s): D64.9 - Anemia, unspecified Status: Chronic - Plan 37 year old male with history of IDDM, HTN, DVT on Eliquis, 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 1. DKA on admission resolved - Patient is a brittle diabetic with dietary noncompliance - On admission, patient had ABG with pH 6.95, AG 33, and glucose 831 with associated Kussmaul breathing and renal failure - S/P insulin drip and DKA protocol -now on insulin pump. ( his pulmonologist; ; [phone]) -refusing long-acting insulin. 2. Type 1 DM - A1c 8.5 - Data Entry Representative was following and his insulin pump was adjusted. Unfortunately , his pump came out - now Insulin pump has now been reinserted and functionally at this time. -At this time patient will adjust insulin pump based on blood sugar trends and carbohydrate intake. 3. HCAP - resolved - CXR 02/09 right infiltrate - S/p vancomycin and aztreonam - Repeat CXR 02/15 with no acute cardiopulmonary disease - Repeat CXR 02/26 showing some bibasilar airspace disease and in this clinical setting I believe it is atelectasis - Incentive spirometer - Supplemental O2 to maintain sats >92% - Monitor for signs of infection 4. ESRD - Nephrology following - Fistula in place however not yet mature. Permacath placed 02/20 - Outpatient chair time has been arranged MWF - Avoid nephrotoxins - Percocet PRN for pain at Permacath site 5. Hematochezia - GI consulted - S/P EGD/colonoscopy on 02/16. EGD was normal except irregular Z line biopsy was done. Colonoscopy showed multiple polyps, 1 of them was flat and large which could be a reason for bleeding. S/P polypectomy - Recommendations to repeat colonoscopy in 3 months, okay to discharge from GI standpoint - Monitor CBC while on Eliquis 6. Hypokalemia, mild - Managed with HD 7. History of DVT - Continue Eliquis 8. HTN, chronic essential -Blood pressures much better improved - Continue amlodipine. - Hydralazine increased to to 100 mg TID - Started metoprolol 25 mg BID (HR in the 90-100s) - Clonidine PRN 9. Anemia of chronic kidney disease - Iron studies suggest combination of anemia of chronic disease and iron deficiency - Hemodynamically stable - Continue to monitor - Epogen with dialysis 10. L Heel wound - Appears chronic, not acutely infected or significantly draining - Wound care nurse consulted * Cleanse left lateral heel wound with NS Q3D and PRN for saturation or dislodgement * Apply Cavilon skin barrier film to periwound and allow to dry * Place Optifoam AG over wound bed and secure with dry cover and date dressing. * Keep heel elevated off mattress surface at all times 11. R wrist pain - XR showing subacute fracture involving the distal third of the ulna - Ortho consulted no further intervention, no need for splint or cast - Analgesics PRN - Continue Lyrica 12- C- diff colitis; clinically improved- continue oral Vanco . DVT prophylaxis: on Eliquis Discharge Planning: HD to be arranged. patient wants to go home. previously d/w the case management. (1) Diabetes type 1, uncontrolled Qualifiers: Diabetes mellitus complication detail: with diabetic retinopathy
[2018-03-12] MEDS: Topiramate 25 MG Tablet PO SCH (12:51)
[2018-03-12] MEDS: Metoprolol Tartrate 25 MG Tablet PO SCH ×2 (12:52→21:04)
[2018-03-12] MEDS: Pantoprazole Inj 40 MG Vial IV.PUSH SCH (12:53)
[2018-03-12] MEDS: Furosemide 40 MG Tablet PO SCH (12:53)
[2018-03-12] MEDS: Sertraline 100 MG Tablet PO SCH (12:54)
[2018-03-12] MEDS: amLODIPine 5 MG Tablet PO SCH (12:54)
[2018-03-12] MEDS: Calcitriol 0.25 MCG Capsule PO SCH (12:58)
[2018-03-12] MEDS: Senna/Docusate Sodium 8.6/50 MG Tablet PO SCH ×2 (12:58→21:04)
[2018-03-12] MEDS: Loratadine 10 MG Tablet PO SCH (12:59)
[2018-03-12] MEDS: Heparin 10,000 UNITS/10 ML Vial (for IV use) OTHER PRN (15:17)
[2018-03-12] MEDS: Insulin NovoLOG Aspart Correctional Sugar Inj SQ SCH ×3 (15:25→17:22)
[2018-03-12] MEDS: oxyCODONE/Acetaminophen 10/325 Tablet PO PRN (21:05)
[2018-03-13] MEDS: Insulin NovoLOG Aspart Correctional Sugar Inj SQ SCH ×5 (00:19→21:06)
[2018-03-13] MEDS: oxyCODONE/Acetaminophen 10/325 Tablet PO PRN ×3 (08:20→21:03)
[2018-03-13] MEDS: Topiramate 25 MG Tablet PO SCH (08:21)
[2018-03-13] MEDS: Pantoprazole Inj 40 MG Vial IV.PUSH SCH (08:21)
[2018-03-13] MEDS: Senna/Docusate Sodium 8.6/50 MG Tablet PO SCH ×2 (08:21→21:03)
[2018-03-13] MEDS: Calcitriol 0.25 MCG Capsule PO SCH (08:21)
[2018-03-13] MEDS: Sertraline 100 MG Tablet PO SCH (08:21)
[2018-03-13] MEDS: Loratadine 10 MG Tablet PO SCH (08:22)
[2018-03-13] MEDS: Metoprolol Tartrate 25 MG Tablet PO SCH ×2 (08:22→21:04)
[2018-03-13] MEDS: Furosemide 40 MG Tablet PO SCH (08:22)
[2018-03-13] MEDS: amLODIPine 5 MG Tablet PO SCH (08:56)
--- NOTE | 2018-03-13 09:49 | P.PNNP ---
Subjective Interval history: Reports some wheezing, nausea, and loose stools. Anxious about pending discharge and being able to care for self. <Jazlyn De Anda - Last Filed: 03/13/18 09:44> Physical Exam Vital signs: Vital Signs 03/12/18 12:00 03/12/18 16:00 03/12/18 20:00 Temperature 98.6 F 98.8 F 98.9 F Pulse Rate 83 96 H 94 H Respiratory Rate 16 17 18 Blood Pressure 120/79 138/79 136/75 Pulse Oximetry 98 93 L 95 03/13/18 00:00 03/13/18 04:00 03/13/18 08:00 Temperature 98.5 F 98.2 F 98.3 F Pulse Rate 93 H 84 80 Respiratory Rate 18 18 17 Blood Pressure 143/82 H 130/72 146/81 H Pulse Oximetry 94 L 95 93 L Intake & Output 03/12/18 03/13/18 03/13/18 18:59 06:59 18:59 Intake Total 720 / 720 1670 / 1670 Output Total 4500 / 4500 1200 / 1200 Balance -3780 / -3780 470 / 470 Weight 85.4 kg Intake: Oral 720 / 720 1670 / 1670 Output: Urine 1200 / 1200 Hemodialysis Amount 4500 / 4500 Other: # Voids 3 Date of Last Bowel Movement 03/12/18 03/12/18 # Bowel Movements 0 1 Narrative: GENERAL: Alert and oriented. SKIN: Warm and dry. Left foot with chronic appearing wound CHEST: HD catheter left IJ. HEART: Heart regular. AVF in right wrist with positive thrill and bruit. LUNGS: Lungs are clear and equal bilaterally. ABDOMEN: Soft with positive bowel sounds. Non tender EXTREMITIES: Normal range of motion. PSYCH: Appropriate mood and affect. <Jazlyn De Anda - Last Filed: 03/13/18 09:44> Assessment and Plan - Assessment (1) End stage renal disease on dialysis Code(s): N18.6 - End stage renal disease; Z99.2 - Dependence on renal dialysis Status: Chronic Plan: Patient has End stage renal disease on HD MWF AVF is not ready yet, AVF need more time for maturation. PermCath 02/20 left IJ Continue Epogen with dialysis Continue lasix and phoslo added with meals Outpatient HD arranged/ [facility], MWF, 2:15 PM Hemodialysis yesterday tolerated well with removal of 4.5 Liters (2) DKA, type 1 Code(s): E10.10 - Type 1 diabetes mellitus with ketoacidosis without coma Status: Acute Qualifiers: Diabetes mellitus complication detail: without coma Qualified Code(s): E10.10 - Type 1 diabetes mellitus with ketoacidosis without coma Plan: Blood sugars labile Maintain blood sugars between 140 mg/dl to 180 mg/dl Insulin pump (3) Anemia Code(s): D64.9 - Anemia, unspecified Status: Chronic Plan: HGB stable Epogen with dialysis (4) Hypertension Code(s): I10 - Essential (primary) hypertension Status: Acute Plan: Well controlled, continue current treatment <Jazlyn De Anda - Last Filed: 03/13/18 09:44> - Assessment (1) Chronic kidney disease, stage 4, severely decreased GFR Code(s): N18.4 - Chronic kidney disease, stage 4 (severe) Status: Acute - Attending Attestation Pt seen with WEB METHODS DEVELOPER, agree with the WEB METHODS DEVELOPER assessment and plan <Isi Tyler - Last Filed: 05/17/18 17:18>
--- NOTE | 2018-03-13 11:26 | P.PNIM ---
Subjective Interval history: in no acute distress. but had multiple loose BM's over night. has mild abdominal pain. no nausea,vomiting or fever. blood sugar trend noted. Physical Exam Vital signs: Vital Signs 03/12/18 12:00 03/12/18 16:00 03/12/18 20:00 Temperature 98.6 F 98.8 F 98.9 F Pulse Rate 83 96 H 94 H Respiratory Rate 16 17 18 Blood Pressure 120/79 138/79 136/75 Pulse Oximetry 98 93 L 95 03/13/18 00:00 03/13/18 04:00 03/13/18 08:00 Temperature 98.5 F 98.2 F 98.3 F Pulse Rate 93 H 84 80 Respiratory Rate 18 18 17 Blood Pressure 143/82 H 130/72 146/81 H Pulse Oximetry 94 L 95 93 L Intake & Output 03/12/18 03/13/18 03/13/18 18:59 06:59 18:59 Intake Total 720 / 720 1670 / 1670 Output Total 4500 / 4500 1200 / 1200 Balance -3780 / -3780 470 / 470 Weight 85.4 kg Intake: Oral 720 / 720 1670 / 1670 Output: Urine 1200 / 1200 Hemodialysis Amount 4500 / 4500 Other: # Voids 3 Date of Last Bowel Movement 03/12/18 03/12/18 # Bowel Movements 0 1 - Constitutional no acute distress - Routine Respiratory Exam Present: CTA bilaterally - Routine Cardiovascular Exam Present: RRR - Routine Abdominal Exam Present: soft - Routine Extremities Exam Comments: no pedal edema. - Routine Neurological Exam Present: alert, oriented X3 Results - Labs CBC & Chem 7: 03/07/18 06:31 03/12/18 09:05 Laboratory Results - last 24 hr 03/12/18 03/12/18 03/12/18 11:34 13:01 16:47 POC Glucose 119 H 92 164 H 03/12/18 03/13/18 20:11 08:15 POC Glucose 261 H 457 H* - Procedures RIGHT SIDE HD CATHETER PLACEMENT HD Assessment and Plan - Assessment (1) Diabetes type 1, uncontrolled Code(s): E10.65 - Type 1 diabetes mellitus with hyperglycemia Status: Acute (2) Hypertension Code(s): I10 - Essential (primary) hypertension Status: Chronic (3) End stage renal disease on dialysis Code(s): N18.6 - End stage renal disease; Z99.2 - Dependence on renal dialysis Status: Chronic (4) Anemia Code(s): D64.9 - Anemia, unspecified Status: Chronic - Plan 37 year old male with history of IDDM, HTN, DVT on Eliquis, 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 1. DKA on admission resolved - Patient is a brittle diabetic with dietary noncompliance - On admission, patient had ABG with pH 6.95, AG 33, and glucose 831 with associated Kussmaul breathing and renal failure - S/P insulin drip and DKA protocol -now on insulin pump. ( his medical unit secretary; ; [phone]) -refusing long-acting insulin. 2. Type 1 DM - A1c 8.5 - Maintenance Custodian was following and his insulin pump was adjusted. Unfortunately , his pump came out - now Insulin pump has now been reinserted and functionally at this time. -At this time patient will adjust insulin pump based on blood sugar trends and carbohydrate intake. 3. HCAP - resolved - CXR 02/09 right infiltrate - S/p vancomycin and aztreonam - Repeat CXR 02/15 with no acute cardiopulmonary disease - Repeat CXR 02/26 showing some bibasilar airspace disease and in this clinical setting I believe it is atelectasis - Incentive spirometer - Supplemental O2 to maintain sats >92% - Monitor for signs of infection 4. ESRD - Nephrology following - Fistula in place however not yet mature. Permacath placed 02/20 - Outpatient chair time has been arranged MWF - Avoid nephrotoxins - Percocet PRN for pain at Permacath site 5. Hematochezia - GI consulted - S/P EGD/colonoscopy on 02/16. EGD was normal except irregular Z line biopsy was done. Colonoscopy showed multiple polyps, 1 of them was flat and large which could be a reason for bleeding. S/P polypectomy - Recommendations to repeat colonoscopy in 3 months, okay to discharge from GI standpoint - Monitor CBC while on Eliquis 6. Hypokalemia, mild - Managed with HD 7. History of DVT - Continue Eliquis 8. HTN, chronic essential -Blood pressures much better improved - Continue amlodipine. - Hydralazine increased to to 100 mg TID - Started metoprolol 25 mg BID (HR in the 90-100s) - Clonidine PRN 9. Anemia of chronic kidney disease - Iron studies suggest combination of anemia of chronic disease and iron deficiency - Hemodynamically stable - Continue to monitor - Epogen with dialysis 10. L Heel wound - Appears chronic, not acutely infected or significantly draining - Wound care nurse consulted * Cleanse left lateral heel wound with NS Q3D and PRN for saturation or dislodgement * Apply Cavilon skin barrier film to periwound and allow to dry * Place Optifoam AG over wound bed and secure with dry cover and date dressing. * Keep heel elevated off mattress surface at all times 11. R wrist pain - XR showing subacute fracture involving the distal third of the ulna - Ortho consulted no further intervention, no need for splint or cast - Analgesics PRN - Continue Lyrica 12- C- diff colitis; now reports worsening diarrhea- continue oral Vanco . DVT prophylaxis: on Eliquis Discharge Planning: dc home tomorrow- if diarrhea and blood sugar improves. (1) Diabetes type 1, uncontrolled Qualifiers: Diabetes mellitus complication detail: with diabetic retinopathy
[2018-03-13] MEDS: Calcium Acetate 667 MG Capsule PO SCH ×2 (14:01→18:08)
[2018-03-14] MEDS: oxyCODONE/Acetaminophen 10/325 Tablet PO PRN (00:33)
[2018-03-14] MEDS: Insulin NovoLOG Aspart Correctional Sugar Inj SQ SCH ×4 (09:03→21:23)
--- NOTE | 2018-03-14 09:51 | P.PNNP ---
Subjective Interval history: Seen during hemodialysis tolerating well. Blood sugar elevated last night. Not using insulin pump secondary to not having insulin. <Jazlyn De Anda - Last Filed: 03/14/18 09:39> Physical Exam Vital signs: Vital Signs 03/13/18 12:00 03/13/18 16:00 03/13/18 20:00 Temperature 98.0 F 97.8 F 97.4 F L Pulse Rate 74 78 80 Respiratory Rate 17 16 18 Blood Pressure 142/84 H 139/82 117/63 Pulse Oximetry 96 96 96 03/14/18 00:00 03/14/18 04:00 Temperature 98.2 F 97.9 F Pulse Rate 77 77 Respiratory Rate 18 18 Blood Pressure 126/75 113/65 Pulse Oximetry 94 L 94 L Intake & Output 03/13/18 03/14/18 03/14/18 18:59 06:59 18:59 Intake Total 1000 / 1000 780 / 780 Balance 1000 / 1000 780 / 780 Intake: Oral 1000 / 1000 780 / 780 Other: # Voids 3 2 Date of Last Bowel Movement 03/12/18 # Bowel Movements 0 Narrative: GENERAL: Alert and oriented. SKIN: Warm and dry. Left foot with chronic appearing wound CHEST: HD catheter left IJ. HEART: Heart regular. AVF in right wrist with positive thrill and bruit. LUNGS: Lungs are clear and equal bilaterally. ABDOMEN: Soft with positive bowel sounds. Non tender EXTREMITIES: Normal range of motion. PSYCH: Appropriate mood and affect. <Jazlyn De Anda - Last Filed: 03/14/18 09:39> Vital signs: Vital Signs 03/13/18 12:00 03/13/18 16:00 03/13/18 20:00 Temperature 98.0 F 97.8 F 97.4 F L Pulse Rate 74 78 80 Respiratory Rate 17 16 18 Blood Pressure 142/84 H 139/82 117/63 Pulse Oximetry 96 96 96 03/14/18 00:00 03/14/18 04:00 03/14/18 08:00 Temperature 98.2 F 97.9 F 97.9 F Pulse Rate 77 77 84 Respiratory Rate 18 18 18 Blood Pressure 126/75 113/65 166/93 H Pulse Oximetry 94 L 94 L 98 Intake & Output 03/13/18 03/14/18 03/14/18 18:59 06:59 18:59 Intake Total 1000 / 1000 780 / 780 Balance 1000 / 1000 780 / 780 Intake: Oral 1000 / 1000 780 / 780 Other: # Voids 3 2 Date of Last Bowel Movement 03/12/18 # Bowel Movements 0 <Isi Tyler - Last Filed: 03/14/18 11:56> Assessment and Plan - Assessment (1) End stage renal disease on dialysis Code(s): N18.6 - End stage renal disease; Z99.2 - Dependence on renal dialysis Status: Chronic Plan: Patient has End stage renal disease on HD MWF AVF is not ready yet, AVF need more time for maturation. PermCath 02/20 left IJ Continue Epogen with dialysis Continue lasix and phoslo Outpatient HD arranged/ [facility], MWF, 2:15 PM Seen during hemodialysis will remove fluid as tolerated. (2) DKA, type 1 Code(s): E10.10 - Type 1 diabetes mellitus with ketoacidosis without coma Status: Acute Qualifiers: Diabetes mellitus complication detail: without coma Qualified Code(s): E10.10 - Type 1 diabetes mellitus with ketoacidosis without coma Plan: Blood sugars elevated/ not using insulin pump secondary to not having insulin Maintain blood sugars between 140 mg/dl to 180 mg/dl (3) Anemia Code(s): D64.9 - Anemia, unspecified Status: Chronic Plan: HGB stable Epogen with dialysis (4) Hypertension Code(s): I10 - Essential (primary) hypertension Status: Acute Plan: Well controlled, continue current treatment <Jazlyn De Anda - Last Filed: 03/14/18 09:39> - Assessment (1) Chronic kidney disease, stage 4, severely decreased GFR Code(s): N18.4 - Chronic kidney disease, stage 4 (severe) Status: Acute - Attending Attestation Patient seen and examined; agree with the plan and recommendations of the shellfish weigher <Isi Tyler S - Last Filed: 03/14/18 11:56>
[2018-03-14] MEDS: Calcium Acetate 667 MG Capsule PO SCH ×3 (11:29→17:18)
--- NOTE | 2018-03-14 11:29 | P.PNIM ---
Subjective Interval history: in no acute distress. diarrhea has resolved. blood sugar trend noted. Physical Exam Vital signs: Vital Signs 03/13/18 12:00 03/13/18 16:00 03/13/18 20:00 Temperature 98.0 F 97.8 F 97.4 F L Pulse Rate 74 78 80 Respiratory Rate 17 16 18 Blood Pressure 142/84 H 139/82 117/63 Pulse Oximetry 96 96 96 03/14/18 00:00 03/14/18 04:00 03/14/18 08:00 Temperature 98.2 F 97.9 F 97.9 F Pulse Rate 77 77 84 Respiratory Rate 18 18 18 Blood Pressure 126/75 113/65 166/93 H Pulse Oximetry 94 L 94 L 98 Intake & Output 03/13/18 03/14/18 03/14/18 18:59 06:59 18:59 Intake Total 1000 / 1000 780 / 780 Balance 1000 / 1000 780 / 780 Intake: Oral 1000 / 1000 780 / 780 Other: # Voids 3 2 Date of Last Bowel Movement 03/12/18 # Bowel Movements 0 - Constitutional no acute distress - Routine Respiratory Exam Present: CTA bilaterally - Routine Cardiovascular Exam Present: RRR - Routine Abdominal Exam Present: soft - Routine Extremities Exam Comments: no pedal edema. - Routine Neurological Exam Present: alert, oriented X3 Results - Labs CBC & Chem 7: 03/07/18 06:31 03/13/18 21:28 Laboratory Results - last 24 hr 03/13/18 03/13/18 03/13/18 12:28 18:04 20:27 POC Glucose 371 H 523 H* 571 H* Random Glucose 03/13/18 03/14/18 03/14/18 21:28 00:25 08:59 POC Glucose 252 H 247 H Random Glucose 584 H* D - Procedures RIGHT SIDE HD CATHETER PLACEMENT HD Assessment and Plan - Assessment (1) Diabetes type 1, uncontrolled Code(s): E10.65 - Type 1 diabetes mellitus with hyperglycemia Status: Acute (2) Hypertension Code(s): I10 - Essential (primary) hypertension Status: Chronic (3) End stage renal disease on dialysis Code(s): N18.6 - End stage renal disease; Z99.2 - Dependence on renal dialysis Status: Chronic (4) Anemia Code(s): D64.9 - Anemia, unspecified Status: Chronic - Plan 37 year old male with history of IDDM, HTN, DVT on Eliquis, 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 1. DKA on admission resolved - Patient is a brittle diabetic with dietary noncompliance - On admission, patient had ABG with pH 6.95, AG 33, and glucose 831 with associated Kussmaul breathing and renal failure - S/P insulin drip and DKA protocol -now on insulin pump. ( previously d/w his trimmer sorter; ; ) -refusing long-acting insulin. 2. Type 1 DM - A1c 8.5 - [place] Press Operator was following and his insulin pump was adjusted. Unfortunately , his pump came out - now Insulin pump has now been reinserted and functionally at this time. -At this time patient will adjust insulin pump based on blood sugar trends and carbohydrate intake. 3. HCAP - resolved - CXR 02/09 right infiltrate - S/p vancomycin and aztreonam - Repeat CXR 02/15 with no acute cardiopulmonary disease - Repeat CXR 02/26 showing some bibasilar airspace disease and in this clinical setting I believe it is atelectasis - Incentive spirometer - Supplemental O2 to maintain sats >92% - Monitor for signs of infection 4. ESRD - Nephrology following - Fistula in place however not yet mature. Permacath placed 02/20 - Outpatient chair time has been arranged MWF - Avoid nephrotoxins - Percocet PRN for pain at Permacath site 5. Hematochezia - GI consulted - S/P EGD/colonoscopy on 02/16. EGD was normal except irregular Z line biopsy was done. Colonoscopy showed multiple polyps, 1 of them was flat and large which could be a reason for bleeding. S/P polypectomy - Recommendations to repeat colonoscopy in 3 months, okay to discharge from GI standpoint - Monitor CBC while on Eliquis 6. Hypokalemia, mild - Managed with HD 7. History of DVT - Continue Eliquis 8. HTN, chronic essential -Blood pressures much better improved - Continue amlodipine. - Hydralazine increased to to 100 mg TID - Started metoprolol 25 mg BID (HR in the 90-100s) - Clonidine PRN 9. Anemia of chronic kidney disease - Iron studies suggest combination of anemia of chronic disease and iron deficiency - Hemodynamically stable - Continue to monitor - Epogen with dialysis 10. L Heel wound - Appears chronic, not acutely infected or significantly draining - Wound care nurse consulted * Cleanse left lateral heel wound with NS Q3D and PRN for saturation or dislodgement * Apply Cavilon skin barrier film to periwound and allow to dry * Place Optifoam AG over wound bed and secure with dry cover and date dressing. * Keep heel elevated off mattress surface at all times 11. R wrist pain - XR showing subacute fracture involving the distal third of the ulna - Ortho consulted no further intervention, no need for splint or cast - Analgesics PRN - Continue Lyrica 12- C- diff colitis; now reports worsening diarrhea- continue oral Vanco . DVT prophylaxis: on Eliquis Discharge Planning: will monitor his blood sugar today and dc home tomorrow if stable. d/w ( his trimmer sorter). (1) Diabetes type 1, uncontrolled Qualifiers: Diabetes mellitus complication detail: with diabetic retinopathy
[2018-03-14] MEDS: Pantoprazole Inj 40 MG Vial IV.PUSH SCH (14:40)
[2018-03-14] MEDS: Loratadine 10 MG Tablet PO SCH (14:41)
[2018-03-14] MEDS: amLODIPine 5 MG Tablet PO SCH (14:41)
[2018-03-14] MEDS: Topiramate 25 MG Tablet PO SCH (14:41)
[2018-03-14] MEDS: Furosemide 40 MG Tablet PO SCH (14:41)
[2018-03-14] MEDS: Calcitriol 0.25 MCG Capsule PO SCH (14:41)
[2018-03-14] MEDS: Metoprolol Tartrate 25 MG Tablet PO SCH ×2 (14:41→21:23)
[2018-03-14] MEDS: Senna/Docusate Sodium 8.6/50 MG Tablet PO SCH ×2 (14:42→21:22)
[2018-03-14] MEDS: Sertraline 100 MG Tablet PO SCH (14:42)
[2018-03-15] MEDS: Pantoprazole Inj 40 MG Vial IV.PUSH SCH (08:56)
[2018-03-15] MEDS: Topiramate 25 MG Tablet PO SCH (08:57)
[2018-03-15] MEDS: Loratadine 10 MG Tablet PO SCH (08:57)
[2018-03-15] MEDS: Calcium Acetate 667 MG Capsule PO SCH ×3 (08:57→17:52)
[2018-03-15] MEDS: Metoprolol Tartrate 25 MG Tablet PO SCH (08:57)
[2018-03-15] MEDS: amLODIPine 5 MG Tablet PO SCH (08:57)
[2018-03-15] MEDS: Calcitriol 0.25 MCG Capsule PO SCH (08:57)
[2018-03-15] MEDS: Sertraline 100 MG Tablet PO SCH (08:57)
[2018-03-15] MEDS: Furosemide 40 MG Tablet PO SCH (08:58)
[2018-03-15] MEDS: oxyCODONE/Acetaminophen 10/325 Tablet PO PRN ×3 (08:58→17:52)
[2018-03-15] MEDS: Insulin Detemir Inj 1,000 UNIT/10 ML Vial SQ SCH ×2 (11:54→21:46)
[2018-03-15] MEDS: Senna/Docusate Sodium 8.6/50 MG Tablet PO SCH (11:56)
[2018-03-15] MEDS: Insulin NovoLOG Aspart Correctional Sugar Inj SQ SCH ×5 (11:56→21:46)
--- NOTE | 2018-03-15 12:24 | P.PNNP ---
Subjective Interval history: Blood sugars remain elevated. Denies any shortness of breath. <Jazlyn De Anda - Last Filed: 03/15/18 12:22> Physical Exam Vital signs: Vital Signs 03/14/18 16:00 03/14/18 17:47 03/14/18 20:00 Temperature 98.0 F 98.2 F Pulse Rate 80 94 H Respiratory Rate 18 16 Blood Pressure 160/80 H 118/57 L Pulse Oximetry 99 99 96 03/15/18 00:00 03/15/18 04:00 03/15/18 08:00 Temperature 98.2 F 97.5 F L 97.9 F Pulse Rate 92 H 16 L 86 Respiratory Rate 16 16 16 Blood Pressure 133/71 99/55 L 156/59 H Pulse Oximetry 94 L 93 L 95 Intake & Output 03/14/18 03/15/18 03/15/18 18:59 06:59 18:59 Intake Total 380 / 380 1080 / 1080 Output Total 4600 / 4600 1450 / 1450 Balance -4220 / -4220 -370 / -370 Weight 84 kg Intake: Oral 380 / 380 1080 / 1080 Output: Urine 100 / 100 1450 / 1450 Hemodialysis Amount 4500 / 4500 Other: Date of Last Bowel Movement 03/14/18 # Bowel Movements 1 1 Narrative: GENERAL: Alert and oriented. SKIN: Warm and dry. Left foot with chronic appearing wound CHEST: HD catheter left IJ. HEART: Heart regular. AVF in right wrist with positive thrill and bruit. LUNGS: Lungs are clear and equal bilaterally. ABDOMEN: Soft with positive bowel sounds. Non tender EXTREMITIES: Normal range of motion. PSYCH: Appropriate mood and affect. <Jazlyn De Anda - Last Filed: 03/15/18 12:22> Vital signs: Vital Signs 03/14/18 17:47 03/14/18 20:00 03/15/18 00:00 Temperature 98.2 F 98.2 F Pulse Rate 94 H 92 H Respiratory Rate 16 16 Blood Pressure 118/57 L 133/71 Pulse Oximetry 99 96 94 L 03/15/18 04:00 03/15/18 08:00 03/15/18 12:00 Temperature 97.5 F L 97.9 F 97.6 F Pulse Rate 16 L 86 85 Respiratory Rate 16 16 16 Blood Pressure 99/55 L 156/59 H 107/59 L Pulse Oximetry 93 L 95 96 Intake & Output 03/14/18 03/15/18 03/15/18 18:59 06:59 18:59 Intake Total 380 / 380 1080 / 1080 Output Total 4600 / 4600 1450 / 1450 Balance -4220 / -4220 -370 / -370 Weight 84 kg Intake: Oral 380 / 380 1080 / 1080 Output: Urine 100 / 100 1450 / 1450 Hemodialysis Amount 4500 / 4500 Other: Date of Last Bowel Movement 03/14/18 # Bowel Movements 1 1 <Isi Tyler - Last Filed: 03/15/18 16:13> Assessment and Plan - Assessment (1) End stage renal disease on dialysis Code(s): N18.6 - End stage renal disease; Z99.2 - Dependence on renal dialysis Status: Chronic Plan: Patient has End stage renal disease on HD MWF AVF is not ready yet, AVF need more time for maturation. PermCath 02/20 left IJ Continue Epogen with dialysis Continue lasix and phoslo Outpatient HD arranged/ [facility], MWF, 2:15 PM Will need to arrive on first day at 2:00 Hepatitis panel ordered for dialysis center (2) DKA, type 1 Code(s): E10.10 - Type 1 diabetes mellitus with ketoacidosis without coma Status: Acute Qualifiers: Diabetes mellitus complication detail: without coma Qualified Code(s): E10.10 - Type 1 diabetes mellitus with ketoacidosis without coma Plan: Blood sugars elevated/ not using insulin pump secondary to not having insulin Maintain blood sugars between 140 mg/dl to 180 mg/dl (3) Anemia Code(s): D64.9 - Anemia, unspecified Status: Chronic Plan: HGB stable Epogen with dialysis (4) Hypertension Code(s): I10 - Essential (primary) hypertension Status: Acute Plan: Well controlled, continue current treatment <Jazlyn De Anda - Last Filed: 03/15/18 12:22> - Assessment (1) Chronic kidney disease, stage 4, severely decreased GFR Code(s): N18.4 - Chronic kidney disease, stage 4 (severe) Status: Acute - Attending Attestation Patient seen and examined; records reviewed; agree with the plan and recommendations of the DRY PLASTERER <Isi Tyler S - Last Filed: 03/15/18 16:13>
[2018-03-15 13:43] LABS: Hepatitits B Surface Antigen Nonreactive (Nonreactive)
[2018-03-15 14:37] LABS: Hepatitis A IgM Antibody Nonreactive (Nonreactive)
--- NOTE | 2018-03-15 15:40 | P.PN ---
Subjective Interval history: Feeling poorly, feels he may be going into DKA. Blood sugars have been uncontrolled overnight, 569 this morning. Has had nausea vomiting, the last time was at 03 100. No abdominal pain, no chest pain, no shortness of breath. Acetone odor from breast noted. Hemodynamically stable. Has insulin pump but unable to obtain insulin to refill. Physical Exam Vital signs: Vital Signs 03/14/18 16:00 03/14/18 17:47 03/14/18 20:00 Temperature 98.0 F 98.2 F Pulse Rate 80 94 H Respiratory Rate 18 16 Blood Pressure 160/80 H 118/57 L Pulse Oximetry 99 99 96 03/15/18 00:00 03/15/18 04:00 03/15/18 08:00 Temperature 98.2 F 97.5 F L 97.9 F Pulse Rate 92 H 16 L 86 Respiratory Rate 16 16 16 Blood Pressure 133/71 99/55 L 156/59 H Pulse Oximetry 94 L 93 L 95 03/15/18 12:00 Temperature 97.6 F Pulse Rate 85 Respiratory Rate 16 Blood Pressure 107/59 L Pulse Oximetry 96 Intake & Output 03/14/18 03/15/18 03/15/18 18:59 06:59 18:59 Intake Total 380 / 380 1080 / 1080 Output Total 4600 / 4600 1450 / 1450 Balance -4220 / -4220 -370 / -370 Weight 84 kg Intake: Oral 380 / 380 1080 / 1080 Output: Urine 100 / 100 1450 / 1450 Hemodialysis Amount 4500 / 4500 Other: Date of Last Bowel Movement 03/14/18 # Bowel Movements 1 1 Narrative: GENERAL: Alert and oriented 3, chronically ill-appearing. SKIN: Warm and dry. Left foot with chronic appearing wound. Skin pale CHEST: HD catheter left IJ. HEENT: Head normocephalic atraumatic. Patient is blind right eye. HEART: Heart regular. AVF in right wrist with positive thrill and bruit. LUNGS: Lungs are clear and equal bilaterally. ABDOMEN: Soft with positive bowel sounds. Non tender EXTREMITIES: Normal range of motion. NEURO: Awake alert oriented 3. PSYCH: Appropriate mood and affect. Results - Labs CBC & Chem 7: 03/07/18 06:31 03/15/18 08:00 Laboratory Results - last 24 hr 03/14/18 03/14/18 03/15/18 17:18 19:53 07:47 POC Glucose 286 H 447 H 569 H* Random Glucose Beta-Hydroxybutyric Acd Hepatitis A IgM Ab Hep Bs Antigen Hep B Core IgM Ab Hep C IgG Ab 03/15/18 03/15/18 03/15/18 08:00 08:00 11:30 POC Glucose Random Glucose 581 H* Beta-Hydroxybutyric Acd 5.56 H Hepatitis A IgM Ab Nonreactive Hep Bs Antigen Nonreactive Hep B Core IgM Ab Nonreactive Hep C IgG Ab Nonreactive 03/15/18 03/15/18 11:53 13:18 POC Glucose 507 H* 402 H Random Glucose Beta-Hydroxybutyric Acd Hepatitis A IgM Ab Hep Bs Antigen Hep B Core IgM Ab Hep C IgG Ab - Procedures RIGHT SIDE HD CATHETER PLACEMENT HD Assessment and Plan - Assessment (1) Diabetes type 1, uncontrolled Code(s): E10.65 - Type 1 diabetes mellitus with hyperglycemia Status: Acute (2) Hypertension Code(s): I10 - Essential (primary) hypertension Status: Chronic (3) End stage renal disease on dialysis Code(s): N18.6 - End stage renal disease; Z99.2 - Dependence on renal dialysis Status: Chronic (4) Anemia Code(s): D64.9 - Anemia, unspecified Status: Chronic - Plan - Plan 37 year old male with history of IDDM, HTN, DVT on Eliquis, 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 1. DKA on admission resolved - Patient is a brittle diabetic with dietary noncompliance - On admission, patient had ABG with pH 6.95, AG 33, and glucose 831 with associated Kussmaul breathing and renal failure - S/P insulin drip and DKA protocol -now on insulin pump. ( Dr. Ng previously d/w his town administrator; ; [phone]) -Blood sugars uncontrolled liver 9, we will check beta hydroxybutyrate. We will cover with insulin bolus for now. Dr. solis we spoke to pharmacy, they cannot provide insulin cartridge and refill insulin pump. Discussed with patient at length, he is agreeable with long-acting insulin. Patient will be started on Levemir 10 units subcu twice daily. We will add 5 units fast acting before meals. 2. Type 1 DM - A1c 8.5 - Assistant Branch Manager was following and his insulin pump was adjusted. Unfortunately , his pump came out - now Insulin pump has now been reinserted however there is no insulin cartridge available for refill. Has no family who can bring. [facility] [place] can't ref[place] per hospital policy. 3. HCAP - resolved - CXR 02/09 right infiltrate - S/p vancomycin and aztreonam - Repeat CXR 02/15 with no acute cardiopulmonary disease - Repeat CXR 02/26 showing some bibasilar airspace disease and in this clinical setting I believe it is atelectasis - Incentive spirometer - Supplemental O2 to maintain sats >92% - Monitor for signs of infection 4. ESRD - Nephrology following - Fistula in place however not yet mature. Permacath placed 02/20 - Outpatient chair time has been arranged MWF - Avoid nephrotoxins - Percocet PRN for pain at Permacath site 5. Hematochezia - GI consulted - S/P EGD/colonoscopy on 02/16. EGD was normal except irregular Z line biopsy was done. Colonoscopy showed multiple polyps, 1 of them was flat and large which could be a reason for bleeding. S/P polypectomy - Recommendations to repeat colonoscopy in 3 months, okay to discharge from GI standpoint - Monitor CBC while on Eliquis 6. Hypokalemia, mild - Managed with HD 7. History of DVT - Continue Eliquis 8. HTN, chronic essential -Blood pressures much better improved - Continue amlodipine. - Hydralazine increased to to 100 mg TID -Continue metoprolol 25 mg BID (HR in the 90-100s) - Clonidine PRN 9. Anemia of chronic kidney disease - Iron studies suggest combination of anemia of chronic disease and iron deficiency - Hemodynamically stable - Continue to monitor - Epogen with dialysis 10. L Heel wound - Appears chronic, not acutely infected or significantly draining - Wound care nurse consulted * Cleanse left lateral heel wound with NS Q3D and PRN for saturation or dislodgement * Apply Cavilon skin barrier film to periwound and allow to dry * Place Optifoam AG over wound bed and secure with dry cover and date dressing. * Keep heel elevated off mattress surface at all times 11. R wrist pain - XR showing subacute fracture involving the distal third of the ulna - Ortho consulted no further intervention, no need for splint or cast - Analgesics PRN - Continue Lyrica 12- C- diff colitis;diarrhea better now -continue oral Vanco . DC planning in progress. Already has HD chair arranged as OP. Poss dc 1-2 days if blood sugars come down to at least 200s-300s. Pt. states he is able to brick picker insulin cartridge on his way home. D/W RN, attending, pt. (1) Diabetes type 1, uncontrolled Qualifiers: Diabetes mellitus complication detail: with diabetic retinopathy
--- NOTE | 2018-03-15 16:13 | P.DIET ---
Nutritional Evaluation Type of nutrition evaluation: initial Nutrition consult regarding: Diet Evaluation ([facility] [place] for Diabetes Education) Assessment Assessment: Pt seen in his room. I asked pt if he has ever received diabetes diet education before and he said yes. Pt was able to tell me accurate diet information. He also states he has gone to multiple outpatient diabetes classes. I reviewed some information w/ pt and he actually ended up completing most of my review before I could say the answer b/c he knows the information so well. Discussed his A1C level and he said he's aware. Has been having issues w/ his insulin pump , but says this has been taken care of for D/C. Requested changes for his bedtime snack options. These changes have been made and will include 2 carb choices @ HS per MD diet order. Consult RD if needed.
[2018-03-16] MEDS: Metoprolol Tartrate 25 MG Tablet PO SCH ×2 (02:24→12:41)
[2018-03-16] MEDS: Senna/Docusate Sodium 8.6/50 MG Tablet PO SCH ×2 (02:25→12:42)
[2018-03-16 08:55] LABS: Albumin 2.5 g/dL (3.4-5.0); Calcium 7.8 mg/dL (8.5-10.1); Carbon Dioxide 19.8 meq/L (21.0-32.0); Phosphorus 7.1 mg/dL (2.5-4.9); Potassium 4.5 meq/L (3.5-5.1)
[2018-03-16 08:58] LABS: Baso % (Auto) 0.9 % (0.0-2.0); Eos # (Auto) 0.2 th/mm3 (0.0-0.4); Eos % (Auto) 3.7 % (0.0-4.0); Hematocrit 28.6 % (39.0-51.0); Hemoglobin 9.2 gm/dL (13.0-17.0); Lymph # (Auto) 1.9 th/mm3 (1.0-4.8); Lymph % (Auto) 32.8 % (9.0-44.0); Mean Corpuscular HGB Conc 32.2 % (32.0-36.0); Mean Corpuscular Hemoglobin 28.1 pg (27.0-34.0); Mean Corpuscular Volume 87.4 fL (80.0-100.0); Mean Platelet Volume 9.6 fL (7.0-11.0); Mono # (Auto) 0.4 th/mm3 (0.0-0.9); Mono % (Auto) 7.5 % (0.0-8.0); Neut # (Auto) 3.1 th/mm3 (1.8-7.7); Neut % (Auto) 55.1 % (16.0-70.0); Platelet Count 205 th/mm3 (150-450); Red Blood Count 3.27 mil/mm3 (4.50-5.90); Red Cell Distribution Width 15.9 % (11.6-17.2); White Blood Count 5.7 th/mm3 (4.0-11.0)
[2018-03-16 09:30] VITALS: TEMP 97.9
--- NOTE | 2018-03-16 11:05 | P.PNNP ---
Subjective Interval history: Seen during hemodialysis tolerating well. Denies any shortness of breath. Blood sugars have been labile. <Jazlyn De Anda - Last Filed: 03/16/18 10:59> Physical Exam Vital signs: Vital Signs 03/15/18 12:00 03/15/18 16:00 03/15/18 20:00 Temperature 97.6 F 97.7 F 98.2 F Pulse Rate 85 86 79 Respiratory Rate 16 18 16 Blood Pressure 107/59 L 102/56 L 114/67 Pulse Oximetry 96 96 95 03/15/18 20:53 03/15/18 23:48 03/16/18 04:00 Temperature 97.7 F 98 F Pulse Rate 77 79 Respiratory Rate 16 16 Blood Pressure 125/79 130/74 Pulse Oximetry 95 98 94 L 03/16/18 08:00 Temperature 97.9 F Pulse Rate 80 Respiratory Rate 16 Blood Pressure 143/79 H Pulse Oximetry 92 L Intake & Output 03/15/18 03/16/18 03/16/18 18:59 06:59 18:59 Intake Total 1096 / 1096 480 / 480 Output Total 450 / 450 600 / 600 Balance 646 / 646 -120 / -120 Weight 86.7 kg Intake: Oral 1096 / 1096 480 / 480 Output: Urine 450 / 450 600 / 600 Urine/Stool Mix 0 / 0 Other: Date of Last Bowel Movement 03/14/18 # Bowel Movements 1 Narrative: GENERAL: Alert and oriented 3 SKIN: Warm and dry. Left foot with chronic appearing wound. Skin pale CHEST: HD catheter left IJ. HEENT: Head normocephalic atraumatic. Patient is blind right eye. HEART: Heart regular. AVF in right wrist with positive thrill and bruit. LUNGS: Lungs are clear and equal bilaterally. ABDOMEN: Soft with positive bowel sounds. Non tender EXTREMITIES: Normal range of motion. NEURO: Awake alert oriented 3. PSYCH: Appropriate mood and affect. <Jazlyn De Anda - Last Filed: 03/16/18 10:59> Vital signs: Vital Signs 03/15/18 16:00 03/15/18 20:00 03/15/18 20:53 Temperature 97.7 F 98.2 F Pulse Rate 86 79 Respiratory Rate 18 16 Blood Pressure 102/56 L 114/67 Pulse Oximetry 96 95 95 03/15/18 23:48 03/16/18 04:00 03/16/18 08:00 Temperature 97.7 F 98 F 97.9 F Pulse Rate 77 79 80 Respiratory Rate 16 16 16 Blood Pressure 125/79 130/74 143/79 H Pulse Oximetry 98 94 L 92 L 03/16/18 12:00 Temperature 97.9 F Pulse Rate 88 Respiratory Rate 18 Blood Pressure 161/88 H Pulse Oximetry 95 Intake & Output 03/15/18 03/16/18 03/16/18 18:59 06:59 18:59 Intake Total 1096 / 1096 480 / 480 100 / 100 Output Total 450 / 450 600 / 600 5000 / 5000 Balance 646 / 646 -120 / -120 -4900 / -4900 Weight 86.7 kg Intake: IV 100 / 100 Flexbumin 25% Inj 100 ML @ 60 100 / 100 mls/hr IV.SIG WITH DIALYSIS PRN Rx#:[id number] Oral 1096 / 1096 480 / 480 Output: Urine 450 / 450 600 / 600 Urine/Stool Mix 0 / 0 Hemodialysis Amount 5000 / 5000 Other: Date of Last Bowel Movement 03/14/18 # Bowel Movements 1 <Isi Tyler S - Last Filed: 03/19/18 14:04> Assessment and Plan - Assessment (1) End stage renal disease on dialysis Code(s): N18.6 - End stage renal disease; Z99.2 - Dependence on renal dialysis Status: Chronic Plan: Patient has End stage renal disease on HD MWF AVF is not ready yet, AVF need more time for maturation. PermCath 02/20 left IJ Continue Epogen with dialysis Continue Calcitrol corrected calcium at 9.1 Hyperphosphatemia, phoslo increased. Outpatient HD arranged/ [facility], MWF, 2:15 PM Will need to arrive on first day at 2:00 (2) DKA, type 1 Code(s): E10.10 - Type 1 diabetes mellitus with ketoacidosis without coma Status: Acute Qualifiers: Diabetes mellitus complication detail: without coma Qualified Code(s): E10.10 - Type 1 diabetes mellitus with ketoacidosis without coma Plan: Blood sugars labile/ not using insulin pump secondary to not having insulin Maintain blood sugars between 140 mg/dl to 180 mg/dl (3) Anemia Code(s): D64.9 - Anemia, unspecified Status: Chronic Plan: HGB stable 9.1 Epogen with dialysis (4) Hypertension Code(s): I10 - Essential (primary) hypertension Status: Acute Plan: Well controlled, continue current treatment <Jazlyn De Anda - Last Filed: 03/16/18 10:59> - Assessment (1) Chronic kidney disease, stage 4, severely decreased GFR Code(s): N18.4 - Chronic kidney disease, stage 4 (severe) Status: Acute - Attending Attestation Patient seen and examined; records reviewed; agree with the plan and recommendations of the VETERINARIAN EPIDEMIOLOGIST <Isi Tyler - Last Filed: 03/19/18 14:04>
[2018-03-16] MEDS: Heparin 10,000 UNITS/10 ML Vial (for IV use) IV.FLUSH PRN (11:46)
[2018-03-16] MEDS: Insulin NovoLOG Aspart Correctional Sugar Inj SQ SCH ×4 (12:37→12:42)
[2018-03-16] MEDS: Pantoprazole Inj 40 MG Vial IV.PUSH SCH (12:39)
[2018-03-16] MEDS: amLODIPine 5 MG Tablet PO SCH (12:40)
[2018-03-16] MEDS: Furosemide 40 MG Tablet PO SCH (12:40)
[2018-03-16] MEDS: oxyCODONE/Acetaminophen 10/325 Tablet PO PRN (12:40)
[2018-03-16] MEDS: Topiramate 25 MG Tablet PO SCH (12:41)
[2018-03-16] MEDS: Loratadine 10 MG Tablet PO SCH (12:41)
[2018-03-16] MEDS: Insulin Detemir Inj 1,000 UNIT/10 ML Vial SQ SCH (12:41)
[2018-03-16] MEDS: Sertraline 100 MG Tablet PO SCH (12:41)
[2018-03-16] MEDS: Calcitriol 0.25 MCG Capsule PO SCH (12:41)
[2018-03-16] MEDS ORDERED: Calcium Acetate 667 MG Capsule PO SCH (13:00)
--- NOTE | 2018-03-16 13:10 | P.PN ---
Subjective Interval history: back from HD, feels tired, wants to eat lunch. Blood sugars markedly improved, 170s to 280s. No fever, no acute changes overnight Physical Exam Vital signs: Vital Signs 03/15/18 16:00 03/15/18 20:00 03/15/18 20:53 Temperature 97.7 F 98.2 F Pulse Rate 86 79 Respiratory Rate 18 16 Blood Pressure 102/56 L 114/67 Pulse Oximetry 96 95 95 03/15/18 23:48 03/16/18 04:00 03/16/18 08:00 Temperature 97.7 F 98 F 97.9 F Pulse Rate 77 79 80 Respiratory Rate 16 16 16 Blood Pressure 125/79 130/74 143/79 H Pulse Oximetry 98 94 L 92 L Intake & Output 03/15/18 03/16/18 03/16/18 18:59 06:59 18:59 Intake Total 1096 / 1096 480 / 480 100 / 100 Output Total 450 / 450 600 / 600 5000 / 5000 Balance 646 / 646 -120 / -120 -4900 / -4900 Weight 86.7 kg Intake: IV 100 / 100 Flexbumin 25% Inj 100 ML @ 60 100 / 100 mls/hr IV.SIG WITH DIALYSIS PRN Rx#:[id number] Oral 1096 / 1096 480 / 480 Output: Urine 450 / 450 600 / 600 Urine/Stool Mix 0 / 0 Hemodialysis Amount 5000 / 5000 Other: Date of Last Bowel Movement 03/14/18 # Bowel Movements 1 Narrative: GENERAL: Alert and oriented 3, chronically ill-appearing. SKIN: Warm and dry. Left foot with chronic appearing wound. Skin pale CHEST: HD catheter left IJ. HEENT: Head normocephalic atraumatic. Patient is blind right eye. HEART: Heart regular. AVF in right wrist with positive thrill and bruit. LUNGS: Lungs are clear and equal bilaterally. ABDOMEN: Soft with positive bowel sounds. Non tender EXTREMITIES: Normal range of motion. NEURO: Awake alert oriented 3. PSYCH: Appropriate mood and affect. Results - Labs CBC & Chem 7: 03/16/18 06:57 03/16/18 06:57 Laboratory Results - last 24 hr 03/15/18 03/15/18 03/15/18 11:30 13:18 16:59 WBC RBC Hgb Hct MCV MCH MCHC RDW Plt Count MPV Neut % (Auto) Lymph % (Auto) [place] % (Auto) Eos % (Auto) Baso % (Auto) Neut # (Auto) Lymph # (Auto) [place] # (Auto) Eos # (Auto) Baso # (Auto) WBC Differential Differential Comment Sodium Potassium Chloride Carbon Dioxide Anion Gap BUN Creatinine Estimated GFR POC Glucose 402 H 352 H Random Glucose Calcium Phosphorus Albumin Hepatitis A IgM Ab Nonreactive Hep Bs Antigen Nonreactive Hep B Core IgM Ab Nonreactive Hep C IgG Ab Nonreactive 03/15/18 03/16/18 03/16/18 19:43 06:57 06:57 WBC 5.7 RBC 3.27 L Hgb 9.2 L Hct 28.6 L MCV 87.4 MCH 28.1 MCHC 32.2 RDW 15.9 Plt Count 205 MPV 9.6 Neut % (Auto) 55.1 Lymph % (Auto) 32.8 [place] % (Auto) 7.5 Eos % (Auto) 3.7 Baso % (Auto) 0.9 Neut # (Auto) 3.1 Lymph # (Auto) 1.9 [place] # (Auto) 0.4 Eos # (Auto) 0.2 Baso # (Auto) 0.0 WBC Differential . Differential Comment Auto diff final Sodium 135 L Potassium 4.5 Chloride 100 Carbon Dioxide 19.8 L Anion Gap 15 BUN 72 H Creatinine 6.51 H Estimated GFR 10 L POC Glucose 171 H Random Glucose 247 H D Calcium 7.8 L Phosphorus 7.1 H Albumin 2.5 L Hepatitis A IgM Ab Hep Bs Antigen Hep B Core IgM Ab Hep C IgG Ab 03/16/18 03/16/18 03/16/18 07:41 10:04 11:40 WBC RBC Hgb Hct MCV MCH MCHC RDW Plt Count MPV Neut % (Auto) Lymph % (Auto) [place] % (Auto) Eos % (Auto) Baso % (Auto) Neut # (Auto) Lymph # (Auto) [place] # (Auto) Eos # (Auto) Baso # (Auto) WBC Differential Differential Comment Sodium Potassium Chloride Carbon Dioxide Anion Gap BUN Creatinine Estimated GFR POC Glucose 268 H 286 H 289 H Random Glucose Calcium Phosphorus Albumin Hepatitis A IgM Ab Hep Bs Antigen Hep B Core IgM Ab Hep C IgG Ab - Procedures RIGHT SIDE HD CATHETER PLACEMENT HD Assessment and Plan - Assessment (1) Diabetes type 1, uncontrolled Code(s): E10.65 - Type 1 diabetes mellitus with hyperglycemia Status: Acute (2) Hypertension Code(s): I10 - Essential (primary) hypertension Status: Chronic (3) End stage renal disease on dialysis Code(s): N18.6 - End stage renal disease; Z99.2 - Dependence on renal dialysis Status: Chronic (4) Anemia Code(s): D64.9 - Anemia, unspecified Status: Chronic - Plan - Plan 37 year old male with history of IDDM, HTN, DVT on Eliquis, 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 1. DKA on admission resolved - Patient is a brittle diabetic with dietary noncompliance - On admission, patient had ABG with pH 6.95, AG 33, and glucose 831 with associated Kussmaul breathing and renal failure - S/P insulin drip and DKA protocol -now on insulin pump. ( Dr. Ng previously d/w his licensed practical nurse clinic nurse; ; [phone]) -Blood sugars uncontrolled yesterday up to 500, beta hydroxybutyrate 5. Started on long acting and premeal bolus. Improved today, down to 170s to 280s. 2. Type 1 DM - A1c 8.5 - Traveling Sales Executive was following and his insulin pump was adjusted. Unfortunately , his pump came out - now Insulin pump has now been reinserted however there is no insulin cartridge available for refill. Has no family who can bring. [facility] pharmacy can't refill per hospital policy. 3. HCAP - resolved - CXR 02/09 right infiltrate - S/p vancomycin and aztreonam - Repeat CXR 02/15 with no acute cardiopulmonary disease - Repeat CXR 02/26 showing some bibasilar airspace disease and in this clinical setting I believe it is atelectasis - Incentive spirometer - Supplemental O2 to maintain sats >92% - Monitor for signs of infection 4. ESRD - Nephrology following - Fistula in place however not yet mature. Permacath placed 02/20 - Outpatient chair time has been arranged MWF - Avoid nephrotoxins - Percocet PRN for pain at Permacath site 5. Hematochezia - GI consulted - S/P EGD/colonoscopy on 02/16. EGD was normal except irregular Z line biopsy was done. Colonoscopy showed multiple polyps, 1 of them was flat and large which could be a reason for bleeding. S/P polypectomy - Recommendations to repeat colonoscopy in 3 months, okay to discharge from GI standpoint - Monitor CBC while on Eliquis 6. Hypokalemia, mild - Managed with HD 7. History of DVT - Continue Eliquis 8. HTN, chronic essential -Blood pressures much better improved - Continue amlodipine. - Hydralazine increased to to 100 mg TID -Continue metoprolol 25 mg BID (HR in the 90-100s) - Clonidine PRN 9. Anemia of chronic kidney disease - Iron studies suggest combination of anemia of chronic disease and iron deficiency - Hemodynamically stable - Continue to monitor - Epogen with dialysis 10. L Heel wound - Appears chronic, not acutely infected or significantly draining - Wound care nurse consulted * Cleanse left lateral heel wound with NS Q3D and PRN for saturation or dislodgement * Apply Cavilon skin barrier film to periwound and allow to dry * Place Optifoam AG over wound bed and secure with dry cover and date dressing. * Keep heel elevated off mattress surface at all times 11. R wrist pain - XR showing subacute fracture involving the distal third of the ulna - Ortho consulted no further intervention, no need for splint or cast - Analgesics PRN - Continue Lyrica 12- C- diff colitis;diarrhea better now -ok to stop oral Vanco, received 10 days of treatment Pt. stable for dc, blood sugars improved CM to arrange [facility] Has HD chair at [facility] at 2:15pm, instructed to be there at 2pm Continue diabetic diet Pt. states he has insulin at home and will fill his own pump Activity-as tolerated has not transportation, CM to arrange.
--- NOTE | 2018-03-16 13:11 | P.DCO ---
- Home Health Nursing Order: Medical education, Signs/symptoms of disease process, Diabetic education , Nursing assessment with vital signs - Case Management Consult Yes - Certification I have seen patient Gian Watkins II on 03/16/18. My clinical findings support the need for the requested home health care services because: type I DM , blind, ESRD new dx on HD now. Limited mobility due to disease progression, Medication compliance is questionable, Limited ability to care for self, Need for psychosocial assistance , Injectable medication education/administration I certify that my clinical findings support that this patient is homebound because: Unsafe to leave home unassisted, Need for psychosocial assistance
[2018-03-16 15:08] VITALS: BP 161/88; PULSE 88; RESP 18; O2SAT 95
--- NOTE | 2018-03-16 18:15 | P.DS ---
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 He is nonoliguric and makes adequate urine. On discharge his BUN was 50 creatinine 3.7. Patient stated he developed diarrhea a day after discharge with dehydration secondary to nausea vomiting and inability to keep anything down. He got more short of breath and was brought to the ER today where he was noted to be in severe metabolic acidosis with a pH of 6.95 and anion gap of 33 and extremely high glucose. He also was noted to have worsening renal function based on his BUN/creatinine. He was diagnosed to be in DKA as well as worsening renal failure. He was given 2 L normal saline bolus and started on DKA protocol. In the emergency room, he was initially seen by shop estimator. Nephrology was consulted for urgent dialysis. DS: Diagnosis - Discharge Diagnosis (1) Diabetes type 1, uncontrolled Status: Acute (2) Hypertension Status: Chronic (3) End stage renal disease on dialysis Status: Chronic (4) Anemia Status: Chronic DS: Medications - Discharge Medications Prescriptions: amlodipine [Norvasc] 10 mg PO DAILY 30 Days #60 tab calcitriol [Rocaltrol] 0.25 mcg PO DAILY 30 Days #30 cap calcium acetate 1,334 mg PO TID 30 Days #180 cap furosemide 40 mg PO DAILY 30 Days #30 tab hydralazine 100 mg PO TID 30 Days #90 tab metoprolol tartrate 25 mg PO BID 30 Days #60 tab pregabalin [Lyrica] 100 mg PO BID 30 Days #60 cap tramadol 50 mg PO Q6H PRN 2 Days #12 tab PRN Reason: Pain (Scale Score 4-6) DS: Summary Hospital Course: 37-year-old male with a medical history significant for insulin-dependent diabetes mellitus, hypertension, DVT on Eliquis last dose taken on 02/03, 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 He is nonoliguric and makes adequate urine. On discharge his BUN was 50 creatinine 3.7. Patient indicated he developed diarrhea a day after discharge with dehydration secondary to nausea vomiting and inability to keep anything down. He got more short of breath and was brought to the ER today where he was noted to be in severe metabolic acidosis with a pH of 6.95 and anion gap of 33 and extremely high glucose. He also was noted to have worsening renal function based on his BUN/creatinine. He was diagnosed to be in DKA as well as worsening renal failure. He was given 2 L normal saline bolus and started on DKA protocol. CCM initially consulted and admitted to ICU. Nephrology called from ED and pt. had emergent dialysis. Had vas cath placed. Patient was a brittle diabetic, also with history of dietary noncompliance. Initially he was treated with insulin drip and DKA protocol. Was eventually transferred out of ICU. Patient had an insulin pump, however he did not have insulin refills and [facility] pharmacy could not filled per hospital policy. Attending did speak with his carbon grinder Dr. Langely. While patient was in the regular floor, his blood sugars were sometimes up to 500, he was refusing long-acting. After much discussion with patient, he finally agreed with long- acting and pre-meal bolus. His blood sugar did improve. His hemoglobin A1c was checked and it was 8.5. Patient was also treated for healthcare acquired pneumonia, had a chest x-ray that showed a right infiltrate. He had vancomycin and aztreonam. Follow-up chest x-ray were reviewed and they showed improvement. He had no fever, WBC was stable Patient progressed to end-stage renal disease, nephrology arrange outside dialysis. He had a permacath placed on 02/20. Patient had a AV fistula on the right arm that had not yet mature. Patient tolerated dialysis well. Patient was also found with hematochezia, GI consulted. S/P EGD/colonoscopy on . EGD was normal except irregular Z line biopsy was done. Colonoscopy showed multiple polyps, 1 of them was flat and large which could be a reason for bleeding. S/P polypectomy Recommendations to repeat colonoscopy in 3 months, okay to discharge from GI standpoint He was continue on Eliquis for history of DVT His blood pressure was managed, he was continued on amlodipine. Hydralazine was increased to 100 mg 3 times daily. He was found anemic, secondary to chronic kidney disease. Epogen was given with dialysis. Patient also had a L Heel wound, appear chronic, not acutely infected. Wound care nurse was consulted and recommendations were followed. Had R wrist pain, XR showing subacute fracture involving the distal third of the ulna.Ortho consulted no further intervention, no need for splint or cast. Analgesics PRN. Continue Lyrica Found with C- diff colitis;diarrhea improved. Treated with PO Vanco CM consulted for DC planning, [facility] arranged Pt. improved, cleared for dc by nephrology. Pt. discharged home in stable condition, instructed to f/u with PCP, nephrology Has HD chair at [facility] M/W/F at 2:15pm, instructed to be there at 2pm - Time Spent with Patient Total time spent providing and/or coordinating discharge services: Greater than 30 minutes - Quality: VTE Deep Vein Thrombosis/Pulmonary Embolism Present on Admission: Yes Exam Vital signs: Vital Signs 03/15/18 20:00 03/15/18 20:53 03/15/18 23:48 Temperature 98.2 F 97.7 F Pulse Rate 79 77 Respiratory Rate 16 16 Blood Pressure 114/67 125/79 Pulse Oximetry 95 95 98 03/16/18 04:00 03/16/18 08:00 03/16/18 12:00 Temperature 98 F 97.9 F 97.9 F Pulse Rate 79 80 88 Respiratory Rate 16 16 18 Blood Pressure 130/74 143/79 H 161/88 H Pulse Oximetry 94 L 92 L 95 Intake & Output 03/15/18 03/16/18 03/16/18 18:59 06:59 18:59 Intake Total 1096 / 1096 480 / 480 100 / 100 Output Total 450 / 450 600 / 600 5000 / 5000 Balance 646 / 646 -120 / -120 -4900 / -4900 Weight 86.7 kg Intake: IV 100 / 100 Flexbumin 25% Inj 100 ML @ 60 100 / 100 mls/hr IV.SIG WITH DIALYSIS PRN Rx#:[id number] Oral 1096 / 1096 480 / 480 Output: Urine 450 / 450 600 / 600 Urine/Stool Mix 0 / 0 Hemodialysis Amount 5000 / 5000 Other: Date of Last Bowel Movement 03/14/18 # Bowel Movements 1 Narrative: 37-year-old male with a medical history significant for insulin-dependent diabetes mellitus, hypertension, DVT on Eliquis last dose taken on 02/03, 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 He is nonoliguric and makes adequate urine. On discharge his BUN was 50 creatinine 3.7. Patient tells me that he developed diarrhea a day after discharge with dehydration secondary to nausea vomiting and inability to keep anything down. He got more short of breath and was brought to the ER today where he was noted to be in severe metabolic acidosis with a pH of 6.95 and anion gap of 33 and extremely high glucose. He also was noted to have worsening renal function based on his BUN/creatinine. He was diagnosed to be in DKA as well as worsening renal failure. He was given 2 L normal saline bolus and started on DKA protocol. I was contacted by ER physician and accepted patient for admission to the ICU. I advised immediate nephrology consult and evaluated patient in ER. Patient did receive 8 units of regular insulin IV. I ordered additional 10 units regular insulin IV and a second amp of bicarb IV push. Patient was initiated on DKA protocol with insulin drip and IV fluids. I ordered additional 2 L normal saline bolus Dr. Gifford evaluated patient and recommended initiating urgent dialysis after Vas-Cath placement. Patient was extremely tachypneic second to Kussmaul respirations due to metabolic acidosis. IR placed vascath and patient was admitted to [facility]. 37 year old male with history of IDDM, HTN, DVT on Eliquis, 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 1. DKA on admission resolved - Patient is a brittle diabetic with dietary noncompliance - On admission, patient had ABG with pH 6.95, AG 33, and glucose 831 with associated Kussmaul breathing and renal failure - S/P insulin drip and DKA protocol -now on insulin pump. ( Dr. Ng previously d/w his carbon grinder; ; [phone]) -Blood sugars uncontrolled yesterday up to 500, beta hydroxybutyrate 5. Started on long acting and premeal bolus. Improved today, down to 170s to 280s. 2. Type 1 DM - A1c 8.5 - Customs Import Specialist was following and his insulin pump was adjusted. Unfortunately , his pump came out - now Insulin pump has now been reinserted however there is no insulin cartridge available for refill. Has no family who can bring. [facility] pharmacy can't refill per hospital policy. 3. HCAP - resolved - CXR 02/09 right infiltrate - S/p vancomycin and aztreonam - Repeat CXR 02/15 with no acute cardiopulmonary disease - Repeat CXR 02/26 showing some bibasilar airspace disease and in this clinical setting I believe it is atelectasis - Incentive spirometer - Supplemental O2 to maintain sats >92% - Monitor for signs of infection 4. ESRD - Nephrology following - Fistula in place however not yet mature. Permacath placed 02/20 - Outpatient chair time has been arranged MWF - Avoid nephrotoxins - Percocet PRN for pain at Permacath site 5. Hematochezia - GI consulted - S/P EGD/colonoscopy on 02/16. EGD was normal except irregular Z line biopsy was done. Colonoscopy showed multiple polyps, 1 of them was flat and large which could be a reason for bleeding. S/P polypectomy - Recommendations to repeat colonoscopy in 3 months, okay to discharge from GI standpoint - Monitor CBC while on Eliquis 6. Hypokalemia, mild - Managed with HD 7. History of DVT - Continue Eliquis 8. HTN, chronic essential -Blood pressures much better improved - Continue amlodipine. - Hydralazine increased to to 100 mg TID -Continue metoprolol 25 mg BID (HR in the 90-100s) - Clonidine PRN 9. Anemia of chronic kidney disease - Iron studies suggest combination of anemia of chronic disease and iron deficiency - Hemodynamically stable - Continue to monitor - Epogen with dialysis 10. L Heel wound - Appears chronic, not acutely infected or significantly draining - Wound care nurse consulted * Cleanse left lateral heel wound with NS Q3D and PRN for saturation or dislodgement * Apply Cavilon skin barrier film to periwound and allow to dry * Place Optifoam AG over wound bed and secure with dry cover and date dressing. * Keep heel elevated off mattress surface at all times 11. R wrist pain - XR showing subacute fracture involving the distal third of the ulna - Ortho consulted no further intervention, no need for splint or cast - Analgesics PRN - Continue Lyrica 12- C- diff colitis;diarrhea better now -ok to stop oral Vanco, received 10 days of treatment Pt. stable for dc, blood sugars improved CM to arrange [facility] Has HD chair at [facility] M/W/F at 2:15pm, instructed to be there at 2pm Continue diabetic diet Pt. states he has insulin at home and will fill his own pump Activity-as tolerated has not transportation, CM to arrange. Results Procedures completed during hospitalization: RIGHT SIDE HD CATHETER PLACEMENT HD S/P EGD/colonoscopy on 02/16. EGD was normal except irregular Z line biopsy was done. Colonoscopy showed multiple polyps, 1 of them was flat and large which could be a reason for bleeding. S/P polypectomy Labs on day of discharge: Labs from last 24 hours 03/16/18 03/16/18 03/16/18 11:40 10:04 07:41 WBC RBC Hgb Hct MCV MCH MCHC RDW Plt Count MPV Neut % (Auto) Lymph % (Auto) Ada % (Auto) Eos % (Auto) Baso % (Auto) Neut # (Auto) Lymph # (Auto) Ada # (Auto) Eos # (Auto) Baso # (Auto) WBC Differential Differential Comment Sodium Potassium Chloride Carbon Dioxide Anion Gap BUN Creatinine Estimated GFR POC Glucose 289 H 286 H 268 H Random Glucose Calcium Phosphorus Albumin 03/16/18 03/16/18 03/15/18 06:57 06:57 19:43 WBC 5.7 RBC 3.27 L Hgb 9.2 L Hct 28.6 L MCV 87.4 MCH 28.1 MCHC 32.2 RDW 15.9 Plt Count 205 MPV 9.6 Neut % (Auto) 55.1 Lymph % (Auto) 32.8 Ada % (Auto) 7.5 Eos % (Auto) 3.7 Baso % (Auto) 0.9 Neut # (Auto) 3.1 Lymph # (Auto) 1.9 Ada # (Auto) 0.4 Eos # (Auto) 0.2 Baso # (Auto) 0.0 WBC Differential . Differential Comment Auto diff final Sodium 135 L Potassium 4.5 Chloride 100 Carbon Dioxide 19.8 L Anion Gap 15 BUN 72 H Creatinine 6.51 H Estimated GFR 10 L POC Glucose 171 H Random Glucose 247 H D Calcium 7.8 L Phosphorus 7.1 H Albumin 2.5 L - Impressions ITS Impressions Catheter Placement 02/05/18 11:25 CONCLUSION: 1. Uncomplicated line placement as above. Abdomen/Pelvis CT 02/15/18 00:00 CONCLUSION: Central Venous Line 02/20/18 00:00 CONCLUSION: 1. Uncomplicated PermaCath placement as above. Tube Removal 02/20/18 00:00 CONCLUSION: 1. Uncomplicated catheter removal. Forearm X-Ray 02/25/18 00:00 CONCLUSION: Remote fracture of distal ulnar shaft with minimal residual angulation and partial nonunion. Wrist X-Ray 02/25/18 00:00 CONCLUSION: Subacute nondisplaced fracture involving the distal one third of the ulna and focal soft tissue prominence overlying the radial aspect of the wrist without evidence of adjacent osseous abnormality. Chest X-Ray 02/26/18 00:00 CONCLUSION: Minimal bibasilar densities could be atelectasis or infiltrates. Discharge Plan - Discharge Disposition Patient Disposition: W/Home Health Service - Discharge Condition Condition: Stable - Discharge Order Discharge Orders: Discharge Order (Routine); Ordered 03/16/18 Ordered By: Rohini Garcia - Discharge Details Anticipated Discharge Date: 03/16/18 - Physicians Team Primary Care Provider: Brittany Lovelace Attending Provider: Anthony Hoskins Other Providers: Bay Gifford MD ; [employer] ; Cameron Pimentel MD ; Doug Sow MD ; [facility] ; Perez Hare MD ; Aneesh Ram MD
== END 2018-03-16 16:51 | disposition home health service (06) ==
LOC: NEPE 08:39 → NEDA 10:37 → HIMC 14:05 → N06 02-06 18:28 → N04 03-06 16:33
PROVIDERS: ADMIT Internal Medicine; ATTEND Internal Medicine
PROC: COLONOS (2018-02-16 10:20)
PROC: PANENDO (2018-02-16 10:20)

== ENCOUNTER 2018-03-19 15:37 | Inpatient (IN) ==
--- NOTE | 2018-03-19 16:07 | ED ---
HPI General Chief complaint: Weakness Stated complaint: Weakness Time Seen by Provider: 03/19/18 15:43 History of Present Illness HPI Narrative: Patient presents to the emergency department with hypotension. He was in a dialysis [place] and his blood pressure was 70/30 with a temperature 100.3. He did not get dialysis in a call to have the patient transported to the emergency department. Reports vomiting today he did complete dialysis on Monday. He does make some urine. Accu-Chek was 522. He states that his insulin pump is not working. He apparently was getting a colonoscopy and endoscopy and the evaporative cooler installer changed his basal rate of his insulin pump so that he would not get hypoglycemic overnight. Has been at that lower rate for the past 3 weeks and he did not get it changed back because the evaporative cooler installer is not working anymore. He just left the hospital on Monday and he was here for 5 weeks secondary to pneumonia and looking for placement. He developed C. difficile while he was here and he is on p.o. vancomycin with 2 days of medication left. He states that he took the pill today but did not eat with it, which she thinks caused the vomiting. Ports having 2-3 episodes of diarrhea a day, vomiting stomach acid, but denies chest pain or abdominal pain or shortness of breath. Related Data Home Medications Medication Instructions Recorded Confirmed apixaban [Eliquis] 5 mg PO BID 01/26/18 03/19/18 aspirin 81 mg PO DAILY 01/26/18 03/19/18 sertraline 100 mg PO DAILY 01/26/18 03/19/18 topiramate 25 mg PO BID 01/26/18 03/19/18 ergocalciferol (vitamin D2) 50,000 unit PO QWEEK 03/19/18 03/19/18 [Vitamin D2] insulin pump-infus. set-meter 03/19/18 03/19/18 [Accu-Chek Combo System] loratadine [Claritin] 10 mg PO DAILY 03/19/18 03/19/18 multivitamin 1 tab PO DAILY 03/19/18 03/19/18 pregabalin [Lyrica] 150 mg PO BID 03/19/18 03/19/18 Previous Rx's Medication Instructions Recorded amlodipine [Norvasc] 10 mg PO DAILY 30 Days #60 tab 08/20/18 calcitriol [Rocaltrol] 0.25 mcg PO DAILY 30 Days #30 cap 03/12/18 furosemide 40 mg PO DAILY 30 Days #30 tab 03/12/18 hydralazine 100 mg PO TID 30 Days #90 tab 03/12/18 metoprolol tartrate 25 mg PO BID 30 Days #60 tab 03/12/18 calcium acetate 1,334 mg PO TID 30 Days #180 cap 03/16/18 Allergies Allergy/AdvReac Type Severity Reaction Status Date / Time amoxicillin Allergy Severe Rash Verified 02/05/18 08:56 broccoli Allergy Severe ANAPHYLAXIS Verified 02/05/18 08:56 mushroom Allergy Severe ANAPHYLAXIS Verified 02/05/18 08:56 penicillin G Allergy Severe Hives Verified 02/05/18 08:56 *MDRO Multi-Drug Resistant AdvReac Unknown Arrhythmias Uncoded 02/05/18 08:56 Organism Review of Systems ROS: all other systems reviewed are negative [facility] Family History Family History Other Family history unknown Social History Social History Substance History: No History of Abuse Second Hand Smoke Exposure: No Smoking Status: Former smoker Tobacco Type: E-Cigarettes How Often Do You Have a Drink Containing Alcohol: Monthly or less Hx Recent Travel: No Recent Travel in [facility] within the Last 8 Weeks: No Recent Out of Country Travel within the Last 8 Weeks: No Immunization History Tetanus Immunization: <5 Years Exam Narrative Exam Narrative: GENERAL: No acute distress. SKIN: Focused skin assessment warm/dry. HEAD: Atraumatic. Normocephalic. EYES: Pupils equal and round. No scleral icterus. No injection or drainage. ENT: No nasal bleeding or discharge. Mucous membranes pink and moist. NECK: Trachea midline. No JVD. CARDIOVASCULAR: Regular rate and rhythm. No murmur appreciated. Dialysis catheter left chest wall. RESPIRATORY: No accessory muscle use. Clear to auscultation. Breath sounds equal bilaterally. GASTROINTESTINAL: Abdomen soft, non-tender, nondistended. Hepatic and splenic margins not palpable. MUSCULOSKELETAL: No obvious deformities. No clubbing. No cyanosis. Bilateral lower extremity edema. NEUROLOGICAL: Awake and alert. No obvious cranial nerve deficits. Motor grossly within normal limits. Normal speech. PSYCHIATRIC: Appropriate mood and affect; insight and judgment normal. Course Initial Documented Vital Signs Temperature 98.3 F 03/19/18 15:56 Pulse Rate 92 H 03/19/18 15:56 Respiratory Rate 18 03/19/18 15:56 Blood Pressure 97/50 L 03/19/18 15:56 Pulse Oximetry 100 03/19/18 15:56 Last Documented Vital Signs Temperature 98.3 F 03/19/18 15:56 Pulse Rate 85 03/19/18 17:23 Respiratory Rate 17 03/19/18 17:23 Blood Pressure 109/64 03/19/18 17:23 Pulse Oximetry 96 03/19/18 17:23 Critical Care Time Critical Care Time: Yes Total Critical Care Time: 30 Attestation: Aggregate critical care time was 30 minutes. Time to perform other separately billable procedures was not included in the critical care time. My time did not include minutes spent treating any other patients simultaneously or on activities that did not directly contribute to the patient's treatment. The services I provided to this patient were to treat and/or prevent clinically significant deterioration that could result in: worsening hypotension, DKA, increased morbidity, I provided critical care services requiring my management, as noted below: Chart data review, documentation time, medication orders and management, vital sign assessments/reviewing monitor data, ordering and reviewing lab tests, ordering and interpreting/reviewing x-rays and diagnostic studies, care of the patient and discussion of the patient with the admitting physicians. Medical Decision Making MDM Narrative Medical decision making narrative: Patient presents to the emergency department with hypotension and elevated blood sugar. Patient placed on a hospital monitor , continuous pulse ox, and vascular access consulted for IV placement. Labs, EKG, chest x-ray ordered. CXR: FINDINGS: A left internal jugular tunneled dialysis catheter has its tips in the superior vena cava and right atrium. No pneumothorax is noted. The heart is minimally prominent. The pulmonary vascular pattern is normal. The lungs are clear.CONCLUSION: 1. Minimal cardiomegaly.2. No focal infiltrate or pulmonary vascular congestion. Labs: Decrease hgb/HCT; acidotic on ABG; Patient given 2L IV NS. After 600cc his blood sugar 449 and patient gave himself 5 units of insulin through his insulin pump. I told patient that I needed him to turn that off b/c we don't have his potassium back and he initially refused stating that we, [place], always mess up his sugar and insulin. He eventually agreed to turn off the insulin pump. 1926: Patient admitted to ICU with DKA protocol initiated in ER. Spoke to motor bus driver covering for Dr Hartman, patient's motor bus driver whose out of the country until mid March. Advised to stabilize patient tonight and will dialyse tomorrow. Medical Screen Exam Complete: Yes Emergency Medical Condition: Yes Differential Diagnosis Differential Diagnosis: Sepsis, anemia, dehydration, DKA, infectious process Lab Data Result diagrams: 03/19/18 16:10 03/19/18 16:10 Lab Results 03/19/18 03/19/18 03/19/18 Range/Units 16:07 16:10 16:10 WBC 9.2 (4.0-11.0) th/mm3 RBC 3.38 L (4.50-5.90) mil/mm3 Hgb 9.3 L (13.0-17.0) gm/dL Hct 30.6 L (39.0-51.0) % MCV 90.4 (80.0-100.0) fL MCH 27.6 (27.0-34.0) pg MCHC 30.5 L (32.0-36.0) % RDW 17.0 (11.6-17.2) % Plt Count 235 (150-450) th/mm3 MPV 9.2 (7.0-11.0) fL Neut % (Auto) 81.7 H (16.0-70.0) % Lymph % (Auto) 10.0 (9.0-44.0) % [place] % (Auto) 7.8 (0.0-8.0) % Eos % (Auto) 0.1 (0.0-4.0) % Baso % (Auto) 0.4 (0.0-2.0) % Neut # (Auto) 7.5 (1.8-7.7) th/mm3 Lymph # (Auto) 0.9 L (1.0-4.8) th/mm3 [place] # (Auto) 0.7 (0.0-0.9) th/mm3 Eos # (Auto) 0.0 (0.0-0.4) th/mm3 Baso # (Auto) 0.0 (0.0-0.2) th/mm3 WBC Differential . Differential Comment Auto diff final PT (9.8-11.6) sec INR Ratio APTT (24.3-30.1) sec Puncture Site Left radial Patient Temperature 98.6 O2 Saturation 92 (90-100) % ABG pH 7.17 L* (7.380-7.420) ABG pCO2 33 L (38-42) mmHg ABG pO2 83 (61-120) mmHg ABG HCO3 12 L* (22-26) mmol/L ABG O2 Content 11.8 L (12.0-20.0) Vol % ABG Base Excess -15.2 L (-2-2) mmol/L ABG Methemoglobin 0.9 (0-2) % Zain Test Present Hemoglobin 9.1 L (12.0-16.0) G/DL Carboxyhemoglobin 1.7 (0-4) % Inspired O2 21 % Critical Value Yes Sodium 135 L (136-145) meq/L Potassium 4.7 (3.5-5.1) meq/L Chloride 99 (98-107) meq/L Carbon Dioxide 14.5 L (21.0-32.0) meq/L Anion Gap 22 H (5-15) meq/L BUN 74 H (7-18) mg/dL Creatinine 7.41 H (0.60-1.30) mg/dL Estimated GFR 8 L (>89) mL/min Random Glucose 520 H* (74-106) mg/dL Lactic Acid (0.4-2.0) mmol/L Calcium 7.5 L (8.5-10.1) mg/dL Phosphorus (2.5-4.9) mg/dL Magnesium 2.6 H (1.5-2.5) mg/dL Total Bilirubin 0.4 (0.2-1.0) mg/dL AST 13 L (15-37) U/L ALT 22 (12-78) U/L Alkaline Phosphatase 108 (45-117) U/L Troponin I 0.03 (0.02-0.05) ng/mL Total Protein 6.0 L (6.4-8.2) g/dL Albumin 3.0 L (3.4-5.0) g/dL Beta-Hydroxybutyric Acd (0.00-0.39) mmol/L 03/19/18 03/19/18 03/19/18 Range/Units 16:10 16:10 16:10 WBC (4.0-11.0) th/mm3 RBC (4.50-5.90) mil/mm3 Hgb (13.0-17.0) gm/dL Hct (39.0-51.0) % MCV (80.0-100.0) fL MCH (27.0-34.0) pg MCHC (32.0-36.0) % RDW (11.6-17.2) % Plt Count (150-450) th/mm3 MPV (7.0-11.0) fL Neut % (Auto) (16.0-70.0) % Lymph % (Auto) (9.0-44.0) % [place] % (Auto) (0.0-8.0) % Eos % (Auto) (0.0-4.0) % Baso % (Auto) (0.0-2.0) % Neut # (Auto) (1.8-7.7) th/mm3 Lymph # (Auto) (1.0-4.8) th/mm3 [place] # (Auto) (0.0-0.9) th/mm3 Eos # (Auto) (0.0-0.4) th/mm3 Baso # (Auto) (0.0-0.2) th/mm3 WBC Differential Differential Comment PT 10.3 (9.8-11.6) sec INR 1.0 Ratio APTT 25.9 (24.3-30.1) sec Puncture Site Patient Temperature O2 Saturation (90-100) % ABG pH (7.380-7.420) ABG pCO2 (38-42) mmHg ABG pO2 (61-120) mmHg ABG HCO3 (22-26) mmol/L ABG O2 Content (12.0-20.0) Vol % ABG Base Excess (-2-2) mmol/L ABG Methemoglobin (0-2) % Zain Test Hemoglobin (12.0-16.0) G/DL Carboxyhemoglobin (0-4) % Inspired O2 % Critical Value Sodium (136-145) meq/L Potassium (3.5-5.1) meq/L Chloride (98-107) meq/L Carbon Dioxide (21.0-32.0) meq/L Anion Gap (5-15) meq/L BUN (7-18) mg/dL Creatinine (0.60-1.30) mg/dL Estimated GFR (>89) mL/min Random Glucose (74-106) mg/dL Lactic Acid 1.3 (0.4-2.0) mmol/L Calcium (8.5-10.1) mg/dL Phosphorus (2.5-4.9) mg/dL Magnesium (1.5-2.5) mg/dL Total Bilirubin (0.2-1.0) mg/dL AST (15-37) U/L ALT (12-78) U/L Alkaline Phosphatase (45-117) U/L Troponin I (0.02-0.05) ng/mL Total Protein (6.4-8.2) g/dL Albumin (3.4-5.0) g/dL Beta-Hydroxybutyric Acd 4.22 H (0.00-0.39) mmol/L 03/19/18 Range/Units 16:10 WBC (4.0-11.0) th/mm3 RBC (4.50-5.90) mil/mm3 Hgb (13.0-17.0) gm/dL Hct (39.0-51.0) % MCV (80.0-100.0) fL MCH (27.0-34.0) pg MCHC (32.0-36.0) % RDW (11.6-17.2) % Plt Count (150-450) th/mm3 MPV (7.0-11.0) fL Neut % (Auto) (16.0-70.0) % Lymph % (Auto) (9.0-44.0) % [place] % (Auto) (0.0-8.0) % Eos % (Auto) (0.0-4.0) % Baso % (Auto) (0.0-2.0) % Neut # (Auto) (1.8-7.7) th/mm3 Lymph # (Auto) (1.0-4.8) th/mm3 [place] # (Auto) (0.0-0.9) th/mm3 Eos # (Auto) (0.0-0.4) th/mm3 Baso # (Auto) (0.0-0.2) th/mm3 WBC Differential Differential Comment PT (9.8-11.6) sec INR Ratio APTT (24.3-30.1) sec Puncture Site Patient Temperature O2 Saturation (90-100) % ABG pH (7.380-7.420) ABG pCO2 (38-42) mmHg ABG pO2 (61-120) mmHg ABG HCO3 (22-26) mmol/L ABG O2 Content (12.0-20.0) Vol % ABG Base Excess (-2-2) mmol/L ABG Methemoglobin (0-2) % Zain Test Hemoglobin (12.0-16.0) G/DL Carboxyhemoglobin (0-4) % Inspired O2 % Critical Value Sodium (136-145) meq/L Potassium (3.5-5.1) meq/L Chloride (98-107) meq/L Carbon Dioxide (21.0-32.0) meq/L Anion Gap (5-15) meq/L BUN (7-18) mg/dL Creatinine (0.60-1.30) mg/dL Estimated GFR (>89) mL/min Random Glucose (74-106) mg/dL Lactic Acid (0.4-2.0) mmol/L Calcium (8.5-10.1) mg/dL Phosphorus 6.1 H (2.5-4.9) mg/dL Magnesium (1.5-2.5) mg/dL Total Bilirubin (0.2-1.0) mg/dL AST (15-37) U/L ALT (12-78) U/L Alkaline Phosphatase (45-117) U/L Troponin I (0.02-0.05) ng/mL Total Protein (6.4-8.2) g/dL Albumin (3.4-5.0) g/dL Beta-Hydroxybutyric Acd (0.00-0.39) mmol/L Imaging Data Radiologist's impression: Chest X-Ray 03/19/18 15:57 CONCLUSION: 1. Minimal cardiomegaly. 2. No focal infiltrate or pulmonary vascular congestion. ECG Data Attestation: I personally reviewed and interpreted this ECG as follows: (Sinus rhythm, rate 89, normal axis, QTC 433, slight ST depression in lead V3 through V6) Discharge Plan Discharge Disposition Patient Disposition: 30 Still Patient Discharge Condition Condition: Critical Discharge Details Diagnosis: DKA, type 1 Physicians Team ED Provider: Nikki Jolley Primary Care Provider: Brittany Lovelace Attending Provider: James Ayon Other Providers: Virgil Pyle ; [facility],Insurance Discharge Interventions Interventions: Vital Signs Last Done: 03/19/18 17:23 Status ED Status: Admitted Patient
[2018-03-19 16:21] LABS: ABG Base Excess -15.2 mmol/L (-2-2); ABG PCO2 33 mmHg (38-42); ABG PO2 83 mmHg (61-120)
--- NOTE | 2018-03-19 16:22 | XR ---
EXAM DATE: 03/19/2018 4:16 PM EDT AGE/SEX: 37 years / Male INDICATIONS: Fever CLINICAL DATA: This is the patient's initial encounter. Patient reports that signs and symptoms have been present for 1 day and indicates a pain score of 0/10. MEDICAL/SURGICAL HISTORY: Hypertension. Diabetes mellitus type II . . . Dialysis catheter [place] [employer] COMPARISON: [facility], CHEST 2V PA&LAT, 02/26/2018. . FINDINGS: A left internal jugular tunneled dialysis catheter has its tips in the superior vena cava and right a trium. No pneumothorax is noted. The heart is minimally prominent. The pulmonary vascular pattern is normal. The lungs are clear. CONCLUSION: 1. Minimal cardiomegaly. 2. No focal infiltrate or pulmonary vascular congestion. Electronically signed by: David Lam MD 03/19/2018 4:21 PM EDT
[2018-03-19] MEDS ORDERED: Sod Chloride 0.9% Inj 1,000 ML IV.SIG ONE ×2 (17:14→18:25)
[2018-03-19 17:51] LABS: Baso % (Auto) 0.4 % (0.0-2.0); Eos % (Auto) 0.1 % (0.0-4.0); Hematocrit 30.6 % (39.0-51.0); Hemoglobin 9.3 gm/dL (13.0-17.0); Lymph # (Auto) 0.9 th/mm3 (1.0-4.8); Mean Corpuscular Hemoglobin 27.6 pg (27.0-34.0); Mean Corpuscular Volume 90.4 fL (80.0-100.0); Mean Platelet Volume 9.2 fL (7.0-11.0); Mono # (Auto) 0.7 th/mm3 (0.0-0.9); Mono % (Auto) 7.8 % (0.0-8.0); Neut # (Auto) 7.5 th/mm3 (1.8-7.7); Neut % (Auto) 81.7 % (16.0-70.0); Platelet Count 235 th/mm3 (150-450); Red Blood Count 3.38 mil/mm3 (4.50-5.90); White Blood Count 9.2 th/mm3 (4.0-11.0)
[2018-03-19 17:54] LABS: Mean Corpuscular HGB Conc 30.5 % (32.0-36.0)
[2018-03-19 18:02] LABS: Activated Partial Thrombo Time 25.9 sec (24.3-30.1); Prothrombin Time 10.3 sec (9.8-11.6)
[2018-03-19 18:12] LABS: Alanine Aminotransferase 22 U/L (12-78); Anion Gap 22 meq/L (5-15); Aspartate Aminotransferase 13 U/L (15-37); Blood Urea Nitrogen 74 mg/dL (7-18); Calcium 7.5 mg/dL (8.5-10.1); Carbon Dioxide 14.5 meq/L (21.0-32.0); Chloride 99 meq/L (98-107); Glomerular Filtration Rate 8 mL/min (>89); Magnesium 2.6 mg/dL (1.5-2.5); Potassium 4.7 meq/L (3.5-5.1); Sodium 135 meq/L (136-145)
[2018-03-19 18:29] LABS: Alkaline Phosphatase 108 U/L (45-117); Troponin I 0.03 ng/mL (0.02-0.05)
[2018-03-19 18:31] LABS: Glucose,Random 520 mg/dL (74-106)
[2018-03-19] MEDS ORDERED: Acetaminophen 325 MG Tablet PO PRN ×2 (19:14→19:59)
[2018-03-19] MEDS ORDERED: Bisacodyl 10 MG Supp RECTAL PRN (19:14)
[2018-03-19] MEDS ORDERED: Insulin Regular (For Infusion) 100 UNIT in Sodium Chlor 0.9% Inj 99 ML IV.CONT PRN ×2 (19:14→19:21)
[2018-03-19] MEDS ORDERED: Potassium Chlor 20 mEq Premix 20 MEQ/100 ML PIGGYBACK IV.SIG PRN ×4 (19:21)
[2018-03-19] MEDS ORDERED: Dextrose 5%/NaCl 0.9% Inj 1,000 ML IV.CONT SCH (19:30)
--- NOTE | 2018-03-19 19:34 | P.HPCC ---
History of Present Illness Service: Critical care medicine Primary Care Physician: Brittany Lovelace Chief Complaint: Hypotension/weakness History of Present Illness: This is a 37-year-old male. Date of admission 03/19/2018. Past medical history includes end-stage renal disease/chronic kidney disease for currently receiving hemodialysis 3 times a left Vas-Cath through the left tunneled IJ catheter, IDDM with diabetic nephrosclerosis and neuropathy on insulin pump, hypertension, history of DVT on apixaban, depression and recent diagnosis of C. difficile.. He originally presented to the emergency department with hypotension. He was in a dialysis [place] [facility] when and his blood pressure was 70/30 with a temperature 100.3. He did not receive hemodialysis today. Accu-Chek was 522. He states that his insulin pump is not working. Complaining of nausea/vomiting. Denies chest pain abdominal pain or shortness of breath currently. Patient was noted to have an elevated acetone will follow her 0.22. Blood sugar in the 500s. Patient received 1 L normal saline bolus with resolution of hypertension. Insulin pump is been removed and is currently on insulin drip at 7 units an hour. Looks medically stable. Inpatient Certification: I certify that the inpatient services were ordered in accordance with Medicare regulations governing the order. This includes certification that hospital inpatient services are reasonable and necessary and in the case of services not specified as inpatient-only under 42 CFR 419.22(n), that they are appropriately provided as inpatient services in accordance to with the 2-midnight benchmark under 43 CFR 412.3(e) Estimated Total Length of Stay (Days): 7 Plans for Post Hospital Care: Not yet determined Review of Systems Constitutional: Reports weakness, Denies anorexia, Denies body ache(s), Denies chills, Denies weight gain, Denies weight loss Eyes: Denies blind spots, Denies blurry vision Ears, Nose, Mouth, and Throat: Denies abnormal hearing, Denies difficulty swallowing, Denies sinus pressure Cardiovascular: Denies chest pain, Denies foot swelling Gastrointestinal: Reports nausea, Denies abdominal pain, Denies vomiting blood Genitourinary: Denies painful urination, Denies side pain Musculoskeletal: Denies abnormal walking, Denies back pain, Denies body aches Skin/Breast: Denies acne, Denies bleeding lesions, Denies unusual bruising Neurologic: Reports numbness, Denies abnormal hearing Psychiatric: Reports anxiety, Reports depression, Denies abnormal sleep pattern , Denies confusion Endocrine: Denies cold intolerance, Denies excessive sweating Hematologic/Lymphatic: Denies easy bleeding Allergic/Immunologic: Reports seasonal runny nose, Denies GI upset with certain foods PMFSH - History History Provided By: Patient - Medical History Medical History: Medical History (Last Reviewed 03/19/18 @ 19:26 by James Ayon MD) AVF (arteriovenous fistula) Anxiety CKD (chronic kidney disease) stage 5, GFR less than 15 ml/min DVT (deep venous thrombosis) Depression Diabetes Diabetic retinopathy Diabetic ulcer of heel Hypertension Neuropathy - Surgical History Surgical History: Surgical History (Last Reviewed 03/19/18 @ 19:26 by James Ayon MD) Status post right foot surgery - Family History Family History: Family History (Last Updated 03/19/18 @ 19:26 by James Ayon MD) Other Family history unknown - Tobacco History Second Hand Smoke Exposure: No Tobacco Use In Past 30 Days: No Smoking Status: Former smoker Tobacco Type: E-Cigarettes - Alcohol History How Often Do You Have a Drink Containing Alcohol: Monthly or less - Substance Use History Substance History: No History of Abuse - Travel History History of Recent Travel: No Recent Travel in the [place] Within the Last 8 Weeks: No Recent Travel Out of the Country Within the Last 8 Weeks: No - Immunization History Tetanus Immunization: <5 Years Medications and Allergies Active Medications: Active Medications Acetaminophen (Tylenol) 650 mg PO Q6H PRN PRN Reason: PAIN 1-10 AND/OR FEVER >101F Hydrocodone Bitart/Acetaminophen (Poyntelle 5/325) 1 tab PO Q4H PRN PRN Reason: PAIN SCALE 1 TO 5 Albuterol (Albuterol Neb (Josette)) 2.5 mg NEB Q2HR NEB PRN PRN Reason: SHORTNESS OF BREATH/WHEEZING Apixaban (Eliquis) 5 mg PO BID [facility] Aspirin (Aspirin Chew) 81 mg PO DAILY [facility] Bisacodyl (Dulcolax Supp) 10 mg RECTAL DAILY PRN PRN Reason: SEVERE CONSITIPATION Calcitriol (Rocaltrol) 0.25 mcg PO DAILY [facility] Calcium Acetate (Phoslo) 1,334 mg PO TID [facility] Chlorhexidine Gluconate (Chlorhexidine 2% Cloth) 3 pack TOPICAL DAILY@0400 [facility] Stop: 03/25/18 03:59 Chlorhexidine Gluconate (Chlorhexidine 2% Cloth) 3 pack TOPICAL DAILY@0400 PRN PRN Reason: Extra cloth needed Stop: 03/25/18 03:59 Ergocalciferol (Vitamind2) 50,000 unit PO QWEEK [facility] Dextrose/Sodium Chloride (D5w/Normal Saline Inj) 1,000 mls @ 200 mls/hr IV.CONT .Q5H [facility] Sodium Chloride (Ns Inj) 1,000 mls @ 250 mls/hr IV.CONT .Q4H [facility] Insulin Human Regular 100 unit (/ Sodium Chloride) 100 mls @ 7 mls/hr IV.CONT TITRATE PRN; Protocol PRN Reason: See protocol Lactulose (Lactulose Liq) 30 ml PO DAILY PRN PRN Reason: SEVERE CONSITIPATION Loratadine (Claritin) 10 mg PO DAILY [facility] Morphine Sulfate (Morphine Inj) 2 mg IV.PUSH Q2H PRN PRN Reason: PAIN SCALE 6 TO 10 Non-Formulary Medication (Multivitamin [Multivitamin]) 1 tab PO DAILY [facility] Non-Formulary Medication (Pregabalin [Lyrica]) 150 mg PO BID [facility] Non-Formulary Medication (Topiramate [Topiramate]) 25 mg PO BID [facility] Ondansetron HCl (Zofran Inj) 4 mg IV.PUSH Q6H PRN PRN Reason: NAUSEA OR VOMITING Pantoprazole Sodium (Protonix) 40 mg PO DAILY [facility] Senna/Docusate Sodium (Margarita-Colace) 1 tab PO BID [facility] Sennosides (Senokot) 17.2 mg PO Q12H PRN PRN Reason: Moderate Constipation Sertraline HCl (Zoloft) 100 mg PO DAILY [facility] Sodium Bicarbonate (Sodium Bicarbonate 8.4% Inj) 50 meq IV.PUSH UNSCH PRN PRN Reason: for pH 6.9 to 7.0 Sodium Bicarbonate (Sodium Bicarbonate 8.4% Inj) 100 meq IV.PUSH UNSCH PRN PRN Reason: for pH less than 6.9 Sodium Chloride (Ns Flush) 2 ml IV.FLUSH PRN PRN PRN Reason: FLUSH AFTER USING IV ACCESS Sodium Chloride (Ns Flush) 2 ml IV.FLUSH BID [facility] Allergies Allergy/AdvReac Type Severity Reaction Status Date / Time amoxicillin Allergy Severe Rash Verified 02/05/18 08:56 broccoli Allergy Severe ANAPHYLAXIS Verified 02/05/18 08:56 mushroom Allergy Severe ANAPHYLAXIS Verified 02/05/18 08:56 penicillin G Allergy Severe Hives Verified 02/05/18 08:56 *MDRO Multi-Drug Resistant AdvReac Unknown Arrhythmias Uncoded 02/05/18 08:56 Organism Home Medications Medication Instructions Recorded Confirmed Type apixaban [Eliquis] 5 mg PO BID 01/26/18 03/19/18 History aspirin 81 mg PO DAILY 01/26/18 03/19/18 History sertraline 100 mg PO DAILY 01/26/18 03/19/18 History topiramate 25 mg PO BID 01/26/18 03/19/18 History ergocalciferol (vitamin D2) 50,000 unit PO QWEEK 03/19/18 03/19/18 History [Vitamin D2] insulin pump-infus. set-meter 03/19/18 03/19/18 History [Accu-Chek Combo System] loratadine [Claritin] 10 mg PO DAILY 03/19/18 03/19/18 History multivitamin 1 tab PO DAILY 03/19/18 03/19/18 History pregabalin [Lyrica] 150 mg PO BID 03/19/18 03/19/18 History Results - Labs CBC & Chem 7: 03/19/18 16:10 03/19/18 16:10 Labs: Short CBC 03/19/18 Range/Units 16:10 WBC 9.2 (4.0-11.0) th/mm3 Hgb 9.3 L (13.0-17.0) gm/dL Hct 30.6 L (39.0-51.0) % Plt Count 235 (150-450) th/mm3 BMP 03/19/18 16:10 Sodium 135 L Potassium 4.7 Chloride 99 Carbon Dioxide 14.5 L BUN 74 H Creatinine 7.41 H Calcium 7.5 L Cardiac Enzymes 03/19/18 Range/Units 16:10 Troponin I 0.03 (0.02-0.05) ng/mL Liver Function 03/19/18 Range/Units 16:10 Total Bilirubin 0.4 (0.2-1.0) mg/dL AST 13 L (15-37) U/L ALT 22 (12-78) U/L Alkaline Phosphatase 108 (45-117) U/L Albumin 3.0 L (3.4-5.0) g/dL - Imaging Impressions Chest X-Ray 03/19/18 15:57 CONCLUSION: 1. Minimal cardiomegaly. 2. No focal infiltrate or pulmonary vascular congestion. Exam Vital signs: Vital Signs 03/19/18 15:56 03/19/18 16:00 03/19/18 17:23 Temperature 98.3 F Pulse Rate 92 H 89 85 Respiratory Rate 18 17 17 Blood Pressure 97/50 L 97/50 L 109/64 Pulse Oximetry 100 96 96 Intake & Output 03/19/18 03/19/18 03/20/18 06:59 18:59 06:59 Weight 70 kg - Constitutional no acute distress - Routine HEENT Exam Head: Present: normocephalic, atraumatic Eye: Present: EOMI, PERRL, normal accommodation ENT: Present: mucous membranes dry - Routine Neck Exam Present: supple, full ROM. Absent: JVD, carotid bruit - Routine Chest/Breast/Axilla Exam Chest wall: Absent: tenderness Breast: Absent: tenderness Axillae: Absent: lymphadenopathy - Routine Respiratory Exam Present: CTA bilaterally. Absent: accessory muscle use, wheezes, crackles - Routine Cardiovascular Exam Present: S1, S2, tachycardia. Absent: murmur - Routine Abdominal Exam Present: soft, normoactive bowel sounds - Routine Extremities Exam Absent: cyanosis, clubbing, edema - Routine Skin Exam Present: intact - Routine Neurological Exam Present: alert, oriented X3, CN II-XII intact, sensory deficit. Absent: motor deficit Septic Shock Reassessment Septic shock perfusion: reassessment completed Caprini VTE Risk Assessment Caprini VTE Risk Assessment: No/Low Risk (score <= 1) Caprini Risk Assessment Model: Point Value = 1 Point Value = 2 Point Value = 3 Point Value = 5 Age 41-60 Minor surgery BMI > 25 kg/m2 Swollen legs Varicose veins or History of unexplained or recurrent spontaneous Oral contraceptives or hormone replacement Sepsis (< 1 month) Serious lung disease, including pneumonia (< 1 month) Abnormal pulmonary function Acute myocardial infarction Congestive heart failure (< 1 month) History of inflammatory bowel disease Medical patient at bed rest Age 61-74 Arthroscopic surgery Major open surgery (> 45 min) Laparoscopic surgery (> 45 min) Malignancy Confined to bed (> 72 hours) Immobilizing plaster cast Central venous access Age >= 75 History of VTE Family history of VTE Factor V Leiden Prothrombin [id number] Lupus anticoagulant Anticardiolipin antibodies Elevated serum homocysteine Heparin-induced thrombocytopenia Other congenital or acquired thrombophilia Stroke (< 1 month) Elective arthroplasty Hip, pelvis, or leg fracture Acute spinal cord injury (< 1 month) Prophylaxis Regimen: Total Risk Factor Score Risk Level Prophylaxis Regimen 0-1 Low Early ambulation 2 Moderate Order ONE of the following: *Sequential Compression Device (SCD) *Heparin 5000 units SQ BID 3-4 Higher Order ONE of the following medications: *Heparin 5000 units SQ TID *Enoxaparin/Lovenox 40 mg SQ daily (WT < 150 kg, CrCl > 30 mL/min) *Enoxaparin/Lovenox 30 mg SQ daily (WT < 150 kg, CrCl > 10-29 mL/min) *Enoxaparin/Lovenox 30 mg SQ BID (WT < 150 kg, CrCl > 30 mL/min) AND/OR *Sequential Compression Device (SCD) 5 or more Highest Order ONE of the following medications: *Heparin 5000 units SQ TID (Preferred with Epidurals) *Enoxaparin/Lovenox 40 mg SQ daily (WT < 150 kg, CrCl > 30 mL/min) *Enoxaparin/Lovenox 30 mg SQ daily (WT < 150 kg, CrCl > 10-29 mL/min) *Enoxaparin/Lovenox 30 mg SQ BID (WT < 150 kg, CrCl > 30 mL/min) AND *Sequential Compression Device (SCD) Assessment and Plan - Assessment and Plan Plan: Neuro/Psych: Depressive disorder NOS Acetaminophen 650 p.o. every 6 hours as needed fever Hydrocodone/acetaminophen 5/25 1 tablet every 4 hours as needed pain 1 through 5 Morphine sulfate 2 mg IV q. hours every 2 hours as needed pain 6 -10 Continue sertraline 100 mg p.o. daily. For depressive disorder Continue pregabalin 100 mg twice daily for peripheral neuropathy Continue topiramate 25 mg p.o. twice daily CV: History of essential hypertension Holding hydralazine 100 mg 3 times daily, metoprolol tartrate with Lovaza twice daily and amlodipine 5 mg daily in light of hypertension resume clinically indicated Holding furosemide 40 mg daily while hypotensive. Resume when indicated EKG revealed normal sinus rhythm. No ST changes. Serial troponins every 6 hours 2 ordered Resp: Nasal cannula to maintain saturations greater than equal to 92% Incentive spirometry every hour while awake Albuterol aerosols every 2 hours as needed dyspnea GI: Hypoalbuminemia History of C. difficile History of polypectomy 02/07. -Adematous polyp on pathologuy N.p.o. diet currently. Okay for meds and sips Resume oral vancomycin 50 mg p.o. every 6 hours 2 days to complete therapy Pantoprazole for GI prophylaxis Docusate serum/senna 1 tablet twice daily for bowel regimen : No indication for Felipe catheter Endo: DKA IDDM Holding insulin pump at home oral diabetic medications. Falls withDrPieter Korin Or for his insulin pump [phone]. DKA protocol with insulin drip at 7 units an hour. Received 3 L normal saline in ED. Currently normotensive. Serial BMP, magnesium phosphorus every 6 hours. Serial beta hydroxybutyrate every 12 hours until cleared Renal: End-stage renal disease on hemodialysis Monday/Monday/Monday through [facility] Secondary hypoparathyroidism Seen by Dr. Gifford last hospitalization. Will consult for a.m. hemodialysis. Received hemodialysis last Monday Resume calcitriol 0.25 mcg daily for secondary hypoparathyroidism Continue calcium acetate 1334 mg 3 times daily for hyperphosphatemia Heme: Anemia of chronic kidney disease History of DVT on chronic apixaban Resume apixaban 5 mg twice daily. No indication for transfusion of blood proximal. Recheck CBC in a.m. ID: Blood cultures 2 drawn 03/19. FEN: Hypermagnesia Replace electrolytes as clinically indicated MSK: Recent right distal ulnar fracture. Evaluate Dr. Green 03/10. No intervention. Continue with ergocalciferol 50,000 units weekly. PT evaluate and treat Access -Left tunneled IJ Vas-Cath continue. Utilize peripheral IV. Central line if indicated Prophylaxis- GI- Pantoprazole- DVT SCD/apixaban provides DVT prophylaxis Level 3 admission. Transfer care to hospitalist in a.m. 03/20.
[2018-03-19] MEDS ORDERED: Sod Chloride 0.9% Inj 1,000 ML OTHER PRN ×2 (19:59)
[2018-03-19] MEDS ORDERED: Heparin 10,000 UNITS/10 ML Vial (for IV use) OTHER PRN ×2 (19:59)
[2018-03-19] MEDS ORDERED: Gelatin 12 MM/7 MM Topical Foam TOPICAL PRN (19:59)
[2018-03-19] MEDS ORDERED: Sod Chloride 0.9% Inj 1,000 ML IV.CONT PRN (19:59)
[2018-03-19] MEDS ORDERED: Albumin Human 25% Inj 100 ML IV.SIG PRN (19:59)
[2018-03-19] MEDS: Sod Chloride 0.9% Inj 1,000 ML IV.CONT SCH ×2 (20:46→21:04)
[2018-03-19] MEDS: Senna/Docusate Sodium 8.6/50 MG Tablet PO SCH (20:47)
[2018-03-19] MEDS: Topiramate 25 MG Tablet PO SCH (21:05)
[2018-03-19] MEDS: Pregabalin 75 MG Capsule PO SCH (21:05)
[2018-03-19] MEDS: Morphine Inj 4 MG/ML Vial IV.PUSH PRN (21:06)
[2018-03-19 21:07] LABS: Amorphous Sediment,Urine Rare /hpf; Bacteria,Urine Rare /hpf; Bilirubin,Urine Negative (Negative); Clarity,Urine Cloudy (Clear); Color,Urine Yellow (Yellw/Straw); Glucose,Urine (UA) 500 or Greater mg/dL (Negative); Hyaline Casts,Urine 5 /lpf (0-3); Leukocyte Esterase,Urine Negative (Negative); Mucus,Urine Few /lpf (Occasional); Nitrite,Urine Negative (Negative); Specific Gravity,Urine 1.011 (1.002-1.035); Squamous Epithelial Cell,Urine <1 /hpf (0-5)
[2018-03-19] MEDS ORDERED: Labetalol HCl Inj 100 MG/20 ML Vial IV.PUSH PRN (21:14)
[2018-03-19] MEDS: Dextrose 5%/NaCl 0.9% Inj 1,000 ML IV.CONT SCH (22:58)
[2018-03-20 00:38] LABS: Calcium 7.5 mg/dL (8.5-10.1); Carbon Dioxide 16.5 meq/L (21.0-32.0); Magnesium 2.4 mg/dL (1.5-2.5); Phosphorus 5.9 mg/dL (2.5-4.9); Potassium 4.3 meq/L (3.5-5.1); Troponin I 0.53 ng/mL (0.02-0.05)
[2018-03-20 03:47] LABS: Baso % (Auto) 0.6 % (0.0-2.0); Eos % (Auto) 0.5 % (0.0-4.0); Hematocrit 27.9 % (39.0-51.0); Hemoglobin 9.1 gm/dL (13.0-17.0); Lymph # (Auto) 2.1 th/mm3 (1.0-4.8); Lymph % (Auto) 28.8 % (9.0-44.0); Mean Corpuscular HGB Conc 32.6 % (32.0-36.0); Mean Platelet Volume 8.2 fL (7.0-11.0); Mono # (Auto) 0.5 th/mm3 (0.0-0.9); Mono % (Auto) 7.4 % (0.0-8.0); Neut # (Auto) 4.6 th/mm3 (1.8-7.7); Neut % (Auto) 62.7 % (16.0-70.0); Platelet Count 217 th/mm3 (150-450); Red Blood Count 3.25 mil/mm3 (4.50-5.90); Red Cell Distribution Width 15.7 % (11.6-17.2); White Blood Count 7.3 th/mm3 (4.0-11.0)
[2018-03-20] MEDS ORDERED: Chlorhexidine Gluconate 2% 1 Pack (2 Cloths) TOPICAL SCH (04:00)
[2018-03-20] MEDS ORDERED: Chlorhexidine Gluconate 2% 1 Pack (2 Cloths) TOPICAL PRN ×2 (04:00)
[2018-03-20 04:02] LABS: INR 1.1 Ratio; Prothrombin Time 11.1 sec (9.8-11.6)
[2018-03-20] MEDS ORDERED: Dextrose 50% in Water Syringe 50 ML ONE (04:10)
[2018-03-20 04:12] LABS: Beta Hydroxybutyric Acid 0.07 mmol/L (0.00-0.39); Calcium 7.3 mg/dL (8.5-10.1); Carbon Dioxide 18.5 meq/L (21.0-32.0); Magnesium 2.2 mg/dL (1.5-2.5); Phosphorus 5.6 mg/dL (2.5-4.9); Potassium 3.5 meq/L (3.5-5.1)
[2018-03-20 04:25] LABS: Total Protein 5.6 g/dL (6.4-8.2)
[2018-03-20] MEDS: Morphine Inj 4 MG/ML Vial IV.PUSH PRN ×3 (04:39→21:00)
[2018-03-20] MEDS: Dextrose 5%/NaCl 0.9% Inj 1,000 ML IV.CONT SCH ×4 (04:41→14:57)
[2018-03-20] MEDS: Sod Chloride 0.9% Inj 1,000 ML IV.CONT SCH ×9 (04:42→14:57)
[2018-03-20] MEDS: Chlorhexidine Gluconate 2% 1 Pack (2 Cloths) TOPICAL SCH (06:53)
[2018-03-20] MEDS: Loratadine 10 MG Tablet PO SCH (08:03)
[2018-03-20] MEDS: Calcitriol 0.25 MCG Capsule PO SCH (08:04)
[2018-03-20] MEDS: Calcium Acetate 667 MG Capsule PO SCH ×3 (08:05→17:20)
[2018-03-20] MEDS: Pregabalin 75 MG Capsule PO SCH ×2 (08:05→20:58)
[2018-03-20] MEDS: Topiramate 25 MG Tablet PO SCH ×2 (08:05→20:59)
[2018-03-20] MEDS: Senna/Docusate Sodium 8.6/50 MG Tablet PO SCH ×2 (08:05→20:59)
[2018-03-20] MEDS: hydrALAZINE 25 MG Tablet PO SCH ×3 (08:05→17:20)
[2018-03-20] MEDS: amLODIPine 5 MG Tablet PO SCH (08:05)
[2018-03-20] MEDS: Sertraline 100 MG Tablet PO SCH (08:06)
[2018-03-20] MEDS ORDERED: Metoprolol Tartrate 25 MG Tablet PO ONE (10:30)
--- NOTE | 2018-03-20 11:19 | P.CONNP ---
<Jazlyn De Anda - Last Filed: 03/20/18 11:02> History of Present Illness Service: Nephrology Consult date: 03/19/18 Requesting Physician: James Ayon Reason for Consult: End stage renal disease on hemodialysis Primary Care Provider: Brittany Lovelace Family Provider: Brittany Lovelace Chief Complaint: Hypotension/weakness History of Present Illness: Patient is a 37-year-old male with a past medical history of hypertension, diabetes, h/o DVT on Eliquis, End stage renal disease, blindness in right eye, anemia, and diabetic retinopathy. Patient presents to the emergency department with hypotension, hyperglycemia, nausea, and vomiting. Pio Estevez called me in reference to patients condition and recommended having him go to emergency department for further evaluation. This was going to be his first hemodialysis outpatient. He reported that his blood sugars where well controlled after discharge except form Monday. Nephrology is consulted for management of end stage renal disease. Has left IJ permacath and right lower extremity AVF no mature yet. Review of Systems Constitutional: Reports weakness Cardiovascular: Denies chest pain, Denies shortness of breath, Denies shortness of breath with activity Respiratory: Denies cough, Denies wheezing Gastrointestinal: Denies abdominal pain, Denies nausea, Denies vomiting Genitourinary: Denies blood in urine, Denies urinary frequency, Denies urinary urgency Neurologic: Reports tingling/numbness/burning sensations PMFSH - History History Provided By: Patient - Medical History Medical History: Medical History (Last Reviewed 03/19/18 @ 19:26 by James Ayon MD) AVF (arteriovenous fistula) Anxiety CKD (chronic kidney disease) stage 5, GFR less than 15 ml/min DVT (deep venous thrombosis) Depression Diabetes Diabetic retinopathy Diabetic ulcer of heel Hypertension Neuropathy - Surgical History Surgical History: Surgical History (Last Reviewed 03/19/18 @ 19:26 by James Ayon MD) Status post right foot surgery - Family History Family History: Family History (Last Updated 03/19/18 @ 19:26 by James Ayon MD) Other Family history unknown - Tobacco History Second Hand Smoke Exposure: No Tobacco Use In Past 30 Days: No Smoking Status: Never smoker Tobacco Type: E-Cigarettes - Alcohol History How Often Do You Have a Drink Containing Alcohol: Monthly or less - Substance Use History Substance History: Past History - Travel History History of Recent Travel: No Recent Travel in the [facility] Within the Last 8 Weeks: No Recent Travel Out of the Country Within the Last 8 Weeks: No - Immunization History Tetanus Immunization: <5 Years Medications and Allergies Allergies Allergy/AdvReac Type Severity Reaction Status Date / Time amoxicillin Allergy Severe Rash Verified 02/05/18 08:56 broccoli Allergy Severe ANAPHYLAXIS Verified 02/05/18 08:56 mushroom Allergy Severe ANAPHYLAXIS Verified 02/05/18 08:56 penicillin G Allergy Severe Hives Verified 02/05/18 08:56 *MDRO Multi-Drug Resistant AdvReac Unknown Arrhythmias Uncoded 02/05/18 08:56 Organism Home Medications Medication Instructions Recorded Confirmed Type apixaban [Eliquis] 5 mg PO BID 01/26/18 03/19/18 History aspirin 81 mg PO DAILY 01/26/18 03/19/18 History sertraline 100 mg PO DAILY 01/26/18 03/19/18 History topiramate 25 mg PO BID 01/26/18 03/19/18 History ergocalciferol (vitamin D2) 50,000 unit PO QWEEK 03/19/18 03/19/18 History [Vitamin D2] insulin pump-infus. set-meter 03/19/18 03/19/18 History [Accu-Chek Combo System] loratadine [Claritin] 10 mg PO DAILY 03/19/18 03/19/18 History multivitamin 1 tab PO DAILY 03/19/18 03/19/18 History pregabalin [Lyrica] 150 mg PO BID 03/19/18 03/19/18 History Active Medications: Active Medications Acetaminophen (Tylenol) 650 mg PO Q6H PRN PRN Reason: PAIN 1-10 AND/OR FEVER >101F Acetaminophen (Tylenol) 650 mg PO UNSCH PRN PRN Reason: SEE LABEL COMMENTS Albuterol (Albuterol Neb (Prn)) 2.5 mg NEB Q2HR NEB PRN PRN Reason: SHORTNESS OF BREATH/WHEEZING Amlodipine Besylate (Norvasc) 5 mg PO DAILY [facility] Last Admin: 03/20/18 08:05 Dose: Not Given Apixaban (Eliquis) 5 mg PO BID [facility] Last Admin: 03/20/18 08:05 Dose: 5 mg Aspirin (Aspirin Chew) 162 mg PO DAILY [facility] Atorvastatin Calcium (Lipitor) 40 mg PO HS [facility] Bisacodyl (Dulcolax Supp) 10 mg RECTAL DAILY PRN PRN Reason: SEVERE CONSITIPATION Calcitriol (Rocaltrol) 0.25 mcg PO DAILY [facility] Last Admin: 03/20/18 08:04 Dose: 0.25 mcg Calcium Acetate (Phoslo) 1,334 mg PO TIDAC [facility] Last Admin: 03/20/18 11:01 Dose: Not Given Chlorhexidine Gluconate (Chlorhexidine 2% Cloth) 3 pack TOPICAL DAILY@0400 [facility] Stop: 03/25/18 03:59 Last Admin: 03/20/18 06:53 Dose: 3 pack Chlorhexidine Gluconate (Chlorhexidine 2% Cloth) 3 pack TOPICAL DAILY@0400 PRN PRN Reason: Extra cloth needed Stop: 03/25/18 03:59 Clonidine HCl (Catapres) 0.1 mg PO UNSCH PRN PRN Reason: SEE LABEL COMMENTS Diphenhydramine HCl (Benadryl) 25 mg PO UNSCH PRN PRN Reason: SEE LABEL COMMENTS Epoetin Pipo (Epogen Inj) 6,000 unit IV.PUSH UNSCH PRN PRN Reason: SEE LABEL COMMENTS Ergocalciferol (Vitamind2) 50,000 unit PO Q7D [facility] Last Admin: 03/19/18 21:05 Dose: Not Given Gelatin (Gelfoam 12 Mm/7 Mm Topical) 1 foam TOPICAL UNSCH PRN PRN Reason: help stop bleeding from site Gentamicin Sulfate (Gentamicin Inj) 20 mg OTHER WITH DIALYSIS PRN PRN Reason: Dwell Gentamycin Lock Heparin Sodium (Porcine) (Heparin Inj) 1,000 units OTHER WITH DIALYSIS PRN PRN Reason: Dwell Heparin to Fill Catheter Heparin Sodium (Porcine) (Heparin Inj) 8,000 units OTHER WITH DIALYSIS PRN PRN Reason: for machine prime Hydralazine HCl (Apresoline) 25 mg PO TID [facility] Last Admin: 03/20/18 08:05 Dose: Not Given Dextrose/Sodium Chloride (D5w/Normal Saline Inj) 1,000 mls @ 200 mls/hr IV.CONT .Q5H [facility] Last Admin: 03/20/18 09:45 Dose: 200 mls/hr Sodium Chloride (Ns Inj) 1,000 mls @ 250 mls/hr IV.CONT .Q4H [facility] Last Admin: 03/20/18 08:03 Dose: Not Given Insulin Human Regular 100 unit (/ Sodium Chloride) 100 mls @ 7 mls/hr IV.CONT TITRATE PRN; Protocol PRN Reason: See protocol Last Admin: 03/19/18 23:45 Dose: 7 units/hr, 7 mls/hr Sodium Chloride (Ns Inj) 1,000 mls @ 250 mls/hr IV.CONT .Q4H [facility] Last Admin: 03/20/18 08:03 Dose: Not Given Sodium Chloride (Ns Inj) 1,000 mls @ 0 mls/hr OTHER .Q0M PRN PRN Reason: for prime and rinse back Sodium Chloride (Ns Inj) 1,000 mls @ 200 mls/hr OTHER .Q5H PRN PRN Reason: for dialyzer flush PRN Albumin Human (Flexbumin 25% Inj) 100 mls @ 60 mls/hr IV.SIG WITH DIALYSIS PRN PRN Reason: hypotension / volume replace Sodium Chloride (Ns Inj) 1,000 mls @ 0 mls/hr IV.CONT .Q0M PRN PRN Reason: hypotension / volume replace Labetalol HCl (Trandate Inj) 10 mg IV.PUSH Q1H PRN PRN Reason: Sbp>165, Dbp>90, Hr>65 Lactulose (Lactulose Liq) 30 ml PO DAILY PRN PRN Reason: SEVERE CONSITIPATION Loratadine (Claritin) 10 mg PO DAILY [facility] Last Admin: 03/20/18 08:03 Dose: 10 mg Mannitol (Mannitol Inj) 12.5 gm IV.PUSH UNSCH PRN PRN Reason: hypotension / volume replace Metoprolol Tartrate (Lopressor) 25 mg PO BID [facility] Morphine Sulfate (Morphine Inj) 2 mg IV.PUSH Q2H PRN PRN Reason: PAIN SCALE 6 TO 10 Last Admin: 03/20/18 04:39 Dose: 2 mg Multivitamins (Theragran) 1 tab PO DAILY [facility] Last Admin: 03/20/18 08:03 Dose: 1 tab Nitroglycerin (Nitrostat Sl) 0.4 mg SL Q5M PRN PRN Reason: CHEST PAIN Nitroglycerin (Nitro-Bid 2% Oint) 1 inch TOPICAL Q6HR PRN PRN Reason: SBP>160, DBP>90 Ondansetron HCl (Zofran Inj) 4 mg IV.PUSH Q6H PRN PRN Reason: NAUSEA OR VOMITING Ondansetron HCl (Zofran Inj) 4 mg IV.PUSH UNSCH PRN PRN Reason: NAUSEA OR VOMITING Oxycodone/Acetaminophen (Percocet 5/325 Mg) 1 tab PO Q6H PRN PRN Reason: PAIN SCALE 6 TO 10 Pantoprazole Sodium (Protonix) 40 mg PO DAILY [facility] Last Admin: 03/20/18 08:04 Dose: 40 mg Pregabalin (Lyrica) 150 mg PO BID [facility] Last Admin: 03/20/18 08:05 Dose: 150 mg Senna/Docusate Sodium (Margarita-Colace) 1 tab PO BID [facility] Last Admin: 03/20/18 08:05 Dose: Not Given Sennosides (Senokot) 17.2 mg PO Q12H PRN PRN Reason: Moderate Constipation Sertraline HCl (Zoloft) 100 mg PO DAILY [facility] Last Admin: 03/20/18 08:06 Dose: 100 mg Sodium Bicarbonate (Sodium Bicarbonate 8.4% Inj) 50 meq IV.PUSH UNSCH PRN PRN Reason: for pH 6.9 to 7.0 Sodium Bicarbonate (Sodium Bicarbonate 8.4% Inj) 100 meq IV.PUSH UNSCH PRN PRN Reason: for pH less than 6.9 Sodium Chloride (Ns Flush) 2 ml IV.FLUSH PRN PRN PRN Reason: FLUSH AFTER USING IV ACCESS Sodium Chloride (Ns Flush) 2 ml IV.FLUSH BID [facility] Last Admin: 03/20/18 08:05 Dose: Not Given Sodium Chloride (Ns Flush) 5 ml IV.FLUSH UNSCH PRN PRN Reason: flush each lumen during HD Topiramate (Topamax) 25 mg PO BID [facility] Last Admin: 03/20/18 08:05 Dose: 25 mg Vancomycin HCl (Vancomycin Po) 250 mg PO QID [facility] Stop: 03/21/18 20:59 Last Admin: 03/20/18 08:06 Dose: 250 mg Exam Vital signs: Vital Signs 03/19/18 15:56 03/19/18 16:00 03/19/18 17:23 Temperature 98.3 F Pulse Rate 92 H 89 85 Respiratory Rate 18 17 17 Blood Pressure 97/50 L 97/50 L 109/64 Pulse Oximetry 100 96 96 03/19/18 20:00 03/19/18 20:02 03/19/18 20:30 Temperature Pulse Rate Respiratory Rate Blood Pressure Pulse Oximetry 98 97 98 03/19/18 20:35 03/19/18 22:21 03/20/18 03:00 Temperature 97.9 F 98.2 F Pulse Rate 81 75 77 Respiratory Rate 18 22 22 Blood Pressure 132/78 127/79 120/79 Pulse Oximetry 99 95 95 03/20/18 04:00 03/20/18 05:00 03/20/18 06:00 Temperature Pulse Rate 76 73 76 Respiratory Rate Blood Pressure 113/74 110/72 99/57 L Pulse Oximetry 03/20/18 07:00 03/20/18 08:00 03/20/18 09:00 Temperature 98.9 F Pulse Rate 77 77 76 Respiratory Rate Blood Pressure 97/56 L 124/77 121/80 Pulse Oximetry 98 03/20/18 09:22 03/20/18 09:30 03/20/18 09:45 Temperature Pulse Rate 75 73 73 Respiratory Rate Blood Pressure 123/69 122/74 Pulse Oximetry 95 95 95 03/20/18 10:00 03/20/18 10:15 03/20/18 10:30 Temperature Pulse Rate 77 79 79 Respiratory Rate Blood Pressure 120/65 119/73 105/59 L Pulse Oximetry 96 96 96 03/20/18 10:45 Temperature Pulse Rate 82 Respiratory Rate Blood Pressure 99/56 L Pulse Oximetry 97 Intake & Output 03/19/18 03/20/18 03/20/18 18:59 06:59 18:59 Intake Total 3125 / 3125 1000 / 1000 Output Total 100 / 100 Balance 3025 / 3025 1000 / 1000 Weight 70 kg 80 kg Intake: IV 3000 / 3000 1000 / 1000 D5W/Normal Saline Inj 1,000 ML 1000 / 1000 1000 / 1000 @ 200 mls/hr IV.CONT .Q5H [facility] Rx#:[id number] NS Inj 1,000 ML @ Wide Open IV. 1999 / 1999 SIG BOLUS ONE Rx#:[id number] Oral 125 / 125 Output: Urine 100 / 100 Other: Weight On Admission 90 kg Narrative: GENERAL: No acute distress. EYES: Pupils equal and round. No scleral icterus. No injection or drainage. NECK: Trachea midline. No JVD. CARDIOVASCULAR: Regular rate and rhythm. No murmur appreciated. Dialysis catheter left chest wall. AVF right lower extremity RESPIRATORY: No accessory muscle use. Clear to auscultation. Breath sounds equal bilaterally. GASTROINTESTINAL: Abdomen soft, non-tender, nondistended. Hepatic and splenic margins not palpable. MUSCULOSKELETAL: No obvious deformities. No clubbing. No cyanosis. Mild Bilateral lower extremity edema. NEUROLOGICAL: Awake and alert. Normal speech. PSYCHIATRIC: Appropriate mood and affect; insight and judgment normal. Results - Lab Results 03/20/18 03:30 03/20/18 03:30 Most recent lab results ABG pH 7.17 (7.380-7.420) L* 03/19/18 16:07 ABG pCO2 33 mmHg (38-42) L 03/19/18 16:07 ABG pO2 83 mmHg (61-120) 03/19/18 16:07 ABG HCO3 12 mmol/L (22-26) L* 03/19/18 16:07 Calcium 7.3 mg/dL (8.5-10.1) L* 03/20/18 03:30 Phosphorus 5.6 mg/dL (2.5-4.9) H 03/20/18 03:30 Magnesium 2.2 mg/dL (1.5-2.5) 03/20/18 03:30 Assessment and Plan - Assessment (1) End stage renal disease Code(s): N18.6 - End stage renal disease Status: Acute Plan: Patient has End stage renal disease on HD MWF AVF right lower extremity need more time for maturation. PermCath 02/20 left IJ Continue Epogen with dialysis Continue Calcitrol and phoslo seen during hemodialysis will remove fluid as tolerated. (2) Type 1 diabetes mellitus with hyperglycemia Code(s): E10.65 - Type 1 diabetes mellitus with hyperglycemia Status: Acute Plan: Blood sugars improving/ not using insulin pump Maintain blood sugars between 140 mg/dl to 180 mg/dl ( (3) Hypertension Code(s): I10 - Essential (primary) hypertension Status: Acute Plan: Blood pressure medication on hold. SBP in the 90's (4) Anemia Code(s): D64.9 - Anemia, unspecified Status: Chronic Plan: HGB at 9.1, Epogen with dialysis <Isi Tyler - Last Filed: 03/20/18 14:08> History of Present Illness Primary Care Provider: Brittany Lovelace Family Provider: Brittany Lovelace [facility] - Medical History Medical History: Medical History (Last Reviewed 03/19/18 @ 19:26 by James Ayon MD) AVF (arteriovenous fistula) Anxiety CKD (chronic kidney disease) stage 5, GFR less than 15 ml/min DVT (deep venous thrombosis) Depression Diabetes Diabetic retinopathy Diabetic ulcer of heel Hypertension Neuropathy - Surgical History Surgical History: Surgical History (Last Reviewed 03/19/18 @ 19:26 by James Ayon MD) Status post right foot surgery - Family History Family History: Family History (Last Updated 03/19/18 @ 19:26 by James Ayon MD) Other Family history unknown Medications and Allergies Active Medications: Active Medications Acetaminophen (Tylenol) 650 mg PO Q6H PRN PRN Reason: FEVER >101F Acetaminophen (Tylenol) 650 mg PO UNSCH PRN PRN Reason: SEE LABEL COMMENTS Albuterol (Albuterol Neb (Prn)) 2.5 mg NEB Q2HR NEB PRN PRN Reason: SHORTNESS OF BREATH/WHEEZING Amlodipine Besylate (Norvasc) 5 mg PO DAILY [facility] Last Admin: 03/20/18 08:05 Dose: Not Given Apixaban (Eliquis) 5 mg PO BID [facility] Last Admin: 03/20/18 08:05 Dose: 5 mg Aspirin (Aspirin Chew) 162 mg PO DAILY [facility] Atorvastatin Calcium (Lipitor) 40 mg PO HS [facility] Bisacodyl (Dulcolax Supp) 10 mg RECTAL DAILY PRN PRN Reason: SEVERE CONSITIPATION Calcitriol (Rocaltrol) 0.25 mcg PO DAILY [facility] Last Admin: 03/20/18 08:04 Dose: 0.25 mcg Calcium Acetate (Phoslo) 1,334 mg PO TIDAC [facility] Last Admin: 03/20/18 11:01 Dose: Not Given Chlorhexidine Gluconate (Chlorhexidine 2% Cloth) 3 pack TOPICAL DAILY@0400 [facility] Stop: 03/25/18 03:59 Last Admin: 03/20/18 06:53 Dose: 3 pack Chlorhexidine Gluconate (Chlorhexidine 2% Cloth) 3 pack TOPICAL DAILY@0400 PRN PRN Reason: Extra cloth needed Stop: 03/25/18 03:59 Clonidine HCl (Catapres) 0.1 mg PO UNSCH PRN PRN Reason: SEE LABEL COMMENTS Diphenhydramine HCl (Benadryl) 25 mg PO UNSCH PRN PRN Reason: SEE LABEL COMMENTS Epoetin Pipo (Epogen Inj) 6,000 unit IV.PUSH UNSCH PRN PRN Reason: SEE LABEL COMMENTS Last Admin: 03/20/18 11:32 Dose: 6,000 unit Ergocalciferol (Vitamind2) 50,000 unit PO Q7D [facility] Last Admin: 03/19/18 21:05 Dose: Not Given Gelatin (Gelfoam 12 Mm/7 Mm Topical) 1 foam TOPICAL UNSCH PRN PRN Reason: help stop bleeding from site Gentamicin Sulfate (Gentamicin Inj) 20 mg OTHER WITH DIALYSIS PRN PRN Reason: Dwell Gentamycin Lock Last Admin: 03/20/18 11:32 Dose: 20 mg Heparin Sodium (Porcine) (Heparin Inj) 1,000 units OTHER WITH DIALYSIS PRN PRN Reason: Dwell Heparin to Fill Catheter Last Admin: 03/20/18 11:32 Dose: 1,000 units Heparin Sodium (Porcine) (Heparin Inj) 8,000 units OTHER WITH DIALYSIS PRN PRN Reason: for machine prime Hydralazine HCl (Apresoline) 25 mg PO TID [facility] Last Admin: 03/20/18 14:02 Dose: 25 mg Dextrose/Sodium Chloride (D5w/Normal Saline Inj) 1,000 mls @ 200 mls/hr IV.CONT .Q5H [facility] Last Admin: 03/20/18 09:45 Dose: 200 mls/hr Sodium Chloride (Ns Inj) 1,000 mls @ 250 mls/hr IV.CONT .Q4H [facility] Last Admin: 03/20/18 13:41 Dose: Not Given Insulin Human Regular 100 unit (/ Sodium Chloride) 100 mls @ 7 mls/hr IV.CONT TITRATE PRN; Protocol PRN Reason: See protocol Last Titration: 03/20/18 12:00 Dose: 2.25 units/hr, 2.25 mls/hr Sodium Chloride (Ns Inj) 1,000 mls @ 250 mls/hr IV.CONT .Q4H [facility] Last Admin: 03/20/18 13:41 Dose: Not Given Sodium Chloride (Ns Inj) 1,000 mls @ 0 mls/hr OTHER .Q0M PRN PRN Reason: for prime and rinse back Sodium Chloride (Ns Inj) 1,000 mls @ 200 mls/hr OTHER .Q5H PRN PRN Reason: for dialyzer flush PRN Albumin Human (Flexbumin 25% Inj) 100 mls @ 60 mls/hr IV.SIG WITH DIALYSIS PRN PRN Reason: hypotension / volume replace Sodium Chloride (Ns Inj) 1,000 mls @ 0 mls/hr IV.CONT .Q0M PRN PRN Reason: hypotension / volume replace Labetalol HCl (Trandate Inj) 10 mg IV.PUSH Q1H PRN PRN Reason: Sbp>165, Dbp>90, Hr>65 Lactulose (Lactulose Liq) 30 ml PO DAILY PRN PRN Reason: SEVERE CONSITIPATION Loratadine (Claritin) 10 mg PO DAILY [facility] Last Admin: 03/20/18 08:03 Dose: 10 mg Mannitol (Mannitol Inj) 12.5 gm IV.PUSH UNSCH PRN PRN Reason: hypotension / volume replace Metoprolol Tartrate (Lopressor) 25 mg PO BID [facility] Morphine Sulfate (Morphine Inj) 2 mg IV.PUSH Q2H PRN PRN Reason: PAIN SCALE 6 TO 10 Last Admin: 03/20/18 04:39 Dose: 2 mg Multivitamins (Theragran) 1 tab PO DAILY [facility] Last Admin: 03/20/18 08:03 Dose: 1 tab Nitroglycerin (Nitrostat Sl) 0.4 mg SL Q5M PRN PRN Reason: CHEST PAIN Nitroglycerin (Nitro-Bid 2% Oint) 1 inch TOPICAL Q6HR PRN PRN Reason: SBP>160, DBP>90 Ondansetron HCl (Zofran Inj) 4 mg IV.PUSH Q6H PRN PRN Reason: NAUSEA OR VOMITING Ondansetron HCl (Zofran Inj) 4 mg IV.PUSH UNSCH PRN PRN Reason: NAUSEA OR VOMITING Oxycodone/Acetaminophen (Percocet 5/325 Mg) 1 tab PO Q6H PRN PRN Reason: PAIN SCALE 6 TO 10 Last Admin: 03/20/18 14:02 Dose: 1 tab Pantoprazole Sodium (Protonix) 40 mg PO DAILY [facility] Last Admin: 03/20/18 08:04 Dose: 40 mg Pregabalin (Lyrica) 150 mg PO BID [facility] Last Admin: 03/20/18 08:05 Dose: 150 mg Senna/Docusate Sodium (Margarita-Colace) 1 tab PO BID [facility] Last Admin: 03/20/18 08:05 Dose: Not Given Sennosides (Senokot) 17.2 mg PO Q12H PRN PRN Reason: Moderate Constipation Sertraline HCl (Zoloft) 100 mg PO DAILY [facility] Last Admin: 03/20/18 08:06 Dose: 100 mg Sodium Bicarbonate (Sodium Bicarbonate 8.4% Inj) 50 meq IV.PUSH UNSCH PRN PRN Reason: for pH 6.9 to 7.0 Sodium Bicarbonate (Sodium Bicarbonate 8.4% Inj) 100 meq IV.PUSH UNSCH PRN PRN Reason: for pH less than 6.9 Sodium Chloride (Ns Flush) 2 ml IV.FLUSH PRN PRN PRN Reason: FLUSH AFTER USING IV ACCESS Sodium Chloride (Ns Flush) 2 ml IV.FLUSH BID [facility] Last Admin: 03/20/18 08:05 Dose: Not Given Sodium Chloride (Ns Flush) 5 ml IV.FLUSH UNSCH PRN PRN Reason: flush each lumen during HD Topiramate (Topamax) 25 mg PO BID [facility] Last Admin: 03/20/18 08:05 Dose: 25 mg Vancomycin HCl (Vancomycin Po) 250 mg PO QID [facility] Stop: 03/21/18 20:59 Last Admin: 03/20/18 14:02 Dose: 250 mg Exam Vital signs: Vital Signs 03/19/18 15:56 03/19/18 16:00 03/19/18 17:23 Temperature 98.3 F Pulse Rate 92 H 89 85 Respiratory Rate 18 17 17 Blood Pressure 97/50 L 97/50 L 109/64 Pulse Oximetry 100 96 96 03/19/18 20:00 03/19/18 20:02 03/19/18 20:30 Temperature Pulse Rate Respiratory Rate Blood Pressure Pulse Oximetry 98 97 98 03/19/18 20:35 03/19/18 22:21 03/20/18 03:00 Temperature 97.9 F 98.2 F Pulse Rate 81 75 77 Respiratory Rate 18 22 22 Blood Pressure 132/78 127/79 120/79 Pulse Oximetry 99 95 95 03/20/18 04:00 03/20/18 05:00 03/20/18 06:00 Temperature Pulse Rate 76 73 76 Respiratory Rate Blood Pressure 113/74 110/72 99/57 L Pulse Oximetry 03/20/18 07:00 03/20/18 08:00 03/20/18 09:00 Temperature 98.9 F Pulse Rate 77 77 76 Respiratory Rate Blood Pressure 97/56 L 124/77 121/80 Pulse Oximetry 98 03/20/18 09:22 03/20/18 09:30 03/20/18 09:45 Temperature Pulse Rate 75 73 73 Respiratory Rate Blood Pressure 123/69 122/74 Pulse Oximetry 95 95 95 03/20/18 10:00 03/20/18 10:15 03/20/18 10:30 Temperature Pulse Rate 77 79 79 Respiratory Rate Blood Pressure 120/65 119/73 105/59 L Pulse Oximetry 96 96 96 03/20/18 10:45 03/20/18 11:00 03/20/18 11:15 Temperature Pulse Rate 82 82 84 Respiratory Rate Blood Pressure 99/56 L 91/53 L 92/53 L Pulse Oximetry 97 97 95 03/20/18 11:30 03/20/18 11:45 03/20/18 12:00 Temperature 98.8 F Pulse Rate 85 83 86 Respiratory Rate Blood Pressure 117/59 L 121/69 131/71 Pulse Oximetry 97 96 97 03/20/18 12:15 03/20/18 12:30 Temperature Pulse Rate 87 87 Respiratory Rate Blood Pressure 155/82 H 150/85 H Pulse Oximetry 96 95 Intake & Output 03/19/18 03/20/18 03/20/18 18:59 06:59 18:59 Intake Total 3125 / 3125 1000 / 1000 Output Total 100 / 100 1999 Balance 3025 / 3025 -1000 / -1000 Weight 70 kg 80 kg Intake: IV 3000 / 3000 1000 / 1000 D5W/Normal Saline Inj 1,000 ML 1000 / 1000 1000 / 1000 @ 200 mls/hr IV.CONT .Q5H [facility] Rx#:[id number] NS Inj 1,000 ML @ Wide Open IV. 1999 SIG BOLUS ONE Rx#:[id number] Oral 125 / 125 Output: Urine 100 / 100 Hemodialysis Amount 1999 Other: Weight On Admission 90 kg Results - Lab Results 03/20/18 03:30 03/20/18 03:30 Most recent lab results ABG pH 7.17 (7.380-7.420) L* 03/19/18 16:07 ABG pCO2 33 mmHg (38-42) L 03/19/18 16:07 ABG pO2 83 mmHg (61-120) 03/19/18 16:07 ABG HCO3 12 mmol/L (22-26) L* 03/19/18 16:07 Calcium 7.3 mg/dL (8.5-10.1) L* 03/20/18 03:30 Phosphorus 5.6 mg/dL (2.5-4.9) H 03/20/18 03:30 Magnesium 2.2 mg/dL (1.5-2.5) 03/20/18 03:30 Assessment and Plan - Assessment (1) End stage renal disease Code(s): N18.6 - End stage renal disease Status: Acute (2) Type 1 diabetes mellitus with hyperglycemia Code(s): E10.65 - Type 1 diabetes mellitus with hyperglycemia Status: Acute (3) Hypertension Code(s): I10 - Essential (primary) hypertension Status: Acute (4) Anemia Code(s): D64.9 - Anemia, unspecified Status: Chronic - Attending Attestation Patient seen and examined; records reviewed; agree with the plan and recommendations of the [employer]
--- NOTE | 2018-03-20 13:56 | MB ---
cc: Antonio Pablo DO DATE: 03/20/2018 REASON FOR CONSULTATION: Elevated troponin. HISTORY OF PRESENT ILLNESS: Gian Watkins is a pleasant 37-year-old male who presented to [facility] due to hypotension. He recently was started on dialysis and this was his first time at the outpatient dialysis center. He presented and had a temperature of 100.3 and a blood pressure of 70/30. He was also noted to have a blood sugar of 522. He was sent to the emergency room. Apparently he received 1 liter of normal saline which led to resolution of his hypotension. He has since been on an insulin drip and lab work has been corrected. During his workup he was found to have an elevated troponin of 0.53. I was asked to see him for this. In discussing with him, he denies chest pain or shortness of breath. He states that this is the first time that he has ever had significant hypotension. He is resting comfortably and hemodynamically stable. PAST MEDICAL HISTORY: 1. Chronic kidney disease stage V, started on dialysis. 2. Anxiety. 3. Deep venous thrombosis. 4. Depression. 5. Diabetes. 6. Diabetic retinopathy. 7. Diabetic ulcer of the heel. 8. Hypertension. 9. Neuropathy. PAST SURGICAL HISTORY: 1. Right foot surgery. 2. AV fistula placement. ALLERGIES: 1. AMOXICILLIN. 2. BROCCOLI. 3. MUSHROOMS. 4. PENICILLIN G. MEDICATIONS: 1. Eliquis 5 mg b.i.d. 2. Aspirin 81 mg daily. 3. Zoloft 100 mg daily. 4. Topiramate 25 mg b.i.d. 5. Norvasc 10 mg daily. 6. Calcitriol 0.25 mcg daily. 7. Hydralazine 100 mg t.i.d. 8. Metoprolol tartrate 25 mg b.i.d. 9. Lasix 40 mg daily. 10. Calcium acetate 1334 three times a day. 11. Lyrica 150 mg b.i.d. 12. Insulin pump. 13. Claritin 10 mg daily. FAMILY HISTORY: Denies sudden cardiac within the family. SOCIAL HISTORY: The patient previously smoked cigarettes, now uses an E-cigarette. Denies alcohol or drug abuse. REVIEW OF SYSTEMS: Fourteen systems were reviewed, including osteopathic. Pertinent positives and negatives as above, otherwise negative. PHYSICAL EXAMINATION: VITAL SIGNS: Temperature 98.8, heart rate 87, blood pressure 150/85, respirations 18, pulse oximetry 95% on room air. GENERAL: The patient appears well, in no acute distress, alert, awake, and oriented x3. HEENT: Extraocular muscles intact. Mucous membranes moist. NECK: Supple. No JVD at 45 degrees. No carotid bruits heard bilaterally. Carotid upstroke is brisk in nature. HEART: Regular rate and rhythm. Positive first and second heart sounds were noted. No murmurs, gallops, or rubs. LUNGS: Clear to auscultation bilaterally. No wheezes, rales, or rhonchi. ABDOMEN: Soft, nontender, nondistended. No organomegaly noted. EXTREMITIES: Show no clubbing, cyanosis, or edema. Femoral and distal pulses are intact bilaterally. NEUROLOGIC: No focal deficits. SKIN: Warm, dry, and intact. OSTEOPATHIC: No kyphoscoliosis, lordosis, or paraspinal tender points. LABORATORY DATA: Hemoglobin 9.1, hematocrit 27.9, platelets 217. Potassium 3.5, BUN 67, creatinine 6.83, troponin 0.53. Electrocardiogram (03/19/2018 at 1547): Sinus rhythm, minimal ST depression. IMPRESSION: 1. Mildly elevated troponin. 2. Diabetic ketoacidosis. 3. New chronic kidney disease V, on hemodialysis. 4. Hypotension before dialysis. RECOMMENDATIONS: 1. Mr. Watkins presented with hypotension and DKA. This has since resolved with IV fluids and insulin. 2. He did have a minimally elevated troponin, but in the setting of his kidney disease as well as DKA and hypotension, I believe that this is most likely type 2 in nature. 3. We will plan on having him undergo a pharmacologic nuclear stress test to evaluate his coronary anatomy for possible blockages. 4. We will check a 2-D echo to look at his overall left ventricular function, cardiac structure, and possible myelopathy. 5. Further recommendations will be made based on the hospital course. Thank you for allowing me to see Gian Watkins. If there are any questions, please do not hesitate to call. Antonio Pablo DO [facility]/ , 01:24 PM , 01:36 PM
[2018-03-20 14:36] LABS: Beta Hydroxybutyric Acid 0.54 mmol/L (0.00-0.39); Calcium 7.5 mg/dL (8.5-10.1); Carbon Dioxide 25.5 meq/L (21.0-32.0); Magnesium 1.9 mg/dL (1.5-2.5); Phosphorus 2.9 mg/dL (2.5-4.9); Potassium 3.5 meq/L (3.5-5.1)
--- NOTE | 2018-03-20 14:52 | P.PN ---
Subjective Interval history: Nursing denies any deterioration since last night. Patient himself has no chest pain no shortness of breath. Says he is very hungry. Says that the Lortab is not doing enough for pain control for him. He says he takes tramadol at home for his arthritis. Physical Exam Vital signs: Vital Signs 03/19/18 15:56 03/19/18 16:00 03/19/18 17:23 Temperature 98.3 F Pulse Rate 92 H 89 85 Respiratory Rate 18 17 17 Blood Pressure 97/50 L 97/50 L 109/64 Pulse Oximetry 100 96 96 03/19/18 20:00 03/19/18 20:02 03/19/18 20:30 Temperature Pulse Rate Respiratory Rate Blood Pressure Pulse Oximetry 98 97 98 03/19/18 20:35 03/19/18 22:21 03/20/18 03:00 Temperature 97.9 F 98.2 F Pulse Rate 81 75 77 Respiratory Rate 18 22 22 Blood Pressure 132/78 127/79 120/79 Pulse Oximetry 99 95 95 03/20/18 04:00 03/20/18 05:00 03/20/18 06:00 Temperature Pulse Rate 76 73 76 Respiratory Rate Blood Pressure 113/74 110/72 99/57 L Pulse Oximetry 03/20/18 07:00 03/20/18 08:00 03/20/18 09:00 Temperature 98.9 F Pulse Rate 77 77 76 Respiratory Rate Blood Pressure 97/56 L 124/77 121/80 Pulse Oximetry 98 03/20/18 09:22 03/20/18 09:30 03/20/18 09:45 Temperature Pulse Rate 75 73 73 Respiratory Rate Blood Pressure 123/69 122/74 Pulse Oximetry 95 95 95 03/20/18 10:00 03/20/18 10:15 03/20/18 10:30 Temperature Pulse Rate 77 79 79 Respiratory Rate Blood Pressure 120/65 119/73 105/59 L Pulse Oximetry 96 96 96 03/20/18 10:45 03/20/18 11:00 03/20/18 11:15 Temperature Pulse Rate 82 82 84 Respiratory Rate Blood Pressure 99/56 L 91/53 L 92/53 L Pulse Oximetry 97 97 95 03/20/18 11:30 03/20/18 11:45 03/20/18 12:00 Temperature 98.8 F Pulse Rate 85 83 86 Respiratory Rate Blood Pressure 117/59 L 121/69 131/71 Pulse Oximetry 97 96 97 03/20/18 12:15 03/20/18 12:30 Temperature Pulse Rate 87 87 Respiratory Rate Blood Pressure 155/82 H 150/85 H Pulse Oximetry 96 95 Intake & Output 03/19/18 03/20/18 03/20/18 18:59 06:59 18:59 Intake Total 3125 / 3125 1000 / 1000 Output Total 100 / 100 1999 Balance 3025 / 3025 -1000 / -1000 Weight 70 kg 80 kg Intake: IV 3000 / 3000 1000 / 1000 D5W/Normal Saline Inj 1,000 ML 1000 / 1000 1000 / 1000 @ 200 mls/hr IV.CONT .Q5H JORDAN Rx#:[id number] NS Inj 1,000 ML @ Wide Open IV. 1999 SIG BOLUS ONE Rx#:[id number] Oral 125 / 125 Output: Urine 100 / 100 Hemodialysis Amount 1999 Other: Weight On Admission 90 kg Narrative: Heart sounds regular rate rhythm, no murmurs Clear lungs bilaterally, unlabored breathing Results - Labs CBC & Chem 7: 03/20/18 03:30 03/20/18 14:10 Laboratory Results - last 24 hr 03/19/18 03/19/18 03/19/18 16:07 16:10 16:10 WBC 9.2 RBC 3.38 L Hgb 9.3 L Hct 30.6 L MCV 90.4 MCH 27.6 MCHC 30.5 L RDW 17.0 Plt Count 235 MPV 9.2 Neut % (Auto) 81.7 H Lymph % (Auto) 10.0 Christian % (Auto) 7.8 Eos % (Auto) 0.1 Baso % (Auto) 0.4 Neut # (Auto) 7.5 Lymph # (Auto) 0.9 L Christian # (Auto) 0.7 Eos # (Auto) 0.0 Baso # (Auto) 0.0 WBC Differential . Differential Comment Auto diff final PT INR APTT Puncture Site Left radial Patient Temperature 98.6 O2 Saturation 92 ABG pH 7.17 L* ABG pCO2 33 L ABG pO2 83 ABG HCO3 12 L* ABG O2 Content 11.8 L ABG Base Excess -15.2 L ABG Methemoglobin 0.9 Zain Test Present Hemoglobin 9.1 L Carboxyhemoglobin 1.7 Inspired O2 21 Critical Value Yes Sodium 135 L Potassium 4.7 Chloride 99 Carbon Dioxide 14.5 L Anion Gap 22 H BUN 74 H Creatinine 7.41 H Estimated GFR 8 L POC Glucose Random Glucose 520 H* Lactic Acid Calcium 7.5 L Prot Corrected Calcium Phosphorus Magnesium 2.6 H Total Bilirubin 0.4 AST 13 L ALT 22 Alkaline Phosphatase 108 Troponin I 0.03 Total Protein 6.0 L Albumin 3.0 L Lipase Beta-Hydroxybutyric Acd Urine Color Urine Clarity Urine pH Ur Specific [place] Urine Protein Urine Glucose (UA) Urine Ketones Urine Occult Blood Urine Nitrate Urine Bilirubin Urine Urobilinogen Ur Leukocyte Esterase Urine WBC Ur Squamous Epith Cells Amorphous Sediment Urine Bacteria Hyaline Casts Granular Casts Waxy Casts Urine Mucus Micro UA Comment Ur Microscopic Review Urine Culture Comments Nasal Screen MRSA (PCR) 03/19/18 03/19/18 03/19/18 16:10 16:10 16:10 WBC RBC Hgb Hct MCV MCH MCHC RDW Plt Count MPV Neut % (Auto) Lymph % (Auto) Christian % (Auto) Eos % (Auto) Baso % (Auto) Neut # (Auto) Lymph # (Auto) Christian # (Auto) Eos # (Auto) Baso # (Auto) WBC Differential Differential Comment PT 10.3 INR 1.0 APTT 25.9 Puncture Site Patient Temperature O2 Saturation ABG pH ABG pCO2 ABG pO2 ABG HCO3 ABG O2 Content ABG Base Excess ABG Methemoglobin Zain Test Hemoglobin Carboxyhemoglobin Inspired O2 Critical Value Sodium Potassium Chloride Carbon Dioxide Anion Gap BUN Creatinine Estimated GFR POC Glucose Random Glucose Lactic Acid 1.3 Calcium Prot Corrected Calcium Phosphorus Magnesium Total Bilirubin AST ALT Alkaline Phosphatase Troponin I Total Protein Albumin Lipase Beta-Hydroxybutyric Acd 4.22 H Urine Color Urine Clarity Urine pH Ur Specific [place] Urine Protein Urine Glucose (UA) Urine Ketones Urine Occult Blood Urine Nitrate Urine Bilirubin Urine Urobilinogen Ur Leukocyte Esterase Urine WBC Ur Squamous Epith Cells Amorphous Sediment Urine Bacteria Hyaline Casts Granular Casts Waxy Casts Urine Mucus Micro UA Comment Ur Microscopic Review Urine Culture Comments Nasal Screen MRSA (PCR) 03/19/18 03/19/18 03/19/18 16:10 20:30 20:34 WBC RBC Hgb Hct MCV MCH MCHC RDW Plt Count MPV Neut % (Auto) Lymph % (Auto) Christian % (Auto) Eos % (Auto) Baso % (Auto) Neut # (Auto) Lymph # (Auto) Christian # (Auto) Eos # (Auto) Baso # (Auto) WBC Differential Differential Comment PT INR APTT Puncture Site Patient Temperature O2 Saturation ABG pH ABG pCO2 ABG pO2 ABG HCO3 ABG O2 Content ABG Base Excess ABG Methemoglobin Zain Test Hemoglobin Carboxyhemoglobin Inspired O2 Critical Value Sodium Potassium Chloride Carbon Dioxide Anion Gap BUN Creatinine Estimated GFR POC Glucose Random Glucose Lactic Acid Calcium Prot Corrected Calcium Phosphorus 6.1 H Magnesium Total Bilirubin AST ALT Alkaline Phosphatase Troponin I 0.39 H Total Protein Albumin Lipase Beta-Hydroxybutyric Acd Urine Color Yellow Urine Clarity Cloudy H Urine pH 5.0 Ur Specific [place] 1.011 Urine Protein 500 or greater Urine Glucose (UA) 500 or greater Urine Ketones Trace Urine Occult Blood Negative Urine Nitrate Negative Urine Bilirubin Negative Urine Urobilinogen Less than 2 Ur Leukocyte Esterase Negative Urine WBC 6 H Ur Squamous Epith Cells <1 Amorphous Sediment Rare H Urine Bacteria Rare H Hyaline Casts 5 Granular Casts 1 Waxy Casts 1 Urine Mucus Few H Micro UA Comment Culture not ind Ur Microscopic Review Not Reportable Urine Culture Comments Culture not ind Nasal Screen MRSA (PCR) 03/19/18 03/19/18 03/19/18 22:25 22:27 23:18 WBC RBC Hgb Hct MCV MCH MCHC RDW Plt Count MPV Neut % (Auto) Lymph % (Auto) Christian % (Auto) Eos % (Auto) Baso % (Auto) Neut # (Auto) Lymph # (Auto) Christian # (Auto) Eos # (Auto) Baso # (Auto) WBC Differential Differential Comment PT INR APTT Puncture Site Patient Temperature O2 Saturation ABG pH ABG pCO2 ABG pO2 ABG HCO3 ABG O2 Content ABG Base Excess ABG Methemoglobin Zain Test Hemoglobin Carboxyhemoglobin Inspired O2 Critical Value Sodium Potassium Chloride Carbon Dioxide Anion Gap BUN Creatinine Estimated GFR POC Glucose 218 H 222 H Random Glucose Lactic Acid Calcium Prot Corrected Calcium Phosphorus Magnesium Total Bilirubin AST ALT Alkaline Phosphatase Troponin I Total Protein Albumin Lipase Beta-Hydroxybutyric Acd Urine Color Urine Clarity Urine pH Ur Specific [place] Urine Protein Urine Glucose (UA) Urine Ketones Urine Occult Blood Urine Nitrate Urine Bilirubin Urine Urobilinogen Ur Leukocyte Esterase Urine WBC Ur Squamous Epith Cells Amorphous Sediment Urine Bacteria Hyaline Casts Granular Casts Waxy Casts Urine Mucus Micro UA Comment Ur Microscopic Review Urine Culture Comments Nasal Screen MRSA (PCR) Not detected 03/20/18 03/20/18 03/20/18 00:07 00:16 01:14 WBC RBC Hgb Hct MCV MCH MCHC RDW Plt Count MPV Neut % (Auto) Lymph % (Auto) Christian % (Auto) Eos % (Auto) Baso % (Auto) Neut # (Auto) Lymph # (Auto) Christian # (Auto) Eos # (Auto) Baso # (Auto) WBC Differential Differential Comment PT INR APTT Puncture Site Patient Temperature O2 Saturation ABG pH ABG pCO2 ABG pO2 ABG HCO3 ABG O2 Content ABG Base Excess ABG Methemoglobin Zain Test Hemoglobin Carboxyhemoglobin Inspired O2 Critical Value Sodium 139 Potassium 4.3 Chloride 106 Carbon Dioxide 16.5 L Anion Gap 17 H BUN 69 H Creatinine 6.85 H Estimated GFR 9 L POC Glucose 233 H 218 H Random Glucose 236 H D Lactic Acid Calcium 7.5 L Prot Corrected Calcium Phosphorus 5.9 H Magnesium 2.4 Total Bilirubin AST ALT Alkaline Phosphatase Troponin I 0.53 H Total Protein Albumin Lipase Beta-Hydroxybutyric Acd Urine Color Urine Clarity Urine pH Ur Specific [place] Urine Protein Urine Glucose (UA) Urine Ketones Urine Occult Blood Urine Nitrate Urine Bilirubin Urine Urobilinogen Ur Leukocyte Esterase Urine WBC Ur Squamous Epith Cells Amorphous Sediment Urine Bacteria Hyaline Casts Granular Casts Waxy Casts Urine Mucus Micro UA Comment Ur Microscopic Review Urine Culture Comments Nasal Screen MRSA (PCR) 03/20/18 03/20/18 03/20/18 02:12 03:14 03:30 WBC RBC Hgb Hct MCV MCH MCHC RDW Plt Count MPV Neut % (Auto) Lymph % (Auto) Christian % (Auto) Eos % (Auto) Baso % (Auto) Neut # (Auto) Lymph # (Auto) Christian # (Auto) Eos # (Auto) Baso # (Auto) WBC Differential Differential Comment PT INR APTT Puncture Site Patient Temperature O2 Saturation ABG pH ABG pCO2 ABG pO2 ABG HCO3 ABG O2 Content ABG Base Excess ABG Methemoglobin Zain Test Hemoglobin Carboxyhemoglobin Inspired O2 Critical Value Sodium 142 Potassium 3.5 D Chloride 109 H Carbon Dioxide 18.5 L Anion Gap 15 BUN 67 H Creatinine 6.83 H Estimated GFR 9 L POC Glucose 177 H 123 H Random Glucose 109 H D Lactic Acid Calcium 7.3 L* Prot Corrected Calcium 8.1 L Phosphorus 5.6 H Magnesium 2.2 Total Bilirubin AST ALT Alkaline Phosphatase Troponin I Total Protein 5.6 L Albumin Lipase 86 Beta-Hydroxybutyric Acd 0.07 D Urine Color Urine Clarity Urine pH Ur Specific [place] Urine Protein Urine Glucose (UA) Urine Ketones Urine Occult Blood Urine Nitrate Urine Bilirubin Urine Urobilinogen Ur Leukocyte Esterase Urine WBC Ur Squamous Epith Cells Amorphous Sediment Urine Bacteria Hyaline Casts Granular Casts Waxy Casts Urine Mucus Micro UA Comment Ur Microscopic Review Urine Culture Comments Nasal Screen MRSA (PCR) 03/20/18 03/20/18 03/20/18 03:30 03:30 04:00 WBC 7.3 RBC 3.25 L Hgb 9.1 L Hct 27.9 L MCV 86.0 D MCH 28.0 MCHC 32.6 RDW 15.7 Plt Count 217 MPV 8.2 Neut % (Auto) 62.7 Lymph % (Auto) 28.8 Christian % (Auto) 7.4 Eos % (Auto) 0.5 Baso % (Auto) 0.6 Neut # (Auto) 4.6 Lymph # (Auto) 2.1 Christian # (Auto) 0.5 Eos # (Auto) 0.0 Baso # (Auto) 0.0 WBC Differential . Differential Comment Auto diff final PT 11.1 INR 1.1 APTT 27.0 Puncture Site Patient Temperature O2 Saturation ABG pH ABG pCO2 ABG pO2 ABG HCO3 ABG O2 Content ABG Base Excess ABG Methemoglobin Zain Test Hemoglobin Carboxyhemoglobin Inspired O2 Critical Value Sodium Potassium Chloride Carbon Dioxide Anion Gap BUN Creatinine Estimated GFR POC Glucose 71 Random Glucose Lactic Acid Calcium Prot Corrected Calcium Phosphorus Magnesium Total Bilirubin AST ALT Alkaline Phosphatase Troponin I Total Protein Albumin Lipase Beta-Hydroxybutyric Acd Urine Color Urine Clarity Urine pH Ur Specific [place] Urine Protein Urine Glucose (UA) Urine Ketones Urine Occult Blood Urine Nitrate Urine Bilirubin Urine Urobilinogen Ur Leukocyte Esterase Urine WBC Ur Squamous Epith Cells Amorphous Sediment Urine Bacteria Hyaline Casts Granular Casts Waxy Casts Urine Mucus Micro UA Comment Ur Microscopic Review Urine Culture Comments Nasal Screen MRSA (PCR) 03/20/18 03/20/18 03/20/18 04:32 05:11 05:46 WBC RBC Hgb Hct MCV MCH MCHC RDW Plt Count MPV Neut % (Auto) Lymph % (Auto) Christian % (Auto) Eos % (Auto) Baso % (Auto) Neut # (Auto) Lymph # (Auto) Christian # (Auto) Eos # (Auto) Baso # (Auto) WBC Differential Differential Comment PT INR APTT Puncture Site Patient Temperature O2 Saturation ABG pH ABG pCO2 ABG pO2 ABG HCO3 ABG O2 Content ABG Base Excess ABG Methemoglobin Zani Test Hemoglobin Carboxyhemoglobin Inspired O2 Critical Value Sodium Potassium Chloride Carbon Dioxide Anion Gap BUN Creatinine Estimated GFR POC Glucose 138 H 124 H 130 H Random Glucose Lactic Acid Calcium Prot Corrected Calcium Phosphorus Magnesium Total Bilirubin AST ALT Alkaline Phosphatase Troponin I Total Protein Albumin Lipase Beta-Hydroxybutyric Acd Urine Color Urine Clarity Urine pH Ur Specific [place] Urine Protein Urine Glucose (UA) Urine Ketones Urine Occult Blood Urine Nitrate Urine Bilirubin Urine Urobilinogen Ur Leukocyte Esterase Urine WBC Ur Squamous Epith Cells Amorphous Sediment Urine Bacteria Hyaline Casts Granular Casts Waxy Casts Urine Mucus Micro UA Comment Ur Microscopic Review Urine Culture Comments Nasal Screen MRSA (PCR) 03/20/18 03/20/18 03/20/18 06:30 07:23 08:27 WBC RBC Hgb Hct MCV MCH MCHC RDW Plt Count MPV Neut % (Auto) Lymph % (Auto) Christian % (Auto) Eos % (Auto) Baso % (Auto) Neut # (Auto) Lymph # (Auto) Christian # (Auto) Eos # (Auto) Baso # (Auto) WBC Differential Differential Comment PT INR APTT Puncture Site Patient Temperature O2 Saturation ABG pH ABG pCO2 ABG pO2 ABG HCO3 ABG O2 Content ABG Base Excess ABG Methemoglobin Zain Test Hemoglobin Carboxyhemoglobin Inspired O2 Critical Value Sodium Potassium Chloride Carbon Dioxide Anion Gap BUN Creatinine Estimated GFR POC Glucose 154 H 152 H Random Glucose Lactic Acid Calcium Prot Corrected Calcium Phosphorus Magnesium Total Bilirubin AST ALT Alkaline Phosphatase Troponin I 0.35 H Total Protein Albumin Lipase Beta-Hydroxybutyric Acd Urine Color Urine Clarity Urine pH Ur Specific [place] Urine Protein Urine Glucose (UA) Urine Ketones Urine Occult Blood Urine Nitrate Urine Bilirubin Urine Urobilinogen Ur Leukocyte Esterase Urine WBC Ur Squamous Epith Cells Amorphous Sediment Urine Bacteria Hyaline Casts Granular Casts Waxy Casts Urine Mucus Micro UA Comment Ur Microscopic Review Urine Culture Comments Nasal Screen MRSA (PCR) 03/20/18 03/20/18 03/20/18 08:53 09:32 10:01 WBC RBC Hgb Hct MCV MCH MCHC RDW Plt Count MPV Neut % (Auto) Lymph % (Auto) Christian % (Auto) Eos % (Auto) Baso % (Auto) Neut # (Auto) Lymph # (Auto) Christian # (Auto) Eos # (Auto) Baso # (Auto) WBC Differential Differential Comment PT INR APTT Puncture Site Patient Temperature O2 Saturation ABG pH ABG pCO2 ABG pO2 ABG HCO3 ABG O2 Content ABG Base Excess ABG Methemoglobin Zain Test Hemoglobin Carboxyhemoglobin Inspired O2 Critical Value Sodium Potassium Chloride Carbon Dioxide Anion Gap BUN Creatinine Estimated GFR POC Glucose 122 H 116 H 118 H Random Glucose Lactic Acid Calcium Prot Corrected Calcium Phosphorus Magnesium Total Bilirubin AST ALT Alkaline Phosphatase Troponin I Total Protein Albumin Lipase Beta-Hydroxybutyric Acd Urine Color Urine Clarity Urine pH Ur Specific [place] Urine Protein Urine Glucose (UA) Urine Ketones Urine Occult Blood Urine Nitrate Urine Bilirubin Urine Urobilinogen Ur Leukocyte Esterase Urine WBC Ur Squamous Epith Cells Amorphous Sediment Urine Bacteria Hyaline Casts Granular Casts Waxy Casts Urine Mucus Micro UA Comment Ur Microscopic Review Urine Culture Comments Nasal Screen MRSA (PCR) 03/20/18 03/20/18 03/20/18 10:29 10:59 12:02 WBC RBC Hgb Hct MCV MCH MCHC RDW Plt Count MPV Neut % (Auto) Lymph % (Auto) Christian % (Auto) Eos % (Auto) Baso % (Auto) Neut # (Auto) Lymph # (Auto) Christian # (Auto) Eos # (Auto) Baso # (Auto) WBC Differential Differential Comment PT INR APTT Puncture Site Patient Temperature O2 Saturation ABG pH ABG pCO2 ABG pO2 ABG HCO3 ABG O2 Content ABG Base Excess ABG Methemoglobin Zain Test Hemoglobin Carboxyhemoglobin Inspired O2 Critical Value Sodium Potassium Chloride Carbon Dioxide Anion Gap BUN Creatinine Estimated GFR POC Glucose 125 H 189 H 193 H Random Glucose Lactic Acid Calcium Prot Corrected Calcium Phosphorus Magnesium Total Bilirubin AST ALT Alkaline Phosphatase Troponin I Total Protein Albumin Lipase Beta-Hydroxybutyric Acd Urine Color Urine Clarity Urine pH Ur Specific [place] Urine Protein Urine Glucose (UA) Urine Ketones Urine Occult Blood Urine Nitrate Urine Bilirubin Urine Urobilinogen Ur Leukocyte Esterase Urine WBC Ur Squamous Epith Cells Amorphous Sediment Urine Bacteria Hyaline Casts Granular Casts Waxy Casts Urine Mucus Micro UA Comment Ur Microscopic Review Urine Culture Comments Nasal Screen MRSA (PCR) 03/20/18 03/20/18 03/20/18 12:57 14:07 14:10 WBC RBC Hgb Hct MCV MCH MCHC RDW Plt Count MPV Neut % (Auto) Lymph % (Auto) Christian % (Auto) Eos % (Auto) Baso % (Auto) Neut # (Auto) Lymph # (Auto) Christian # (Auto) Eos # (Auto) Baso # (Auto) WBC Differential Differential Comment PT INR APTT Puncture Site Patient Temperature O2 Saturation ABG pH ABG pCO2 ABG pO2 ABG HCO3 ABG O2 Content ABG Base Excess ABG Methemoglobin Zain Test Hemoglobin Carboxyhemoglobin Inspired O2 Critical Value Sodium 143 Potassium 3.5 Chloride 107 Carbon Dioxide 25.5 Anion Gap 11 BUN 27 H Creatinine 3.87 H Estimated GFR 18 L POC Glucose 185 H 165 H Random Glucose 146 H Lactic Acid Calcium 7.5 L Prot Corrected Calcium Phosphorus 2.9 D Magnesium 1.9 Total Bilirubin AST ALT Alkaline Phosphatase Troponin I Total Protein Albumin Lipase Beta-Hydroxybutyric Acd 0.54 H D Urine Color Urine Clarity Urine pH Ur Specific [place] Urine Protein Urine Glucose (UA) Urine Ketones Urine Occult Blood Urine Nitrate Urine Bilirubin Urine Urobilinogen Ur Leukocyte Esterase Urine WBC Ur Squamous Epith Cells Amorphous Sediment Urine Bacteria Hyaline Casts Granular Casts Waxy Casts Urine Mucus Micro UA Comment Ur Microscopic Review Urine Culture Comments Nasal Screen MRSA (PCR) Microbiology 03/19/18 16:10 Blood - Peripheral Aerobic Blood Culture - Preliminary No growth in 1 day 03/19/18 16:10 Blood - Peripheral Anaerobic Blood Culture - Preliminary No growth in 1 day 03/19/18 16:15 Blood - Peripheral Aerobic Blood Culture - Preliminary No growth in 1 day 03/19/18 16:15 Blood - Peripheral Anaerobic Blood Culture - Preliminary No growth in 1 day - Imaging Impressions Chest X-Ray 03/19/18 15:57 CONCLUSION: 1. Minimal cardiomegaly. 2. No focal infiltrate or pulmonary vascular congestion. Assessment and Plan - Plan 37-year-old white male admitted for DKA and hypotension. Now off of insulin drip. Diabetic ketoacidosis -Gap is now closed, transitioning to subcutaneous insulin, on diet now, frequent Accu-Cheks -Resume pump upon discharge Depression Continue sertraline 100 mg p.o. daily. For depressive disorder Continue pregabalin 100 mg twice daily for peripheral neuropathy Continue topiramate 25 mg p.o. twice daily History of essential hypertension Holding hydralazine 100 mg 3 times daily, metoprolol tartrate with Lovaza twice daily and amlodipine 5 mg daily in light of hypertension resume clinically indicated Holding furosemide 40 mg daily while hypotensive. Resume when indicated Elevated troponins likely secondary to renal disease. Cardiology recommended stress test which is scheduled for tomorrow morning Hypoalbuminemia History of C. difficile History of polypectomy 02/07. -Adematous polyp on pathologuy oral vancomycin 50 mg p.o. every 6 hours 1 days to complete therapy End-stage renal disease on hemodialysis Monday/Monday/Monday through [facility] Secondary hypoparathyroidism Undergoing hemodialysis at this time, nephrology following Anemia of chronic kidney disease History of DVT on chronic apixaban Resume apixaban 5 mg twice daily. Recent right distal ulnar fracture. Evaluate Dr. Green 03/10. No intervention. Continue with ergocalciferol 50,000 units weekly. PT evaluate and treat Access -Left tunneled IJ Vas-Cath continue. Utilize peripheral IV. Central line if indicated
--- NOTE | 2018-03-20 16:22 | ECG ---
Date Performed: 03/19/2018 Time Performed: 15:47:02 PTAGE: 37 years EKG: Sinus rhythm MINIMAL ST DEPRESSION Since the previous tracing, no significant change noted BORDERLINE ECG PREVIOUS TRACING : 02/05/2018 09.04 DOCTOR: Gregory Hull Interpretating Date/Time 03/20/2018 16:18:23
[2018-03-20] MEDS ORDERED: Dextrose 50% in Water 50 ML Vial IV.PUSH PRN (16:43)
[2018-03-20] MEDS: Insulin NovoLOG Aspart Correctional Sugar Inj SQ SCH (17:17)
[2018-03-20 19:41] LABS: Calcium 7.7 mg/dL (8.5-10.1); Carbon Dioxide 24.6 meq/L (21.0-32.0); Potassium 3.6 meq/L (3.5-5.1)
[2018-03-20 19:42] LABS: Phosphorus 3.7 mg/dL (2.5-4.9)
[2018-03-20 19:43] LABS: Beta Hydroxybutyric Acid 0.24 mmol/L (0.00-0.39)
[2018-03-20] MEDS: Metoprolol Tartrate 25 MG Tablet PO SCH (20:58)
[2018-03-21] MEDS: Morphine Inj 4 MG/ML Vial IV.PUSH PRN (05:51)
[2018-03-21] MEDS: Insulin NovoLOG Aspart Correctional Sugar Inj SQ SCH ×4 (06:20→17:27)
[2018-03-21] MEDS: Chlorhexidine Gluconate 2% 1 Pack (2 Cloths) TOPICAL SCH (06:24)
[2018-03-21] MEDS: Calcium Acetate 667 MG Capsule PO SCH ×3 (08:37→17:27)
[2018-03-21] MEDS: amLODIPine 5 MG Tablet PO SCH (09:37)
[2018-03-21] MEDS: Calcitriol 0.25 MCG Capsule PO SCH (09:37)
[2018-03-21] MEDS: Loratadine 10 MG Tablet PO SCH (09:37)
[2018-03-21] MEDS: Sertraline 100 MG Tablet PO SCH (09:37)
[2018-03-21] MEDS: hydrALAZINE 25 MG Tablet PO SCH ×3 (09:37→17:27)
[2018-03-21] MEDS: Metoprolol Tartrate 25 MG Tablet PO SCH (09:38)
[2018-03-21] MEDS: Senna/Docusate Sodium 8.6/50 MG Tablet PO SCH (09:38)
[2018-03-21] MEDS: Topiramate 25 MG Tablet PO SCH (09:38)
[2018-03-21] MEDS: Pregabalin 75 MG Capsule PO SCH (09:39)
--- NOTE | 2018-03-21 11:17 | P.DCO ---
- Diagnosis (1) DKA, type 1 - Home Health Nursing Order: Medical education, Signs/symptoms of disease process, Diabetic education - Certification I have seen patient Gian Watkins II on 03/21/18. My clinical findings support the need for the requested home health care services because: Medication compliance is questionable I certify that my clinical findings support that this patient is homebound because: Unsafe to leave home unassisted (1) DKA, type 1 Qualifiers: Diabetes mellitus complication detail: without coma Qualified Code(s): E10.10 - Type 1 diabetes mellitus with ketoacidosis without coma
--- NOTE | 2018-03-21 12:14 | P.PNNP ---
Subjective Interval history: No acute events overnight. Blood sugar on lower side this morning but overall stable. Hemodialysis yesterday tolerated well. <Jazlyn De Anda - Last Filed: 03/21/18 12:07> Physical Exam Vital signs: Vital Signs 03/20/18 12:15 03/20/18 12:30 03/20/18 13:00 Temperature Pulse Rate 87 87 86 Respiratory Rate Blood Pressure 155/82 H 150/85 H 139/80 Pulse Oximetry 96 95 94 L 03/20/18 14:00 03/20/18 15:00 03/20/18 15:24 Temperature 98.8 F Pulse Rate 85 88 90 Respiratory Rate Blood Pressure 138/82 Pulse Oximetry 95 95 03/20/18 16:00 03/20/18 17:00 03/20/18 18:00 Temperature Pulse Rate 90 88 93 H Respiratory Rate Blood Pressure 142/88 H 161/81 H Pulse Oximetry 96 96 94 L 03/20/18 18:01 03/20/18 19:00 03/20/18 20:00 Temperature 97.7 F Pulse Rate 91 H 92 H 92 H Respiratory Rate 16 Blood Pressure 130/73 120/70 134/86 Pulse Oximetry 97 97 97 03/20/18 21:00 03/20/18 21:15 03/20/18 22:00 Temperature Pulse Rate 86 89 Respiratory Rate Blood Pressure 138/86 131/79 Pulse Oximetry 97 98 95 03/20/18 23:00 03/21/18 00:00 03/21/18 01:00 Temperature 98.7 F Pulse Rate 86 90 87 Respiratory Rate 14 Blood Pressure 133/82 115/74 139/80 Pulse Oximetry 95 96 97 03/21/18 02:00 03/21/18 03:00 03/21/18 04:00 Temperature 98.8 F Pulse Rate 82 81 80 Respiratory Rate 14 16 Blood Pressure 105/58 L 135/82 122/75 Pulse Oximetry 93 L 94 L 95 03/21/18 05:00 03/21/18 06:00 03/21/18 06:22 Temperature Pulse Rate 81 86 Respiratory Rate 14 20 14 Blood Pressure 144/75 H 157/93 H Pulse Oximetry 94 L 96 03/21/18 06:23 03/21/18 07:00 03/21/18 08:00 Temperature 98 F Pulse Rate 82 83 Respiratory Rate 18 Blood Pressure 137/72 136/71 Pulse Oximetry 94 L 94 L 03/21/18 09:00 03/21/18 10:00 03/21/18 11:00 Temperature 97.9 F Pulse Rate 89 92 H 86 Respiratory Rate 20 Blood Pressure 168/94 H 130/72 128/76 Pulse Oximetry 95 96 93 L Intake & Output 03/20/18 03/21/18 03/21/18 18:59 06:59 18:59 Intake Total 2820 / 2820 300 / 300 Output Total 2900 / 2900 1200 / 1200 Balance -80 / -80 -900 / -900 Weight 82.5 kg Intake: IV 2100 / 2100 D5W/Normal Saline Inj 1,000 ML 1999 @ 200 mls/hr IV.CONT .Q5H JORDAN Rx#:[id number] NovoLIN R (IV Infusion) 100 100 / 100 UNIT In NS Inj 99 ML @ 7 UNITS/ HR 7 mls/hr IV.CONT TITRATE PRN Rx#:[id number] NS Inj 1,000 ML @ 250 mls/hr IV 0 / 0 .CONT .Q4H JORDAN Rx#:[id number] Oral 720 / 720 300 / 300 Output: Urine 900 / 900 1200 / 1200 Hemodialysis Amount 1999 Narrative: GENERAL: No acute distress. EYES: Pupils equal and round. No scleral icterus. No injection or drainage. NECK: Trachea midline. No JVD. CARDIOVASCULAR: Regular rate and rhythm. No murmur appreciated. Dialysis catheter left chest wall. AVF right lower extremity RESPIRATORY: No accessory muscle use. Clear to auscultation. Breath sounds equal bilaterally. GASTROINTESTINAL: Abdomen soft, non-tender, nondistended. Hepatic and splenic margins not palpable. MUSCULOSKELETAL: No obvious deformities. No clubbing. No cyanosis. Mild Bilateral lower extremity edema. NEUROLOGICAL: Awake and alert. Normal speech. PSYCHIATRIC: Appropriate mood and affect; insight and judgment normal. <Jazlyn De Anda - Last Filed: 03/21/18 12:07> Vital signs: Intake & Output 03/21/18 03/22/18 03/22/18 18:59 06:59 18:59 Intake Total 300 / 300 Output Total 3200 / 3200 Balance -2900 / -2900 Intake: Oral 300 / 300 Output: Urine 1200 / 1200 Hemodialysis Amount 1999 <Isi Tyler - Last Filed: 03/22/18 18:13> Assessment and Plan - Assessment (1) End stage renal disease Code(s): N18.6 - End stage renal disease Status: Acute Plan: Patient has End stage renal disease on HD at [facility] on MWF AVF right lower extremity need more time for maturation. PermCath 02/20 left IJ Continue Epogen with dialysis Continue Calcitrol and phoslo Hemodialysis yesterday as he missed dialysis on Monday with removal of 2 liters of fluid tolerated well. Stress test planned for today, plan for dialysis tomorrow (2) Type 1 diabetes mellitus with hyperglycemia Code(s): E10.65 - Type 1 diabetes mellitus with hyperglycemia Status: Acute Plan: Blood sugars improving Maintain blood sugars between 140 mg/dl to 180 mg/dl ( (3) Hypertension Code(s): I10 - Essential (primary) hypertension Status: Acute Plan: Stable, amlodipine and metoprolol resumed. (4) Anemia Code(s): D64.9 - Anemia, unspecified Status: Chronic Plan: HGB stable, Epogen with dialysis <Jazlyn De Anda - Last Filed: 03/21/18 12:07> - Assessment (1) End stage renal disease Code(s): N18.6 - End stage renal disease Status: Acute (2) Type 1 diabetes mellitus with hyperglycemia Code(s): E10.65 - Type 1 diabetes mellitus with hyperglycemia Status: Acute (3) Hypertension Code(s): I10 - Essential (primary) hypertension Status: Acute (4) Anemia Code(s): D64.9 - Anemia, unspecified Status: Chronic - Attending Attestation Patient seen and examined; records reviewed; agree with the plan and recommendations of the DIRECTOR ASSET <Isi Tyler S - Last Filed: 03/22/18 18:13>
[2018-03-21] MEDS ORDERED: Regadenoson Inj 0.4 MG/5 ML Syringe IV.PUSH ONE (14:40)
--- NOTE | 2018-03-21 16:28 | NM ---
EXAM DATE: 03/21/2018 3:42 PM EDT AGE/SEX: 37 years / Male INDICATIONS:Coronary atherosclerosis. . Hypotension. CLINICAL DATA: This is the patient's initial encounter. Patient reports that signs and symptoms have been present for 1 day and indicates a pain score of 0/10. MEDICAL/SURGICAL HISTORY: Diabetes mellitus type II. Hypertension. Deep venous thrombosis. . Right foot. COMPARISON: No prior exams available for comparison. DOSE: 8.8 mCi Tc 99m Myoview at rest 25.4 mCi [id number] at stress 0.4 mg Lexiscan STRESS SYMPTOMS: Dyspnea. EJECTION FRACTION: 54 % TECHNIQUE: The patient underwent pharmacologic stress with infusion of prescribed dose. Continuous ECG tracing was monitored during stress. Gated SPECT imaging was performed after stress and conventi onal SPECT imaging was performed at rest. The examination was performed on a SPECT/CT scanner, both attenuation and non-corrected datasets were reviewed. FINDINGS: Distribution: The maximum perfused segment at stress is in the posterior basal wall. Perfusion Study: Mildly diminished apical perfusion. No redistribution. Gated Study: There are intact wall motion and wall thickening without hypokinetic or dyskinetic segm ents. The ejection fraction is calculated at 54%. RISK CATEGORY: Low (<1% Annual Motality Rate) CONCLUSION: Small area of mildly diminished apical perfusion. No evidence of ischemia. Electronically signed by: Jad Sanchez MD 03/21/2018 4:27 PM EDT
--- NOTE | 2018-03-21 16:58 | ECHRPT ---
Indication: CORONARY ATHEROSCLEROSIS CONCLUSIONS The left ventricular systolic function is normal with an estimated ejection fraction in the range of 60-65%. Normal left ventricular size. Wall thickness is normal. No regional wall motion abnormalities are present. Trace mitral valve regurgitation. There is mild tricuspid valve regurgitation. The estimated pulmonary arterial pressure is 53 mmHg. BP: / HR: Rhythm: Sinus MEASUREMENTS (Male / Female) Normal Values Technical Quality:Good 2D ECHO LV Diastolic Diameter PLAX 5.6 cm 4.2 - 5.9 / 3.9 - 5.3 cm LV Systolic Diameter PLAX 3.8 cm IVS Diastolic Thickness 0.8 cm 0.6 - 1.0 / 0.6 - 0.9 cm LVPW Diastolic Thickness 0.8 cm 0.6 - 1.0 / 0.6 - 0.9 cm LV Relative Wall Thickness 0.3 RV Internal Dim ED PLAX 2.9 cm LVOT Diameter 1.9 cm LA Systolic Diameter LX 4.0 cm 3.0 - 4.0 / 2.7 - 3.8 cm LV Ejection Fraction MOD 4C 61.5 % LV Ejection Fraction 4C AL 64.9 % M-MODE Aortic Root Diameter MM 2.5 cm LA Systolic Diameter MM 4.0 cm LA Ao Ratio MM 1.6 AV Cusp Separation MM 2.2 cm DOPPLER AV Peak Velocity 137.0 cm/s AV Peak Gradient 7.5 mmHg LVOT Peak Velocity 107.0 cm/s LVOT Peak Gradient 4.6 mmHg AV Area Cont Eq pk 2.2 cm MV Area PHT 5.2 cm Mitral E Point Velocity 113.0 cm/s Mitral A Point Velocity 104.0 cm/s Mitral E to A Ratio 1.1 LV E' Lateral Velocity 10.9 cm/s Mitral E to LV E' Lateral Ratio 10.4 LV E' Septal Velocity 6.6 cm/s Mitral E to LV E' Septal Ratio 17.0 TR Peak Velocity 328.0 cm/s TR Peak Gradient 43.0 mmHg Right Atrial Pressure 10.0 mmHg Pulmonary Artery Systolic Pressu 53.0 mmHg Right Ventricular Systolic Press 53.0 mmHg PV Peak Velocity 105.0 cm/s PV Peak Gradient 4.4 mmHg FINDINGS LEFT VENTRICLE The left ventricular systolic function is normal with an estimated ejection fraction in the range of 60-65%. Normal left ventricular size. Wall thickness is normal. No regional wall motion abnormalities are present. RIGHT VENTRICLE Normal right ventricular size and systolic function. LEFT ATRIUM The left atrial size is upper normal. RIGHT ATRIUM The right atrial size is normal. ATRIAL SEPTUM Normal atrial septal thickness without atrial level shunting by limited color doppler interrogation. AORTA The aortic root and proximal ascending aorta are normal in size on limited imaging. MITRAL VALVE Structurally normal mitral valve. Trace mitral valve regurgitation. AORTIC VALVE Trileaflet aortic valve. No aortic valve stenosis or regurgitation. TRICUSPID VALVE Structurally normal tricuspid valve. There is mild tricuspid valve regurgitation. The estimated pulmonary arterial pressure is 53 mmHg. PULMONARY VALVE No pulmonary valve regurgitation or stenosis. VESSELS The inferior vena cava is normal in size. PERICARDIUM No pericardial effusion. Tommie Long MD (Electronically Signed) Final Date:21 March 2018 16:57
--- NOTE | 2018-03-21 17:07 | P.DS ---
Date of admission: 03/19/18 19:08 Primary care physician: Brittany Lovelace Brief History from admission: This is a 37-year-old male. Date of admission 03/19/2018. Past medical history includes end-stage renal disease/chronic kidney disease for currently receiving hemodialysis 3 times a left Vas-Cath through the left tunneled IJ catheter, IDDM with diabetic nephrosclerosis and neuropathy on insulin pump, hypertension, history of DVT on apixaban, depression and recent diagnosis of C. difficile.. He originally presented to the emergency department with hypotension. He was in a dialysis center [place] [facility] when and his blood pressure was 70/30 with a temperature 100.3. He did not receive hemodialysis today. Accu-Chek was 522. He states that his insulin pump is not working. Complaining of nausea/vomiting. Denies chest pain abdominal pain or shortness of breath currently. Patient was noted to have an elevated acetone will follow her 0.22. Blood sugar in the 500s. Patient received 1 L normal saline bolus with resolution of hypertension. Insulin pump is been removed and is currently on insulin drip at 7 units an hour. Looks medically stable. DS: Diagnosis - Discharge Diagnosis (1) DKA, type 1 Status: Acute (2) Chronic kidney disease, stage 4, severely decreased GFR Status: Acute DS: Summary Hospital Course: Patient was admitted, started on DKA protocol. Eventually his anion gap was closed and was tolerating p.o. intake well. His insulin pump and restarted. He had mildly elevated troponins, underwent nuclear stress test per cardiology' s recommendation was cleared for discharge with unremarkable results. He also completed his vancomycin course for his previous recent bout of C. difficile diarrhea. Patient has met maximal benefit from hospitalization and is clinically stable for discharge. - Time Spent with Patient Total time spent providing and/or coordinating discharge services: Less than 30 minutes - Quality: VTE Deep Vein Thrombosis/Pulmonary Embolism Present on Admission: No Exam Vital signs: Vital Signs 03/20/18 18:00 03/20/18 18:01 03/20/18 19:00 Temperature Pulse Rate 93 H 91 H 92 H Respiratory Rate Blood Pressure 130/73 120/70 Pulse Oximetry 94 L 97 97 03/20/18 20:00 03/20/18 21:00 03/20/18 21:15 Temperature 97.7 F Pulse Rate 92 H 86 Respiratory Rate 16 Blood Pressure 134/86 138/86 Pulse Oximetry 97 97 98 03/20/18 22:00 03/20/18 23:00 03/21/18 00:00 Temperature 98.7 F Pulse Rate 89 86 90 Respiratory Rate 14 Blood Pressure 131/79 133/82 115/74 Pulse Oximetry 95 95 96 03/21/18 01:00 03/21/18 02:00 03/21/18 03:00 Temperature Pulse Rate 87 82 81 Respiratory Rate 14 Blood Pressure 139/80 105/58 L 135/82 Pulse Oximetry 97 93 L 94 L 03/21/18 04:00 03/21/18 05:00 03/21/18 06:00 Temperature 98.8 F Pulse Rate 80 81 86 Respiratory Rate 16 14 20 Blood Pressure 122/75 144/75 H 157/93 H Pulse Oximetry 95 94 L 96 03/21/18 06:22 03/21/18 06:23 03/21/18 07:00 Temperature Pulse Rate 82 Respiratory Rate 14 18 Blood Pressure 137/72 Pulse Oximetry 94 L 03/21/18 08:00 03/21/18 09:00 03/21/18 10:00 Temperature 98 F 97.9 F Pulse Rate 83 89 92 H Respiratory Rate 20 Blood Pressure 136/71 168/94 H 130/72 Pulse Oximetry 94 L 95 96 03/21/18 11:00 03/21/18 12:00 03/21/18 13:00 Temperature Pulse Rate 86 88 82 Respiratory Rate Blood Pressure 128/76 135/77 Pulse Oximetry 93 L 88 L 94 L 03/21/18 15:00 Temperature Pulse Rate 80 Respiratory Rate Blood Pressure 140/76 Pulse Oximetry Intake & Output 03/20/18 03/21/18 03/21/18 18:59 06:59 18:59 Intake Total 2820 / 2820 300 / 300 Output Total 2900 / 2900 1200 / 1200 Balance -80 / -80 -900 / -900 Weight 82.5 kg Intake: IV 2099 / 2099 D5W/Normal Saline Inj 1,000 ML 2000 / 1999 @ 200 mls/hr IV.CONT .Q5H JORDAN Rx#:[id number] NovoLIN R (IV Infusion) 100 100 / 100 UNIT In NS Inj 99 ML @ 7 UNITS/ HR 7 mls/hr IV.CONT TITRATE PRN Rx#:[id number] NS Inj 1,000 ML @ 250 mls/hr IV 0 / 0 .CONT .Q4H JORDAN Rx#:[id number] Oral 720 / 720 300 / 300 Output: Urine 900 / 900 1200 / 1200 Hemodialysis Amount 1999 Narrative: Clear lungs bilaterally, unlabored breathing Heart sounds regular rate rhythm, no murmurs alert and oriented Results Procedures completed during hospitalization: . Labs on day of discharge: Labs from last 24 hours 03/21/18 03/21/18 03/21/18 12:12 09:43 08:44 Sodium Potassium Chloride Carbon Dioxide Anion Gap BUN Creatinine Estimated GFR POC Glucose 225 H 142 H 64 L Random Glucose Calcium Phosphorus Magnesium Beta-Hydroxybutyric Acd 03/21/18 03/20/18 03/20/18 08:19 20:32 18:32 Sodium 143 Potassium 3.6 Chloride 106 Carbon Dioxide 24.6 Anion Gap 12 BUN 28 H Creatinine 4.52 H Estimated GFR 15 L POC Glucose 58 L 234 H Random Glucose 234 H Calcium 7.7 L Phosphorus 3.7 Magnesium 2.0 Beta-Hydroxybutyric Acd 0.24 03/20/18 17:10 Sodium Potassium Chloride Carbon Dioxide Anion Gap BUN Creatinine Estimated GFR POC Glucose 277 H Random Glucose Calcium Phosphorus Magnesium Beta-Hydroxybutyric Acd Preliminary micro results at discharge 03/19/18 16:10 Aerobic Blood Culture - Preliminary Blood - Peripheral No growth in 2 days Anaerobic Blood Culture - Preliminary No growth in 2 days 03/19/18 16:15 Aerobic Blood Culture - Preliminary Blood - Peripheral No growth in 2 days Anaerobic Blood Culture - Preliminary No growth in 2 days - Impressions ITS Impressions Chest X-Ray 03/19/18 15:57 CONCLUSION: 1. Minimal cardiomegaly. 2. No focal infiltrate or pulmonary vascular congestion. Myocardial Perfusion Scan Nuc Med 03/21/18 00:00 CONCLUSION: Small area of mildly diminished apical perfusion. No evidence of ischemia. Discharge Plan - Discharge Disposition Patient Disposition: /Home Health Service - Discharge Condition Condition: Critical - Discharge Order Discharge Orders: Discharge Order (Routine); Ordered 03/21/18 Ordered By: Vicente Rojas - Physicians Team Primary Care Provider: Brittany Lovelace Attending Provider: Vicente Rojas Other Providers: [employer],Insurance ; Isi Tyler MD ; Antonio Pablo DO
--- NOTE | 2018-03-21 23:06 | P.PNCA ---
Subjective Interval history: No events overnight Physical Exam Vital signs: Vital Signs 03/21/18 00:00 03/21/18 01:00 03/21/18 02:00 Temperature 98.7 F Pulse Rate 90 87 82 Respiratory Rate 14 Blood Pressure 115/74 139/80 105/58 L Pulse Oximetry 96 97 93 L 03/21/18 03:00 03/21/18 04:00 03/21/18 05:00 Temperature 98.8 F Pulse Rate 81 80 81 Respiratory Rate 14 16 14 Blood Pressure 135/82 122/75 144/75 H Pulse Oximetry 94 L 95 94 L 03/21/18 06:00 03/21/18 06:22 03/21/18 06:23 Temperature Pulse Rate 86 Respiratory Rate 20 14 18 Blood Pressure 157/93 H Pulse Oximetry 96 03/21/18 07:00 03/21/18 08:00 03/21/18 09:00 Temperature 98 F 97.9 F Pulse Rate 82 83 89 Respiratory Rate 20 Blood Pressure 137/72 136/71 168/94 H Pulse Oximetry 94 L 94 L 95 03/21/18 10:00 03/21/18 11:00 03/21/18 12:00 Temperature Pulse Rate 92 H 86 88 Respiratory Rate Blood Pressure 130/72 128/76 135/77 Pulse Oximetry 96 93 L 88 L 03/21/18 13:00 03/21/18 15:00 03/21/18 17:00 Temperature Pulse Rate 82 80 86 Respiratory Rate Blood Pressure 140/76 140/70 Pulse Oximetry 94 L 98 03/21/18 18:00 Temperature 98.9 F Pulse Rate 76 Respiratory Rate Blood Pressure 138/76 Pulse Oximetry Intake & Output 03/21/18 03/21/18 03/22/18 06:59 18:59 06:59 Intake Total 300 / 300 300 / 300 Output Total 1200 / 1200 3200 / 3200 Balance -900 / -900 -2900 / -2900 Weight 82.5 kg Intake: Oral 300 / 300 300 / 300 Output: Urine 1200 / 1200 1200 / 1200 Hemodialysis Amount 1999 Narrative: GENERAL: No acute distress. EYES: Pupils equal and round. No scleral icterus. No injection or drainage. NECK: Trachea midline. No JVD. CARDIOVASCULAR: Regular rate and rhythm. No murmur appreciated. Dialysis catheter left chest wall. AVF right lower extremity RESPIRATORY: No accessory muscle use. Clear to auscultation. Breath sounds equal bilaterally. GASTROINTESTINAL: Abdomen soft, non-tender, nondistended. Hepatic and splenic margins not palpable. MUSCULOSKELETAL: No obvious deformities. No clubbing. No cyanosis. Mild Bilateral lower extremity edema. NEUROLOGICAL: Awake and alert. Normal speech. PSYCHIATRIC: Appropriate mood and affect; insight and judgment normal. Assessment and Plan - Assessment (1) Elevated troponin Code(s): R74.8 - Abnormal levels of other serum enzymes Status: Acute (2) DKA, type 1 Code(s): E10.10 - Type 1 diabetes mellitus with ketoacidosis without coma Status: Acute (3) Diabetic peripheral neuropathy Code(s): E11.42 - Type 2 diabetes mellitus with diabetic polyneuropathy Status : Acute (4) End stage renal disease Code(s): N18.6 - End stage renal disease Status: Acute (5) Hypertension Code(s): I10 - Essential (primary) hypertension Status: Acute (6) End stage renal disease on dialysis Code(s): N18.6 - End stage renal disease; Z99.2 - Dependence on renal dialysis Status: Chronic - Plan 1) DKA Per primary team 2) EF 60-65% 3) Elevated trop Type 2 due to DKA/Hypotension Nuclear stress test showing no ischemia 4) Cardiovascularly stable for discharge (2) DKA, type 1 Qualifiers: Diabetes mellitus complication detail: without coma Qualified Code(s): E10.10 - Type 1 diabetes mellitus with ketoacidosis without coma
== END 2018-03-21 19:40 | disposition home health service (06) ==
LOC: NEPC 15:37 → NEDA 19:08 → HIMC 22:10
PROVIDERS: ADMIT Hospitalist; ATTEND Hospitalist

== ENCOUNTER 2018-04-03 15:10 | Observation (INO) ==
[2018-04-03] MEDS ORDERED: Sod Chloride 0.9% Inj 1,000 ML IV.SIG ONE (15:23)
[2018-04-03 15:39] LABS: VBG Base Excess -2.4 mmol/L (-2-2); VBG Blood Gas Oxygen Content 13.1 Vol % (9.0-17.0); VBG PCO2 64 mmHG (44-48); VBG PH 7.21 (7.360-7.400); VBG PO2 67 mmHG (35-40)
[2018-04-03 15:58] LABS: Baso # (Auto) 0.1 th/mm3 (0.0-0.2); Baso % (Auto) 0.8 % (0.0-2.0); Eos # (Auto) 0.2 th/mm3 (0.0-0.4); Eos % (Auto) 2.1 % (0.0-4.0); Hematocrit 33.5 % (39.0-51.0); Hemoglobin 10.7 gm/dL (13.0-17.0); Lymph # (Auto) 1.5 th/mm3 (1.0-4.8); Lymph % (Auto) 18.2 % (9.0-44.0); Mean Corpuscular HGB Conc 31.9 % (32.0-36.0); Mean Corpuscular Hemoglobin 27.5 pg (27.0-34.0); Mean Corpuscular Volume 86.3 fL (80.0-100.0); Mean Platelet Volume 9.4 fL (7.0-11.0); Mono # (Auto) 0.6 th/mm3 (0.0-0.9); Mono % (Auto) 6.9 % (0.0-8.0); Neut # (Auto) 5.9 th/mm3 (1.8-7.7); Platelet Count 187 th/mm3 (150-450); Red Blood Count 3.89 mil/mm3 (4.50-5.90); Red Cell Distribution Width 15.4 % (11.6-17.2); White Blood Count 8.2 th/mm3 (4.0-11.0)
[2018-04-03] MEDS ORDERED: Naloxone Inj 0.4 MG/ML Vial IV.PUSH ONE (16:08)
--- NOTE | 2018-04-03 16:28 | XR ---
EXAM DATE: 04/03/2018 4:24 PM EDT AGE/SEX: 37 years / Male INDICATIONS: Chest pain. CLINICAL DATA: This is the patient's initial encounter. Patient reports that signs and symptoms have been present for 1 day and indicates a pain score of 2/10. MEDICAL/SURGICAL HISTORY: . Hypertension. Diabetes mellitus type II . . Dialysis catheter plac ement. COMPARISON: [facility] [place] CHEST 1V SINGLE AP, 03/19/2018. . FINDINGS: Dialysis catheter again seen. There is no consolidation or effusion. Cardiac silhouette unremarkable. Osseous structures are intact. CONCLUSION: Negative examination. Electronically signed by: Heladio Phipps MD 04/03/2018 4:26 PM EDT
[2018-04-03 16:51] LABS: ABG Base Excess -2.7 mmol/L (-2-2); ABG PCO2 45 mmHg (38-42); ABG PO2 133 mmHg (61-120)
[2018-04-03 16:56] LABS: Albumin 2.6 g/dL (3.4-5.0); Beta Hydroxybutyric Acid 0.41 mmol/L (0.00-0.39); Calcium 7.2 mg/dL (8.5-10.1); Carbon Dioxide 24.5 meq/L (21.0-32.0); Potassium 3.7 meq/L (3.5-5.1)
--- NOTE | 2018-04-03 17:14 | ED ---
HPI General Chief complaint: Nausea/Vomiting/Diarrhea Stated complaint: Poss High BP Time Seen by Provider: 04/03/18 15:23 Source: patient Mode of arrival: ambulatory Limitations: no limitations History of Present Illness HPI Narrative: 37-year-old male the presents to the ED for evaluation of nausea vomiting, possible DKA. Patient apparently was seen the primary care office where he was about to be seen for the first time. Apparently patient was found to be in the toilet throwing up and somewhat altered. EVAC was called. Patient has a history of CKD on dialysis Wednesdays and Fridays. Per EVAC there were concerned for DKA. Patient was given 500 bolus of fluid. Per EVAC patient became more altered. He is arousable but he is very lethargic. He has been here multiple times for DKA in the past. He denies any chest pain or shortness of breath. No abdominal pain. Patient does appear to be throwing up. Patient was given Zofran for the nausea. History is slightly limited because patient does appear to be somewhat altered. Answer some basic questions. He follows with [facility] for the dialysis. Currently cannot really tell me if he has any pain. No chest pain or shortness of breath. Other medical issues. He does have a fistula that appears to be working on his right arm. He also has a port on his left chest. Related Data Home Medications Medication Instructions Recorded Confirmed apixaban [Eliquis] 5 mg PO BID 01/26/18 04/03/18 aspirin 81 mg PO DAILY 01/26/18 04/03/18 ergocalciferol (vitamin D2) 50,000 unit PO QWEEK 03/19/18 04/03/18 [Vitamin D2] multivitamin 1 tab PO DAILY 03/19/18 04/03/18 pregabalin [Lyrica] 150 mg PO BID 03/19/18 04/03/18 insulin lispro [Humalog U-100 See Protocol SUB-Q TID 04/03/18 04/03/18 Insulin] nifedipine 90 mg PO DAILY 04/03/18 04/03/18 potassium chloride 10 meq PO BID 04/03/18 04/03/18 pregabalin [Lyrica] 100 mg PO BID 04/03/18 04/03/18 propranolol 60 mg PO BID 04/03/18 04/03/18 sertraline 100 mg PO DAILY 04/03/18 04/03/18 topiramate 50 mg PO BID 04/03/18 04/03/18 Previous Rx's Medication Instructions Recorded amlodipine [Norvasc] 10 mg PO DAILY 30 Days #60 tab 03/12/18 calcitriol [Rocaltrol] 0.25 mcg PO DAILY 30 Days #30 cap 03/12/18 furosemide 40 mg PO DAILY 30 Days #30 tab 03/12/18 hydralazine 100 mg PO TID 30 Days #90 tab 03/12/18 metoprolol tartrate 25 mg PO BID 30 Days #60 tab 03/12/18 calcium acetate 1,334 mg PO TID 30 Days #180 cap 03/16/18 Allergies Allergy/AdvReac Type Severity Reaction Status Date / Time amoxicillin Allergy Severe Rash Verified 02/05/18 08:56 broccoli Allergy Severe ANAPHYLAXIS Verified 02/05/18 08:56 mushroom Allergy Severe ANAPHYLAXIS Verified 02/05/18 08:56 penicillin G Allergy Severe Hives Verified 02/05/18 08:56 Review of Systems ROS: all other systems reviewed are negative [facility] Medical History Medical History AVF (arteriovenous fistula) (Acute) Anxiety (Acute) CKD (chronic kidney disease) stage 5, GFR less than 15 ml/min (Acute) DVT (deep venous thrombosis) (Acute) Depression (Acute) Diabetes (Acute) Diabetic retinopathy (Acute) Diabetic ulcer of heel (Acute) Hypertension (Acute) Neuropathy (Acute) Surgical History Surgical History Status post right foot surgery (Acute) Family History Family History Other Family history unknown Social History Social History Substance History: No History of Abuse Second Hand Smoke Exposure: No Smoking Status: Former smoker Tobacco Type: Cigarettes How Often Do You Have a Drink Containing Alcohol: Never Hx Recent Travel: No Recent Travel in [facility] within the Last 8 Weeks: No Recent Out of Country Travel within the Last 8 Weeks: No Immunization History Tetanus Immunization: >5 Years Hx Influenza Vaccine This Season: Yes Exam Narrative Exam Narrative: GENERAL: Somnolent SKIN: Focused skin assessment warm/dry. has a working fistula on the right arm. port on the left chest. HEAD: Atraumatic. Normocephalic. EYES: Pupils equal and round. No scleral icterus. No injection or drainage. ENT: No nasal bleeding or discharge. Mucous membranes pink and moist. Tongue is midline. No uvula deviation. NECK: Trachea midline. No JVD. CARDIOVASCULAR: Regular rate and rhythm. No murmur appreciated. RESPIRATORY: No accessory muscle use. Clear to auscultation. Breath sounds equal bilaterally. GASTROINTESTINAL: Abdomen soft, non-tender, nondistended. Hepatic and splenic margins not palpable. MUSCULOSKELETAL: No obvious deformities. No clubbing. No cyanosis. No edema. Full range of motion of the upper and lower extremities bilaterally. 2+ pulses bilaterally. NEUROLOGICAL: Somnolent but arousable. No obvious cranial nerve deficits. Motor grossly within normal limits. Normal speech. PSYCHIATRIC: Appropriate mood and affect; insight and judgment normal. Course Initial Documented Vital Signs Temperature 97.8 F 04/03/18 15:20 Pulse Rate 89 04/03/18 15:20 Respiratory Rate 20 04/03/18 15:20 Blood Pressure 192/100 H 04/03/18 15:20 Pulse Oximetry 98 04/03/18 15:20 Last Documented Vital Signs Temperature 97.7 F 04/03/18 16:30 Pulse Rate 89 04/03/18 16:30 Respiratory Rate 18 04/03/18 16:30 Blood Pressure 200/100 H 04/03/18 16:30 Pulse Oximetry 100 04/03/18 16:30 Medical Decision Making TED Attestation TED supervised visit: Yes Attestation: The history, exam, and medical decision-making in the associated mid-level provider note were completed with my assistance. I reviewed and agree with the findings presented. I attest that I had a [id number]-[id number] encounter with the patient on the same day, and personally performed and documented my assessment and findings in the medical record. *My assessment and Findings: 37-year-old man, end-stage renal disease, frequent DKA, here with altered mental status, sent from a doctor's office where he was throwing up and altered. On exam, he sedated, he has miotic pupils. He is prescribed tramadol. His initial blood gas shows acidosis with a strong respiratory acidosis component with a minimally elevated base deficit. Suggestive of respiratory acidosis from opioids. Responded well to Narcan. Still hyperglycemic with some mild acidosis. I do not think this is DKA at this point but could be early. An insulin pump. Is unclear why he has persistent trouble with decay. 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 Will admit him for observation, likely discharge. [facility] Narrative Medical decision making narrative: 37-year-old male the presents to the ED for evaluation of possible DKA. Patient was properly examined and was found to have signs and symptoms consistent appears to be possible DKA with altered mental status. Labs and imaging order. Initial blood gas did show acidosis. Patient was given 1 L of fluids. My attending Dr. Garcia evaluate the patient and recommends Narcan as well. Narcan given and patient did became more responsive. More awake. Recheck a blood gas did show improvement of the acidosis. Labs and imaging showed hyperglycemia otherwise unremarkable. Case discussed with my attending Dr. Garcia have a liver the patient. Recommends admission for altered mental status possible from opiate overdose. Patient denies completely taken any more of his medications or trying to hurt himself. Patient was admitted for this. Patient was given Tylenol for his pain. Patient will be have to be monitored for his blood sugar. DR Irizarry agrees with admission. Medical Screen Exam Complete: Yes Emergency Medical Condition: Yes Differential Diagnosis Differential Diagnosis: DKA versus acidosis versus overdose versus dehydration versus altered mental status versus nausea and vomit Medical Records Medical records reviewed: Yes I reviewed the patient's medical records. Lab Data Lab results reviewed: Yes I reviewed the patient's lab results. Result diagrams: 04/03/18 15:36 04/03/18 15:36 Lab Results 04/03/18 04/03/18 04/03/18 Range/Units 15:20 15:35 15:36 WBC 8.2 (4.0-11.0) th/mm3 RBC 3.89 L (4.50-5.90) mil/mm3 Hgb 10.7 L (13.0-17.0) gm/dL Hct 33.5 L (39.0-51.0) % MCV 86.3 (80.0-100.0) fL MCH 27.5 (27.0-34.0) pg MCHC 31.9 L (32.0-36.0) % RDW 15.4 (11.6-17.2) % Plt Count 187 (150-450) th/mm3 MPV 9.4 (7.0-11.0) fL Neut % (Auto) 72.0 H (16.0-70.0) % Lymph % (Auto) 18.2 (9.0-44.0) % [place] % (Auto) 6.9 (0.0-8.0) % Eos % (Auto) 2.1 (0.0-4.0) % Baso % (Auto) 0.8 (0.0-2.0) % Neut # (Auto) 5.9 (1.8-7.7) th/mm3 Lymph # (Auto) 1.5 (1.0-4.8) th/mm3 [place] # (Auto) 0.6 (0.0-0.9) th/mm3 Eos # (Auto) 0.2 (0.0-0.4) th/mm3 Baso # (Auto) 0.1 (0.0-0.2) th/mm3 WBC Differential . Differential Comment Auto diff final Puncture Site Nurse Patient Temperature 98.6 O2 Saturation (90-100) % ABG pH (7.380-7.420) ABG pCO2 (38-42) mmHg ABG pO2 (61-120) mmHg ABG HCO3 (22-26) mmol/L ABG O2 Content (12.0-20.0) Vol % ABG Base Excess (-2-2) mmol/L ABG Methemoglobin (0-2) % Zain Test VBG pH 7.21 L* (7.360-7.400) VBG pCO2 64 H* (44-48) mmHG VBG pO2 67 H (35-40) mmHG VBG HCO3 25 (22-26) mmol/L VBG O2 Saturation 88 H (70-76) % VBG O2 Content 13.1 (9.0-17.0) Vol % VBG Base Excess -2.4 L (-2-2) mmol/L VBG Carboxyhemoglobin 1.5 (0-4) % VBG Methemoglobin 0.8 (0-2) % Hemoglobin 10.5 L (12.0-16.0) G/DL Carboxyhemoglobin (0-4) % O2 Delivery Device Nasal cannula Liter Flow 2.00 L/M Critical Value Yes Sodium (136-145) meq/L Potassium (3.5-5.1) meq/L Chloride (98-107) meq/L Carbon Dioxide (21.0-32.0) meq/L Anion Gap (5-15) meq/L BUN (7-18) mg/dL Creatinine (0.60-1.30) mg/dL Estimated GFR (>89) mL/min POC Glucose 510 H* (68-110) mg/dl Random Glucose (74-106) mg/dL Calcium (8.5-10.1) mg/dL Prot Corrected Calcium (8.5-10.1) mg/dL Magnesium (1.5-2.5) mg/dL Total Bilirubin (0.2-1.0) mg/dL AST (15-37) U/L ALT (12-78) U/L Alkaline Phosphatase (45-117) U/L Total Protein (6.4-8.2) g/dL Albumin (3.4-5.0) g/dL Beta-Hydroxybutyric Acd (0.00-0.39) mmol/L 04/03/18 04/03/18 04/03/18 Range/Units 15:36 16:36 18:20 WBC (4.0-11.0) th/mm3 RBC (4.50-5.90) mil/mm3 Hgb (13.0-17.0) gm/dL Hct (39.0-51.0) % MCV (80.0-100.0) fL MCH (27.0-34.0) pg MCHC (32.0-36.0) % RDW (11.6-17.2) % Plt Count (150-450) th/mm3 MPV (7.0-11.0) fL Neut % (Auto) (16.0-70.0) % Lymph % (Auto) (9.0-44.0) % [place] % (Auto) (0.0-8.0) % Eos % (Auto) (0.0-4.0) % Baso % (Auto) (0.0-2.0) % Neut # (Auto) (1.8-7.7) th/mm3 Lymph # (Auto) (1.0-4.8) th/mm3 [place] # (Auto) (0.0-0.9) th/mm3 Eos # (Auto) (0.0-0.4) th/mm3 Baso # (Auto) (0.0-0.2) th/mm3 WBC Differential Differential Comment Puncture Site Left radial Patient Temperature 98.6 O2 Saturation 97 (90-100) % ABG pH 7.32 L (7.380-7.420) ABG pCO2 45 H (38-42) mmHg ABG pO2 133 H (61-120) mmHg ABG HCO3 23 (22-26) mmol/L ABG O2 Content 13.3 (12.0-20.0) Vol % ABG Base Excess -2.7 L (-2-2) mmol/L ABG Methemoglobin 0.7 (0-2) % Zain Test Present VBG pH (7.360-7.400) VBG pCO2 (44-48) mmHG VBG pO2 (35-40) mmHG VBG HCO3 (22-26) mmol/L VBG O2 Saturation (70-76) % VBG O2 Content (9.0-17.0) Vol % VBG Base Excess (-2-2) mmol/L VBG Carboxyhemoglobin (0-4) % VBG Methemoglobin (0-2) % Hemoglobin 9.7 L (12.0-16.0) G/DL Carboxyhemoglobin 1.6 (0-4) % O2 Delivery Device Nasal cannula Liter Flow 2.00 L/M Critical Value No Sodium 139 (136-145) meq/L Potassium 3.7 (3.5-5.1) meq/L Chloride 103 (98-107) meq/L Carbon Dioxide 24.5 (21.0-32.0) meq/L Anion Gap 12 (5-15) meq/L BUN 30 H (7-18) mg/dL Creatinine 3.99 H (0.60-1.30) mg/dL Estimated GFR 17 L (>89) mL/min POC Glucose 407 H (68-110) mg/dl Random Glucose 520 H* (74-106) mg/dL Calcium 7.2 L* (8.5-10.1) mg/dL Prot Corrected Calcium 7.8 L (8.5-10.1) mg/dL Magnesium 2.0 (1.5-2.5) mg/dL Total Bilirubin 0.3 (0.2-1.0) mg/dL AST 12 L (15-37) U/L ALT 14 (12-78) U/L Alkaline Phosphatase 172 H (45-117) U/L Total Protein 6.0 L (6.4-8.2) g/dL Albumin 2.6 L (3.4-5.0) g/dL Beta-Hydroxybutyric Acd 0.41 H (0.00-0.39) mmol/L Imaging Data Attestation: I personally reviewed and interpreted this imaging study as follows : Radiologist's impression: Chest X-Ray 04/03/18 15:23 CONCLUSION: Negative examination. Discharge Plan Discharge Disposition Patient Disposition: 30 Still Patient Discharge Details Diagnosis: Altered mental status, Acute hyperglycemia Physicians Team ED Provider: Olu Garcia ED Midlevel Provider: Logan Brown Primary Care Provider: Brittany Lovelace Attending Provider: Marilyn Irizarry ED Status: Admitted Observation Patient
[2018-04-03] MEDS ORDERED: Metoprolol Tartrate 25 MG Tablet PO ONE (17:54)
[2018-04-03] MEDS ORDERED: Acetaminophen 325 MG Tablet PO ONE (18:15)
[2018-04-03] MEDS ORDERED: Acetaminophen 325 MG Tablet PO PRN (19:07)
[2018-04-03] MEDS ORDERED: Bisacodyl 10 MG Supp RECTAL PRN (19:07)
[2018-04-03] MEDS ORDERED: Labetalol HCl Inj 100 MG/20 ML Vial IV.PUSH ONE (21:00)
[2018-04-03] MEDS ORDERED: Metoprolol Tartrate 25 MG Tablet PO SCH (21:00)
[2018-04-03 21:09] LABS: Bilirubin,Urine Negative (Negative); Clarity,Urine Clear (Clear); Color,Urine Straw (Yellw/Straw); Glucose,Urine (UA) 500 or Greater mg/dL (Negative); Hyaline Casts,Urine 4 /lpf (0-3); Leukocyte Esterase,Urine Negative (Negative); Mucus,Urine Few /lpf (Occasional); Nitrite,Urine Negative (Negative); Specific Gravity,Urine 1.011 (1.002-1.035)
[2018-04-03] MEDS: Insulin NovoLOG Aspart Correctional Sugar Inj SQ SCH (21:42)
[2018-04-03] MEDS: Senna/Docusate Sodium 8.6/50 MG Tablet PO SCH (21:43)
[2018-04-03] MEDS: Topiramate 25 MG Tablet PO SCH (21:43)
--- NOTE | 2018-04-03 22:47 | P.HPIM ---
History of Present Illness Service: [facility] Primary Care Physician: Brittany Lovelace Chief Complaint: AMS History of Present Illness: 37-year-old male with a history of ESRD on hemodialysis, diabetes, migraines, depression, dvt and hypertension was brought to the ED by ambulance after having altered mental status at his primary care physician's office. Patient apparently appeared altered and EVAC thought that it was possibly due to DKA. Patient states he does not remember much besides going to the appointment and then waking up here in the ER. Upon examination patient appears back to baseline oriented times he states when he gets migraines he tends to throw up and he states today he did have a migraine. He denies any chest pain, shortness of breath, fevers or chills. He states his nausea has gone away but he still has somewhat of a headache. 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 He states he is compliant with all his medications and his dialysis appointments. Review of Systems All other systems reviewed negative except as stated in HPI PMFSH - History History Provided By: Patient - Medical History Medical History: Medical History (Last Reviewed 04/03/18 @ 22:45 by ROBBY Powers) Anxiety CKD (chronic kidney disease) stage 5, GFR less than 15 ml/min DVT (deep venous thrombosis) Depression Diabetes Diabetic retinopathy Diabetic ulcer of heel Hypertension Neuropathy - Surgical History Surgical History: Surgical History (Last Reviewed 04/03/18 @ 22:45 by ROBBY Powers) AVF (arteriovenous fistula) Status post right foot surgery - Family History Family History: Family History (Last Reviewed 04/03/18 @ 22:45 by ROBBY Powers) Other Family history unknown - Social History I have reviewed the patient's Social History: Yes - Tobacco History Second Hand Smoke Exposure: No Tobacco Use In Past 30 Days: No Smoking Status: Former smoker Tobacco Type: Cigarettes - Alcohol History How Often Do You Have a Drink Containing Alcohol: Never - Substance Use History Substance History: No History of Abuse - Travel History History of Recent Travel: No Recent Travel in the [place] Within the Last 8 Weeks: No Recent Travel Out of the Country Within the Last 8 Weeks: No - Immunization History Tetanus Immunization: >5 Years Hx Influenza Vaccine This Season: Yes Medications and Allergies Active Medications: Active Medications Acetaminophen (Tylenol) 650 mg PO Q4H PRN PRN Reason: Temp > 100.4 Al Hydroxide/Mg Hydroxide (Milk Of Magnesia Liq) 30 ml PO Q12H PRN PRN Reason: Mild Constipation Amlodipine Besylate (Norvasc) 10 mg PO DAILY [facility] Apixaban (Eliquis) 5 mg PO BID [facility] Last Admin: 04/03/18 21:42 Dose: 5 mg Aspirin (Aspirin Chew) 81 mg PO DAILY [facility] Bisacodyl (Dulcolax Supp) 10 mg RECTAL DAILY PRN PRN Reason: SEVERE CONSITIPATION Calcitriol (Rocaltrol) 0.25 mcg PO DAILY [facility] Calcium Acetate (Phoslo) 1,334 mg PO TID [facility] Ergocalciferol (Vitamin D2) 50,000 unit PO Q7D [facility] Furosemide (Lasix) 40 mg PO DAILY [facility] Hydralazine HCl (Apresoline) 100 mg PO TID [facility] Insulin Aspart (Novolog Insulin Correctional Sugar Inj) 0 unit SQ ACHS [facility]; Protocol Last Admin: 04/03/18 21:42 Dose: 7 unit Lactulose (Lactulose Liq) 30 ml PO DAILY PRN PRN Reason: SEVERE CONSITIPATION Metoprolol Tartrate (Lopressor) 25 mg PO BID [facility] Last Admin: 04/03/18 21:42 Dose: 25 mg Nifedipine (Procardia Xl) 90 mg PO DAILY [facility] Ondansetron HCl (Zofran Inj) 4 mg IV.PUSH Q6H PRN PRN Reason: NAUSEA OR VOMITING Senna/Docusate Sodium (Margarita-Colace) 1 tab PO BID [facility] Last Admin: 04/03/18 21:43 Dose: 1 tab Sennosides (Senokot) 17.2 mg PO Q12H PRN PRN Reason: Moderate Constipation Sertraline HCl (Zoloft) 100 mg PO DAILY [facility] Topiramate (Topamax) 50 mg PO BID [facility] Last Admin: 04/03/18 21:43 Dose: 50 mg Allergies Allergy/AdvReac Type Severity Reaction Status Date / Time amoxicillin Allergy Severe Rash Verified 02/05/18 08:56 broccoli Allergy Severe ANAPHYLAXIS Verified 02/05/18 08:56 mushroom Allergy Severe ANAPHYLAXIS Verified 02/05/18 08:56 penicillin G Allergy Severe Hives Verified 02/05/18 08:56 Home Medications Medication Instructions Recorded Confirmed Type apixaban [Eliquis] 5 mg PO BID 01/26/18 04/03/18 History aspirin 81 mg PO DAILY 01/26/18 04/03/18 History ergocalciferol (vitamin D2) 50,000 unit PO QWEEK 03/19/18 04/03/18 History [Vitamin D2] multivitamin 1 tab PO DAILY 03/19/18 04/03/18 History pregabalin [Lyrica] 150 mg PO BID 03/19/18 04/03/18 History insulin lispro [Humalog U-100 See Protocol SUB-Q TID 04/03/18 04/03/18 History Insulin] nifedipine 90 mg PO DAILY 04/03/18 04/03/18 History potassium chloride 10 meq PO BID 04/03/18 04/03/18 History pregabalin [Lyrica] 100 mg PO BID 04/03/18 04/03/18 History propranolol 60 mg PO BID 04/03/18 04/03/18 History sertraline 100 mg PO DAILY 04/03/18 04/03/18 History topiramate 50 mg PO BID 04/03/18 04/03/18 History Exam Vital signs: Vital Signs 04/03/18 15:20 04/03/18 15:23 04/03/18 16:30 Temperature 97.8 F 97.7 F Pulse Rate 89 92 H 89 Respiratory Rate 20 18 Blood Pressure 192/100 H 200/100 H Pulse Oximetry 98 98 100 04/03/18 19:06 04/03/18 19:54 04/03/18 20:42 Temperature Pulse Rate 89 89 Respiratory Rate 13 15 Blood Pressure 180/96 H 178/92 H Pulse Oximetry 100 100 100 04/03/18 20:53 04/03/18 22:11 Temperature 98.3 F Pulse Rate 90 88 Respiratory Rate 18 21 Blood Pressure 156/92 H 158/85 H Pulse Oximetry 98 97 Intake & Output 04/03/18 04/03/18 04/04/18 06:59 18:59 06:59 Intake Total 1000 / 1000 Balance 1000 / 1000 Weight 170 kg Intake: IV 1000 / 1000 NS Inj 1,000 ML @ Wide Open IV. 1000 / 1000 SIG BOLUS ONE Rx#:[id number] Other: Date of Last Bowel Movement 04/02/18 Narrative: GENERAL: This is a well-nourished, well-developed patient, in no apparent distress. SKIN: Warm, dry, intact, no ecchymosis or open lesions, Permacath to left chest EYES: Pupils equal round and reactive, no scleral edema or drainage CARDIOVASCULAR: Regular rate and rhythm without murmurs, gallops, or rubs. RESPIRATORY: Clear to auscultation. Breath sounds equal bilaterally. No wheezes , rales, or rhonchi. GASTROINTESTINAL: Abdomen soft, non-tender, nondistended. Normal active bowel sounds MUSCULOSKELETAL: Extremities without clubbing, cyanosis, or edema. NEURO: Alert & Oriented x4 to person, place, time, situation. Moves all ext x4 Results - Labs CBC & Chem 7: 04/03/18 15:36 04/03/18 15:36 Labs: Short CBC 04/03/18 Range/Units 15:36 WBC 8.2 (4.0-11.0) th/mm3 Hgb 10.7 L (13.0-17.0) gm/dL Hct 33.5 L (39.0-51.0) % Plt Count 187 (150-450) th/mm3 BMP 04/03/18 15:36 Sodium 139 Potassium 3.7 Chloride 103 Carbon Dioxide 24.5 BUN 30 H Creatinine 3.99 H Calcium 7.2 L* Liver Function 04/03/18 Range/Units 15:36 Total Bilirubin 0.3 (0.2-1.0) mg/dL AST 12 L (15-37) U/L ALT 14 (12-78) U/L Alkaline Phosphatase 172 H (45-117) U/L Albumin 2.6 L (3.4-5.0) g/dL Urine 04/03/18 Range/Units 20:44 Urine Color Straw (Yellw/Straw) Urine Clarity Clear (Clear) Urine pH 7.0 (5.0-8.5) Ur Specific [place] 1.011 (1.002-1.035) Urine Protein 500 or greater (Neg-Trace) mg/dL Urine Glucose (UA) 500 or greater (Negative) mg/dL - Imaging Impressions Chest X-Ray 04/03/18 15:23 CONCLUSION: Negative examination. Caprini VTE Risk Assessment Caprini VTE Risk Assessment: Moderate/High Risk (score >= 2) Caprini Risk Assessment Model: Point Value = 1 Point Value = 2 Point Value = 3 Point Value = 5 Age 41-60 Minor surgery BMI > 25 kg/m2 Swollen legs Varicose veins or History of unexplained or recurrent spontaneous Oral contraceptives or hormone replacement Sepsis (< 1 month) Serious lung disease, including pneumonia (< 1 month) Abnormal pulmonary function Acute myocardial infarction Congestive heart failure (< 1 month) History of inflammatory bowel disease Medical patient at bed rest Age 61-74 Arthroscopic surgery Major open surgery (> 45 min) Laparoscopic surgery (> 45 min) Malignancy Confined to bed (> 72 hours) Immobilizing plaster cast Central venous access Age >= 75 History of VTE Family history of VTE Factor V Leiden Prothrombin [id number] Lupus anticoagulant Anticardiolipin antibodies Elevated serum homocysteine Heparin-induced thrombocytopenia Other congenital or acquired thrombophilia Stroke (< 1 month) Elective arthroplasty Hip, pelvis, or leg fracture Acute spinal cord injury (< 1 month) Prophylaxis Regimen: Total Risk Factor Score Risk Level Prophylaxis Regimen 0-1 Low Early ambulation 2 Moderate Order ONE of the following: *Sequential Compression Device (SCD) *Heparin 5000 units SQ BID 3-4 Higher Order ONE of the following medications: *Heparin 5000 units SQ TID *Enoxaparin/Lovenox 40 mg SQ daily (WT < 150 kg, CrCl > 30 mL/min) *Enoxaparin/Lovenox 30 mg SQ daily (WT < 150 kg, CrCl > 10-29 mL/min) *Enoxaparin/Lovenox 30 mg SQ BID (WT < 150 kg, CrCl > 30 mL/min) AND/OR *Sequential Compression Device (SCD) 5 or more Highest Order ONE of the following medications: *Heparin 5000 units SQ TID (Preferred with Epidurals) *Enoxaparin/Lovenox 40 mg SQ daily (WT < 150 kg, CrCl > 30 mL/min) *Enoxaparin/Lovenox 30 mg SQ daily (WT < 150 kg, CrCl > 10-29 mL/min) *Enoxaparin/Lovenox 30 mg SQ BID (WT < 150 kg, CrCl > 30 mL/min) AND *Sequential Compression Device (SCD) Assessment and Plan - Plan Encephalopathy, resolved, likely due to hyperglycemia and migraines Blood sugar on admission 510, resolved now to 295 Cont neuro checks Accu checks with SSI, patient has an insulin pump and may bolus self Renal diet ESRD on hemodialysis, creatine at baseline Consult to nephrology for evaluation Avoid nephrotoxins Resume home medications Migraines, chronic Resume home Topiramate HTN, chronic, elevated on admission, currently controlled Patient required labetalol and Apresoline in the ED Resume home medications, monitor vitals DVT prophylaxis: Andreina Discussed Condition With: Patient and rN
[2018-04-04] MEDS ORDERED: Sod Chloride 0.9% Inj 1,000 ML IV.CONT PRN (06:26)
[2018-04-04] MEDS ORDERED: Albumin Human 25% Inj 100 ML IV.SIG PRN (06:26)
[2018-04-04] MEDS ORDERED: Sod Chloride 0.9% Inj 1,000 ML OTHER PRN ×2 (06:26)
[2018-04-04] MEDS ORDERED: Heparin 10,000 UNITS/10 ML Vial (for IV use) OTHER PRN ×2 (06:26)
[2018-04-04] MEDS ORDERED: Acetaminophen 325 MG Tablet PO PRN (06:26)
[2018-04-04] MEDS ORDERED: Gelatin 12 MM/7 MM Topical Foam TOPICAL PRN (06:26)
[2018-04-04 07:25] LABS: Baso # (Auto) 0.1 th/mm3 (0.0-0.2); Baso % (Auto) 0.8 % (0.0-2.0); Eos # (Auto) 0.1 th/mm3 (0.0-0.4); Eos % (Auto) 1.4 % (0.0-4.0); Hematocrit 32.1 % (39.0-51.0); Hemoglobin 10.5 gm/dL (13.0-17.0); Lymph # (Auto) 1.7 th/mm3 (1.0-4.8); Lymph % (Auto) 24.3 % (9.0-44.0); Mean Corpuscular HGB Conc 32.6 % (32.0-36.0); Mean Corpuscular Hemoglobin 27.3 pg (27.0-34.0); Mean Corpuscular Volume 83.8 fL (80.0-100.0); Mean Platelet Volume 9.1 fL (7.0-11.0); Mono # (Auto) 0.4 th/mm3 (0.0-0.9); Mono % (Auto) 5.9 % (0.0-8.0); Neut # (Auto) 4.6 th/mm3 (1.8-7.7); Neut % (Auto) 67.6 % (16.0-70.0); Platelet Count 171 th/mm3 (150-450); Red Blood Count 3.83 mil/mm3 (4.50-5.90); Red Cell Distribution Width 15.5 % (11.6-17.2); White Blood Count 6.8 th/mm3 (4.0-11.0)
[2018-04-04 07:46] LABS: Calcium 7.7 mg/dL (8.5-10.1); Carbon Dioxide 22.3 meq/L (21.0-32.0); Potassium 3.3 meq/L (3.5-5.1)
[2018-04-04] MEDS: Insulin NovoLOG Aspart Correctional Sugar Inj SQ SCH ×2 (08:00→13:00)
[2018-04-04] MEDS ORDERED: Furosemide 40 MG Tablet PO SCH (09:00)
[2018-04-04] MEDS ORDERED: Sertraline 100 MG Tablet PO SCH (09:00)
[2018-04-04] MEDS: Senna/Docusate Sodium 8.6/50 MG Tablet PO SCH (09:00)
[2018-04-04] MEDS ORDERED: amLODIPine 10 MG Tablet PO SCH (09:00)
[2018-04-04] MEDS: Topiramate 25 MG Tablet PO SCH (09:00)
[2018-04-04] MEDS: Calcium Acetate 667 MG Capsule PO SCH ×2 (09:00→13:00)
[2018-04-04] MEDS ORDERED: Calcitriol 0.25 MCG Capsule PO SCH (09:00)
--- NOTE | 2018-04-04 09:11 | P.CONNP ---
<Jazlyn De Anda - Last Filed: 04/04/18 08:57> History of Present Illness Service: Nephrology Consult date: 04/04/18 Requesting Physician: Paulina Cid Reason for Consult: End stage renal disease on hemodialysis Primary Care Provider: Brittany Lovelace Family Provider: Brittany Lovelace Chief Complaint: AMS History of Present Illness: Patient is a 37-year-old male with a history of ESRD on hemodialysis, diabetes, migraines, depression, dvt and hypertension. Presented to emergency department by EVAC after having altered mental status at his primary care physician's office. Nephrology is consulted for end stage renal disease. He has a left IJ permacath and right lower extremity AVF which is not ready for use. His last hemodialysis was Monday. He denies any chest pain, shortness of breath, fevers or chills. He states his nausea has gone away but his headache has returned. Reports increased pain in right shoulder and left foot. Pressure ulcer noted on left heel. [facility] - History History Provided By: Patient - Medical History Medical History: Medical History (Last Reviewed 04/03/18 @ 22:45 by ROBBY Powers) Anxiety CKD (chronic kidney disease) stage 5, GFR less than 15 ml/min DVT (deep venous thrombosis) Depression Diabetes Diabetic retinopathy Diabetic ulcer of heel Hypertension Neuropathy - Surgical History Surgical History: Surgical History (Last Reviewed 04/03/18 @ 22:45 by ROBBY Powers) AVF (arteriovenous fistula) Status post right foot surgery - Family History Family History: Family History (Last Reviewed 04/03/18 @ 22:45 by ROBBY Powers) Other Family history unknown - Tobacco History Second Hand Smoke Exposure: No Tobacco Use In Past 30 Days: No Smoking Status: Never smoker Tobacco Type: Cigarettes - Alcohol History How Often Do You Have a Drink Containing Alcohol: Monthly or less - Substance Use History Substance History: No History of Abuse - Travel History History of Recent Travel: No Recent Travel in the [place] Within the Last 8 Weeks: No Recent Travel Out of the Country Within the Last 8 Weeks: No - Immunization History Tetanus Immunization: >5 Years Hx Influenza Vaccine This Season: Yes Medications and Allergies Allergies Allergy/AdvReac Type Severity Reaction Status Date / Time amoxicillin Allergy Severe Rash Verified 04/06/18 15:04 broccoli Allergy Severe ANAPHYLAXIS Verified 04/06/18 15:04 mushroom Allergy Severe ANAPHYLAXIS Verified 04/06/18 15:04 penicillin G Allergy Severe Hives Verified 04/06/18 15:04 Home Medications Medication Instructions Recorded Confirmed Type apixaban [Eliquis] 5 mg PO BID 01/26/18 04/07/18 History aspirin 81 mg PO DAILY 01/26/18 04/07/18 History ergocalciferol (vitamin D2) 50,000 unit PO QWEEK 03/19/18 04/07/18 History [Vitamin D2] multivitamin 1 tab PO DAILY 03/19/18 04/07/18 History pregabalin [Lyrica] 100 mg PO BID 03/19/18 04/07/18 History insulin lispro [Humalog U-100 See Protocol SUB-Q TID 04/03/18 04/07/18 History Insulin] potassium chloride 10 meq PO BID 04/03/18 04/07/18 History sertraline 100 mg PO DAILY 04/03/18 04/07/18 History topiramate 50 mg PO BID 04/03/18 04/07/18 History alprazolam [Xanax] 0.25 mg PO BID PRN 04/07/18 04/07/18 History amlodipine 10 mg PO DAILY 04/07/18 04/07/18 History metoprolol tartrate 25 mg PO BID 04/07/18 04/07/18 History tramadol 50 mg PO Q6H PRN 04/07/18 04/07/18 History Active Medications: Active Medications Acetaminophen (Tylenol) 650 mg PO Q4H PRN PRN Reason: Temp > 100.4 Last Admin: 04/04/18 05:12 Dose: 650 mg Acetaminophen (Tylenol) 650 mg PO UNSCH PRN PRN Reason: SEE LABEL COMMENTS Al Hydroxide/Mg Hydroxide (Milk Of Magnkatherin Liq) 30 ml PO Q12H PRN PRN Reason: Mild Constipation Amlodipine Besylate (Norvasc) 10 mg PO DAILY JORDAN Apixaban (Eliquis) 5 mg PO BID [facility] Last Admin: 04/03/18 21:42 Dose: 5 mg Aspirin (Aspirin Chew) 81 mg PO DAILY JORDAN Bisacodyl (Dulcolax Supp) 10 mg RECTAL DAILY PRN PRN Reason: SEVERE CONSITIPATION Calcitriol (Rocaltrol) 0.25 mcg PO DAILY JORDAN Calcium Acetate (Phoslo) 1,334 mg PO TID JORDAN Clonidine HCl (Catapres) 0.1 mg PO UNSCH PRN PRN Reason: SEE LABEL COMMENTS Diphenhydramine HCl (Benadryl) 25 mg PO UNSCH PRN PRN Reason: SEE LABEL COMMENTS Epoetin Pipo (Epogen Inj) 10,000 unit IV.PUSH UNSCH PRN PRN Reason: SEE LABEL COMMENTS Ergocalciferol (Vitamin D2) 50,000 unit PO Q7D JORDAN Furosemide (Lasix) 40 mg PO DAILY JORDAN Gelatin (Gelfoam 12 Mm/7 Mm Topical) 1 foam TOPICAL PRN PRN PRN Reason: help stop bleeding from site Gentamicin Sulfate (Gentamicin Inj) 20 mg OTHER WITH DIALYSIS PRN PRN Reason: Dwell Gentamycin Lock Heparin Sodium (Porcine) (Heparin Inj) 8,000 units OTHER WITH DIALYSIS PRN PRN Reason: for machine prime Heparin Sodium (Porcine) (Heparin Inj) 1,000 units OTHER WITH DIALYSIS PRN PRN Reason: Dwell Heparin to Fill Catheter Hydralazine HCl (Apresoline) 100 mg PO TID JORDAN Sodium Chloride (Ns Inj) 1,000 mls @ 0 mls/hr OTHER .Q0M PRN PRN Reason: for prime and rinse back Sodium Chloride (Ns Inj) 1,000 mls @ 200 mls/hr OTHER .Q5H PRN PRN Reason: for dialyzer flush PRN Sodium Chloride (Ns Inj) 1,000 mls @ 0 mls/hr IV.CONT .Q0M PRN PRN Reason: hypotension / volume replace Albumin Human (Flexbumin 25% Inj) 100 mls @ 60 mls/hr IV.SIG WITH DIALYSIS PRN PRN Reason: hypotension / volume replace Insulin Aspart (Novolog Insulin Correctional Sugar Inj) 0 unit SQ ACHS JORDAN; Protocol Last Admin: 04/03/18 21:42 Dose: 7 unit Lactulose (Lactulose Liq) 30 ml PO DAILY PRN PRN Reason: SEVERE CONSITIPATION Mannitol (Mannitol Inj) 12.5 gm IV.PUSH UNSCH PRN PRN Reason: hypotension / volume replace Metoprolol Tartrate (Lopressor) 25 mg PO BID [facility] Last Admin: 04/03/18 21:42 Dose: 25 mg Multivitamins (Theragran) 1 tab PO DAILY JORDAN Nifedipine (Procardia Xl) 90 mg PO DAILY [facility] Nitroglycerin (Nitrostat Sl) 0.4 mg SL Q5M PRN PRN Reason: CHEST PAIN Ondansetron HCl (Zofran Inj) 4 mg IV.PUSH Q6H PRN PRN Reason: NAUSEA OR VOMITING Ondansetron HCl (Zofran Inj) 4 mg IV.PUSH UNSCH PRN PRN Reason: NAUSEA OR VOMITING Potassium Chloride (Klor-Con 10) 10 meq PO BID [facility] Pregabalin (Lyrica) 100 mg PO BID [facility] Propranolol HCl (Inderal) 60 mg PO BID [facility] Senna/Docusate Sodium (Margarita-Colace) 1 tab PO BID [facility] Last Admin: 04/03/18 21:43 Dose: 1 tab Sennosides (Senokot) 17.2 mg PO Q12H PRN PRN Reason: Moderate Constipation Sertraline HCl (Zoloft) 100 mg PO DAILY [facility] Sodium Chloride (Ns Flush) 5 ml IV.FLUSH PRN PRN PRN Reason: flush each lumen during HD Topiramate (Topamax) 50 mg PO BID [facility] Last Admin: 04/03/18 21:43 Dose: 50 mg Exam Vital signs: Vital Signs 04/03/18 15:20 04/03/18 15:23 04/03/18 16:30 Temperature 97.8 F 97.7 F Pulse Rate 89 92 H 89 Respiratory Rate 20 18 Blood Pressure 192/100 H 200/100 H Pulse Oximetry 98 98 100 04/03/18 19:06 04/03/18 19:54 04/03/18 20:42 Temperature Pulse Rate 89 89 Respiratory Rate 13 15 Blood Pressure 180/96 H 178/92 H Pulse Oximetry 100 100 100 04/03/18 20:53 04/03/18 22:11 04/04/18 00:00 Temperature 98.3 F 98.6 F Pulse Rate 90 88 88 Respiratory Rate 18 21 18 Blood Pressure 156/92 H 158/85 H 180/96 H Pulse Oximetry 98 97 98 04/04/18 04:00 Temperature 98.2 F Pulse Rate 84 Respiratory Rate 20 Blood Pressure 184/101 H Pulse Oximetry 97 Intake & Output 04/03/18 04/04/18 04/04/18 18:59 06:59 18:59 Intake Total 1000 / 1000 Balance 1000 / 1000 Weight 170 kg 170 kg Intake: IV 1000 / 1000 NS Inj 1,000 ML @ Wide Open IV. 1000 / 1000 SIG BOLUS ONE Rx#:[id number] Other: Date of Last Bowel Movement 04/02/18 Weight On Admission 170 kg Narrative: GENERAL: This is a well-nourished, well-developed patient, in no apparent distress. SKIN: Warm, dry, intact, no ecchymosis or open lesions, Permacath to left chest EYES: Pupils equal round and reactive, no scleral edema or drainage CARDIOVASCULAR: Regular rate and rhythm without murmurs, gallops, or rubs. right lower extremity AVF RESPIRATORY: Clear to auscultation. Breath sounds equal bilaterally. No wheezes , rales, or rhonchi. GASTROINTESTINAL: Abdomen soft, non-tender, nondistended. Normal active bowel sounds MUSCULOSKELETAL: Extremities without clubbing, cyanosis. Mild lower extremity edema NEURO: Alert & Oriented x4 to person, place, time, situation. Moves all ext x4 Results - Lab Results 04/04/18 06:38 04/04/18 06:38 Most recent lab results ABG pH 7.32 (7.380-7.420) L 04/03/18 16:36 ABG pCO2 45 mmHg (38-42) H 04/03/18 16:36 ABG pO2 133 mmHg (61-120) H 04/03/18 16:36 ABG HCO3 23 mmol/L (22-26) 04/03/18 16:36 Calcium 7.7 mg/dL (8.5-10.1) L 04/04/18 06:38 Magnesium 2.0 mg/dL (1.5-2.5) 04/03/18 15:36 Assessment and Plan - Assessment (1) End stage renal disease Code(s): N18.6 - End stage renal disease Status: Acute Plan: Patient has End stage renal disease on HD at [facility] on MWF AVF right lower extremity need more time for maturation. PermaCath left IJ Continue Epogen with dialysis Continue Calcitrol and phoslo Hemodialysis planned for today. (2) Type 1 diabetes mellitus with hyperglycemia Code(s): E10.65 - Type 1 diabetes mellitus with hyperglycemia Status: Acute Plan: Maintain blood sugars between 140 mg/dl to 180 mg/dl as tolerated (3) Altered mental status Code(s): R41.82 - Altered mental status, unspecified Status: Acute Plan: Resolved (4) Hypertension Code(s): I10 - Essential (primary) hypertension Status: Chronic Plan: Hypertensive, expect improvement after dialysis Will adjust hypertensive medication. <Bay Gifford - Last Filed: 04/12/18 09:44> History of Present Illness Primary Care Provider: Brittany Lovelace Family Provider: Brittany Lovelace [facility] - Medical History Medical History: Medical History (Last Reviewed 04/03/18 @ 22:45 by ROBBY Powers) Anxiety CKD (chronic kidney disease) stage 5, GFR less than 15 ml/min DVT (deep venous thrombosis) Depression Diabetes Diabetic retinopathy Diabetic ulcer of heel Hypertension Neuropathy - Surgical History Surgical History: Surgical History (Last Reviewed 04/03/18 @ 22:45 by ROBBY Powers) AVF (arteriovenous fistula) Status post right foot surgery - Family History Family History: Family History (Last Reviewed 04/03/18 @ 22:45 by ROBBY Powers) Other Family history unknown Results - Lab Results 04/04/18 06:38 04/04/18 06:38 Most recent lab results ABG pH 7.32 (7.380-7.420) L 04/03/18 16:36 ABG pCO2 45 mmHg (38-42) H 04/03/18 16:36 ABG pO2 133 mmHg (61-120) H 04/03/18 16:36 ABG HCO3 23 mmol/L (22-26) 04/03/18 16:36 Calcium 7.7 mg/dL (8.5-10.1) L 04/04/18 06:38 Magnesium 2.0 mg/dL (1.5-2.5) 04/03/18 15:36 Assessment and Plan - Assessment (1) End stage renal disease Code(s): N18.6 - End stage renal disease Status: Acute Plan: Patient seen and examined during HD, agree with above. Remove fluid as tolerated, follow the BP. (2) Type 1 diabetes mellitus with hyperglycemia Code(s): E10.65 - Type 1 diabetes mellitus with hyperglycemia Status: Acute (3) Altered mental status Code(s): R41.82 - Altered mental status, unspecified Status: Acute (4) Hypertension Code(s): I10 - Essential (primary) hypertension Status: Chronic <Jazlyn De Anda - Last Filed: 04/04/18 08:57> (3) Altered mental status Qualifiers: Altered mental status type: unspecified Qualified Code(s): R41.82 - Altered mental status, unspecified <Stephanie Gifford Q - Last Filed: 04/12/18 09:44> (3) Altered mental status Qualifiers: Altered mental status type: unspecified Qualified Code(s): R41.82 - Altered mental status, unspecified
--- NOTE | 2018-04-04 11:53 | ECG ---
Date Performed: 04/03/2018 Time Performed: 15:43:10 PTAGE: 37 years EKG: SINUS TACHYCARDIA POSSIBLE LEFT ATRIAL ENLARGEMENT ABNORMAL RHYTHM ECG PREVIOUS TRACING : 03/19/2018 15.47 DOCTOR: Olu Ace Interpretating Date/Time 04/04/2018 11:50:12
--- NOTE | 2018-04-04 13:26 | P.PN ---
Subjective Interval history: Nursing denies any deterioration since last night. Patient himself has no new complaints. Discussed case with nephrology, there is a concern of the patient may be mismanaging his home medications since he was allegedly taking 2 sets of beta-blockers and 2 sets of calcium channel blockers. Physical Exam Vital signs: Vital Signs 04/03/18 15:20 04/03/18 15:23 04/03/18 16:30 Temperature 97.8 F 97.7 F Pulse Rate 89 92 H 89 Respiratory Rate 20 18 Blood Pressure 192/100 H 200/100 H Pulse Oximetry 98 98 100 04/03/18 19:06 04/03/18 19:54 04/03/18 20:42 Temperature Pulse Rate 89 89 Respiratory Rate 13 15 Blood Pressure 180/96 H 178/92 H Pulse Oximetry 100 100 100 04/03/18 20:53 04/03/18 22:11 04/04/18 00:00 Temperature 98.3 F 98.6 F Pulse Rate 90 88 88 Respiratory Rate 18 21 18 Blood Pressure 156/92 H 158/85 H 180/96 H Pulse Oximetry 98 97 98 04/04/18 04:00 04/04/18 08:00 Temperature 98.2 F 98.8 F Pulse Rate 84 82 Respiratory Rate 20 18 Blood Pressure 184/101 H 178/99 H Pulse Oximetry 97 97 Intake & Output 04/03/18 04/04/18 04/04/18 18:59 06:59 18:59 Intake Total 1000 / 1000 Output Total 3000 / 3000 Balance 1000 / 1000 -3000 / -3000 Weight 170 kg 170 kg Intake: IV 1000 / 1000 NS Inj 1,000 ML @ Wide Open IV. 1000 / 1000 SIG BOLUS ONE Rx#:[id number] Output: Hemodialysis Amount 3000 / 3000 Other: Date of Last Bowel Movement 04/02/18 04/02/18 Weight On Admission 170 kg Narrative: Heart sounds regular rhythm, no murmurs Clear lungs bilaterally, unlabored breathing Alert and oriented 3, intact insight to hospitalization Results - Labs CBC & Chem 7: 04/04/18 06:38 04/04/18 06:38 Laboratory Results - last 24 hr 04/03/18 04/03/18 04/03/18 15:20 15:35 15:36 WBC 8.2 RBC 3.89 L Hgb 10.7 L Hct 33.5 L MCV 86.3 MCH 27.5 MCHC 31.9 L RDW 15.4 Plt Count 187 MPV 9.4 Neut % (Auto) 72.0 H Lymph % (Auto) 18.2 [place] % (Auto) 6.9 Eos % (Auto) 2.1 Baso % (Auto) 0.8 Neut # (Auto) 5.9 Lymph # (Auto) 1.5 [place] # (Auto) 0.6 Eos # (Auto) 0.2 Baso # (Auto) 0.1 WBC Differential . Differential Comment Auto diff final Puncture Site Nurse Patient Temperature 98.6 O2 Saturation ABG pH ABG pCO2 ABG pO2 ABG HCO3 ABG O2 Content ABG Base Excess ABG Methemoglobin Zain Test VBG pH 7.21 L* VBG pCO2 64 H* VBG pO2 67 H VBG HCO3 25 VBG O2 Saturation 88 H VBG O2 Content 13.1 VBG Base Excess -2.4 L VBG Carboxyhemoglobin 1.5 VBG Methemoglobin 0.8 Hemoglobin 10.5 L Carboxyhemoglobin O2 Delivery Device Nasal cannula Liter Flow 2.00 Critical Value Yes Sodium Potassium Chloride Carbon Dioxide Anion Gap BUN Creatinine Estimated GFR POC Glucose 510 H* Random Glucose Calcium Prot Corrected Calcium Magnesium Total Bilirubin AST ALT Alkaline Phosphatase Total Protein Albumin Beta-Hydroxybutyric Acd Urine Color Urine Clarity Urine pH Ur Specific [place] Urine Protein Urine Glucose (UA) Urine Ketones Urine Occult Blood Urine Nitrate Urine Bilirubin Urine Urobilinogen Ur Leukocyte Esterase Urine RBC Urine WBC Hyaline Casts Urine Mucus Micro UA Comment Ur Microscopic Review Urine Culture Comments 04/03/18 04/03/18 04/03/18 15:36 16:36 18:20 WBC RBC Hgb Hct MCV MCH MCHC RDW Plt Count MPV Neut % (Auto) Lymph % (Auto) [place] % (Auto) Eos % (Auto) Baso % (Auto) Neut # (Auto) Lymph # (Auto) [place] # (Auto) Eos # (Auto) Baso # (Auto) WBC Differential Differential Comment Puncture Site Left radial Patient Temperature 98.6 O2 Saturation 97 ABG pH 7.32 L ABG pCO2 45 H ABG pO2 133 H ABG HCO3 23 ABG O2 Content 13.3 ABG Base Excess -2.7 L ABG Methemoglobin 0.7 Zain Test Present VBG pH VBG pCO2 VBG pO2 VBG HCO3 VBG O2 Saturation VBG O2 Content VBG Base Excess VBG Carboxyhemoglobin VBG Methemoglobin Hemoglobin 9.7 L Carboxyhemoglobin 1.6 O2 Delivery Device Nasal cannula Liter Flow 2.00 Critical Value No Sodium 139 Potassium 3.7 Chloride 103 Carbon Dioxide 24.5 Anion Gap 12 BUN 30 H Creatinine 3.99 H Estimated GFR 17 L POC Glucose 407 H Random Glucose 520 H* Calcium 7.2 L* Prot Corrected Calcium 7.8 L Magnesium 2.0 Total Bilirubin 0.3 AST 12 L ALT 14 Alkaline Phosphatase 172 H Total Protein 6.0 L Albumin 2.6 L Beta-Hydroxybutyric Acd 0.41 H Urine Color Urine Clarity Urine pH Ur Specific [place] Urine Protein Urine Glucose (UA) Urine Ketones Urine Occult Blood Urine Nitrate Urine Bilirubin Urine Urobilinogen Ur Leukocyte Esterase Urine RBC Urine WBC Hyaline Casts Urine Mucus Micro UA Comment Ur Microscopic Review Urine Culture Comments 04/03/18 04/03/18 04/03/18 20:01 20:44 21:27 WBC RBC Hgb Hct MCV MCH MCHC RDW Plt Count MPV Neut % (Auto) Lymph % (Auto) [place] % (Auto) Eos % (Auto) Baso % (Auto) Neut # (Auto) Lymph # (Auto) [place] # (Auto) Eos # (Auto) Baso # (Auto) WBC Differential Differential Comment Puncture Site Patient Temperature O2 Saturation ABG pH ABG pCO2 ABG pO2 ABG HCO3 ABG O2 Content ABG Base Excess ABG Methemoglobin Zain Test VBG pH VBG pCO2 VBG pO2 VBG HCO3 VBG O2 Saturation VBG O2 Content VBG Base Excess VBG Carboxyhemoglobin VBG Methemoglobin Hemoglobin Carboxyhemoglobin O2 Delivery Device Liter Flow Critical Value Sodium Potassium Chloride Carbon Dioxide Anion Gap BUN Creatinine Estimated GFR POC Glucose 278 H 295 H Random Glucose Calcium Prot Corrected Calcium Magnesium Total Bilirubin AST ALT Alkaline Phosphatase Total Protein Albumin Beta-Hydroxybutyric Acd Urine Color Straw Urine Clarity Clear Urine pH 7.0 Ur Specific [place] 1.011 Urine Protein 500 or greater Urine Glucose (UA) 500 or greater Urine Ketones Negative Urine Occult Blood Negative Urine Nitrate Negative Urine Bilirubin Negative Urine Urobilinogen Less than 2 Ur Leukocyte Esterase Negative Urine RBC 1 Urine WBC 1 Hyaline Casts 4 Urine Mucus Few H Micro UA Comment Culture not ind Ur Microscopic Review Not Reportable Urine Culture Comments Culture not ind 04/04/18 04/04/18 04/04/18 06:38 06:38 07:54 WBC 6.8 RBC 3.83 L Hgb 10.5 L Hct 32.1 L MCV 83.8 MCH 27.3 MCHC 32.6 RDW 15.5 Plt Count 171 MPV 9.1 Neut % (Auto) 67.6 Lymph % (Auto) 24.3 [place] % (Auto) 5.9 Eos % (Auto) 1.4 Baso % (Auto) 0.8 Neut # (Auto) 4.6 Lymph # (Auto) 1.7 [place] # (Auto) 0.4 Eos # (Auto) 0.1 Baso # (Auto) 0.1 WBC Differential . Differential Comment Auto diff final Puncture Site Patient Temperature O2 Saturation ABG pH ABG pCO2 ABG pO2 ABG HCO3 ABG O2 Content ABG Base Excess ABG Methemoglobin Zain Test VBG pH VBG pCO2 VBG pO2 VBG HCO3 VBG O2 Saturation VBG O2 Content VBG Base Excess VBG Carboxyhemoglobin VBG Methemoglobin Hemoglobin Carboxyhemoglobin O2 Delivery Device Liter Flow Critical Value Sodium 144 Potassium 3.3 L Chloride 110 H Carbon Dioxide 22.3 Anion Gap 12 BUN 31 H Creatinine 4.09 H Estimated GFR 17 L POC Glucose 249 H Random Glucose 239 H D Calcium 7.7 L Prot Corrected Calcium Magnesium Total Bilirubin AST ALT Alkaline Phosphatase Total Protein Albumin Beta-Hydroxybutyric Acd Urine Color Urine Clarity Urine pH Ur Specific [place] Urine Protein Urine Glucose (UA) Urine Ketones Urine Occult Blood Urine Nitrate Urine Bilirubin Urine Urobilinogen Ur Leukocyte Esterase Urine RBC Urine WBC Hyaline Casts Urine Mucus Micro UA Comment Ur Microscopic Review Urine Culture Comments 04/04/18 12:14 WBC RBC Hgb Hct MCV MCH MCHC RDW Plt Count MPV Neut % (Auto) Lymph % (Auto) [place] % (Auto) Eos % (Auto) Baso % (Auto) Neut # (Auto) Lymph # (Auto) [place] # (Auto) Eos # (Auto) Baso # (Auto) WBC Differential Differential Comment Puncture Site Patient Temperature O2 Saturation ABG pH ABG pCO2 ABG pO2 ABG HCO3 ABG O2 Content ABG Base Excess ABG Methemoglobin Zain Test VBG pH VBG pCO2 VBG pO2 VBG HCO3 VBG O2 Saturation VBG O2 Content VBG Base Excess VBG Carboxyhemoglobin VBG Methemoglobin Hemoglobin Carboxyhemoglobin O2 Delivery Device Liter Flow Critical Value Sodium Potassium Chloride Carbon Dioxide Anion Gap BUN Creatinine Estimated GFR POC Glucose 154 H Random Glucose Calcium Prot Corrected Calcium Magnesium Total Bilirubin AST ALT Alkaline Phosphatase Total Protein Albumin Beta-Hydroxybutyric Acd Urine Color Urine Clarity Urine pH Ur Specific [place] Urine Protein Urine Glucose (UA) Urine Ketones Urine Occult Blood Urine Nitrate Urine Bilirubin Urine Urobilinogen Ur Leukocyte Esterase Urine RBC Urine WBC Hyaline Casts Urine Mucus Micro UA Comment Ur Microscopic Review Urine Culture Comments - Imaging Impressions Chest X-Ray 04/03/18 15:23 CONCLUSION: Negative examination. Assessment and Plan - Plan Encephalopathy/somnolence Resolved. Blood sugars now more stable. Just finished dialysis session today. Per nephrology's recommendations, we will keep the patient's nifedipine going as well as propranolol, he is to remain off of metoprolol and amlodipine. Patient has met maximal benefit from hospitalization and stable for discharge.
--- NOTE | 2018-04-04 16:05 | P.DCO ---
- Home Health Nursing Order: Medical education, Medication education-adverse effect - Certification I have seen patient Gian Watkins II on 04/04/18. My clinical findings support the need for the requested home health care services because: Medication compliance is questionable I certify that my clinical findings support that this patient is homebound because: Need for psychosocial assistance
== END 2018-04-04 18:23 | disposition home or self-care (01) ==
LOC: NEPE 15:10 → NEDA 15:10 → NEPHCDU 21:20
PROVIDERS: ADMIT Hospitalist; ATTEND Hospitalist
DX: Z79.899 Other long term (current) drug therapy; D63.1 Anemia in chronic kidney disease; R41.82 Altered mental status, unspecified; I12.0 Hypertensive chronic kidney disease with stage 5 chronic kidney disease or end stage renal disease; F32.9 Major depressive disorder, single episode, unspecified; Z79.01 Long term (current) use of anticoagulants; E10.621 Type 1 diabetes mellitus with foot ulcer; Z79.82 Long term (current) use of aspirin; M25.511 Pain in right shoulder; G43.909 Migraine, unspecified, not intractable, without status migrainosus; E10.65 Type 1 diabetes mellitus with hyperglycemia; Z96.41 Presence of insulin pump (external) (internal); L97.429 Non-pressure chronic ulcer of left heel and midfoot with unspecified severity; G93.40 Encephalopathy, unspecified; F41.9 Anxiety disorder, unspecified; N18.6 End stage renal disease; Z87.891 Personal history of nicotine dependence; Z99.2 Dependence on renal dialysis; E10.22 Type 1 diabetes mellitus with diabetic chronic kidney disease

== ENCOUNTER 2018-04-06 14:50 | Inpatient (IN) ==
[2018-04-06] MEDS ORDERED: Labetalol HCl Inj 100 MG/20 ML Vial IV.PUSH ONE (15:10)
[2018-04-06] MEDS ORDERED: Morphine Sulfate Inj 2 MG/ML Vial IV.PUSH ONE (15:10)
--- NOTE | 2018-04-06 15:33 | ED ---
HPI General Chief Complaint: Headache Stated Complaint: Evac/Diabetic Time Seen by Provider: 04/06/18 14:53 Source: patient and EMS Mode of arrival: EMS Limitations: no limitations History of Present Illness HPI Narrative: 37-year-old male complains of headache, photophobia, nausea vomiting. Patient has history of end-stage renal disease on hemodialysis. Patient has dialysis Monday and Monday. 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 Cullen Jimenez. Last dialysis was 2 days ago. Patient was going to dialysis today and started having severe headache with photophobia and nausea vomiting. EMS was called. Patient was brought to ED for evaluation. Patient was supported by EMS to be hypotensive and hypoglycemic. Blood sugar Accu-Chek was reading high. Systolic blood pressure was in 200 range. Patient has history of diabetes and hypertension. Patient also has history of migraine. Patient states that the headache he has today is the same headache he has in the past with migraine. Patient also has history of depression, DVT. Patient has left IJ permacath and right upper extremity AVF. Right upper extremity AVF was reported not ready for use. Patient did not have dialysis today. Patient states that he has been taking medications as directed. Patient states that headache started this morning. Patient states that headache aching headache diffuse over the head. Patient denies any recent head injury. Patient denies any fever chills. Patient was admitted to [facility] 3 days ago and discharged 2 days ago for the same complaint. Patient had dialysis while in the hospital. Blood pressure was under control and blood sugar was under control upon discharge. Patient has an insulin pump. Patient denies any coughing congestion. Patient denies any fever prior to arrival. MD Complaint: headache and "migraine" Onset (ago): hour(s) Onset description: sudden Location: diffuse Severity: similar to previous episodes Severity scale (1-10): 8 Quality: throbbing Relieving factors: nothing Exacerbating factors: none Context: occurred at rest Associated symptoms: nausea, vomiting and photophobia Treatments prior to arrival: none Related Data Home Medications Medication Instructions Recorded Confirmed apixaban [Eliquis] 5 mg PO BID 01/26/18 04/06/18 aspirin 81 mg PO DAILY 01/26/18 04/06/18 ergocalciferol (vitamin D2) 50,000 unit PO QWEEK 03/19/18 04/06/18 [Vitamin D2] multivitamin 1 tab PO DAILY 03/19/18 04/06/18 pregabalin [Lyrica] 150 mg PO BID 03/19/18 04/06/18 insulin lispro [Humalog U-100 See Protocol SUB-Q TID 04/03/18 04/06/18 Insulin] nifedipine 90 mg PO DAILY 04/03/18 04/06/18 potassium chloride 10 meq PO BID 04/03/18 04/06/18 pregabalin [Lyrica] 100 mg PO BID 04/03/18 04/06/18 propranolol 60 mg PO BID 04/03/18 04/06/18 sertraline 100 mg PO DAILY 04/03/18 04/06/18 topiramate 50 mg PO BID 04/03/18 04/06/18 Previous Rx's Medication Instructions Recorded calcitriol [Rocaltrol] 0.25 mcg PO DAILY 30 Days #30 cap 03/12/18 furosemide 40 mg PO DAILY 30 Days #30 tab 03/12/18 hydralazine 100 mg PO TID 30 Days #90 tab 03/12/18 calcium acetate 1,334 mg PO TID 30 Days #180 cap 03/16/18 Allergies Allergy/AdvReac Type Severity Reaction Status Date / Time amoxicillin Allergy Severe Rash Verified 04/06/18 15:04 broccoli Allergy Severe ANAPHYLAXIS Verified 04/06/18 15:04 mushroom Allergy Severe ANAPHYLAXIS Verified 04/06/18 15:04 penicillin G Allergy Severe Hives Verified 04/06/18 15:04 Review of Systems ROS: all other systems reviewed are negative [facility] Medical History Medical History CKD (chronic kidney disease) stage 5, GFR less than 15 ml/min (Acute) Hypertension (Acute) DVT (deep venous thrombosis) (Acute) Diabetic ulcer of heel (Acute) Anxiety (Acute) Diabetic retinopathy (Acute) Depression (Acute) Neuropathy (Acute) Diabetes (Acute) Surgical History Surgical History AVF (arteriovenous fistula) (Acute) Status post right foot surgery (Acute) Family History Family History Other Family history unknown Social History Social History Substance History: No History of Abuse Second Hand Smoke Exposure: No Smoking Status: Never smoker Tobacco Type: Cigarettes How Often Do You Have a Drink Containing Alcohol: Monthly or less Hx Recent Travel: No Recent Travel in [facility] within the Last 8 Weeks: No Recent Out of Country Travel within the Last 8 Weeks: No Immunization History Tetanus Immunization: Unsure Hx Influenza Vaccine This Season: No Exam Narrative Exam Narrative: GENERAL: Well-nourished, well-developed patient. SKIN: Focused skin assessment warm/dry. HEAD: Normocephalic. EYES: No scleral icterus. No injection or drainage. Patient has history of right eye blindness. NECK: Supple, trachea midline. No JVD or lymphadenopathy. No meningismus CARDIOVASCULAR: Regular rate and rhythm without murmurs, gallops, or rubs. RESPIRATORY: Breath sounds equal bilaterally. No accessory muscle use. GASTROINTESTINAL: Abdomen soft, non-tender, nondistended. MUSCULOSKELETAL: No cyanosis, or edema. BACK: Nontender without obvious deformity. No CVA tenderness. Neurologic exam normal. Course Initial Documented Vital Signs Temperature 98.6 F 04/06/18 14:59 Pulse Rate 117 H 04/06/18 14:59 Respiratory Rate 20 04/06/18 14:59 Blood Pressure 225/125 H 04/06/18 14:59 Pulse Oximetry 97 04/06/18 14:59 Last Documented Vital Signs Temperature 98.6 F 04/06/18 14:59 Pulse Rate 113 H 04/06/18 15:10 Respiratory Rate 20 04/06/18 14:59 Blood Pressure 225/125 H 04/06/18 14:59 Pulse Oximetry 94 L 04/06/18 15:10 Medical Decision Making [facility] Narrative Medical decision making narrative: 37-year-old male with headache, photophobia, nausea vomiting, elevated blood pressure and elevated blood sugar. Patient was admitted to [facility] 3 days ago and discharged 2 days ago with the same symptoms. Patient has history of end-stage renal disease on hemodialysis. Last dialysis was 2 days ago. Patient did not receive dialysis today. Novolin R 7 units IV given. Zofran 4 mg IV given. Blood pressure repeated 190/90. I spoke with Dr. Gifford, pattern vault clerk. Patient will be dialyzed today. Will discuss with sprayer insecticide about insulin drip. Patient has a temperature 101.7. Unknown etiology. We will looking for source. Medical Screen Exam Complete: Yes Emergency Medical Condition: Yes Differential Diagnosis Differential Diagnosis: Differential diagnosis including migraine headache, electrolyte imbalance, uncontrolled hypertension, hypertensive urgency, hypertensive crisis, hyperglycemia, DKA. Lab Data Lab results reviewed: Yes I reviewed the patient's lab results. Result diagrams: 04/06/18 15:35 04/06/18 15:35 Lab Results 04/06/18 04/06/18 04/06/18 Range/Units 14:59 15:35 15:35 CBC w Diff Auto diff final WBC 9.1 (4.0-11.0) th/mm3 RBC 4.13 L (4.50-5.90) mil/mm3 Hgb 11.6 L (13.0-17.0) gm/dL Hct 36.3 L (39.0-51.0) % MCV 87.9 D (80.0-100.0) fL MCH 28.0 (27.0-34.0) pg MCHC 31.8 L (32.0-36.0) % RDW 15.9 (11.6-17.2) % Plt Count 222 (150-450) th/mm3 MPV 10.0 (7.0-11.0) fL Neut % (Auto) 88.9 H (16.0-70.0) % Lymph % (Auto) 7.1 L (9.0-44.0) % [place] % (Auto) 3.2 (0.0-8.0) % Eos % (Auto) 0.4 (0.0-4.0) % Baso % (Auto) 0.4 (0.0-2.0) % Neut # (Auto) 8.2 H (1.8-7.7) th/mm3 Lymph # (Auto) 0.6 L (1.0-4.8) th/mm3 [place] # (Auto) 0.3 (0.0-0.9) th/mm3 Eos # (Auto) 0.0 (0.0-0.4) th/mm3 Baso # (Auto) 0.0 (0.0-0.2) th/mm3 WBC Differential . Differential Comment . Puncture Site Patient Temperature VBG pH (7.360-7.400) VBG pCO2 (44-48) mmHG VBG pO2 (35-40) mmHG VBG HCO3 (22-26) mmol/L VBG O2 Saturation (70-76) % VBG O2 Content (9.0-17.0) Vol % VBG Base Excess (-2-2) mmol/L VBG Carboxyhemoglobin (0-4) % VBG Methemoglobin (0-2) % Hemoglobin (12.0-16.0) G/DL O2 Delivery Device Inspired O2 % Critical Value Sodium 123 L* (136-145) meq/L Potassium 4.0 (3.5-5.1) meq/L Chloride 89 L (98-107) meq/L Carbon Dioxide 18.8 L (21.0-32.0) meq/L Anion Gap 15 (5-15) meq/L BUN 41 H (7-18) mg/dL Creatinine 5.30 H (0.60-1.30) mg/dL Estimated GFR 12 L (>89) mL/min POC Glucose Greater than 600 H* (68-110) mg/dl Random Glucose 1294 H* (74-106) mg/dL Calcium 7.7 L (8.5-10.1) mg/dL Total Bilirubin 0.3 (0.2-1.0) mg/dL AST 12 L (15-37) U/L ALT 14 (12-78) U/L Alkaline Phosphatase 256 H (45-117) U/L Total Protein 6.0 L (6.4-8.2) g/dL Albumin 2.9 L (3.4-5.0) g/dL 04/06/18 04/06/18 Range/Units 16:25 16:32 CBC w Diff WBC (4.0-11.0) th/mm3 RBC (4.50-5.90) mil/mm3 Hgb (13.0-17.0) gm/dL Hct (39.0-51.0) % MCV (80.0-100.0) fL MCH (27.0-34.0) pg MCHC (32.0-36.0) % RDW (11.6-17.2) % Plt Count (150-450) th/mm3 MPV (7.0-11.0) fL Neut % (Auto) (16.0-70.0) % Lymph % (Auto) (9.0-44.0) % [place] % (Auto) (0.0-8.0) % Eos % (Auto) (0.0-4.0) % Baso % (Auto) (0.0-2.0) % Neut # (Auto) (1.8-7.7) th/mm3 Lymph # (Auto) (1.0-4.8) th/mm3 [place] # (Auto) (0.0-0.9) th/mm3 Eos # (Auto) (0.0-0.4) th/mm3 Baso # (Auto) (0.0-0.2) th/mm3 WBC Differential Differential Comment Puncture Site Venous Patient Temperature 98.6 VBG pH 7.30 L (7.360-7.400) VBG pCO2 39 L (44-48) mmHG VBG pO2 60 H (35-40) mmHG VBG HCO3 18 L (22-26) mmol/L VBG O2 Saturation 88 H (70-76) % VBG O2 Content 13.3 (9.0-17.0) Vol % VBG Base Excess -7.0 L (-2-2) mmol/L VBG Carboxyhemoglobin 1.7 (0-4) % VBG Methemoglobin 1.6 (0-2) % Hemoglobin 10.8 L (12.0-16.0) G/DL O2 Delivery Device Ra Inspired O2 21 % Critical Value No Sodium (136-145) meq/L Potassium (3.5-5.1) meq/L Chloride (98-107) meq/L Carbon Dioxide (21.0-32.0) meq/L Anion Gap (5-15) meq/L BUN (7-18) mg/dL Creatinine (0.60-1.30) mg/dL Estimated GFR (>89) mL/min POC Glucose Greater than 600 H* (68-110) mg/dl Random Glucose (74-106) mg/dL Calcium (8.5-10.1) mg/dL Total Bilirubin (0.2-1.0) mg/dL AST (15-37) U/L ALT (12-78) U/L Alkaline Phosphatase (45-117) U/L Total Protein (6.4-8.2) g/dL Albumin (3.4-5.0) g/dL Imaging Data Radiologist's impression: Head CT 04/06/18 15:10 CONCLUSION: 1. No evidence of acute intracranial hemorrhage or acute large vessel cortical based infarction. 2. Mild prominence of the ventricles. 3. Coarse calcification of the right globe. The left lens is not visualized. Recommend clinical correlation. . Discharge Plan Discharge Disposition Patient Disposition: 30 Still Patient Discharge Details Diagnosis: DKA, type 1, End stage renal disease on dialysis, Hypertension, uncontrolled, Acute hyponatremia, Fever Physicians Team ED Provider: Kalpesh Dalal Primary Care Provider: Brittany Lovelace Other Providers: Bay Gifford Rxs /Orders / Referrals /Forms Prescriptions: No Action aspirin 81 mg Tablet,Chewable 81 mg PO DAILY RF: 0 apixaban [Eliquis] 5 mg Tablet 5 mg PO BID RF: 0 furosemide 40 mg Tablet 40 mg PO DAILY 30 Days Qty: 30 RF: 0 hydralazine 100 mg Tablet 100 mg PO TID 30 Days Qty: 90 RF: 0 calcitriol [Rocaltrol] 0.25 mcg Capsule 0.25 mcg PO DAILY 30 Days Qty: 30 RF: 0 calcium acetate 667 mg Capsule 1,334 mg PO TID 30 Days Qty: 180 RF: 1 multivitamin Tablet 1 tab PO DAILY RF: 0 ergocalciferol (vitamin D2) [Vitamin D2] 50,000 unit Capsule 50,000 unit PO QWEEK RF: 0 pregabalin [Lyrica] 150 mg Capsule 150 mg PO BID RF: 0 nifedipine 90 mg Tablet Extended Release 90 mg PO DAILY RF: 0 potassium chloride 10 mEq Tablet Extended Release 10 meq PO BID RF: 0 propranolol 60 mg Tablet 60 mg PO BID RF: 0 insulin lispro [Humalog U-100 Insulin] 100 unit/mL Cartridge SUB-Q TID RF: 0 pregabalin [Lyrica] 100 mg Capsule 100 mg PO BID RF: 0 sertraline 100 mg Tablet 100 mg PO DAILY RF: 0 topiramate 50 mg Tablet 50 mg PO BID RF: 0 Status ED Status: With Doctor
[2018-04-06 15:42] LABS: Baso % (Auto) 0.4 % (0.0-2.0); Eos % (Auto) 0.4 % (0.0-4.0); Hematocrit 36.3 % (39.0-51.0); Hemoglobin 11.6 gm/dL (13.0-17.0); Lymph # (Auto) 0.6 th/mm3 (1.0-4.8); Lymph % (Auto) 7.1 % (9.0-44.0); Mean Corpuscular HGB Conc 31.8 % (32.0-36.0); Mean Corpuscular Volume 87.9 fL (80.0-100.0); Mono # (Auto) 0.3 th/mm3 (0.0-0.9); Mono % (Auto) 3.2 % (0.0-8.0); Neut # (Auto) 8.2 th/mm3 (1.8-7.7); Neut % (Auto) 88.9 % (16.0-70.0); Platelet Count 222 th/mm3 (150-450); Red Blood Count 4.13 mil/mm3 (4.50-5.90); Red Cell Distribution Width 15.9 % (11.6-17.2); White Blood Count 9.1 th/mm3 (4.0-11.0)
[2018-04-06 16:06] LABS: Alanine Aminotransferase 14 U/L (12-78); Albumin 2.9 g/dL (3.4-5.0); Alkaline Phosphatase 256 U/L (45-117); Anion Gap 15 meq/L (5-15); Aspartate Aminotransferase 12 U/L (15-37); Blood Urea Nitrogen 41 mg/dL (7-18); Calcium 7.7 mg/dL (8.5-10.1); Carbon Dioxide 18.8 meq/L (21.0-32.0); Chloride 89 meq/L (98-107); Glomerular Filtration Rate 12 mL/min (>89)
[2018-04-06 16:08] LABS: Glucose,Random 1294 mg/dL (74-106); Sodium 123 meq/L (136-145)
--- NOTE | 2018-04-06 16:24 | CT ---
EXAM DATE: 04/06/2018 4:15 PM EDT AGE/SEX: 37 years / Male INDICATIONS: Cephalgia. CLINICAL DATA: This is the patient's initial encounter. Patient reports that signs and symptoms have been present for 1 day and indicates a pain score of 7/10. MEDICAL/SURGICAL HISTORY: Renal failure, chronic. Diabetes. Deep venous thrombosis. Hypertension . None. RADIATION DOSE: 58.64 CTDI (mGy) COMPARISON: No prior exams available for comparison. TECHNIQUE: CT of the head without contrast. Using automated exposure control and adjustment of the mA and/or kV according to patient size, radiation dose was kept as low as reasonably achievable to ob tain optimal diagnostic quality images. DICOM format image data is available electronically for revi ew and comparison. FINDINGS: Cerebrum: The ventricles are mildly prominent. No evidence of midline shift, mass lesion, acute hem orrhage, or acute large vessel cortical based infarction. No extraaxial fluid collections are seen. Posterior Fossa: The cerebellum and brainstem are intact. The 4th ventricle is midline. The cerebe llopontine angle is unremarkable. Extracranial: There is coarse calcification of the right globe. The left lens is not visualized. Skull: The calvaria is intact. No evidence of skull fracture. CONCLUSION: 1. No evidence of acute intracranial hemorrhage or acute large vessel cortical based infarction. 2. Mild prominence of the ventricles. 3. Coarse calcification of the right globe. The left lens is not visualized. Recommend clinical lc elation. . Electronically signed by: Emily Choi MD 04/06/2018 4:23 PM EDT
[2018-04-06 16:27] LABS: VBG Blood Gas Oxygen Content 13.3 Vol % (9.0-17.0); VBG PCO2 39 mmHG (44-48); VBG PO2 60 mmHG (35-40)
[2018-04-06] MEDS ORDERED: Sod Chloride 0.9% Inj 1,000 ML IV.SIG SCH ×2 (16:45→19:30)
[2018-04-06] MEDS ORDERED: Insulin Regular (For Infusion) 100 UNIT in Sodium Chlor 0.9% Inj 99 ML IV.CONT PRN (16:46)
[2018-04-06] MEDS ORDERED: Acetaminophen 325 MG Tablet PO PRN ×2 (16:46→19:23)
[2018-04-06] MEDS ORDERED: Sod Chloride 0.9% Inj 1,000 ML IV.CONT PRN (16:46)
[2018-04-06] MEDS ORDERED: Sod Chloride 0.9% Inj 1,000 ML OTHER PRN (16:46)
[2018-04-06] MEDS ORDERED: Heparin 10,000 UNITS/10 ML Vial (for IV use) OTHER PRN (16:46)
[2018-04-06] MEDS ORDERED: Albumin Human 25% Inj 100 ML IV.SIG PRN (16:46)
[2018-04-06] MEDS ORDERED: Gelatin 12 MM/7 MM Topical Foam TOPICAL PRN (16:46)
--- NOTE | 2018-04-06 16:54 | XR ---
EXAM DATE: 04/06/2018 4:43 PM EDT AGE/SEX: 37 years / Male INDICATIONS: Fever starting today CLINICAL DATA: This is the patient's initial encounter. Patient reports that signs and symptoms have been present for 1 day and indicates a pain score of Nonresponsive. MEDICAL/SURGICAL HISTORY: . Renal failure, chronic. Diabetes. Deep venous thrombosis. Hypertens ion. . Dialysis catheter. COMPARISON: C, CHEST 1V SINGLE AP, 04/03/2018. . FINDINGS: A single AP view of the chest demonstrates a stable left IJ dual lumen central venous catheter. Mild prominence of left perihilar interstitial markings. No focal consolidation or pleural effusion. The cardiomediastinal contours are stable. Osseous structures are intact. CONCLUSION: 1. Mildly prominent interstitial markings in the perihilar left lung. 2. No focal consolidation. Electronically signed by: Emily Choi MD 04/06/2018 4:52 PM EDT
[2018-04-06] MEDS: Heparin 10,000 UNITS/10 ML Vial (for IV use) OTHER PRN (19:09)
[2018-04-06] MEDS: Sod Chloride 0.9% Inj 1,000 ML OTHER PRN (19:10)
--- NOTE | 2018-04-06 19:52 | P.HPCC ---
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 When I initially met the patient, he had CKD stage III, but with recurrent DKA over the last 12 months, he now is dialysis dependent with ESRD. He was recently discharged on 04/03 for DKA. He represents today with repeat nausea and altered mentation and a serum glucose of 1200 mg/dL. Due to his somnolence, it is difficult to get a complete HPI from him. He states he didn't check his sugars yesterday, but hasn't explained why. He missed his dialysis appointment today which he states is because he was nauseated. he denies fever, chills, vomiting, diarrhea, or abdominal pain. In the ER, he had significant acidosis, lactic acidosis, pseudohyponatremia. received 2L NS bolus in ER, but still had a rising lactate. started on insulin drip and emergent hemodialysis. the remainder of his history is unobtainable due to his somnolence. ROS is limited as described above, otherwise unobtainable. Inpatient Certification: I certify that the inpatient services were ordered in accordance with Medicare regulations governing the order. This includes certification that hospital inpatient services are reasonable and necessary and in the case of services not specified as inpatient-only under 42 CFR 419.22(n), that they are appropriately provided as inpatient services in accordance to with the 2-midnight benchmark under 43 CFR 412.3(e) Estimated Total Length of Stay (Days): 4 Plans for Post Hospital Care: Not yet determined Review of Systems unobtainable due to mental status PMFSH - History History Provided By: Patient, Medical Record - Medical History Medical History: Medical History (Last Reviewed 04/06/18 @ 19:42 by Jose Christiansen MD) CKD (chronic kidney disease) stage 5, GFR less than 15 ml/min (Acute) Hypertension (Acute) DVT (deep venous thrombosis) (Acute) Diabetic ulcer of heel (Acute) Anxiety (Acute) Diabetic retinopathy (Acute) Depression (Acute) Neuropathy (Acute) Diabetes (Acute) - Surgical History Surgical History: Surgical History (Last Reviewed 04/06/18 @ 19:42 by Jose Christiansen MD) AVF (arteriovenous fistula) (Acute) Status post right foot surgery (Acute) - Family History Family History: Family History (Last Reviewed 04/06/18 @ 15:31 by Kalpesh Dalal MD) Other Family history unknown - Tobacco History Second Hand Smoke Exposure: No Smoking Status: Never smoker Tobacco Type: Cigarettes - Alcohol History How Often Do You Have a Drink Containing Alcohol: Monthly or less - Substance Use History Substance History: No History of Abuse - Travel History History of Recent Travel: No Recent Travel in the [place] Within the Last 8 Weeks: No Recent Travel Out of the Country Within the Last 8 Weeks: No - Immunization History Tetanus Immunization: Unsure Hx Influenza Vaccine This Season: No Medications and Allergies Active Medications: Active Medications Acetaminophen (Tylenol) 650 mg PO UNSCH PRN PRN Reason: SEE LABEL COMMENTS Acetaminophen (Tylenol) 650 mg PO Q6H PRN PRN Reason: TEMPERATURE > 101 F Chlorhexidine Gluconate (Chlorhexidine 2% Cloth) 3 pack TOPICAL DAILY@0400 JORDAN Stop: 04/12/18 03:59 Clonidine HCl (Catapres) 0.1 mg PO UNSCH PRN PRN Reason: SEE LABEL COMMENTS Diphenhydramine HCl (Benadryl) 25 mg PO UNSCH PRN PRN Reason: SEE LABEL COMMENTS Epoetin Pipo (Epogen Inj) 10,000 unit IV.PUSH UNSCH PRN PRN Reason: SEE LABEL COMMENTS Gelatin (Gelfoam 12 Mm/7 Mm Topical) 1 foam TOPICAL PRN PRN PRN Reason: help stop bleeding from site Gentamicin Sulfate (Gentamicin Inj) 20 mg OTHER WITH DIALYSIS PRN PRN Reason: Dwell Gentamycin Lock Last Admin: 04/06/18 19:09 Dose: 20 mg Heparin Sodium (Porcine) (Heparin Inj) 8,000 units OTHER WITH DIALYSIS PRN PRN Reason: for machine prime Heparin Sodium (Porcine) (Heparin Inj) 1,000 units OTHER WITH DIALYSIS PRN PRN Reason: Dwell Heparin to Fill Catheter Last Admin: 04/06/18 19:09 Dose: 1,000 units Sodium Chloride (Ns Inj) 1,000 mls @ 0 mls/hr IV.SIG BOLUS JORDAN Insulin Human Regular 100 unit (/ Sodium Chloride) 100 mls @ 7 mls/hr IV.CONT TITRATE PRN; Protocol PRN Reason: See protocol Last Admin: 04/06/18 17:49 Dose: 7.5 units/hr, 7.5 mls/hr Albumin Human (Flexbumin 25% Inj) 100 mls @ 60 mls/hr IV.SIG WITH DIALYSIS PRN PRN Reason: hypotension / volume replace Sodium Chloride (Ns Inj) 1,000 mls @ 0 mls/hr OTHER .Q0M PRN PRN Reason: for prime and rinse back Last Admin: 04/06/18 19:10 Dose: 200 mls/hr Sodium Chloride (Ns Inj) 1,000 mls @ 200 mls/hr OTHER .Q5H PRN PRN Reason: for dialyzer flush PRN Sodium Chloride (Ns Inj) 1,000 mls @ 0 mls/hr IV.CONT .Q0M PRN PRN Reason: hypotension / volume replace Mannitol (Mannitol Inj) 12.5 gm IV.PUSH UNSCH PRN PRN Reason: hypotension / volume replace Nitroglycerin (Nitrostat Sl) 0.4 mg SL Q5M PRN PRN Reason: CHEST PAIN Sodium Chloride (Ns Flush) 5 ml IV.FLUSH PRN PRN PRN Reason: flush each lumen during HD Allergies Allergy/AdvReac Type Severity Reaction Status Date / Time amoxicillin Allergy Severe Rash Verified 04/06/18 15:04 broccoli Allergy Severe ANAPHYLAXIS Verified 04/06/18 15:04 mushroom Allergy Severe ANAPHYLAXIS Verified 04/06/18 15:04 penicillin G Allergy Severe Hives Verified 04/06/18 15:04 Home Medications Medication Instructions Recorded Confirmed Type apixaban [Eliquis] 5 mg PO BID 01/26/18 04/06/18 History aspirin 81 mg PO DAILY 01/26/18 04/06/18 History ergocalciferol (vitamin D2) 50,000 unit PO QWEEK 03/19/18 04/06/18 History [Vitamin D2] multivitamin 1 tab PO DAILY 03/19/18 04/06/18 History pregabalin [Lyrica] 150 mg PO BID 03/19/18 04/06/18 History insulin lispro [Humalog U-100 See Protocol SUB-Q TID 04/03/18 04/06/18 History Insulin] nifedipine 90 mg PO DAILY 04/03/18 04/06/18 History potassium chloride 10 meq PO BID 04/03/18 04/06/18 History pregabalin [Lyrica] 100 mg PO BID 04/03/18 04/06/18 History propranolol 60 mg PO BID 04/03/18 04/06/18 History sertraline 100 mg PO DAILY 04/03/18 04/06/18 History topiramate 50 mg PO BID 04/03/18 04/06/18 History Results - Labs CBC & Chem 7: 04/06/18 15:35 04/06/18 15:35 Labs: Short CBC 04/06/18 Range/Units 15:35 WBC 9.1 (4.0-11.0) th/mm3 Hgb 11.6 L (13.0-17.0) gm/dL Hct 36.3 L (39.0-51.0) % Plt Count 222 (150-450) th/mm3 BMP 04/06/18 15:35 Sodium 123 L* Potassium 4.0 Chloride 89 L Carbon Dioxide 18.8 L BUN 41 H Creatinine 5.30 H Calcium 7.7 L Liver Function 04/06/18 Range/Units 15:35 Total Bilirubin 0.3 (0.2-1.0) mg/dL AST 12 L (15-37) U/L ALT 14 (12-78) U/L Alkaline Phosphatase 256 H (45-117) U/L Albumin 2.9 L (3.4-5.0) g/dL - Imaging Impressions Head CT 04/06/18 15:10 CONCLUSION: 1. No evidence of acute intracranial hemorrhage or acute large vessel cortical based infarction. 2. Mild prominence of the ventricles. 3. Coarse calcification of the right globe. The left lens is not visualized. Recommend clinical correlation. . Chest X-Ray 04/06/18 16:27 CONCLUSION: 1. Mildly prominent interstitial markings in the perihilar left lung. 2. No focal consolidation. Exam Vital signs: Vital Signs 04/06/18 14:59 04/06/18 15:10 04/06/18 17:29 Temperature 37.0 C Pulse Rate 117 H 113 H Respiratory Rate 20 Blood Pressure 225/125 H 205/113 H Pulse Oximetry 97 94 L 96 04/06/18 17:31 04/06/18 17:37 04/06/18 18:00 Temperature 37.9 C H Pulse Rate 112 H 114 H 108 H Respiratory Rate 19 20 16 Blood Pressure 206/100 H 211/120 H Pulse Oximetry 95 95 96 Intake & Output 04/06/18 04/06/18 04/07/18 06:59 18:59 06:59 Weight 70.5 kg Narrative: gen: young male, lying in bed, somnolent but arousable, in distress. heent: nc. at. perrl. mm dry. neck: no jvd. tunneled permacath in place chest: kussmaul breathing. labored. tachypneic. equal chest rise. room air. cv: tachycardic rate, regular rhythm. sinus. abd: soft, nontender, nondistended. no guarding. extr: trace pitting edema. distal pulses 2+. adequate cap refill. neuro: RASS -2. arouses to voice. follows simple commands but falls back asleep. no focal deficits. protects airway. Septic Shock Reassessment Septic shock perfusion: reassessment completed Caprini VTE Risk Assessment Caprini VTE Risk Assessment: Moderate/High Risk (score >= 2) Caprini Risk Assessment Model: Point Value = 1 Point Value = 2 Point Value = 3 Point Value = 5 Age 41-60 Minor surgery BMI > 25 kg/m2 Swollen legs Varicose veins or History of unexplained or recurrent spontaneous Oral contraceptives or hormone replacement Sepsis (< 1 month) Serious lung disease, including pneumonia (< 1 month) Abnormal pulmonary function Acute myocardial infarction Congestive heart failure (< 1 month) History of inflammatory bowel disease Medical patient at bed rest Age 61-74 Arthroscopic surgery Major open surgery (> 45 min) Laparoscopic surgery (> 45 min) Malignancy Confined to bed (> 72 hours) Immobilizing plaster cast Central venous access Age >= 75 History of VTE Family history of VTE Factor V Leiden Prothrombin [id number] Lupus anticoagulant Anticardiolipin antibodies Elevated serum homocysteine Heparin-induced thrombocytopenia Other congenital or acquired thrombophilia Stroke (< 1 month) Elective arthroplasty Hip, pelvis, or leg fracture Acute spinal cord injury (< 1 month) Prophylaxis Regimen: Total Risk Factor Score Risk Level Prophylaxis Regimen 0-1 Low Early ambulation 2 Moderate Order ONE of the following: *Sequential Compression Device (SCD) *Heparin 5000 units SQ BID 3-4 Higher Order ONE of the following medications: *Heparin 5000 units SQ TID *Enoxaparin/Lovenox 40 mg SQ daily (WT < 150 kg, CrCl > 30 mL/min) *Enoxaparin/Lovenox 30 mg SQ daily (WT < 150 kg, CrCl > 10-29 mL/min) *Enoxaparin/Lovenox 30 mg SQ BID (WT < 150 kg, CrCl > 30 mL/min) AND/OR *Sequential Compression Device (SCD) 5 or more Highest Order ONE of the following medications: *Heparin 5000 units SQ TID (Preferred with Epidurals) *Enoxaparin/Lovenox 40 mg SQ daily (WT < 150 kg, CrCl > 30 mL/min) *Enoxaparin/Lovenox 30 mg SQ daily (WT < 150 kg, CrCl > 10-29 mL/min) *Enoxaparin/Lovenox 30 mg SQ BID (WT < 150 kg, CrCl > 30 mL/min) AND *Sequential Compression Device (SCD) Assessment and Plan - Assessment and Plan Plan: Assessment: 37yM with Type I DM and ESRD and very non-compliant with insulin therapy over last year, now represents with recurrent severe diabetic ketoacidosis. I am very concerned that this is a repeat cycle of medical noncompliance leading to life-threatening acidosis. On exam today, it does not appear that there is any infectious reason for him to develop recurrent DKA, and he does admit he did not check his glucose at all yesterday. Over the last 12 months, I have watched his renal function decline due to multiple repeat critical illnesses from DKA, to the point that he is now dialysis dependent in end-stage renal disease. At this point, I do not think he is a safe discharge home, due to recurrent life-threatening DKA: I do not think he can safely manage his glycemic control, even with the aid of home health. I am not sure what psychosocial factors contribute to the patient's inability to control his diabetes, and he is too somnolent today to participate in a discussion about this. Will need to be fully addressed before a discharge plan can be made, and I would push strongly for a SNF discharge until the patient can prove over the coming months that a safe diabetes plan can be formulated: one that successfully keeps him out of the hospital and critical illness. For now, he has significant organ dysfunction and tissue injury due to his critical illness. he is critically ill with multiple organ failure and life- threatening acidosis. Active Problems: Acute metabolic encephalopathy Severe diabetic ketoacidosis Severe anion-gap metabolic acidosis Serum Hyperkalemia in the setting of total body potassium depletion End-stage renal disease requiring emergent hemodialysis for refractory acidosis Severe hyperglycemia Poorly controlled Type I Diabetes Mellitus Pseudohyponatremia secondary to severe hyperglycemia Lactic Acidosis secondary to tissue hypoperfusion Acute intravascular volume depletion Plan: admit to ICU insulin drip q1h accuchecks start D5NS @ 125 cc/hr add additional 1L NS bolus: lactate has climbed despite 2L ivf in ER. do not pull any volume with dialysis emergent IHD for acidosis and electrolyte abnormalities send BMP after HD and q6h serially close attention to serum electrolytes in the setting of rapidly shifting glycemic, insulin, and acid/base status advance diet once serum glucose < 300 mg/dL f/u blood cultures and u/a. no identifiable infectious source, but rule out bacteremia. hold abx: do not want to risk c. diff or resistant bacteria. trend lactates. admit to ICU. critically ill. Critical care time: 67 minutes, exclusive of separately billable procedures. actively managed organ dysfunction and acidosis, electrolytes, and DKA.
[2018-04-06] MEDS: Famotidine 20 MG Tablet PO SCH (20:37)
[2018-04-06] MEDS: Dextrose 5%/NaCl 0.9% Inj 1,000 ML IV.CONT SCH (20:37)
[2018-04-06] MEDS: Heparin - SQ 10,000 UNITS/ML Vial SQ SCH (22:42)
[2018-04-07 02:38] LABS: Calcium 7.6 mg/dL (8.5-10.1); Magnesium 1.6 mg/dL (1.5-2.5); Phosphorus 1.7 mg/dL (2.5-4.9)
[2018-04-07 02:39] LABS: Potassium 2.6 meq/L (3.5-5.1)
[2018-04-07] MEDS ORDERED: DC Insulin drip 2 hrs post basal insulin dose OTHER ONE (03:03)
[2018-04-07] MEDS ORDERED: Dextrose 50% in Water 50 ML Vial IV.PUSH PRN (03:03)
[2018-04-07] MEDS ORDERED: DC previous DKA orders (HMC 1917) OTHER ONE (03:03)
[2018-04-07] MEDS ORDERED: Potassium Phosphate 500 MG Soluble Tablet PO ONE (03:06)
[2018-04-07] MEDS ORDERED: Chlorhexidine Gluconate 2% 1 Pack (2 Cloths) TOPICAL PRN (04:00)
[2018-04-07] MEDS: Chlorhexidine Gluconate 2% 1 Pack (2 Cloths) TOPICAL SCH (04:35)
[2018-04-07] MEDS: Dextrose 5%/NaCl 0.9% Inj 1,000 ML IV.CONT SCH ×2 (05:22→13:58)
[2018-04-07] MEDS: Heparin - SQ 10,000 UNITS/ML Vial SQ SCH ×3 (05:23→22:12)
--- NOTE | 2018-04-07 06:05 | P.PNCC ---
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 When I initially met the patient, he had CKD stage III, but with recurrent DKA over the last 12 months, he now is dialysis dependent with ESRD. He was recently discharged on 04/03 for DKA. He represents today with repeat nausea and altered mentation and a serum glucose of 1200 mg/dL. Due to his somnolence, it is difficult to get a complete HPI from him. He states he didn't check his sugars yesterday, but hasn't explained why. He missed his dialysis appointment today which he states is because he was nauseated. he denies fever, chills, vomiting, diarrhea, or abdominal pain. In the ER, he had significant acidosis, lactic acidosis, pseudohyponatremia. received 2L NS bolus in ER, but still had a rising lactate. started on insulin drip and emergent hemodialysis. the remainder of his history is unobtainable due to his somnolence. ROS is limited as described above, otherwise unobtainable. Subjective: 04/07: mental status improved. gap closed. s/p IHD. still on mivf and K very low despite HD. lactate cleared. ready for transfer out of ICU. Objective Vital Signs / I&O: Vital Signs 04/06/18 14:59 04/06/18 15:10 04/06/18 17:29 Temperature 37.0 C Pulse Rate 117 H 113 H Respiratory Rate 20 Blood Pressure 225/125 H 205/113 H Pulse Oximetry 97 94 L 96 04/06/18 17:31 04/06/18 17:37 04/06/18 18:00 Temperature 37.9 C H Pulse Rate 112 H 114 H 108 H Respiratory Rate 19 20 16 Blood Pressure 206/100 H 211/120 H Pulse Oximetry 95 95 96 04/06/18 19:30 04/06/18 20:00 04/06/18 22:00 Temperature 38.1 C H Pulse Rate 104 H 94 H Respiratory Rate 16 Blood Pressure 145/93 H Pulse Oximetry 97 99 04/07/18 00:00 04/07/18 02:00 04/07/18 02:30 Temperature 37.3 C Pulse Rate 90 86 82 Respiratory Rate 14 Blood Pressure 140/74 Pulse Oximetry 97 04/07/18 04:00 04/07/18 04:30 Temperature 37.3 C Pulse Rate 92 H 92 H Respiratory Rate 14 Blood Pressure 137/83 Pulse Oximetry 97 Intake & Output 04/06/18 04/06/18 04/07/18 06:59 18:59 06:59 Intake Total 1033 / 1033 Balance 1033 / 1033 Weight 70.5 kg Intake: IV 1033 / 1033 D5W/Normal Saline Inj 1,000 ML 1000 / 1000 @ 125 mls/hr IV.CONT .Q8H JORDAN Rx#:[id number] NovoLIN R (IV Infusion) 100 33 / 33 UNIT In NS Inj 99 ML @ 7 UNITS/ HR 7 mls/hr IV.CONT TITRATE PRN Rx#:[id number] Result Diagrams: 04/06/18 15:35 04/07/18 00:50 Objective Remarks: gen: young male, lying in bed, much more awake, no distress. heent: nc. at. perrl. mm moist. neck: no jvd. tunneled permacath in place chest: unlabored. equal chest rise. room air. cv: normal rate, regular rhythm. sinus. abd: soft, nontender, nondistended. no guarding. extr: trace pitting edema. distal pulses 2+. adequate cap refill. neuro: RASS 0. resting comfortably. follows commands. no focal deficits. Assessment and Plan - Assessment and Plan Plan: Assessment: 37yM with Type I DM and ESRD and very non-compliant with insulin therapy over last year, now represents with recurrent severe diabetic ketoacidosis. I am very concerned that this is a repeat cycle of medical noncompliance leading to life-threatening acidosis. On exam today, it does not appear that there is any infectious reason for him to develop recurrent DKA, and he does admit he did not check his glucose at all yesterday. Over the last 12 months, I have watched his renal function decline due to multiple repeat critical illnesses from DKA, to the point that he is now dialysis dependent in end-stage renal disease. At this point, I do not think he is a safe discharge home, due to recurrent life-threatening DKA: I do not think he can safely manage his glycemic control, even with the aid of home health. I would push strongly for a SNF discharge until the patient can prove over the coming months that a safe diabetes plan can be formulated: one that successfully keeps him out of the hospital and critical illness. From acute DKA, clinically improving and can safely be transferred out of ICU. Active Problems: Acute metabolic encephalopathy- resolving. Severe diabetic ketoacidosis- resolved Severe anion-gap metabolic acidosis- resolved. Severe acute hypokalemia- persistent End-stage renal disease requiring emergent hemodialysis Severe hyperglycemia- resolving. Poorly controlled Type I Diabetes Mellitus Pseudohyponatremia secondary to severe hyperglycemia- resolved Lactic Acidosis secondary to tissue hypoperfusion- resolved Acute intravascular volume depletion- resolving. Plan: transfer out of ICU continue d5NS @ 125cc/hr- clinically still appears dehydrated. aggressive K replacement despite ESRD: total body potassium store deplete continue serial labs levemir SSI patient has insulin pump: will need to eventually have it evaluated to make sure it is working properly before we restart it and discharge him. nephrology consulted and following: may need additional HD during this hospital stay diabetic diet as tolerated. oob f/u blood cultures and u/a. no identifiable infectious source, but rule out bacteremia. hold abx: do not want to risk c. diff or resistant bacteria.
[2018-04-07] MEDS ORDERED: Insulin Detemir Inj 1,000 UNIT/10 ML Vial SQ SCH ×3 (06:18→09:00)
[2018-04-07] MEDS: Potassium Chlor 20 mEq Premix 20 MEQ/100 ML PIGGYBACK IV.SIG SCH ×3 (06:44→08:42)
[2018-04-07 06:52] LABS: Baso # (Auto) 0.1 th/mm3 (0.0-0.2); Baso % (Auto) 0.8 % (0.0-2.0); Eos # (Auto) 0.1 th/mm3 (0.0-0.4); Eos % (Auto) 0.7 % (0.0-4.0); Hematocrit 29.6 % (39.0-51.0); Hemoglobin 9.9 gm/dL (13.0-17.0); Lymph # (Auto) 1.7 th/mm3 (1.0-4.8); Lymph % (Auto) 21.1 % (9.0-44.0); Mean Corpuscular HGB Conc 33.3 % (32.0-36.0); Mean Corpuscular Hemoglobin 27.4 pg (27.0-34.0); Mean Corpuscular Volume 82.3 fL (80.0-100.0); Mean Platelet Volume 8.8 fL (7.0-11.0); Mono # (Auto) 0.5 th/mm3 (0.0-0.9); Mono % (Auto) 6.2 % (0.0-8.0); Neut # (Auto) 5.9 th/mm3 (1.8-7.7); Neut % (Auto) 71.2 % (16.0-70.0); Platelet Count 225 th/mm3 (150-450); Red Blood Count 3.61 mil/mm3 (4.50-5.90); Red Cell Distribution Width 15.1 % (11.6-17.2); White Blood Count 8.3 th/mm3 (4.0-11.0)
[2018-04-07 06:55] LABS: Potassium 3.1 meq/L (3.5-5.1)
[2018-04-07 06:59] LABS: Carbon Dioxide 26.5 meq/L (21.0-32.0); Magnesium 1.5 mg/dL (1.5-2.5)
[2018-04-07 07:06] LABS: Beta Hydroxybutyric Acid 0.95 mmol/L (0.00-0.39); Calcium 7.4 mg/dL (8.5-10.1); Phosphorus 2.9 mg/dL (2.5-4.9)
[2018-04-07 07:13] LABS: Platelet Estimate Normal (Normal); Platelet Morphology Normal (Normal); RBC Morphology Normal (Normal)
[2018-04-07] MEDS: Insulin NovoLOG Aspart Correctional Sugar Inj SQ SCH ×4 (08:37→22:34)
[2018-04-07] MEDS: Famotidine 20 MG Tablet PO SCH ×2 (08:38→22:11)
[2018-04-07] MEDS ORDERED: ALPRAZolam 0.25 MG Tablet PO PRN (11:44)
[2018-04-07 13:08] LABS: Potassium 3.6 meq/L (3.5-5.1)
[2018-04-07 13:30] LABS: Calcium 7.3 mg/dL (8.5-10.1); Carbon Dioxide 25.5 meq/L (21.0-32.0); Magnesium 1.8 mg/dL (1.5-2.5); Phosphorus 2.1 mg/dL (2.5-4.9)
[2018-04-07] MEDS: Furosemide 40 MG Tablet PO SCH (13:59)
[2018-04-07] MEDS: Sertraline 100 MG Tablet PO SCH (14:01)
[2018-04-07 14:04] LABS: Total Protein 5.6 g/dL (6.4-8.2)
[2018-04-07] MEDS: Metoprolol Tartrate 25 MG Tablet PO SCH ×2 (14:51→22:11)
[2018-04-07] MEDS: Calcium Acetate 667 MG Capsule PO SCH ×2 (14:52→17:21)
[2018-04-07] MEDS: amLODIPine 10 MG Tablet PO SCH (14:52)
[2018-04-07] MEDS: Topiramate 25 MG Tablet PO SCH ×2 (14:53→22:10)
[2018-04-07] MEDS: hydrALAZINE 50 MG Tablet PO SCH ×2 (14:59→17:21)
[2018-04-07] MEDS: Calcitriol 0.25 MCG Capsule PO SCH (14:59)
--- NOTE | 2018-04-07 15:35 | MB ---
cc: Bay Gifford MD DATE: 04/07/2018 REASON FOR CONSULTATION: End-stage renal disease, on hemodialysis for management. HISTORY OF PRESENT ILLNESS: This is a 37-year-old male with a past medical history of hypertension, diabetes mellitus, diabetic retinopathy with legal blindness, history of end-stage renal disease on hemodialysis 3 times per week, history of deep vein thrombosis, history of Clostridium difficile in the past, came to the hospital with complaint of nausea, vomiting, abdominal pain, severe headache. I was called to see the patient for the management of dialysis. He has been on hemodialysis Monday, Monday, and Monday. The patient has multiple admissions in the last few months. He went for his regular dialysis yesterday; and when he reached there, he was complaining of severe headache and he has been vomiting at home and before he went there, and his blood pressure was very high, and the patient was sent to the hospital without doing dialysis. When he came in here, it was found that his blood sugar was more than 1200. His blood pressure was very high and patient was admitted to intensive care unit with a diagnosis of severe hypertension and diabetic ketoacidosis. The patient had hemodialysis done yesterday evening and he tolerated it well. His blood pressure is slightly better. He still has some headache, but is improving. His vomiting is better. He denies any abdominal pain now. He was vomiting since the night before yesterday. He does not remember exactly how many times he has some abdominal pain at that time. There is no history of diarrhea. PAST MEDICAL HISTORY: Hypertension, diabetes mellitus, diabetic retinopathy, end-stage renal disease on hemodialysis, history of deep vein thrombosis. PAST SURGICAL HISTORY: Right arm AV fistula surgery, right foot surgery. REVIEW OF SYSTEMS: The patient has generalized weakness, feeling tired, is still having some headache, but is better than before. There is no dizziness. He has mild nausea. There is no vomiting today, but he was vomiting more yesterday. There is history of abdominal pain, but abdominal pain is better. There is no shortness of breath, no chest pain. No palpitation. Denies any history of fever. SOCIAL HISTORY: The patient is single and he lives alone with a roommate. There is no history of smoking or alcoholism. FAMILY HISTORY: Noncontributory. ALLERGIES: HE HAS ALLERGY TO PENICILLIN, AMOXICILLIN, BROCCOLI AND MUSHROOM. MEDICATIONS: Currently, he is on following medications: 1. Tylenol as needed. 2. [place] as needed. 3. Xanax 0.25 mg p.r.n. 4. Amlodipine 10 mg once a day. 5. Eliquis 5 mg b.i.d. 6. Aspirin 81 mg once a day. 7. Calcitriol 0.25 mcg daily. 8. PhosLo 1334 mg t.i.d. 9. Catapres p.r.n. 10. Benadryl p.r.n. 11. Vitamin D2, 50,000 units every 7 day. 12. Epogen 10,000 units with dialysis. 13. Furosemide 40 mg once a day. 14. Hydralazine 100 mg t.i.d. 15. Metoprolol 25 mg b.i.d. 16. Klor-Con 10 mEq b.i.d. 17. Lyrica 100 mg b.i.d. 18. Zoloft 100 mg daily. 19. Topamax 50 mg b.i.d. PHYSICAL EXAMINATION: GENERAL: On examination, patient is awake, alert. He is complaining of mild abdominal pain. VITAL SIGNS: His last blood pressure is 176/101, temperature 98 degrees Fahrenheit, oxygen saturation 99%. HEENT: Pupils are mid constricted. Nonicteric sclerae. Conjunctivae are pale. NECK: Supple. JVD is not elevated. LUNGS: The patient has bilateral good air entry with occasional wheezing. HEART: S1, S2. Regular rate and rhythm. ABDOMEN: Distended, soft, lax. There is no tenderness. Bowel sounds positive. EXTREMITIES: There is no pedal edema. LABORATORY DATA: WBC count is 8.3, hemoglobin 9.9, platelet count of 225, neutrophils 71.2%. Sodium 143, potassium 3.1, chloride 105, bicarbonate 26.5, BUN 17, creatinine 3.3, glucose now is 220, calcium is 7.4, corrected calcium is 8.6, phosphorus is 2.9, alkaline phosphatase is 256, AST 12, ALT 14, albumin is 2.9, total protein 6.0. Beta hydroxybutyrate is 0.95 now. IMAGING STUDY: CT scan of the brain was done, which shows no evidence of acute intracranial hemorrhage, some prominence of ventricles, calcifications in the right globe. Chest x-ray was done which shows some increased interstitial marking. ASSESSMENT AND PLAN: 1. Hypertensive urgency. 2. Hyperglycemia and diabetic ketoacidosis. 3. End-stage renal disease on hemodialysis. 4. Anemia. 5. Nausea and vomiting. The patient has improvement in his blood sugar and his metabolic acidosis. He had hemodialysis done yesterday. I will give him some [place] for his headache, continue the insulin, hemodialysis to be continued Monday, Monday and Monday. He got the Epogen, follow the hemoglobin. If blood pressure remains high will need some adjustment in his blood pressure medications. Thank you for the consultation. I will follow the patient while he is in the hospital. MD KATIA Arreola/ryne , 12:55 PM , 01:06 PM
[2018-04-07 19:05] LABS: Potassium 3.3 meq/L (3.5-5.1)
[2018-04-07 19:18] LABS: Calcium 7.1 mg/dL (8.5-10.1); Carbon Dioxide 21.5 meq/L (21.0-32.0); Magnesium 1.6 mg/dL (1.5-2.5); Phosphorus 2.2 mg/dL (2.5-4.9)
[2018-04-07 19:46] LABS: Beta Hydroxybutyric Acid 0.05 mmol/L (0.00-0.39)
[2018-04-08] MEDS: Dextrose 5%/NaCl 0.9% Inj 1,000 ML IV.CONT SCH (03:32)
[2018-04-08] MEDS: Chlorhexidine Gluconate 2% 1 Pack (2 Cloths) TOPICAL SCH (05:38)
[2018-04-08] MEDS: Heparin - SQ 10,000 UNITS/ML Vial SQ SCH ×3 (06:27→21:19)
[2018-04-08 08:39] LABS: Baso % (Auto) 0.8 % (0.0-2.0); Eos # (Auto) 0.2 th/mm3 (0.0-0.4); Eos % (Auto) 3.2 % (0.0-4.0); Hematocrit 30.6 % (39.0-51.0); Lymph # (Auto) 1.7 th/mm3 (1.0-4.8); Lymph % (Auto) 28.2 % (9.0-44.0); Mean Corpuscular HGB Conc 32.7 % (32.0-36.0); Mean Corpuscular Hemoglobin 27.2 pg (27.0-34.0); Mean Corpuscular Volume 83.3 fL (80.0-100.0); Mean Platelet Volume 8.7 fL (7.0-11.0); Mono # (Auto) 0.4 th/mm3 (0.0-0.9); Mono % (Auto) 6.4 % (0.0-8.0); Neut # (Auto) 3.7 th/mm3 (1.8-7.7); Neut % (Auto) 61.4 % (16.0-70.0); Platelet Count 217 th/mm3 (150-450); Red Blood Count 3.67 mil/mm3 (4.50-5.90); Red Cell Distribution Width 14.8 % (11.6-17.2)
[2018-04-08 08:48] LABS: Potassium 3.4 meq/L (3.5-5.1)
[2018-04-08 08:50] LABS: Calcium 7.5 mg/dL (8.5-10.1)
[2018-04-08 08:58] LABS: Magnesium 1.7 mg/dL (1.5-2.5); Phosphorus 2.6 mg/dL (2.5-4.9)
[2018-04-08] MEDS: Calcitriol 0.25 MCG Capsule PO SCH (09:17)
[2018-04-08] MEDS: amLODIPine 10 MG Tablet PO SCH (09:17)
[2018-04-08] MEDS: hydrALAZINE 50 MG Tablet PO SCH ×3 (09:18→17:12)
[2018-04-08] MEDS: Furosemide 40 MG Tablet PO SCH (09:18)
[2018-04-08] MEDS: Sertraline 100 MG Tablet PO SCH (09:19)
[2018-04-08] MEDS: Insulin Detemir Inj 1,000 UNIT/10 ML Vial SQ SCH (09:20)
[2018-04-08] MEDS: Topiramate 25 MG Tablet PO SCH ×2 (09:20→21:20)
[2018-04-08] MEDS: Famotidine 20 MG Tablet PO SCH ×2 (09:20→21:20)
[2018-04-08] MEDS: Insulin NovoLOG Aspart Correctional Sugar Inj SQ SCH ×4 (09:21→21:31)
[2018-04-08] MEDS: Calcium Acetate 667 MG Capsule PO SCH ×3 (09:22→17:12)
[2018-04-08] MEDS: Metoprolol Tartrate 25 MG Tablet PO SCH ×2 (09:24→21:31)
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
--- NOTE | 2018-04-08 18:10 | P.PNNP ---
Subjective Interval history: Patient is alert, no vomiting, has mild headache, no dizziness. Physical Exam Vital signs: Vital Signs 04/07/18 19:49 04/07/18 20:00 04/08/18 00:00 Temperature 97.4 F L 97.5 F L Pulse Rate 80 79 Respiratory Rate 20 20 Blood Pressure 106/56 L 140/74 Pulse Oximetry 98 97 99 04/08/18 08:00 04/08/18 12:00 04/08/18 16:00 Temperature 97.8 F 97.7 F 98.0 F Pulse Rate 81 78 81 Respiratory Rate 16 18 18 Blood Pressure 126/81 151/84 H 127/67 Pulse Oximetry 98 96 98 Intake & Output 04/07/18 04/08/18 04/08/18 18:59 06:59 18:59 Intake Total 2160 / 2160 1120 / 1120 Output Total 1850 / 1850 800 / 800 Balance 310 / 310 320 / 320 Weight 74.5 kg Intake: IV 1200 / 1200 1000 / 1000 D5W/Normal Saline Inj 1,000 ML 1000 / 1000 1000 / 1000 @ 125 mls/hr IV.CONT .Q8H JORDAN Rx#:[id number] KCl 20 mEq Premix Inj 20 meq In 200 / 200 100 ml @ 50 mls/hr IV.SIG Q2H JORDAN Rx#:[id number] Oral 960 / 960 120 / 120 Output: Urine 1850 / 1850 800 / 800 Other: # Voids 0 Narrative: GENERAL: Well-developed, well-nourished, in no acute distress. alert and orientated HEENT: Head is normocephalic without any lesions or masses noted. Facial features are symmetric. Eyes: Extraocular muscles are intact. Conjunctivae were clear. NECK: Supple without any masses. Trachea midline no deviation. No JVD, tunneled permacath in place CARDIAC: Regular rhythm, regular rate. S1/S2 are heard. No murmurs gallops or rubs. LUNGS: Clear to auscultation bilaterally. No wheeze, rhonchi or rales. No use of accessory muscles on inspiration or expiration. ABDOMEN: Soft, nontender. Nondistended. Bowel sounds heard in all 4 quadrants. No organomegaly or masses. Negative rebound, negative guarding EXTREMITIES: No edema, pulses are equal bilaterally. No cyanosis or clubbing NEUROLOGY: Mood and affect appear appropriate. Assessment and Plan - Plan Assessment: 1. Hypertensive urgency. 2. Hyperglycemia and diabetic ketoacidosis. 3. End-stage renal disease on hemodialysis. 4. Anemia. 5. Nausea and vomiting. Plan: Patient with end stage renal disease, admitted with very high BP and high BP with DKA. Now the BS and BP improving. HD was done on Monday. Continue anti hypertensive. Follow the BP and BS. HD will be in AM.
[2018-04-09] MEDS: Chlorhexidine Gluconate 2% 1 Pack (2 Cloths) TOPICAL SCH (04:20)
[2018-04-09] MEDS: Heparin - SQ 10,000 UNITS/ML Vial SQ SCH ×2 (05:30→16:39)
[2018-04-09] MEDS: amLODIPine 10 MG Tablet PO SCH (08:17)
[2018-04-09] MEDS: Calcitriol 0.25 MCG Capsule PO SCH (08:18)
[2018-04-09] MEDS: Calcium Acetate 667 MG Capsule PO SCH ×3 (08:18→18:28)
[2018-04-09] MEDS: Topiramate 25 MG Tablet PO SCH ×2 (08:18→20:46)
[2018-04-09] MEDS: Sertraline 100 MG Tablet PO SCH (08:19)
[2018-04-09] MEDS: Famotidine 20 MG Tablet PO SCH ×2 (08:19→20:44)
[2018-04-09] MEDS: hydrALAZINE 50 MG Tablet PO SCH ×3 (08:20→18:26)
[2018-04-09] MEDS: Metoprolol Tartrate 25 MG Tablet PO SCH ×2 (08:20→20:44)
[2018-04-09] MEDS: Furosemide 40 MG Tablet PO SCH (08:20)
[2018-04-09] MEDS: Insulin NovoLOG Aspart Correctional Sugar Inj SQ SCH ×4 (08:21→20:50)
[2018-04-09] MEDS: Insulin Detemir Inj 1,000 UNIT/10 ML Vial SQ SCH (08:21)
--- NOTE | 2018-04-09 09:19 | P.PN ---
Subjective Interval history: 37-year-old male who is seen in follow-up for uncontrolled diabetes. Patient resting comfortably in bed. Patient has Mountain Dew bottles in the room. Patient did have controlled glucose while he was in the ICU, now that he is down on medical floor and apparently not following his diet is diabetes is out of control again. staff field engineer was consulted for recommendations. To evaluate patient's insulin pump per function and use. Vital signs are stable, patient remains afebrile. Physical Exam Vital signs: Vital Signs 04/08/18 12:00 04/08/18 16:00 04/08/18 20:00 Temperature 97.7 F 98.0 F 97.8 F Pulse Rate 78 81 85 Respiratory Rate 18 18 18 Blood Pressure 151/84 H 127/67 126/72 Pulse Oximetry 96 98 97 04/08/18 20:20 04/09/18 00:00 04/09/18 01:20 Temperature 97.0 F L Pulse Rate 80 Respiratory Rate 18 18 Blood Pressure 132/78 Pulse Oximetry 97 98 04/09/18 08:00 Temperature 97.8 F Pulse Rate 83 Respiratory Rate 16 Blood Pressure 138/83 Pulse Oximetry 98 Intake & Output 04/08/18 04/09/18 04/09/18 18:59 06:59 18:59 Intake Total 630 / 630 Output Total 900 / 900 500 / 500 Balance -900 / -900 130 / 130 Weight 74.5 kg Intake: Oral 630 / 630 Output: Urine 900 / 900 500 / 500 Other: # Voids 2 Date of Last Bowel Movement 04/06/18 Narrative: GENERAL: Well-developed, well-nourished, in no acute distress. alert and orientated HEENT: Head is normocephalic without any lesions or masses noted. Facial features are symmetric. Eyes: Extraocular muscles are intact. Conjunctivae were clear. NECK: Supple without any masses. Trachea midline no deviation. No JVD, tunneled permacath in place CARDIAC: Regular rhythm, regular rate. S1/S2 are heard. No murmurs gallops or rubs. LUNGS: Clear to auscultation bilaterally. No wheeze, rhonchi or rales. No use of accessory muscles on inspiration or expiration. ABDOMEN: Soft, nontender. Nondistended. Bowel sounds heard in all 4 quadrants. No organomegaly or masses. Negative rebound, negative guarding EXTREMITIES: No edema, pulses are equal bilaterally. No cyanosis or clubbing NEUROLOGY: Mood and affect appear appropriate. Cranial nerves II through XII grossly intact. Moving all extremities, speech is clear Results - Labs CBC & Chem 7: 04/08/18 08:00 04/08/18 08:00 Laboratory Results - last 24 hr 04/08/18 04/08/18 04/08/18 11:14 16:44 21:13 POC Glucose 199 H 270 H 170 H 04/09/18 07:28 POC Glucose 553 H* Microbiology 04/06/18 16:49 Blood - Peripheral Aerobic Blood Culture - Preliminary No growth in 2 days 04/06/18 16:49 Blood - Peripheral Anaerobic Blood Culture - Preliminary No growth in 2 days 04/06/18 16:45 Blood - Peripheral Aerobic Blood Culture - Preliminary No growth in 2 days 04/06/18 16:45 Blood - Peripheral Anaerobic Blood Culture - Preliminary No growth in 2 days Assessment and Plan - Plan Diabetic ketoacidosis, due to uncontrolled diabetes -Patient presented with encephalopathy, nausea, vomiting, intravascular volume depletion -Status post insulin IV with correction of anion gap acidosis, pseudohyponatremia -Currently stabilized on Levemir 15 units daily and sliding scale insulin -We will need to convert to him using his insulin pump and monitor for stability -staff field engineer was consulted to help with evaluating his insulin pump and management End-stage renal disease on dialysis -Nephrology was consulted for management -Patient has undergone dialysis during hospitalization -[facility] indicated patient does get dialysis on Monday, Wednesdays and Fridays Acute metabolic encephalopathy, resolved -Secondary to diabetic ketoacidosis -Discontinue neurochecks Hypertension -Home medications have been continued -Blood pressure stable DVT prevention -Patient is on Eliquis Discharge Planning: Discharge planning once patient diabetes is stable on his insulin pump
[2018-04-09 10:12] LABS: Baso % (Auto) 0.4 % (0.0-2.0); Eos # (Auto) 0.1 th/mm3 (0.0-0.4); Eos % (Auto) 1.7 % (0.0-4.0); Hematocrit 29.9 % (39.0-51.0); Hemoglobin 9.7 gm/dL (13.0-17.0); Lymph # (Auto) 1.2 th/mm3 (1.0-4.8); Lymph % (Auto) 15.3 % (9.0-44.0); Mean Corpuscular HGB Conc 32.3 % (32.0-36.0); Mean Corpuscular Hemoglobin 27.3 pg (27.0-34.0); Mean Corpuscular Volume 84.4 fL (80.0-100.0); Mean Platelet Volume 8.9 fL (7.0-11.0); Mono # (Auto) 0.3 th/mm3 (0.0-0.9); Mono % (Auto) 4.6 % (0.0-8.0); Platelet Count 201 th/mm3 (150-450); Red Blood Count 3.54 mil/mm3 (4.50-5.90); Red Cell Distribution Width 15.4 % (11.6-17.2); White Blood Count 7.6 th/mm3 (4.0-11.0)
[2018-04-09 10:19] LABS: Potassium 3.5 meq/L (3.5-5.1)
[2018-04-09 10:22] LABS: Calcium 7.8 mg/dL (8.5-10.1)
[2018-04-09 10:23] LABS: Magnesium 1.8 mg/dL (1.5-2.5)
[2018-04-09 10:28] LABS: Phosphorus 2.3 mg/dL (2.5-4.9)
[2018-04-09] MEDS: Sod Chloride 0.9% Inj 1,000 ML OTHER PRN (11:55)
[2018-04-09] MEDS: Heparin 10,000 UNITS/10 ML Vial (for IV use) OTHER PRN (11:55)
[2018-04-09 16:23] LABS: Bilirubin,Urine Negative (Negative); Clarity,Urine Clear (Clear); Color,Urine Yellow (Yellw/Straw); Leukocyte Esterase,Urine Negative (Negative); Nitrite,Urine Negative (Negative); Specific Gravity,Urine 1.015 (1.002-1.035); Urobilinogen,Urine 0.2 mg/dL (Less than 2)
[2018-04-09 16:27] LABS: RBC,Urine 0-3 /hpf (0-3); WBC,Urine 0-5 /hpf (0-5)
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
--- NOTE | 2018-04-09 18:14 | P.PNNP ---
Subjective Interval history: Patient seen in AM, during HD, has mild headache, otherwise feeling better. Physical Exam Vital signs: Vital Signs 04/08/18 20:00 04/08/18 20:20 04/09/18 00:00 Temperature 97.8 F 97.0 F L Pulse Rate 85 80 Respiratory Rate 18 18 Blood Pressure 126/72 132/78 Pulse Oximetry 97 97 98 04/09/18 01:20 04/09/18 08:00 04/09/18 14:51 Temperature 97.8 F Pulse Rate 83 Respiratory Rate 18 16 20 Blood Pressure 138/83 Pulse Oximetry 98 Intake & Output 04/08/18 04/09/18 04/09/18 18:59 06:59 18:59 Intake Total 630 / 630 1000 / 1000 Output Total 900 / 900 500 / 500 1999 Balance -900 / -900 130 / 130 -1000 / -1000 Weight 74.5 kg Intake: IV 1000 / 1000 NS Inj 1,000 ML @ As Directed 1000 / 1000 OTHER .Q0M PRN Rx#:[id number] Oral 630 / 630 Output: Urine 900 / 900 500 / 500 Hemodialysis Amount 1999 Other: # Voids 2 Date of Last Bowel Movement 04/06/18 04/06/18 Narrative: GENERAL: Well-developed, well-nourished, in no acute distress. alert and orientated HEENT: Head is normocephalic without any lesions or masses noted. Facial features are symmetric. Eyes: Extraocular muscles are intact. Conjunctivae were clear. NECK: Supple without any masses. Trachea midline no deviation. No JVD, tunneled permacath in place CARDIAC: Regular rhythm, regular rate. S1/S2 are heard. No murmurs gallops or rubs. LUNGS: Clear to auscultation bilaterally. No wheeze, rhonchi or rales. No use of accessory muscles on inspiration or expiration. ABDOMEN: Soft, nontender. Nondistended. Bowel sounds heard in all 4 quadrants. No organomegaly or masses. Negative rebound, negative guarding EXTREMITIES: No edema, pulses are equal bilaterally. No cyanosis or clubbing NEUROLOGY: Mood and affect appear appropriate. Assessment and Plan - Plan Assessment: 1. Hypertensive urgency. 2. Hyperglycemia and diabetic ketoacidosis. 3. End-stage renal disease on hemodialysis. 4. Anemia. 5. Nausea and vomiting. Plan: Patient with end stage renal disease, admitted with very high BP and high BP with DKA. Now the BS and BP improving. HD was done on Monday. Continue anti hypertensive. Follow the BP and BS. HD now, remove fluid as tolerated. Possible D/C today.
== END 2018-04-09 21:00 | disposition home or self-care (01) ==
LOC: PHED 14:50 → PHEDA 16:34 → PHICU 17:45 → PH3 04-07 18:25
PROVIDERS: ADMIT Family Medicine; ATTEND Family Medicine